=== PATIENT | female | born 1955 | race Caucasian/White ===

== ENCOUNTER 2020-04-28 10:43 | Outpatient (RCR) | payer MEDICARE, OTHER, SELFPAY ==
[2020-04-28] MEDS: COVID-19 VACC, MRNA(PFIZER)/PF 30 MCG/0.3 ML SYRINGE IM (07:27)
[2020-05-19] MEDS: COVID-19 VACC, MRNA(PFIZER)/PF 30 MCG/0.3 ML SYRINGE IM (07:30)
== END 2020-07-28 23:59 ==
LOC: IMMUN 10:43
PROVIDERS: PCP Family Medicine; Visit Provider Family Medicine
DX: Z23 Encounter for immunization (principal)
CPT/HCPCS: 0001A; 0002A; 91300

== ENCOUNTER 2020-10-19 07:00 | Outpatient (RCR) | payer MEDICARE, OTHER, SELFPAY ==
--- NOTE | 2020-09-28 08:11 | HP.PTEVAL_ITS ---
Patient's Visit Information FRANKY VILLANUEVA is a 65 year old F referred to Physical Therapy by Dr. Jerry Hardin MD with a diagnosis of imbalance. Date of Evaluation: 09/28/20 Physical Therapist: Berhane Valle, DPT, OCS, CSCS - Visit Plan Frequency: 2x /Week Duration: 2 Months Plan: Neurocom balance tedst then 2x/week for 4-8 weeks for. 1. vestibular balance ex. 2. strength program LE and posture.(pt to decide gym or home) - Subjective Balance is not great. Had an MRI and thought she had normal pressure hydrocephalus and sent to Dr. Hardin. Does not have that according to Dr. Hardin. Trying to figure out what she has. Does have h/o of DM. Has neuropathy in LE and feet feel funny sometimes. Walking has slowed down. Has not done much since pandemic started and now cannot walk that far. No falls. No AD needed. Symptoms were leaning with walking. Sleep is OK and alot. No real pain. No spinning. Basic ADLs are getting done I but has noticed she gets worn out quickly, stooping is tough. No regular ex. Not employed. Hobbies: walking and music but has gotten away from both of those. Will have test NCT at end of month - Objective Posture is kyphotic T/S positionally, correctable with cues. Holds hand gnarled and palms up appearing neurologic bit function is good and pt says it is an OCD position to avoid germs. No evidence of complaints of leaning L today. I gait and trasnfers bed and chair, I steps. LB and cervical aROM very good and WFL. reflexes 23/ patella and achilles. Sensation LE WNL to my gross light touch, will have NCT end of month. strength LE 3+ hips flexion, abd, ext. 4- knee flex and ext, ankles 4- B. coordination is WNL to toe tap and heel tap reciprocally and heel to perea test. Flexibility HS and quad min deficit. AROM LE WFL. VOR walking is easy. SLS 10 seconds plus. - Balance/Special Test Scores Functional Gait Assessment Score: 29 % Disability: 3.3400 CATSIB Score (Max score 120 seconds): 98 - Goals Goal 1:: Pt feel 90% better in balance and mobility Goal Time Frame: 4-6 Weeks Goal 2:: I approp HEP to minimize future problems Goal Time Frame: 4-6 Weeks Goal 3:: Neurocom balance test and results. Goal Time Frame: 2 Weeks - Rehabilitation Potential Physical Therapy Diagnosis: imbalance liekly from wekaness, sedentarism and possibly vestibular weakness in balance. Rehabilitation Potential: Fair - Anticipated Interventions Patient/Client Instruction: Educate patient on: Condition, Plan of Care For the Purpose of:: To decrease pain, To improve muscle performance and motor function, To increase tolerance to activity/condition/position, To improve ability of physical actions for home/community/work/leisure Therapeutic Exercise to Include: Strength training, Balance training, Neuromotor development For the Purpose of:: To improve muscle performance and motor function, To increase tolerance to activity/condition/position, To improve gait and locomotor functions Thank you for the opportunity to evaluate your patient. For Medicare and Medicare HMO plans, please review the plan of care and approve it. It will need to be FAXED BACK to us at [phone] for Medicare purposes. For Medicare only, by signing this I certify the plan of care. Please let me know if there are questions or concerns regarding this plan of care. Physician Signature: Date:
--- NOTE | 2020-10-05 07:45 | HP.PTCOM_ITS ---
PT Communication Note 10/05/[address] Jerry Hardin MD , Thank you for the referral of Dariela to [facility] for balance assessment. I have enclosed a copy of the results for your review. In summation, she scored low on the visual portion of the Sensory Organization Test. She also score lo on the left excursion, forward excursion adn left control protion of the Limits of Stability test. With these results in mind, I plan to see her 2x/week for 4-8 weeks for her POC to inclusde strength and balance exercise. If there are questions regarding her PT, please feel free to call me. Thank you. Sincerely, Berhane Valle DPT, OCS, CSCS Contact Information
--- NOTE | 2020-12-02 09:29 | HP.PT.NRP ---
FRANKY VILLANUEVA was seen in my office for initial evaluation on 09/28/20. The following Plan of Care was established for this patient: Initial Frequency: 2x /Week Initial Duration: 2 Months Patient/Client Instruction: Educate patient on: Condition, Plan of Care For the Purpose of:: To decrease pain, To improve muscle performance and motor function, To increase tolerance to activity/condition/position, To improve ability of physical actions for home/community/work/leisure Therapeutic Exercise to Include: Strength training, Balance training, Neuromotor development For the Purpose of:: To improve muscle performance and motor function, To increase tolerance to activity/condition/position, To improve gait and locomotor functions This patient was last seen in our office 10/19/20. Pertinent comments regarding their Physical therapy will appear below: Pt seen 5 visits of POC for HEP instruction. She was to f/u a week later to ensure they were going well but did not attend any visits. At this point, it has been over 6 weeks and i will disocntinue due to nonattendance. At this point I will be discontinuing this patient from physical therapy. I would be happy to see this patient again in the future if found appropriate by the physician. Thank you! Brehane Valle, DPT, OCS, CSCS Balance/Gait/Functional tests - Balance/Special Test Scores Functional Gait Assessment Score: 29 % Disability: 3.3400 CATSIB Score (Max score 120 seconds): 98 Lower Extremity Functional Score: 57
== END 2020-10-19 19:00 | disposition home or self-care (01) ==
LOC: PT 07:00
PROVIDERS: PCP Family Medicine; Referring Provider Psychiatry & Neurology Neurology; Visit Provider Psychiatry & Neurology Neurology
DX: R27.0 Ataxia, unspecified (principal)
CPT/HCPCS: 97110; 97162; 97750

== ENCOUNTER 2021-10-20 10:24 | Day surgery (SDC) | payer MEDICARE, OTHER, SELFPAY ==
[2021-10-20] VITALS (7 sets, daily range): BP systolic 102–167; BP diastolic 62–75; PULSE 61–66; RESP 16–18; TEMP 36.4–37.1; O2SAT 98–100; BMI 19.4
--- NOTE | 2021-10-20 | GASB_PTH ---
PATIENT: FRANKY VILLANUEVA LOC: [facility] U#:[id number] AGE/SX: 66/F ROOM: RE10/20/[address]: Dr. Andres Taylor DO : 1955 BED: DIS: 10/20/2021 SPEC #: [id number] RECD: 10/20/21 13:57 STATUS: KRISTIN ANKUR #: [id number] ROGERIO: 10/20/21 00:[address]: Andres Taylor DEPT: SURGICAL PATHOLOGY RECD BY: Olaf Vinson ENTERED: 10/21/21 11:04 SP TYPE: Gastric Bx OT DR: Dr. Gaurav Nunez DO Tissues: A - Gastric mucous membrane B - Duodenum, NOS C - Esophageal mucous membrane Procedures: Special Stain Group I Surgery Specimen Level IV GMS Stain (control) HEADER OPERATION: [place]oscopy, [place] [place] PRE-OP DIAGNOSIS: Chest pain TISSUE SUBMITTED: A ? Gastric antrum biopsy for histo and H. pylori, B ? Duodenum biopsy, C ? Random esophagus biopsy MICROSCOPIC DIAGNOSIS A. Gastric antrum, biopsy: Moderate chronic gastritis. See microscopic description and comment. B. Duodenum, biopsy: Fragments of duodenal mucosa, no pathologic diagnosis. C. Esophagus, random biopsy: Fragments of squamous epithelium with mild chronic inflammation. See comment. SJ:barrera 10/22/2021 COMMENT A. The results of immunohistochemistry for Helicobacter pylori will be reported separately ([id number]). A few fragments of squamous epithelium are noted adherent to the gastric mucosa. Special stain for fungi is positive for organisms in the squamous epithelial fragments (yeast and pseudohyphae) consistent with Anabel species; matched control is appropriate. These fragments may represent contaminant from esophagus. B. Special stain for fungi is positive for organisms (yeast and pseudohyphae) consistent with Anabel species; matched control is appropriate. A few fragments of duodenal mucosa are also noted most likely represents contaminant from duodenal biopsy. MICROSCOPIC DESCRIPTION Slides are reviewed. A. The specimen shows fragments of gastric mucosa with chronic inflammatory cell infiltrates in the lamina propria consisting of lymphocytes and plasma cells, consistent with moderate chronic gastritis. GROSS DESCRIPTION A - Received in fixative is one container labeled with the patient's name and designated antrum biopsy. The specimen consists of two irregular fragments of light coello soft tissue that in aggregate measure 0.6 x 0.3 x 0.1 cm. The specimen is totally submitted in one cassette. B - Received in fixative is one container labeled with the patient's name and designated duodenum biopsy. The specimen consists of two irregular fragments of light coello soft tissue that in aggregate measure 0.6 x 0.2 x 0.1 cm. The specimen is totally submitted in one cassette. C - Received in fixative is one container labeled with the patient's name and designated random esophagus biopsy. The specimen consists of multiple irregular fragments of light coello soft tissue that in aggregate measure 1 x 0.4 x 0.1 cm. The specimen is totally submitted in one cassette. / SJ:rg 10/21/2021 TC:3 CPT: 73913 x3, 23610 x2
--- NOTE | 2021-10-20 10:56 | PCM.HP.BLA ---
History and Physical Date of Admission: 10/20/21 FRANKY VILLANUEVA, is a 66 F who presents to the office today for need to schedule colonoscopy, possible change in bowels.? She reports that [facility] called her back for colonoscopy, last one was approx 3 yrs ago, no abnormal findings that she can recall.? Other than being told she had hemorrhoids.? She reports no change in bowels; she had noted a fullness in the right lower abd. She took Miralax for a week, the fullness resolved. Rare CP that radiates up neck and to ears. Started before she had cardiac w/u which was negative. No heartburn or obvious acid reflux. No nausea or vomiting. No abdominal pain. Typically no bowel complaints. No constipation or diarrhea. No melena or hematochezia. 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 Other comorbidities include anxiety, depression, OCD, hx breast cancer, alcohol use ROS Const Constitutional: Positive for fatigue ENT ENT: No difficulty swallowing Gastro GI: No abdominal pain, belching, bloating, change in bowel habits, change in stool character, coffee ground emesis, constipation, cramping, diarrhea, heartburn, difficulty swallowing, feeling full early, excessive flatus, incontinent of stools, Vomiting blood/hematemesis, Blood in stool, loose stools, Black,tarry stools, nausea/dyspepsia, pain with swallowing, vomiting or other Musc Musculoskeletal: No joint pain Skin Skin: Positive for dry skin; No yellowing of the eye or itchy eyes Psych Psychiatric: No anxiety and Positive for depression Endo Endocrine: Positive for fatigue Aller/Imm Allergy/Immunologic: No itchy eyes Brady/Lymp Hematologic/Lymphatic: No easy bleeding or easy bruising Exam Const General: cooperative, healthy appearing, well developed and well groomed Quality Reporting Tobacco Screening (CMS 138) Smoking Status: Never smoker Assessment and Plan Assessment and Plan (1) Chest pain: ?Status:?Acute (2) Colonoscopy planned: ?Status:?Acute ?Plan - Deedee Gerardo CRUSHER PLANT OPERATOR, CRUSHER PLANT OPERATOR-C: 66-year-old female who has had 2 colonoscopies previously, was called back to update colonoscopy by [facility], last colonoscopy done approximately 3 years ago, unclear why she was called back, she does not recall any abnormalities found on colonoscopy.? She recently had a fullness in the right lower abdomen, after being treated with MiraLAX that resolved.? She has infrequent intermittent chest pain that radiates up to the neck and bilateral ears, she reports negative cardiac work-up.? She is unaware of heartburn or acid reflux.? We will get EGD in addition to colonoscopy.? Need to evaluate for esophagitis, Ambrose's.? We will schedule II week follow-up after endoscopies to discuss biopsy results. I have re-examined the patient. There are no clinical changes since date of exam.
[2021-10-20] MEDS: Lactated Ringers 1,000 ML 15 ML IV (11:06)
[2021-10-20 11:31] LABS: Bedside Glucose 241 mg/dL (74-106)
--- NOTE | 2021-10-20 12:15 | IMM_PTH ---
PATIENT: FRANKY VILLANUEVA LOC: [facility] U#:[id number] AGE/SX: 66/F ROOM: RE10/20/[address]: Dr. Andres Taylor DO : 1955 BED: DIS: 10/20/2021 SPEC #: [id number] RECD: 10/21/21 12:53 STATUS: KRISTIN REZuri #: [id number] ROGERIO: 10/20/21 12:[address]: Andres Taylor DEPT: IMMUNOHISTOCHEMISTRY RECD BY: Beulah Cruz ENTERED: 10/21/21 12:54 SP TYPE: IMMUNO OTHR DR: Dr. Gaurav Nunez DO Tissues: A - Stomach, NOS Procedures: H Pylori (initial) PHYSICIAN & INSTITUTION [place] [id number] SPECIMEN INFORMATION: Tissue Source: A ? Gastric antrum biopsy Clinical Info: Chest pain Specimen Number: [id number] CPT code: 98733 METHODOLOGY: Deparaffinized sections of prefer/formalin-fixed tissue or PAP/DQ stained slides are incubated with monoclonal/polyclonal antibodies/oligonucleotide probes. Localization is made via biotin free immunoperoxidase method. Appropriate controls are performed and reacted as expected. Results on target cell population are indicated in the following table: RESULTS: ANTIBODY / CLONE RESULT Block A H Pylori (polyclonal) negative These tests were developed and their performance characteristics determined by [facility]. They may not have been cleared or approved by the U.S. Food and Drug Administration. The FDA has determined that such clearance or approval is not necessary. The above immunohistochemical/dualISH markers are ordered and reviewed by the Pathologist. INTERPRETATION: A. Gastric antrum, biopsy: Negative for Helicobacter pylori organisms. SJ:barrera 10/22/2021
--- NOTE | 2021-10-20 12:54 | OP.CCLET_ITS ---
11/25/2021 Gaurav Nunez Re : Upper GI endoscopy procedure for Dariela Guidry Dear Mayra This procedure was performed on Wednesday, October 20, 2021. My impressions and recommendations are as follows: Impressions : - Esophageal plaques were found, consistent with candidiasis. Biopsied. - Gastritis. Biopsied. - Normal first portion of the duodenum. Biopsied. Recommendations : - Discharge patient to home. - Resume previous diet. - Continue present medications. My findings are described in the full procedure note, which is enclosed. If I can be of further assistance, please feel free to contact me at . Sincerely, Andres Taylor, 10/20/2021 12:53:56 PM This report has been signed electronically.
--- NOTE | 2021-10-20 12:54 | OP.EGD_ITS ---
Patient Name: Dariela Guidry Procedure Date: 10/20/2021 12:18 PM Date of : 1955 Age: 66 Procedure: Upper GI endoscopy Indications: Functional Dyspepsia, Dysphagia, Suspected reflux esophagitis Providers: Andres Taylor DO Medicines: Monitored Anesthesia Care Patient Profile: This is a 66 year old female. Refer to note in patient chart for documentation of history and physical. Patient has symptoms of acute chest pain. Complications: No immediate complications. Procedure: Pre-Anesthesia Assessment: - Prior to the procedure, a History and Physical was performed, and patient medications and allergies were reviewed. The patient is competent. The risks and benefits of the procedure and the sedation options and risks were discussed with the patient. All questions were answered and informed consent was obtained. Patient identification and proposed procedure were verified by the physician in the pre-procedure area. Mental Status Examination: alert and oriented. Airway Examination: normal oropharyngeal airway and neck mobility. Respiratory Examination: clear to auscultation. CV Examination: normal. Prophylactic Antibiotics: The patient does not require prophylactic antibiotics. Prior Anticoagulants: The patient has taken no previous anticoagulant or antiplatelet agents. ASA Grade Assessment: II - A patient with mild systemic disease. After reviewing the risks and benefits, the patient was deemed in satisfactory condition to undergo the procedure. The anesthesia plan was to use moderate sedation / analgesia (conscious sedation). Immediately prior to administration of medications, the patient was re-assessed for adequacy to receive sedatives. The heart rate, respiratory rate, oxygen saturations, blood pressure, adequacy of pulmonary ventilation, and response to care were monitored throughout the procedure. The physical status of the patient was re-assessed after the procedure. After obtaining informed consent, the endoscope was passed under direct vision. Throughout the procedure, the patient's blood pressure, pulse, and oxygen saturations were monitored continuously. The colonoscope was introduced through the mouth, and advanced to the second part of duodenum. The upper GI endoscopy was accomplished without difficulty. The patient tolerated the procedure well. Scope In: 12:25:35 PM Scope Out: 12:31:49 PM Total Procedure Duration Time 0 hours 6 minutes 14 seconds Findings: Diffuse, yellow plaques were found in the entire esophagus. Biopsies were taken with a cold forceps for histology. Verification of patient identification for the specimen was done. Estimated blood loss was minimal. Localized moderate inflammation characterized by congestion (edema), erosions and erythema was found in the gastric body. Biopsies were taken with a cold forceps for histology. Verification of patient identification for the specimen was done. Estimated blood loss was minimal. The first portion of the duodenum was normal. Biopsies were taken with a cold forceps for histology. Verification of patient identification for the specimen was done. Estimated blood loss was minimal. Impression: - Esophageal plaques were found, consistent with candidiasis. Biopsied. - Gastritis. Biopsied. - Normal first portion of the duodenum. Biopsied. Recommendation: - Discharge patient to home. - Resume previous diet. - Continue present medications. Procedure Code(s): --- Professional --- 19593, Esophagogastroduodenoscopy, flexible, transoral; with biopsy, single or multiple CPT copyright 2017 [employer]. All rights reserved. The codes documented in this report are preliminary and upon coder operator review may be revised to meet current compliance requirements. Andres Taylor DO 10/20/2021 12:53:56 PM This report has been signed electronically. Number of Addenda: 1 Note Initiated On: 10/20/2021 12:18 PM Addendum Number: 1 Addendum Date: 11/25/2021 5:56:38 AM MAC was used as sedation for this procedure. Andres Taylor DO 11/25/2021 5:56:48 AM This report has been signed electronically.
--- NOTE | 2021-10-20 12:57 | OP.COLON_ITS ---
Patient Name: Dariela Guidry Procedure Date: 10/20/2021 12:32 PM Date of : 1955 Age: 66 Procedure: Colonoscopy Indications: Screening for colorectal malignant neoplasm Providers: Andres Taylor DO Medicines: Monitored Anesthesia Care Patient Profile: This is a 66 year old female. Refer to note in patient chart for documentation of history and physical. Patient has symptoms of acute chest pain. Last Colonoscopy: date unknown. Unable to locate last colonoscopy report. Complications: No immediate complications. Procedure: Pre-Anesthesia Assessment: - Prior to the procedure, a History and Physical was performed, and patient medications and allergies were reviewed. The patient is competent. The risks and benefits of the procedure and the sedation options and risks were discussed with the patient. All questions were answered and informed consent was obtained. Patient identification and proposed procedure were verified by the physician in the pre-procedure area. Mental Status Examination: alert and oriented. Airway Examination: normal oropharyngeal airway and neck mobility. Respiratory Examination: clear to auscultation. CV Examination: normal. Prophylactic Antibiotics: The patient does not require prophylactic antibiotics. Prior Anticoagulants: The patient has taken no previous anticoagulant or antiplatelet agents. ASA Grade Assessment: II - A patient with mild systemic disease. After reviewing the risks and benefits, the patient was deemed in satisfactory condition to undergo the procedure. The anesthesia plan was to use moderate sedation / analgesia (conscious sedation). Immediately prior to administration of medications, the patient was re-assessed for adequacy to receive sedatives. The heart rate, respiratory rate, oxygen saturations, blood pressure, adequacy of pulmonary ventilation, and response to care were monitored throughout the procedure. The physical status of the patient was re-assessed after the procedure. After I obtained informed consent, the scope was passed under direct vision. Throughout the procedure, the patient's blood pressure, pulse, and oxygen saturations were monitored continuously. The colonoscope was introduced through the anus and advanced to the cecum, identified by appendiceal orifice and ileocecal valve. The colonoscopy was performed without difficulty. The patient tolerated the procedure well. The quality of the bowel preparation was adequate. Scope In: 12:33:54 PM Scope Withdrawal Time 0 hours 10 minutes 17 seconds Scope Out: 12:49:13 PM Total Procedure Duration Time 0 hours 15 minutes 19 seconds Findings: The perianal and digital rectal examinations were normal. The recto-sigmoid colon was moderately tortuous. There was mild spasm in the sigmoid colon. A few small-mouthed diverticula were found in the sigmoid colon. Impression: - Tortuous colon. - Mild colonic spasm. - Diverticulosis in the sigmoid colon. - No specimens collected. Recommendation: - Discharge patient to home. - Resume previous diet - advance as tolerated to resume previous diet. - Continue present medications. - Repeat colonoscopy in 10 years for screening purposes. Procedure Code(s): --- Professional --- G0121, Colorectal cancer screening; colonoscopy on individual not meeting criteria for high risk CPT copyright 2017 [employer]. All rights reserved. The codes documented in this report are preliminary and upon financial analyst accountant review may be revised to meet current compliance requirements. Andres Taylor DO 10/20/2021 12:56:25 PM This report has been signed electronically. Number of Addenda: 2 Note Initiated On: 10/20/2021 12:32 PM Addendum Number: 1 Addendum Date: 11/25/2021 5:56:56 AM MAC was used as sedation for this procedure. Andres aTylor DO 11/25/2021 5:57:08 AM This report has been signed electronically. Addendum Number: 2 Addendum Date: 11/25/2021 5:57:18 AM MAC was used as sedation for this procedure. Andres Taylor DO 11/25/2021 5:57:24 AM This report has been signed electronically.
--- NOTE | 2021-10-20 12:57 | OP.CCLET_ITS ---
11/25/2021 Gaurav Nunez Re : Colonoscopy procedure for Dariela Guidry Rosendar Mayra This procedure was performed on Wednesday, October 20, 2021. My impressions and recommendations are as follows: Impressions : - Tortuous colon. - Mild colonic spasm. - Diverticulosis in the sigmoid colon. - No specimens collected. Recommendations : - Discharge patient to home. - Resume previous diet - advance as tolerated to resume previous diet. - Continue present medications. - Repeat colonoscopy in 10 years for screening purposes. My findings are described in the full procedure note, which is enclosed. If I can be of further assistance, please feel free to contact me at . Sincerely, Andres Taylor, 10/20/2021 12:56:25 PM This report has been signed electronically.
== END 2021-10-20 14:10 | disposition home or self-care (01) ==
LOC: EN 10:26 → AC 10:28
PROVIDERS: PCP Family Medicine; Referring Provider Family Medicine; Visit Provider Internal Medicine Gastroenterology
PROC: 0DJD8ZZ Inspection of Lower Intestinal Tract, Via Natural or Artificial Opening Endoscopic (ICD-10-PCS; CPT 45378; principal; 2021-10-20 12:10)
DX: K29.50 Unspecified chronic gastritis without bleeding (principal); E10.40 Type 1 diabetes mellitus with diabetic neuropathy, unspecified; Z79.4 Long term (current) use of insulin; K20.90 Esophagitis, unspecified without bleeding; Q43.8 Other specified congenital malformations of intestine; I10 Essential (primary) hypertension; F32.A Depression, unspecified; F41.9 Anxiety disorder, unspecified; E78.00 Pure hypercholesterolemia, unspecified; Z79.82 Long term (current) use of aspirin; Z79.899 Other long term (current) drug therapy
CPT/HCPCS: 43239; 45378; 82962; 88305; 88312; 88342; J7120; J2405

== ENCOUNTER 2023-05-27 12:50 | Emergency (ER) | payer MEDICARE, OTHER, SELFPAY ==
[2023-05-27 12:50] VITALS: BP 198/69; PULSE 70; RESP 18; TEMP 36.1; O2SAT 100; BMI 21.6
--- NOTE | 2023-05-27 13:08 | CT_ITS ---
EXAM: CT HEAD WITHOUT INTRAVENOUS CONTRAST CLINICAL INDICATION: head injury TECHNIQUE: Multiple axial images were obtained of the head without intravenous contrast. This CT exam was performed using one or more of the following dose reduction techniques: automated exposure control, adjustment of the mA and/or kV according to patient size, and/or use of iterative reconstruction technique. RADIATION DOSE: CTDIvol = 44.99 mGy, DLP = 796.11 mGy-cm COMPARISON: No relevant prior studies available. FINDINGS: BRAIN AND EXTRA-AXIAL SPACES: Anterior periventricular white matter hypodensities in both cerebral hemispheres are chronic white matter ischemic changes. No intra- or extra-axial hemorrhage. No intracranial mass or mass effect. Posterior fossa structures are unremarkable. No hydrocephalus. Basal cisterns are patent. BONES/JOINTS: Unremarkable. No discrete lytic or blastic abnormalities. SINUSES: Unremarkable as visualized. Clear. MASTOID AIR CELLS: Unremarkable. Clear. ORBITS: Visualized globes, extraocular muscles, optic nerves and retrobulbar fat appear unremarkable. CT/Brain/Head without Contrast IMPRESSION: 1. No CT evidence of intracranial bleeding, acute ischemic infarct or acute intracranial abnormality. 2. Chronic anterior periventricular white matter ischemic changes in both cerebral hemispheres. Electronically Signed: Nicholas Stuart MD at 14:07 EDT ,
--- NOTE | 2023-05-27 13:08 | CT_ITS ---
EXAM: CT CERVICAL SPINE WITHOUT INTRAVENOUS CONTRAST CLINICAL INDICATION: head injury TECHNIQUE: Helically acquired images were obtained of the cervical spine without intravenous contrast. 2D reformatted images were reviewed. This CT exam was performed using one or more of the following dose reduction techniques: automated exposure control, adjustment of the mA and/or kV according to patient size, and/or use of iterative reconstruction technique. RADIATION DOSE: CTDIvol = 11.89 mGy, DLP = 281.33 mGy-cm COMPARISON: No relevant prior studies available. FINDINGS: VERTEBRAE: Minimal degenerative anterolisthesis of C3 on C4. No discrete lytic or blastic abnormality. Normal vertebral body heights. No suspicious fractures. Normal craniocervical junction and cervicothoracic junction. No lytic or blastic lesions. DISCS/SPINAL CANAL/NEURAL FORAMINA: Pronounced disc space height narrowing at C5-C6 disc space level with mildly prominent osteophyte in the right uncovertebral joint causing mild stenosis of the right C5-C6 intervertebral neural foramen. Normal remaining cervical intervertebral neural foramina. Normal central canal. Normal remaining cervical disc space heights. SOFT TISSUES: Unremarkable. No prevertebral soft tissue swelling. LYMPH NODES: Unremarkable. No cervical adenopathy. LUNG APICES: Unremarkable as visualized. Clear. CT/Spine Cervical without Contras IMPRESSION: 1. No CT evidence of acute fracture of the cervical spine, craniocervical junction and cervicothoracic junction. 2. Mild stenosis of the right C5-C6 intervertebral neural foramen due to osteophyte arising from the right uncovertebral joint and degenerative disc space height narrowing. 3. Minimal degenerative anterolisthesis of C3 on C4. Electronically Signed: Nicholas Stuart MD at 14:11 EDT ,
--- NOTE | 2023-05-27 13:11 | EDS_ITS ---
HPI <MAHSA Blanco - Last Filed: 05/27/23 15:54> HPI - Fall History of Present Illness Chief Complaint: Fall Narrative Narrative: Patient stepped up onto a curb and lost her balance falling backwards striking her head on the pavement. No LOC. Her friend and a passerby helped her up and she was able to ambulate. She went into a restaurant with her friend but seemed confused?she did not recall being there before and seemed confused about ordering. Her friend brought her to the ED for evaluation. She is not on blood thinners. She denies headache, visual changes, nausea or vomiting, or neck pain. Her tailbone feels sore. [facility] <MAHSA Blanco - Last Filed: 05/27/23 15:54> [facility] Medical History (Updated 05/27/23 @ 15:47 by MAHSA Blanco) Alcohol use Anxiety Cancer Change in bowel movement Depression Diabetic neuropathy associated with type 1 diabetes mellitus Diabetic retinopathy Dietary restriction Easy bruising High cholesterol History of stress test Hypertension Insulin dependent diabetes mellitus Non-smoker Right carotid bruit Unsteadiness Vaginal stenosis Wears glasses Home Medications fluoxetine 20 mg capsule 20 mg PO DAILY 06/09/21 [History Last Taken Unknown] insulin glargine 100 unit/mL (3 mL) subcutaneous pen (Lantus Solostar U-100 Insulin) 11 unit subcut QPM 06/09/21 [History Last Taken Unknown] insulin lispro 100 unit/mL subcutaneous pen (Humalog KwikPen (U-100) Insulin) 8 unit subcut TID SLIDING SCALE 06/09/21 [History Last Taken 10/20/21] lisinopril 40 mg tablet 40 mg PO DAILY 06/09/21 [History Last Taken 10/20/21] atorvastatin 10 mg tablet 10 mg PO DAILY 07/15/21 [History Last Taken Unknown] aspirin 81 mg tablet,delayed release 81 mg PO DAILY 10/14/21 [History Last Taken 10/17/21] Allergy/AdvReac Type Severity Reaction Status Date / Time No Known Allergies Allergy Verified 11/08/21 15:31 Surgical History History of cardiac catheterization Hx of colonoscopy S/P lumpectomy of breast Social History Smoking Status: Never smoker alcohol intake: current alcohol intake frequency: 3 or more drinks per day Alcohol type: wine ROS <MAHSA Blanco - Last Filed: 05/27/23 15:54> ROS ED ROS Narrative Eyes: Negative for visual change. GI: Negative for nausea, vomiting. Neuro: Negative for headache, motor/sensory dysfunction. Skin: Positive for skin tear. Musc: Negative for joint pain, swelling, trauma. EXAM <MAHSA Blanco - Last Filed: 05/27/23 15:54> Physical Exam Narrative Exam Narrative: CONST: Patient sitting in no acute distress. EYES: Normal inspection. PERRL, EOMI. ENT: Head normocephalic atraumatic, no raccoon eyes or hernández sign, no hemotympanum, no nasal septal hematoma, no CSF otorrhea or rhinorrhea. NECK: Normal inspection. No midline spinal tenderness, no step off or crepitus. RESP: No respiratory distress, CTAB. Chest wall nontender. CVS: Regular rate and rhythm, no murmur, no gallop. ABD: Soft and nontender, no guarding or rebound, nondistended. Back: Normal inspection, no midline tenderness. SKIN: 4 cm skin tear right dorsal forearm. EXTREMITIES: Normal appearance upper and lower extremities, full ROM, no bony tenderness, 2+ radial DP pulses. NEURO: Alert and oriented x 4. PSYCH: Normal affect. Const Vital Signs: 05/27/23 12:50 05/27/23 13:04 05/27/23 14:50 Temperature 97.0 F L Temperature Source Temporal Pulse Rate 70 72 Respiratory Rate 18 16 Respiratory Effort Normal Non-Labored Respiratory Depth Normal Respiratory Pattern Normal Blood Pressure 198/69 H 176/77 H Blood Pressure Mean 112 110 Pulse Ox 100 97 Oxygen Delivery Method Room Air Room Air <Dr. Rajwinder Naik DO - Last Filed: 05/27/23 15:45> Physical Exam Const Vital Signs: 05/27/23 12:50 05/27/23 13:04 05/27/23 14:50 Temperature 97.0 F L Temperature Source Temporal Pulse Rate 70 72 Respiratory Rate 18 16 Respiratory Effort Normal Non-Labored Respiratory Depth Normal Respiratory Pattern Normal Blood Pressure 198/69 H 176/77 H Blood Pressure Mean 112 110 Pulse Ox 100 97 Oxygen Delivery Method Room Air Room Air [facility] <MAHSA Blanco - Last Filed: 05/27/23 15:54> [facility] Narrative Medical decision making narrative: History gathered from: patient and friend Differential: Closed head injury, skull fracture, intracranial hemorrhage She had a mechanical fall off a curb with head injury. No LOC or blood thinners. She had transient confusion and is now back to baseline. She is awake and alert with GCS 15. She is hypertensive with otherwise stable vital signs. She has no external signs of head injury or basilar skull fracture and no cervical pain. Exam is notable for right forearm skin tear and lower sacral and coccyx tenderness. CT scans of the head and neck show no acute findings. X-ray shows acute coccyx fracture. Patient was advised on symptomatic management including a donut pillow, ice, and [id number] analgesia. She is able to ambulate. She was discharged in stable condition. Patient seen and evaluated with JOSE. I personally interviewed and examined the patient. I was involved in all aspects of patient's orders, interpretation of results, and treatment. Patient presents after a fall. She states she had gone to a shoe store with a friend and was standing on the curb when she remembered she needed to get some coins. She apparently turned and fell off the curb onto the street striking her head. No loss of consciousness. She was helped up by some individuals and then she was able to walk to a restaurant but she did not remember the name of the restaurant and her friend thought that she just seemed off so brought her in for evaluation. Patient denies loss of consciousness. She denies significant neck pain or paresthesias or weakness in extremities. She has been ambulatory. She did sustain a skin avulsion to her right forearm. Also complains of some pain to her tailbone. HEENT-no significant evidence of trauma to her head. She does have some mild soft tissue swelling over the left posterior occipital scalp. No lacerations. No bony step-offs or depressions. No hemotympanum. Pupils equal react light bilaterally. Cardiovascular-heart is regular rate and rhythm with a 2 of 6 stock ejection murmur noted. Lungs-clear to auscultation bilaterally. No chest wall tenderness on exam. Abdomen-normoactive bowel sounds. Soft and nontender to palpation. Extremities-patient has superficial abrasion to the right volar forearm measuring 3 cm in length. No active bleeding. No bony tenderness on exam. Patient does have tenderness to palpation over the sacrum and coccyx on exam. No tenderness to palpation over the lower extremities. Patient presents with a fall with injury to her coccyx and head. CT scan of the brain without contrast was unremarkable. CT of the C-spine showed no fractures only degenerative changes. X-ray of the coccyx and sacrum showed a nondisplaced fracture of the coccyx. This point she will be offered pain medication. She is advised to use a donut cushion when sitting. Advised to follow-up with primary care physician within the next 5 to 7 days. Lab Data Labs: Laboratory Results - last 24 hr 05/27/23 13:18 POC Glucose 233 H Radiography Diagnostic Testing: Clinical Impression(s) from Imaging Studies Brain CT 05/27/23 13:08 IMPRESSION: 1. No CT evidence of intracranial bleeding, acute ischemic infarct or acute intracranial abnormality. 2. Chronic anterior periventricular white matter ischemic changes in both cerebral hemispheres. Electronically Signed: Nicholas Stuart MD at 14:07 EDT Reading Location ID and State: [facility] / [place] , Service support , Cervical Spine CT 05/27/23 13:08 IMPRESSION: 1. No CT evidence of acute fracture of the cervical spine, craniocervical junction and cervicothoracic junction. 2. Mild stenosis of the right C5-C6 intervertebral neural foramen due to osteophyte arising from the right uncovertebral joint and degenerative disc space height narrowing. 3. Minimal degenerative anterolisthesis of C3 on C4. Electronically Signed: Nicholas Stuart MD at 14:11 EDT , Sacrum and Coccyx X-Ray 05/27/23 13:30 IMPRESSION: Suspicious acute incomplete fracture in the dorsal surface of the coccyx. Electronically Signed: Nicholas Stuart MD at 15:38 EDT , <Dr. Rajwinder Naik, DO - Last Filed: 05/27/23 15:45> [facility] Narrative Medical decision making narrative: History gathered from: patient and friend Differential: Closed head injury, skull fracture, intracranial hemorrhage She had a mechanical fall off a curb with head injury. No LOC or blood thinners. She had transient confusion and is now back to baseline. She is awake and alert with GCS 15. She is hypertensive with otherwise stable vital signs. She has no external signs of head injury or basilar skull fracture and no cervical pain. Exam is notable for right forearm skin tear and lower sacral and coccyx tenderness. CT scans of the head and neck show no acute findings. Patient seen and evaluated with JOSE. I personally interviewed and examined the patient. I was involved in all aspects of patient's orders, interpretation of results, and treatment. Patient presents after a fall. She states she had gone to a shoe store with a friend and was standing on the curb when she remembered she needed to get some coins. She apparently turned and fell off the curb onto the street striking her head. No loss of consciousness. She was helped up by some individuals and then she was able to walk to a restaurant but she did not remember the name of the restaurant and her friend thought that she just seemed off so brought her in for evaluation. Patient denies loss of consciousness. She denies significant neck pain or paresthesias or weakness in extremities. She has been ambulatory. She did sustain a skin avulsion to her right forearm. Also complains of some pain to her tailbone. HEENT-no significant evidence of trauma to her head. She does have some mild soft tissue swelling over the left posterior occipital scalp. No lacerations. No bony step-offs or depressions. No hemotympanum. Pupils equal react light bilaterally. Cardiovascular-heart is regular rate and rhythm with a 2 of 6 stock ejection murmur noted. Lungs-clear to auscultation bilaterally. No chest wall tenderness on exam. Abdomen-normoactive bowel sounds. Soft and nontender to palpation. Extremities-patient has superficial abrasion to the right volar forearm measuring 3 cm in length. No active bleeding. No bony tenderness on exam. Patient does have tenderness to palpation over the sacrum and coccyx on exam. No tenderness to palpation over the lower extremities. Patient presents with a fall with injury to her coccyx and head. CT scan of the brain without contrast was unremarkable. CT of the C-spine showed no fractures only degenerative changes. X-ray of the coccyx and sacrum showed a nondisplaced fracture of the coccyx. This point she will be offered pain medication. She is advised to use a donut cushion when sitting. Advised to follow-up with primary care physician within the next 5 to 7 days. Lab Data Labs: Laboratory Results - last 24 hr 05/27/23 13:18 POC Glucose 233 H Radiography Diagnostic Testing: Clinical Impression(s) from Imaging Studies Brain CT 05/27/23 13:08 IMPRESSION: 1. No CT evidence of intracranial bleeding, acute ischemic infarct or acute intracranial abnormality. 2. Chronic anterior periventricular white matter ischemic changes in both cerebral hemispheres. Electronically Signed: Nicholas Stuart MD at 14:07 EDT , Cervical Spine CT 05/27/23 13:08 IMPRESSION: 1. No CT evidence of acute fracture of the cervical spine, craniocervical junction and cervicothoracic junction. 2. Mild stenosis of the right C5-C6 intervertebral neural foramen due to osteophyte arising from the right uncovertebral joint and degenerative disc space height narrowing. 3. Minimal degenerative anterolisthesis of C3 on C4. Electronically Signed: Nicholas Stuart MD at 14:11 EDT , Sacrum and Coccyx X-Ray 05/27/23 13:30 IMPRESSION: Suspicious acute incomplete fracture in the dorsal surface of the coccyx. Electronically Signed: Nicholas Stuart MD at 15:38 EDT , 2 view x-rays of coccyx and sacrum obtained interpreted by myself as minimally displaced coccyx fracture. Radiology in agreement. Discharge Plan Triage Chief Complaint: Fall ED Midlevel Provider: Vika Bill ED Provider: Rajwinder Naik Dx/Rx/DC Orders Clinical Impression: Closed head injury, Skin tear of right upper extremity, Fall, Closed fracture of coccyx Instructions: ED Tailbone (Coccyx) Fracture Prescriptions: No Action lisinopril 40 mg tablet 40 mg PO DAILY fluoxetine 20 mg capsule 20 mg PO DAILY insulin lispro [Humalog KwikPen Insulin] 100 unit/mL insulin pen 8 unit subcut TID Lantus Solostar U-100 Insulin 100 unit/mL (3 mL) insulin pen 11 unit subcut QPM atorvastatin 10 mg tablet 10 mg PO DAILY aspirin [Aspir-81] 81 mg Tablet,Delayed Release (Dr/Ec) 81 mg PO DAILY Primary Care Provider: Norberto Pabon Referrals: Gaurav Nunez DO [Non-Staff] - Activity Restrictions/Additional Instructions: You have fractured your coccyx which is your tailbone. This will heal on its own over 6 to 8 weeks. You can ice and take Tylenol every 6 hours as needed. I recommend buying a donut pillow so that when you sit you do not put pressure on the area. I also want to avoid straining to have a bowel movement as this can cause increased pain so use stool softeners as needed such as MiraLAX or Colace. Disposition Disposition: Home, Self Care
--- NOTE | 2023-05-27 13:30 | RAD_ITS ---
EXAM: XR SACRUM AND COCCYX, 2 OR MORE VIEWS CLINICAL INDICATION: coccyx pain TECHNIQUE: Frontal and lateral views of the sacrum and coccyx. COMPARISON: No relevant prior studies available. FINDINGS: SACRUM/COCCYX: Suspicious tiny crack in the dorsal surface of coccyx. No displaced fracture. No destructive or sclerotic lesions. Note that overlapping bowel shadows may however obscure fine detail in the frontal view. Sacroiliac joints are unremarkable. SOFT TISSUES: Unremarkable. No soft tissue swelling or gas. RAD/Sacrum-Coccyx min 2 Views IMPRESSION: Suspicious acute incomplete fracture in the dorsal surface of the coccyx. Electronically Signed: Nicholas Stuart MD at 15:38 EDT ,
[2023-05-27 13:36] LABS: Bedside Glucose 233 mg/dL (74-106)
[2023-05-27] MEDS: Acetaminophen 325 MG Tablet 650 MG PO (14:39)
[2023-05-27] MEDS: Diphth,Pertuss(Acell),Tet Vac 0.5 ML Vial IM (14:41)
[2023-05-27 14:50] VITALS: BP 176/77; PULSE 72; RESP 16; O2SAT 97
[2023-05-27 16:00] VITALS: BP 177/71; PULSE 68; RESP 16; TEMP 36.6; O2SAT 97
== END 2023-05-27 16:08 | disposition home or self-care (01) ==
PROVIDERS: Emergency Provider Emergency Medicine; PCP Family Medicine; Visit Provider Emergency Medicine
DX: S09.90XA Unspecified injury of head, initial encounter (principal); S32.2XXA Fracture of coccyx, initial encounter for closed fracture; E10.40 Type 1 diabetes mellitus with diabetic neuropathy, unspecified; S41.111A Laceration without foreign body of right upper arm, initial encounter; I10 Essential (primary) hypertension; E78.00 Pure hypercholesterolemia, unspecified; M48.02 Spinal stenosis, cervical region; Z23 Encounter for immunization; W10.1XXA Fall (on)(from) sidewalk curb, initial encounter
CPT/HCPCS: 70450; 72125; 72220; 82962; 90471; 90715; 99282

== ENCOUNTER 2023-10-17 09:10 | Outpatient (RCR) | payer MEDICARE, OTHER, SELFPAY ==
--- NOTE | 2023-10-18 09:44 | HP.PTEVAL_ITS ---
Patient's Visit Information Visit Information Visit Information: FRANKY VILLANUEVA is a 68 year old F referred to Physical Therapy by Dr. Norberto Pabon DO with a diagnosis of B leg weakness. Date of Evaluation: 10/17/23 Physical Therapist: Pj David DPT Visit Plan Frequency: 1x/Week Duration: 6 Weeks Plan: Pt. desires to complete exercises on her own at this point in time. I stressed progressive walking program. I also gave her standing balance/LE strengthening exercises. She does have some edema in BLEs. I first recommending overall more general mobility, but also some compression garments. I also stressed frequent foot checks due to her neuropathy in BLEs. Pt. to complete exercises on her own then follow up with PT as needed. Subjective Subjective: Pt. is here today for her initial evaluation with diagnosis of B leg weakness. Pt. is here today with her friend. Pt. reports over the past few years stemming around the initial stages of the COVID pandemic that she began to be more sedentary and staying with in home. Her also recently resulting in further sedentary lifestyle. She also fell ~4-6 months ago resu lting in reports of further fear of falling and reduced activity. She recently saw podiatry of her LEs, whom suggested overall increased mobility to assist with her BLE edema. Possible vascular insufficiency??? She reports overall being very fearful of falling and does not like to leave the home. She also reports having increased fear while in shower and therefore reduces her bathing routines. Pt. has previously uncontrolled diabetes and has resultant diabetic neuropathy in her LEs. Pt. is hopeful to increase her strength and reduce her risk for future falls. Objective Objective: POSTURE: Pt. has decent posture in stance, Normal wt. shift between BLEs. PALPATION: Pt. has marked edema in B distal LEs. Pt. has some flaking of her skin, no compression stockings on today. NEURO: Reduced sensation to light and sharp touch of BLEs from knee down. Pt. has reduced patellar and achilles DTR 1+ bilaterally. Pt. is able to rise on heels and toes with slight balance aide of wall. ROM: Pt. has good ROM of BLEs without issues. Tightness noted in B HS and B quads. tightness noted in calves as well. MMT: Pt. has 5/5 strength throughout BLEs and symmetrical. GAIT: Pt. ambulates without AD, decent step length noted. Slight occasional lateral deviation, but minimal. TU.2sec without AD 30 sec sit to stand rep test: 13 without use of UEs. STAIRS: Pt. able to complete with use of BHR with reciprocal pattern. Pt. does report increased fear of falling with descending. Balance/Special Test Scores Functional Gait Assessment Score: 24 % Disability: 20.0000 Lower Extremity Functional Score: 33 Goals Goal 1:: LTG: pt. to be I with HEP for balance and progressive walking program. Goal Time Frame: 2-4 Weeks Goal 2:: LTG: Pt. to be have improved FGA to 26/30 indicating increased overall functional stability. Goal 3:: LTG: pt. to have improve TUG time to less than 10sec indicating good functional mobility. Goal Time Frame: 2-4 Weeks Rehabilitation Potential Physical Therapy Diagnosis: Pt. has signs and symptoms consistent with B leg weakness, but more so with high levels of fear of falling and neuropathy in BLEs effecting her balance. Pt. would benefit from a progressive walking program and progressive standing LE exercises with a balance component. Pt. would assist in increasing her general activity tolerance. Rehabilitation Potential: Good Anticipated Interventions Patient/Client Instruction: Educate patient on: Condition, Plan of Care, Risk Factors and Benefits of Fitness Program For the Purpose of:: To improve decision making, To facilitate caregiver knowledge, To improve self management, To prevent re-injury and To improve ability to perform tasks related to life management Therapeutic Exercise to Include: Strength training, Power training, Balance training and Gait and locomotor training For the Purpose of:: To improve nutrient delivery to tissue, To increase oxygenation perfusion, To improve muscle performance and motor function, To improve ability to perform ADL's, To improve health of tissue, To decrease soft tissue restriction, To improve endurance and To improve balance Text: Thank you for the opportunity to evaluate your patient. For Medicare and Medicare HMO plans, please review the plan of care and approve it. It will need to be FAXED BACK to us at [phone] for Medicare purposes. For Medicare only, by signing this I certify the plan of care. Please let me know if there are questions or concerns regarding this plan of care. Physician Signature: Date:
== END 2023-10-17 19:00 | disposition home or self-care (01) ==
LOC: PT 09:10
PROVIDERS: PCP Family Medicine; Referring Provider Family Medicine; Visit Provider Family Medicine
DX: R29.898 Other symptoms and signs involving the musculoskeletal system (principal)
CPT/HCPCS: 97161

== ENCOUNTER → 2024-01-11 | Outpatient (CLI) | payer MEDICARE, OTHER, SELFPAY ==
--- NOTE | 2024-01-11 09:02 | ART_ITS ---
Reason For Study: Decreased pedal pulses Procedure A bilateral lower extremity continuous wave Doppler with analog waveform analysis,segmental pressures,and ankle brachial indexes without exercise. Left Segmental Pressures Left brachial= 173mmHg. Left posterior tibial artery = 218mmHg. Left dorsalis pedis artery = 223mmHg. Left digit = 123 mmHg. The left dorsalis pedis waveforms are triphasic. The left posterior tibial artery waveforms are triphasic. Right Segmental Pressures Right brachial= 169mmHg. Right posterior tibial artery = 212mmHg. Right dorsalis pedis artery = 233mmHg. Right digit = 110 mmHg. The right dorsalis pedis waveforms are triphasic. The right posterior tibial artery waveforms are triphasic. Indices The right ankle brachial index by the dorsalis pedis is 1.35. The right ankle brachial index by the posterior tibial artery is 1.23. The right digital-brachial index is 0.64. The left ankle brachial index by the dorsalis pedis is 1.29. The left ankle brachial index by the posterior tibial artery is 1.26. The left digital-brachial index is 0.71. VL/Lower Ext Art Exam w/o Exercis Interpretation Summary Right NED 1.35, normal. Doppler/PVR waveforms of the right leg normal at rest. TBI diminished, pedal/digit disease vs spasm. Left NED 1.29, normal. Doppler/PVR waveforms of the left leg normal at rest. TB I diminished, pedal/digit disease vs spasm. Ordering Physician: Shayna Villarreal Referring Physician: Norberto Pabon Performed By: Tiffanie Diaz RVT
--- NOTE | 2024-01-11 09:02 | VDLE_ITS ---
Reason For Study: Bilateral leg swelling RIGHT LEFT CFV is compressible, spontaneous, phasic, CFV is compressible, spontaneous, phasic, competent and demonstrates normal competent, and demonstrates normal augmentation. augmentation. FV is compressible, spontaneous, phasic, FV is compressible, spontaneous, phasic, competent and demonstrates normal competent and demonstrates normal augmentation. augmentation. POP V is compressible, spontaneous, phasic, POP V is compressible, spontaneous, phasic, competent and demonstrates normal competent and demonstrates normal augmentation. augmentation. T/P Trunk is compressible. T/P Trunk is compressible. PTV is compressible. PTV is compressible. RT PerV is compressible. LT PerV is compressible. SFJ is competent and measures 0.49 cm. SFJ is competent and measures 0.52 cm. GSV proximal thigh measures 0.30 x 0.30 cm. GSV proximal thigh measures 0.29 x 0.26 cm. GSV above knee is competent. GSV above knee is competent. GSV at knee measures 0.14 x 0.13 cm. GSV at knee measures 0.18 x 0.17 cm. GSV below knee is INCOMPETENT for greater GSV below knee is INCOMPETENT for greater than 0.5 seconds. than 0.5 seconds. ASV mid calf is INCOMPETENT for greater than SSV mid calf is competent and measures 0.15 x 0.5 seconds and measures 0.17 x 0.19 cm. 0.14 cm. SSV mid calf is competent and measures 0.17 x 0.19 cm. Procedure This is a venous duplex using B-mode, color flow and spectral Doppler. Exam performed in department. Patient was scanned in reverse Trendelenburg position during reflux assessment. VL/Venous Duplex US - Dick Extrem Interpretation Summary Deep veins of the bilateral lower extremities are patent and compressible segme ntally. There is no evidence of bilateral lower extremity deep vein thrombosis. The bilateral great saphenous veins appear patent and compressible segmentally. Positive for reflux in the right great saphenous vein below the knee, accessory saphenous vein in the calf. Positive for reflux in the left great saphenous vein below the knee. Ordering Physician: Shayna Villarreal Referring Physician: Norberto Pabon Performed By: Tiffanie Diaz RVT
== END | disposition home or self-care (01) ==
LOC: CVS 08:59
PROVIDERS: PCP Family Medicine; Referring Provider Physician Assistant; Visit Provider Physician Assistant
DX: I73.9 Peripheral vascular disease, unspecified (principal); R60.0 Localized edema; L81.9 Disorder of pigmentation, unspecified
CPT/HCPCS: 93923; 93970

== ENCOUNTER 2024-09-28 09:22 | Inpatient (IN) | payer MEDICARE, OTHER, SELFPAY ==
[2024-09-28 09:24] VITALS: BP 155/57; PULSE 75; RESP 18; TEMP 36.6; O2SAT 100; BMI 21.6
--- NOTE | 2024-09-28 09:36 | CT_ITS ---
PROCEDURE: BRAIN/HEAD WITHOUT CONTRAST 09/28/2024 REASON FOR EXAM: ALTERED MENTAL STATUS TECHNIQUE: BRAIN/HEAD WITHOUT CONTRAST Coronal and Sagittal reconstruction series were provided. One or more dose reduction techniques were used (e.g., Automated exposure control, adjustment of the mA and/or kV according to patient size, use of iterative reconstruction technique. RADIATION DOSE SUMMARY: CTDlvol: 44.99 mGy DLP: 779.24 mGycm COMPARISON: CT head 05/27/2023. FINDINGS: Brain: Extensive low density in the deep cerebral white matter most likely represents advanced chronic small vessel ischemic disease. No acute territorial infarction. No intracranial hemorrhage. No mass-effect or midline shift. Atherosclerotic calcifications of the carotid siphons. CSF Spaces: Advanced generalized cerebral atrophy Sinuses/Mastoids: Clear at visualized levels Bones: No acute bony abnormalities. CT/Brain/Head without Contrast IMPRESSION: No acute intracranial abnormalities. Chronic findings as detailed. Reading Location: [id number]
--- NOTE | 2024-09-28 09:36 | EKG12_ITS ---
Test Reason : CONFUSION Blood Pressure : */* mmHG Vent. Rate : 67 BPM Atrial Rate : 67 BPM P-R Int : 124 ms QRS Dur : 66 ms QT Int : 434 ms P-R-T Axes : 101 5 79 degrees QTcB Int : 458 ms Normal sinus rhythm Nonspecific ST abnormality Abnormal ECG Confirmed by KENNETH MORSE, AILEEN ([id number]), video effects editor JEWEL LEWIS ([id number]) on 09/30/2024 1:10:00 PM Referred By: Confirmed By: AILEEN COOPER MD
--- NOTE | 2024-09-28 09:37 | EDS_ITS ---
HPI History of Present Illness Chief Complaint: Confusion Informant: patient Onset/Context/Timing Onset: Today Timing: Continuous Current Severity: Mild Maximum Severity: Mild Narrative Narrative: 69-year-old female history of diabetes and hypertension. States she has been in her normal state of health today she just felt weird and thought she was little confused. She denies any falls. Denies any headaches. Denies any recent illness. Denies any nausea, vomiting or diarrhea. No fever. No headaches. No shortness of breath. No abdominal pain. She was brought in by paramedics. Reportedly her blood sugar was 100. Prior similar symptoms: No Recent Illness/Hospitalization: No PFSH PFS Medical History Wears glasses Cancer Insulin dependent diabetes mellitus High cholesterol Easy bruising Dietary restriction Non-smoker History of stress test Hypertension Alcohol use Depression Unsteadiness Right carotid bruit Anxiety Change in bowel movement Diabetic retinopathy Diabetic neuropathy associated with type 1 diabetes mellitus Vaginal stenosis Home Medications ?Medication ?Instructions ?Recorded ?Last Taken ?Type insulin lispro 100 unit/mL 8 unit subcut TID SLIDING S SARA 06/09/21 10/20/21 History subcutaneous pen (Humalog KwikPen (U-100) Insulin) blood-glucose sensor (FreeStyle #2 ea 06/20/24 Unknown Rx Yamil 3 Plus Sensor device) blood-glucose,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,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 #1 ea 06/20/24 Unknown Rx (FreeStyle Yamil 3 [place]) cholecalciferol (vitamin D3) 25 25 mcg PO QDAY 5 Unknown History mcg (1,000 unit) capsule insulin glargine 100 unit/mL (3 13 unit subcut QPM 03/16 Unknown History mL) subcutaneous pen (Lantus Solostar U-100 Insulin) multivitamin 1 tab PO QAM 06/20/24 Unknow n History atorvastatin 10 mg tablet 10 mg PO DAILY #90 tabs 06/20 06/14 Unknown Rx lisinopril 40 mg tablet 40 mg PO DAILY #90 tabs 06/20 06/14 Unknown Rx Allergy/AdvReac Type Severity Reaction Status Date / Time No Known Allergies Allergy Verified 09/28/24 09:27 Surgical History History of cardiac catheterization Hx of colonoscopy S/P lumpectomy of breast Social History Smoking Status: Never smoker alcohol intake: current alcohol intake frequency: 3 or more drinks per day Alcohol type: wine substance use type: does not use what type of physical activity do you participate in: none ROS ROS ED ROS Narrative Denies recent illness. Constitutional Constitutional ED: Denies chills or fever(s) Eyes Eyes: Denies blurry vision ENT ENT ED: Denies ear pain Cardiovascular Cardiovascular: Denies chest pain Respiratory/Chest Respiratory/Chest: Denies cough or dyspnea Gastrointestinal Gastrointestinal: Denies abdominal pain, diarrhea, nausea or vomiting Genitourinary Genitourinary ED: Denies dysuria or hematuria Musculoskeletal Musculoskeletal: Denies arthralgias Integumentary Denies abscess Neurologic Neurologic: Denies headache(s) Psychiatric Psychiatric: Denies anxiety Endocrine Endocrinology: Denies cold intolerance Hematologic/Lymphatic Hematologic/Lymphatic: Reports none Allergic/Immunologic Allergic/Immunologic ED: Denies mouth swelling, tongue swelling or urticaria EXAM Physical Exam Narrative Exam Narrative: Well-appearing 69-year-old female. Vital signs stable afebrile. Pulse ox 100% on room air no signs of hypoxia. No family is currently with her. H EENT exam pupils round react light extra motions are intact. Moist mucous membranes. No facial droop. No trauma. Nontender. Neck nontender no lymphadenopathy. No meningismus. Back nontender. Lungs clear to auscultation bilaterally. Heart regular rhythm rate about 75 no murmur. Chest wall and ribs are nontender. Ab domen soft nontender. Moving all 4 extremities. Bilateral 5 out of 5 hemodialysis charge nurse strength. Dorsi plantarflexion intact. She has trace edema equal and symmetrical in both lower extremities. They are nontender. Neurologically she is awake and alert. She knows the month, the season, the year and the president [facility] states. She has normal speech. She has no focal motor deficits. She is answering questions and following commands. Very benign exam. Const Vital Signs: 09/28/24 09:24 Temperature 97.8 F Temperature Source Oral Pulse Rate 75 Respiratory Rate 18 Blood Pressure 155/57 H Blood Pressure Mean 89 Pulse Ox 100 Oxygen Delivery Method Room Air Positive well nourished and well developed; Negative for cachectic, contractures or unkempt General Appearance ED: well developed and NAD; Negative for unkempt, cachectic, contractures, cyanotic, diaphoretic or pallor Nutritional Appearance: Negative for cachectic HEENT Reports moist mucous membranes Negative for trauma or tenderness Eyes PERRL and EOMs intact bilaterally General Eye ED: Negative for pale conjunctiva or scleral icterus Neck no lymphadenopathy, supple and no JVD Chest Wall inspection of chest normal and palpation of chest normal Resp normal respiratory effort and clear to auscultation bilaterally Cardio regular rate, regular rhythm, S1 normal heart sound, S2 normal heart sound and no murmurs GI normal to inspection, nondistended, normoactive bowel sounds, non-tender, non- distended and no masses Palpation: soft; Negative for tender, guarding or rebound tenderness present Back/Spine no CVA tenderness General Back: Negative for CVA tenderness Cervical Spine: Negative for cervical spine tenderness Thoracic Spine / Upper Back: Negative for thoracic spinal tenderness or paraspinal muscle tenderness Lumbar Spine / Lower Back: Negative for lumbar spinal tenderness Extremity Negative for normal to inspection Extremity Narrative: Edema both lower extremities. General Extremety ED: Yes edema; Negative for tenderness General Extremity: edema Neuro oriented x3 and CN's II-XII intact bilaterally Sensorium / Orientation: alert; Negative for orientation impaired or lethargic Motor Exam: strength 5/5 throughout Psych mental status grossly normal Appearance: Negative for unkempt Mood & Affect: anxious Skin no rashes or lesions noted and no wounds General Skin Exam: Negative for jaundice or pallor Lesions: No lesion noted Rashes: No rashes noted MDM MDM MDM Narrative Medical decision making narrative: 69-year-old diabetic female with confusion this morning. Graham benign. Currently she is awake and alert. Knows day, month, year and president. Knows where she is currently. CAT scan of her brain and labs are being obtained. Differential would include acute neurologic event, infection, dehydration, electrolyte abnorm alities, etc. Multiple repeat exams patient is very anxious but she is doing well. She had great difficulty using the walker to get to the bathroom. She fell backwards when she was giving urine. But did not fall to the floor or injure herself. She was unable to get herself out of the bed by herself. She will be admitted for failure to thrive, rule out UTI, generalized weakness, anxiety. I have spoken to the hospitalist. He will be down evaluate for admission. History & Record Review Discussion w/independent historian: Patient Additional record(s) reviewed:: Prior inpatient record, Prior outpatient record, Prior ED visit and Prior labs Lab Data Attestation: I reviewed the patient's lab results. Lab results narrative: CBC shows a normal white count of 6.7. H&H 11.9 and 33. Platelets 404. Chemistry shows sodium 135. Gap 15. BUN/creatinine 24 and 0.7. Glucose 119. Liver enzymes normal. UA shows no nitrates. 5-10 white cells. Positive leukocyte Estrace. No bacteria. No red cells. Urine culture was sent. Alcohol negative. Chest x-ray shows chronic changes. CT of the brain chronic changes. Labs: Laboratory Results - last 24 hr 09/28/24 09/28/24 09:26 09:55 WBC 6.7 RBC 3.84 L Hgb 11.9 L Hct 33.7 L MCV 87.8 MCH 31.0 MCHC 35.3 RDW Std Deviation 37.6 RDW Coeff of Imelda 11.7 Plt Count 404 MPV 9.4 Immature Gran % (Auto) 0.400 Neut % (Auto) 67.4 Lymph % (Auto) 20.4 [place] % (Auto) 10.3 H Eos % (Auto) 0.9 Baso % (Auto) 0.6 Absolute Neuts (auto) 4.5 Absolute Lymphs (auto) 1.36 Nucleated RBC % 0 Sodium 135 Potassium 3.3 Chloride 97 L Carbon Dioxide 23.2 Anion Gap 15 BUN 24 H Creatinine 0.73 Estim Creat Clear Calc 56.50 Est GFR (MDRD) Non-Af 88 BUN/Creatinine Ratio 32.0 H Glucose 119 H Calcium 10.1 Total Bilirubin 0.50 AST 23 ALT 15 Alkaline Phosphatase 90 Total Protein 7.2 Albumin 4.2 Globulin 3.0 Albumin/Globulin Ratio 1.4 Urine Color Yellow Urine Clarity Clear Urine pH 8.0 Ur Specific [place] 1.010 Urine Protein 30 H Urine Glucose (UA) Normal Urine Ketones 5 H Urine Occult Blood Negative Urine Nitrite Negative Urine Bilirubin Negative Urine Urobilinogen Normal Ur Leukocyte Esterase 500 H Urine RBC 0 SEEN Urine WBC 5-10 SEEN Ur Squamous Epith Cells 0-5 SEEN Urine Bacteria 0 SEEN Urine Mucus 0 SEEN Ethyl Alcohol < 10.1 Radiography Chest X-Ray - ED: 2 View, Read by ED Physician, Read by Radiologist, Lungs, Mediastinum, Bony Structures, No Acute Disease and Chronic Changes Diagnostic Testing: Clinical Impression(s) from Imaging Studies Brain CT 09/28/24 09:36 IMPRESSION: No acute intracranial abnormalities. Chronic findings as detailed. Reading Location: [id number] Chest X-Ray 09/28/24 10:05 IMPRESSION: No acute cardiopulmonary abnormalities. Reading Location: [id number] Chest x-ray, 2 views, AP and lateral, interpreted both by myself and the radiologist shows no acute abnormality. Normal cardiac silhouette. Normal lung valdovinos. Chronic changes. No acute process. Rhythm Strip Rhythm Strip: Sinus Rhythm Rate: 67 Ectopy: None EKG Initial EKG: Attestation: I personally reviewed and interpreted this EKG as follows: Interpretation: Sinus Rhythm and No Acute Injury Pattern Comments: Normal sinus rhythm rate of 67 no acute signs of ID or ischemia. No dysrhythmia. Discharge Plan Triage Chief Complaint: Confusion ED Provider: Manuel Talavera Dx/Rx/DC Orders Clinical Impression: Generalized weakness, Adult failure to thrive, Unable to ambulate, Acute UTI, History of diabetes mellitus Prescriptions: No Action insulin lispro [Humalog KwikPen Insulin] 100 unit/mL insulin pen 8 unit subcut TID Lantus Solostar U-100 Insulin 100 unit/mL (3 mL) insulin pen 13 unit subcut QPM multivitamin Tablet 1 tab PO QAM cholecalciferol (vitamin D3) 25 mcg (1,000 unit) capsule 25 mcg PO QDAY (DME) FreeStyle Yamil 3 [place] Misc See Rx Instructions .Route Qty: 1 0RF Rx Instructions: As directed (DME) FreeStyle Yamil 3 Plus Sensor Device See Rx Instructions .Route Qty: 2 5RF Rx Instructions: 1 sensor q 15 days atorvastatin 10 mg tablet 10 mg PO DAILY Qty: 90 1RF lisinopril 40 mg tablet 40 mg PO DAILY Qty: 90 1RF Primary Care Provider: Norberto Pabon Referrals: Norberto Pabon DO [Primary Care Provider] - Print Language: French Disposition Disposition: [facility]
[2024-09-28 09:49] LABS: Hematocrit 33.7 % (37-47); Hemoglobin 11.9 g/dL (12.0-15.0); Immature Granulocytes Count 0.030 X10^3/uL (0.0-0.0); Mean Corp Hgb Conc 35.3 g/dL (32-36); Mean Corpuscular Volume 87.8 fL (81-99); Mean Platelet Vol. 9.4 fl (6.2-12.0); NRBC Flagged by Analyzer 0 % (0-5); Platelet Count 404 K/mm3 (150-450); RBC Distribution Width CV 11.7 % (11.6-14.6); RBC Distribution Width SD 37.6 fl (35.1-43.9); Red Blood Count 3.84 M/mm3 (4.2-5.4); White Blood Count 6.7 K/mm3 (4.4-11.0)
--- NOTE | 2024-09-28 10:05 | RAD_ITS ---
PROCEDURE: CHEST PA AND LATERAL 09/28/2024 REASON FOR EXAM: CONFUSED TECHNIQUE: CHEST PA AND LATERAL COMPARISON: None. FINDINGS: Hardware: Surgical clips in the right axilla. Heart: No cardiomegaly. Mediastinum: Unremarkable. Lungs: Clear. No pleural effusion or pneumothorax. Bones: No acute bony abnormalities. RAD/Chest PA and Lateral IMPRESSION: No acute cardiopulmonary abnormalities. Reading Location: [id number]
[2024-09-28 10:08] LABS: Mucous, Urine 0 SEEN /hpf (<or=2+); Red Blood Cells-Urine 0 SEEN /hpf (0-5)
[2024-09-28 10:11] LABS: Color, Urine Yellow (Yellow); Glucose, Dipstick Normal (Normal); Ketone-Dipstick 5 mg/dl (Negative); Leukocyte Esterase-Dipstick 500 /ul (Negative); Nitrite-Dipstick Negative (Negative); Occult Blood-Urine Negative /ul (Negative); Protein-Dipstick 30 mg/dl (Negative); Specific Gravity, Urine 1.010 (1.002-1.030); Urine Bilirubin Dipstick Negative (Negative)
[2024-09-28 10:19] LABS: AST(SGOT) 23 U/L (<=31); Alanine Aminotransfer ALT/SGPT 15 U/L (<=34); Albumin, Serum 4.2 g/dL (3.4-4.8); Alcohol, Blood (Medical)-Serum < 10.1 mg/dL (<=10.0); Alkaline Phosphatase 90 U/L (35-104); Anion Gap 15 (5-15); BUN 24 mg/dL (4-19); BUN/Creat Ratio 32.0 RATIO (10-20); Calcium,Total 10.1 mg/dL (7.6-11.0); Carbon Dioxide 23.2 mmol/L (21.0-32.0); Chloride 97 mmol/L (98-108); Estimated Creatinine Clearance 56.50 ml/min (50-250); Globulin 3.0 g/dL (2.2-4.2); Glucose 119 mg/dL (70-99); Potassium 3.3 mmol/L (3.3-5.1)
[2024-09-28 10:21] LABS: Squamous Epithelial Cells - UA 0-5 SEEN /hpf (5-10)
--- OUTSIDE RECORDS SUMMARY | 2024-09-28 10:33 | XMS RPT_ITS | CCD ---
Author Organization [facility] Care Team Providers Care Director Auto Name Role Phone Gaurav Nunez DO Primary Care Provider Dr. Gaurav Nunez Primary Care Provider [phone] Dr. Gaurav Nunez Referring Provider [phone] [place], SHE[employer] SCRAPMAN-C Arianna Wall Attending Provider Friend, Dr. Campos Attending Provider Friend, Dr. Campos Other Provider Gaurav Nunez DO Primary Care Provider GAURAV NUNEZ Referring Unavailable GAURAV NUNEZ Primary Care Unavailable Norberto Gómez DO Primary Care Provider Norberto Gómez DO Primary Care Provider Norberto Gómez DO Primary Care Provider Norberto Gómez DO Primary Care Provider Allen Rapp PA-C Unavailable Norberto Gómez DO Primary Care Provide r Gaurav Nunez DO Primary Care Provider NORBERTO GÓMEZ Primary Care Unavail NORBERTO Smith Primary Care Unavail NORBERTO Smith Primary Care Unavail MICHAEL Ferguson Attending UnavailDr. Norberto Theodore DO Primary Care Provider [phone] Dr. Norberto Gómez DO Referring Provider Shayna Munoz Attending Provider Willow Mccarthy Attending Provider Dalia GARCIA, Dr. Thornton Primary Care Provider Dr. Norberto Gómez DO Referring Provider [phone] ALLEN RAPP Attending Unavailable TAMELA, ALLEN Referring Unavailable PETRILLA, NORBERTO Primary Care Unavailable ALLEN RAPP Attending Unavailable TAMELA, ALLEN Referring Unavailable PETRILLA, NORBERTO Primary Care Unavailable PETRILLA, NORBERTO Attending Unavailable PETRILLA, NORBERTO Primary Care Unavailable PETRILLA, NORBERTO Attending Unavailable PETRILLA, NORBERTO Primary Care Unavailable PASCUAL, PRISCA K Attending Unavailable PETRILLA, NORBERTO Primary Care Unavailable PASCUAL, PRISCA K Attending Unavailable PETRILLA, NORBERTO Primary Care Unavailable PASCUAL, PRISCA K Referring Unavailable PETRILLA, NORBERTO Primary Care Unavailable PASCUAL, PRISCA K Attending Unavailable PETRILLA, NORBERTO Primary Care Unavailable PETRILLA, NORBERTO Attending Unavailable PETRILLA, NORBERTO Primary Care Unavailable PETRILLA, NORBERTO Attending Unavailable PETRILLA, NORBERTO Referring Unavailable PETRILLA, NORBERTO Primary Care Unavailable PETRILLA, NORBERTO Attending Unavailable PETRILLA, NORBERTO Referring Unavailable PETRILLA, NORBERTO Primary Care Unavailable PETRILLA, NORBERTO Primary Care Unavailable Shayna Villarreal Attending Unavailable Villarreal, Shayna Referring Unavailable Petrilla, Norberto Primary Care Unavailable Petrilla, Norberto Referring Unavailable Petrilla, Norberto Primary Care Unavailable Willow Barragan Attending Unavailable Petrilla, Norberto Referring Unavailable Petrilla, Norberto Primary Care Unavailable Willow Barragan Attending Unavailable Villarreal, Shayna Referring Unavailable Petrilla, Norberto Primary Care Unavailable Berhane Chen Attending Unavailable Petrilla, Norberto Referring Unavailable Petrilla, Norberto Primary Care Unavailable Willow Barragan Attending Unavailable Shayna Villarreal Attending Unavailable Petrilla, Norberto Referring Unavailable Petrilla, Norberto Primary Care Unavailable VillarrealGui tejedaison Attending Unavailable Petrilla, Norberto Referring Unavailable Petrilla, Norberto Primary Care Unavailable Willow Barragan Attending Unavailable Petrilla, Norberto Referring Unavailable Petrilla, Norberto Primary Care Unavailable Petrilla, Norberto Referring Unavailable Petrilla, Norberto Primary Care Unavailable Petrilla, Norberto Attending Unavailable Medications Current Medications Medication Drug Class(es) Dates Sig (Normalized) Sig (Original) atorvastatin 10 mg oral tablet (20 sources) HMG-CoA Reductase Inhibitor Start: 07-15-2021 End: 07-03-2024 take 1 tablet by mouth once daily Atorvastatin 10 mg tablet Active 10 mg PO DAILY 90 July 035 12:06pm High blood cholesterol Pure hypercholesterolemi a, unspecified Start: 09-14-2020 End: 06-16-2021 take 1 tablet by mouth once daily atorvastatin (LIPITOR) 10 mg tablet Indications: Pure hypercholesterolemia Take 1 tablet by mouth once daily. 90 tablet 3 06/16/2021 Active Comment on above: Take 1 tablet by som th once daily. Blood Glucose Monitoring Suppl (FreeStyle Lite) device (20 sources) Start: inject 1 dose by subcutaneous injection three times daily Blood Glucose Monitoring Suppl (FreeStyle Lite) device Indications: Type 2 diabetes mellitus without complication, without long-term current use of insulin (HCC) Inject 1 each under the skin 3 times daily. Use as instructed E11.9 1 each 05/02/2022 Active Start: 05-02-2022 inject 1 dose by sub cutaneous injection three times daily Blood Glucose Monitoring Suppl (FreeStyle Lite) device Indications: Type 2 diabetes mellitus without complication, without long-term current use of insulin (CMS/HCC) (HCC) Inject 1 each under the skin 3 times daily. Use as instructed E11.9 1 each 05/02/2022 Active Start: 05-02-2022 inject 1 dose by sub cutaneous injection three times daily Blood Glucose Monitoring Suppl (FreeStyle Lite) device Indications: Type 2 diabetes mellitus without complication, without long-term current use of insulin (CMS/HCC) (HCC) Inject 1 each under the skin 3 times daily. Use as instructed E11.9 1 each 0 05/02/2022 Active Blood-Glucose Meter (FREESTYLE LITE METER) monitoring kit (19 sources) Start: 02-05-2015 Blood-Glucose Meter (FREESTYLE LITE METER) monitoring kit Indications: Type 1 diabetes mellitus with complications (HCC) Use to glucose as directed. 1 Each 3 02/05/2015 Active Comment on above: Use to glucose as di rected. 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 9 each 3 06/19/2024 Active Blood-Glucose Sensor (Freestyle Yamil 3 Plus Sensor) device (3 sources) Start: 06-20-2024 Blood-Glucose Sensor (Freestyle Yamil 3 Plus Sensor) device Active 0 .Route 2 June 20, 2024 12:00am Type 1 diabetes mellitus with hyperglycemia Type 1 diabetes mellitus with hyperglycemia 1 sensor q 15 days Start: 06-20-2024 Blood-Glucose Sensor (Freestyle Yamil 3 Plus Sensor) device Active 0 .Route 2 June 20, 2024 12:00am 1 sensor q 15 days Blood-Glucose,Bar Manager,Cont (Freestyle Yamil 3 Kent) misc (2 sources) Start: 06-20-2024 Blood-Glucose,Bar Manager,Cont (Freestyle Yamil 3 Kent) misc Active 0 .Route 1 0 June 20, 2024 12:00am Type 1 diabetes mellitus with hyperglycemia Type 1 diabetes mellitus with hyperglycemia As directed Start: 06-20-2024 Blood-Glucose, Bar Manager,Cont (Freestyle Yamil 3 Kent) misc Active 0 .Route 1 June 20, 2024 12:00am As directed cholecalciferol 0.025 mg oral capsule (20 sources) Vitamin D Start: 06-20-2024 take 1 capsule by mouth once daily Cholecalciferol (Vitamin D3) 25 mcg (1,000 unit) capsule Active 25 ug PO daily June 20, 2024 12:00am Start: 06-16-2023 take 1 capsule by mo uth in the morning cholecalciferol (Vitamin D-3) 50 MCG (2000 UT) capsule Take 2,000 Units by mouth in the morning. 06/16/2023 Active Start: 06-16-2023 take 1 capsule by mo uth once daily Cholecalciferol, Vitamin D3, (VITAMIN D-3) 50 mcg (2,000 unit) cap Indications: Vitamin D deficiency Take 1 capsule by mouth once daily. 06/16/2023 Active ergocalciferol 1.25 mg oral capsule (4 sources) Provitamin D2 Compound Start: 10-13-2022 End: 12-02-2022 take 1 capsule by mouth every week ergocalciferol (Vitamin D-2) 1.25 MG (87937 UT) capsule Indications: Vitamin D deficiency Take 1 capsule (1.25 mg) by mouth 1 (one) time per week for 8 doses. 8 capsule 0 10/13/2022 12/02/2022 Active FLUoxetine 20 mg oral tablet (20 sources) Serotonin Reuptake Inhibitor Start: 03-31-2022 End: 07-04-2022 take 1 capsule by mouth once daily FLUoxetine (PROzac) 10 MG capsule Take 1 capsule (10 mg) by mouth daily. 90 capsule 0 03/31/2022 07/04/2022 Discontinued Start: 09-14-2020 End: 05-30-2023 take 1 tablet by mouth once daily FLUoxetine HCl 20 mg tablet Take 1 tablet by mouth once daily. 90 tablet 3 11/08/2022 Active Start: 05-27-2020 End: 06-20-2024 take 1 capsule by mouth once daily Fluoxetine 20 mg capsule Discontinued 20 mg PO DAILY June 09, 2021 12:00am June 20, 2024 9:16am Comment on above: Take 1 tablet by som th once daily. take 1 tablet by som th once daily indapamide 2.5 mg oral tablet (20 sources) Thiazide-like Diuretic Start: 03-20-2024 End: 03-20-2025 take 1 tablet by mouth once daily in the morning indapamide (Lozol) 2.5 MG tablet Take 1 tablet (2.5 mg) by mouth every morning. 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 15 mL 3 01/21/2022 Active insulin glargine (LANTUS) 100 UNIT/ML injection pen Inject 11 Units into the skin nightly 0 Active Comment on above: Inject 11 Units subcutaneously daily at bedtime. 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 CORRECTION DOSES 1:50 OVER 150, UP TO 30 UNITS DAILY 30 mL 3 05/16/2024 Active Start: 06-09-2021 Insulin Lispro (Humalog Kwikpen Insulin) 100 unit/mL insulin pen Active 8 U SC THREE TIMES A DAY June 09, 2021 12:00am SLIDING SCALE Start: 01-19-2021 End: 01-29-2024 inject 10 [IU] by subcutaneous injection three times daily at mealtime insulin lispro (HumaLOG) 100 UNIT/ML injection Inject subcutaneously 10 units three times daily at meals. 01/21/2022 Active insulin lispro ( HUMALOG) 100 UNIT/ML pen Indications: 1 unit per 8 grams of carbs tid Inject into the skin See Admin Instructions Indications: 1 unit per 8 grams of carbs tid 0 Active Comment on above: Inject subcutaneousl y 10 units three times daily at meals. Inject subcutaneousl y 1:10 TID meals and correction 1:50 over 150 up to 30 units daily metroNIDAZOLE 500 mg oral tablet (14 sources) Nitroimidazole Antimicrobial Start: 10-10-19 End: 10-19-19 24 take 1 tablet by mouth in the morning metroNIDAZOLE (Flagyl) 500 MG tablet Take 1 tablet (500 mg) by mouth in the morning and 1 tablet (500 mg) in the evening. Do all this for 7 days. 14 tablet 10/12/2023 10/19/2023 Active Start: 05-30-2023 End: 06-06-2023 take 1 tablet by mouth three times daily metroNIDAZOLE (Flagyl) 250 MG tablet Take 1 tablet (250 mg) by mouth 3 times daily for 7 days. 21 tablet 0 05/30/2023 06/06/2023 Active Multiple Vitamin (MULTIVITAM IN ADULT PO) (20 sources) Multiple Vitamin (MULTIVITAMIN ADULT PO) Take by mouth. Active Multiple Vitamin (MULTIVITAMIN ADULT PO) Take by mouth. 0 Active Multivitamin tablet (3 sources) Start: 06-20-2024 Multivitamin tablet Active 1 {tbl} PO EVERY MORNING June 20, 2024 12:00am terconazole 80 mg vaginal insert (1 source) Azole Antifungal Start: 06-05-2023 End: 06-12-2023 terconazole (Terazol 3) 80 MG vaginal suppository Insert 1 suppository (80 mg) into the vagina Nightly for 7 days. 7 suppository 0 06/05/2023 06/12/2023 Active triamcinolone acetonide 1 mg/ml topical cream (20 sources) Corticosteroid Start: 07-03-2023 triamcinolone (Kenalog) 0.1 % cream Apply topically 2 times daily. 07/03/2023 Active 24 hr venlafaxine 37.5 mg extended release oral capsule (9 sources) Serotonin and Norepinephrine Reuptake Inhibitor Start: 05-20-2024 End: 07-19-2024 take 1 capsule by mouth once daily venlafaxine XR (Effexor XR) 37.5 MG 24 hr capsule Take 1 capsule (37.5 mg) by mouth daily. Do not crush or chew. 30 capsule 1 05/20/2024 Active Completed/Discontinued Medications Medication Drug Class(es) Dates Sig (Normalized) Sig (Original) acetaminophen 325 mg / HYDROcodone bitartrate 5 mg oral tablet (4 sources) Opioid Agonist Start: 05-27-2023 End: 12-28-2023 Hydrocodone-Acetami nophen 5-325 mg tablet Discontinued 1 {tbl} PO EVERY 6 HOURS as needed for pain 12 3 0 May 27, 2023 December 28, 2023 10:01am Closed fracture of coccyx Fracture of coccyx, initial encounter for closed fracture Start: 05-27-2023 take 1 tablet by som th every six hours Hydrocodone-Acetaminophen Active 1 TABLE T PO EVERY 6 HOURS 12 3 May 27, 2023 aspirin 81 mg delayed release oral tablet (9 sources) Platelet Aggregation Inhibitor, Nonsteroidal Anti-inflammatory Drug Start: 09-14-2020 End: 12-28-2023 take 1 tablet by mouth once daily Aspirin (Aspir-81) 81 mg Tablet,Delayed Release (Dr/Ec) Discontinued 81 mg PO DAILY October 14, 2021 12:00am December 28, 2023 10:01am Comment on above: Take 1 tablet by mouth once daily. DULoxetine 30 mg delayed release oral capsule (19 sources) Serotonin and Norepinephrine Reuptake Inhibitor Start: 04-29-2024 End: 05-29-2024 take 1 capsule by mouth twice daily DULoxetine (Cymbalta) [address] capsule Take 1 capsule (30 mg) by mouth 2 times daily. Do not crush or chew. 60 capsule 2 04/29/2024 05/20/2024 Discontinued (Side effects) furosemide 40 mg oral tablet (20 sources) Loop Diuretic Start: 07-20-2023 End: 03-20-2024 furosemide (Lasix) 40 MG tablet Indications: Peripheral edema Increase to 1 in the morning and one half in the evening. 45 tablet 1 08/15/2023 03/20/2024 Discontinued (Ineffective) Start: 06-16-2023 End: 07-20-2023 take 1 tablet by mouth once daily furosemide (LASIX) 20 mg tablet Indications: Venous insufficiency (chronic) (peripheral) Take 1 tablet by mouth once daily. 30 tablet 11 06/16/2023 Active hydroCHLOROthiazide 25 mg oral tablet (17 sources) Thiazide Diuretic Start: 05-30-2023 End: 06-19-2024 hydroCHLOROthiazide 25 mg tablet Take 25 mg by mouth. 05/30/2023 06/19/2024 Discontinued (Changing Therapy/Dosage Form) lisinopril 40 mg oral tablet (20 sources) Angiotensin Converting Enzyme Inhibitor Start: 01-19-2021 End: 07-03-2024 take 1 tablet by mouth once daily Lisinopril 40 mg tablet Discontinued 40 mg PO DAILY June 09, 2021 12:00am July 03, 2024 12:06pm take 1 tablet by mouth once joaquin y lisinopril (PRINIVIL;ZESTRIL) 20 MG tablet Take 20 mg by mouth daily Daily 0 Active Comment on above: Take 1 tablet by som th once daily. nystatin [id number] unt/ml oral suspension (4 sources) Polyene Antifungal Start: 10-22-2021 End: 10-29-2021 take 1 mL by mouth twice daily Nystatin 100,000 unit/mL suspension Discontinued 10 mL PO TWICE A DAY 140 7 0 October 22, 2021 12:00am October 28, 2021 12:00am October 29, 2021 12:04am swish and swallow Start: 10-22-2021 End: 10-29-2021 take 1 mL by mouth twice daily Nystatin Discontinued 1 0 ML PO TWICE A DAY 140 7 October 22, 2021 12:00am October 29, 2021 12:04am swish and swallow sucralfate 100 mg/ml oral suspension (4 sources) Aluminum Complex Start: 10-22-2021 End: 05-10-2022 take 1 mL by mouth three times daily 1 hour(s) before mealtime Sucralfate 100 mg/mL suspension Discontinued 10 mL PO THREE TIMES A DAY 1000 0 October 22, 2021 12:00am May 10, 2022 4:03pm take three times a day one hour before meals and two hours away from other medications. Start after nystatin completed torsemide 20 mg oral tablet (20 sources) Loop Diuretic Start: 09-28-2023 End: 09-27-2024 take 1 tablet by mouth once daily torsemide (Demadex) 20 MG tablet Take 1 tablet (20 mg) by mouth daily. 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, bilateral] Onset: 1 Resolved: 4 Chronic Diabetes mellitus without complication (3 sources) Type 1 diabetes mellitus without complication; Translations: [Type 1 diabetes mellitus without complications] Onset: 5 Chronic Disorders of lipid metabolism (20 sources) Pure hypercholesterolemia; Translations: [Pure hypercholesterolemia, unspecified] Onset: 1 Chronic E Codes: Fall (4 sources) Fall; Translations: [Unspecified fall, initial encounter] 05-27-2023 Episodic Essential hypertension (20 sources) Essential hypertension; Translations: [Essential (primary) hypertension] Onset: 5 Chronic Gastritis and duodenitis (4 sources) Gastritis; Translations: [Gastritis, unspecified, without bleeding] 11-08-2021 Episodic Inflammatory diseases of female pelvic organs (2 sources) Gardnerella vaginitis; Translations: [Acute vaginitis] 05-31-2023 Episodic Malaise and fatigue (4 sources) Physical deconditioning; Translations: [Other malaise] 04-29-2024 Episodic Menopausal disorders (8 sources) Postmenopausal bleeding; Translations: [Postmenopausal bleeding] Onset: 5 05-29-2024 Chronic Mood disorders (20 sources) Depressive disorder; Translations: [Depression] Onset: 6 11-16-2015 Chronic Mood disorders (2 sources) Mood disorders; Translations: [Depression, unspecified] Onset: 4 Mycoses (4 sources) Candidiasis of the esophagus; Translations: [Candidal esophagitis] 11-08-2021 Episodic Nonspecific chest pain (6 sources) Chest pain; Translations: [Chest pain, unspecified] Episodic Nutritional deficiencies (20 sources) Vitamin D deficiency; Translations: [Vitamin D deficiency, unspecified] Onset: 3 10-12-2022 Chronic Open wounds of extremities (4 sources) Laceration without foreign body of right upper arm, initial encounter; Translations: [Skin tear of right upper extremity] 05-27-2023 Episodic Other bone disease and musculoskeletal deformities (2 sources) Disorder of skeletal system; Translations: [Disorder of bone, unspecified] Episodic Other connective tissue disease (3 sources) Swelling of lower limb; Translations: [Other specified soft tissue disorders] 05-30-2023 Episodic Other connective tissue disease (3 sources) Other symptoms and signs involving the musculoskeletal system; Translations: [Other musculoskeletal symptoms referable to limbs] 09-29-2023 Episodic Other diseases of veins and lymphatics (8 sources) Lymphedema; Translations: [Lymphedema, not elsewhere classified] 09-28-2023 Chronic Other diseases of veins and lymphatics (3 sources) Lymphedema, not elsewhere classified; 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] Onset: 4 Chronic Other diseases of veins and lymphatics (7 sources) Vascular insufficiency; Translations: [Venous insufficiency (chronic) (peripheral)] 06-20-2024 Episodic Other female genital disorders (3 sources) Vaginal discharge; Translations: [Other specified noninflammatory disorders of vagina] 05-29-2024 Episodic Other female genital disorders (2 sources) Other specified noninflammatory disorders of vagina; Translations: [Other specified noninflammatory disorders of vagina] Onset: Episodic Other fractures (4 sources) Closed fracture of coccyx; Translations: [Fracture of coccyx, initial encounter for closed fracture] 05-27-2023 Episodic Other fractures (1 source) Closed fracture of vertebral column; Translations: [Unspecified fracture of sacrum, subsequent encounter for fracture with routine healing] 05-31-2023 Episodic Other gastrointestinal disorders (4 sources) Altered bowel function; Translations: [Other specified symptoms and signs involving the digestive system and abdomen] 05-10-2022 Episodic Other injuries and conditions due to external causes (4 sources) Closed injury of head; Translations: [Unspecified injury of head, initial encounter] 05-27-2023 Episodic Other lower respiratory disease (3 sources) Decreased breath sounds; Translations: [Other abnormalities of breathing] 05-31-2023 Episodic Other lower respiratory disease (1 source) Dyspnea; Translations: [Dyspnea, unspecified] 07-12-2023 Episodic Other nervous system disorders (1 source) Anesthesia of skin; Translations: [Anesthesia of skin] Episodic Other nervous system disorders (7 sources) Ataxia; Translations: [Ataxia, unspecified] 04-29-2024 Episodic Other screening for suspected conditions (not mental disorders or infectious disease) (15 sources) Patient encounter status; Translations: [Encounter for screening for malignant neoplasm of colon] Onset: 5 10-07-2021 Episodic Other skin disorders (4 sources) Finding of color of limb; Translations: [Disorder of pigmentation, unspecified] 12-28-2023 Episodic Peripheral and visceral atherosclerosis (1 source) Peripheral vascular disease, unspecified; Translations: [Peripheral vascular disease, unspecified] Onset: Chronic Residual codes; unclassified (2 sources) Amnesia; Translations: [Other amnesia] 10-12-2022 Episodic Residual codes; unclassified (2 sources) Sleep disorder; Translations: [Sleep disorder, unspecified] 10-12-2022 Episodic Residual codes; unclassified (3 sources) Current drinker; Translations: [Other specified health status] 07-20-2023 Episodic Residual codes; unclassified (7 sources) Edema of lower extremity; Translations: [Localized edema] 06-20-2024 Episodic Superficial injury; contusion (1 source) Abrasion of upper limb; Translations: [Abrasion of unspecified upper arm, subsequent encounter] 05-31-2023 Episodic Unclassified (6 sources) Colonoscopy planned; Translations: [Colonoscopy planned] Past or Other Problems Problem Classification Problem Date Documented Da te Episodic/Chronic Abdominal pain (5 sources) Left lower quadrant pain; Translations: [Left lower quadrant pain] Onset: 09-01-2023 07-20-2023 Episodic Administrative/social admission (20 sources) Caregiver role strain; Translations: [Dependent relative needing care at home] Onset: 11-16-2022 Resolved: 07-12-2023 10-12-2022 Episodic Attention-deficit, conduct, and disruptive behavior disorders (1 source) Compulsive behavior; Translations: [Obsessive-compulsiv e behavior] Episodic Cancer of breast (20 sources) History of malignant neoplasm of breast; Translations: [Personal history of malignant neoplasm of breast] Onset: 01-20-2005 01-27-2015 Episodic Diabetes mellitus without complication (2 sources) Diabetes mellitus without complication 06-19-2024 Fluid and electrolyte disorders (16 sources) Hyponatremia; Translations: [Hypo-osmolality and hyponatremia] Onset: 02-24-2022 Resolved: 06-19-2024 Episodic Other aftercare (10 sources) Long-term current use of insulin; Translations: [technician terminal and repeater (current) use of insulin] Onset: 11-14-2011 Resolved: 06-13-2012 06-13-2012 Episodic Other bone disease and musculoskeletal deformities (20 sources) Osteopenia; Translations: [Other specified disorders of bone density and structure, multiple sites] Onset: 06-14-2010 Episodic Other diseases of veins and lymphatics (11 sources) Peripheral venous insufficiency; Translations: [Venous insufficiency (chronic) (peripheral)] Onset: 06-16-2023 06-16-2023 Episodic Other female genital disorders (20 sources) Stenosis of vagina; Translations: [Stricture and atresia of vagina] Onset: 01-31-2017 01-31-2017 Episodic Other nervous system disorders (19 sources) Impairment of balance; Translations: [Other abnormalities of gait and mobility] Onset: 09-14-2020 09-14-2020 Episodic Other nervous system disorders (2 sources) Ataxia, unspecified; Translations: [Ataxia, unspecified] Onset: 04-29-2024 Episodic Other skin disorders (20 sources) Dry skin dermatitis; Translations: [Xerosis cutis] Onset: 07-04-2022 Resolved: 07-12-2023 Episodic Residual codes; unclassified (20 sources) Dependent edema; Translations: [Edema, unspecified] Onset: 05-02-2023 Resolved: 07-20-2023 05-02-2023 Episodic Residual codes; unclassified (20 sources) Peripheral edema; Translations: [Localized edema] Onset: 07-20-2023 07-20-2023 Episodic Residual codes; unclassified (3 sources) Localized edema; Translations: [Edema of skin] Onset: 07-20-2023 Episodic Residual codes; unclassified (2 sources) Other specified health status; Translations: [Other specified health status] Onset: 09-01-2023 Episodic Unclassified (2 sources) Leg weakness, bilateral 04-29-2024 Results Test Name Value Interpretation Reference Range Facility Endocrinology Visit Reporton 09-11-2024 Endocrinology Visit Report [facility] [address] [place] [address] OFFICE VISIT Date of Service: 09/11/24 MR#: [id number] Acct: [id number] Name: FRANKY VILLANUEVA Rep #: [id number] : 1955 Provider: STARLA roberto Age/Sex: 69/F [place] [facility] [place]: Signed Intake Vital Signs 06/20/24 13:43 09/11/24 08:21 Height 5 ft 5 in 5 ft 5 in Weight: 135 lb 4 oz 129 lb BMI 22.5 21.4 BP 136/66 H 145/67 H Blood Pressure Location Lt brachial Lt brachial Position Sitting Sitting Pulse 79 74 Pulse Source Monitor Monitor Pulse Oximetry (%) 98 99 Oxygen Delivery Method room air room air Intake Visit Reasons: 3 M FU Chief Complaint: f/u diabetes Advertising Space Clerk Required: No Accompanied by: Self Is patient in pain?: No Allergies No Known Allergies Allergy (Verified 09/11/24 08:21) Medications ???Medication ???Instructions ???Recorded ???Confirmed ???Type insulin lispro 100 unit/mL 8 unit subcut TID SLIDING SCALE 09/11/24 History subcutaneous pen (Humalog KwikPen (U-100) Insulin) blood-glucose sensor (FreeStyle #2 ea 06/20/24 09/11/24 Rx Yamil 3 Plus Sensor device) blood-glucose,roll slicing machine tender, cont #1 ea 06/20/24 09/11/24 Rx (FreeStyle Yamil 3 [place]) cholecalciferol (vitamin D3) 25 25 mcg PO QDAY 06/20/24 09/11/24 H istory mcg (1,000 unit) capsule insulin glargine 100 unit/mL (3 13 unit subcut QPM 06/20/24 History mL) subcutaneous pen (Lantus Solostar U-100 Insulin) multivitamin 1 tab PO QAM 06/20/24 09/11/24 His tory atorvastatin 10 mg tablet 10 mg PO DAILY #90 tabs 07/03/24 0 09/11/24 Rx lisinopril 40 mg tablet 40 mg PO DAILY #90 tabs 07/03/24 0 09/11/24 Rx Have you fallen in the past year?: No PFSH Medical History Wears glasses Cancer Insulin dependent diabetes mellitus High cholesterol Easy bruising Dietary restriction Non-smoker History of stress test Hypertension Alcohol use Depression Unsteadiness Right carotid bruit Anxiety Change in bowel movement Diabetic retinopathy Diabetic neuropathy associated with type 1 diabetes mellitus Vaginal stenosis Surgical History History of cardiac catheterization Hx of colonoscopy S/P lumpectomy of breast Social History Smoking Status: Never smoker alcohol intake: current alcohol intake frequency: 3 or more drinks per day Alcohol type: wine substance use type: does not use what type of physical activity do you participate in: none HPI HPI Chief Complaint: f/u diabetes Details: FRANKY VILLANUEVA, is a 69 F who presents to the office today for evaluation and management of diabetes. A1C today is 8.8%, improved from 06/20/24 at 9.3%. She has lost 6 lbs since that time. She is taking basal/bolus. At her initial appt to establish care she was placed on a CGM. She has struggled with management of device. She has a sensor on currently that stopped over a week ago. She is not carrying her CGM reader with her, she leaves it plugged into outlet in her kitchen at all times. She denies any significant episode of hypoglycemia that has required assistance from others. BP borderline controlled. Currently taking lisinopril 40 mg once daily. She has not taken her medication yet today. She takes a daily statin. At her initial appt she complained of significant swelling and pain to bilateral lower extremities. She was instructed at that time to elevate her feet at home as she was sleeping in a chair with feet in dependent position and wear compression hose. She has done neither of these things. She appears unkempt, she lives alone and is afraid of falling, she is not regularly bathing herself. Denies any acute concerns. ROS Const Constitutional: Positive for other (swelling to bilateral lower extremities); No fatigue, weakness or weight change Cardio Cardiology: No chest pain at rest, chest pain with exertion or shortness of breath Musc Musculoskeletal: No numbness Neuro Neurology: No weakness or numbness Skin Skin: No wounds Endo Endocrine: No fatigue or weight change Exam Const General: cooperative, comfortable, no acute distress and ill appearing chronically Nutritional Appearance: average body habitus Orientation: alert, awake and oriented x3 HENMT Head: normal to inspection Ears: hearing grossly normal bilaterally Nose: external nose normal Face and sinus: normal facial exam Eyes General: appearance normal, both eyes and all related structures Alignment and Position: alignment normal Sclera: sclerae normal Neck Neck: normal visual inspection Chest Chest palpation inspecti (more content not included)... Normal [facility] 36on 08-16-2024 36 Patient called requesting results of recent lab results. Provided patient with results per note from Dr. Garner as follows: Your vaginal swab was negative for yeast and Gardnerella, bacterial vaginosis. Patient understands results and declined scheduling a follow-up visit at this time. Normal [facility] Office Visiton 08-14-2024 Follow-up visit [id number] Franky Villanueva 1955 F Date Provider Department Center 08/14/2024 [id number] GARNER [facility] None Family History Problem Relation Age of Onset Other Mother Comments: in 90s Coronary artery disease Father Comments: acute DC, at age 94 No Known Problems Sister Parkinsonism Brother 75 Breast cancer Mother's Sister Family Status - Relation Status Age at Mother Father Sister Alive Brother Alive Mother's Sister Level of Service:82905 MO OFFICE/OUTPATIENT ESTABLISHED [facility] 10 MIN Reason for Visit and Comments: Vaginal Discharge [984339] - Vaginal odor and discharge Normal [facility] Progress Noteon 08-14-2024 Progress Note Chief Complaint Patient presents with Vaginal Discharge Vaginal odor and discharge HPI: The patient has a complaint of a vaginal discharge. It has been going on for over a year. It is a light brown color. She has DM and recent hgb A1C is 9.1. She has had yeast in the past but denies any itching with this. We did an US last month due to the brown color of the discharge to make sure it wasn't PMB. US showed her endometrial stripe was only 2.6 mm making hyperplasia very unlikely. Patient is distressed about the discharge History: OB History Para Term AB Living 0 0 0 0 0 0 SAB IAB Ectopic Multiple Live Births 0 0 0 0 0 Medical History[1] Surgical History[2] Family History[3] Allergies[4] Current Medications[5] Physical Exam: BP 124/68 Ht 5' 5 (1.651 m) Wt 133 lb (60.3 kg) BMI 22.13 kg/m? Physical Exam Constitutional: She is oriented to person, place, and time. Genitourinary: External genitalia: There is no rash or lesion on the right labia. There is no rash or lesion on the left labia. Small amount of off white caking in between labia anteriorly- possible yeast? Urethral Meatus: Normal in appearance. Urerthra: Nontender. Bladder: Nontender. Vagina: atrophic and narrow introitus. No discharge noted in vaginal vault, no fissures palpated or seen, though both exams are limited secondary to the patient's discomfort with exam. Cervix: No lesions or friability. Uterus: non tender Anus and Perineum: Normal in appearance. No lesions. Skin: Skin is warm and dry. Assessment and Plan: Franky was seen today for vaginal discharge. Diagnoses and all orders for this visit: Vaginal discharge (Primary) - Sureswab(R) Advanced Vaginitis, TMA ([facility]) Exam reveals no obvious source for discharge, patient requesting repeat swab today to check for BV and yeast. Could still be postmenopausal bleeding, sometimes can have spotting even if lining is thin. Just because hyperplasia risk is low, doesn't mean the brown tinge isn't from spotting. Prisca Garner M.D. 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 Burrell Essential hypertension 2009 nml ECHO 2023 H/O colonoscopy 09/2021 Dr. Олег boone ds, due 2031 History of herpes genitalis History of right breast cancer 2004 s/p lumpectomy Hx antineoplastic chemo Hypercholesterolemia Osteopenia 02/2022 at [facility], FRAX 1.7%/14% Personal history of irradiation Type 1 diabetes mellitus (HCC) 1974 [facility] [2] Past Surgical History: Procedure Laterality Date BREAST LUMPECTOMY Right 2004 [place] Breast COLONOSCOPY 09/2021 Dr. Олег boone ds- due 2031 COLONOSCOPY 2006 ESOPHAGOGASTRODUODENOSC OPY 09/2021 Esophageal candidiasis [3] Family History Problem Relation Name Age of Onset Other Mother in 90s Coronary artery disease Father acute DC, at age 94 No Known Problems Sister Parkinsonism Brother 75 Breast cancer Mother's Sister [4] No Known Allergies [5] Current Outpatient Medications: Blood Glucose Monitoring Suppl (FreeStyle Lite) device, Inject 1 each under the skin 3 times daily. Use as instructed E11.9, Disp: 1 each, Rfl: 0 cholecalciferol (Vitamin D-3) 50 MCG (1999 UT) capsule, Take 2,000 Units by mouth in the morning., Disp: , Rfl: FREESTYLE LITE test strip, 1 each by Other route 3 times daily. Use as instructed E11.9, Disp: 200 each, Rfl: 1 indapamide (Lozol) 2.5 MG tablet, Take 1 tablet (2.5 mg) by mouth every morning., Disp: 30 tablet, Rfl: 11 insulin glargine (Lantus SoloStar) 100 UNIT/ML pen, Inject 11 Units under the skin., Disp: , Rfl: insulin lispro (HumaLOG) 100 UNIT/ML injection, Inject subcutaneously 10 units three times daily at meals., Disp: , Rfl: Multiple Vitamin (MULTIVITAMIN ADULT PO), Take by mouth., Disp: , Rfl: Sure Comfort Pen [place] 31G X 8 MM [facility] [place], , Disp: , Rfl: triamcinolone (Kenalog) 0.1 % cream, Apply topically 2 times daily., Disp: , Rfl: atorvastatin (Lipitor) 10 MG tablet, Take 1 tablet (10 mg) by mouth daily for 90 doses., Disp: 90 tablet, Rfl: 1 lisinopril 40 MG tablet, Take 1 tablet (40 mg) by mouth daily for 90 doses., Disp: 90 tablet, Rfl: 1 venlafaxine XR (Effexor XR) 37.5 MG 24 hr capsule, Take 1 capsule (37.5 mg) by mouth daily. Do not crush or chew., Disp: 30 capsule, Rfl: [address] [facility] Progress Note Licensed Appraiser was offere d to 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 Patient declined offer of wellness specialist [facility] 36on 07-08-2024 36 S: Patient spoke wit h [facility] nurse regarding vaginal odor and discharge. B: Onset of symptoms since worse the last over year. A: Having an increased discharge odor and dark discharge, had an ultrasound and everything was negative. R: Appointment scheduled. Would like to keep the same physician and location, scheduled at the earliest available , address given to the patient, instructed to bring photo ID, insurance info and medication list to the appointment. Patient understands care advice. No further needs at this time. Patient instructed to call back with new or worsening symptoms. Reason for Disposition MODERATE-SEVERE itching (i.e., interferes with school, work, or sleep) Protocols used: Vaginal Koektbyc-GTVBS-TD [facility] 36 Name of caller: Cyndee Contact phone number: [phone] Relationship to Patient: Hillary [facility] Occupational Therapy Provider: Dr. Gómez Practice: [facility] Chief Complaint/Reason for Call: Patient cancelled last visit for discharge and the visit will be 07/09/24 now. States as long as agreeable no need to return call. FYI Best time of day caller can be reached: any Patient advised that office/PCP has 24-48 business hours to return their call: N/A Normal [facility] Office Visit Reporton 2024 Office Visit Report [facility] [address] [place] [address] OFFICE VISIT Date of Service: 07/03/24 MR#: [id number] Acct: [id number] Patient: FRANKY VILLANUEVA Rep #: [id number] : 1955 Provider: STARLA roberto Age/Sex: 69/F [place] [facility] [place]: Signed Intake Vital Signs 06/20/24 13:43 Height 5 ft 5 in Weight: 135 lb 4 oz BMI 22.5 BP 136/66 H Blood Pressure Location Lt brachial Position Sitting Pulse 79 Pulse Source Monitor Pulse Oximetry (%) 98 Oxygen Delivery Method room air Intake Visit Reasons: CGM Help Chief Complaint: establish care- diabetes Allergies No Known Allergies Allergy (Verified 06/20/24 13:52) Have you fallen in the past year?: No Nursing Note Pt came in to receive education on the Yamil 3 Plus sensor. Pt was unaware that the reader needs to be charged. Showed pt how to charge the reader. Pt had questions about other items on the reader. I explained that these options are more for the provider and that she does not need to worry about them. Explained the hime button/power button to the pt and when to use it. Clinical Quality Measures Falls Risk Screening/Assistive Devices Have you fallen in the past year?: No 07/22/24 1258 Date Willow Miller Signature: Date (if applicable) CC: Normal [facility] PELVIS TRANSVAGINALon US PELVIS TRANSVAGINAL ------ - Gynecological Report (Signed Final 06/27/2024 07:06 am) - PATIENT INFO: ID #: [id number] : [birth year] (69 yrs)(F) Name: FRANKY VILLANUEVA Visit Date: 06/26/2024 09:43 am - PERFORMED BY: Attending: Loco Ramirez MD Performed By: Kuldeep Pope RDMS Referred By: PRISCA GARNER Location: [facility] [place] [facility] - SERVICE(S) PROVIDED: Optometric Tech Transvaginal 84137 - INDICATIONS: Postmenopausal bleeding N95.0 - TECHNIQUE/SCAN QUALITY: Technique: Transvaginal and Transabdominal Approach - HISTORY: Age: 69 Menses: Postmenopausal - HX COMMENTS: PMB. Non latex cover used. - UTERUS: Uterus: Visualized Position: Anteverted Size (cm) L: 5.39 W: 3.31 H: 2.68 Description: The uterine contour is smooth, but the echogenicity is mottled. This appearance may be seen with diffuse fibroid disease or adenomyosis. - ENDOMETRIUM: Thickness(mm): 2.61 - CERVIX: Normal appearance - CUL-DE-SAC: No free fluid was visualized - RIGHT OVARY: Status: Not visualized Comment: The right ovary was not visualized transvaginally or transabdominally secondary to prominent bowel and/or patient body habitus. - LEFT OVARY: Status: Not visualized Comment: The left ovary was not visualized transvaginally or transabdominally secondary to prominent bowel and/or patient body habitus. - - Loco Ramirez MD Electronically Signed Final Report 06/27/2024 07:06 am - IMPRESSION: ? Mottled echogenicity of the uterus with no discrete masses identified. This appearance may be seen with diffuse fibroid disease or adenomyosis. Multiple calcifications are seen mostly around the periphery of the uterus. This may represent calcified blood vessels vs. fibroids. The endometrium measures 2.6 mm. The ovaries could not be visualized transvaginally or transabdominally secondary to prominent bowel and/or patient body habitus. No pelvic mass or free fluid is identified. Patient is scheduled to see Dr. Prisca Garner following ultrasound. *Ultrasound cannot detect all pelvic or FISHER HOOP NET abnormalities and normal findings cannot guarantee the absence of a problem.* Normal [facility] Office Visiton 06-26-2024 Follow-up visit [id number] Franky Villanueva 1955 F Date Provider Department Center 06/26/2024 [id number] GARNER [facility] None Family History Problem Relation Age of Onset Other Mother Comments: in 90s Coronary artery disease Father Comments: acute DC, at age 94 No Known Problems Sister Parkinsonism Brother 75 Breast cancer Mother's Sister Family Status - Relation Status Age at Mother Father Sister Alive Brother Alive Mother's Sister Level of Service:41987 [place] OFFICE/OUTPATIENT ESTABLISHED [facility] 10 MIN Reason for Visit and Comments: Follow-up [315172] [facility] Progress Noteon 06-26-2024 Progress Note Chief Complaint Patient presents with Follow-up HPI: Patient is here today to discuss ultrasound. 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 Burrell Essential hypertension 2009 nml ECHO 2023 H/O colonoscopy 09/2021 Dr. Олег jean baptiste, due 2031 History of herpes genitalis History of right breast cancer 2004 s/p lumpectomy Hx antineoplastic chemo Hypercholesterolemia Osteopenia 02/2022 at [facility], FRAX 1.7%/14% Personal history of [facility] Past Surgical History: Procedure Laterality Date BREAST LUMPECTOMY Right 2005 [place] Breast COLONOSCOPY 09/2021 Friend- divert ds- due 2031 COLONOSCOPY 2006 ESOPHAGOGASTRODUODENOSC OPY 09/2021 Esophageal candidiasis Family History Problem Relation Name Age of Onset Other Mother in 90s Coronary artery disease Father acute DC, at age 94 No Known Problems Sister Parkinsonism Brother 75 Breast cancer Mother's Sister Allergies: No Known Allergies Medications: Current Outpatient Medications: atorvastatin (Lipitor) 10 MG tablet, Take 1 tablet (10 mg) by mouth daily for 90 doses., Disp: 90 tablet, Rfl: 1 Blood Glucose Monitoring Suppl (FreeStyle Lite) device, Inject 1 each under the skin 3 times daily. Use as instructed E11.9, Disp: 1 each, Rfl: 0 cholecalciferol (Vitamin D-3) 50 MCG (2000 UT) capsule, Take 2,000 Units by mouth in the morning., Disp: , Rfl: FREESTYLE LITE test strip, 1 each by Other route 3 times daily. Use as instructed E11.9, Disp: 200 each, Rfl: 1 indapamide (Lozol) 2.5 MG tablet, Take 1 tablet (2.5 mg) by mouth every morning., Disp: 30 tablet, Rfl: 11 insulin glargine (Lantus SoloStar) 100 UNIT/ML pen, Inject 11 Units under the skin., Disp: , Rfl: insulin lispro (HumaLOG) 100 UNIT/ML injection, Inject subcutaneously 10 units three times daily at meals., Disp: , Rfl: lisinopril 40 MG tablet, Take 1 tablet (40 mg) by mouth daily for 90 doses., Disp: 90 tablet, Rfl: 1 Multiple Vitamin (MULTIVITAMIN ADULT PO), Take by mouth., Disp: , Rfl: Sure Comfort Pen [place] 31G X 8 MM [facility] [place], , Disp: , Rfl: triamcinolone (Kenalog) 0.1 % cream, Apply topically 2 times daily., Disp: , Rfl: glucose blood (FREESTYLE LITE) test strip, TEST BLOOD SUGARS 6 TIMES DAILY; E 10.29, IDDM,, Disp: , Rfl: venlafaxine XR (Effexor XR) 37.5 MG 24 hr capsule, Take 1 capsule (37.5 mg) by mouth daily. Do not crush or chew., Disp: 30 capsule, Rfl: 1 Assessment and Plan: Franky was seen today for follow-up. Diagnoses and all orders for this visit: PMB (postmenopausal bleeding) (Primary) Stripe thin, unlikely hyperplasia. No EMB indicated at this time. Patient reassured [facility] 36on 06-24-2024 36 Name of caller: Cyndee Contact phone number: [phone] Relationship to Patient: [facility] Occupational Therapy Provider: Dr. Gómez Practice: [facility] Chief Complaint/Reason for Call: Cyndee informing she will be extending one more visit for patient next week. States patient has had shower grab bars installed. States as long as agreeable no need to return call. Please advise. Best time of day caller can be reached: any Patient advised that office/PCP has 24-48 business hours to return their call: N/A 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 - Blood-Glucose Meter,Continuous (DEXCOM G7 AIRPLANE NAVIGATOR) misc For continuous glucose monitoring. - indapamide (LOZOL) 2.5 mg tablet Take 1 tablet by mouth once daily. - insulin lispro (HUMALOG KWIKPEN INSULIN) 100 unit/mL Inject 5 Units subcutaneously three times a day before meals. CORRECTION DOSES 1:50 OVER 150, UP TO 30 UNITS DAILY - insulin glargine (LANTUS SOLOSTAR U-100 INSULIN) 100 unit/mL (3 mL) Inject 14 Units subcutaneously daily at bedtime. - blood sugar diagnostic (FREESTYLE LITE STRIPS) test strip TEST BLOOD SUGARS 6 TIMES DAILY; E 10.29, IDDM, - insulin needles, DISPOSABLE, (SURE COMFORT PEN NEEDLE) 31 gauge x 5/16 USE 4 PEN NEEDLES DAILY, FOR INSULIN PEN USE - lisinopril (ZESTRIL) 40 mg tablet Take 1 tablet by mouth once daily. - atorvastatin (LIPITOR) 10 mg tablet take 1 tablet daily - Cholecalciferol, Vitamin D3, (VITAMIN D-3) 50 mcg (2,000 unit) cap Take 1 capsule by mouth once daily. - furosemide (LASIX) 20 mg tablet Take 1 tablet by mouth once daily. - FLUoxetine HCl 20 mg tablet Take 1 tablet by mouth once daily. - Blood-Glucose Meter (FREESTYLE LITE METER) monitoring kit Use to glucose as directed. 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 [place] [address] OFFICE VISIT Date of Service: 06/20/24 MR#: [id number] Acct: [id number] Name: FRANKY VILLANUEVA Rep #: [id number] : 1955 Provider: STARLA roberto Age/Sex: 69/F Location[facility] Status: Signed Intake Vital Signs 05/27/23 12:50 06/20/24 13:43 Height 5 ft 5 in 5 ft 5 in Weight: 135 lb 4 oz BMI 22.5 BP 136/66 H Blood Pressure Location Lt brachial Position Sitting Pulse 79 Pulse Source Monitor Pulse Oximetry (%) 98 Oxygen Delivery Method room air Intake Visit Reasons: Diabetes Chief Complaint: establish care- diabetes Is patient in pain?: No Allergies No Known Allergies Allergy (Verified 06/20/24 13:52) Medications ???Medication ???Instructions ???Recorded ???Confirmed ???Type insulin lispro 100 unit/mL 8 unit subcut TID SLIDING SCALE 06/20/24 History subcutaneous pen (Humalog KwikPen (U-100) Insulin) lisinopril 40 mg tablet 40 mg PO DAILY 06/09/21 06/20/24 H istory atorvastatin 10 mg tablet 10 mg PO DAILY 07/15/21 06/20/24 H istory blood-glucose meter,continuous #1 ea 06/20/24 06/20/24 Rx (FreeStyle Yamil 3 Kent) blood-glucose sensor (FreeStyle #2 ea 06/20/24 06/20/24 Rx Yamil 3 Plus Sensor device) cholecalciferol (vitamin D3) 25 25 mcg PO QDAY 06/20/24 06/20/24 H istory mcg (1,000 unit) capsule insulin glargine 100 unit/mL (3 13 unit subcut QPM 06/20/24 History mL) subcutaneous pen (Lantus Solostar U-100 Insulin) multivitamin 1 tab PO QAM 06/20/24 06/20/24 His tory Have you fallen in the past year?: Yes PFSH Medical History (Updated 06/20/24 @ 17:00 by Willow Barragan NP-C) Wears glasses Cancer Insulin dependent diabetes mellitus High cholesterol Easy bruising Dietary restriction Non-smoker History of stress test Hypertension Alcohol use Depression Unsteadiness Right carotid bruit Anxiety Change in bowel movement Diabetic retinopathy Diabetic neuropathy associated with type 1 diabetes mellitus Vaginal stenosis Surgical History History of cardiac catheterization Hx of colonoscopy S/P lumpectomy of breast Social History Smoking Status: Never smoker alcohol intake: current alcohol intake frequency: 3 or more drinks per day Alcohol type: wine substance use type: does not use what type of physical activity do you participate in: none HPI HPI Chief Complaint: establish care- diabetes Details: FRANKY VILLANUEVA, is a 69 F who presents to the office today for evaluation and management of diabetes. Referred by PCP for uncontrolled blood sugars. Diagnosed at the age of 19 after noting to having vaginal yeast infection, denies any known family history of diabetes. Complications include intermittent numbness/tingling to bilateral lower extremities. Eye exams are up to date and negative for retinopathy or ME. She has been in declining health over the past couple of years with increase in weakness and difficulty with balance. A1C on 03/20/24 was 9.9%, this seems to be typical for her over the past several years. Currently taking Lantus 13 u once daily and Humalog 7 +/- u TIDCM. If blood sugar is good prior to a meal, she will not take Humalog. She prefers blood sugar be 200+ prior to going to bed, otherwise she states she will typically crash. She is checking her blood sugars with finger stick. BP controlled. Currently taking lisinopril 40 mg once daily. She is taking a daily statin. Labs recently updated with the exception of lipid panel. Labs largely unremarkable. She has noted increase in swelling to bilateral lower extremities. She takes indapamide daily without much improvement in symptoms. She has seen vascular last fall and was instructed to utilize compression hose and elevate BLE. She has not done so. Symptoms were not thought to be vascular in nature and potentially had components related to lymphedema. She sleeps in a chair, not reclined. Her diet contains a fair amount of sodium. Swelling and worsening in ambulation/balance has significantly impacted her quality of life over the last year+. ROS Const Constitutional: No fatigue or weight change ENT ENT: No dizziness/vertigo Cardio Cardiology: No chest pain at rest, chest pain with exertion, shortness of breath or palpitations Musc Musculoskeletal: Positive for other (swelling to bilateral lower extremities) Resp Respiratory: No shortness of breath Skin Skin: Positive for dry skin; No wounds Endo Endocrine: No fatigue or weight change Exam Const General: cooperative, healthy appearing, comfortable and no acute distress (more content not included)... Normal [facility] - Hematology and Cell countsOrdered By: Willow Barragan on 06-20-2024 HbA1c (Bld) [Mass fraction] 9.3 % High 4.2-6.3 [facility] CNOVon 06-19-2024 CNOV Office Visit (ENDMED ) FRANKY VILLANUEVA ([id number]) 1955 [facility] Date Time Provider Department 06/19/24 10:20 AM MICHAEL RODRIGUEZ During your visit today, we recorded the following information about you: Pulse Blood pressure Weight 71/minute 126/64 61.1 kg Michael Rodriguez MD 06/19/2024 12:56 PM Signed Follow-up 69 year-old female, patient of Dr. Norberto Gómez, with type 1 diabetes mellitus since 1974, osteopenia, hypertension, hyperlipidemia. She continues multiple daily insulin injections (MDII): Humalog KwikPen with Lantus SoloStar at bedtime. She continues to carbohydrate count (1:10), and use correction ratio of 1:50 for hyperglycemic excursions. Blood sugars remain labile. She is checking blood sugars, mostly before meals, using an AccuChek Alvina meter . She did not bring blood sugars in for review today. Medication list, insulin doses reviewed with the patient, reconciled. Stable background diabetic retinopathy on her last diabetic eye exam in 07/2023. Non-smoker, occasional alcohol use. NKDA. Usual adult height was 65.25. She stopped taking Fosamax weekly, had been on for over 5 years. No fractures. Had a flu shot this past (2023) fall. No recent hypoglycemia in the middle of the night. No interval height loss or fractures. Fasting readings are being checked. Not checking after meals as much. Has had COVID vaccination. Current Outpatient Medications on File Prior to Visit Medication Sig insulin lispro (HUMALOG KWIKPEN INSULIN) 100 unit/mL Inject 5 Units subcutaneously three times a day before meals. CORRECTION DOSES 1:50 OVER 150, UP TO 30 UNITS DAILY insulin glargine (LANTUS SOLOSTAR U-100 INSULIN) 100 unit/mL (3 mL) Inject 13 Units subcutaneously daily at bedtime. blood sugar diagnostic (FREESTYLE LITE STRIPS) test strip TEST BLOOD SUGARS 6 TIMES DAILY; E 10.29, IDDM, insulin needles, DISPOSABLE, (SURE COMFORT PEN NEEDLE) 31 gauge x 5/16 USE 4 PEN NEEDLES DAILY, FOR INSULIN PEN USE lisinopril (ZESTRIL) 40 mg tablet Take 1 tablet by mouth once daily. atorvastatin (LIPITOR) 10 mg tablet take 1 tablet daily Cholecalciferol, Vitamin D3, (VITAMIN D-3) 50 mcg (2,000 unit) cap Take 1 capsule by mouth once daily. furosemide (LASIX) 20 mg tablet Take 1 tablet by mouth once daily. FLUoxetine HCl 20 mg tablet Take 1 tablet by mouth once daily. Blood-Glucose Meter (FREESTYLE LITE METER) monitoring kit Use to glucose as directed. Indapamide 2.5 mg every day Review of patient's allergies indicates: No Known Allergies Review of systems: Patient notes no weight loss, fever, fatigue, weakness, change in balance or sensation, visual problems, hearing changes, dizziness, trouble swallowing, nasal difficulties, shortness of breath, chest pain, change in exertional tolerance, foot or leg problems, skin lesions, abdominal pain, diarrhea, constipation, urinary problems, incontinence, back pain, joint pains, anxiety, depression, insomnia, menstrual difficulties, breast lesions/pain/mass. Remainder of review of systems was unremarkable. BP 159/69 (BP Position: Sitting) Pulse 71 Wt 61.1 kg (134 lb 11.2 oz) SpO2 99% BMI 22.42 kg/m? Weight up 5 pounds since 05/2023. General appearance: Well-appearing female, alert, in no acute distress, well-hydrated, well nourished. BP elevated. Repeat BP 124/64 Skin: Skin color, texture, turgor normal, no suspicious rashes or lesions Head: normocephalic, no masses, lesions, tenderness or abnormalities Eyes: Anicteric sclera. Pupils are equally round. Extraocular movements are intact. Ears: not examined Nose/Sinuses: Nares normal. No drainage or sinus tenderness. Oropharynx: Lips, mucosa, and tongue normal, teeth and gums not examined. Neck: Supple, no adenopathy; no visible thyroid enlargement. Lungs: Breathing unlabored. Heart: RRR. No ectopy Abdomen: deferred Musculoskeletal: Spine range of motion not tested. Muscular strength intact, No joint swelling, deformity, or tenderness Neuro: Gait normal. Sensation grossly intact. 2+ edema in LE's Feet:Shoes and socks removed, No deformities, ulcers, calluses, trace DP distal pulses, and intact sensation. A1C today via Afinion was 9.1%. Labs on 04/29/2024 showed creatinine 0.76, glucose 416, normal LFTs, DEXA bone densitometry in 2012 showed T-scores as follows: lumbar 0.0, hip -0.5, femoral neck 0.0. DEXA bone densitometry in 09/2019 showed T-scores as follows: lumbar -0.6, hip -1.2, femoral neck -1.0. DEXA bone densitometry 02/2022 showed T-scores as follows: lumbar -0.7, hip -0.7, femoral neck -1.5. IMPRESSION: Type 1 diabetes mellitus with retinopathy - slightly improved control. Encouraged her to get glucose sensor. Check urine microalbumin/creatinine ratio. Retinopathy stable. Osteopenia - stable historically, repeat DXA Hypertension - good control. Hyperlipidemi (more content not included)... Normal [facility] HEMOGLOBIN A1C (POC)on 06-19 HbA1c (Bld) [Mass fraction] 9.1 % Abnormal 4.3 - 5.6 % [facility] Comment on above: Location:[facility] crystal [facility], [address] [place], [address] Point of care (POC) Hemoglobin A1c (HGBA1C) testing is intended to assess glucose control and provide a management tool for patients known to have diabetes and their healthcare providers. Target HGBA1C levels may depend on specific clinical circumstances. POC HGBA1C is not intended for use as a diagnostic or screening test; laboratory-based testing should be used for diagnostic purposes. The following information is supplemental and may not be applicable to specific diabetes management situations: The POC device picu nurse provides a normal range of 4.2% to 6.5% for the HGBA1C POC test. However, the [place] [employer] guidelines indicate that patients with HGBA1C in the range of 5.7% to 6.4% are at increased risk for development of diabetes and that intervention by lifestyle modification may be beneficial. A HGBA1C level greater than or equal to 6.5% is considered diagnostic of diabetes, pending confirmatory testing. Use of HGBA1C testing to evaluate glucose control may not be appropriate for patients with hemoglobin variants or other conditions (e.g. anemia) that alter red blood cell lifespan. Interpretation and review of laboratory results Abnormal [facility] 06-05-2024 36 Name of caller: Ken Contact phone number: [phone] Relationship to Patient: [facility] Provider: Dalia Practice: [facility] Chief Complaint/Reason for Call: Ken said the patient will be seen one more time the week of June 24 to work on bathing. The patient is having new grab bars installed next week. Ken said she doesn't need a call back if you're agreeable? Please advise Best time of day caller can be reached: any Patient advised that office/PCP has 24-48 business hours to return their call: No Normal [facility] 06-03-2024 36 Name of caller: Franky Contact phone number: [phone] Relationship to Patient: patient Provider: Pascual Practice: [facility] Chief Complaint/Reason for Call: Pt calling to ask if the after visit summary from her 05/29/24 visit can be mailed to her address on file. Please advise. Best time of day caller can be reached: Any Patient advised that office/PCP has 24-48 business hours to return their call: Normal [facility] Sureswab(R) Advanced Vaginit is, TMA ([facility])on 05-30-2024 C. glabrata RNA STUART+probe Ql (Vag fld) Not detected NOT DETECTED [facility] Comment on above: Theresa species C. albicans, C. tropicalis, C. parapsilosis, and/or C. dubliniensis can be detected, but not differentiated, in the Theresa spp. result. Theresa sp rRNA Probe Ql (Vag fld) Not detected NOT DETECTED [facility] Lactobacillus crispatus+gasseri+jense angela + Gardnerella vaginalis + Atopobium vaginae rRNA STUART+probe Ql (Vag fld) Negative NEGATIVE [facility] T. vaginalis rRNA STUART+probe Ql (Unsp spec) Not detected NOT DETECTED [facility] Office Visiton 05-29-2024 Follow-up visit [id number] Franky Villanueva 1955 F Date Provider Department Center 05/29/2024 [id number] [facility] OB None Family History Problem Relation Age of Onset Other Mother Comments: in 90s Coronary artery disease Father Comments: acute DC, at age 94 No Known Problems Sister Parkinsonism Brother 75 Breast cancer Mother's Sister Family Status - Relation Status Age at Mother Father Sister Alive Brother Alive Mother's Sister Level of Service:38237 MO INITIAL PREVENTIVE MEDICINE NEW PATIENT 64YRS&> Reason for Visit and Comments: New Patient [542] - Est. Care, annual exam,brown discharge x1 year Normal [facility] Progress Noteon 05-29-2024 Progress Note Franky Villanueva 05/29/2024 69 y.o. Primary Care Physician: Norberto Gómez DO Chief Complaint Patient presents with New Patient Est. Care, annual exam,brown discharge x1 year HPI : Franky Villanueva is a 69 y.o. female here for annual exam She is postmenopausal. She has been having a brownish discharge on and off for about a year. In the past she was told she might have Gardenella. She has a long hx of DM and has had many yeats infections in the past, does not think that is what this is. She has some odor to it, but no itch. She is not sexually active, . She had a PCP that did her breast exam and pap smears for years, but he retired and her new PCP does not do those so she is here ___ Gynecologic History: Vasomotor symptoms: no Patient is not on hormone replacement therapy Sexually Active: No Vaginal dryness: No Preventative Health Testing: Date of Last Pap Smear: 05/2021 neg Abnormal Pap Smear History: none per pt Date of Last Mammogram: neg 03/2024 (has hx of right breast cancer in 2004, had lumpectomy and has been fine since.) Date of Last Colonoscopy: 2021 Date of Last Bone Density: 02/2022 at [facility], in [facility]- osteopenia (FRAX 1.7%/14%) OB History Para Term AB Living SAB IAB Ectopic Multiple Live Births 0 Past Medical History: Diagnosis Date [facility] Breast cancer screening by mammogram 03/2024 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 Burrell Essential hypertension 2009 nml ECHO 2023 H/O colonoscopy 09/2021 Dr. Олег boone ds, due 2031 History of herpes genitalis History of right breast cancer 2004 s/p lumpectomy Hx antineoplastic chemo Hypercholesterolemia Osteopenia 02/2022 at [facility], FRAX 1.7%/14% Personal history of irradiation Type 1 diabetes mellitus (HCC) 1974 [facility] Past Surgical History: Procedure Laterality Date BREAST LUMPECTOMY Right 2004 [place] Breast COLONOSCOPY 09/2021 Dr. Олег boone ds- due 2031 COLONOSCOPY 2006 ESOPHAGOGASTRODUODENOSC OPY 09/2021 Esophageal candidiasis Family History Problem Relation Name Age of Onset Other Mother in 90s Coronary artery disease Father acute DC, at age 94 No Known Problems Sister Parkinsonism Brother 75 Breast cancer Mother's Sister MEDICATIONS: Current Outpatient Medications Medication Sig Dispense Refill Blood Glucose Monitoring Suppl (FreeStyle Lite) device Inject 1 each under the skin 3 times daily. Use as instructed E11.9 1 each 0 cholecalciferol (Vitamin D-3) 50 MCG (1999 UT) capsule Take 2,000 Units by mouth in the morning. FREESTYLE LITE test strip 1 each by Other route 3 times daily. Use as instructed E11.9 200 each 1 glucose blood (FREESTYLE LITE) test strip TEST BLOOD SUGARS 6 TIMES DAILY; E 10.29, IDDM, indapamide (Lozol) 2.5 MG tablet Take 1 tablet (2.5 mg) by mouth every morning. 30 tablet 11 insulin glargine (Lantus SoloStar) 100 UNIT/ML pen Inject 11 Units under the skin. insulin lispro (HumaLOG) 100 UNIT/ML injection Inject subcutaneously 10 units three times daily at meals. Multiple Vitamin (MULTIVITAMIN ADULT PO) Take by mouth. Sure Comfort Pen [place] 31G X 8 MM [facility] triamcinolone (Kenalog) 0.1 % cream Apply topically 2 times daily. venlafaxine XR (Effexor XR) 37.5 MG 24 hr capsule Take 1 capsule (37.5 mg) by mouth daily. Do not crush or chew. 30 capsule 1 atorvastatin (Lipitor) 10 MG tablet Take 1 tablet (10 mg) by mouth daily for 90 doses. 90 tablet 1 lisinopril 40 MG tablet Take 1 tablet (40 mg) by mouth daily for 90 doses. 90 tablet 1 No current facility-administered medications for this visit. ALLERGIES: Allergies as of 05/29/2024 (No Known Allergies) REVIEW OF SYSTEMS: CONSTIUTIONAL: No weight change or fatigue. No fever or chills. No changes in appetite. CV: No chest pain, palpitations, or syncope. RESPIRATORY: No SOB, cough, or wheezing. BREAST: No breast abnormalities or lumps. GI: No heartburn, nausea, vomiting, diarrhea, constipation, bloating or bowel changes. No blood or mucous with bowel movements or melena. : No dysuria, frequency, hesitancy, urgency, hematuria or nocturia. NEURO: No migraines, seizure hx, or weakness. DERM: No rash or itching. HEME and LYMPH : No lymphoma or abnormal bleeding history PHYSICAL EXAM: Vitals: 05/29/24 1110 BP: 135/70 Pulse: 73 Weight: 133 lb (60.3 kg) Height: 5' 5 (1.651 m) Body mass index is 22.13 kg/m?. GENERAL EXAM CONSTITUTIONAL: no acute distress CARDIOVASCULAR: no edema LUNGS: normal effort ABDOMEN:soft, non-tender, non-distended NEUROLOGICAL: no gross motor or sensory deficits noted MUSCULOSKETAL: normal gait, no cyanosis PSYCHIATRIC: normal mood and affect, A&O x3 FISHER HOOP NET EXAM: BREASTS: normal, no masses. Scar on right breast in UOQ, mildly tender to palpation on (more content not included)... [facility] 36on 05-20-2024 36 Placed call to radha nt. Two patient identifers confirmed. Was able to speak to patient. All concerns in message have been addressed. No questions at this time. Call ended [facility] 36 Name of caller: Arina Contact phone number: [phone] Relationship to Patient: Arina [facility] Provider: Dalia Practice: [facility] Chief Complaint/Reason for Call: Arina states she wanted to make provider aware of plan of care. Arina will see patient for occupational therapy once a week for one week, twice a week for two weeks and this is for training safety. Arina states it was a delay to see patient for evaluation due to her schedule being full. Arina states only advise if further questions. Best time of day caller can be reached: any Patient advised that office/PCP has 24-48 business hours to return their call: Yes [place] [address] Name of Caller: Milo corrina Contact option 2 Reason for Appointment: Rosanne states that the patient has called their office about 10 x to schedule an appointment. Rosanne states that they are missing a lot of information for the referral and has sent over a referral requirement that will need to be completed in order to schedule the patient an appointment. Please review. Office Name: [facility] 36 Name of caller: Franky Villanueva Contact phone number: [phone] Relationship to Patient: patient Provider: Dr. Gómez Practice: [facility] Chief Complaint/Reason for Call: Patient requested the referral to Endocrinology be faxed to Dr. Stallings's office, fax number [phone], I did fax the referral. FYI, thank you. Best time of day caller can be reached: Any Patient advised that office/PCP has 24-48 business hours to return their call: N/A [facility] 3605-19-2024 36 S: Patient spoke lashell RANDOLPH nurse regarding medication issue. B: DULoxetine (Cymbalta) [address] bro A: Per patient the above medication is making her drowsy and she can barely stay awake. She doesn't have any energy as well. Patient wanting to know if she should stop current medication, go back to Fluoxetine, or another option. R: Patient advised a message will be sent to the provider and the office will follow up. No further needs at this time. Reason for Disposition [1] Caller has NON-URGENT medicine question about med that PCP prescribed AND [2] triager unable to answer question Protocols used: [facility]ication [id number] 36 To Felecia to follow up 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 She stated that they occurred in front of kitchen sink. Patient stated that her sugar had crashed. No injuries reported. Best time of day caller can be reached: any Patient advised that office/PCP has 24-48 business hours to return their call: No [facility] 36 Name of caller: Franky Contact phone number: [phone] Relationship to Patient: patient Provider: Dr. Gómez Practice: [facility] Chief Complaint/Reason for Call: Franky is calling to ask if the referral to Dr. Jose Stallings in [place] can be faxed to her office at . Please advise. Best time of day caller can be reached: Any Patient advised that office/PCP has 24-48 business hours to return their call: No [facility] 2905-16-2024 29 Addended by: NORBERTO LAWLER on: 05/16/2024 11:16 AM Modules accepted: Orders [facility] Addended by: ARIANNA CARTY on: 05/16/2024 10:02 AM Modules accepted: Orders [facility] 36on 05-16-2024 36 Natasha was left a detailed message and to call the office if any questions. [facility] 36 S: [facility] clinical medical laboratory manager spoke with [facility] nurse regarding medication question B: Onset of symptoms/concern toay A: Patient needs and verbal order for Tylenol 500 MG 2 tablets TID daily. Patient has on her medication profile and has been taking it. Call Natasha [phone]. R: Informed message would be sent to provider for review. No further needs at this time. Reason for Disposition Caller has NON-URGENT medicine question about med that PCP or specialist prescribed and triager unable to answer question Protocols used: Medication Question [id number] [facility] 36 Name of caller: Franky Relationship to patient: patient Contact phone number: [phone] Speciality referral requested for: Endocrinology Diagnosis or reason for referral: diabetes Name of specialist: Dr Radha Stallings in [facility] Fax number [phone] Name of group/practice: NA Patient verified insurance covers referral: Yes Patient insurance: Med A and B Has patient seen this specialist in the past: No Estimated time/date patient last saw the specialist: na Patient is requesting a call when referral is complete. [facility] CNPNon 05-15-2024 CNPN Telephone (Contapps) FRANKY VILLANUEVA ([id number]) 1955 F [facility] Date Time Provider Department 05/15/24 MICHAEL RODRIGUEZ During your visit today, we recorded the following information about you: Aby Lockhart MA 05/15/2024 2:21 PM Signed Received office notes from [facility]. Dr. Gómez is asking for a sooner appt due to patient's current complains. Your sooner appt was given on 06/19/2024. Michael Rodriguez MD 05/16/2024 2:17 PM Signed Please tell her to increase insulin doses to the following, send in blood sugars for review in one week. Keep May appointment. The following approved medication requests have been transmitted electronically. Requested Prescriptions Signed Prescriptions Disp Refills insulin lispro (HUMALOG KWIKPEN INSULIN) 100 unit/mL 30 mL 3 Sig: Inject 5 Units subcutaneously three times a day before meals. CORRECTION DOSES 1:50 OVER 150, UP TO 30 UNITS DAILY Authorizing Provider: MICHAEL RODRIGUEZ insulin glargine (LANTUS SOLOSTAR U-100 INSULIN) 100 unit/mL (3 mL) 15 mL 3 Sig: Inject 14 Units subcutaneously daily at bedtime. Authorizing Provider: MICHAEL RODRIGUEZ MD Galdamez, Rita, MA 05/16/2024 4:13 PM Signed I left a voice message for patient to call the office for some medication changes from Dr. Rodriguez. Lorene Blackwell RN 05/17/2024 12:06 PM Signed Notified patient of Dr Rodriguez's message. Patient verbalized understanding and all questions were answered. Encounter closed. Allergies As of Date: 05/15/2024 (No Known Allergies) Date Reviewed: 06/16/2023 Reviewed by: Aby Lockhart MA - Fully Assessed Reason for Visit: Received Office Notes [Other] Cmt: [facility] Diagnoses: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) [E10.3293] 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) [E10.29, R80.9] Order(s):insulin lispro (HUMALOG KWIKPEN INSULIN) 100 unit/mLInject 5 Units subcutaneously three times a day before meals. CORRECTION DOSES 1:50 OVER 150, UP TO 30 UNITS DAILYDisp: 30 mLRfl: 3 insulin glargine (LANTUS SOLOSTAR U-100 INSULIN) 100 unit/mL (3 mL)Inject 14 Units subcutaneously daily at bedtime.Disp: 15 mLRfl: 3 Prescriptions as of 05/17/2024 - insulin lispro (HUMALOG KWIKPEN INSULIN) 100 unit/mL Inject 5 Units subcutaneously three times a day before meals. CORRECTION DOSES 1:50 OVER 150, UP TO 30 UNITS DAILY - insulin glargine (LANTUS SOLOSTAR U-100 INSULIN) 100 unit/mL (3 mL) Inject 14 Units subcutaneously daily at bedtime. - blood sugar diagnostic (FREESTYLE LITE STRIPS) test strip TEST BLOOD SUGARS 6 TIMES DAILY; E 10.29, IDDM, - insulin needles, DISPOSABLE, (SURE COMFORT PEN NEEDLE) 31 gauge x 5/16 USE 4 PEN NEEDLES DAILY, FOR INSULIN PEN USE - lisinopril (ZESTRIL) 40 mg tablet Take 1 tablet by mouth once daily. - atorvastatin (LIPITOR) 10 mg tablet take 1 tablet daily - Cholecalciferol, Vitamin D3, (VITAMIN D-3) 50 mcg (2,000 unit) cap Take 1 capsule by mouth once daily. - hydroCHLOROthiazide 25 mg tablet Take 25 mg by mouth. - furosemide (LASIX) 20 mg tablet Take 1 tablet by mouth once daily. - FLUoxetine HCl 20 mg tablet Take 1 tablet by mouth once daily. - Blood-Glucose Meter (FREESTYLE LITE METER) monitoring kit Use to glucose as directed. 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 CORRECTION DOSES 1:50 OVER 150, UP TO 30 UNITS DAILY LANTUS SOLOSTAR U-100 INSULIN 100 UN* 15 mL 3 05/16/2024 Cmt: Generic or brand: dispense product preferred by patient/insurance unless TERESA flag is selected. Route: SUBCUTANEOUS Sig: Inject 14 Units subcutaneously daily at bedtime. Medications Discontinued During This Encounter Prescriptions - insulin lispro (HUMALOG KWIKPEN INSULIN) 100 unit/mL (Discontinued) INJECT UNDER THE SKIN 1:10 THREE TIMES A DAY AT MEALS AND CORRECTION 1:50 OVER 150, UP TO 30 UNITS DAILY - insulin glargine (LANTUS SOLOSTAR U-100 INSULIN) 100 unit/mL (3 mL) (Discontinued) (more content not included)... [address] 05-14-2024 36 Called Markus and left a voicemail for verbal ok on orders and he can call us back if orders need to be written and posted. [place] [address] Name of caller: Markus Contact phone number: [phone] Relationship to Patient: [facility] Care Provider: Dr. Gómez Practice: [facility] Chief Complaint/Reason for Call: Markus called in to advise of a plan of care, he will be doing pt for 1x a week for 4 weeks for functional mobility training. He would also like to make a request for the patient, she has not showered or done her laundry in a couple weeks because she is afraid to lose her balance and fall. He would like an eval for both occupational therapy and social work to get someone out that can help the patient in the home. Per Markus a verbal order is okay. Please follow up to advise. Best time of day caller can be reached: Any Patient advised that office/PCP has 24-48 business hours to return their call: Yes [facility] 36 Orders faxed [place] [address] Patient has 2 orders in chart. Please verify which order needs faxed. [place] [address] Name of caller: Dahiana monroy Contact phone number: [phone] Relationship to Patient: [facility] Provider: Dr. Gómez Practice: [facility] Chief Complaint/Reason for Call: Pt is starting PT today. Leslie needs a copy of pt's order signed by Dr. Gómez. F: [phone] Please advise Best time of day caller can be reached: Any Patient advised that office/PCP has 24-48 business hours to return their call: No Normal [facility] 36on 05-10-2024 36 Please sign Normal [facility] 36 Left leslie a detail ed message and to call the office, if Dr Gómez needs to be signing any forms. Normal [facility] CNPNon 05-10-2024 CNPN Telephone (ENDMED) FRANKY VILLANUEVA ([id number]) 1955 F [facility] Date Time Provider Department 05/10/24 MICHAEL RODRIGUEZ During your visit today, we recorded the following information about you: Aby Lockhart MA 05/10/2024 11:23 AM Signed Received lab results from [facility]. Placed on docs desk for review. Please advise, thanks. Michael Rodriguez MD 05/10/2024 1:48 PM Signed Reviewed. Allergies As of Date: 05/10/2024 (No Known Allergies) Date Reviewed: 06/16/2023 Reviewed by: Aby Lockhart MA - Fully Assessed Reason for Visit: Results [95] Cmt: [facility] Prescriptions as of 05/13/2024 - blood sugar diagnostic (FREESTYLE LITE STRIPS) test strip TEST BLOOD SUGARS 6 TIMES DAILY; E 10.29, IDDM, - insulin lispro (HUMALOG KWIKPEN INSULIN) 100 unit/mL INJECT UNDER THE SKIN 1:10 THREE TIMES A DAY AT MEALS AND CORRECTION 1:50 OVER 150, UP TO 30 UNITS DAILY - insulin glargine (LANTUS SOLOSTAR U-100 INSULIN) 100 unit/mL (3 mL) INJECT 11 UNITS UNDER THE SKIN DAILY AT BEDTIME - insulin needles, DISPOSABLE, (SURE COMFORT PEN NEEDLE) 31 gauge x 5/16 USE 4 PEN NEEDLES DAILY, FOR INSULIN PEN USE - lisinopril (ZESTRIL) 40 mg tablet Take 1 tablet by mouth once daily. - atorvastatin (LIPITOR) 10 mg tablet take 1 tablet daily - Cholecalciferol, Vitamin D3, (VITAMIN D-3) 50 mcg (2,000 unit) cap Take 1 capsule by mouth once daily. - hydroCHLOROthiazide 25 mg tablet Take 25 mg by mouth. - furosemide (LASIX) 20 mg tablet Take 1 tablet by mouth once daily. - FLUoxetine HCl 20 mg tablet Take 1 tablet by mouth once daily. - Blood-Glucose Meter (FREESTYLE LITE METER) monitoring kit Use to glucose as directed. 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 [facility] 05-08-2024 36 Name of caller: Dahiana monroy Contact phone number: [phone] Relationship to Patient: [facility] Provider: Dr. Gómez Practice: [facility] Chief Complaint/Reason for Call: Leslie called in requesting uncontrolled diabetes orders for intermediate and PT. States verbal orders were called in but they need the orders signed/ dated and faxed over to start. States if they receive the information by tomorrow they can get patient started on Monday next week. 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 . Please Advise Best time of day caller can be reached: any Patient advised that office/PCP has 24-48 business hours to return their call: No [place] [address] Spoke with leslie connor all was addressed [place] [address] Name of caller: Dahiana eliana Contact phone number: [phone] Relationship to Patient: [facility] Provider: Dalia Practice: [facility] Chief Complaint/Reason for Call: Asking for an order to start home health with nursing and also uncontrolled diabetes. Needs updated on her order. Please Advise. Best time of day caller can be reached: Any Patient advised that office/PCP has 24-48 business hours to return their call: Yes [place] [address]on 05-07-2024 36 Transferred to [facility] t notes [place] [address] Message released to patient as written. Patient's further questions if applicable: Patient has an Endo appt - first available - early July. Please send labs to [facility] and please advise if patient should be seen sooner. Were all questions from office addressed or relayed to the patient from encounter: Yes [place] [address] 05-06-2024 36 Placed call to radha nt. Unable to reach them by phone to discuss lab results. Left detailed message to return call to discuss results. Please release information to patient [place] [address] ----- Message from Leslie Spring sent at 05/06/2024 7:38 AM EDT ----- ----- Message ----- From: Norberto Gómez DO Sent: 05/05/2024 5:54 PM EDT To: [facility] Clinical Master Electrician CBC including B12 levels are normal. Her liver and renal function is normal but her glucose level is over 400 and that probably has dropped her sodium which can make her feel weak and unmotivated. For now she should limit liquid intake to no more than 50 ounces per day to keep her sodium from dropping. She should have a recheck BMP in 1 month, but generally the cause of this is due to her uncontrolled diabetes and she needs to follow-up with endocrinology for their assistance in trying to optimize her diabetic control. Due to her other symptoms she does need the MRI of the brain so await that result. Please send a copy of this lab to her supervisor tree trimming, Dr. Rodriguez [facility] 36on 05-03-2024 36 S: The patient is calling the [facility] about the Cymbalta B: She is asking about frequency R: The instructions read twice daily - this would be about 12 hours apart. I would take one in the morning and then again in the evening. Reason for Disposition ? Pharmacy calling with prescription question and triager answers question Protocols used: Medication Question [id number] [facility] 36on 05-02-2024 36 Records and referral faxed [facility] 36 Name of caller: Linnflorian monroy Contact phone number: [phone] Relationship to Patient: [facility] Provider: Practice: [facility] Chief Complaint/Reason for Call: Caller is asking for Face Sheet and office notes from last visit along with insurance information please fax to [phone] Best time of day caller can be reached: any Patient advised that office/PCP has 24-48 business hours to return their call: No [facility] CBC W Auto Differential pane l (Bld)on 04-30-2024 Basophils (Bld) [#/Vol] 46 10*3/uL S [facility] [employer]ave Basophils/100 WBC (Bld) 0.5 % S [facility] Eosinophils (Bld) [#/Vol] 46 10*3/uL [facility] imgfave Eosinophils/100 WBC (Bld) 0.5 % [facility] [employer]ave Erythrocyte distribution width (RBC) [Ratio] 11.4 % 11.0 - 15.0 % [employer] imgfave Hematocrit (Bld) [Volume fraction] 35.4 % 35.0 - 45.0 % [facility] [employer] Hemoglobin (Bld) [Mass/Vol] 11.8 g/dL 11.7 - 15.5 g/dL [facility] [employer] Lymphocytes (Bld) [#/Vol] 719 10*3/uL Low [facility] [employer] Lymphocytes/100 WBC (Bld) 7.9 % [facility] MCH (RBC) [Entitic mass] 31.1 pg 27.0 - 33.[address] [facility] MCHC (RBC) [Mass/Vol] 33.3 g/dL 32.0 - 36.0 g/dL [facility] Comment on above: For adults, a slight decrease in the calculated MCHC value (in the range of 30 to 32 g/dL) is most likely not clinically significant; however, it should be interpreted with caution in correlation with other red cell parameters and the patient's clinical condition. MCV (RBC) [Entitic vol] 93.4 fL 80.0 - 100.[address] [facility] Monocytes (Bld) [#/Vol] 1037 10*3/uL High [facility] Monocytes/100 WBC (Bld) 11.4 % S [facility] Neutrophils (Bld) [#/Vol] 7253 10*3/uL [facility] Neutrophils/100 WBC (Bld) 79.7 % [facility] Platelet mean volume (Bld) [Entitic vol] 9.9 fL 7.5 - 12.[address] [facility] Platelets (Bld) [#/Vol] 416 10*3/uL High [facility] RBC (Bld) [#/Vol] 3.79 10*6/uL Low [facility] WBC (Bld) [#/Vol] 9.1 10*3/uL [facility] Basophils (Bld) [#/Vol] 46 10*3/uL S [facility] Basophils/100 WBC (Bld) 0.5 % [facility] Eosinophils (Bld) [#/Vol] 46 10*3/uL [facility] Eosinophils/100 WBC (Bld) 0.5 % [facility] Erythrocyte distribution width (RBC) [Ratio] 11.4 % 11.0 - 15.0 % [facility] Hematocrit (Bld) [Volume fraction] 35.4 % 35.0 - 45.0 % [facility] Hemoglobin (Bld) [Mass/Vol] 11.8 g/dL 11.7 - 15.5 g/dL [facility] Interpretation and review of laboratory results Abnormal [facility] Lymphocytes (Bld) [#/Vol] 719 10*3/uL Low [facility] Lymphocytes/100 WBC (Bld) 7.9 % [facility] MCH (RBC) [Entitic mass] 31.1 pg 27.0 - 33.[address] [facility] MCHC (RBC) [Mass/Vol] 33.3 g/dL 32.0 - 36.0 g/dL [facility] Comment on above: For adults, a slight decrease in the calculated MCHC value (in the range of 30 to 32 g/dL) is most likely not clinically significant; however, it should be interpreted with caution in correlation with other red cell parameters and the patient's clinical condition. MCV (RBC) [Entitic vol] 93.4 fL 80.0 - 100.[address] [facility] Monocytes (Bld) [#/Vol] 1037 10*3/uL High [facility] Monocytes/100 WBC (Bld) 11.4 % S [facility] Neutrophils (Bld) [#/Vol] 7253 10*3/uL [facility] Neutrophils/100 WBC (Bld) 79.7 % [facility] Platelet mean volume (Bld) [Entitic vol] 9.9 fL 7.5 - 12.[address] [facility] Platelets (Bld) [#/Vol] 416 10*3/uL High [facility] RBC (Bld) [#/Vol] 3.79 10*6/uL Low [facility] WBC (Bld) [#/Vol] 9.1 10*3/uL [facility] Comprehensive metabolic 1998 panelon 04-30-2024 Albumin [Mass/Vol] 4 g/dL 3.6 - 5.1 g/dL [facility] Albumin/Globulin [Mass ratio] 1.4 {ratio} [facility] ALP [Catalytic activity/Vol] 93 U/L 37 - 153 U/L [facility] ALT [Catalytic activity/Vol] 12 U/L 6 - 29 U/L [facility] AST [Catalytic activity/Vol] 14 U/L 10 - 35 U/L [facility] Bilirubin [Mass/Vol] 0.5 mg/dL 0.2 - 1 .2 mg/dL [facility] Calcium [Mass/Vol] 9.4 mg/dL 8.6 - 10. 4 mg/dL [facility] Chloride [Moles/Vol] 85 mmol/L Low 98 - 11 0 mmol/L [facility] Comment on above: Verified by repeat a nalysis. CO2 [Moles/Vol] 27 mmol/L 20 - 32 mmol/L [facility] [employer] Creatinine [Mass/Vol] 0.76 mg/dL 0.60 - 1.00 mg/dL [facility] [employer] GFR/1.73 sq M.predicted among non-blacks MDRD (S/P/Bld) [Vol rate/Area] 84 mL/min/{1.73_m2} > OR = 60 mL/min/1.73m 2 [facility] [employer] Globulin (S) [Mass/Vol] 2.8 g/dL S [facility] Glucose [Mass/Vol] 416 mg/dL High 65 - 99 mg/dL [facility] Comment on above: Verified by repeat a nalysis. Fasting reference interval For someone without known diabetes, a glucose value >125 mg/dL indicates that they may have diabetes and this should be confirmed with a follow-up test. Potassium [Moles/Vol] 4.2 mmol/L 3.5 - 5.3 mmol/L [facility] [employer] Protein [Mass/Vol] 6.8 g/dL 6.1 - 8.1 g/dL [facility] [employer]ave Sodium [Moles/Vol] 130 mmol/L Low 135 - 146 mmol/L [facility] [employer] Urea nitrogen [Mass/Vol] 19 mg/dL 7 - 25 mg/dL [facility] Urea nitrogen/Creatinine [Mass ratio] SEE NOTE: [facility] Comment on above: Not Reported: BUN an d Creatinine are within reference range. No Panel Informationon 04-30 Interpretation and review of laboratory results Abnormal [facility] Vitamin B12on 04-30-2024 Cobalamin (Vitamin B12) [Mass/Vol] 839 pg/mL 200 - 1100 pg/mL [facility] Office Visiton 04-29-2024 Follow-up visit [id number] Franky Villanueva 1955 F Date Provider Department Center 04/29/2024 [id number] GÓMEZ [facility] Family History Problem Relation Age of Onset Other Mother Comments: in 90s Coronary artery disease Father Comments: acute DC, at age 94 No Known Problems Sister Parkinsonism Brother 75 Breast cancer Mother's Sister Family Status - Relation Status Age at Mother Father Sister Alive Brother Alive Mother's Sister Level of Service:[id number] MO OFFICE/OUTPATIENT ESTABLISHED HIGH MDM 40 MIN Reason for Visit and Comments: Difficulty Walking [[id number]] - Weak and unsteady on feet , would like life alert Eye Problem [43] - X 2 days both Normal [facility] Progress Noteon 04-29-2024 Progress Note [facility] - [address] [place] [id number] Visit type: Established Patient Reason for Visit: Difficulty Walking (Weak and unsteady on feet , would like life alert ) and Eye Problem (X 2 days both ) Assessment / Plan: Franky was seen today for difficulty walking and eye problem. Diagnoses and all orders for this visit: Ataxia (Primary) Comments: Recurrent, needs MRI of the brain. Orders: - Vitamin B12; Future - Vitamin B12 Primary hypertension Comments: Stable, continue lisinopril and indapamide Orders: - CBC auto differential; Future - Comprehensive metabolic panel; Future - CBC auto differential - Comprehensive metabolic panel Anxiety and depression Comments: Uncontrolled, stop Prozac and changed to Cymbalta, psychology referral Uncontrolled type 1 diabetes mellitus with hyperglycemia (HCC) Comments: Uncontrolled, possible cause of all her problems. Follow-up with endocrinology Diabetic peripheral neuropathy (HCC) Physical deconditioning Comments: Multifactorial, therapy referral, possible gas prover reevaluation Other orders - DULoxetine (Cymbalta) [address] capsule; Take 1 capsule (30 mg) by mouth 2 times daily. Do not crush or chew. 45 Minutes spent on reviewing pertinent medical, surgical, family and social history, patient interview, physical exam, discussion of diagnosis, treatment and work-up options. See above recommendations. Need to exclude a central nervous system illness. MRI ordered Subjective: Patient ID: Franky Villanueva is a 69 y.o. female. HPI uncontrolled type I diabetic with elevated A1c presents with a good friend concerned about multiple issues. She generally has a downward decline with weakness immobility difficulty getting out of the house and depression. Having difficulty walking and balance has been poor. No recent falls but having to use a walker at home. Has swollen legs for quite a while. A1c has been over 9 forever. Has chronic lymphedema but that is actually better. She denies headache or diplopia or scotomas. No unilateral numbness of the face arms or legs. She just feels weak and unmotivated. He has been no recent falls or head injuries. She denies neck or back pain. Review of Systems having depression despite being on Prozac for a while. She lost her in the fall 2022. She had does have a few friends checking on her. Blood pressure generally better at home. Glucoses are not near goal. To see endocrinology soon. No unilateral numbness of the face arm or legs. No bowel or bladder incontinence. She denies chest pain or dyspnea. Denies PND orthopnea. Had 1 episode of vomiting but no recurrent problems. No abdominal pain. No melena or blood. No diarrhea. No Known Allergies Current Outpatient Medications on File Prior to Visit Medication Sig Dispense Refill atorvastatin (Lipitor) 10 MG tablet Take 1 tablet (10 mg) by mouth daily for 90 doses. 90 tablet 1 Blood Glucose Monitoring Suppl (FreeStyle Lite) device Inject 1 each under the skin 3 times daily. Use as instructed E11.9 1 each 0 cholecalciferol (Vitamin D-3) 50 MCG (2000 UT) capsule Take 2,000 Units by mouth in the morning. FREESTYLE LITE test strip 1 each by Other route 3 times daily. Use as instructed E11.9 200 each 1 glucose blood (FREESTYLE LITE) test strip TEST BLOOD SUGARS 6 TIMES DAILY; E 10.29, IDDM, indapamide (Lozol) 2.5 MG tablet Take 1 tablet (2.5 mg) by mouth every morning. 30 tablet 11 insulin glargine (Lantus SoloStar) 100 UNIT/ML pen Inject 11 Units under the skin. insulin lispro (HumaLOG) 100 UNIT/ML injection Inject subcutaneously 10 units three times daily at meals. lisinopril 40 MG tablet Take 1 tablet (40 mg) by mouth daily for 90 doses. 90 tablet 1 Multiple Vitamin (MULTIVITAMIN ADULT PO) Take by mouth. Sure Comfort Pen [place] 31G X 8 MM misc triamcinolone (Kenalog) 0.1 % cream Apply topically 2 times daily. [DISCONTINUED] FLUoxetine (PROzac) 20 MG capsule Take 1 capsule (20 mg) by mouth daily. 90 capsule 1 No current facility-administered medications on file prior to visit. 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 Taylor- divert ds- due 2031 COLONOSCOPY 2007 ESOPHAGOGASTRODUODENOSC OPY 09/2021 Esophageal candidiasis Family History Problem Relation Name Age of Onset Other Mother (more content not included)... [facility] 04-24-2024 36 S: Patient's friend, Rola spoke with [facility] nurse regarding overall decline. B: Onset of symptoms started ongoing, but worsening. Patient is a falls risk. A: Reports increased balance and ambulation issues due to the swelling in bilateral lower legs. Over the weekend Rola tried taking her out and patient was not able to ambulate without holding on to Rola for dear life. She is ambulating around the house with a walker, but is very unsteady. She is no longer driving, leaving the house, not taking a shower and is now becoming increasingly isolated. Friend states she is spiraling and not thriving. Unsure if diabetes is being controlled. She is very unsure of herself at this time. Denies recent falls, severe pain or loss of appetite. Rola also reports patient does not have a voice. She has no other cold symptoms as of today, just no voice. R: Insurance verified. Appointment was scheduled for 04/29/24 at [address] Gómez. Instructed to bring insurance card and ID to the visit. Denies COVID symptoms or exposure. Advised to remove clutter/rugs in the home, keep night light on, use of assistive device and change positions slowly. In regards to laryngitis, warm fluids, lemon, humidifier, salt water gargles and rest voice. Rola understands care advice. No further needs at this time. Instructed to call back with new or worsening symptoms. Reason for Disposition MODERATE weakness (e.g., interferes with work, school, normal activities) and new-onset or getting worse Protocols used: Falls and [id number] [facility] 04-19-2024 36 Name of Caller: Franky Relationship to Patient: Patient Contact phone number: [phone] Best time of day caller can be reached: Pt calling back answering machine will come on after 6 beeps; please leave detailed message on answering machine re results if she is unable to answer. Date testing performed/completed: Mammogram 04/16/24 Where or by whom was testing performed: Arlyn Beltran Patient advised that office/PCP has 24-48 business hours to return their call: No Normal [facility] 36on 04-17-2024 36 Noted Normal [facility] 36 Name of Caller: Franky Villanueva Relationship to Patient: Patient Contact phone number: [phone] Best time of day caller can be reached: any Answering machine will come on after 6 beeps; please leave detailed message on answering machine re results if she is unable to answer. Date testing performed/completed: Mammogram 04/16/24 Where or by whom was testing performed: Arlyn Beltran Patient advised that office/PCP has 24-48 business hours to return their call: Yes Normal [facility] DBT Breast - bilateral scree steffigon 04-16-2024 No mammographic evidence of malignancy. ASSESSMENT: Category 1 Negative RECOMMENDATION: Routine screening mammogram in 1 year. Bilateral CANCER RISK ASSESSMENT: This risk assessment is based on patient provided information collected in a risk survey taken at the time of this examination. LIFETIME BREAST CANCER RISK: Elijah 8: 7% - If greater than or equal to 20%, consider annual mammogram and annual screening Breast MRI or follow up in high risk clinic. Is the patient at elevated risk based on the HBOC criteria? No (Hereditary Breast and Ovarian Cancer) - If Yes, consider genetic counseling and testing with high risk follow up Is the patient at elevated risk based on the Rey Syndrome criteria? No - If Yes, consider genetic counseling and testing with high risk follow up. Report Dictated on Electronically Signed By: Martina Osorio MD Electronically Signed Date/Time: 04/16/2024 1:05 PM [facility] Patient Name: FRANKY VILLANUEVA : 1955 Exam Date/Time: 04/16/2024 09:57 Procedure: BI MAMMOGRAM SCREENING TOMOSYNTHESIS BILATERAL Ordering Provider: GÓMEZ EUGENE Reason For Exam: This exam was performed at [place] [address] [address] [facility] [address] PATIENT CANCER HISTORY: No Personal History of Cancer FAMILY CANCER HISTORY: Maternal Aunt Breast Cancer Image views: 2D Bilateral CC and MLO views were acquired. 3D Bilateral CC and MLO views were acquired. Images were reviewed with CAD. Markings on images: BB's = Nipples; skin lesions Open [place]sh[place] = Palpable Line = Scar COMPARISON: 09/17/2018, 10/05/2020, 06/20/2022 TISSUE DENSITY: BIRADS C - The breasts are heterogeneously dense, which may obscure small masses. FINDINGS: Postsurgical changes are present on the right. No suspicious masses, architectural distortions or suspiciously clustered microcalcifications are identified. There is no evidence of skin thickening or nipple retraction. There are no significant changes when compared with prior studies. [facility] Martina Osorio MD - 04/16/2024 Patient Name: FRANKY VILLANUEVA : 1955 Exam Date/Time: 04/16/2024 09:57 Procedure: BI MAMMOGRAM SCREENING TOMOSYNTHESIS BILATERAL Ordering Provider: GÓMEZ EUGENE Reason For Exam: This exam was performed at [address] [address] PATIENT CANCER HISTORY: No Personal History of Cancer FAMILY CANCER HISTORY: Maternal Aunt Breast Cancer Image views: 2D Bilateral CC and MLO views were acquired. 3D Bilateral CC and MLO views were acquired. Images were reviewed with CAD. Markings on images: BB's = Nipples; skin lesions Open [place] = Palpable Line = Scar COMPARISON: 09/17/2018, 10/05/2020, 06/20/2022 TISSUE DENSITY: BIRADS C - The breasts are heterogeneously dense, which may obscure small masses. FINDINGS: Postsurgical changes are present on the right. No suspicious masses, architectural distortions or suspiciously clustered microcalcifications are identified. There is no evidence of skin thickening or nipple retraction. There are no significant changes when compared with prior studies. IMPRESSION: No mammographic evidence of malignancy. ASSESSMENT: Category 1 Negative RECOMMENDATION: Routine screening mammogram in 1 year. Bilateral CANCER RISK ASSESSMENT: This risk assessment is based on patient provided information collected in a risk survey taken at the time of this examination. LIFETIME BREAST CANCER RISK: Elijah 8: 7% - If greater than or equal to 20%, consider annual mammogram and annual screening Breast MRI or follow up in high risk clinic. Is the patient at elevated risk based on the HBOC criteria? No (Hereditary Breast and Ovarian Cancer) - If Yes, consider genetic counseling and testing with high risk follow up Is the patient at elevated risk based on the Rey Syndrome criteria? No - If Yes, consider genetic counseling and testing with high risk follow up. Report Dictated on Electronically Signed By: Martina Osorio MD Electronically Signed Date/Time: 04/16/2024 1:[address] [facility] Radiology Study observation (narrative) [facility] alth DBT Breast - bilateral scree ningOrdered By: Martina Osorio on 04-16-2024 [facility] imgfave Work Phone: Progress Noteon 04-16-2024 Progress Note Second blood pressur e reading near goal so continue meds as is. Checkup with me in 3 to 4 months. Most importantly follow-up with supervisor tree trimming to try to obtain optimal diabetic control. [facility] Progress Note [address] [facility] [address] [facility] [id number] @[email or web address]@ Patient arrived for nurse visit today. Two patient identifiers used to confirm correct patient yes Supervising provider for clinic visit Dr. Gómez is taking Lisinopril 40mg for hypertension with excellent compliance and no side effects regular Shortness of breath no Medication compliance yes Medication Reconciliation yes BP Medication taken prior to visit yes at what time 8am B/P Reading taken manual Home Monitoring yes Patient advised if follow up is needed, outreach will occur in 48 hours First BP:146/84 Second BP:136/68 HR:64 Patient stated that she just went over for her mammogram and it was very stressfull for her Normal [facility] Progress Note Pt aware. [facility] 36on 03-20-2024 36 Orders pended for doctor signature [facility] 36 ----- Message from Sayda Spring sent at 03/20/2024 2:04 PM EST ----- Pt consents to mammogram and was given number to call and schedule. ----- Message ----- From: Norberto Gómez DO Sent: 03/20/2024 1:33 PM EST To: Felecia Koroma; Sayda Talavera MA Call the patient and ask if she would consent to getting her screening mammogram which is overdue. I would highly recommend that since she has a history of breast cancer 20 years ago. Please post referral if she agrees [facility] 37on 03-20-2024 37 Wear support hose as discussed. Recheck blood pressure with staff in 4 weeks. Call in 4 to 5 weeks in the no better in mood and motivation we will increase Prozac at that time Normal [facility] Office Visiton 03-20-2024 Follow-up visit [id number] KayFranky 1955 [facility] Provider Department Center 03/20/2024 [id number] GÓMEZ [facility] Family History Problem Relation Age of Onset Other Mother Comments: in 90s Coronary artery disease Father Comments: acute DC, at age 94 No Known Problems Sister Parkinsonism Brother 75 Breast cancer Mother's Sister Family Status - Relation Status Age at Mother Father Sister Alive Brother Alive Mother's Sister Level of Service:13855 MO OFFICE/OUTPATIENT ESTABLISHED MOD MDM 30 MIN Reason for Visit and Comments: Follow-up [433348] - Med Check Foot Swelling [600394] Normal [facility] Progress Noteon 03-20-2024 Progress Note [facility] [address] [facility] [address] Visit type: Established Patient Reason for Visit: Follow-up (Med Check ) and Foot Swelling Assessment / Plan: Franky was seen today for follow-up and foot swelling. Diagnoses and all orders for this visit: Primary hypertension (Primary) Comments: Uncontrolled, add Lozol to lisinopril. 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 Rodriguez., Skin lotion and rare use of Kenalog cream. Orders: - Hemoglobin A1c; Future - Hemoglobin A1c Anxiety and depression Comments: Stable, patient defers increasing Prozac at this time Hypercholesterolemia Comments: Stable, continue Lipitor Peripheral edema Comments: Actually improving. Continue focal care, skin lotions, elevate legs and wear support hose Orders: - TSH; Future - TSH Breast cancer screening by mammogram Comments: Will reach out to patient on her consent for mammogram referral Other orders - indapamide (Lozol) 2.5 MG tablet; Take 1 tablet (2.5 mg) by mouth every morning. Subjective: Patient ID: Franky Villanueva is a 68 y.o. female. HPI uncontrolled type I diabetic on insulin presents for follow-up for overall health but also her scaliness on her legs and pedal edema. Things are actually improving somewhat. Less swelling and scaliness is improving with skin lotions and as needed triamcinolone recommended by dermatology. Has had extensive workup including leg arterial and venous Dopplers. Saw vascular clinic in [place] a few days ago. No surgical intervention recommended. Review of Systems A1c is not close to goal. Patient will be seeing endocrinology in a few months. No change in vision. She denies recent earache sore throat or cough. No chest pain or palpitations. Non-smoker. No cough PND orthopnea claudication. No heartburn or abdominal pain. Bowels are regular. No melena or blood. Colonoscopy up-to-date. Overdue for mammogram. History of right breast cancer lumpectomy 20 years ago. Scaliness on her distal legs is better. Not as much flakiness and no erythema. She has cool toes and feet but denies claudication. Has chronic varicosities. No Known Allergies Current Outpatient Medications on File Prior to Visit Medication Sig Dispense Refill atorvastatin (Lipitor) 10 MG tablet Take 1 tablet (10 mg) by mouth daily for 90 doses. 90 tablet 1 Blood Glucose Monitoring Suppl (FreeStyle Lite) device Inject 1 each under the skin 3 times daily. Use as instructed E11.9 1 each 0 cholecalciferol (Vitamin D-3) 50 MCG (2000 UT) capsule Take 2,000 Units by mouth in the morning. FLUoxetine (PROzac) 20 MG capsule Take 1 capsule (20 mg) by mouth daily. 90 capsule 1 FREESTYLE LITE test strip 1 each by Other route 3 times daily. Use as instructed E11.9 200 each 1 glucose blood (FREESTYLE LITE) test strip TEST BLOOD SUGARS 6 TIMES DAILY; E 10.29, IDDM, insulin glargine (Lantus SoloStar) 100 UNIT/ML pen Inject 11 Units under the skin. insulin lispro (HumaLOG) 100 UNIT/ML injection Inject subcutaneously 10 units three times daily at meals. lisinopril 40 MG tablet Take 1 tablet (40 mg) by mouth daily for 90 doses. 90 tablet 1 Multiple Vitamin (MULTIVITAMIN ADULT PO) Take by mouth. Sure Comfort Pen [place] 31G X 8 MM [facility] triamcinolone (Kenalog) 0.1 % cream Apply topically 2 times daily. [DISCONTINUED] furosemide (Lasix) 40 MG tablet Increase to 1 in the morning and one half in the evening. 45 tablet 1 [DISCONTINUED] torsemide (Demadex) 20 MG tablet Take 1 tablet (20 mg) by mouth daily. 30 tablet 5 No current facility-administered medications on file prior to visit. 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 Taylor- divert ds- due 2031 COLONOSCOPY 2006 ESOPHAGOGASTRODUODENOSC OPY 09/2021 Esophageal candidiasis Family History Problem Relation Name Age of Onset Other Mother in 90s Coronary artery disease Father acute DC, at age 94 No Known Problems Sister Parkinsonism Brother 75 Breast cancer Mother's Sister Objective: BP (!) 144/84 Pulse 66 Temp 36.6 ?C (97.9 ?F) (Temporal) Ht 5' 5 (1.651 m) Wt 144 lb 6.4 oz (65.5 kg) SpO2 98% BMI 24.03 kg/m? Physical Exam (more content not included)... Normal [facility] 36on 03-14-2024 36 Noted. Normal [facility] 36 S: pt calling [facility] d/ t vaginal discharge, bumps. B: discharge started a year ago and bumps started 3 weeks ago A: states has had a brown discharge that started a year ago. Dx with nelson states now has bumps on pubic mound that started over the last couple weeks. States they are smaller than a pea. States that is starting to get a few more. Some areas are red and when she feels it can feel bumps there Denies pain, itching, fever or drainage. Pt had previous referral that she had declined prior. States now she would like to see the salon professional. R: scheduled new patient appointment with Dr. Mariam Garner at [facility] on 04/10 at 9:45 address and phone number given to patient. Pt advised to call back with worsening of symptoms, concern or questions. Pt verbalized understanding. Reason for Disposition Localized rash present > 7 days Protocols used: Rash or Redness - [id number] [facility] MR/BMS.BVSon 03-05-2024 MR/BMS.BVS [facility]ascular Surgery [address] [place] [address] OFFICE VISIT Date of Service: 03/05/24 MR#: [id number] Acct: [id number] Name: FRANKY VILLANUEVA Rep #: [id number] : 1955 Provider: MAHSA Tejada Age/Sex: 68/F Location: [facility] Status: Signed Intake Vital Signs 05/27/23 12:50 03/05/24 10:07 Height 5 ft 5 in Weight: 142 lb BP 149/64 H Blood Pressure Location Rt brachial Position Sitting Respiration 16 Pulse 70 Pulse Source Monitor Temp 98.0 F Temp Source Temporal Pulse Oximetry (%) 99 Oxygen Delivery Method room air Intake Visit Reasons: 3-4 m M FU Is patient in pain?: No Allergies No Known Allergies Allergy (Verified 03/05/24 10:08) Medications ???Medication ???Instructions ???Recorded ???Confirmed ???Type fluoxetine 20 mg capsule 20 mg PO DAILY 06/09/21 03/05/24 History insulin glargine 100 unit/mL (3 11 unit subcut QPM 06/09/21 03/05/24 History mL) subcutaneous pen (Lantus Solostar U-100 Insulin) insulin lispro 100 unit/mL 8 unit subcut TID SLIDING SCALE 06/09/21 03/05/24 History subcutaneous pen (Humalog KwikPen (U-100) Insulin) lisinopril 40 mg tablet 40 mg PO DAILY 06/09/21 03/05/24 History atorvastatin 10 mg tablet 10 mg PO DAILY 07/15/21 03/05/24 History Is last menstrual period known: No Post menopausal: Yes Patient : No Have you fallen in the past year?: Yes PFSH Medical History Wears glasses Cancer Insulin dependent diabetes mellitus High cholesterol Easy bruising Dietary restriction Non-smoker History of stress test Hypertension Alcohol use Depression Unsteadiness Right carotid bruit Anxiety Change in bowel movement Diabetic retinopathy Diabetic neuropathy associated with type 1 diabetes mellitus Vaginal stenosis Surgical History History of cardiac catheterization Hx of colonoscopy S/P lumpectomy of breast Social History Smoking Status: Never smoker alcohol intake: current alcohol intake frequency: 3 or more drinks per day Alcohol type: wine HPI HPI HPI: FRANKY VILLANUEVA, is a 68 F who presents to the office today for follow-up of bilateral lower extremity edema with associated chronic skin changes. At last office visit, ordered venous reflux study and LEAS and recommended compression stockings, leg elevation, and regular exercise regimen. Arterial study showed right NED 1.35, TBI 0.64, triphasic waveforms throughout and left NED 1.29, TBI 0.71, triphasic waveforms throughout. Venous reflux study revealed right below-knee GSV and ASV incompetence and left below-knee GSV incompetence. She admits that she has not really tried compression as recommended. She wore the stockings intermittently for maybe 1 month. She was not really able to convey any particular barrier to her wearing compression. She feels that her lower extremity symptoms have gotten a bit worse since the last appointment, mostly referring to the appearance of spider veins. She also notes worsening numbness/paresthesias in her bilateral lower extremities. She continues to had persistent erythema and dry/flaky skin on both her bilateral lower legs and her bilateral hands/forearms. She has been treated by dermatology for eczema, she has follow-up with Dr. Indra gooden. ROS General General: Yes weight change, fatigue, breast cancer and weakness; No appetite or colon cancer HEENT HEENT: No difficulty swallowing, eye injury, eye surgery, swollen glands or hoarseness Endo Endocrine: Yes diabetes mellitus; No thyroid disease, thyroid cancer, Hair loss, heat intolerance or cold intolerance Skin Skin: Yes rash; No changing moles Musc Musculoskeletal: No back problems, arthritis, rheumatoid arthritis, gout or joint pain Cardio Cardiovascular: Yes murmur; No pacemaker, heart disease, atrial fibrillation, high blood pressure, heart attack, heart stent, palpitations, shortness of breat with exertion or chest pain Psych Psychiatric: Yes depression and anxiety; No hearing voices Resp Respiratory: No shortness of breath, No sleep apnea, No cough, No COPD, No asthma, No emphysema and No wheezing Gastro Gastrointestinal: No abdominal pain, No nausea or vomiting, No diarrhea, No constipation, No blood in stool, No acid reflux, No hemorrhoids, No ulcers, No gallbladder problem and No black,tarry stools Brady Hematologic: No blood thinners, No blood disorders, No bleeding, No anemia and No blood clots Neuro Neurologic: No system reviewed and no additional complaints, except as documented, No as per HPI, No abnormal gait, No abnormal hearing, No abnormal movements, No abnormal speech, (more content not included)... Normal [facility] Lower Ext Art Exam w/o Exerc brunilda 01-11-2024 Lower Ext Art Exam w/o Exercis [facility] Cardiovascular [facility] [address] [place] [address] Lower Ext Art Exam w/o Exercis 01/11/24 0903 MR#: [id number] Acct: [id number] Name: FRANKY VILLANUEVA Rep #: [id number] : 1955 68 From: Berhane Chen MD Attending Dr: MAHSA Tejada Status: REG CLI Ordering Dr: Shayna Villarreal Date: 01/11/24 Location: [facility] Sex: F C Admitted: Reason For Study: Decreased pedal pulses Procedure A bilateral lower extremity continuous wave Doppler with analog waveform analysis,segmental pressures,and ankle brachial indexes without exercise. Left Segmental Pressures Left brachial= 173mmHg. Left posterior tibial artery = 218mmHg. Left dorsalis pedis artery = 223mmHg. Left digit = 123 mmHg. The left dorsalis pedis waveforms are triphasic. The left posterior tibial artery waveforms are triphasic. Right Segmental Pressures Right brachial= 169mmHg. Right posterior tibial artery = 212mmHg. Right dorsalis pedis artery = 233mmHg. Right digit = 110 mmHg. The right dorsalis pedis waveforms are triphasic. The right posterior tibial artery waveforms are triphasic. Indices The right ankle brachial index by the dorsalis pedis is 1.35. The right ankle brachial index by the posterior tibial artery is 1.23. The right digital-brachial index is 0.64. The left ankle brachial index by the dorsalis pedis is 1.29. The left ankle brachial index by the posterior tibial artery is 1.26. The left digital-brachial index is 0.71. VL/Lower Ext Art Exam w/o Exercis Interpretation Summary Right NED 1.35, normal. Doppler/PVR waveforms of the right leg normal at rest. TBI diminished, pedal/digit disease vs spasm. Left NED 1.29, normal. Doppler/PVR waveforms of the left leg normal at rest. TBI diminished, pedal/digit disease vs spasm. Ordering Physician: hSayna Villarreal Referring Physician: Norberto Gómez Performed By: Tiffanie Diaz Anupama 01/11/24 1115 Date Berhane Chen MD CC: MAHSA Tejada; Dr. Norberto Gómez DO Date Dictated: 01/11/2403 Date Transcribed: 01/11/241114 Sheet Metal Apprentice: Signed Normal [facility] Venous Duplex US - Dick [facility] 01-11-2024 Venous Duplex US - Dick Extrem [facility] Cardiovascular Services [address] [place] [address] Venous Duplex US - Dick Extrem 01/11/24 0918 MR#: [id number] Acct: [id number] Name: FRANKY VILLANUEVA Rep #: [id number] : 1955 68 From: Berhane Chen MD Attending Dr: MAHSA Tejada Status: REG CLI Ordering Dr: Shayna Villarreal Date: 01/11/24 Location: [facility] Sex: F C Admitted: Reason For Study: Bilateral leg swelling RIGHT LEFT CFV is compressible, spontaneous, phasic, CFV is compressible, spontaneous, phasic, competent and demonstrates normal competent, and demonstrates normal augmentation. augmentation. FV is compressible, spontaneous, phasic, FV is compressible, spontaneous, phasic, competent and demonstrates normal competent and demonstrates normal augmentation. augmentation. POP V is compressible, spontaneous, phasic, POP V is compressible, spontaneous, phasic, competent and demonstrates normal competent and demonstrates normal augmentation. augmentation. T/P Trunk is compressible. T/P Trunk is compressible. PTV is compressible. PTV is compressible. RT PerV is compressible. LT PerV is compressible. SFJ is competent and measures 0.49 cm. SFJ is competent and measures 0.52 cm. GSV proximal thigh measures 0.30 x 0.30 cm. GSV proximal thigh measures 0.29 x 0.26 cm. GSV above knee is competent. GSV above knee is competent. GSV at knee measures 0.14 x 0.13 cm. GSV at knee measures 0.18 x 0.17 cm. GSV below knee is INCOMPETENT for greater GSV below knee is INCOMPETENT for greater than 0.5 seconds. than 0.5 seconds. ASV mid calf is INCOMPETENT for greater than SSV mid calf is competent and measures 0.15 x 0.5 seconds and measures 0.17 x 0.19 cm. 0.14 cm. SSV mid calf is competent and measures 0.17 x 0.19 cm. Procedure This is a venous duplex using B-mode, color flow and spectral Doppler. Exam performed in department. Patient was scanned in reverse Trendelenburg position during reflux assessment. VL/Venous Duplex US - Dick Extrem Interpretation Summary Deep veins of the bilateral lower extremities are patent and compressible segmentally. There is no evidence of bilateral lower extremity deep vein thrombosis. The bilateral great saphenous veins appear patent and compressible segmentally. Positive for reflux in the right great saphenous vein below the knee, accessory saphenous vein in the calf. Positive for reflux in the left great saphenous vein below the knee. Ordering Physician: Shayna Villarreal Referring Physician: Norberto Gómez Performed By: Tiffanie Diaz RVT 01/11/24 1118 Date Berhane Chen MD CC: MAHSA Tejada; Dr. Norberto Gómez DO Date Dictated: 01/11/24917 Date Transcribed: 01/11/241117 Sheet Metal Apprentice: Astrid [facility] MR/BMS.CHRISTINASon 12-28-2023 MR/BMS.BVS [facility] [address] [place] [address]. [address] [place] [address] OFFICE VISIT Date of Service: 12/28/23 MR#: [id number] Acct: [id number] Name: FRANKY VILLANUEVA Rep #: [id number] : 1955 Provider: MAHSA Tejada Age/Sex: 68/F Location: [facility] Status: Signed Intake Vital Signs 05/27/23 12:50 12/28/23 08:57 Height 5 ft 5 in Weight: 137 lb BP 142/72 H Blood Pressure Location Rt radial Position Sitting Respiration 14 Pulse 68 Pulse Source Monitor Temp 98 F Temp Source Temporal Pulse Oximetry (%) 100 Oxygen Delivery Method room air Intake Visit Reasons: LYMPHEDEMA Chief Complaint: establish care Is patient in pain?: No Allergies No Known Allergies Allergy (Verified 12/28/23 09:00) Medications ???Medication ???Instructions ???Recorded ???Confirmed ???Type fluoxetine 20 mg capsule 20 mg PO DAILY 06/09/21 12/28/23 History insulin glargine 100 unit/mL (3 11 unit subcut QPM 06/09/21 12/28/23 History mL) subcutaneous pen (Lantus Solostar U-100 Insulin) insulin lispro 100 unit/mL 8 unit subcut TID SLIDING SCALE 06/09/21 12/28/23 History subcutaneous pen (Humalog KwikPen (U-100) Insulin) lisinopril 40 mg tablet 40 mg PO DAILY 06/09/21 12/28/23 History atorvastatin 10 mg tablet 10 mg PO DAILY 07/15/21 12/28/23 History Is last menstrual period known: No Post menopausal: Yes Patient : No Have you fallen in the past year?: Yes [facility] Medical History (Updated 12/28/23 @ 14:34 by MAHSA Tejada) Wears glasses Cancer Insulin dependent diabetes mellitus High cholesterol Easy bruising Dietary restriction Non-smoker History of stress test Hypertension Alcohol use Depression Unsteadiness Right carotid bruit Anxiety Change in bowel movement Diabetic retinopathy Diabetic neuropathy associated with type 1 diabetes mellitus Vaginal stenosis Surgical History History of cardiac catheterization Hx of colonoscopy S/P lumpectomy of breast Social History Smoking Status: Never smoker alcohol intake: current alcohol intake frequency: 3 or more drinks per day Alcohol type: wine HPI HPI HPI: FRANKY VILLANUEVA, is a 68 F who presents to the office today as referred by her PCP Dr. Gómez for evaluation of lymphedema. She is accompanied to her appointment today by a friend who helps with her healthcare. She reports that since spring she has noticed increased bilateral lower extremity edema, skin color changes, dry skin. She reports that her swelling stays fairly consistent, it doesn't really improve with elevation and she doesn't feel that it gets significantly worse at the end of the day. She has not had any wounds or blisters. She has noticed that she has red discoloration of the skin in her lower legs and the skin feels tight and hard to touch. She has scattered spider veins which are generally asymptomatic. She has aching discomfort through her legs. She does not particularly notice pain or discomfort worse with activity. She does admit to numbness/paresthesias as well. She also has had a lot of dry, flaky skin despite using lotion. She has measured compression stockings, but has really not tried to use them. She denies history of VTE. She has tried diuretics without any significant improvement. She had a venous ultrasound which was negative for DVT but did not include a reflux study. She denies history of CHF, denies FELDMAN/orthopnea/CP/palpit ations. She has type 1 diabetes diagnosed about 50 years ago. She admits her control has historically not been the best. Her most recent A1c was around 9. She reports she was diagnosed with diabetic neuropathy years ago but has not had any recent tests in that regard. She has a history of right breast cancer. She did not receive any pelvic/abdominal radiation. She does not have any edema in her upper extremities. She does also have erythematous, dry/scaly appearance of the skin of her hands and extending proximally up her arms. She reports she has seen dermatology Dr. Burrell for this in the past and was told it was eczema. She was prescribed a steroid cream but has not used it. She does report that she has had reduced overall activity since her passed last year. She has developed a fear of falling and so doesn't adhere to a walking regimen anymore and spends a lot more time sitting. ROS General General: Yes weight change, fatigue, breast cancer and weakness; No appetite or colon cancer HEENT HEENT: No difficulty swallowing, eye injury, eye surgery, swollen glands or hoarseness Endo Endocrine: Yes diabetes mellitus; No thyroid disease, thyroid cancer, Hair loss, heat intolerance or cold intolerance S (more content not included)... [facility] 11-16-2023 36 Spoke with patient s he does not want OT she wants some who specializes in lymphedema [facility] 11-15-2023 36 Name of caller: franky Contact phone number: [phone] Relationship to Patient: patient Provider: dalia Practice: [facility] Chief Complaint/Reason for Call: Pt states is needing a referral to a doctor in [place] that is M.D with a specialty of lymphedema. Please advise. Best time of day caller can be reached: AM Patient advised that office/PCP has 24-48 business hours to return their call: Yes [facility] 36 Name of caller: Franky Contact phone number: [phone] Relationship to Patient: patient Provider: Dr. Gmóez Practice: Chief Complaint/Reason for Call: PT would like to talk to the office basil to discuss her referral the was updated in her records. Peripheral edema Best time of day caller can be reached: any Patient advised that office/PCP has 24-48 business hours to return their call: No [place] 3774311-10-2023 36 Name of caller: Franky Contact phone number: [phone] Relationship to Patient: patient Provider: Practice: [facility] Chief Complaint/Reason for Call: Patient calling and states her referral to OT, needs to say Lymphedema specialist specifically. Please send new referral. Best time of day caller can be reached: any Patient advised that office/PCP has 24-48 business hours to return their call: no [address] 11-08-2023 36 Recent Visits Date Type Provider Dept 09/28/23 Office Visit Norberto Gómez DO [facility] 07/20/23 Office Visit Allen Rapp PA-C [facility] 07/12/23 Office Visit Norberto Gómez DO [facility] 05/30/23 Office Visit Norberto Gómez DO [facility] Showing recent visits within past 365 days and meeting all other requirements Future Appointments Date Type Provider Dept 01/11/24 Appointment Norberto Gómez DO [facility] Showing future appointments within next 90 days and meeting all other requirements Requested Prescriptions Pending Prescriptions Disp Refills FLUoxetine (PROzac) 20 MG capsule [Pharmacy Med Name: FLUOXETINE HCL CAPS 20MG] 90 capsule 1 Sig: Take 1 capsule (20 mg) by mouth daily. Provider: Norberto Gómez DO Verified pharmacy: yes Verified day(s) supplied: yes Verified refill(s) needed (previous prescription showing no refills in chart): Yes Have you received any controlled medications from any other provider? N/A Overdue for visit: No If yes - patient scheduled? Yes Most recent labs completed in chart? Yes None [facility] 36on 11-05-2023 36 Name of caller: Franky Contact phone number: [phone] Relationship to Patient: patient Provider: Dr Gómez Practice: [facility] Chief Complaint/Reason for Call: Patient Franky Villanueva called in asking if Dr Gómez can write a referral for her to go to a lymphedema clinic and if possible a clinic in or close to the [facility]. Please advise. Best time of day caller can be reached: any Patient advised that office/PCP has 24-48 business hours to return their call: N/A [facility] 36on 10-19-2023 36 Placed call to radha last. Two patient identifers confirmed. Was able to speak to patient. All concerns in message have been addressed. No questions at this time. Call ended [facility] 36 Script sent if not better should followup with PCP dr gómez [facility] 36 S-Pt states she has taken the full Rx 7 days of Metronidazole and is not any better and would like to know if she can take another 7 pills that she has left over from the original Rx . (Pharmacy originally gave her 7 tabs, the office ordered Rx with 14) R-Please call patient @ [phone] [facility] 36 Reason for Dispositi on [1] Caller has NON-URGENT medicine question about med that PCP prescribed AND [2] triager unable to answer question Answer Assessment - Initial Assessment Questions . Protocols used: Medication Question [facility] Inital [facility] (1) - PTon 10-18-2023 Inital Evaluation (1) - PT [facility] [address] [place] [address] [address] [place] [address] / REHABILITATION SERVICES INITIAL EVALUATION MR#: [id number] Acct: [id number] Name: FRANKY VILLANUEVA Rep #: [id number] : 1955 68 From: Pj David DPT Referring Dr.: Dr. Norberto Gómez, DO Status: REG RCR Insurance: MEDICARE PART A B WPS FOR LIFE Patient's Visit Information Visit Information Visit Information: FRANKY VILLANUEVA is a 68 year old F referred to Physical Therapy by Dr. Norberto Gómez DO with a diagnosis of B leg weakness. Date of Evaluation: 10/17/23 Physical Therapist: Pj David DPT Visit Plan Frequency: 1x/Week Duration: 6 Weeks Plan: Pt. desires to complete exercises on her own at this point in time. I stressed progressive walking program. I also gave her standing balance/LE strengthening exercises. She does have some edema in BLEs. I first recommending overall more general mobility, but also some compression garments. I also stressed frequent foot checks due to her neuropathy in BLEs. Pt. to complete exercises on her own then follow up with PT as needed. Subjective Subjective: Pt. is here today for her initial evaluation with diagnosis of B leg weakness. Pt. is here today with her friend. Pt. reports over the past few years stemming around the initial stages of the COVID pandemic that she began to be more sedentary and staying with in home. Her also recently resulting in further sedentary lifestyle. She also fell 4-6 months ago resulting in reports of further fear of falling and reduced activity. She recently saw podiatry of her LEs, whom suggested overall increased mobility to assist with her BLE edema. Possible vascular insufficiency??? She reports overall being very fearful of falling and does not like to leave the home. She also reports having increased fear while in shower and therefore reduces her bathing routines. Pt. has previously uncontrolled diabetes and has resultant diabetic neuropathy in her LEs. Pt. is hopeful to increase her strength and reduce her risk for future falls. Objective Objective: POSTURE: Pt. has decent posture in stance, Normal wt. shift between BLEs. PALPATION: Pt. has marked edema in B distal LEs. Pt. has some flaking of her skin, no compression stockings on today. NEURO: Reduced sensation to light and sharp touch of BLEs from knee down. Pt. has reduced patellar and achilles DTR 1+ bilaterally. Pt. is able to rise on heels and toes with slight balance aide of wall. ROM: Pt. has good ROM of BLEs without issues. Tightness noted in B HS and B quads. tightness noted in calves as well. MMT: Pt. has 5/5 strength throughout BLEs and symmetrical. GAIT: Pt. ambulates without AD, decent step length noted. Slight occasional lateral deviation, but minimal. TU.2sec without AD 30 sec sit to stand rep test: 13 without use of UEs. STAIRS: Pt. able to complete with use of BHR with reciprocal pattern. Pt. does report increased fear of falling with descending. Balance/Special Test Scores Functional Gait Assessment Score: 24 % Disability: 20.0000 Lower Extremity Functional Score: 33 Goals Goal 1:: LTG: pt. to be I with HEP for balance and progressive walking program. Goal Time Frame: 2-4 Weeks Goal 2:: LTG: Pt. to be have improved FGA to 26/30 indicating increased overall functional stability. Goal 3:: LTG: pt. to have improve TUG time to less than 10sec indicating good functional mobility. Goal Time Frame: 2-4 Weeks Rehabilitation Potential Physical Therapy Diagnosis: Pt. has signs and symptoms consistent with B leg weakness, but more so with high levels of fear of falling and neuropathy in BLEs effecting her balance. Pt. would benefit from a progressive walking program and progressive standing LE exercises with a balance component. Pt. would assist in increasing her general activity tolerance. Rehabilitation Potential: Good Anticipated Interventions Patient/Client Instruction: Educate patient on: Condition, Plan of Care, Risk Factors and Benefits of Fitness Program For the Purpose of:: To improve decision making, To facilitate caregiver knowledge, To improve self management, To prevent re-injury and To improve ability to perform tasks related to life management Therapeutic Exercise to Include: Strength training, Power training, Balance training and Gait and locomotor training For the Purpose of:: To improve nutrient delivery to tissue, To increase oxygenation perfusion, To improve muscle performance and motor function, To improve ability to perform ADL's, To improve health of tissue, To decrease soft tissue restriction, To improve endurance and To improve balance Text: Thank you for the opportunity to evaluate your patient. For Medicare and Medicare HMO plans, please review the plan of care and approve (more content not included)... Normal [facility] Basic metabolic 2000 panelon 10-17-2023 Anion gap [Moles/Vol] 10 mmol/L Normal 8-15 [facility] Comment on above: Order Comment: Speci men Type: BLOOD SPECIMEN Ordering Facility: [facility] Address: [address] [place] [address] Performed By: #### 2 4321-2 #### [facility] CLIA [id number] [address] [place] [address] [place] Calcium [Mass/Vol] 9.8 mg/dL Normal 8.5-10.2 [facility] Comment on above: Order Comment: Speci men Type: BLOOD SPECIMEN Ordering Facility: [facility] Address: [address] [place] [address] Performed By: #### 2 4321-2 #### [facility] CLIA [id number] [address] [place] [address] [place] Chloride [Moles/Vol] 96 mmol/L Low 98-107 [facility] Comment on above: Order Comment: Speci men Type: BLOOD SPECIMEN Ordering Facility: [facility] Address: [address] [place] [address] Performed By: #### 2 4321-2 #### [facility] CLIA [id number] [address] [place] [address] [place] CO2 [Moles/Vol] 29 mmol/L Normal 22-30 [facility] Comment on above: Order Comment: Speci men Type: BLOOD SPECIMEN Ordering Facility: [facility] Address: [address] [place] [address] Performed By: #### 2 4321-2 #### [facility] CLIA [id number] [address] [place] [address] [place] Creatinine [Mass/Vol] 0.53 mg/dL Low 0.58-0.96 [facility] Comment on above: Order Comment: Speci men Type: BLOOD SPECIMEN Ordering Facility: [facility] Address: [address] [place] [address] Performed By: #### 2 4321-2 #### [id number] [address] [place] [address] [place] Creatinine and Glomerular filtration rate.predicted panel (S/P/Bld) 100 mL/min/1.73m??? Normal >=60 [facility] Comment on above: Order Comment: Mani hernandez Type: BLOOD SPECIMEN Ordering Facility: [facility] Address: [address] [place] [address] Result Comment: Yasmin mated Glomerular Filtration Rate (eGFR) is calculated using the 2020 CKD-EPI creatinine equation. This equation utilizes serum creatinine, sex, and age as parameters. The creatinine assay has traceable calibration to isotope dilution-mass spectrometry. Refer to KDIGO guidelines for clinical interpretation. In patients with unstable renal function, e.g. those with acute kidney injury, the eGFR may not accurately reflect actual GFR. Performed By: #### 2 4321-2 #### [facility] [id number] [address] [place] [address] [place] Glucose [Mass/Vol] 238 mg/dL High 74-99 [facility] Comment on above: Order Comment: Mani hernandez Type: BLOOD SPECIMEN Ordering Facility: [facility] Address: [address] [place] [address] Result Comment: The [place] Diabetes Association (ADA) provides guidance for cutoff values for fasting glucose and random glucose. The ADA defines fasting as no caloric intake for at least 8 hours. Fasting plasma glucose results between 100 to 125 mg/dL indicate increased risk for diabetes (prediabetes). Fasting plasma glucose results greater than or equal to 126 mg/dL meet the criteria for diagnosis of diabetes. In the absence of unequivocal hyperglycemia, results should be confirmed by repeat testing. In a patient with classic symptoms of hyperglycemia or hyperglycemic crisis, random plasma glucose results greater than or equal to 200 mg/dL meet the criteria for diagnosis of diabetes. Reference: Standards of Medical Care in Diabetes 2016, [place] Diabetes Association. Diabetes Care. 2016.39(Suppl 1). Performed By: #### 2 4321-2 #### [facility] [id number] [address] [place] [address] [place] Potassium [Moles/Vol] 4.1 mmol/L Normal 3.7-5.1 [facility] Comment on above: Order Comment: Specwong hernandez Type: BLOOD SPECIMEN Ordering Facility: [facility] Address: [address] [place] [address] Performed By: #### 2 4321-2 #### [facility] [id number] [address] [place] [address] [place] Sodium [Moles/Vol] 135 mmol/L Low 136-144 [facility] Comment on above: Order Comment: Mani hernandez Type: BLOOD SPECIMEN Ordering Facility: [facility] Address: [address] [place] [address] Performed By: #### 2 4321-2 #### [facility] [id number] [address] [place] [address] [place] Urea nitrogen [Mass/Vol] 16 mg/dL Normal 7-21 [facility] Comment on above: Order Comment: Mani hernandez Type: BLOOD SPECIMEN Ordering Facility: [facility] Address: [address] [place] [address] Performed By: #### 2 4321-2 #### [facility] [id number] [address] [place] [address] [place] 36on 10-12-2023 36 Placed call to radha last. Two patient identifers confirmed. Was able to speak to patient. All concerns in message have been addressed. No questions at this time. Call ended Normal [facility] 36 S: Patient spoke wit h CAC nurse regarding question about amount of flagyl given and if treatment is only meant for 3.5 days B: Onset of symptoms/concern today A: Medication sent in to pharmacy, only received 7 pills, supposed to take 1 in AM, 1 evening for 7 doses. Would like to know if she is only supposed to take the medication for 3.5 days, or if it's supposed to be take for 7 days instead of 7 doses, and would need more pills sent in. R: RN will send message to office for clarification. Patient would like a call back today if possible. Reason for Disposition [1] Caller has NON-URGENT medicine question about med that PCP prescribed AND [2] triager unable to answer question Protocols used: Medication Question [facility] [address] [facility] 36on 10-10-2023 36 Orders pended for doctor signature [facility] 36 Orders pended for doctor signature [place] [address] Placed call to radha last. Two patient identifers confirmed. Was able to speak to patient. All concerns in message have been addressed. No questions at this time. Call ended Pt would like referral [facility] 36 S: Patient spoke lashell salinas [facility] nurse regarding dark vaginal spotting B: Onset of symptoms/concern 6 months A: Has a thin dark perera vaginal discharge with mild odor. Seen in office on 05/29 for same complaint. 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 Denies fever, abdominal pain, rash/blisters to genitalia. Patient asking for message to be sent to office requesting prescription to be sent to pharmacy. Also requested BP check appointment on 10/25 be cancelled. R: TE to office for review and follow up. BP check appointment on 10/25 cancelled per patient request. Patient understands care advice. No further needs at this time. Patient instructed to call back with new or worsening symptoms. Reason for Disposition Abnormal color vaginal discharge (i.e., yellow, green, perera) Protocols used: Vaginal [id number] [facility] 36on 09-29-2023 36 Orders pended for doctor signature [facility] Office Visiton 09-28-2023 Follow-up visit [id number] Franky Villanueva 1955 F Date Provider Department Center 09/28/2023 [id number] GÓMEZ [facility] Family History Problem Relation Age of Onset Other Mother Comments: in 90s Coronary artery disease Father Comments: acute DC, at age 89 No Known Problems Sister Parkinsonism Brother 75 Breast cancer Mother's Sister Family Status - Relation Status Age at Mother Father Sister Alive Brother Alive Mother's Sister Level of Service:31329 MO OFFICE/OUTPATIENT ESTABLISHED MOD MDM 30 MIN Reason for Visit and Comments: Follow-up [604368] - Med check Normal [facility] Progress Noteon 09-28-2023 Progress Note [facility] [address] [facility] [address] [facility] [id number] Visit type: Established Patient Reason for Visit: Follow-up (Med check) Assessment / Plan: Franky was seen today for follow-up. Diagnoses and all orders for this visit: Lymphedema (Primary) Comments: Long discussion with need to exercise more. Elevate legs and wear leg wraps per podiatry. Call For lymphedema clinic referral no better in 1 month Orders: - Basic metabolic panel; Future - Basic metabolic panel Primary hypertension Comments: Uncontrolled, continue lisinopril and add Demadex. 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 Subjective: Patient ID: Franky Villanueva is a 68 y.o. female. HPI uncontrolled type I diabetic with history of hypertension hyperlipidemia presents for follow-up on leg edema. These are actually improved somewhat. However things are persistent with yellowness of the legs. Now seeing endocrinology and things are somewhat improving with her insulin. Of note elevated A1c for quite a long time. Recent workup for edema including venous Dopplers, echocardiogram, and chemistries have been unremarkable. She presents with her friend today who states she is not motivated and not exercising enough. Patient has elevated depression since her passed. Review of Systems denies recent earache sore throat or cough. No chest pain or palpitations. She denies PND scaliness of her legs are improving. No redness or unhealing ulcers. No abd pain vomiting or diarrhea. She does live alone and friends are checking in on her. Has been on Prozac for a while. Does not smoke or drink. Generally somewhat upbeat. She does feel weak in her legs and had a fall in May. DM has not been controlled, but she denies pain or burning of her hands or feet. No history of neuropathy. No Known Allergies Current Outpatient Medications on File Prior to Visit Medication Sig Dispense Refill atorvastatin (Lipitor) 10 MG tablet Take 1 tablet (10 mg) by mouth daily for 90 doses. 90 tablet 1 Blood Glucose Monitoring Suppl (FreeStyle Lite) device Inject 1 each under the skin 3 times daily. Use as instructed E11.9 1 each 0 cholecalciferol (Vitamin D-3) 50 MCG (2000 UT) capsule Take 2,000 Units by mouth in the morning. FLUoxetine (PROzac) 20 MG capsule Take 1 capsule (20 mg) by mouth daily. 90 capsule 1 FREESTYLE LITE test strip 1 each by Other route 3 times daily. Use as instructed E11.9 200 each 1 furosemide (Lasix) 40 MG tablet Increase to 1 in the morning and one half in the evening. 45 tablet 1 glucose blood (FREESTYLE LITE) test strip TEST BLOOD SUGARS 6 TIMES DAILY; E 10.29, IDDM, insulin glargine (Lantus SoloStar) 100 UNIT/ML pen Inject 11 Units under the skin. insulin lispro (HumaLOG) 100 UNIT/ML injection Inject subcutaneously 10 units three times daily at meals. lisinopril 40 MG tablet Take 1 tablet (40 mg) by mouth daily for 90 doses. 90 tablet 1 Multiple Vitamin (MULTIVITAMIN ADULT PO) Take by mouth. Sure Comfort Pen [place] 31G X 8 MM [facility] [place] [place] triamcinolone (Kenalog) 0.1 % cream Apply topically 2 times daily. No current facility-administered medications on file prior to visit. 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 Taylor- divert ds- due 2031 COLONOSCOPY 2006 ESOPHAGOGASTRODUODENOSC OPY 09/2021 Esophageal candidiasis Family History Problem Relation Name Age of Onset Other Mother in 90s Coronary artery disease Father acute DC, at age 94 No Known Problems Sister Parkinsonism Brother 75 Breast cancer Mother's Sister Objective: BP 138/78 Pulse 68 Temp 36.4 ?C (97.5 ?F) (Temporal) Ht 5' 5 (1.651 m) Wt 133 lb (60.3 kg) SpO2 98% BMI 22.13 kg/m? Physical Exam pleasant alert and oriented. Well-hydrated. Nonicteric. Blood pressure is too high. No thyroid or neck masses. No adenopathy or carotid bruits. Heart is regular without gallops murmu (more content not included)... Normal [facility] 36on 09-06-2023 36 Placed call to [employer]. Was able to speak to patient. All concerns in message have been addressed. No questions at this time. Call ended Normal [facility] 36on 09-05-2023 [facility] Unable to reach them by phone to discuss lab results. Left detailed message to return call to discuss results. Please release results to patient: Ultrasound of the abdomen is normal Patient was also sent a [employer] message. Normal [facility] 36 Ultrasound of the abdomen is normal Normal [facility] US ABDOMEN COMPLETEon 2023 US ABDOMEN COMPLETE Patient Name: FRANKY VILLANUEVA : 1955 Exam Date/Time: 09/01/2023 10:23 Procedure: US ABDOMEN COMPLETE Ordering Provider: RAPP JAMES Reason For Exam: leg edema, and left lower quadrant pain, with history of alcohol use EXAMINATION: Complete abdominal ultrasound. EXAM DATE AND TIME: 09/01/2023 10:23 AM EDT INDICATION: leg edema, and left lower quadrant pain, with history of alcohol use ADDITIONAL INFORMATION: 68-year-old female with lower leg edema and left lower quadrant pain with history of alcohol use presents for evaluation COMPARISON: None LIMITATIONS: As below TECHNIQUE: Ultrasound real-time scan with image documentation of the abdominal contents was performed. Color Doppler imaging was also employed. FINDINGS: LIVER Echogenicity: Normal. Surface nodularity: Not visualized. Masses (size and location): None. GALLBLADDER Size and morphology: Normal caliber and wall thickness. Cholelithiasis: None. Pericholecystic fluid: None. Sonographic Ory's sign: Negative. BILE DUCTS Intrahepatic ducts: No biliary dilation Common bile duct: Normal caliber. Diameter: 3.1 mm PANCREAS The imaged portion of the pancreatic head is unremarkable. Visualization of the body and tail is limited due to overlying bowel gas artifact. RIGHT KIDNEY Size: 11 x 4.6 x 5.8 cm Renal cortex: Normal. Hydronephrosis: None. Calculi, cysts or masses: None. LEFT KIDNEY Size: 10.9 x 5.5 x 4.6 cm Renal cortex: Normal. Hydronephrosis: None. Calculi, cysts or masses: None. SPLEEN Size: 8.6 x 2.8 x 3.3 cm Parenchyma: Unremarkable. VESSELS Aorta: Visualized portions are unremarkable. IVC: Visualized portions are unremarkable. OTHER FINDINGS None. IMPRESSION: No acute sonographic abnormality identified. Report Dictated on Electronically Signed By: Geovanni Naqvi MD Electronically Signed Date/Time: 09/05/2023 8:36 AM EDT Normal [facility] Comprehensive metabolic 2000 panelon 09-01-2023 Albumin [Mass/Vol] 4.3 g/dL Normal 3.9-4.9 [facility] Comment on above: Order Comment: Speci david Type: BLOOD SPECIMEN Ordering Facility: External Submitter Address: , , Performed By: #### 2 4323-8 #### [id number] [address] [place] [address] [place] ALP [Catalytic activity/Vol] 120 U/L Normal 34-123 [facility] Comment on above: Order Comment: Mani hernandez Type: BLOOD SPECIMEN Ordering Facility: External Submitter Address: , , Performed By: #### 2 4323-8 #### [facility] CLIA [id number] [address] [place] [address] [place] ALT [Catalytic activity/Vol] 23 U/L Normal 7-38 [facility] Comment on above: Order Comment: Mani hernandez Type: BLOOD SPECIMEN Ordering Facility: External Submitter Address: , , Performed By: #### 2 4323-8 #### [facility] CLIA [id number] [address] [place] [address] [place] Anion gap [Moles/Vol] 9 mmol/L Normal 8-15 [facility] Comment on above: Order Comment: Speci men Type: BLOOD SPECIMEN Ordering Facility: External Submitter Address: , , Performed By: #### 2 4323-8 #### [facility] CLIA [id number] [address] [place] [address] [place] AST [Catalytic activity/Vol] 19 U/L Normal 13-35 [facility] Comment on above: Order Comment: Speci men Type: BLOOD SPECIMEN Ordering Facility: External Submitter Address: , , Performed By: #### 2 4323-8 #### [facility] CLIA [id number] [address] [place] [address] [place] Bilirubin [Mass/Vol] 0.3 mg/dL Normal 0.2-1.3 [facility] Comment on above: Order Comment: Speci men Type: BLOOD SPECIMEN Ordering Facility: External Submitter Address: , , Performed By: #### 2 4323-8 #### [facility] CLIA [id number] [address] [place] [address] [place] Calcium [Mass/Vol] 9.3 mg/dL Normal 8.5-10.2 [facility] Comment on above: Order Comment: Speci men Type: BLOOD SPECIMEN Ordering Facility: External Submitter Address: , , Performed By: #### 2 4323-8 #### [facility] CLIA [id number] [address] [place] [address] [place] Chloride [Moles/Vol] 95 mmol/L Low 98-107 [facility] Comment on above: Order Comment: Speci men Type: BLOOD SPECIMEN Ordering Facility: External Submitter Address: , , Performed By: #### 2 4323-8 #### [facility] CLIA [id number] [address] [place] [address] [place] CO2 [Moles/Vol] 29 mmol/L Normal 22-30 [facility] Comment on above: Order Comment: Mani hernandez Type: BLOOD SPECIMEN Ordering Facility: External Submitter Address: , , Performed By: #### 2 4323-8 #### [facility] [id number] [address] [place] [address] [place] Creatinine [Mass/Vol] 0.55 mg/dL Low 0.58-0.96 [facility] Comment on above: Order Comment: Mani hernandez Type: BLOOD SPECIMEN Ordering Facility: External Submitter Address: , , Performed By: #### 2 4323-8 #### [facility] [id number] [address] [place] [address] [place] Creatinine and Glomerular filtration rate.predicted panel (S/P/Bld) 99 mL/min/1.73m??? Normal >=60 [facility] Comment on above: Order Comment: Mani hernandez Type: BLOOD SPECIMEN Ordering Facility: External Submitter Address: , , Result Comment: Yasmin mated Glomerular Filtration Rate (eGFR) is calculated using the 2020 CKD-EPI creatinine equation. This equation utilizes serum creatinine, sex, and age as parameters. The creatinine assay has traceable calibration to isotope dilution-mass spectrometry. Refer to KDIGO guidelines for clinical interpretation. In patients with unstable renal function, e.g. those with acute kidney injury, the eGFR may not accurately reflect actual GFR. Performed By: #### 2 4323-8 #### [facility] [id number] [address] [place] [address] [place] Glucose [Mass/Vol] 307 mg/dL High 74-99 [facility] Comment on above: Order Comment: Mani hernandez Type: BLOOD SPECIMEN Ordering Facility: External Submitter Address: , , Result Comment: The [place] Diabetes Association (ADA) provides guidance for cutoff values for fasting glucose and random glucose. The ADA defines fasting as no caloric intake for at least 8 hours. Fasting plasma glucose results between 100 to 125 mg/dL indicate increased risk for diabetes (prediabetes). Fasting plasma glucose results greater than or equal to 126 mg/dL meet the criteria for diagnosis of diabetes. In the absence of unequivocal hyperglycemia, results should be confirmed by repeat testing. In a patient with classic symptoms of hyperglycemia or hyperglycemic crisis, random plasma glucose results greater than or equal to 200 mg/dL meet the criteria for diagnosis of diabetes. Reference: Standards of Medical Care in Diabetes 2016, [place] Diabetes Association. Diabetes Care. 2016.39(Suppl 1). Performed By: #### 2 4323-8 #### [facility] CLIA [id number] [address] [place] [address] [place] Potassium [Moles/Vol] 4.2 mmol/L Normal 3.7-5.1 [facility] Comment on above: Order Comment: Mani hernandez Type: BLOOD SPECIMEN Ordering Facility: External Submitter Address: , , Performed By: #### 2 4323-8 #### [facility] [id number] [address] [place] [address] [place] Protein [Mass/Vol] 7.2 g/dL Normal 6.3-8.0 [facility] Comment on above: Order Comment: Mani hernandez Type: BLOOD SPECIMEN Ordering Facility: External Submitter Address: , , Performed By: #### 2 4323-8 #### [facility] [id number] [address] [place] [address] [place] Sodium [Moles/Vol] 133 mmol/L Low 136-144 [facility] Comment on above: Order Comment: Mani hernandez Type: BLOOD SPECIMEN Ordering Facility: External Submitter Address: , , Performed By: #### 2 4323-8 #### [facility] [id number] [address] [place] [address] [place] Urea nitrogen [Mass/Vol] 13 mg/dL Normal 7-21 [facility] Comment on above: Order Comment: Mani hernandez Type: BLOOD SPECIMEN Ordering Facility: External Submitter Address: , , Performed By: #### 2 4323-8 #### [facility] CLIA [id number] [address] [place] [address] [place] US Heart TransthoracicOrdere d By: Gautam Dennison on 09-01-2023 Ao Root Index 1.62 cm/m2 [facility] [employer] Work Phone: Aortic Root 2.7 cm [facility] [employer] Work Phone: Aortic Sinus Valsalva 2.7 cm Sum co [employer] Work Phone: Aortic Sinus Valsalva Index 1.62 cm/m2 [facility] [employer] Work Phone: E/E' Lateral 9.22 [facility] [employer] Work Phone: E/E' Ratio (Averaged) 9.80 Sum co [employer] Work Phone: E/E' Septal 10.38 [facility] [employer] Work Phone: EF BP 63 % 55 - 100 % [facility] [employer] Work Phone: Est. RA Pressure 3 mmHg [facility] [employer] Work Phone: Fractional Shortening 2D 36 % 28 - 44 % [facility] [employer] Work Phone: Interpretation and review of laboratory results Abnormal [facility] [employer] Work Phone: IVC Diameter 1.9 cm [facility] [employer] Work Phone: IVSd 0.8 cm 0.6 - 0.9 cm [facility] [employer] Work Phone: LA Diameter 3.1 cm [facility] [employer] Work Phone: LA Size Index 1.86 cm/m2 [facility] [employer] Work Phone: LA Volume 2C 45 mL 22 - 52 mL [facility] [employer] Work Phone: LA Volume 4C 26 mL 22 - 52 mL [facility] [employer] Work Phone: LA Volume A/L 40 mL [facility] [employer] Work Phone: LA Volume BP 35 mL 22 - 52 mL [facility] Work Phone: LA Volume Index 2C 27 mL/m2 16 - 34 mL/m2 [facility] Work Phone: LA Volume Index 4C 16 mL/m2 16 - 34 mL/m2 [facility] Work Phone: LA Volume Index A/L 24 mL/m2 16 - 34 mL/m2 [facility] Work Phone: LA Volume Index BP 21 ml/m2 16 - 34 ml/m2 [facility] Work Phone: LA/AO Root Ratio 1.15 [facility] Work Phone: LV E' Lateral Velocity 9 cm/s [facility] Work Phone: LV E' Septal Velocity 8 cm/s [facility] Work Phone: LV EDV A2C 62 mL [facility] Work Phone: LV EDV A4C 68 mL [facility] Work Phone: LV EDV BP 65 mL 56 - 104 mL [facility] Work Phone: LV EDV Index A2C 37 mL/m2 [facility] Work Phone: LV EDV Index A4C 41 mL/m2 [facility] Work Phone: LV EDV Index BP 39 mL/m2 [facility] Work Phone: LV Ejection Fraction A2C 61 % [facility] Work Phone: LV Ejection Fraction A4C 64 % [facility] Work Phone: LV ESV A2C 24 mL [facility] Work Phone: LV ESV A4C 24 mL [facility] Work Phone: LV ESV BP 24 mL 19 - 49 mL [facility] Work Phone: LV ESV Index A2C 14 mL/m2 [facility] Work Phone: LV ESV Index A4C 14 mL/m2 [facility] Work Phone: LV ESV Index BP 14 mL/m2 [facility] Work Phone: LV Mass 2D 142.9 g 67 - 162 g [facility] [employer] Work Phone: LV Mass 2D Index 85.6 g/m2 43 - 95 g/m2 [facility] [employer] Work Phone: LV RWT Ratio 0.49 [facility] [employer] Work Phone: LVIDd 4.5 cm 3.9 - 5.3 cm [facility] [employer] Work Phone: LVIDd Index 2.69 cm/m2 [facility] [employer] Work Phone: LVIDs 2.9 cm [facility] [employer] Work Phone: LVIDs Index 1.74 cm/m2 [facility] [employer] Work Phone: LVOT Area 2.5 cm2 [facility] [employer] Work Phone: LVOT Cardiac Output 4.2 liter/minute [facility] [employer] Work Phone: LVOT Diameter 1.8 cm [facility] [employer] Work Phone: LVOT Mean Gradient 2 mmHg [facility] [employer] Work Phone: LVOT Peak Gradient 3 mmHg [facility] [employer] Work Phone: LVOT Peak Velocity 0.9 m/s [facility] [employer] Work Phone: LVOT Stroke Volume Index 39.8 mL/m2 [facility] [employer] Work Phone: LVOT SV 66.4 ml [facility] [employer] Work Phone: LVOT VTI 26.1 cm [facility] [employer] Work Phone: LVPWd 1.1 cm Abnormal 0.6 - 0.9 cm [facility] [employer] Work Phone: MV A Velocity 0.65 m/s [facility] [employer] Work Phone: MV E Velocity 0.83 m/s [facility] Work Phone: MV E Wave Deceleration Time 200.1 ms [facility] Work Phone: MV E/A 1.28 [facility] Work Phone: PV Max Velocity 0.8 m/s [facility] Work Phone: PV Peak Gradient 3 mmHg [facility] Work Phone: RA Area 4C 35.8 mL [facility] Work Phone: RV Basal Dimension 3.4 cm [facility] Work Phone: RV Free Wall Peak S' 13 cm/s [facility] Work Phone: RV Longitudinal Dimension 5.7 cm [facility] Work Phone: RV Mid Dimension 2.7 cm [facility] Work Phone: RVOT Mean Gradient 1 mmHg [facility] Work Phone: RVOT Peak Gradient 2 mmHg [facility] Work Phone: RVOT Peak Velocity 0.7 m/s [facility] Work Phone: RVOT VTI 16.8 cm [facility] Work Phone: RVSP 35 mmHg [facility] Work Phone: Sinotubular Junction 2.2 cm [facility] Work Phone: TAPSE 2.6 cm 1.7 cm [facility] Work Phone: TR Max Velocity 2.81 m/s [facility] Work Phone: TR Peak Gradient 32 mmHg [facility] Work Phone: TR pk chung PISA 2.81 m/s [facility] Work Phone: [facility] Work Phone: US Heart Transthoracicon Left Ventricle: Left ventricle size is normal. Normal wall thickness. Normal left ventricular systolic function. The EF by visual approximation is 65%. Normal wall motion. Right Ventricle: Right ventricle size is normal. Normal systolic function. Mitral Valve: Mild (1+) regurgitation with a posterior directed jet. Tricuspid Valve: Mild (1+) regurgitation. RVSP is 35 mmHg. Right Atrium: Right atrium is mildly dilated. IVC/SVC: IVC diameter is normal and decreases greater than 50% during inspiration; therefore the estimated right atrial pressure is normal (~3 mmHg). Left Ventricle Left ventricle size is normal. Normal wall thickness. Normal left ventricular systolic function. The EF by visual approximation is 65%. Normal wall motion. Indeterminate diastolic function. Right Ventricle Right ventricle size is normal. Normal systolic function. Left Atrium Left atrium size is normal. Right Atrium Right atrium is mildly dilated. IVC/SVC IVC diameter is normal and decreases greater than 50% during inspiration; therefore the estimated right atrial pressure is normal (~3 mmHg). Mitral Valve Mildly thickened leaflets. Mildly calcified leaflets. Mild (1+) regurgitation with a posterior directed jet. No stenosis noted. Tricuspid Valve Valve structure is normal. Mild (1+) regurgitation. No stenosis noted. RVSP is 35 mmHg. Aortic Valve Trileaflet. Mildly calcified cusps. Trace regurgitation. No stenosis. Pulmonic Valve The pulmonic valve visualization is suboptimal but appears to be functioning normally. Trace regurgitation. Ascending Aorta Normal sized sinuses of Valsalva and ascending aorta. Pericardium No pericardial effusion. Septum No interatrial shunt visualized on color Doppler. Pulmonary Artery Normal pulmonary arteries. Study Details Image quality: excellent. Heart rate: 65 bpm. Blood pressure: 142/117 mmHg. No contrast was given. CV CPACS 36on 08-30-2023 36 S: Patient spoke wit h [facility] nurse regarding upcoming labs. B: 10/12/23. A: Having some vaginal drainage on panty liner, asking to come in earlier to see Dr. Gómez. Informed labs ordered was a CMP and she will get down before her appointment. R: Appointment rescheduled to a sooner appointment. Patient understands care advice. No further needs at this time. Patient instructed to call back with new or worsening symptoms. Reason for Disposition ? All other vaginal symptoms (Exception: Feels like prior yeast infection, minor abrasion, mild rash < 24 hour duration, mild itching.) Protocols used: Vaginal [id number] Normal [facility] ECG 12 leadOrdered By: Stanley Talavera on 07-12-2023 [facility] ALBUMIN/CREATININE RATIO, ULICES VALEon 06-16-2023 Albumin DL <= 20 mg/L (U) [Mass/Vol] 62.3 mg/L [facility] Albumin/Creatinine (U) [Mass ratio] 181 mg/g High NINF - 30 mg/g [facility] Comment on above: Adult Male and Femal e Nephrotic Criteria: <30 mg/g is considered normal to mildly increased 30-300 mg/g is considered moderately increased >300 mg/g is considered severely increased KDIGO. (2013). KDIGO 2012 Clinical Practice Guideline for the Evaluation and Management of Chronic Kidney Disease. Official Journal of the International Society of Nephrology, 3(1), 1-150. Creatinine (U) [Mass/Vol] 34.4 mg/dL 20.0 - 300.0 mg/dL [facility] Interpretation and review of laboratory results Abnormal [facility] HEMOGLOBIN A1C (POC)on 06-15 HbA1c (Bld) [Mass fraction] 9.6 % Abnormal 4.3 - 5.6 % [facility] Comment on above: Location:[facility], [address] [place] [address], [id number] Point of care (POC) Hemoglobin A1c (HGBA1C) testing is intended to assess glucose control and provide a management tool for patients known to have diabetes and their healthcare providers. Target HGBA1C levels may depend on specific clinical circumstances. POC HGBA1C is not intended for use as a diagnostic or screening test; laboratory-based testing should be used for diagnostic purposes. The following information is supplemental and may not be applicable to specific diabetes management situations: The POC device picu nurse provides a normal range of 4.2% to 6.5% for the HGBA1C POC test. However, the [place] Diabetes Association guidelines indicate that patients with HGBA1C in the range of 5.7% to 6.4% are at increased risk for development of diabetes and that intervention by lifestyle modification may be beneficial. A HGBA1C level greater than or equal to 6.5% is considered diagnostic of diabetes, pending confirmatory testing. Use of HGBA1C testing to evaluate glucose control may not be appropriate for patients with hemoglobin variants or other conditions (e.g. anemia) that alter red blood cell lifespan. Interpretation and review of laboratory results Abnormal [facility] Lipid 1996 panelon 4 Cholesterol [Mass/Vol] 210 mg/dL High NINF - 200 mg/dL [facility] Comment on above: <200 mg/dL, Desirabl e 200-239 mg/dL, Borderline high >239 mg/dL, High Cholesterol in HDL [Mass/Vol] 132 mg/dL 39 - PINF mg/dL [facility] Comment on above: 40-59 mg/dL, Accepta ble >59 mg/dL, High: Negative risk factor for coronary heart disease <40 mg/dL, Low: Positive risk factor for coronary heart disease Cholesterol in LDL [Mass/Vol] 69 mg/dL NINF - 100 mg/dL [facility] Comment on above: <100 mg/dL, Optimal 100-129 mg/dL, Near optimal/above optimal 130-159 mg/dL, Borderline high 160-189 mg/dL, High >189 mg/dL, Very high Secondary prevention optimal LDL Cholesterol levels are recommended to be < 70 mg/dL Cholesterol in LDL/Cholesterol in HDL [Mass ratio] 0.52 {ratio} NINF - 2.54 [facility] Comment on above: Reference: 1. National Cholesterol Education Program ATP III Guideline At-A-Glance Quick Desk Reference: National Heart, Lung, and Blood [place]. National Institutes of Health. 2001: NIH Publication No. 01-3305. 2. An International Atherosclerosis Society position paper: global recommendations for the management of dyslipidemia: executive summary, Atherosclerosis. 2014: 232(2):410-413. Cholesterol in VLDL [Mass/Vol] 9 mg/dL NINF - 30 mg/dL [facility] Cholesterol non HDL [Mass/Vol] 78 mg/dL NINF - 130 mg/dL [facility] Comment on above: <130 mg/dL, Optimal 130-159 mg/dL, Near optimal/above optimal 160-189 mg/dL, Borderline high 190-219 mg/dL, High >219 mg/dL, Very high Secondary prevention optimal non HDL Cholesterol levels are recommended to be <100 mg/dL Cholesterol.total/Natalia sterol in HDL [Mass ratio] 1.59 {ratio} NINF - 5.10 [facility] Fasting Time 6 hrs [facility] Interpretation and review of laboratory results Abnormal [facility] Triglyceride [Mass/Vol] 45 mg/dL NINF - 150 mg/dL [facility] Comment on above: <150 mg/dL, Normal 150-199 mg/dL, Borderline high 200-499 mg/dL, High >499 mg/dL, Very high [facility] No Panel Informationon 06-01 No evidence of left or right lower extremity deep venous thrombosis. Report Dictated on Electronically Signed By: Amadeo Tony MD Electronically Signed Date/Time: 06/02/2023 1:31 PM EDT [facility] Patient Name: FRANKY VILLANUEVA : 1955 Exam Date/Time: 06/02/2023 13:19 Procedure: VASC US LOWER EXTREMITY VENOUS DUPLEX BILATERAL Ordering Provider: GÓMEZ EUGENE Reason For Exam: leg swelling ULTRASOUND LOWER EXTREMITY VEINS BILATERAL: CLINICAL INDICATION: Bilateral leg swelling TECHNIQUE: Ultrasonographic evaluation, including color flow and Doppler duplex sonography, of the veins of the left and right lower extremities was performed to evaluate for the clinically suspected deep venous thrombosis. The study was performed on a portable basis. COMPARISON: None FINDINGS: Right: Color flow imaging demonstrates normal flow. Two-dimensional imaging demonstrates no evidence of filling defect or limited compressibility of the common femoral, superficial femoral, popliteal vein and visualized calf veins. Doppler interrogation demonstrates normal phasic flow with respiration with adequate augmentation and normal response to Valsalva maneuver. Left: Color flow imaging demonstrates normal flow. Two-dimensional imaging demonstrates no evidence of filling defect or limited compressibility of the common femoral, superficial femoral, popliteal vein and visualized calf veins. Doppler interrogation demonstrates normal phasic flow with respiration with adequate augmentation and normal response to Valsalva maneuver. [facility] Amadeo Tony MD - 06/02/2023 Patient Name: FRANKY VILLANUEVA : 1955 Exam Date/Time: 06/02/2023 13:19 Procedure: VASC US LOWER EXTREMITY VENOUS DUPLEX BILATERAL Ordering Provider: GÓMEZ EUGENE Reason For Exam: leg swelling ULTRASOUND LOWER EXTREMITY VEINS BILATERAL: CLINICAL INDICATION: Bilateral leg swelling TECHNIQUE: Ultrasonographic evaluation, including color flow and Doppler duplex sonography, of the veins of the left and right lower extremities was performed to evaluate for the clinically suspected deep venous thrombosis. The study was performed on a portable basis. COMPARISON: None FINDINGS: Right: Color flow imaging demonstrates normal flow. Two-dimensional imaging demonstrates no evidence of filling defect or limited compressibility of the common femoral, superficial femoral, popliteal vein and visualized calf veins. Doppler interrogation demonstrates normal phasic flow with respiration with adequate augmentation and normal response to Valsalva maneuver. Left: Color flow imaging demonstrates normal flow. Two-dimensional imaging demonstrates no evidence of filling defect or limited compressibility of the common femoral, superficial femoral, popliteal vein and visualized calf veins. Doppler interrogation demonstrates normal phasic flow with respiration with adequate augmentation and normal response to Valsalva maneuver. IMPRESSION: No evidence of left or right lower extremity deep venous thrombosis. Report Dictated on Electronically Signed By: Amadeo Tony MD Electronically Signed Date/Time: 06/02/2023 1:[address] [facility] XR Chest 2 Viewson No acute consolidati ve process. Report Dictated on Electronically Signed By: Allen Spangler DR Electronically Signed Date/Time: 06/02/2023 11:38 PM EDT [facility] Patient Name: FRANKY VILLANUEVA : 1955 Exam Date/Time: 06/02/2023 13:24 Procedure: XR CHEST 2 VIEWS Ordering Provider: GÓMEZ EUGENE Reason For Exam: edema, dec BS right base Clinical History: edema, dec BS right base Comparison: None Technique: PA and lateral radiographs were obtained of the chest. Findings: The heart size and mediastinal contours are normal. Pulmonary vascularity is normal and there is no pneumothorax. Hyperinflation of the lungs. The lungs and pleural spaces are otherwise clear. No displaced rib fractures seen.Postsurgical changes overlying the right breast and axilla. [facility] Allen Spangler MD - 06/02/2023 Patient Name: FRANKY VILLANUEVA : 1955 Exam Date/Time: 06/02/2023 13:24 Procedure: XR CHEST 2 VIEWS Ordering Provider: GÓMEZ EUGENE Reason For Exam: edema, dec BS right base Clinical History: edema, dec BS right base Comparison: None Technique: PA and lateral radiographs were obtained of the chest. Findings: The heart size and mediastinal contours are normal. Pulmonary vascularity is normal and there is no pneumothorax. Hyperinflation of the lungs. The lungs and pleural spaces are otherwise clear. No displaced rib fractures seen.Postsurgical changes overlying the right breast and axilla. IMPRESSION: No acute consolidative process. Report Dictated on Electronically Signed By: Allen Spangler DR Electronically Signed Date/Time: 06/02/2023 11:[address] [facility] Radiology Study observation (narrative) [facility] XR Chest 2 ViewsOrdered By: Allen Spangler on 06-02-2023 [facility] Work Phone: Laboratory - Microbiology an d Antimicrobial susceptibilityon 05-31-2023 Bacteria identified Aer cx Nom (Genital specimen) [facility] Comment on above: CULTURE, GENITAL Micro Number: [id number] Test Status: Final Specimen Source: Vagina Specimen Quality: Inadequate Result: Test not performed. Transport device is not acceptable for test requested. No Panel Informationon 05-30 [facility] Thin prep Papanicolaou smear with manual screeningOrdered By: Rajwinder Naik on 05-27-2023 Thin prep Papanicolaou smear with manual screening 233 mg/dL 74-106 [facility] Comment on above: MANAGEMENT OF PATIEN T CARE PER NURSING PROTOCOL HEMOGLOBIN A1C (POC)on 11-08 HbA1c (Bld) [Mass fraction] 9.1 % Abnormal 4.2 - 5.6 % [facility] 25-hydroxyvitamin D3 [Mass/V ol]on 10-13-2022 Interpretation and review of laboratory results Abnormal [facility] CBC panel Auto (Bld)on 10-13 Erythrocyte distribution width (RBC) [Ratio] 12.7 % 11.0 - 15.0 % [facility] Hematocrit (Bld) [Volume fraction] 39.0 % 35.0 - 45.0 % [facility] Hemoglobin (Bld) [Mass/Vol] 13.1 g/dL 11.7 - 15.5 g/dL [facility] MCH (RBC) [Entitic mass] 30.7 pg 27.0 - 33.[address] [facility] MCHC (RBC) [Mass/Vol] 33.6 g/dL 32.0 - 36.0 g/dL [facility] MCV (RBC) [Entitic vol] 91.3 fL 80.0 - 100.[address] [facility] Platelet mean volume (Bld) [Entitic vol] 10.2 fL 7.5 - 12.[address] [facility] Platelets (Bld) [#/Vol] 346 10*3/uL [facility] RBC (Bld) [#/Vol] 4.27 10*6/uL [facility] WBC (Bld) [#/Vol] 6.2 10*3/uL [facility] Comprehensive metabolic 1998 panelon 10-13-2022 Albumin [Mass/Vol] 4.4 g/dL 3.6 - 5.1 g/dL [facility] Albumin/Globulin [Mass ratio] 1.7 {ratio} [facility] ALP [Catalytic activity/Vol] 87 U/L 37 - 153 U/L [facility] ALT [Catalytic activity/Vol] 20 U/L 6 - 29 U/L [facility] AST [Catalytic activity/Vol] 21 U/L 10 - 35 U/L [facility] Bilirubin [Mass/Vol] 0.6 mg/dL 0.2 - 1 .2 mg/dL [facility] Calcium [Mass/Vol] 9.7 mg/dL 8.6 - 10. 4 mg/dL [facility] Chloride [Moles/Vol] 98 mmol/L 98 - 11 0 mmol/L [facility] CO2 [Moles/Vol] 30 mmol/L 20 - 32 mmol/L [facility] Creatinine [Mass/Vol] 0.65 mg/dL 0.50 - 1.05 mg/dL [facility] GFR/1.73 sq M.predicted among non-blacks MDRD (S/P/Bld) [Vol rate/Area] 96 mL/min/{1.73_m2} > OR = 60 mL/min/1.73m 2 [facility] Globulin (S) [Mass/Vol] 2.6 g/dL S [facility] Glucose [Mass/Vol] 78 mg/dL 65 - 99 mg/dL [facility] Comment on above: Fasting reference interval Potassium [Moles/Vol] 5.0 mmol/L 3.5 - 5.3 mmol/L [facility] Protein [Mass/Vol] 7.0 g/dL 6.1 - 8.1 g/dL [facility] Sodium [Moles/Vol] 136 mmol/L 135 - 146 mmol/L [facility] Urea nitrogen [Mass/Vol] 12 mg/dL 7 - 25 mg/dL [facility] Urea nitrogen/Creatinine [Mass ratio] SEE NOTE: [facility] Comment on above: Not Reported: BUN an d Creatinine are within reference range. Folateon 10-13-2022 Folate [Mass/Vol] 18.3 ng/mL [facility] ealt Comment on above: Reference Range Low: <3.4 Borderline: 3.4-5.4 Normal: >5.4 No Panel Informationon 10-13 [facility] TSHon 10-13-2022 TSH Qn 4.00 m[IU]/L [facility] Vitamin B12on 10-13-2022 Cobalamin (Vitamin B12) [Mass/Vol] 413 pg/mL 200 - 1100 pg/mL [facility] Vitamin D Deficiency Screeni ng (Vit D 25)on 10-13-2022 25-hydroxyvitamin D3 [Mass/Vol] 10 ng/mL Low 30 - 100 ng/mL [facility] Comment on above: Vitamin D Status 25- [place] Vitamin D: Deficiency: <20 ng/mL Insufficiency: 20 - 29 ng/mL Optimal: > or = 30 ng/mL For 25-OH Vitamin D testing on patients on D2-supplementation and patients for whom quantitation of D2 and D3 fractions is required, the QuestAssureD() 25-OH VIT D, (D2,D3), LC/MS/MS is recommended: order code 86740 (patients >2yrs). See Note 1 Note 1 For additional information, please refer to http://education.Cinema One.WO Funding/faq/LWH004 (This link is being provided for informational/ educational purposes only.) [place] 06-21-2022 [facility] HNO ID: [id number] Author: Mammography Coordinator Service: ? Author Type: Physician Type: Letter Filed: 06/22/2022 11:33 PM Note Text: [facility] [address] [place] [address] June 21, 2022 PID: [id number] Franky Villanueva [address] [place] [address] Dear Ms. Villanueva, We are pleased to inform you that the results of your recent breast imaging exam on 06/20/2022 are normal. Early detection of cancer is very important. We also understand recommendations regarding breast cancer screening are controversial. Please discuss with your primary care provider which strategy is best for you and whether a mammogram is right for you. Your imaging studies and report will be kept on file at [facility] as part of your permanent medical record and are available for your continuing care. Thank you for allowing us to help in meeting your health care needs. Sincerely, Dr. Felipe Interpreting Radiologist [facility] (Normal over 40) Normal [facility] SCREENINGon 06-20-2022 [facility] SCREENING * * *Final Report* * * DATE OF EXAM: Jun 20 2022 8:51AM AAW [id number] - [facility] SCREENING / PROCEDURE REASON: screen * * * * Physician Interpretation * * * * #[id number] - [facility] SCREENING BILATERAL DIGITAL SCREENING MAMMOGRAM WITH CAD: 06/20/2022 HISTORY: Screen / Screening Mammogram-Patient reports NO symptoms. RESULT: TECHNIQUE: The study was acquired using full field digital technology and interpreted from soft copy. Current study was also evaluated with a Computer Aided Detection (CAD). Comparison is made to exams dated: 10/05/2020 mammogram, 09/17/2018 mammogram, and 03/19/2018 mammogram - [facility]. The tissue of both breasts is extremely dense, which lowers the sensitivity of mammography. There are benign post operative findings in the right breast. No significant masses, calcifications, or other findings are seen in either breast. There has been no significant interval change. IMPRESSION: BENIGN FINDING There is no mammographic evidence of malignancy. A 1 year screening mammogram is recommended. Reba cabezas/lynn:06/21/2022 12:25:19 Chicken Hatchery Helper(s): RT Marilyn(R)(M), [facility] letter sent: Normal over 40 Mammogram BI-RADS: 2 Benign finding Multiple national specialty organizations have released breast cancer screening guidelines for women at average risk for developing breast cancer - guidelines that are based on both evidence and opinion, yet differ on when to start and how often to screen for breast cancer. With representation from Breast Imaging, Internal Medicine, Women's Health, Family Medicine, and Medical/Surgical Oncology, the [facility] has carefully reviewed the data and reached the following consensus: 1) All women should engage in shared decision-making with their providers to decide when to start and how often to screen; 2) All women should have the opportunity to start screening mammography at age 40; 3) For women ages 45-55, we recommend annual screening mammograms; 4) For women ages 55 and over, we support both the transition from an annual to a biennial interval if this aligns more with patient's values and preferences, or continuation with annual screening; 5) All women should discuss with their providers when to stop screening mammograms. Sheet Metal Apprentice: Lynn Transcribe Date/Time: Jun 20 2022 8:34A Dictated by : REBA FELIPE MD This examination was interpreted and the report reviewed and electronically signed by: REBA FELIPE MD on Jun 21 2022 12:25PM EST [id number] Normal [facility] DXA-AXIAL SKELETONon 023 LOWEST T-SCORE -1.5 [facility] HEMOGLOBIN A1C (POC)on 01-21 HbA1c (Bld) [Mass fraction] 9.6 % Abnormal 4.2 - 5.6 % [facility] Glucose Glucometer (BldC) [M ass/Vol]on 10-20-2021 Glucose [Mass/Vol] 241 mg/dL 74-106 [facility] Work Phone: Comment on above: MANAGEMENT OF PATIEN T CARE PER NURSING PROTOCOL HEMOGLOBIN A1C (POC)on 05-25 HbA1c (Bld) [Mass fraction] 9.4 % Abnormal 4.2 - 5.6 % [facility] EMG REPORTOrdered By: Td Hirsch on 12-14-2020 Td Hirsch, - 12/14/2020 1:39 PM EDT PATIENT: KAYFRANKY FIGUEROA DATE OF SERVICE: 12/14/2020 ORDER NUMBER: DATE OF : 1955 AGE: 65 ADMITTING PHYSICIAN: Allen Hardin JR, MD ATTENDING PHYSICIAN: Allen Hardin JR, MD DICTATING PHYSICIAN: Td Hirsch DO NERVE CONDUCTION TEST/EMG FACILITY: [facility] REFERRING PHYSICIAN: Allen Hardin JR, MD TEST #: [id number] TEST-NERVE CONDUCTION TEST/EMG: LEFT ARM: RIGHT ARM: LEFT LEG: X RIGHT LEG: X HISTORY: The patient presents with pain and numbness in the bilateral legs and feet. NERVE CONDUCTION STUDIES: The left sural sensory nerve action potential was absent. The right sural sensory nerve action potential was absent. The right common peroneal to EDB compound muscle action potential was remarkable for a decreased conduction velocity. The left common peroneal to EDB compound muscle action potential was absent. The right tibial to AH compound muscle action potential was remarkable for a decreased amplitude and decreased conduction velocity. The left tibial to AH compound muscle action potential was remarkable for a decreased amplitude and a decreased conduction velocity. The left deep peroneal to tibialis anterior compound muscle action potential was unremarkable. The right deep peroneal to tibialis anterior compound muscle action potential was remarkable for a mildly decreased conduction velocity. Concentric needle EMG was performed in the bilateral lower extremities. No increased insertional activity, fibrillation potentials, fasciculation potentials, or positive sharp waves were seen in any muscle tested. Motor unit action potentials demonstrated normal morphology and firing pattern throughout. IMPRESSION: This is an abnormal study. 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 There is no evidence of an active right- or left-sided lumbosacral radiculopathy on this study. The absent common peroneal to EDB response on the left is likely secondary to the significant atrophy of the EDB on the left foot secondary to the Underlying large-fiber peripheral neuropathy. The proximal response for the left deep peroneal nerve was symmetric to the right deep peroneal nerve response. DOD:12/14/2020 12:08 P AAC/vjw DOT :12/14/2020 01:39 P Job Number: [id number] Document Number: [id number] cc: Allen Hardin JR, MD [address] [facility] [address] [facility] [address] [facility] Work Phone: [facility] Work Phone: BD DXA - AXIAL SKELETONon BD DXA - AXIAL SKELETON * * *Final Repor t* * * DATE OF EXAM: Sep 23 2019 10:29AM KISHAN 0804 - BD DXA - AXIAL SKELETON / PROCEDURE REASON: multiple diagnoses * * * * Physician Interpretation * * * * EXAMINATION: DXA BONE DENSITOMETRY TECHNIQUE: Low dose AP spine and hip images DXA Model: [employer] [facility], tuul [id number] Date Scanned: 09/23/2019 10:29 AM COMPARISON: None that are pertinent for accurate comparison CLINICAL HISTORY: Osteopenia of multiple sites Asymptomatic postmenopausal status Disorder of bone and cartilage Disorder of bone and cartilage Family Hist. (Parent hip fracture) TECHNICAL LIMITATIONS: None RESULTS: Lumbar spine (L1-L4): 1.112 g/cm2 , T-score -0.6, Z-score 1.4 . Left Femoral Neck: 0.899 g/cm2 , T-score-1., Z-score0.7 . Left Total Hip: 0.853 g/cm2 , T-score-1.2, Z-score 0.2 . Right Femoral Neck: 0.945 g/cm2 , T-score -0.7, Z-score1. . Right Total Hip: 0.922 g/cm2 , T-score-0.7, Z-score 0.8 . IMPRESSION: THE LOWEST T-SCORE IS -1.2 IN THE LEFT HIP 1) DIAGNOSIS (based on BMD alone): OSTEOPENIA . 10-year Fracture Risk (FRAX): Major osteoporotic fracture risk 13.7 % Hip fracture risk 0.6 % Follow-up scans should always be done on the same machine for accurate comparison. FOR MORE INFORMATION: [facility] Osteoporosis and Metabolic Bone Disease: www.ccf.org/arthritis/o steo National Osteoporosis Foundation: www.nof.org International Society of Clinical Densitometry www.iscd.org [employer] CLASSIFICATION OF BONE MASS: CLASSIFICATION T-SCORE Normal Greater than -1 Low Bone Mass Between -1 and -2.5 (Osteopenia) Osteoporosis Less than or equal to -2.5 Sheet Metal Apprentice: SANIA Transcribe Date/Time: Sep 23 2019 11:26A Dictated by : ALLEN TERRY MD This examination was interpreted and the report reviewed and electronically signed by: ALLEN TERRY MD on Sep 23 2019 11:27AM EST [id number] [facility] PROGRESSon 09-23-2019 PROGRESS HNO ID: [id number] Author: Leah Barahona (Rt) Service: Radiology Author Type: Event Marketing Intern Type: Progress Notes Filed: 09/23/2019 10:32 AM Note Text: Radiology Service Progress Note PATIENT NAME: Franky Villanueva DATE OF SERVICE: September 23, 2019 TIME: 10:32 AM PATIENT IDENTITY VERIFICATION COMPLETED USING TWO (2) IDENTIFIERS: Name and Date of confirmed by patient verbally. FALL SCREENING: Has the patient had 2 falls in the last year or 1 fall with injury or currently using an Ambulatory Assistive Device (Walker, Cane, Wheelchair, Crutches, etc.)? No PATIENT GENDER DATA: Female. status: : No status: NO. PATIENT RELEVANT IMPLANT DATA REVIEWED: Not Applicable RADIOLOGY DEPARTMENT: Bone Density PERIPHERAL IV DATA: Not applicable SIGNED BY: RT Jun September 23, 2019 10:[address] [facility] MAMM US BREAST LTD RIGHTon 0 03-19-2018 MAMM US BREAST LTD RIGHT Performed at [facility] APPROVED BY: DES HENSON MD #[id number] - MAMMOGRAM DIAG WITH CAD IF PERFORMED BILATERAL #[id number] - MAMM US BREAST LTD RIGHT BILATERAL DIGITAL DIAGNOSTIC MAMMOGRAM WITH CAD WITH MEDIOLATERAL OBLIQUE CRANIOCAUDAL: 03/19/2018 CLINICAL: Patient presents with right breast lump. Patient presents with palpable abnormality felt by referring physician. Comparison is made to exams dated: 02/07/2017 mammogram, 06/16/2016 mammogram - [facility], 04/13/2016 mammogram - [facility], and 02/05/2015 mammogram - [facility] [place]. The tissue of both breasts is extremely dense, which lowers the sensitivity of mammography. Current study was also evaluated with a Computer Aided Detection (CAD) system. The right breast has post-operative findings due to lumpectomy. There are multiple coarse round calcifications in the left breast superior lateral quadrant anterior depth. These are seen in additional views. No other significant masses, calcifications, or other findings are seen in either breast. IMPRESSION: INCOMPLETE: NEEDS ADDITIONAL IMAGING EVALUATION The multiple coarse round calcifications in the left breast superior lateral quadrant anterior depth most likely are sclerosing adenosis and are probably benign. A follow-up in 6 months is recommended. There are no abnormalities seen in the right breast to correspond with the palpable abnormalities at 10, 11, and 12 o'clock, however, ultrasound is recommended. LIMITED ULTRASOUND OF RIGHT BREAST: 03/19/2018 Comparison is made to exams dated: 02/07/2017 mammogram, 06/16/2016 mammogram - [facility], 04/13/2016 mammogram - [facility], and 02/05/2015 mammogram - [facility]. Color flow and real-time ultrasound of the right breast 10-11 o'clock region were performed. Perera scale images of the real-time examination were reviewed. There are no solid or cystic masses identified in the right upper quadrant in the area described by the clinician as palpable. There are post lumpectomy changes identified . Special attention was given to the 11-10:00 position of the right breast. IMPRESSION: BENIGN There is no sonographic evidence of malignancy. A follow-up left mammogram in 6 months is recommended to demonstrate stability. Dr. Des gagnon/lynn:03/19/2018 11:14:11 Chicken Hatchery Helper(s): Loly IniguezS., [facility]; RT Madai(R)(M), [facility] OVERALL STUDY BIRADS: 3 Probably benign Normal [facility] MAMMOGRAM DIAG WITH CAD IF P ERFORMED BILATERALon 03-19-2018 MAMMOGRAM DIAG WITH CAD IF PERFORMED BILATERAL Performed at [facility] APPROVED BY: DES HENSON MD #[id number] - MAMMOGRAM DIAG WITH CAD IF PERFORMED BILATERAL #[id number] - MAMM US BREAST LTD RIGHT BILATERAL DIGITAL DIAGNOSTIC MAMMOGRAM WITH CAD WITH MEDIOLATERAL OBLIQUE CRANIOCAUDAL: 03/19/2018 CLINICAL: Patient presents with right breast lump. Patient presents with palpable abnormality felt by referring physician. Comparison is made to exams dated: 02/07/2017 mammogram, 06/16/2016 mammogram - [facility], 04/13/2016 mammogram - [facility], and 02/05/2015 mammogram - [facility]. The tissue of both breasts is extremely dense, which lowers the sensitivity of mammography. Current study was also evaluated with a Computer Aided Detection (CAD) system. The right breast has post-operative findings due to lumpectomy. There are multiple coarse round calcifications in the left breast superior lateral quadrant anterior depth. These are seen in additional views. No other significant masses, calcifications, or other findings are seen in either breast. IMPRESSION: INCOMPLETE: NEEDS ADDITIONAL IMAGING EVALUATION The multiple coarse round calcifications in the left breast superior lateral quadrant anterior depth most likely are sclerosing adenosis and are probably benign. A follow-up in 6 months is recommended. There are no abnormalities seen in the right breast to correspond with the palpable abnormalities at 10, 11, and 12 o'clock, however, ultrasound is recommended. LIMITED ULTRASOUND OF RIGHT BREAST: 03/19/2018 Comparison is made to exams dated: 02/07/2017 mammogram, 06/16/2016 mammogram - [facility], 04/13/2016 mammogram - [facility], and 02/05/2015 mammogram - [facility]. Color flow and real-time ultrasound of the right breast 10-11 o'clock region were performed. Perera scale images of the real-time examination were reviewed. There are no solid or cystic masses identified in the right upper quadrant in the area described by the clinician as palpable. There are post lumpectomy changes identified . Special attention was given to the 11-10:00 position of the right breast. IMPRESSION: BENIGN There is no sonographic evidence of malignancy. A follow-up left mammogram in 6 months is recommended to demonstrate stability. Dr. Des gagnon/lynn:03/19/2018 11:14:11 Chicken Hatchery Helper(s): Amara Frederick R.D.M.S., [facility]; RT Madai(Ravinder)(M), [facility] OVERALL STUDY BIRADS: 3 Probably benign Normal [facility] Vital Signs Date Time Vital Sign Value Performing Clinician Facility 09-11-2024 08:21-0400 Body height 165.[address] Norberto Gómez DO Work Phone: [facility] 09-11-2024 08:21-0400 Body mass index (BMI) [Ratio] 21.4 kg/m2 Dr. Norberto Gómez DO Work Phone: [facility] 09-11-2024 08:21-0400 Body weight 58.[address] Norberto Gómez DO Work Phone: [facility] 09-11-2024 08:21-0400 Diastolic blood pressure 67 mm[Hg] Dr. Norberto Gómez DO Work Phone: [facility] 09-11-2024 08:21-0400 Heart rate 74 /min Dr. Norberto Gómez DO Work Phone: [facility] 09-11-2024 08:21-0400 SaO2% (BldA) [Mass fraction] 99 % Dr. Norberto Gómez DO Work Phone: [facility] 09-11-2024 08:21-0400 Systolic blood pressure 145 mm[Hg] Dr. Norberto Gómez DO Work Phone: [facility] 08-14-2024 13:30-0400 Body height 165.1 cm Prisca Garner MD Work Phone: [facility] 08-14-2024 13:30-0400 Body mass index (BMI) [Ratio] 22.13 kg/m2 Prisca Garner MD Work Phone: [facility] 08-14-2024 13:30-0400 Body weight 60.33 kg Prisca Garner MD Work Phone: [facility] 08-14-2024 13:30-0400 Diastolic blood pressure 68 mm[Hg] Prisca Garner MD Work Phone: [facility] 08-14-2024 13:30-0400 Systolic blood pressure 124 mm[Hg] Prisca Garner MD Work Phone: [facility] 06-26-2024 09:43-0400 Body mass index (BMI) [Ratio] 22.21 kg/m2 Prisca Garner MD Work Phone: [facility] 06-26-2024 09:43-0400 Body weight 60.54 kg Prisca Garner MD Work Phone: [facility] 06-26-2024 09:43-0400 Diastolic blood pressure 60 mm[Hg] Prisca Garner MD Work Phone: [facility] 06-26-2024 09:43-0400 Heart rate 73 /min Prisca Garner MD Work Phone: [facility] 06-26-2024 09:43-0400 Systolic blood pressure 137 mm[Hg] Prisca Garner MD Work Phone: [facility] 06-20-2024 13:43-0400 Body height 165.[address] Norberto Gómez DO Work Phone: [facility] 06-20-2024 13:43-0400 Body mass index (BMI) [Ratio] 22.5 kg/m2 Dr. Norberto Gómez DO Work Phone: [facility] 06-20-2024 13:43-0400 Body weight 61.[address] Norberto Gómez DO Work Phone: [facility] 06-20-2024 13:43-0400 Diastolic blood pressure 66 mm[Hg] Dr. Norberto Gómez DO Work Phone: [facility] 06-20-2024 13:43-0400 Heart rate 79 /min Dr. Norberto Gómez DO Work Phone: [facility] 06-20-2024 13:43-0400 SaO2% (BldA) [Mass fraction] 98 % Dr. Norberto Gómez DO Work Phone: [facility] 06-20-2024 13:43-0400 Systolic blood pressure 136 mm[Hg] Dr. Norberto Gómez DO Work Phone: [facility] 06-19-2024 11:03-0400 Diastolic blood pressure 64 mm[Hg] Michael Rodriguez MD Work Phone: [facility] Comment on above: manual right arm 06-19-2024 11:03-0400 Systolic blood pressure 126 mm[Hg] Michael Rodriguez MD Work Phone: [facility] Comment on above: manual right arm 06-19-2024 10:38-0400 Body mass index (BMI) [Ratio] 22.42 kg/m2 Michael Rodriguez MD Work Phone: [facility] 06-19-2024 10:38-0400 Body weight 61.1 kg Michael Rodriguez MD Work Phone: [facility] 06-19-2024 10:38-0400 Heart rate 71 /min Michael Rodriguez MD Work Phone: [facility] 06-19-2024 10:38-0400 SaO2% (BldA) [Mass fraction] 99 % Michael Rodriguez MD Work Phone: [facility] 05-29-2024 11:10-0400 Body height 165.1 cm Prisca Garner MD Work Phone: [facility] 05-29-2024 11:10-0400 Body mass index (BMI) [Ratio] 22.13 kg/m2 Prisca Garner MD Work Phone: [employer] [facility] 05-29-2024 11:10-0400 Body weight 60.33 kg Prisca Garner MD Work Phone: [facility] 05-29-2024 11:10-0400 Diastolic blood pressure 70 mm[Hg] Prisca Garner MD Work Phone: [employer] [facility] 05-29-2024 11:10-0400 Heart rate 73 /min Prisca Garner MD Work Phone: [employer] [facility] 05-29-2024 11:10-0400 Systolic blood pressure 135 mm[Hg] Prisca Garner MD Work Phone: [employer] [facility] 04-29-2024 15:48-0400 Diastolic blood pressure 78 mm[Hg] Norberto Gómez DO Work Phone: [employer] [facility] 04-29-2024 15:48-0400 Heart rate 68 /min Norberto Gómez DO Work Phone: [facility] 04-29-2024 15:48-0400 Systolic blood pressure 144 mm[Hg] Norberto Gómez DO Work Phone: [facility] 04-29-2024 15:04-0400 Body height 165.1 cm Norberto Gómez DO Work Phone: [facility] 04-29-2024 15:04-0400 Body mass index (BMI) [Ratio] 23.96 kg/m2 Norberto Gómez DO Work Phone: [facility] 04-29-2024 15:04-0400 Body temperature 98.71 [degF] Norberto Gómez DO Work Phone: [facility] 04-29-2024 15:04-0400 Body weight 65.32 kg Norberto Gómez DO Work Phone: [facility] 04-29-2024 15:04-0400 SaO2% (BldA) [Mass fraction] 97 % Norberto Gómez DO Work Phone: [facility] 04-16-2024 11:10-0500 Diastolic blood pressure 68 mm[Hg] [facility] Schedule [facility] 04-16-2024 11:10-0500 Heart rate 64 /min [facility] Schedule [facility] 04-16-2024 11:10-0500 Systolic blood pressure 136 mm[Hg] [facility] Schedule [facility] 04-16-2024 10:07-0500 Body height 165.1 cm Norberto Gómez DO Work Phone: [facility] 04-16-2024 10:07-0500 Body mass index (BMI) [Ratio] 23.96 kg/m2 Norberto Gómez DO Work Phone: [facility] 04-16-2024 10:07-0500 Body weight 65.32 kg Norberto Gómez DO Work Phone: [facility] 03-20-2024 11:06-0500 Diastolic blood pressure 84 mm[Hg] Norberto Gómez DO Work Phone: [facility] 03-20-2024 11:06-0500 Systolic blood pressure 144 mm[Hg] Norberto Gómez DO Work Phone: [facility] 03-20-2024 10:38-0500 Body height 165.1 cm Norberto Gómez DO Work Phone: [facility] 03-20-2024 10:38-0500 Body mass index (BMI) [Ratio] 24.03 kg/m2 Norberto Gómez DO Work Phone: [facility] 03-20-2024 10:38-0500 Body temperature 97.9 [degF] Norberto Gómez DO Work Phone: [facility] 03-20-2024 10:38-0500 Body weight 65.5 kg Norberto Gómez DO Work Phone: [facility] 03-20-2024 10:38-0500 Heart rate 66 /min Norberto Gómez DO Work Phone: [facility] 03-20-2024 10:38-0500 SaO2% (BldA) [Mass fraction] 98 % Norberto Gómez DO Work Phone: [facility] 03-05-2024 10:07-0500 Body temperature 98 [degF] Dr. Norberto Gómez DO Work Phone: [facility] 03-05-2024 10:07-0500 Body weight 64.[address] Norberto Gómez DO Work Phone: [facility] 03-05-2024 10:07-0500 Diastolic blood pressure 64 mm[Hg] Dr. Norberto Gómez DO Work Phone: [facility] 03-05-2024 10:07-0500 Heart rate 70 /min Dr. Norberto Gómez DO Work Phone: [facility] 03-05-2024 10:07-0500 Respiratory rate 16 /min Dr. Norberto Gómez DO Work Phone: [facility] 03-05-2024 10:07-0500 SaO2% (BldA) [Mass fraction] 99 % Dr. Norberto Gómez DO Work Phone: [facility] 03-05-2024 10:07-0500 Systolic blood pressure 149 mm[Hg] Dr. Norberto Gómez Work Phone: [facility] 09-28-2023 15:49-0400 Diastolic blood pressure 78 mm[Hg] Norberto Gómez DO Work Phone: [facility] 09-28-2023 15:49-0400 Heart rate 68 /min Norberto Gómez DO Work Phone: [facility] 09-28-2023 15:49-0400 Systolic blood pressure 138 mm[Hg] Norberto Gómez DO Work Phone: [facility] 09-28-2023 14:38-0400 Body height 165.1 cm Norberto Gómez DO Work Phone: [facility] 09-28-2023 14:38-0400 Body mass index (BMI) [Ratio] 22.13 kg/m2 Norberto Gómez DO Work Phone: [facility] 09-28-2023 14:38-0400 Body temperature 97.5 [degF] Norberto Gómez DO Work Phone: [facility] 09-28-2023 14:38-0400 Body weight 60.33 kg Norberto Gómez DO Work Phone: [facility] 09-28-2023 14:38-0400 SaO2% (BldA) [Mass fraction] 98 % Norberto Gómez DO Work Phone: [facility] 09-01-2023 10:33-0400 Body height 165.1 cm Allen BRAGG-Opal Work Phone: [facility] 09-01-2023 10:33-0400 Body mass index (BMI) [Ratio] 22.47 kg/m2 Allen BRAGG-C Work Phone: [facility] 09-01-2023 10:33-0400 Body weight 61.24 kg Allen BRAGG-Opal Work Phone: [facility] 07-20-2023 11:11-0400 Body height 165.1 cm Allen Rapp PA-C Work Phone: [facility] 07-20-2023 11:11-0400 Body mass index (BMI) [Ratio] 22.5 kg/m2 Allen Rapp PA-C Work Phone: [facility] 07-20-2023 11:11-0400 Body temperature 97.5 [degF] Allen Rapp PA-C Work Phone: [facility] 07-20-2023 11:11-0400 Body weight 61.33 kg Allen Contreraso PA-C Work Phone: [facility] 07-20-2023 11:11-0400 Diastolic blood pressure 62 mm[Hg] Allen Rapp PA-C Work Phone: [facility] 07-20-2023 11:11-0400 Heart rate 71 /min Allen BRAGG-C Work Phone: [facility] 07-20-2023 11:11-0400 SaO2% (BldA) [Mass fraction] 100 % Allen Contreraso PA-C Work Phone: [facility] 07-20-2023 11:11-0400 Systolic blood pressure 122 mm[Hg] Allen Rapp PA-C Work Phone: [facility] 07-12-2023 11:35-0400 Diastolic blood pressure 68 mm[Hg] Norberto Gómez DO Work Phone: [facility] 07-12-2023 11:35-0400 Heart rate 68 /min Norberto Gómez DO Work Phone: [facility] 07-12-2023 11:35-0400 Systolic blood pressure 132 mm[Hg] Norberto Gómez DO Work Phone: [facility] 07-12-2023 10:56-0400 Body height 165.1 cm Norberto Gómez DO Work Phone: [facility] 07-12-2023 10:56-0400 Body mass index (BMI) [Ratio] 22.13 kg/m2 Norberto Gómez DO Work Phone: [facility] 07-12-2023 10:56-0400 Body temperature 97 [degF] Norberto Gómez DO Work Phone: [facility] 07-12-2023 10:56-0400 Body weight 60.33 kg Norberto Gómez DO Work Phone: [facility] 07-12-2023 10:56-0400 SaO2% (BldA) [Mass fraction] 97 % Norberto Gómez DO Work Phone: [facility] 06-16-2023 12:12-0400 Diastolic blood pressure 60 mm[Hg] Michael Rodriguez MD Work Phone: [facility] 06-16-2023 12:12-0400 Systolic blood pressure 138 mm[Hg] Michael Rodriguez MD Work Phone: [facility] 06-16-2023 11:41-0400 Body height 165.1 cm Michael Rodriguez MD Work Phone: [facility] 06-16-2023 11:41-0400 Body mass index (BMI) [Ratio] 21.5 kg/m2 Michael Rodriguez MD Work Phone: [facility] 06-16-2023 11:41-0400 Body weight 58.6 kg Michael Rodriguez MD Work Phone: [facility] 06-16-2023 11:41-0400 Heart rate 73 /min Michael Rodriguez MD Work Phone: [facility] 06-16-2023 11:41-0400 Respiratory rate 16 /min Michael Rodriguez MD Work Phone: [facility] 06-16-2023 11:41-0400 SaO2% (BldA) [Mass fraction] 100 % Michael Rodriguez MD Work Phone: [facility] 05-30-2023 15:44-0400 Body height 165.1 cm Norberto Gómez DO Work Phone: [facility] 05-30-2023 15:44-0400 Body mass index (BMI) [Ratio] 21.8 kg/m2 Norberto Gómez DO Work Phone: [facility] 05-30-2023 15:44-0400 Body temperature 97.7 [degF] Norberto Gómez DO Work Phone: [facility] 05-30-2023 15:44-0400 Body weight 59.42 kg Norberto Gómez DO Work Phone: [facility] 05-30-2023 15:44-0400 Diastolic blood pressure 58 mm[Hg] Norberto Gómez DO Work Phone: [facility] 05-30-2023 15:44-0400 Heart rate 75 /min Norberto Gómez DO Work Phone: [facility] 05-30-2023 15:44-0400 SaO2% (BldA) [Mass fraction] 98 % Norberto Gómez DO Work Phone: [facility] 05-30-2023 15:44-0400 Systolic blood pressure 123 mm[Hg] Norberto Gómez DO Work Phone: [facility] 05-27-2023 16:00-0400 Body temperature 98 [degF] [facility] 05-27-2023 16:00-0400 Diastolic blood pressure 71 mm[Hg] [facility] 05-27-2023 16:00-0400 Heart rate 68 /min [facility] 05-27-2023 16:00-0400 Respiratory rate 16 /min [facility] 05-27-2023 16:00-0400 SaO2% (BldA) [Mass fraction] 97 % [facility] 05-27-2023 16:00-0400 Systolic blood pressure 177 mm[Hg] [facility] 05-27-2023 12:50-0400 Body height 165.1 cm [facility] 05-27-2023 12:50-0400 Body mass index (BMI) [Ratio] 21.6 kg/m2 [facility] 05-27-2023 12:50-0400 Body weight 58.96 kg [facility] 05-02-2023 11:13-0400 Diastolic blood pressure 64 mm[Hg] Ramsey Greer MD Work Phone: [facility] 05-02-2023 11:13-0400 Heart rate 73 /min Ramsey Greer MD Work Phone: [facility] 05-02-2023 11:13-0400 SaO2% (BldA) [Mass fraction] 99 % Ramsey Greer MD Work Phone: [facility] 05-02-2023 11:13-0400 Systolic blood pressure 136 mm[Hg] Ramsey Greer MD Work Phone: [facility] 05-02-2023 10:21-0400 Body height 165.7 cm Ramsey Greer MD Work Phone: [facility] 05-02-2023 10:21-0400 Body mass index (BMI) [Ratio] 21.47 kg/m2 Ramsey Greer MD Work Phone: [facility] 05-02-2023 10:21-0400 Body weight 58.97 kg Ramsey Greer MD Work Phone: [facility] 11-08-2022 10:55-0400 Body weight 54.88 kg Erin Rooney WHEEL FITTER.SODA CLERK Work Phone: [facility] 11-08-2022 10:55-0400 Diastolic blood pressure 70 mm[Hg] Erin Rooney WHEEL FITTER.SODA CLERK Work Phone: [facility] 11-08-2022 10:55-0400 Heart rate 67 /min Erincori Rooney WHEEL FITTER.SODA CLERK Work Phone: [facility] 11-08-2022 10:55-0400 SaO2% (BldA) [Mass fraction] 98 % Erin Rooney WHEEL FITTER.SODA CLERK Work Phone: [facility] 11-08-2022 10:55-0400 Systolic blood pressure 110 mm[Hg] [facility].SODA CLERK Work Phone: [facility] 10-12-2022 11:15-0400 Diastolic blood pressure 71 mm[Hg] Lizz Whitfield MD Work Phone: [facility] 10-12-2022 11:15-0400 Heart rate 62 /min Lizz Whitfield MD Work Phone: [facility] 10-12-2022 11:15-0400 Systolic blood pressure 159 mm[Hg] Lizz Whitfield MD Work Phone: [facility] 10-12-2022 11:13-0400 Body height 165.7 cm Lizz Whitfield MD Work Phone: [facility] Comment on above: per patient. she refused to let me do it 10-12-2022 11:13-0400 Body mass index (BMI) [Ratio] 20.41 kg/m2 Lizz Whitfield MD Work Phone: [facility] 10-12-2022 11:13-0400 Body weight 56.06 kg Lizz Whitfield MD Work Phone: [facility] 07-04-2022 17:56-0400 Diastolic blood pressure 72 mm[Hg] Norberto Gómez DO Work Phone: [facility] 07-04-2022 17:56-0400 Heart rate 76 /min Norberto Gómez DO Work Phone: [facility] 07-04-2022 17:56-0400 Systolic blood pressure 134 mm[Hg] Norberto Guadarramaa DO Work Phone: [employer] 07-04-2022 13:32-0400 Body height 165.1 cm Norberto Gómez DO Work Phone: [employer] [facility] 07-04-2022 13:32-0400 Body mass index (BMI) [Ratio] 20.3 kg/m2 Norberto Gómez DO Work Phone: [employer] [facility] 07-04-2022 13:32-0400 Body temperature 97.7 [degF] Norberto Gómez DO Work Phone: [facility] 07-04-2022 13:32-0400 Body weight 55.34 kg Norberto Gómez DO Work Phone: [facility] 07-04-2022 13:32-0400 SaO2% (BldA) [Mass fraction] 98 % Norberto Gómez DO Work Phone: [facility] 03-29-2022 14:30-0500 Body height 165.1 cm Gaurav Nunez DO Work Phone: [facility] 03-29-2022 14:30-0500 Body mass index (BMI) [Ratio] 20.3 kg/m2 Gaurav Nunez DO Work Phone: [facility] 03-29-2022 14:30-0500 Body temperature 97.7 [degF] Gaurav Nunez DO Work Phone: [facility] 03-29-2022 14:30-0500 Body weight 55.34 kg Gaurav Nunez DO Work Phone: [facility] 03-29-2022 14:30-0500 Diastolic blood pressure 71 mm[Hg] Gaurav Nunez DO Work Phone: [facility] 03-29-2022 14:30-0500 Heart rate 65 /min Gaurav Nunez DO Work Phone: [facility] 03-29-2022 14:30-0500 SaO2% (BldA) [Mass fraction] 99 % Gaurav Nunez DO Work Phone: [facility] 03-29-2022 14:30-0500 Systolic blood pressure 129 mm[Hg] Gaurav Polancofeleciao DO Work Phone: [facility] 01-21-2022 10:59-0500 Diastolic blood pressure 70 mm[Hg] Michael Rodriguez MD Work Phone: [facility] 01-21-2022 10:59-0500 Systolic blood pressure 142 mm[Hg] Michael Rodriguez MD Work Phone: [facility] 01-21-2022 10:24-0500 Body height 165.1 cm Michael Rodriguez MD Work Phone: [facility] 01-21-2022 10:24-0500 Body weight 54.25 kg Michael Rodriguez MD Work Phone: [facility] 01-21-2022 10:24-0500 Heart rate 62 /min Michael Rodriguez MD Work Phone: [facility] 01-21-2022 10:24-0500 Respiratory rate 16 /min Michael Rodriguez MD Work Phone: [facility] 01-21-2022 10:24-0500 SaO2% (BldA) [Mass fraction] 100 % Michael Rodriguez MD Work Phone: [facility] 10-20-2021 13:28-0400 Body temperature 98.1 [degF] Dr. Gaurav Nunez Work Phone: [facility] Work Phone: 10-20-2021 13:28-0400 Diastolic blood pressure 62 mm[Hg] Dr. Gaurav Nunez Work Phone: [facility] Work Phone: 10-20-2021 13:28-0400 Heart rate 66 /min Dr. Gaurav Nunez Work Phone: [facility] Work Phone: 10-20-2021 13:28-0400 Respiratory rate 18 /min Dr. Gaurav Nunez Work Phone: [facility] Work Phone: 10-20-2021 13:28-0400 SaO2% (BldA) [Mass fraction] 100 % Dr. Gaurav Nunez Work Phone: [facility] Work Phone: 10-20-2021 13:28-0400 Systolic blood pressure 167 mm[Hg] Dr. Gaurav Nunez Work Phone: [facility] Work Phone: 10-20-2021 10:54-0400 Body height 165.[address] Gaurav Nunez Work Phone: [facility] Work Phone: 10-20-2021 10:54-0400 Body mass index (BMI) [Ratio] 19.4 kg/m2 Dr. Gaurav Nunez Work Phone: [facility] Work Phone: 10-20-2021 10:54-0400 Body weight 53.[address] Gaurav Nunez Work Phone: [facility] Work Phone: 07-15-2021 13:38-0400 Body mass index (BMI) [Ratio] 19.8 kg/m2 Dr. Gaurav Nunez Work Phone: [facility] Work Phone: 07-15-2021 13:38-0400 Body weight 53.[address] Gaurav Nunez Work Phone: [facility] Work Phone: 07-15-2021 13:38-0400 Heart rate 74 /min Dr. Gaurav Nunez Work Phone: [facility] Work Phone: 05-25-2021 11:30-0400 Diastolic blood pressure 60 mm[Hg] Erin Kupiec WHEEL FITTER.SODA CLERK Work Phone: [facility] 05-25-2021 11:30-0400 Systolic blood pressure 140 mm[Hg] Erin Kupiec WHEEL FITTER.SODA CLERK Work Phone: [facility] 05-25-2021 11:07-0400 Body weight 53.89 kg Erin Kupiec WHEEL FITTER.SODA CLERK Work Phone: [facility] 05-25-2021 11:07-0400 Heart rate 64 /min Erin Rooney WHEEL FITTER.SODA CLERK Work Phone: [facility] 05-25-2021 11:040 SaO2% (BldA) [Mass fraction] 99 % Erin Levonnie WHEEL FITTER.SODA CLERK Work Phone: [facility] Encounters Encounter Date Encounter Type Care Provider Facility Start: 09-11-2024 End: 09-11-2024 Patient encounter procedure [facility]ow [facility] Work Phone: Start: 09-11-2024 End: 09-11-[address] Norberto Gómez DO Work Phone: [facility] Endocrinology Start: 08-14-2024 End: 08-14-2024 ambulatory PRISCA GARNER [facility] Start: 08-14-2024 End: 08-14-2024 Office outpatient visit 10 minutes Prisca Garner MD Work Phone: [facility] Comment on above: Vaginal discharge (P rimary Dx) Start: 07-08-2024 End: 07-08-2024 ambulatory Mary Stallings RN [facility] Clinical Communication Start: 07-08-2024 End: 07-08-2024 Patient encounter procedure Mary Stallings RN [facility] Clinic al Communication Start: 07-03-2024 End: 07-03-2024 Patient encounter procedure [facility] Work Phone: Start: 07-03-2024 End: 07-03-[address] Norberto Gómez DO Work Phone: [facility] Work Phone: Start: 06-26-2024 End: 06-26-2024 Patient encounter procedure [facility] Work Phone: Start: 06-26-2024 End: 06-26-2024 ambulatory Norberto Gómez Facility:[facility] Start: 06-26-2024 End: 06-26-2024 Office outpatient visit 10 minutes Prisca Garner MD Work Phone: [facility] Obstetrics [facility] Gynecology [place] Comment on above: PMB (postmenopausal bleeding) (Primary Dx) Start: 06-26-2024 End: 06-26-[address] 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)) Start: 06-20-2024 End: 06-20-2024 Patient encounter procedure Willow Barragan SHEAR SCRAPMAN[facility] Work Phone: Start: 06-20-2024 End: 06-20-2024 ambulatory Willow Barragan Facility[facility] Start: 06-19-2024 End: 06-19-2024 ambulatory NORBERTO GÓMEZ Facility:[facility] Start: 06-19-2024 End: 06-19-2024 Patient encounter procedure Michael Rodriguez MD Work Phone: Endocrinology Comment on above: 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 Obstetrics [facility] Comment on above: Other (After visit) Start: 05-29-2024 End: 05-29-2024 Initial preventive medicine new patient 64yrs&> Prisca Garner MD Work Phone: [facility] Obstetrics [facility] Gynecology - [place] Comment on above: PMB (postmenopausal bleeding) (Primary Dx); Vaginal discharge Encounter for gyneco logical examination with abnormal finding (Primary Dx); PMB (postmenopausal bleeding); Vaginal discharge Start: 05-29-2024 End: 05-29-2024 Patient encounter status Prisca Garner MD Work Phone: [facility] Start: 05-29-2024 End: 05-29-2024 ambulatory PRISCA GARNER [facility] Start: 05-22-2024 End: 05-22-2024 ambulatory NORBERTO GÓMEZ [facility] Start: 05-20-2024 End: 05-24-2024 Orders Only Norberto Gómez DO Work Phone: [facility] Comment on above: Other Start: 05-17-2024 End: 05-24-2024 Telephone encounter Norberto Gómez DO Work Phone: [facility] Comment on above: Referral Start: 05-16-2024 End: 05-16-2024 ambulatory Abiola Calvo RN [facility] Clinical Communication Start: 05-16-2024 End: 05-16-2024 Patient encounter procedure Abiola Calvo RN [facility] Clinic al Communication Start: 05-16-2024 End: 05-16-2024 Telephone encounter Norberto Gómez DO Work Phone: [facility] Comment on above: Referral Start: 05-15-2024 End: 05-17-2024 Telephone encounter Michael Rodriguez MD Work Phone: Endocrinology Comment on above: Received Office Note s ([facility]) Start: 05-10-2024 End: 05-10-2024 Telephone encounter Norberto Gómez DO Work Phone: [facility] Comment on above: [facility] Start: 05-08-2024 End: 05-10-2024 Telephone encounter Norberto Gómez DO Work Phone: [facility] Comment on above: Other ([facility]) Orders Start: 05-06-2024 End: 05-06-2024 Refill Michael Rodriguez MD Work Phone: Endocrinology Comment on above: Refill Request Start: 05-05-2024 End: 05-05-2024 Orders Only Norberto Gómez DO Work Phone: [facility] [place] Comment on above: Hyponatremia (Primar y Dx) Start: 05-03-2024 End: 05-03-2024 ambulatory Danielle Bess RN [facility] Clinical Communication Start: 05-03-2024 End: 05-03-2024 Patient encounter procedure Danielle Bess RN [facility] Clinical Communication Start: 05-02-2024 End: 05-02-2024 Telephone encounter Norberto Gómez Work Phone: [facility] Comment on above: Other (Home Health R equest ) Start: 04-29-2024 End: 04-29-2024 Office outpatient visit 40 minutes Norberto Gómez DO Work Phone: [facility] Comment on above: Ataxia (Primary Dx); Primary hypertension; Anxiety and depression; Uncontrolled type 1 diabetes mellitus with hyperglycemia (HCC); Diabetic peripheral neuropathy (HCC); Physical deconditioning Start: 04-29-2024 End: 04-29-2024 [facility] Start: 04-29-2024 End: 04-29-2024 Telephone encounter Norberto Gómez DO Work Phone: [facility] Comment on above: Referral (MRI-Head / Homehealth PT / Psychology) Start: 04-24-2024 End: 04-24-2024 ambulatory Mandi Jimenez RN [facility] Clinical Communication Start: 04-24-2024 End: 04-24-2024 Patient encounter procedure Mandi Jimenez RN [facility] Clinic al Communication Start: 04-17-2024 End: 05-15-2024 Telephone encounter Norberto Gómez Work Phone: [facility] [place] Comment on above: Results (04/16/24 Dante mogram/) Start: 04-16-2024 End: 04-16-2024 Clinical Support [facility] Schedule 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); Anxiety and depression; Hypercholesterolemia; Peripheral edema; Breast cancer screening by mammogram Start: 03-05-2024 End: 03-05-2024 Patient encounter procedure Shayna [facility] Work Phone: Start: 03-05-2024 End: 03-05-2024 ambulatory Shayna Villarreal Facility:[facility] Start: 01-27-2024 End: 01-29-2024 Refill Erin Greer APRN.CNP Work Phone: Endocrinology Comment on above: Refill Request Start: 01-15-2024 End: 01-15-2024 Refill Michael Rodriguez MD Work Phone: Endocrinology Comment on above: Refill Request Start: 01-11-2024 ambulatory Shayna Villarreal Facility:[facility] Start: 01-11-2024 End: 01-11-2024 ambulatory Shayna Villarreal Facility:[facility] Start: 12-28-2023 End: 12-28-2023 ambulatory Shayna Villarreal Facility:[facility] Start: 11-15-2023 End: 11-15-2023 Telephone encounter Norberto Estefania Dalia GARCIA Work Phone: [facility] Comment on above: Referral Start: 11-10-2023 End: 11-10-2023 Telephone encounter Norberto Gómez DO Work Phone: [facility] Comment on above: Referral Start: 11-08-2023 End: 11-08-2023 Refill Norberto Gómez DO Work Phone: [facility] Start: 11-05-2023 End: 11-07-2023 Telephone encounter Norberto Gómez DO Work Phone: [facility] Clinical Communication Comment on above: Other (Follow-up to lymphedema clinic referral) Start: 11-03-2023 End: 11-03-2023 Refill Erin Greer APRN.SODA CLERK Work Phone: Endocrinology Comment on above: Refill Request Start: 10-17-2023 End: 10-17-2023 ambulatory Norberto Gómez Facility:[facility] Start: 10-17-2023 End: 10-17-2023 ambulatory NORBERTO GÓMEZ Facility:[facility] Start: 10-12-2023 End: 10-12-2023 Telephone encounter Norberto Gómez DO Work Phone: [facility] Start: 10-10-2023 End: 10-17-2023 Orders Only Norberto Gómez DO Work Phone: [facility] Comment on above: Orders ([facility] referral ) Start: 09-29-2023 End: 09-29-2023 Telephone encounter Norberto Gómez DO Work Phone: [facility] Comment on above: Orders (Physical the rapy ) Start: 09-28-2023 End: 09-28-2023 Office outpatient visit 25 minutes Norberto Gómez DO Work Phone: [facility] Comment on above: Lymphedema (Primary Dx); Primary hypertension; 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 Start: 09-01-2023 End: 09-01-2023 Subsequent hospital visit by physician Allen Rapp PA-C Work Phone: [facility] Comment on above: Alcohol use; LLQ abdominal pain Peripheral edema Start: 09-01-2023 End: 09-01-2023 ambulatory ALLEN RAPP [facility] Start: 09-01-2023 End: 09-01-2023 ambulatory NORBERTO GÓMEZ Facility:[facility] Start: 08-30-2023 End: 08-30-2023 ambulatory [facility] Start: 08-30-2023 End: 08-30-2023 Patient encounter procedure Mary Stallings RN [facility] Clinic al Communication Start: 08-15-2023 End: 08-29-2023 Orders Only Norberto Gómez DO Work Phone: [facility] Comment on above: Peripheral edema Medication Problem Start: 07-21-2023 Telephone encounter Norberto vazquez DO Work Phone: [facility] Comment on above: Forms/questionnaires Start: 07-20-2023 End: 07-20-2023 Assay of hemosiderin, quant Allen Rapp PA-C Work Phone: 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); Uncontrolled type 1 diabetes mellitus with hyperglycemia (HCC); Dyspnea, unspecified; Hypercholesterolemia; History of right breast cancer Start: 06-21-2023 Refill Michael Rodriguez MD Work Phone: Endocrinology Comment on above: Refill Request Start: 06-16-2023 End: 06-16-2023 Patient encounter procedure Michael Rodriguez MD Work Phone: Endocrinology Comment on above: 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) (Primary Dx); Pure hypercholesterolemia; Osteopenia of multiple sites; Primary hypertension; Vitamin D deficiency; Venous insufficiency (chronic) (peripheral) Start: 06-05-2023 Orders Only Norberto iqbal DO Work Phone: [facility] Start: 06-03-2023 End: 09-02-2023 Transcribe Orders Norberto Gómez DO Work Phone: [facility] Clinical Communication Start: 06-02-2023 End: 06-02-2023 Subsequent hospital visit by physician Norberto Gómez DO Work Phone: [facility] Comment on above: Leg swelling Dependent edema; Decreased breath sounds at right lung base Start: 05-30-2023 End: 05-30-2023 Office outpatient visit 25 minutes Norberto Gómez DO Work Phone: [facility] Comment on above: Gardnerella associat ed vaginal discharge (Primary Dx); Dependent edema; Primary hypertension; Decreased breath sounds at right lung base; Closed fracture of sacrum and coccyx with routine healing, subsequent encounter; Uncontrolled type 1 diabetes mellitus with hyperglycemia (HCC); JENN (generalized anxiety disorder); Abrasion of upper extremity, unspecified laterality, subsequent encounter Start: 05-30-2023 Orders Only Norberto iqbal DO Work Phone: [facility] Start: 05-30-2023 Telephone encounter Norberto vazquez DO Work Phone: [facility] Comment on above: Orders (Venous doppl er ) Start: 05-27-2023 End: 05-27-2023 Emergency department patient visit [facility] Work Phone: Start: 05-02-2023 End: 05-02-2023 Office outpatient visit 15 minutes Ramsey Greer MD Work Phone: [facility] Comment on above: Dependent edema (Joy kuldeep Dx); Primary hypertension Start: 05-01-2023 ambulatory Kaitlin smith RN [facility] Clinical Communication Start: 05-01-2023 Patient encounter procedure Ra silvana Lipscomb RN [facility] Clinical Communication Start: 04-10-2023 ambulatory Trinidad Raymond RN [facility] Clinical Communication Start: 04-10-2023 Patient encounter procedure Trinidad Raymond RN [facility] Clinical Communication Start: 11-16-2022 End: 11-16-2022 Office outpatient visit 15 minutes Lizz Whitfield MD Work Phone: [facility] Geriatrics Comment on above: Anxiety (Primary Dx) ; Vitamin D deficiency; Caregiver stress Start: 11-08-2022 End: 11-08-2022 Patient encounter procedure Erin Percy SIMON Work Phone: Endocrinology Comment on above: 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) (Primary Dx); 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); Osteopenia of multiple sites; Pure hypercholesterolemia; Primary hypertension Start: 10-13-2022 Telephone encounter Lizz Whitfield MD Work Phone: [facility] Start: 10-12-2022 Orders Only Lizz enriquez MD Work Phone: [facility] Start: 10-12-2022 End: 10-12-2022 Office outpatient new 45 minutes Lizz Whitfield MD Work Phone: [facility] Comment on above: Memory loss (Primary Dx); Anxiety; Vitamin D deficiency; Caregiver stress; Sleep disorder Start: 09-15-2022 Telephone encounter Lizz Whitfield MD Work Phone: [facility] Comment on above: Appointment Request ([place] office) Start: 07-04-2022 End: 07-04-2022 Assay of hemosiderin, quant Norberto Gómez DO Work Phone: [facility] Start: 07-04-2022 End: 07-12-2023 Patient encounter procedure Norberto Hufflla DO Work Phone: [facility] Comment on above: Encounter for annual wellness visit (AWV) in Medicare patient (Primary Dx); History of right breast cancer; Diabetic 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); Dry skin dermatitis; Primary hypertension; Hypercholesterolemia; Routine general medical examination at health care facility Start: 06-21-2022 Documentation procedure Mammog ruth Coordinator [facility] Start: 06-21-2022 Letter encounter Mammography Coordinator ORESTES ANCILLARY AREA NOT LISTED Start: 06-20-2022 ambulatory GAURAV NUNEZ Facilit y:[facility] Start: 06-20-2022 End: 06-20-2022 Subsequent hospital visit by physician Screen Mammo [facility] Comment on above: SCREENING Start: 05-02-2022 Telephone encounter Norberto Mac Victor Hugo vazquez DO Work Phone: [facility] Comment on above: Orders Start: 04-13-2022 Telephone encounter Gaurav boyd DO Work Phone: [facility] Comment on above: Medication Problem Start: 03-31-2022 Telephone encounter Gaurav boyd DO Work Phone: [facility] Start: 03-29-2022 End: 03-29-2022 Office outpatient visit 15 minutes Gaurav Nunez DO Work Phone: [facility] Comment on above: JENN (generalized anx iety disorder) (Primary Dx); Obsessive-compulsive behavior; Type 1 diabetes mellitus without complication (CMS/HCC) (HCC) Start: 02-24-2022 Telephone encounter Michael Rodriguez MD Work Phone: Endocrinology Comment on above: Results Start: 02-22-2022 End: 02-22-2022 Subsequent hospital visit by physician Bone Density [facility] Work Phone: Radiology Comment on above: Osteopenia of multip le sites [M85.89] Start: 01-21-2022 End: 01-21-2022 Patient encounter procedure Michael Rodriguez MD Work Phone: Endocrinology Comment on above: 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 Mahsa Nunez Work Phone: [facility] Start: 10-20-2021 End: 10-20-2021 Admission to same day surgery center Dr. Gaurav Nunez Work Phone: [facility] Start: 10-20-2021 End: 10-20-[address] Gaurav Nunez Work Phone: [facility] Work Phone: Start: 08-23-2021 Refill Michael Rodriguez MD Work Phone: Endocrinology Comment on above: Refill Request Start: 07-15-2021 End: 07-15-[address] 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); Osteopenia of multiple sites; Pure hypercholesterolemia; Primary hypertension Start: 12-14-2020 End: 12-14-2020 Subsequent hospital visit by physician Allen Hardin MD Work Phone: [facility] Comment on above: Anesthesia of skin Procedures Date Procedure Procedure Detail Performing Clinician Start: 06-19-2024 Hemoglobin A1c/Hemoglobin.total in Blood Michael Rodriguez MD Work Phone: Start: 05-29-2024 SURESWAB(R) ADVANCED VAGINITIS, TMA (QUEST) Prisca Garner MD Work Phone: Start: 04-29-2024 Complete blood count with white cell differential, automated Norberto Gómez DO Work Phone: Start: 04-29-2024 Comprehensive metabo lic panel Norberto Gómez DO Work Phone: Start: 04-16-2024 End: 04-16-2024 Mammography Norberto Gómez DO Work Phone: Start: 03-20-2024 Thyrotropin [Units/v olume] in Serum or Plasma [facility] Schedule Start: 09-01-2023 Echo tthrc r-t 2d w/wom-mode compl spec&colr d Allen Rapp PA-C Work Phone: Start: 07-20-2023 Adult depression scr eening assessment Allen Rapp PA-C Work Phone: Start: 07-12-2023 Ecg routine ecg w/le ast 12 lds w/i&r Norberto Gómez DO Work Phone: Start: 06-16-2023 Hemoglobin A1c/Hemoglobin.total in Blood Michael Rodriguez MD Work Phone: Start: 06-02-2023 Radiologic exam ches t 2 views Norberto Gómez DO Work Phone: Start: 06-02-2023 Dup-scan xtr veins c omplete bilateral study Norberto Gómez DO Work Phone: Start: 05-30-2023 Cul bact xcpt urine blood/stool aerobic isol Norberto Gómez DO Work Phone: Start: 05-27-2023 Radiography of sacrococcygeal spine Start: 05-27-2023 CT cervical spine wi thout contrast Start: 05-27-2023 CT of head without contrast Start: 11-08-2022 Hemoglobin A1c/Hemoglobin.total in Blood Erin Greer WHEEL FITTER.SODA CLERK Work Phone: Start: 10-12-2022 Comprehensive metabo lic panel Lizz Whitfield MD Work Phone: Start: 10-12-2022 End: 10-12-2022 Thyrotropin [Units/volume] in Serum or Plasma Lizz Whitfield MD Work Phone: Start: 10-12-2022 Adult depression scr eening assessment Lizz Whitfield MD Work Phone: Start: 07-04-2022 Adult depression scr eening assessment Norberto Gómez DO Work Phone: Start: 06-20-2022 Mammography Mammograph y Coordinator Start: 02-22-2022 Dxa bone density marek dy 1/> sites axial skel Michael Rodriguez MD Work Phone: Start: 01-21-2022 Hemoglobin A1c/Hemoglobin.total in Blood Michael Rodriguez MD Work Phone: Start: 10-20-2021 End: 10-20-[address] Gaurav Nunez Work Phone: Start: 05-25-2021 Hemoglobin A1c/Hemoglobin.total in Blood Erin Greer WHEEL FITTER.SODA CLERK Work Phone: Start: 12-14-2020 EMG REPORT Tddanna raygoza DO Work Phone: Start: 10-05-2020 Mammography Erin rocha WHEEL FITTER.SODA CLERK Work Phone: Start: 04-18-2016 Colonoscopy Erin Green ayo WHEEL FITTER.SODA CLERK Work Phone: Plan of Treatment Date Care Activity Detail Author Start: 05-26-2033 DTaP/Tdap/Td Vaccines (2 - Td or Tdap) DTaP/Tdap/Td Vaccines (2 - Td or Tdap) [facility] Start: 05-26-2033 Urine microalbumin profile DTaP,Tdap,Td Vaccine (2 - Td or Tdap) [facility] Start: 10-21-2031 Screening for malignant neoplasm of colon [facility] Start: 04-29-2029 Cyanocobalamin vitamin b-12 Vitamin B-12 [employer] Start: 10-13-2027 Cyanocobalamin vitamin b-12 Vitamin B-12 [employer] Start: 04-21-2026 Screening for malignant neoplasm of colon Colon cancer screen colonoscopy [employer] Work Phone: Start: 06-19-2025 BP Controlled (<130/80) BP Controlled (<130/80) [facility] Start: 06-19-2025 Diabetic foot examination Diabetic Foot Exam [facility] Start: 06-19-2025 Hemoglobin A1c measurement Diabetes: Hemoglobin A1C [facility] [employer] Start: 04-29-2025 Diabetes: Estimated Glomerular Filtration Rate for [facility] Diabetes: Estimated Glomerular Filtration Rate for [facility] [employer] Start: 04-16-2025 Screening for malignant neoplasm of breast [facility] [employer] Start: 03-20-2025 Diabetes: Estimated Glomerular Filtration Rate for [facility] Diabetes: Estimated Glomerular Filtration Rate for [facility] [employer] Start: 03-20-2025 Hemoglobin A1c measurement Diabetes: Hemoglobin A1C [facility] [employer] Start: 03-20-2025 Thyroid stimulating hormone measurement TSH Level [facility] [employer] Start: 01-01-2025 End: 01-01-2025 Patient encounter procedure 01/01/2025 10:20 AM EST Office Visit Endocrinology [address] [place] [id number] Michael Rodriguez MD [address] [place] [id number] diabetes Endocrinology Comment on above: diabetes Start: 10-30-2024 Depression Monitoring Depression Monitoring [facility] [employer] Start: 10-16-2024 Diabetes: Estimated Glomerular Filtration Rate for [facility] Diabetes: Estimated Glomerular Filtration Rate for [facility] [employer] Start: 09-18-2024 Hemoglobin A1c measurement HbA1C [facility] Start: 09-17-2024 End: 09-17-2024 Patient encounter procedure [facility] [place] Start: 08-27-2024 Glaucoma screening Diabetes: Retinopathy Screening [facility] [email or web address] Start: 08-18-2024 Medicare Annual Wellness (AWV) Medicare Annual Wellness (AWV) [facility] [employer] Start: 08-14-2024 End: 08-14-2024 Patient encounter procedure 08/14/2024 1:15 PM EDT Office Visit [facility] [place] [address] [place] [id number] Prisca Garner MD [address] [place] [address] [facility] [place] Start: 08-08-2024 Glaucoma screening Dilated Retinal Exam [facility] Start: 07-26-2024 End: 07-26-2024 Patient encounter procedure 07/26/2024 11:00 AM EDT Office Visit Endocrinology [address] [address] Erin Greer APRN.SODA CLERK [address] [address] Diabetes/ Refill Endocrinology Comment on above: Diabetes/ Refill Start: 07-19-2024 Depression Screening Depression Screening [facility] Start: 07-19-2024 Diabetes: Estimated Glomerular Filtration Rate for Kidney Health Diabetes: Estimated Glomerular Filtration Rate for Kidney Health [facility] Start: 06-26-2024 End: 06-26-2024 Patient encounter procedure 06/26/2024 9:45 AM EDT Office Visit [facility] [place] [address] [place] [id number] Prisca Garner MD [address] [place] [address] [facility] [place] Start: 06-26-2024 End: 06-26-2024 Professional / ancillary services management 06/26/2024 9:00 AM EDT Ancillary Procedure [facility] [place] [address] [place] [id number] 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 Start: 06-15-2024 Hemoglobin A1c measurement Diabetes: Hemoglobin A1C [facility] Start: 06-15-2024 Hepatitis B screening Urine Albumin:Creatinine Ratio [facility] Start: 06-15-2024 Hepatitis B surface antibody level LDL Cholesterol [facility] Start: 06-05-2024 End: 05-05-2025 Basic metabolic 1998 panel - Serum or Plasma Basic metabolic panel Lab Routine Hyponatremia Expected: 06/05/2024 (Approximate), Expires: 05/05/2025 [employer] Work Phone: Comment on above: Expected: 06/05/2024 (Approximate), Expi res: 05/05/2025 Start: 05-29-2024 End: 05-29-2025 US Pelvis transvaginal US pelvis transvaginal Imaging Routine PMB (postmenopausal bleeding) Expected: 05/29/2024, Expires: 05/29/2025 [facility]: Comment on above: Expected: 05/29/2024, Expires: Start: 05-29-2024 End: 05-29-2024 Patient encounter procedure 05/29/2024 11:00 AM EDT Office Visit [facility] Obstetrics [facility] Gynecology [facility] [address] [place] [phone] Prisca Garner MD [address] [place] [address] [address] [place] [id number] [facility] [place] Start: 05-22-2024 End: 05-22-2024 Patient encounter procedure 05/22/2024 10:45 AM EDT Appointment [facility] MRI [address] [place] [phone] Norberto Gómez, [address] [place] [address] [facility] Start: 05-01-2024 Diabetes: Estimated Glomerular Filtration Rate for Kidney Health Diabetes: Estimated Glomerular Filtration Rate for Kidney Health [facility] Start: 04-29-2024 End: 04-29-2024 Patient encounter procedure 04/29/2024 3:00 PM EDT Office Visit [facility] [place] [address] [place] [phone] Norberto Gómez DO [address] [place] [address] [facility] [place] Start: 04-29-2024 End: 04-29-2025 Cobalamin (Vitamin B12) [Mass/volume] in Serum or Plasma Vitamin B12 Lab Routine Ataxia Expected: 04/29/2024 (Approximate), Expires: 04/29/2025 [facility] Comment on above: Expected: 04/29/2024 (Approximate), Expi res: 04/29/2025 Start: 04-29-2024 End: 04-29-2025 Comprehensive metabolic 1998 panel - Serum or Plasma Comprehensive metabolic panel Lab Routine Primary hypertension Expected: 04/29/2024 (Approximate), Expires: 04/29/2025 [facility] Work Phone: Comment on above: Expected: 04/29/2024 (Approximate), Expi res: 04/29/2025 Start: 04-29-2024 End: 04-29-2025 MR Brain WO and W contrast IV MR brain w and wo contrast Imaging Routine Ataxia Expected: 04/29/2024, Expires: 04/29/2025 [facility]: Comment on above: Expected: 04/29/2024, Expires: Start: 04-10-2024 End: 04-10-2024 Patient encounter procedure 04/10/2024 9:45 AM EST Office Visit [facility]s [facility]cology [facility] [address] [place] [address] Prisca Garner MD [address] [place] [address] [address] [place], [place] [id number] [facility] Start: 03-20-2024 End: 03-20-2025 CBC W Auto Differential panel - Blood CBC auto differential Lab Routine Primary hypertension Expected: 03/20/2024 (Approximate), Expires: 03/20/2025 [facility] [employer] Work Phone: Comment on above: Expected: 03/20/2024 (Approximate), Expi res: 03/20/2025 Start: 03-20-2024 End: 03-20-2025 Comprehensive metabolic 1998 panel - Serum or Plasma Comprehensive metabolic panel Lab Routine Primary hypertension Expected: 03/20/2024 (Approximate), Expires: 03/20/2025 [facility] [email or web address] Comment on above: Expected: 03/20/2024 (Approximate), Expi res: 03/20/2025 Start: 03-20-2024 End: 05-18-2025 DBT Breast - bilateral screening Bilateral screening mammogram with tomosynthesis Imaging Routine Other screening mammogram Expected: 03/20/2024, Expires: 05/18/2025 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 Comment on above: Expected: 03/20/2024 (Approximate), Expi res: 03/20/2025 Start: 03-20-2024 End: 03-20-2025 Thyrotropin [Units/volume] in Serum or Plasma TSH Lab Routine Peripheral edema Expected: 03/20/2024 (Approximate), Expires: 03/20/2025 [facility] Comment on above: Expected: 03/20/2024 (Approximate), Expi res: 03/20/2025 Start: 02-21-2024 Advance Directive Discussion Advance Directive Discussion [facility] Start: 01-20-2024 Depression Monitoring Depression Monitoring [facility] Start: 01-11-2024 End: 01-11-2024 Patient encounter procedure [facility] Start: 12-20-2023 End: 12-20-2023 Patient encounter procedure 12/20/2023 10:00 AM EDT Office Visit Endocrinology [address] [place] [address] Michael Rodriguez MD [address] [place] [address] [address] [place] [address] Type 1 DM Endocrinology Comment on above: Type 1 DM Start: 11-09-2023 3 comp foot exam completed Diabetic Foot Exam [facility] Start: 11-09-2023 BP Controlled (<130/80) BP Controlled (<130/80) [facility] Start: 11-09-2023 Diabetic foot examination Diabetic Foot Exam [facility] Start: 11-09-2023 Hemoglobin A1c measurement Diabetes: Hemoglobin A1C [facility] Start: 10-26-2023 End: 10-26-2023 Clinical Support 10/26/2023 11:00 AM EDT Clinical Support [facility] [address] [place] [address] [facility] Start: 10-22-2023 Covid-19 Vaccine () Covid-19 Vaccine ( season) [facility] Start: 10-22-2023 Covid-19 Vaccine () Covid-19 Vaccine () [facility] Start: 10-22-2023 Influenza vaccination Influenza Vaccine (#1) [facility] Start: 10-13-2023 Depression Screening Depression Screening [facility] Start: 10-13-2023 Thyroid stimulating hormone measurement TSH Level [facility] Start: 10-12-2023 End: 10-12-2023 Patient encounter procedure 10/12/2023 9:00 AM EDT Office Visit [facility] [address] [place] [address] Norberto Gómez, [address] [place] [address] [facility] Start: 09-28-2023 End: 09-28-2023 Patient encounter procedure 09/28/2023 3:00 PM EDT Office Visit [facility] [address] [place] [address] Norberto Gómez DO [address] [place] [address] [facility] Start: 09-28-2023 End: 09-27-2024 Basic metabolic 1998 panel - Serum or Plasma Basic metabolic panel Lab Routine Primary hypertension Lymphedema Expected: 09/28/2023 (Approximate), Expires: 09/27/2024 [facility] Work Phone: Comment on above: Expected: 09/28/2023 (Approximate), Expi res: 09/27/2024 Start: 09-15-2023 Hemoglobin A1c measurement HbA1C [facility] Start: 09-01-2023 End: 09-01-2023 Patient encounter procedure [facility] Start: 08-29-2023 End: 08-14-2024 Comprehensive metabolic 1998 panel - Serum or Plasma Comprehensive metabolic panel Lab Routine Peripheral edema Expected: 08/29/2023 (Approximate), Expires: 08/14/2024 [facility] Work Phone: Comment on above: Expected: 08/29/2023 (Approximate), Expi res: 08/14/2024 Start: 08-04-2023 Medicare Annual Wellness (AWV) Medicare Annual Wellness (AWV) [facility] Start: 07-26-2023 End: 07-26-2023 Clinical Support 07/26/2023 9:40 AM EDT Clinical Support [facility] [address] [place] [phone] [facility] Start: 07-20-2023 End: 07-19-2024 Basic metabolic 1998 panel - Serum or Plasma Basic metabolic panel Lab Routine Peripheral edema Alcohol use LLQ abdominal pain Expected: 07/20/2023 (Approximate), Expires: 07/19/2024 [facility] Comment on above: Expected: 07/20/2023 (Approximate), Expi res: 07/19/2024 Start: 07-20-2023 End: 07-19-2024 Folate [Mass/volume] in Serum or Plasma Folate Lab Routine Alcohol use Expected: 07/20/2023 (Approximate), Expires: 07/19/2024 [facility] Comment on above: Expected: 07/20/2023 (Approximate), Expi res: 07/19/2024 Start: 07-20-2023 End: 07-19-2024 US Abdomen US abdomen complete Imaging Routine Alcohol use LLQ abdominal pain Expected: 07/20/2023, Expires: 07/19/2024 [facility] Comment on above: Expected: 07/20/2023, Expires: Start: 07-20-2023 End: 07-19-2025 US Heart Transthoracic Transthoracic echocardiogram (TTE) complete with contrast, bubble, strain, and 3D PRN CV Echocardiography Routine Peripheral edema Expected: 07/20/2023 (Approximate), Expires: 07/19/2025 [facility] [employer] Work Phone: Comment on above: Expected: 07/20/2023 (Approximate), Expi res: 07/19/2025 Start: 07-20-2023 End: 07-19-2024 VITAMIN B1 VITAMIN B1 Lab Routine Alcohol use Expected: 07/20/2023 (Approximate), Expires: 07/19/2024 [facility] [email or web address] Comment on above: Expected: 07/20/2023 (Approximate), Expi res: 07/19/2024 Start: 07-20-2023 End: 07-20-2023 Patient encounter procedure [facility] Start: 07-12-2023 End: 07-11-2024 Natriuretic peptide B [Mass/volume] in Blood NT PRO BNP Lab Routine Dependent edema Dyspnea, unspecified Expected: 07/12/2023 (Approximate), Expires: 07/11/2024 [facility] Work Phone: Comment on above: Expected: 07/12/2023 (Approximate), Expi res: 07/11/2024 Start: 07-05-2023 Depression Screening Depression Screening [facility] Start: 06-21-2023 Mammography [facility] Start: 06-21-2023 Screening for malignant neoplasm of breast [facility] Start: 06-02-2023 End: 06-02-2023 Patient encounter procedure 06/02/2023 12:30 PM EDT Appointment [facility] [address] [place] [address] Norberto Gómez, [address] [place] [address] [facility] Start: 05-30-2023 End: 05-29-2024 Culture Bacteria Vaginal Culture Bacteria Vaginal Microbiology Routine Gardnerella associated vaginal discharge Expected: 05/30/2023 (Approximate), Expires: 05/29/2024 [facility] Comment on above: Expected: 05/30/2023 (Approximate), Expi res: 05/29/2024 Start: 05-30-2023 End: 05-29-2024 XR Chest 2 Views XR chest 2 views Imaging Routine Dependent edema Decreased breath sounds at right lung base Expected: 05/30/2023, Expires: 05/29/2024 [facility] Work [facility]: Comment on above: Expected: 05/30/2023, Expires: Start: 05-27-2023 [facility] Start: 05-16-2023 End: 05-16-2023 Patient encounter procedure 05/16/2023 9:30 AM EDT Office Visit [facility] [address] [place] [address] Norberto Gómez, [address] [place] [address] [facility] Start: 05-02-2023 End: 05-01-2024 CBC panel - Blood by Automated count CBC Lab Routine Dependent edema Expected: 05/02/2023 (Approximate), Expires: 05/01/2024 [facility] [email or web address] Comment on above: Expected: 05/02/2023 (Approximate), Expi res: 05/01/2024 Start: 05-02-2023 End: 05-01-2024 Comprehensive metabolic 1998 panel - Serum or Plasma Comprehensive metabolic panel Lab Routine Dependent edema Expected: 05/02/2023 (Approximate), Expires: 05/01/2024 [facility] Work Phone: Comment on above: Expected: 05/02/2023 (Approximate), Expi res: 05/01/2024 Start: 05-02-2023 End: 05-02-2023 Patient encounter procedure 05/02/2023 10:45 AM EDT Office Visit [facility] [address] [place] [address] [place] [address] Ramsey Greer MD [address] [place] [address] [place] [address] [facility] Start: 02-22-2023 Hepatitis B screening URINE ALBUMIN:CREATININE RATIO [facility] Start: 02-22-2023 Hepatitis B surface antibody level LDL CHOLESTEROL [facility] Start: 02-22-2023 Urine screening for protein Diabetes: Urine Protein Screening [facility] Start: 02-20-2023 Advance Directive Discussion Advance Directive Discussion [facility] Start: 02-07-2023 Hemoglobin A1c/Hemoglobin.total in Blood HbA1C [facility] Start: 01-21-2023 3 comp foot exam completed DIABETIC FOOT EXAM [facility] Start: 12-16-2022 End: 01-16-2023 25-hydroxyvitamin D3 [Mass/volume] in Serum or Plasma Vitamin D Deficiency Screening (Vit D 25) Lab Routine Vitamin D deficiency Expected: 12/16/2022 (Approximate), Expires: 01/16/2023 [facility] Work Phone: Comment on above: Expected: 12/16/2022 (Approximate), Expi res: 01/16/2023 Start: 11-16-2022 End: 11-16-2022 Patient encounter procedure 11/16/2022 10:45 AM EDT Office Visit [facility] Geriatrics [address] [place] [address] Lizz Whitfield MD [address] [place], [place] [id number] [facility] Start: 10-21-2022 Covid-19 Vaccine ( season) Covid-19 Vaccine ( season) [facility] Start: 10-21-2022 Influenza vaccination Influenza Vaccine (#1) [facility] Start: 10-12-2022 End: 11-12-2022 25-hydroxyvitamin D3 [Mass/volume] in Serum or Plasma Vitamin D Deficiency Screening (Vit D 25) Lab Routine Vitamin D deficiency Expected: 10/12/2022 (Approximate), Expires: 11/12/2022 [facility] Comment on above: Expected: 10/12/2022 (Approximate), Expi res: 11/12/2022 Start: 10-12-2022 End: 11-12-2022 CBC panel - Blood by Automated count CBC Lab Routine Memory loss Expected: 10/12/2022 (Approximate), Expires: 11/12/2022 [facility] Work Phone: Comment on above: Expected: 10/12/2022 (Approximate), Expi res: 11/12/2022 Start: 10-12-2022 End: 11-12-2022 Cobalamin (Vitamin B12) [Mass/volume] in Serum or Plasma Vitamin B12 Lab Routine Memory loss Expected: 10/12/2022 (Approximate), Expires: 11/12/2022 [facility] Comment on above: Expected: 10/12/2022 (Approximate), Expi res: 11/12/2022 Start: 10-12-2022 End: 11-12-2022 Comprehensive metabolic 1998 panel - Serum or Plasma Comprehensive metabolic panel Lab Routine Memory loss Expected: 10/12/2022 (Approximate), Expires: 11/12/2022 [facility] Comment on above: Expected: 10/12/2022 (Approximate), Expi res: 11/12/2022 Start: 10-12-2022 End: 11-12-2022 Folate [Mass/volume] in Serum or Plasma Folate Lab Routine Memory loss Expected: 10/12/2022 (Approximate), Expires: 11/12/2022 [facility] Comment on above: Expected: 10/12/2022 (Approximate), Expi res: 11/12/2022 Start: 10-12-2022 End: 11-12-2022 Thyrotropin [Units/volume] in Serum or Plasma TSH Lab Routine Memory loss Expected: 10/12/2022 (Approximate), Expires: 11/12/2022 [facility] Comment on above: Expected: 10/12/2022 (Approximate), Expi res: 11/12/2022 Start: 10-12-2022 End: 10-12-2022 Patient encounter procedure 10/12/2022 9:45 AM EDT Office Visit [facility] Geriatrics [address] [place] [address] Lizz Whitfield MD [address] [facility] [address] [place], [place] [id number] [facility] Start: 08-31-2022 Glaucoma screening Diabetes: Retinopathy Screening [facility] Start: 06-09-2022 Glaucoma screening Dilated Retinal Exam [facility] Start: 06-09-2022 Hepatitis C antibody, confirmatory test DILATED RETINAL EXAM [facility] Start: 04-21-2022 Hemoglobin A1c/Hemoglobin.total in Blood HBA1C [facility] Start: 03-31-2022 End: 05-30-2023 MG Breast - bilateral Screening Bilateral screening mammogram Imaging Routine Other screening mammogram Expected: 03/31/2022, Expires: 05/30/2023 [facility] Work Phone: Comment on above: Expected: 03/31/2022, Expires: 4 Start: 02-24-2022 End: 04-26-2022 Basic metabolic 2000 panel - Serum or Plasma BASIC METABOLIC PNL Lab Routine Hyponatremia Expected: 02/24/2022, Expires: 04/26/2022 [facility] Work Phone: Comment on above: Expected: 02/24/2022, Expires: 3 Start: 02-24-2022 End: 04-26-2022 Cortisol [Mass/volume] in Serum or Plasma CORTISOL BLD Lab Routine Hyponatremia Expected: 02/24/2022, Expires: 04/26/2022 [facility] Work Phone: Comment on above: Expected: 02/24/2022, Expires: 3 Start: 02-24-2022 End: 04-26-2022 Thyrotropin [Units/volume] in Serum or Plasma TSH BLD Lab Routine Hyponatremia Expected: 02/24/2022, Expires: 04/26/2022 [facility] Work Phone: Comment on above: Expected: 02/24/2022, Expires: 3 Start: 02-24-2022 End: 04-26-2022 Thyroxine (T4) free [Mass/volume] in Serum or Plasma T4 FREE/FREE THYROX Lab Routine Hyponatremia Expected: 02/24/2022, Expires: 04/26/2022 [facility] Work Phone: Comment on above: Expected: 02/24/2022, Expires: 3 Start: 02-20-2022 ADVANCE DIRECTIVE DISCUSSION ADVANCE DIRECTIVE DISCUSSION [facility] Start: 01-21-2022 End: 03-23-2022 ALBUMIN/CREAT RATIO RND UR ALBUMIN/CREAT RATIO RND UR Lab Routine 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) Expected: 01/21/2022, Expires: 03/23/2022 [facility] Work Phone: Comment on above: Expected: 01/21/2022, Expires: 3 Start: 01-21-2022 End: 03-23-2022 Comprehensive metabolic 2000 panel - Serum or Plasma COMP METABOLIC PANEL Lab Routine 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) Expected: 01/21/2022, Expires: 03/23/2022 [facility] Work Phone: Comment on above: Expected: 01/21/2022, Expires: 3 Start: 01-21-2022 End: 03-23-2022 Lipid 1996 panel - Serum or Plasma LIPID PANEL BASIC Lab Routine Pure hypercholesterolemia Expected: 01/21/2022, Expires: 03/23/2022 [facility] Work Phone: Comment on above: Expected: 01/21/2022, Expires: 3 Start: 12-25-2021 Hepatitis B screening URINE ALBUMIN:CREATININE RATIO [facility] Start: 12-25-2021 Hepatitis B surface antibody level LDL CHOLESTEROL [facility] Start: 10-21-2021 Influenza vaccination INFLUENZA (#1) [facility] Start: 10-20-2021 Patient discharge [facility] Work Phone: Start: 10-05-2021 Mammography MAMMOGRAM [facility] Start: 10-05-2021 Screening for malignant neoplasm of breast Breast cancer screen [facility] Work Phone: Start: 09-14-2021 3 comp foot exam completed DIABETIC FOOT EXAM [facility] Start: 08-24-2021 Hemoglobin A1c/Hemoglobin.total in Blood HBA1C [facility] Start: 06-22-2021 Diabetic foot examination Diabetic foot exam [facility] Work Phone: Start: 05-12-2021 COVID-19 VACCINE (4 - Booster for Pfizer series) COVID-19 VACCINE (4 - Booster for Pfizer series) [facility] Start: 04-21-2021 Hemoglobin A1c measurement Diabetes: Hemoglobin A1C [facility] Start: 04-18-2021 Colonoscopy COLONOSCOPY [facility] Start: 04-18-2021 COLORECTAL CANCER SCREENING COLORECTAL CANCER SCREENING [facility] Start: 04-18-2021 Screening for malignant neoplasm of colon [facility] Start: 03-19-2021 Hemoglobin A1c measurement A1C test (Diabetic or Prediabetic) [facility] Work Phone: Start: 03-09-2021 COVID-19 VACCINE (4 - Booster for Pfizer series) COVID-19 VACCINE (4 - Booster for Pfizer series) [facility] Start: 03-09-2021 Covid-19 Vaccine (4 - Pfizer series) Covid-19 Vaccine (4 - Pfizer series) [facility] Start: 02-20-2021 ADVANCE DIRECTIVE DISCUSSION ADVANCE DIRECTIVE DISCUSSION [facility] Start: 12-31-2020 End: 12-31-2020 Patient encounter procedure 12/31/2020 Office Visit Neurology Allen Hardin MD [address] [place] [address] [phone] [facility] [place] Start: 11-19-2020 COVID-19 Vaccine (3 - Pfizer booster) COVID-19 Vaccine (3 - Pfizer booster) [facility] Work Phone: Start: 07-22-2020 Hemoglobin A1c measurement Diabetes: Hemoglobin A1C [facility] Start: 07-09-2020 Hepatitis C antibody, confirmatory test DILATED RETINAL EXAM [facility] Start: 2019 PNEUMOVAX AGE 65 AND OVER WITH 5YR LOOKBACK (#1) PNEUMOVAX AGE 65 AND OVER WITH 5YR LOOKBACK (#1) [facility] Start: 05-24-2018 Creatinine measurement Creatinine monitoring [facility] Work Phone: Start: 05-24-2018 Potassium monitoring Potassium monitoring [facility] Work Phone: Start: 02-21-2015 Shingles Vaccine (2 of 3) Shingles Vaccine (2 of 3) [facility] Work Phone: Start: 2014 Hepatitis B Vaccine (1 of 3 - Risk 3-dose series) Hepatitis B Vaccine (1 of 3 - Risk 3-dose series) [facility] Start: 2014 Hepatitis B Vaccines (1 of 3 - Risk 3-dose series) Hepatitis B Vaccines (1 of 3 - Risk 3-dose series) [facility] Start: 2014 RSV Immunization aged 60 or older (1 - 1-dose 60+ series) RSV Immunization aged 60 or older (1 - 1-dose 60+ series) [facility] Start: 2014 RSV Immunization for Adults (1 - Risk 60-74 years 1-dose series) RSV Immunization for Adults (1 - Risk 60-74 years 1-dose series) [facility] Start: 2014 RSV Vaccine (1 - 1-dose 60+ series) RSV Vaccine (1 - 1-dose 60+ series) [facility] Start: 2014 RSV Vaccine (1 - Risk 60-74 years 1-dose series) RSV Vaccine (1 - Risk 60-74 years 1-dose series) [facility] Start: 11-13-2009 Pneumococcal Vaccine: 65+ (2 - PCV) Pneumococcal Vaccine: 65+ (2 - PCV) [facility] Start: 11-13-2009 PNEUMOCOCCAL: 65+ (2 - PCV) PNEUMOCOCCAL: 65+ (2 - PCV) [facility] Start: 2009 Screening for osteoporosis DEXA (modify frequency per FRAX score) [facility] Work Phone: Start: 2004 SHINGRIX VACCINE (1 of 2) SHINGRIX VACCINE (1 of 2) [facility] Start: 1999 COLOGUARD (FIT-DNA) COLOGUARD (FIT-DNA) [facility] Start: [address] COLONOGRAPHY [facility] Start: 1999 FECAL OCCULT BLOOD FECAL OCCULT BLOOD [facility] Start: 1999 Screening for malignant neoplasm of colon [facility] Start: 1999 SIGMOIDOSCOPY SIGMOIDOSCOPY [facility] Start: 1973 DTaP/Tdap/Td vaccine (1 - Tdap) DTaP/Tdap/Td vaccine (1 - Tdap) [facility] Work Phone: Start: 1973 DTaP/Tdap/Td Vaccines (1 - Tdap) DTaP/Tdap/Td Vaccines (1 - Tdap) [facility] Start: 1973 Urine microalbumin profile [facility] Start: 1972 ANNUAL PCP TEAM CHRONIC DISEASE VISIT ANNUAL PCP TEAM CHRONIC DISEASE VISIT [facility] Start: 1972 Anxiety Screening Anxiety Screening [facility] Start: 1972 BP CONTROLLED (<130/80) BP CONTROLLED (<130/80) [facility] Start: 1972 Diabetes: Urine Albumin-Creatinine Ratio for Kidney Health Diabetes: Urine Albumin-Creatinine Ratio for Kidney Health [facility] Start: 1972 Diabetic microalbuminuria test Diabetic microalbuminuria test [facility] Work Phone: Start: 1972 HEPATITIS C SCREENING HEPATITIS C SCREENING [facility] Start: 1972 Hepatitis C screening Hepatitis C Screening [facility] Start: 1964 Diabetic foot examination Diabetes: Foot Exam [facility] Start: 1964 Diabetic retinal exam Diabetic retinal exam [facility] Work Phone: Start: 1964 Glaucoma screening Diabetes: Retinopathy Screening [facility] Start: 1964 Lipid panel Lipid screen [employer] Work Phone: Start: 1964 Preventive dental service Diabetes: Dental Exam [facility] Start: 1954 Cyanocobalamin vitamin b-12 Vitamin B-12 [facility] Start: 1954 Diabetes: Celiac Disease Screening Diabetes: Celiac Disease Screening [facility] Start: 1954 Hepatitis B Vaccines (1 of 3 - 3-dose series) Hepatitis B Vaccines (1 of 3 - 3-dose series) [facility] Start: 1954 Hepatitis C screening Hepatitis C screen [facility] Work Phone: Start: 1954 Lipid panel Lipid Panel [facility] Start: 1954 Medicare Annual Wellness (AWV) Medicare Annual Wellness (AWV) [facility] Start: 1954 Screening for malignant neoplasm of colon [facility] Start: 1954 Thyroid stimulating hormone measurement TSH Level [facility] End: 07-19-2025 BD DXA TRABECULAR BONE SCORE (TBS) BD DXA TRABECULAR BONE SCORE (TBS) Radiology Routine Premature menopause 1 Occurrences starting 06/19/2024 until 07/19/2025 [facility] Comment on above: 1 Occurrences starting 06/19/2024 until 07/19/2025 Comprehensive metabo lic 2000 panel - Serum or Plasma [facility] End: 07-19-2025 DXA Skeletal system.axial Views for bone density DXA-AXIAL SKELETON Radiology Routine Premature menopause 1 Occurrences starting 06/19/2024 until 07/19/2025 [facility] Work Phone: Comment on above: 1 Occurrences starting 06/19/2024 until 07/19/2025 End: 02-20-2023 DXA-AXIAL SKELETON DXA-AXIAL SKELETON Radiology Routine Osteopenia of multiple sites Disorder of bone and cartilage 1 Occurrences starting 01/21/2022 until 02/20/2023 [facility] Work Phone: Comment on above: 1 Occurrences starting 01/21/2022 until 02/20/2023 Lipid 1996 panel - Serum or Plasma [facility] OUTSIDE PROCEDURE SCAN OUTSIDE P ROCEDURE SCAN Procedures Ordered: 06/01/2023 [employer] Comment on above: Ordered: 06/01/2023 Patient Education ED Tailbone (C occyx) Fracture [facility] Work Phone: Patient referral [facility] Work Phone: SURESWAB(R) ADVANCED VAGINITIS, TMA ([facility]) Sureswab(R) Advanced Vaginitis, TMA ([facility]) Lab Routine Vaginal discharge Ordered: 05/29/2024 [employer] Comment on above: Ordered: 05/29/2024 SURESWAB(R) ADVANCED VAGINITIS, TMA ([facility]) Sureswab(R) Advanced Vaginitis, TMA ([facility]) Lab Routine Vaginal discharge Ordered: 08/14/2024 [employer] Work Phone: Comment on above: Ordered: 08/14/2024 Thyroid stimulating hormone measurement [facility] Urine microalbumin/creatinine ratio measurement [facility] End: 09-01-2023 US Abdomen [employer] Work Phone: Comment on above: Once for 1 Occurrences starting 09/01/19 24 until 09/01/2023 Vitamin D, 25-hydrox y measurement [facility] Immunizations Immunization Date Immunization Notes Care Provider Moe benedict 10-11-2023 Seasonal trivalent influenza vaccine, adjuvanted, preservative free Norberto Gómez DO Work Phone: [facility] 05-27-2023 tetanus toxoid, redu georges diphtheria toxoid, and acellular pertussis vaccine, adsorbed [facility] 12-16-2022 influenza virus vacc ine, unspecified formulation Norberto Gómez DO Work Phone: [facility] 11-12-2021 Influenza, Seasonal, Quadrivalent, Adjuvanted Norberto Gómez DO Work Phone: [facility] 11-12-2021 Pneumococcal Conjuga te PCV20, Pf (Prevnar 20) Norberto Gómez DO Work Phone: [facility] 11-12-2021 influenza virus vacc ine, unspecified formulation Lizz Whitfield MD Work Phone: [facility] 09-13-2021 zoster vaccine recombinant Norberto Gómez DO Work Phone: [facility] 06-15-2021 zoster vaccine recombinant Norberto Gómez DO Work Phone: [facility] 01-12-2021 Pfizer SARS-CoV-2 Vaccination Norberto Gómez DO Work Phone: [facility] 11-16-2020 Influenza, Seasonal, Quadrivalent, Adjuvanted Norberto Gómez DO Work Phone: [facility] 06-22-2020 pneumococcal polysaccharide vaccine, 23 valent Allen Hardin MD Work Phone: [facility] 05-19-2020 Covid (Pfizer) Dr. Gaurav Betancur asso Work Phone: [facility] 04-28-2020 Covid (Pfizer) Dr. Gaurav Betancur asso Work Phone: [facility] 11-14-2019 unknown vaccine or immune globulin Norberto Gómez DO Work Phone: [facility] 12-26-2018 Influenza, injectabl e, Madin Gill Canine Kidney, preservative free, quadrivalent Allen Hardin MD Work Phone: [facility] 12-04-2017 Influenza, injectabl e, Madin Rosalba Canine Kidney, preservative free, quadrivalent Norberto Petrilla DO Work Phone: [facility] 12-26-2016 influenza, seasonal, injectable, preservative free Norberto Petrilla DO Work Phone: [facility] 11-27-2015 influenza virus vacc ine, unspecified formulation Allen Hardin MD Work Phone: [facility] 11-27-2015 influenza, seasonal, injectable Norberto Petrilla DO Work Phone: [facility] 11-11-2015 Influenza Vaccine, unspecified formulation Allen Hardin MD Work Phone: [facility] Work Phone: 11-11-2015 influenza, seasonal, injectable Norberto Petrilla DO Work Phone: [facility] 01-01-2015 influenza, seasonal, injectable Norberto Petrilla DO Work Phone: [facility] 12-27-2014 zoster vaccine, live Allen dahl MD Work Phone: [facility] 04-21-2014 zoster vaccine, live Allen dahl MD Work Phone: [facility] 04-02-2014 zoster vaccine, live Allen dahl MD Work Phone: [facility] Work Phone: 11-28-2013 influenza, seasonal, injectable Norberto Petrilla DO Work Phone: [facility] 12-12-2008 influenza virus vacc ine, whole virus Norberto Petrilla DO Work Phone: [facility] 11-13-2008 pneumococcal polysaccharide vaccine, 23 valent Michael Rodriguez MD Work Phone: [facility] 12-19-2006 influenza virus vacc ine, whole virus Norberto Petrilla DO Work Phone: [facility] Payers Date Payer Category Payer Self-pay [id number] 2023 For Life--Medicare Supplement FOR LIFE [id number] 2022 Department of [facility] ( and others) [id number] 2022 Government (not [facility] care or Medicaid) FOR LIFE [id number] 2019 Unknown FOR LIFE [id number] 2019-Present [phone] [place] [id number] Indemnity [id number] 2019 Unknown [id number] 2019 Medicare MEDICARE MEDICAR E A AND B [id number] 2019-Present [phone] [place] [address] Medicare [id number] 2019 Medicare [id number] 2019 Medicare [id number] 2017 [employer] of [employer] (ERICKA and others) [id number] Unknown [id number] Unknown [id number] Unknown [id number] Unknown [id number] Unknown [id number] Unknown [id number] Unknown [id number] Unknown [id number] Unknown [id number] Social History Date Type Detail Facility Start: 09-09-2020 End: 06-20-2024 Tobacco smoking status NHIS Never smoker [facility] Work Phone: Start: 09-09-2020 End: 01-21-2022 Tobacco use and exposure Never used [facility] Start: 09-09-2020 End: 08-14-2024 Alcohol intake Current drinker of alcohol (finding) [facility] Work Phone: Start: 05-22-2018 History SDOH Alcohol Frequency 5 [facility] Work Phone: Start: 05-22-2018 History SDOH Alcohol Std Drinks 1 [facility] Work Phone: Start: 05-22-2018 History SDOH Social Connections Phone 4 [facility] Work Phone: Start: 05-22-2018 History SDOH Social Connections Get Together 3 [facility] Work Phone: Start: 09-14-2018 History SDOH Social Connections [employer] [address] [facility] Work Phone: Start: 05-22-2018 End: 09-14-2018 History SDOH IPV Fear 2 [facility] Work Phone: Start: 1955 Sex Assigned At Not on file [facility] Work Phone: Start: 06-13-2012 History SDOH Alcohol Comment Couple drinks a day [facility] Start: 1955 Sex Assigned At Female [facility] Start: 05-15-2021 End: 10-12-2022 Exposure to SARS-CoV-2 (event) Not sure [facility] Start: 10-14-2021 End: 05-27-2023 Tobacco smoking status NHIS Unknown if ever smoked [facility] Start: 07-04-2022 End: 04-07-2024 History of Social function [facility] Start: 07-04-2022 End: 04-07-[address] [facility] National Score (1-10 0), lower number is lower risk 60 [facility] Start: 04-21-2020 Gender identity Identifies as female gender (finding) [facility] How often to you hav e a drink containing alcohol? 2-[address] [facility] How many standard dr inks containing alcohol do you have on a typical day? [address] [facility] How often do you hav e 6 or more drinks on 1 occasion? Never [employer] Start: 09-20-2021 Sex Female (finding) [employer] Has the [employer], [employer], [employer], or water company threatened to shut off services in your home in past 12Mo No [employer] Are you now , , , , never or living with a partner? [employer] Do you feel stress - tense, restless, nervous, or anxious, or unable to sleep at night because your mind is troubled all the time - these days [OSQ] To some extent [employer] (I/We) worried wheth er (my/our) food would run out before (I/we) got money to buy more. Never true [employer] Medical Equipment Procedure Code Equipment Code Equipment Origin al Text Equipment Identifier Dates [id number] Start: 03-19-2020 End: 08-14-2024 Comment on above: TEST BLOOD SUGARS 6 TIMES DAILY; E 10.29, IDDM, USE 4 PEN NEEDLES DA MARICRUZ FOR INSULIN PEN USE TEST BLOOD SUGARS 6 TIMES DAILY SURE COMFORT PEN NEEDLES 31G X 8 MM [facility] [id number] Start: 09-01-2018 1 each by Other route 3 times daily. Use as instructed E11.9 [id number] Start: 05-02-2022 TEST BLOOD SUGAR S 6 TIMES DAILY; E 10.29, IDDM, [id number] Start: 01-21-2022 Sure Comfort Pen [place] [facility] X 8 [facility] [id number] Start: 01-21-2022 TEST BLOOD SUGAR S 6 TIMES DAILY; E 10.29, IDDM, [id number] Start: 11-08-2022 End: 06-21-2023 USE 4 PEN NEEDLE S DAILY FOR INSULIN PEN USE [id number] Start: 11-08-2022 End: 01-29-2024 TEST BLOOD SUGAR S 6 TIMES DAILY; E 10.29, IDDM, [id number] Start: 06-22-2023 End: 05-06-2024 USE 4 PEN NEEDLE S DAILY, FOR INSULIN PEN USE [id number] Start: 01-29-2024 TEST BLOOD SUGAR S 6 TIMES DAILY; E 10.29, IDDM, [id number] Start: 05-06-2024 Goals Date Patient Goal Desired Activity /State Functional Status Date Assessment Result Facility 07-28-2014 Are you deaf, or do you have serious difficulty hearing No 07/28/2014 9:57 AM EDT LarissaGlenwendymariam [facility] 07-28-2014 Are you blind, or do you have serious difficulty seeing, even when wearing glasses No 07/28/2014 9:57 AM EDT BrittanysteffCarol [facility] 07-28-2014 Do you have serious difficulty walking or climbing stairs No 07/28/2014 9:57 AM EDT BrittanysteffGlenwendymariam [facility] 07-28-2014 Do you have difficul ty dressing or bathing No 07/28/2014 9:57 AM EDT LarissaGlenwendymariam [facility] 07-28-2014 Because of a physica l, mental, or emotional condition, do you have difficulty doing errands alone such as visiting a physician's office or shopping No 07/28/2014 9:57 AM EDT LarissaGlenwendymariam [facility] Mental Status Date Assessment Result Facility 10-20-2021 Cognitive function Appropriate;F ollows Commands;Drowsy [facility] Work Phone: 10-20-2021 Cognitive function Arousable To Voice/Nam e [facility] Work Phone: 07-28-2014 Because of a physica l, mental, or emotional condition, do you have serious difficulty concentrating, remembering, or making decisions No 07/28/2014 9:57 AM EDT Larissa Glenpauline [facility] Clinical Notes 07-28-2014 to 08-14-2024 Lori Champion MA - 08/14/2024 1:15 PM Angelica Garner MD - 08/14/2024 1:15 PM EDTTelephone Encounter - Mary Stallings RN - 07/08/2024 9:51 AM Angelica Garner MD - 06/26/2024 9:45 AM EDT Note Date & Type Note Facility 08-14-2024 History of Presen t illness Narrative Licensed Appraiser was offered to 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 Patient declined offer of wellness specialist Chief Complaint Patient presents with Vaginal Discharge Vaginal odor and discharge HPI: The patient has a complaint of a vaginal discharge. It has been going on for over a year. It is a light brown color. She has DM and recent hgb A1C is 9.1. She has had yeast in the past but denies any itching with this. We did an US last month due to the brown color of the discharge to make sure it wasn't PMB. US showed her endometrial stripe was only 2.6 mm making hyperplasia very unlikely. Patient is distressed about the discharge History: OB History Para Term AB Living 0 0 0 0 0 0 SAB IAB Ectopic Multiple Live Births 0 0 0 0 0 Medical History[1] Surgical History[2] Family History[3] Allergies[4] Current Medications[5] Physical Exam: BP 124/68 Ht 5' 5 (1.651 m) Wt 133 lb (60.3 kg) BMI 22.13 kg/m Physical Exam Constitutional: She is oriented to person, place, and time. Genitourinary: External genitalia: There is no rash or lesion on the right labia. There is no rash or lesion on the left labia. Small amount of off white caking in between labia anteriorly- possible yeast? Urethral Meatus: Normal in appearance. Urerthra: Nontender. Bladder: Nontender. Vagina: atrophic and narrow introitus. No discharge noted in vaginal vault, no fissures palpated or seen, though both exams are limited secondary to the patient's discomfort with exam. Cervix: No lesions or friability. Uterus: non tender Anus and Perineum: Normal in appearance. No lesions. Skin: Skin is warm and dry. Assessment and Plan: Franky was seen today for vaginal discharge. Diagnoses and all orders for this visit: Vaginal discharge (Primary) - Sureswab(R) Advanced Vaginitis, TMA ([facility]) Exam reveals no obvious source for discharge, patient requesting repeat swab today to check for BV and yeast. Could still be postmenopausal bleeding, sometimes can have spotting even if lining is thin. Just because hyperplasia risk is low, doesn't mean the brown tinge isn't from spotting. Prisca Garner M.D. 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 Burrell Essential hypertension 2009 nml ECHO 2023 H/O colonoscopy 09/2021 Dr. Олег boone ds, due 2031 History of herpes genitalis History of right breast cancer 2004 s/p lumpectomy Hx antineoplastic chemo Hypercholesterolemia Osteopenia 02/2022 at [facility], FRAX 1.7%/14% Personal history of irradiation Type 1 diabetes mellitus (HCC) 1974 [facility] [2] Past Surgical History: Procedure Laterality Date BREAST LUMPECTOMY Right 2004 [place] Breast COLONOSCOPY 09/2021 Dr. Олег boone ds- due 2031 COLONOSCOPY 2006 ESOPHAGOGASTRODUODENOSCOPY 09/2021 Esophageal candidiasis [3] Family History Problem Relation Name Age of Onset Other Mother in 90s Coronary artery disease Father acute DC, at age 94 No Known Problems Sister Parkinsonism Brother 75 Breast cancer Mother's Sister [4] No Known Allergies [5] Current Outpatient Medications: Blood Glucose Monitoring Suppl (FreeStyle Lite) device, Inject 1 each under the skin 3 times daily. Use as instructed E11.9, Disp: 1 each, Rfl: 0 cholecalciferol (Vitamin D-3) 50 MCG (1999 UT) capsule, Take 2,000 Units by mouth in the morning., Disp: , Rfl: FREESTYLE LITE test strip, 1 each by Other route 3 times daily. Use as instructed E11.9, Disp: 200 each, Rfl: 1 indapamide (Lozol) 2.5 MG tablet, Take 1 tablet (2.5 mg) by mouth every morning., Disp: 30 tablet, Rfl: 11 insulin glargine (Lantus SoloStar) 100 UNIT/ML pen, Inject 11 Units under the skin., Disp: , Rfl: insulin lispro (HumaLOG) 100 UNIT/ML injection, Inject subcutaneously 10 units three times daily at meals., Disp: , Rfl: Multiple Vitamin (MULTIVITAMIN ADULT PO), Take by mouth., Disp: , Rfl: Sure Comfort Pen [place] 31G X 8 MM [facility], , Disp: , Rfl: triamcinolone (Kenalog) 0.1 % cream, Apply topically 2 times daily., Disp: , Rfl: atorvastatin (Lipitor) 10 MG tablet, Take 1 tablet (10 mg) by mouth daily for 90 doses., Disp: 90 tablet, Rfl: 1 lisinopril 40 MG tablet, Take 1 tablet (40 mg) by mouth daily for 90 doses., Disp: 90 tablet, Rfl: 1 venlafaxine XR (Effexor XR) 37.5 MG 24 hr capsule, Take 1 capsule (37.5 mg) by mouth daily. Do not crush or chew., Disp: 30 capsule, Rfl: [address] in this encounter [facility] 07-08-2024 Telephone encounter Note Form atting of this note might be different from the original. S: Patient spoke with [facility] nurse regarding vaginal odor and discharge. B: Onset of symptoms since worse the last over year. A: Having an increased discharge odor and dark discharge, had an ultrasound and everything was negative. R: Appointment scheduled. Would like to keep the same physician and location, scheduled at the earliest available , address given to the patient, instructed to bring photo ID, insurance info and medication list to the appointment. Patient understands care advice. No further needs at this time. Patient instructed to call back with new or worsening symptoms. Reason for Disposition MODERATE-SEVERE itching (i.e., interferes with school, work, or sleep) Protocols used: Vaginal [id number] [facility] 07-08-2024 Miscellaneous Notes Formattin g of this note might be different from the original. S: Patient spoke with [facility] nurse regarding vaginal odor and discharge. B: Onset of symptoms since worse the last over year. A: Having an increased discharge odor and dark discharge, had an ultrasound and everything was negative. R: Appointment scheduled. Would like to keep the same physician and location, scheduled at the earliest available , address given to the patient, instructed to bring photo ID, insurance info and medication list to the appointment. Patient understands care advice. No further needs at this time. Patient instructed to call back with new or worsening symptoms. Reason for Disposition MODERATE-SEVERE itching (i.e., interferes with school, work, or sleep) Protocols used: Vaginal [id number] documented in this encounter [facility] 07-08-2024 Telephone encounter Note Form atting of this note is different from the original. Name of caller: Cyndee Contact phone number: [phone] Relationship to Patient: [facility] Occupational Therapy Provider: Dr. Gómez Practice: [facility] Chief Complaint/Reason for Call: Patient cancelled last visit for discharge and the visit will be 07/09/24 now. States as long as agreeable no need to return call. FYI Best time of day caller can be reached: any Patient advised that office/PCP has 24-48 business hours to return their call: N/A [facility] 07-08-2024 Miscellaneous Notes Formattin g of this note is different from the original. Name of caller: Cyndee Contact phone number: [phone] Relationship to Patient: [facility] Occupational Therapy Provider: Dr. Gómez Practice: [facility] Chief Complaint/Reason for Call: Patient cancelled last visit for discharge and the visit will be 07/09/24 now. States as long as agreeable no need to return call. FYI Best time of day caller can be reached: any Patient advised that office/PCP has 24-48 business hours to return their call: N/A Name of caller: Cyndee Contact phone number: [phone] Relationship to Patient: [facility] Occupational Therapy Provider: Dr. Gómez Practice: [facility] Chief Complaint/Reason for Call: Cyndee informing she will be extending one more visit for patient next week. States patient has had shower grab bars installed. States as long as agreeable no need to return call. Please advise. Best time of day caller can be reached: any Patient advised that office/PCP has 24-48 business hours to return their call: N/A documented in this encounter [facility] [facility]ave 06-26-2024 History of Presen t illness Narrative Chief Complaint Patient presents with Follow-up HPI: Patient is here today to discuss ultrasound. 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 Burrell Essential hypertension 2009 nml ECHO 2023 H/O colonoscopy 09/2021 Dr. Олег boone ds, due 2031 History of herpes genitalis History of right breast cancer 2004 s/p lumpectomy Hx antineoplastic chemo Hypercholesterolemia Osteopenia 02/2022 at [facility], FRAX 1.7%/14% Personal history of irradiation Type 1 diabetes mellitus (HCC) 1974 [facility] Past Surgical History: Procedure Laterality Date BREAST LUMPECTOMY Right 2004 CA Breast COLONOSCOPY 09/2021 Dr. Олег boone ds- due 2031 COLONOSCOPY 2006 ESOPHAGOGASTRODUODENOSCOPY 09/2021 Esophageal candidiasis Family History Problem Relation Name Age of Onset Other Mother in 90s Coronary artery disease Father acute DC, at age 94 No Known Problems Sister Parkinsonism Brother 75 Breast cancer Mother's Sister Allergies: No Known Allergies Medications: Current Outpatient Medications: atorvastatin (Lipitor) 10 MG tablet, Take 1 tablet (10 mg) by mouth daily for 90 doses., Disp: 90 tablet, Rfl: 1 Blood Glucose Monitoring Suppl (FreeStyle Lite) device, Inject 1 each under the skin 3 times daily. Use as instructed E11.9, Disp: 1 each, Rfl: 0 cholecalciferol (Vitamin D-3) 50 MCG (1999 UT) capsule, Take 2,000 Units by mouth in the morning., Disp: , Rfl: FREESTYLE LITE test strip, 1 each by Other route 3 times daily. Use as instructed E11.9, Disp: 200 each, Rfl: 1 indapamide (Lozol) 2.5 MG tablet, Take 1 tablet (2.5 mg) by mouth every morning., Disp: 30 tablet, Rfl: 11 insulin glargine (Lantus SoloStar) 100 UNIT/ML pen, Inject 11 Units under the skin., Disp: , Rfl: insulin lispro (HumaLOG) 100 UNIT/ML injection, Inject subcutaneously 10 units three times daily at meals., Disp: , Rfl: lisinopril 40 MG tablet, Take 1 tablet (40 mg) by mouth daily for 90 doses., Disp: 90 tablet, Rfl: 1 Multiple Vitamin (MULTIVITAMIN ADULT PO), Take by mouth., Disp: , Rfl: Sure Comfort Pen [place] 31G X 8 MM [facility] [place], , Disp: , Rfl: triamcinolone (Kenalog) 0.1 % cream, Apply topically 2 times daily., Disp: , Rfl: glucose blood (FREESTYLE LITE) test strip, TEST BLOOD SUGARS 6 TIMES DAILY; E 10.29, IDDM,, Disp: , Rfl: venlafaxine XR (Effexor XR) 37.5 MG 24 hr capsule, Take 1 capsule (37.5 mg) by mouth daily. Do not crush or chew., Disp: 30 capsule, Rfl: 1 Assessment and Plan: Franky was seen today for follow-up. Diagnoses and all orders for this visit: PMB (postmenopausal bleeding) (Primary) Stripe thin, unlikely hyperplasia. No EMB indicated at this time. Patient reassured documented in this encounter [facility] 06-24-2024 Telephone encounter Note Form atting of this note might be different from the original. Name of caller: Cyndee Contact phone number: [phone] Relationship to Patient: Hillary [facility] Occupational Therapy Provider: Dr. Gómez Practice: [facility] Chief Complaint/Reason for Call: Cyndee informing she will be extending one more visit for patient next week. States patient has had shower grab bars installed. States as long as agreeable no need to return call. Please advise. Best time of day caller can be reached: any Patient advised that office/PCP has 24-48 business hours to return their call: N/A [facility] 06-20-2024 Evaluation note Diagnosis Onset Date Resolution High cholesterol chronic June 20, 2024 1:45pm Hypertension chronic June 20 1:45pm Lower extremity edema chronic June 20, 2024 1:45pm Type 1 diabetes mellitus with hyperglycemia chronic June 20, 2024 1:45pm Venous insufficiency chronic June 20, 2024 1:45pm [facility] Work Phone: 1(259) 711-749305-01-2025 Telephone encounter Note* Telephone Encounter - Nazia Hanley - 06/20/2024 11:19 AM EDT Initiated PA for Blood-Glucose Sensor (DEXCOM G7 SENSOR) through [employer] Questions Completed/attached notes Waiting for determination Nazia Casanova Prior [employer] [facility] [place] [facility]05-01-2025 Miscellaneous Notes* Telephone Encounter - Nazia Hanley - 06/20/2024 11:19 AM EDT Initiated PA for Blood-Glucose Sensor (DEXCOM G7 SENSOR) through [employer] Questions Completed/attached notes Waiting for determination Nazia Casanova Prior [employer] Endocrinology [facility] Metabolism [place] documented in [facility]30[facility] Instructions* Patient Instructions* Michael Rodriguez MD - 06/19/2024 10:57 AM EDT Get labs done at [facility]. Schedule bone density test. Will call with results. A1C 9.1% Get DexCom G7 sensor. See me again in 6 months. BONE MINERAL DENSITY PATIENT INSTRUCTIONS Bone mineral density testing measures the amount of calcium in certain parts of your bones. This information determines how strong your bones are. The test is used to detect osteoporosis, a disease in which the bone's mineral content and density are low, increasing a person's risk of fractures. Thelumbar spine (lower back) and the hip are the skeletal sites usually examined. For the test, remember that: 1. You cannot take this test if you are . 2. Eat a normal diet on the day of the test. 3. Take your medications as you normally would. 4. DO NOT take calcium supplements (such as Tums) for 24 hours before the test. 5. On the day of the test, leave valuables (jewelry or credit cards) at home. 6. The test should be performed prior to oral, rectal or IV contrast studies, or at least 7 days after any of these studies. For the test, you may be asked to wear a hospital gown. You will lie on your back, on a padded table, in a comfortable position. Generally, you can resume your usual activities immediately. documented in this [facility]Prom[facility]04-[facility]25 History of Present illness Narrative* Michael Rodriguez MD - 06/19/2024 10:20 AM EDT Follow-up 69 year-old female, patient of Dr. Norberto Gómez, with type 1 diabetes mellitus since 1974, osteopenia, hypertension, hyperlipidemia. She continues multiple daily insulin injections (MDII): Humalog KwikPen with Lantus SoloStar at bedtime. She continues to carbohydrate count (1:10), and use correction ratio of 1:50 for hyperglycemic excursions. Blood sugars remain labile. She is checking blood sugars, mostly before meals, using an AccuChek [place] meter . She did not bring blood sugarsin for review today. Medication list, insulin doses reviewed with the patient, reconciled. Stable background diabetic retinopathy on her last diabetic eye exam in 07/2023. Non-smoker, occasional alcohol use. NKDA. Usual adult height was 65.25. She stopped taking Fosamax weekly, had been on for over5 years. No fractures. Had a flu shot this past (2023) fall. No recent hypoglycemia in the middle of the night. No interval height loss or fractures. Fasting readings are being checked. Not checking a fter meals as much. Has had COVID vaccination. Current Outpatient Medications on File Prior to Visit Medication Sig insulin lispro (HUMALOG KWIKPEN INSULIN) 100 unit/mL Inject 5 Units subcutaneously three times a day before meals. CORRECTION DOSES 1:50 OVER 150, UP TO 30 UNITS DAILY insulin glargine (LANTUS SOLOSTAR U-100 INSULIN) 100 unit/mL (3 mL) Inject 13 Units subcutaneously daily at bedtime. blood sugar diagnostic (FREESTYLE LITE STRIPS) test strip TEST BLOOD SUGARS 6 TIMES DAILY; E 10.29,IDDM, insulin needles, DISPOSABLE, (SURE COMFORT PEN NEEDLE) 31 gauge x 5/16 USE 4 PEN NEEDLES DAILY, FOR INSULIN PEN USE lisinopril (ZESTRIL) 40 mg tablet Take 1 tablet by mouth once daily. atorvastatin (LIPITOR) 10 mg tablet take 1 tablet daily Cholecalciferol, Vitamin D3, (VITAMIN D-3) 50 mcg (2,000 unit) cap Take 1 capsule by mouth once daily. furosemide (LASIX) 20 mg tablet Take 1 tablet by mouth once daily. FLUoxetine HCl 20 mg tablet Take 1 tablet by mouth once daily. Blood-Glucose Meter (FREESTYLE LITE METER) monitoring kit Use to glucose as directed. Indapamide 2.5 mg every day Review of patient's allergies indicates: No Known Allergies Review of systems: Patient notes no weight loss, fever, fatigue, weakness, change in balance or sensation, visual problems, hearing changes, dizziness, trouble swallowing, nasal difficulties, shortness of breath, chest pain, change in exertional tolerance, foot or leg problems, skin lesions, abdominal pain, diarrhea, constipation, urinary problems, incontinence, back pain, joint pains, anxiety, depression, insomnia, menstrual difficulties, breast lesions/pain/mass. Remainder of review of systems was unremarkable. BP 159/69 (BP Position: Sitting) Pulse 71 Wt 61.1 kg (134 lb 11.2 oz) SpO2 99% BMI 22.42 kg/m Weight up 5 pounds since 05/2023. General appearance: Well-appearing female, alert, in no acute distress, well- hydrated, well nourished. BP elevated. Repeat BP 124/64 Skin: Skin color, texture, turgor normal, no suspicious rashes or lesions Head: normocephalic, no masses, lesions, tenderness or abnormalities Eyes: Anicteric sclera. Pupils are equally round. Extraocular movements are intact. Ears: not examined Nose/Sinuses: Nares normal. No drainage or sinus tenderness. Oropharynx: Lips, mucosa, and tongue normal, teeth and gums not examined. Neck: Supple, no adenopathy; no visible thyroid enlargement. Lungs: Breathing unlabored. Heart: RRR. No ectopy Abdomen: deferred Musculoskeletal: Spine range of motion not tested. Muscular strength intact, No joint swelling, deformity, or tenderness Neuro: Gait normal. Sensation grossly intact. 2+ edema in LE's Feet:Shoes and socks removed, No deformities, ulcers, calluses, trace DP distal pulses, and intact sensation. A1C today via Afinion was 9.1%. Labs on 04/29/2024 showed creatinine 0.76, glucose 416, normal LFTs, DEXA bone densitometry in 2012 showed T-scores as follows: lumbar 0.0, hip -0.5, femoral neck 0.0. DEXA bone densitometry in 09/2019 showed T-scores as follows: lumbar -0.6, hip - 1.2, femoral neck -1.0. DEXA bone densitometry 02/2022 showed T-scores as follows: lumbar -0.7, hip -0.7, femoral neck -1.5. IMPRESSION: Type 1 diabetes mellitus with retinopathy - slightly improved control. Encouraged her to get glucose sensor. Check urine microalbumin/creatinine ratio. Retinopathy stable. Osteopenia - stable historically, repeat DXA Hypertension - good control. Hyperlipidemia - check lipid panel on atorvastatin 10 mg daily LE edema - mild, now on indapamide Vitamin D deficiency - continue vitamin D3 2000 units every day PLAN: Schedule bone density Get fasting labs done - lipid panel, urine microalbumin/creatinine ratio Get DexCom G7 sensor/roll slicing machine tender Will call with results See us again in 6 months. Michael Rodriguez M.D. I spent a total of 30 minutes on the date of service which included preparing to see the patient, [id number] patient care, completing clinical documentation, performing a medically appropriate examination, counseling and educating the patient/family/caregiver and ordering medications, tests, or procedures. documented in this encounterPromedica [facility] Hospital04-30-2025 NoteHNO ID: [id number] Author: MICHAEL RODRIGUEZ MD Service: ? Author Type: Physician Type: Progress Notes Filed: 06/19/2024 12:56 Note Text: Follow-up 69 year-old female, patient of Dr. Norberto Gómez, with type 1 diabetes mellitus since 1974, osteopenia, hypertension, hyperlipidemia. She continues multiple daily insulin injections (MDII): Humalog KwikPen with Lantus SoloStar at bedtime. She continues to carbohydrate count (1:10), and use correction ratio of 1:50 for hyperglycemic excursions. Blood sugars remain labile. She is checking blood sugars, mostly before meals, using an AccuChek [place] meter . She did not bring blood sugars in for review today. Medication list, insulin doses reviewed with the patient, reconciled. Stable background diabetic retinopathy on her last diabetic eye exam in 07/2023. Non-smoker, occasional alcohol use. NKDA. Usual adult height was 65.25. She stopped taking Fosamax weekly, had been on for over 5 years. No fractures. Had a flu shot this past (2023) fall. No recent hypoglycemia in the middle of the night. No interval height loss or fractures. Fasting readings are being checked. Not checking after meals as much. Has had COVID vaccination. Current Outpatient Medications on File Prior to Visit Medication Sig insulin lispro (HUMALOG KWIKPEN INSULIN) 100 unit/mL Inject 5 Units subcutaneously three times a day before meals. CORRECTION DOSES 1:50 OVER 150, UP TO 30 UNITS DAILY insulin glargine (LANTUS SOLOSTAR U-100 INSULIN) 100 unit/mL (3 mL) Inject 13 Units subcutaneously daily at bedtime. blood sugar diagnostic (FREESTYLE LITE STRIPS) test strip TEST BLOOD SUGARS 6 TIMES DAILY; E 10.29, IDDM, insulin needles, DISPOSABLE, (SURE COMFORT PEN NEEDLE) 31 gauge x 5/16 USE 4 PEN NEEDLES DAILY, FOR INSULIN PEN USE lisinopril (ZESTRIL) 40 mg tablet Take 1 tablet by mouth once daily. atorvastatin (LIPITOR) 10 mg tablet take 1 tablet daily Cholecalciferol, Vitamin D3, (VITAMIN D-3) 50 mcg (2,000 unit) cap Take 1 capsule by mouth once daily. furosemide (LASIX) 20 mg tablet Take 1 tablet by mouth once daily. FLUoxetine HCl 20 mg tablet Take 1 tablet by mouth once daily. Blood-Glucose Meter (FREESTYLE LITE METER) monitoring kit Use to glucose as directed. Indapamide 2.5 mg every day Review of patient's allergies indicates: No Known Allergies Review of systems: Patient notes no weight loss, fever, fatigue, weakness, change in balance or sensation, visual problems, hearing changes, dizziness, trouble swallowing, nasal difficulties, shortness of breath, chest pain, change in exertional tolerance, foot or leg problems, skin lesions, abdominal pain, diarrhea, constipation, urinary problems, incontinence, back pain, joint pains, anxiety, depression, insomnia, menstrual difficulties, breast lesions/pain/mass. Remainder of review of systems was unremarkable. BP 159/69 (BP Position: Sitting) Pulse 71 Wt 61.1 kg (134 lb 11.2 oz) SpO2 99% BMI 22.42 kg/m? Weight up 5 pounds since 05/2023. General appearance: Well-appearing female, alert, in no acute distress, well-hydrated, well nourished. BP elevated. Repeat BP 124/64 Skin: Skin color, texture, turgor normal, no suspicious rashes or lesions Head: normocephalic, no masses, lesions, tenderness or abnormalities Eyes: Anicteric sclera. Pupils are equally round. Extraocular movements are intact. Ears: not examined Nose/Sinuses: Nares normal. No drainage or sinus tenderness. Oropharynx: Lips, mucosa, and tongue normal, teeth and gums not examined. Neck: Supple, no adenopathy; no visible thyroid enlargement. Lungs: Breathing unlabored. Heart: RRR. No ectopy Abdomen: deferred Musculoskeletal: Spine range of motion not tested. Muscular strength intact, No joint swelling, deformity, or tenderness Neuro: Gait normal. Sensation grossly intact. 2+ edema in LE's Feet:Shoes and socks removed, No deformities, ulcers, calluses, trace DP distal pulses, and intact sensation. A1C today via Afinion was 9.1%. Labs on 04/29/2024 showed creatinine 0.76, glucose 416, normal LFTs, DEXA bone densitometry in 2012 showed T-scores as follows: lumbar 0.0, hip -0.5, femoral neck 0.0. DEXA bone densitometry in 09/2019 showed T-scores as follows: lumbar -0.6, hip -1.2, femoral neck -1.0. DEXA bone densitometry 02/2022 showed T-scores as follows: lumbar -0.7, hip -0.7, femoral neck -1.5. IMPRESSION: Type 1 diabetes mellitus with retinopathy - slightly improved control. Encouraged her to get glucose sensor. Check urine microalbumin/creatinine ratio. Retinopathy stable. Osteopenia - stable historically, repeat DXA Hypertension - good control. Hyperlipidemia - check lipid panel on atorvastatin 10 mg daily LE edema - mild, now on indapamide Vitamin D deficiency - continue vitamin D3 2000 units every day PLAN: Schedule bone density Get fasting labs done - lipid panel, urine microalbumin/creatinine ratio (more content not included)...[facility]04-16-2025 Telephone encounter Note* Telephone Encounter - Rimma Moore - 06/05/2024 10:32 AM EDT Name of caller: Ken Contact phone number: [phone] Relationship to Patient: [facility] Provider: Dalia Practice: [facility] Chief Complaint/Reason for Call: Ken said the patient will be seen one more time the week of June 24 to work on bathing. The patient is having new grab bars installed next week. Ken said she doesn't need a call back if you're agreeable? Please advise Best time of day caller can be reached: any Patient advised that office/PCP has 24-48 business hours to return their call: No [id number] Miscellaneous Notes* Telephone Encounter - Rimma Moore - 06/05/2024 10:32 AM EDT Name of caller: Ken Contact phone number: [phone] Relationship to Patient: [facility] Provider: Dalia Practice: [facility] Chief Complaint/Reason for Call: Ken said the patient will be seen one more time the week of June 24 to work on bathing. The patient is having new grab bars installed next week. Ken said she doesn't need a call back if you're agreeable? Please advise Best time of day caller can be reached: any Patient advised that office/PCP has 24-48 business hours to return their call: No documented in this [facility]04-14-2025 Telephone encounter Note* Telephone Encounter - Arianna Guzmanope - 06/03/2024 9:17 AM EDT Name of caller: Franky Contact phone number: [phone] Relationship to Patient: patient Provider: [facility] Practice: [facility] Chief Complaint/Reason for Call: Pt calling to ask if the after visit summary from her 05/29/24 visit can be mailed to her address on file. Please advise. Best time of day caller can be reached: Any Patient advised that office/PCP has 24-48 business hours to return their call: [id number] Miscellaneous Notes* Telephone Encounter - Arianna Kasey - 06/03/2024 9:17 AM EDT Name of caller: Franky Contact phone number: [phone] Relationship to Patient: patient Provider: [facility] Practice: [facility] Chief Complaint/Reason for Call: Pt calling to ask if the after visit summary from her 05/29/24 visit can be mailed to her address on file. Please advise. Best time of day caller can be reached: Any Patient advised that office/PCP has 24-48 business hours to return their call: documented in this [place] [address]-09-2025 History of Present illness Narrative* Prisca Garner MD - 05/29/2024 11:00 AM EDT Franky Villanueva 05/29/2025 69 y.o. Primary Care Physician: Norberto Gómez DO Chief Complaint Patient presents with New Patient Est. Care, annual exam,brown discharge x1 year HPI : Franky Villanueva is a 69 y.o. female here for annual exam She is postmenopausal. She has been having a brownish discharge on and off for about a year. In thepast she was told she might have Gardenella. She has a long hx of DM and has had many yeats infections in the past, does not think that is what this is. She has some odor to it, but no itch. She is not sexually active, . She had a PCP that did her breast exam and pap smears for years, but he retired and her new PCP does not do those so she is here Gynecologic History: Vasomotor symptoms: no Patient is not on hormone replacement therapy Sexually Active: No Vaginal dryness: No Preventative Health Testing: Date of Last Pap Smear: 05/2021 neg Abnormal Pap Smear History: none per pt Date of Last Mammogram: neg 03/2024 (has hx of right breast cancer in 2004, had lumpectomy and has been fine since.) Date of Last Colonoscopy: 2021 Date of Last Bone Density: 02/2022 at [facility], in [facility]- osteopenia (FRAX 1.7%/14%) OB History Para Term AB Living SAB IAB Ectopic Multiple Live Births 0 Past Medical History: Diagnosis Date Anxiety and depression fci prozac Breast cancer screening by mammogram 03/2024 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 Burrell Essential hypertension 2009 nml ECHO 2023 H/O colonoscopy 09/2021 Dr. Олег boone ds, due 2031 History of herpes genitalis History of right breast cancer 2004 s/p lumpectomy Hx antineoplastic chemo Hypercholesterolemia Osteopenia 02/2022 at [facility], FRAX 1.7%/14% Personal history of irradiation Type 1 diabetes mellitus (HCC) 1974 [place] Past Surgical History: Procedure Laterality Date BREAST LUMPECTOMY Right 2004 [place] Breast COLONOSCOPY 09/2021 Dr. Олег boone ds- due 2031 COLONOSCOPY 2006 ESOPHAGOGASTRODUODENOSCOPY 09/2021 Esophageal candidiasis Family History Problem Relation Name Age of Onset Other Mother in 90s Coronary artery disease Father acute DC, at age 94 No Known Problems Sister Parkinsonism Brother 75 Breast cancer Mother's Sister MEDICATIONS: Current Outpatient Medications Medication Sig Dispense Refill Blood Glucose Monitoring Suppl (FreeStyle Lite) device Inject 1 each under the skin 3 times daily. Use as instructed E11.9 1 each 0 cholecalciferol (Vitamin D-3) 50 MCG (2000 UT) capsule Take 2,000 Units by mouth in the morning. FREESTYLE LITE test strip 1 each by Other route 3 times daily. Use as instructed E11.9 200 each 1 glucose blood (FREESTYLE LITE) test strip TEST BLOOD SUGARS 6 TIMES DAILY; E 10.29, IDDM, indapamide (Lozol) 2.5 MG tablet Take 1 tablet (2.5 mg) by mouth every morning. 30 tablet 11 insulin glargine (Lantus SoloStar) 100 UNIT/ML pen Inject 11 Units under the skin. insulin lispro (HumaLOG) 100 UNIT/ML injection Inject subcutaneously 10 units three times daily at meals. Multiple Vitamin (MULTIVITAMIN ADULT PO) Take by mouth. Sure Comfort Pen [place] 31G X 8 MM [facility] [place] triamcinolone (Kenalog) 0.1 % cream Apply topically 2 times daily. venlafaxine XR (Effexor XR) 37.5 MG 24 hr capsule Take 1 capsule (37.5 mg) by mouth daily. Do not crush or chew. 30 capsule 1 atorvastatin (Lipitor) 10 MG tablet Take 1 tablet (10 mg) by mouth daily for 90 doses. 90 tablet 1 lisinopril 40 MG tablet Take 1 tablet (40 mg) by mouth daily for 90 doses. 90 tablet 1 No current facility-administered medications for this visit. ALLERGIES: Allergies as of 05/29/2024 (No Known Allergies) REVIEW OF SYSTEMS: CONSTIUTIONAL: No weight change or fatigue. No fever or chills. No changes in appetite. CV: No chest pain, palpitations, or syncope. RESPIRATORY: No SOB, cough, or wheezing. BREAST: No breast abnormalities or lumps. GI: No heartburn, nausea, vomiting, diarrhea, constipation, bloating or bowel changes. No blood or mucous with bowel movements or melena. : No dysuria, frequency, hesitancy, urgency, hematuria or nocturia. NEURO: No migraines, seizure hx, or weakness. DERM: No rash or itching. HEME and LYMPH : No lymphoma or abnormal bleeding history PHYSICAL EXAM: Vitals: 05/29/24 1110 BP: 135/70 Pulse: 73 Weight: 133 lb (60.3 kg) Height: 5' 5 (1.651 m) Body mass index is 22.13 kg/m . GENERAL EXAM CONSTITUTIONAL: no acute distress CARDIOVASCULAR: no edema LUNGS: normal effort ABDOMEN:soft, non-tender, non-distended NEUROLOGICAL: no gross motor or sensory deficits noted MUSCULOSKETAL: normal gait, no cyanosis PSYCHIATRIC: normal mood and affect, A&O x3 [employer]ER [employer] NET EXAM: BREASTS: normal, no masses. Scar on right breast in UOQ, mildly tender to palpation on scar EXTERNAL GENITALIA: normal female structures, some caked yellow discharge along clitoral lane VAGINA: no lesions, atrophic, narrow introitus (used smallest yellow spec), no blood seen CERVIX: no lesions, no cervical motion tenderness, normal appearance, scant discharge UTERUS: normal mobility, nontender, normal size, shape and consistency ADNEXA: normal, non tender no masses URETHRA: normal. nontender BLADDER: non tender PELVIC SUPPORT DEFECTS: normal support of vagina, uterus, and bladder ANUS/PERINEUM: no hemorrhoids, masses or warts noted ASSESSMENT/PLAN: Franky was seen today for new patient. Diagnoses and all orders for this visit: PMB (postmenopausal bleeding) (Primary) - US pelvis transvaginal; Future Vaginal discharge - Sureswab(R) Advanced Vaginitis, TMA ([facility]) Follow up in about 1 year (around 05/29/2025) for annual. Swab collected today, since discharge is brown, would like to do PMB workup with pelvic US. Will scheduled this at checkout. Discussed pap guidelines and routine gynecologic preventative care/screening. Discussed no need forpaps given no hx of abnormal and greater then 65 years old. Self breast exam discussed as well as recommendation for yearly clinical breast exam and mammogram. Weight management through healthy diet and regular exercise reviewed. Advised use of MVI and vit D supplementation, calcium through diet if able. Bone density scan recommended at age 65, earlier if risk factors for osteoporosis. Colonoscopy recommended for women over 45, earlier if a family history. Routine health maintenance per patient's PCP as well. Prisca Garner M.D. 05/29/2024 at 11:55 AM (Electronically Signed) documented in this [facility]04-09-2025 History of Present illness Narrative* Prisca Garner MD - 05/29/2024 11:00 AM EDT Franky Villanueva 05/29/2025 69 y.o. Primary Care Physician: Norberto Gómez DO Chief Complaint Patient presents with New Patient Est. Care, annual exam,brown discharge x1 year HPI : Franky Villanueva is a 69 y.o. female here for annual exam She is postmenopausal. She has been having a brownish discharge on and off for about a year. In thepast she was told she might have Gardenella. She has a long hx of DM and has had many yeats infections in the past, does not think that is what this is. She has some odor to it, but no itch. She is not sexually active, . She had a PCP that did her breast exam and pap smears for years, but he retired and her new PCP does not do those so she is here Gynecologic History: Vasomotor symptoms: no Patient is not on hormone replacement therapy Sexually Active: No Vaginal dryness: No Preventative Health Testing: Date of Last Pap Smear: 05/2021 neg Abnormal Pap Smear History: none per pt Date of Last Mammogram: neg 03/2024 (has hx of right breast cancer in 2004, had lumpectomy and has been fine since.) Date of Last Colonoscopy: 2021 Date of Last Bone Density: 02/2022 at [facility], in [facility]- osteopenia (FRAX 1.7%/14%) OB History Para Term AB Living SAB IAB Ectopic Multiple Live Births 0 Past Medical History: Diagnosis Date Anxiety and depression fci prozac Breast cancer screening by mammogram 03/2024 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 Burrell Essential hypertension 2009 nml ECHO 2023 H/O colonoscopy 09/2021 Dr. Олег boone ds, due 2031 History of herpes genitalis History of right breast cancer 2005 s/p lumpectomy Hx antineoplastic chemo Hypercholesterolemia Osteopenia 02/2022 at [facility], FRAX 1.7%/14% Personal history of irradiation Type 1 diabetes mellitus (HCC) 1974 [facility] Past Surgical History: Procedure Laterality Date BREAST LUMPECTOMY Right 2005 [place] Breast COLONOSCOPY 09/2021 Dr. Taylor- paolo ds- due 2031 COLONOSCOPY 2006 ESOPHAGOGASTRODUODENOSCOPY 09/2021 Esophageal candidiasis Family History Problem Relation Name Age of Onset Other Mother in 90s Coronary artery disease Father acute DC, at age 94 No Known Problems Sister Parkinsonism Brother 75 Breast cancer Mother's Sister MEDICATIONS: Current Outpatient Medications Medication Sig Dispense Refill Blood Glucose Monitoring Suppl (FreeStyle Lite) device Inject 1 each under the skin 3 times daily. Use as instructed E11.9 1 each 0 cholecalciferol (Vitamin D-3) 50 MCG (2000 UT) capsule Take 2,000 Units by mouth in the morning. FREESTYLE LITE test strip 1 each by Other route 3 times daily. Use as instructed E11.9 200 each 1 glucose blood (FREESTYLE LITE) test strip TEST BLOOD SUGARS 6 TIMES DAILY; E 10.29, IDDM, indapamide (Lozol) 2.5 MG tablet Take 1 tablet (2.5 mg) by mouth every morning. 30 tablet 11 insulin glargine (Lantus SoloStar) 100 UNIT/ML pen Inject 11 Units under the skin. insulin lispro (HumaLOG) 100 UNIT/ML injection Inject subcutaneously 10 units three times daily at meals. Multiple Vitamin (MULTIVITAMIN ADULT PO) Take by mouth. Sure Comfort Pen [place] 31G X 8 MM [facility] [place] [place] triamcinolone (Kenalog) 0.1 % cream Apply topically 2 times daily. venlafaxine XR (Effexor XR) 37.5 MG 24 hr capsule Take 1 capsule (37.5 mg) by mouth daily. Do not crush or chew. 30 capsule 1 atorvastatin (Lipitor) 10 MG tablet Take 1 tablet (10 mg) by mouth daily for 90 doses. 90 tablet 1 lisinopril 40 MG tablet Take 1 tablet (40 mg) by mouth daily for 90 doses. 90 tablet 1 No current facility-administered medications for this visit. ALLERGIES: Allergies as of 05/29/2024 (No Known Allergies) REVIEW OF SYSTEMS: CONSTIUTIONAL: No weight change or fatigue. No fever or chills. No changes in appetite. CV: No chest pain, palpitations, or syncope. RESPIRATORY: No SOB, cough, or wheezing. BREAST: No breast abnormalities or lumps. GI: No heartburn, nausea, vomiting, diarrhea, constipation, bloating or bowel changes. No blood or mucous with bowel movements or melena. : No dysuria, frequency, hesitancy, urgency, hematuria or nocturia. NEURO: No migraines, seizure hx, or weakness. DERM: No rash or itching. HEME and LYMPH : No lymphoma or abnormal bleeding history PHYSICAL EXAM: Vitals: 05/29/24 1110 BP: 135/70 Pulse: 73 Weight: 133 lb (60.3 kg) Height: 5' 5 (1.651 m) Body mass index is 22.13 kg/m . GENERAL EXAM CONSTITUTIONAL: no acute distress CARDIOVASCULAR: no edema LUNGS: normal effort ABDOMEN:soft, non-tender, non-distended NEUROLOGICAL: no gross motor or sensory deficits noted MUSCULOSKETAL: normal gait, no cyanosis PSYCHIATRIC: normal mood and affect, A&O x3 [employer] NET EXAM: BREASTS: normal, no masses. Scar on right breast in UOQ, mildly tender to palpation on scar EXTERNAL GENITALIA: normal female structures, some caked yellow discharge along clitoral lane VAGINA: no lesions, atrophic, narrow introitus (used smallest yellow spec), no blood seen CERVIX: no lesions, no cervical motion tenderness, normal appearance, scant discharge UTERUS: normal mobility, nontender, normal size, shape and consistency ADNEXA: normal, non tender no masses URETHRA: normal. nontender BLADDER: non tender PELVIC SUPPORT DEFECTS: normal support of vagina, uterus, and bladder ANUS/PERINEUM: no hemorrhoids, masses or warts noted ASSESSMENT/PLAN: Franky was seen today for new patient. Diagnoses and all orders for this visit: Encounter for gynecological examination with abnormal finding (Primary) PMB (postmenopausal bleeding) - US pelvis transvaginal; Future Vaginal discharge - Sureswab(R) Advanced Vaginitis, TMA ([facility]) Follow up in about 1 year (around 05/29/2025) for annual. Swab collected today, since discharge is brown, would like to do PMB workup with pelvic US. Will scheduled this at checkout. Discussed pap guidelines and routine gynecologic preventative care/screening. Discussed no need forpaps given no hx of abnormal and greater then 65 years old. Self breast exam discussed as well as recommendation for yearly clinical breast exam and mammogram. Weight management through healthy diet and regular exercise reviewed. Advised use of MVI and vit D supplementation, calcium through diet if able. Bone density scan recommended at age 65, earlier if risk factors for osteoporosis. Colonoscopy recommended for women over 45, earlier if a family history. Routine health maintenance per patient's PCP as well. Prisca Garner M.D. 06/04/2024 at 7:19 AM (Electronically Signed) documented in this [facility]04-01-2025 NoteReferral and records faxed to Dr. Stallings for patient to get [facility] Telephone encounter Note* Telephone Encounter - Felecia Koroma - 05/21/2024 11:59 AM EDT Referral and records faxed to Dr. Stallings for patient to get scheduled [id number] Miscellaneous Notes* Telephone Encounter - Felecia Koroma - 05/21/2024 11:59 AM EDT Referral and records faxed to Dr. Stallings for patient to get scheduled * Telephone Encounter - Liana Morgan - 05/20/2024 10:45 AM EDT Name of Caller: Rosanne Contact option 2 Reason for Appointment: Rosanne states that the patient has called their office about 10 x to schedule an appointment. Rosanne states that they are missing a lot of information for the referral and hassent over a referral requirement that will need to be completed in order to schedule the patient anappointment. Please review. 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 She stated that they occurred in front of kitchen sink. Patient stated that her sugar had crashed. No injuries reported. Best time of day caller can be reached: any Patient advised that office/PCP has 24-48 business hours to return their call: No documented in this encounterSOhio State University Wexner Medical [id number] Telephone encounter Note* Telephone Encounter - Flory Granado - 05/20/2024 1:24 PM EDT Name of caller: Arina Contact phone number: [phone] Relationship to Patient: Arina [facility] Provider: Dalia Practice: [facility] Chief Complaint/Reason for Call: Arina states she wanted to make provider aware of plan of care. Arina will see patient for occupational therapy once a week for one week, twice a week for two weeks and this is for training safety. Arina states it was a delay to see patient for evaluation due to her schedule being full. Arina states only advise if further questions. Best time of day caller can be reached: any Patient advised that office/PCP has 24-48 business hours to return their call: Yes [facility] [id number] Miscellaneous Notes* Telephone Encounter - Flory Granado - 05/20/2024 1:24 PM EDT Name of caller: Arina Contact phone number: [phone] Relationship to Patient: Arina [facility] Provider: Dalia Practice: [facility] Chief Complaint/Reason for Call: Arina states she wanted to make provider aware of plan of care. Arina will see patient for occupational therapy once a week for one week, twice a week for two weeks and this is for training safety. Arina states it was a delay to see patient for evaluation due to her schedule being full. Arina states only advise if further questions. Best time of day caller can be reached: any Patient advised that office/PCP has 24-48 business hours to return their call: Yes documented in this encounterSOhio State University Wexner Medical [id number] Telephone encounter Note* Telephone Encounter - Liana Morgan - 05/20/2024 10:45 AM EDT Name of Caller: Rosanne Contact option 2 Reason for Appointment: Rosanne states that the patient has called their office about 10 x to schedule an appointment. Rosanne states that they are missing a lot of information for the referral and hassent over a referral requirement that will need to be completed in order to schedule the patient anappointment. Please review. Office Name: [facility] [id number] Telephone encounter Note* Telephone Encounter - Vika Caputo - 05/20/2024 9:51 AM EDT Name of caller: Franky Villanueva Contact phone number: [phone] Relationship to Patient: patient Provider: Dr. Gómez Practice: [facility] Chief Complaint/Reason for Call: Patient requested the referral to Endocrinology be faxed to Dr. Stallings's office, fax number [phone], I did fax the referral. FYI, thank you. Best time of day caller can be reached: Any Patient advised that office/PCP has 24-48 business hours to return their call: N/A [facility] [id number] Miscellaneous Notes* Telephone Encounter - Vika Caputo - 05/20/2024 9:51 AM EDT Name of caller: Franky Villanueva Contact phone number: [phone] Relationship to Patient: patient Provider: Dr. Gómez Practice: [facility] Chief Complaint/Reason for Call: Patient requested the referral to Endocrinology be faxed to Dr. Stallings's office, fax number [phone], I did fax the referral. FYI, thank you. Best time of day caller can be reached: Any Patient advised that office/PCP has 24-48 business hours to return their call: N/A * Telephone Encounter - Arianna Carty - 05/17/2024 9:33 AM EDT To Felecia to follow up * Telephone Encounter - Gabriela Jasso - 05/17/2024 8:44 AM EDT Name of caller: Franky Contact phone number: [phone] Relationship to Patient: patient Provider: Dr. Gómez Practice: [facility] Chief Complaint/Reason for Call: Franky is calling to ask if the referral to Dr. Jose Stallings in [place] can be faxed to her office at . Please advise. Best time of day caller can be reached: Any Patient advised that office/PCP has 24-48 business hours to return their call: No documented in this [facility]03-28-2025 Telephone encounter Note* Telephone Encounter - Lorene Blackwell RN - 05/17/2024 12:06 PM EDT Notified patient of Dr Rodriguez's message. Patient verbalized understanding and all questions were answered. Encounter closed. [facility]03-28-2025 Miscellaneous Notes* Telephone Encounter - Lorene Blackwell RN - 05/17/2024 12:06 PM EDT Notified patient of Dr Rodriguez's message. Patient verbalized understanding and all questions were answered. Encounter closed. * Telephone Encounter - Aby Lockhart MA - 05/16/2024 4:12 PM EDT I left a voice message for patient to call the office for some medication changes from Dr. Rodriguez. * Telephone Encounter - Michael Rodriguez MD - 05/16/2024 2:16 PM EDT Please tell her to increase insulin doses to the following, send in blood sugars for review in one week. Keep May appointment. The following approved medication requests have been transmitted electronically. Requested Prescriptions Signed Prescriptions Disp Refills insulin lispro (HUMALOG KWIKPEN INSULIN) 100 unit/mL 30 mL 3 Sig: Inject 5 Units subcutaneously three times a day before meals. CORRECTION DOSES 1:50 OVER 150, UP TO 30 UNITS DAILY Authorizing Provider: MICHAEL RODRIGUEZ insulin glargine (LANTUS SOLOSTAR U-100 INSULIN) 100 unit/mL (3 mL) 15 mL 3 Sig: Inject 14 Units subcutaneously daily at bedtime. Authorizing Provider: MICHAEL RODRIGUEZ MD * Telephone Encounter - Aby Lockhart MA - 05/15/2024 2:18 PM EDT Received office notes from [facility]. Dr. Gómez is asking for a sooner appt due to patient's current complains. Your sooner appt was given on 06/19/2024. documented in this encounterPromedica Memorial Hospital03-28-2025 Telephone encounter Note * Telephone Encounter - Arianna Carty - 05/17/2024 9:33 AM EDT To Felecia to follow up 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 She stated that they occurred in front of kitchen sink. Patient stated that her sugar had crashed. No injuries reported. Best time of day caller can be reached: any Patient advised that office/PCP has 24-48 business hours to return their call: No [facility] [id number] Telephone encounter Note* Telephone Encounter - Gabriela Jasso - 05/17/2024 8:44 AM EDT Name of caller: Franky Contact phone number: [phone] Relationship to Patient: patient Provider: Dr. Gómez Practice: [facility] Chief Complaint/Reason for Call: Franky is calling to ask if the referral to Dr. Jose Stallings in [place] can be faxed to her office at . Please advise. Best time of day caller can be reached: Any Patient advised that office/PCP has 24-48 business hours to return their call: No [facility] [id number] Telephone encounter Note* Telephone Encounter - Sayda Talavera MA - 05/16/2024 4:17 PM EDT Natasha was left a detailed message and to call the office if any questions. [facility] [id number] Miscellaneous Notes* Telephone Encounter - Sayda Talavera MA - 05/16/2024 4:17 PM EDT Natasha was left a detailed message and to call the office if any questions. * Telephone Encounter - Abiola Calvo RN - 05/16/2024 12:55 PM EDT S: Natasha [facility] clinical medical laboratory manager spoke with CAC nurse regarding medication question B: Onset of symptoms/concern toay A: Patient needs and verbal order for Tylenol 500 MG 2 tablets TID daily. Patient has on her medication profile and has been taking it. Call Natasha [phone]. R: Informed message would be sent to provider for review. No further needs at this time. Reason for Disposition Caller has NON-URGENT medicine question about med that PCP or specialist prescribed and triager unable to answer question Protocols used: Medication Question [id number] documented in this encounterSOhio State University Wexner Medical [id number] Telephone encounter Note* Telephone Encounter - Aby Lockhart MA - 05/16/2024 4:12 PM EDT I left a voice message for patient to call the office for some medication changes from Dr. Rodriguez. [facility]03-27-2025 Telephone encounter Note* Telephone Encounter - Michael Rodriguez MD - 05/16/2024 2:16 PM EDT Please tell her to increase insulin doses to the following, send in blood sugars for review in one week. Keep May appointment. The following approved medication requests have been transmitted electronically. Requested Prescriptions Signed Prescriptions Disp Refills insulin lispro (HUMALOG KWIKPEN INSULIN) 100 unit/mL 30 mL 3 Sig: Inject 5 Units subcutaneously three times a day before meals. CORRECTION DOSES 1:50 OVER 150, UP TO 30 UNITS DAILY Authorizing Provider: MICHAEL RODRIGUEZ insulin glargine (LANTUS SOLOSTAR U-100 INSULIN) 100 unit/mL (3 mL) 15 mL 3 Sig: Inject 14 Units subcutaneously daily at bedtime. Authorizing Provider: MICHAEL RODRIGUEZ MD [facility]03-27-2025 Telephone encounter Note* Telephone Encounter - Abiola Calvo RN - 05/16/2024 12:55 PM EDT S: [facility] clinical medical laboratory manager spoke with [facility] nurse regarding medication question B: Onset of symptoms/concern toay A: Patient needs and verbal order for Tylenol 500 MG 2 tablets TID daily. Patient has on her medication profile and has been taking it. Call Natasha [phone]. R: Informed message would be sent to provider for review. No further needs at this time. Reason for Disposition Caller has NON-URGENT medicine question about med that PCP or specialist prescribed and triager unable to answer question Protocols used: Medication Question [id number] [facility] [id number] Note* Addendum Note - Norberto Góemz DO - 05/16/2024 11:16 AM EDTAddended by: NORBERTO GÓMEZ on: 05/16/2024 11:16 AM Modules accepted: Orders [facility] [id number] Note* Addendum Note - Norberto Gómez DO - 05/16/2024 11:16 AM EDTAddended by: NORBERTO GÓMEZ on: 05/16/2024 11:16 AM Modules accepted: Orders [facility] [id number] Miscellaneous Notes* Addendum Note - Norberto Gómez DO - 05/16/2024 11:16 AM EDTAddended by: NORBERTO GÓMEZ on: 05/16/2024 11:16 AM Modules accepted: Orders * Addendum Note - Arianna Carty - 05/16/2024 10:02 AM EDTAddended by: ARIANNA CARTY on: 05/16/2024 10:02 AM Modules accepted: Orders * Telephone Encounter - Arianna Carty - 05/16/2024 10:02 AM EDT Referral to Dr Stallings pended for dx and doctor's signature * Telephone Encounter - Kate Ulloa - 05/16/2024 8:46 AM EDT Name of caller: Franky Relationship to patient: patient Contact phone number: [phone] Speciality referral requested for: Endocrinology Diagnosis or reason for referral: diabetes Name of specialist: Dr Radha Stallings in [facility] Fax number [phone] Name of group/practice: NA Patient verified insurance covers referral: Yes Patient insurance: Med A and B Has patient seen this specialist in the past: No Estimated time/date patient last saw the specialist: na Patient is requesting a call when referral is complete. documented in this encounterSOhio State University Wexner Medical [id number] Note* Addendum Note - Arianna Carty - 05/16/2024 10:02 AM EDTAddended by: ARIANNA CARTY on: 05/16/2024 10:02 AM Modules accepted: Orders [facility] [id number] Note* Addendum Note - Arianna Carty - 05/16/2024 10:02 AM EDTAddended by: ARIANNA CARTY on: 05/16/2024 10:02 AM Modules accepted: Orders [facility] [id number] Stallings pended for dx and doctor's signatureSHarbor Beach Community Hospital03-27-2025 Telephone encounter Note* Telephone Encounter - Arianna Carty - 05/16/2024 10:02 AM EDT Referral to Dr Stallings pended for dx and doctor's signature [facility] [id number] Telephone encounter Note* Telephone Encounter - Kate Ulloa - 05/16/2024 8:46 AM EDT Name of caller: Franky Relationship to patient: patient Contact phone number: [phone] Speciality referral requested for: Endocrinology Diagnosis or reason for referral: diabetes Name of specialist: Dr Radha Stallings in [facility] Fax number [phone] Name of group/practice: NA Patient verified insurance covers referral: Yes Patient insurance: Med A and B Has patient seen this specialist in the past: No Estimated time/date patient last saw the specialist: na Patient is requesting a call when referral is complete. [facility] [id number] Telephone encounter Note* Telephone Encounter - Aby Lockhart MA - 05/15/2024 2:18 PM EDT [facility]. Gómez is asking for a sooner appt due to patient's current complains. Your sooner appt was given on 06/19/2024. [facility]03-21-2025 Telephone encounter Note* Telephone Encounter - Michael Rodriguez MD - 05/10/2024 1:46 PM EDT Reviewed. [facility]03-21-2025 Miscellaneous Notes* Telephone Encounter - Michael Rodriguez MD - 05/10/2024 1:46 PM EDT Reviewed. * Telephone Encounter - Aby Lockhart MA - 05/10/2024 11:20 AM EDT Received lab results from [facility]. Placed on docs desk for review. Please advise, thanks. documented in this encounterPromedica Memorial Hospital03-21-2025 Telephone encounter Note * Telephone Encounter - Aby Lockhart MA - 05/10/2024 11:20 AM EDT Received lab results from [facility]. Placed on docs desk for review. Please advise, thanks. [facility]03-21-2025 Miscellaneous Notes* Telephone Encounter - Sayda Talavera MA - 05/10/2024 10:05 AM EDT Please sign * Telephone Encounter - Sayda Talavera MA - 05/10/2024 8:33 AM EDT Left leslie a detailed message and to call the office, if Dr Gómez needs to be signing any forms. * Telephone Encounter - Sayda Talavera MA - 05/09/2024 9:03 AM EDT Left message for leslie to return my call. * Telephone Encounter - Dionne Argueta - 05/08/2024 4:08 PM EDT Name of caller: Leslie Contact phone number: [phone] Relationship to Patient: [facility] Health Care Provider: Dr. Gómez Practice: [facility] Chief Complaint/Reason for Call: Leslie called in requesting uncontrolled diabetes orders for intermediate and PT. States verbal orders were called in but they need the orders signed/ dated and faxed over to start. States if they receive the information by tomorrow they can get patient started on Monday next week. 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 . Please Advise Best time of day caller can be reached: any Patient advised that office/PCP has 24-48 business hours to return their call: No documented in this encounterSOhio State University Wexner Medical [id number] Telephone encounter Note* Telephone Encounter - Sayda Talavera MA - 05/10/2024 10:05 AM EDT Please sign [facility] [id number] Telephone encounter Note* Telephone Encounter - Sayda Talavera MA - 05/10/2024 8:33 AM EDT Left leslie a detailed message and to call the office, if Dr Gómez needs to be signing any forms. [facility] [id number] Telephone encounter Note* Telephone Encounter - Sayda Talavera MA - 05/09/2024 9:03 AM EDT Left message for leslie to return my call. [facility] [id number] Telephone encounter Note* Telephone Encounter - Dionne Argueta - 05/08/2024 4:08 PM EDT Name of caller: Leslie Contact phone number: [phone] Relationship to Patient: [facility] Home Health Care Provider: Dr. Gómez Practice: [facility] Chief Complaint/Reason for Call: Leslie called in requesting uncontrolled diabetes orders for intermediate and PT. States verbal orders were called in but they need the orders signed/ dated and faxed over to start. States if they receive the information by tomorrow they can get patient started on Monday next week. 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 . Please Advise Best time of day caller can be reached: any Patient advised that office/PCP has 24-48 business hours to return their call: No [place] [id number] Telephone encounter Note* Telephone Encounter - Sayda Talavera MA - 05/08/2024 3:54 PM EDT Spoke with leslie and all was addressed [place] [id number] Miscellaneous Notes* Telephone Encounter - Sayda Talavera MA - 05/08/2024 3:54 PM EDT Spoke with leslie and gui was addressed * Telephone Encounter - Eunice Carballo - 05/08/2024 12:12 PM EDT Name of caller: Leslie Contact phone number: [phone] Relationship to Patient: [facility] Provider: Dalia Practice: [facility] Chief Complaint/Reason for Call: Asking for an order to start home health with nursing and also uncontrolled diabetes. Needs updated on her order. Please Advise. Best time of day caller can be reached: Any Patient advised that office/PCP has 24-48 business hours to return their call: Yes documented in this encounterSOhio State University Wexner Medical [id number] Telephone encounter Note* Telephone Encounter - Eunice Carballo - 05/08/2024 12:12 PM EDT Name of caller: Leslie Contact phone number: [phone] Relationship to Patient: Hillary Home Health Provider: Dalia Practice: [facility] Chief Complaint/Reason for Call: Asking for an order to start home health with nursing and also uncontrolled diabetes. Needs updated on her order. Please Advise. Best time of day caller can be reached: Any Patient advised that office/PCP has 24-48 business hours to return their call: Yes [facility] [id number] Telephone encounter Note* Telephone Encounter - Sayda Yousif RN - 05/06/2024 1:31 PM EDT Prescription Refill Information The patient has been identified by name and date of : Yes Caregiver verified no other encounters exist for this prescription request: Yes Caregiver confirmed with patient/requestor that no other refills are due, in the near future, with this provider at this time: Yes The last office visit in the department: 06/16/23 Does the patient have a future office visit with this provider/department: Yes, 07/26/24--with Erin Greer NP Requested Prescriptions Pending Prescriptions Disp Refills blood sugar diagnostic (FREESTYLE LITE STRIPS) test strip 600 Strip 1 Sig: TEST BLOOD SUGARS 6 TIMES DAILY; E 10.29, IDDM, Sayda Yousif RN May 06, 2024 1:31 PM [facility]03-17-2025 Miscellaneous Notes* Telephone Encounter - Sayda Yousif RN - 05/06/2024 1:31 PM EDT Prescription Refill Information The patient has been identified by name and date of : Yes Caregiver verified no other encounters exist for this prescription request: Yes Caregiver confirmed with patient/requestor that no other refills are due, in the near future, with this provider at this time: Yes The last office visit in the department: 06/16/23 Does the patient have a future office visit with this provider/department: Yes, 07/26/24--with Erin Greer NP Requested Prescriptions Pending Prescriptions Disp Refills blood sugar diagnostic (FREESTYLE LITE STRIPS) test strip 600 Strip 1 Sig: TEST BLOOD SUGARS 6 TIMES DAILY; E 10.29, IDDM, Sayda Yousif RN May 06, 2024 1:31 PM documented in this encounterPromedica Memorial Hospital03-14-2025 Telephone encounter Note * Telephone Encounter - Danielle Bess RN - 05/03/2024 9:09 AM EDT S: The patient is calling the CAC about the Cymbalta B: She is asking about frequency R: The instructions read twice daily - this would be about 12 hours apart. I would take one in the morning and then again in the evening. Reason for Disposition Pharmacy calling with prescription question and triager answers question Protocols used: Medication Question [id number] [facility] [id number] Miscellaneous Notes* Telephone Encounter - Danielle Chao RN - 05/03/2024 9:09 AM EDT S: The patient is calling the CAC about the Cymbalta B: She is asking about frequency R: The instructions read twice daily - this would be about 12 hours apart. I would take one in the morning and then again in the evening. Reason for Disposition Pharmacy calling with prescription question and triager answers question Protocols used: Medication Question [id number] documented in this [facility]03-13-2025 Telephone encounter Note* Telephone Encounter - Felecia Koroma - 05/02/2024 10:42 AM EDT Records and referral faxed [facility] [id number] Miscellaneous Notes* Telephone Encounter - Felecia Koroma - 05/02/2024 10:42 AM EDT Records and referral faxed * Telephone Encounter - Arianna Perera - 05/02/2024 10:03 AM EDT Name of caller: Leslie Contact phone number: [phone] Relationship to Patient: [facility] Provider: Practice: [facility] Chief Complaint/Reason for Call: Caller is asking for Face Sheet and office notes from last visit along with insurance information please fax to [phone] Best time of day caller can be reached: any Patient advised that office/PCP has 24-48 business hours to return their call: No documented in this [facility]03-13-2025 Telephone encounter Note* Telephone Encounter - Arianna Perera - 05/02/2024 10:03 AM EDT Name of caller: Leslie Contact phone number: [phone] Relationship to Patient: [facility] Provider: Practice: [facility] Chief Complaint/Reason for Call: Caller is asking for Face Sheet and office notes from last visit along with insurance information please fax to [phone] Best time of day caller can be reached: any Patient advised that office/PCP has 24-48 business hours to return their call: No [place] [id number] NoteReferral to MRI-Head / Homehealth PT / Psychology pended for dx and doctor's signatureSHarbor Beach Community Hospital03-10-2025 Telephone encounter Note* Telephone Encounter - Arianna Machelle - 04/29/2024 4:41 PM EDT Referral to MRI-Head / Homehealth PT / Psychology pended for dx and doctor's signature [facility] [id number] Miscellaneous Notes* Telephone Encounter - Arianna Carty - 04/29/2024 4:41 PM EDT Referral to MRI-Head / Homehealth PT / Psychology pended for dx and doctor's signature documented in this encounterSOhio State University Wexner Medical [id number] History of Present illness Narrative* Norberto Gómez, - 04/29/2024 3:00 PM EDT Images from the original note were not included. [facility] - [address] [facility] [id number] Visit type: Established Patient Reason for Visit: Difficulty Walking (Weak and unsteady on feet , would like life alert ) and Eye Problem (X 2 days both ) Assessment / Plan: Franky was seen today for difficulty walking and eye problem. Diagnoses and all orders for this visit: Ataxia (Primary) Comments: Recurrent, needs MRI of the brain. Orders: - Vitamin B12; Future - Vitamin B12 Primary hypertension Comments: Stable, continue lisinopril and indapamide Orders: - CBC auto differential; Future - Comprehensive metabolic panel; Future - CBC auto differential - Comprehensive metabolic panel Anxiety and depression Comments: Uncontrolled, stop Prozac and changed to Cymbalta, psychology referral Uncontrolled type 1 diabetes mellitus with hyperglycemia (HCC) Comments: Uncontrolled, possible cause of all her problems. Follow-up with endocrinology Diabetic peripheral neuropathy (HCC) Physical deconditioning Comments: Multifactorial, therapy referral, possible gas prover reevaluation Other orders - DULoxetine (Cymbalta) [address] capsule; Take 1 capsule (30 mg) by mouth 2 times daily. Do not crush or chew. 45 Minutes spent on reviewing pertinent medical, surgical, family and social history, patient interview, physical exam, discussion of diagnosis, treatment and work-up options. See above recommendations. Need to exclude a central nervous system illness. MRI ordered Subjective: Patient ID: Franky Villanueva is a 69 y.o. female. HPI uncontrolled type I diabetic with elevated A1c presents with a good friend concerned about multiple issues. She generally has a downward decline with weakness immobility difficulty getting out ofthe house and depression. Having difficulty walking and balance has been poor. No recent falls but having to use a walker at home. Has swollen legs for quite a while. A1c has been over 9 forever. Has chronic lymphedema but that is actually better. She denies headache or diplopia or scotomas. No unilateral numbness of the face arms or legs. She just feels weak and unmotivated. He has been no recent falls or head injuries. She denies neck or back pain. Review of Systems having depression despite being on Prozac for a while. She lost her in the fall 2022. She had does have a few friends checking on her. Blood pressure generally better at home. Glucoses are not near goal. To see endocrinology soon. No unilateral numbness of the face arm or legs. No bowel or bladder incontinence. She denies chest pain or dyspnea. Denies PND orthopnea. Had 1 episode of vomiting but no recurrent problems. No abdominal pain. No melena or blood. No diarrhea. No Known Allergies Current Outpatient Medications on File Prior to Visit Medication Sig Dispense Refill atorvastatin (Lipitor) 10 MG tablet Take 1 tablet (10 mg) by mouth daily for 90 doses. 90 tablet 1 Blood Glucose Monitoring Suppl (FreeStyle Lite) device Inject 1 each under the skin 3 times daily. Use as instructed E11.9 1 each 0 cholecalciferol (Vitamin D-3) 50 MCG (2000 UT) capsule Take 2,000 Units by mouth in the morning. FREESTYLE LITE test strip 1 each by Other route 3 times daily. Use as instructed E11.9 200 each 1 glucose blood (FREESTYLE LITE) test strip TEST BLOOD SUGARS 6 TIMES DAILY; E 10.29, IDDM, indapamide (Lozol) 2.5 MG tablet Take 1 tablet (2.5 mg) by mouth every morning. 30 tablet 11 insulin glargine (Lantus SoloStar) 100 UNIT/ML pen Inject 11 Units under the skin. insulin lispro (HumaLOG) 100 UNIT/ML injection Inject subcutaneously 10 units three times daily at meals. lisinopril 40 MG tablet Take 1 tablet (40 mg) by mouth daily for 90 doses. 90 tablet 1 Multiple Vitamin (MULTIVITAMIN ADULT PO) Take by mouth. Sure Comfort Pen [place] 31G X 8 MM misc triamcinolone (Kenalog) 0.1 % cream Apply topically 2 times daily. [DISCONTINUED] FLUoxetine (PROzac) 20 MG capsule Take 1 capsule (20 mg) by mouth daily. 90 capsule 1 No current facility-administered medications on file prior to visit. 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 Taylor- divert ds- due 2031 COLONOSCOPY 2006 ESOPHAGOGASTRODUODENOSCOPY 09/2021 Esophageal candidiasis Family History Problem Relation Name Age of Onset Other Mother in 90s Coronary artery disease Father acute DC, at age 94 No Known Problems Sister Parkinsonism Brother 75 Breast cancer Mother's Sister Objective: BP (!) 144/78 Pulse 68 Temp 37.1 C (98.7 F) (Temporal) Ht 5' 5 (1.651 m) Wt 144 lb (65.3 kg) SpO2 97% BMI 23.96 kg/m Physical Exam today's exam is actually pretty normal. Pupils equal. Extraocular muscles are intact.All cranial nerves are normal. No weakness of the head arm or legs in any extremity. Toes downgoingand no clonus. No fasciculations Vani's or Babinski. Normal [id number]-[id number] and Romberg testing.Tandem gait was not well done due to sense of unsteadiness. No carotid bruits or neck masses. No thyroid lesions. Normal gag reflex. No adenopathy. Heart is regular without gallops ectopy or murmur. Lungs are clear. Abdomen without pain hepatosplenomegaly masses or bruits. Extremities have mild cracked dry skin and mild edema. It is better than previous exams. There is no clonus. She can walk with no person assist. documented in this [facility]03-05-2025 Telephone encounter Note* Telephone Encounter - Mandi Jimenez RN - 04/24/2024 7:16 AM EST S: Patient's friend, Rola spoke with [facility] nurse regarding overall decline. B: Onset of symptoms started ongoing, but worsening. Patient is a falls risk. A: Reports increased balance and ambulation issues due to the swelling in bilateral lower legs. Over the weekend Rola tried taking her out and patient was not able to ambulate without holding on toJackie for dear life. She is ambulating around the house with a walker, but is very unsteady. Sheis no longer driving, leaving the house, not taking a shower and is now becoming increasingly isolated. Friend states she is spiraling and not thriving. Unsure if diabetes is being controlled. She isvery unsure of herself at this time. Denies recent falls, severe pain or loss of appetite. Rola also reports patient does not have a voice. She has no other cold symptoms as of today, just no voice. R: Insurance verified. Appointment was scheduled for 04/29/24 at [address] Gómez. Instructed to bring insurance card and ID to the visit. Denies COVID symptoms or exposure. Advised to remove clutter/rugs in the home, keep night light on, use of assistive device and change positions slowly. Inregards to laryngitis, warm fluids, lemon, humidifier, salt water gargles and rest voice. Rola understands care advice. No further needs at this time. Instructed to call back with new or worsening symptoms. Reason for Disposition MODERATE weakness (e.g., interferes with work, school, normal activities) and new-onset or getting worse Protocols used: Falls and [id number] [facility] [id number] Miscellaneous Notes* Telephone Encounter - Mandi Jimenez RN - 04/24/2024 7:16 AM EST S: Patient's friend, Rola spoke with [facility] nurse regarding overall decline. B: Onset of symptoms started ongoing, but worsening. Patient is a falls risk. A: Reports increased balance and ambulation issues due to the swelling in bilateral lower legs. Over the weekend Rola tried taking her out and patient was not able to ambulate without holding on toJackie for dear life. She is ambulating around the house with a walker, but is very unsteady. Sheis no longer driving, leaving the house, not taking a shower and is now becoming increasingly isolated. Friend states she is spiraling and not thriving. Unsure if diabetes is being controlled. She isvery unsure of herself at this time. Denies recent falls, severe pain or loss of appetite. Rola also reports patient does not have a voice. She has no other cold symptoms as of today, just no voice. R: Insurance verified. Appointment was scheduled for 04/29/24 at [address] Gómez. Instructed to bring insurance card and ID to the visit. Denies COVID symptoms or exposure. Advised to remove clutter/rugs in the home, keep night light on, use of assistive device and change positions slowly. Inregards to laryngitis, warm fluids, lemon, humidifier, salt water gargles and rest voice. Rola understands care advice. No further needs at this time. Instructed to call back with new or worsening symptoms. Reason for Disposition MODERATE weakness (e.g., interferes with work, school, normal activities) and new-onset or getting worse Protocols used: Falls and [id number] documented in this [facility]02-28-2025 Telephone encounter Note* Telephone Encounter - Codi - 04/19/2024 8:42 AM EST Name of Caller: Franky Relationship to Patient: Patient Contact phone number: [phone] Best time of day caller can be reached: Pt calling back answering machine will come on after 6 beeps; please leave detailed message on answering machine re results if she is unable to answer. Date testing performed/completed: Mammogram 04/16/24 Where or by whom was testing performed: [facility]tran Patient advised that office/PCP has 24-48 business hours to return their call: No [facility] [id number] Miscellaneous Notes* Telephone Encounter - Codi Welsh - 04/19/2024 8:42 AM EST Name of Caller: Franky Relationship to Patient: Patient Contact phone number: [phone] Best time of day caller can be reached: Pt calling back answering machine will come on after 6 beeps; please leave detailed message on answering machine re results if she is unable to answer. Date testing performed/completed: Mammogram 04/16/24 Where or by whom was testing performed: [facility]tr[facility] Patient advised that office/PCP has 24-48 business hours to return their call: No * Telephone Encounter - Dot Tong MA - 04/17/2024 8:40 AM EST Noted * Telephone Encounter - Lucia Krishnan - 04/17/2024 8:22 AM EST Name of Caller: Franky Villanueva Relationship to Patient: Patient Contact phone number: [phone] Best time of day caller can be reached: any Answering machine will come on after 6 beeps; please leave detailed message on answering machine re results if she is unable to answer. Date testing performed/completed: Mammogram 04/16/24 Where or by whom was testing performed: [facility]tr[facility] Patient advised that office/PCP has 24-48 business hours to return their call: Yes documented in this [facility]02-26-2025 Telephone encounter Note* Telephone Encounter - Dot Tong MA - 04/17/2024 8:40 AM EST Noted [facility] [id number] Telephone encounter Note* Telephone Encounter - Lucia Krishnan - 04/17/2024 8:22 AM EST Name of Caller: Franky Kay Relationship to Patient: Patient Contact phone number: [phone] Best time of day caller can be reached: any Answering machine will come on after 6 beeps; please leave detailed message on answering machine re results if she is unable to answer. Date testing performed/completed: Mammogram 04/16/24 Where or by whom was testing performed: [facility] Beltran Patient advised that office/PCP has 24-48 business hours to return their call: Yes [facility] [id number] History of Present illness Narrative* Leslie Brandt MA - 04/16/2024 10:40 AM EST Images from the original note were not included. [address] [facility] [address] [facility] [phone] @patname@ Patient arrived for nurse visit today. Two patient identifiers used to confirm correct patient yes Supervising provider for clinic visit Dr. Gómez is taking Lisinopril 40mg for hypertension with excellent compliance and no side effects regular Shortness of breath no Medication compliance yes Medication Reconciliation yes BP Medication taken prior to visit yes at what time 8am B/P Reading taken manual Home Monitoring yes Patient advised if follow up is needed, outreach will occur in 48 hours First BP:146/84 Second BP:136/68 HR:64 Patient stated that she just went over for her mammogram and it was very stressfull for her * Norberto Gómez DO - 04/16/2024 10:40 AM EST Second blood pressure reading near goal so continue meds as is. Checkup with me in 3 to 4 months. Most importantly follow-up with supervisor tree trimming to try to obtain optimal diabetic control. documented in this [facility]02-25-2025 History of Present illness Narrative* Leslie Brandt MA - 04/16/2024 10:40 AM EST Images from the original note were not included. [address] [facility] [address] [facility] [phone] @patname@ Patient arrived for nurse visit today. Two patient identifiers used to confirm correct patient yes Supervising provider for clinic visit Dr. Gómez is taking Lisinopril 40mg for hypertension with excellent compliance and no side effects regular Shortness of breath no Medication compliance yes Medication Reconciliation yes BP Medication taken prior to visit yes at what time 8am B/P Reading taken manual Home Monitoring yes Patient advised if follow up is needed, outreach will occur in 48 hours First BP:146/84 Second BP:136/68 HR:64 Patient stated that she just went over for her mammogram and it was very stressfull for her * Norberto Gómez DO - 04/16/2024 10:40 AM EST Second blood pressure reading near goal so continue meds as is. Checkup with me in 3 to 4 months. Most importantly follow-up with supervisor tree trimming to try to obtain optimal diabetic control. * Leslie Brandt MA - 04/16/2024 10:40 AM EST Pt aware. documented in this [facility]01-29-2025 Telephone encounter Note* Telephone Encounter - Felecia Koroma - 03/20/2024 2:16 PM EST Orders pended for doctor signature [facility] [id number] Miscellaneous Notes* Telephone Encounter - Felecia Oliviaer - 03/20/2024 2:16 PM EST Orders pended for doctor signature * Telephone Encounter - Felecia Franci - 03/20/2024 2:15 PM EST ----- Message from Sayda Spring sent at 03/20/2024 2:04 PM EST ----- Pt consents to mammogram and was given number to call and schedule. ----- Message ----- From: Norberto Gómez DO Sent: 03/20/2024 1:33 PM EST To: Felecia Koroma; Sayda Talavera MA Call the patient and ask if she would consent to getting her screening mammogram which is overdue. I would highly recommend that since she has a history of breast cancer 20 years ago. Please post referral if she agrees documented in this encounterSOhio State University Wexner Medical [id number] Telephone encounter Note* Telephone Encounter - Felecia Koroma - 03/20/2024 2:15 PM EST ----- Message from Sayda Spring sent at 03/20/2024 2:04 PM EST ----- Pt consents to mammogram and was given number to call and schedule. ----- Message ----- From: Norberto Gómez DO Sent: 03/20/2024 1:33 PM EST To: Felecia Talavera MA Call the patient and ask if she would consent to getting her screening mammogram which is overdue. I would highly recommend that since she has a history of breast cancer 20 years ago. Please post referral if she agrees [facility] [id number] History of Present illness Narrative* Norberto Gómez DO - 03/20/2024 10:30 AM EST Images from the original note were not included. [facility] - [address] [facility] [id number] Visit type: Established Patient Reason for Visit: Follow-up (Med Check ) and Foot Swelling Assessment / Plan: Franky was seen today for follow-up and foot swelling. Diagnoses and all orders for this visit: Primary hypertension (Primary) Comments: Uncontrolled, add Lozol to lisinopril. 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 Rodriguez., Skin lotion and rare use of Kenalog cream. Orders: - Hemoglobin A1c; Future - Hemoglobin A1c Anxiety and depression Comments: Stable, patient defers increasing Prozac at this time Hypercholesterolemia Comments: Stable, continue Lipitor Peripheral edema Comments: Actually improving. Continue focal care, skin lotions, elevate legs and wear support hose Orders: - TSH; Future - TSH Breast cancer screening by mammogram Comments: Will reach out to patient on her consent for mammogram referral Other orders - indapamide (Lozol) 2.5 MG tablet; Take 1 tablet (2.5 mg) by mouth every morning. Subjective: Patient ID: Franky Villanueva is a 68 y.o. female. HPI uncontrolled type I diabetic on insulin presents for follow-up for overall health but also her scaliness on her legs and pedal edema. Things are actually improving somewhat. Less swelling and scaliness is improving with skin lotions and as needed triamcinolone recommended by dermatology. Has had extensive workup including leg arterial and venous Dopplers. Saw vascular clinic in [facility] few days ago. No surgical intervention recommended. Review of Systems A1c is not close to goal. Patient will be seeing endocrinology in a few months. No change in vision. She denies recent earache sore throat or cough. No chest pain or palpitations. Non-smoker. No cough PND orthopnea claudication. No heartburn or abdominal pain. Bowels are regular. No melena or blood. Colonoscopy up-to-date. Overdue for mammogram. History of right breast cancer lumpectomy 20 years ago. Scaliness on her distal legs is better. Not as much flakiness and no erythema. She has cool toes and feet but denies claudication. Has chronic varicosities. No Known Allergies Current Outpatient Medications on File Prior to Visit Medication Sig Dispense Refill atorvastatin (Lipitor) 10 MG tablet Take 1 tablet (10 mg) by mouth daily for 90 doses. 90 tablet 1 Blood Glucose Monitoring Suppl (FreeStyle Lite) device Inject 1 each under the skin 3 times daily. Use as instructed E11.9 1 each 0 cholecalciferol (Vitamin D-3) 50 MCG (2000 UT) capsule Take 2,000 Units by mouth in the morning. FLUoxetine (PROzac) 20 MG capsule Take 1 capsule (20 mg) by mouth daily. 90 capsule 1 FREESTYLE LITE test strip 1 each by Other route 3 times daily. Use as instructed E11.9 200 each 1 glucose blood (FREESTYLE LITE) test strip TEST BLOOD SUGARS 6 TIMES DAILY; E 10.29, IDDM, insulin glargine (Lantus SoloStar) 100 UNIT/ML pen Inject 11 Units under the skin. insulin lispro (HumaLOG) 100 UNIT/ML injection Inject subcutaneously 10 units three times daily at meals. lisinopril 40 MG tablet Take 1 tablet (40 mg) by mouth daily for 90 doses. 90 tablet 1 Multiple Vitamin (MULTIVITAMIN ADULT PO) Take by mouth. Sure Comfort Pen [place] 31G X 8 MM [facility] [place] triamcinolone (Kenalog) 0.1 % cream Apply topically 2 times daily. [DISCONTINUED] furosemide (Lasix) 40 MG tablet Increase to 1 in the morning and one half in the evening. 45 tablet 1 [DISCONTINUED] torsemide (Demadex) 20 MG tablet Take 1 tablet (20 mg) by mouth daily. 30 tablet 5 No current facility-administered medications on file prior to visit. 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) Peripheral edema Social History Tobacco Use Smoking status: Never Smokeless tobacco: Never Substance Use Topics Alcohol use: Yes Past Surgical History: Procedure Laterality Date BREAST LUMPECTOMY Right 2004 CA Breast COLONOSCOPY 09/2021 Friend- divert ds- due 2031 COLONOSCOPY 2006 ESOPHAGOGASTRODUODENOSCOPY 09/2021 Esophageal candidiasis Family History Problem Relation Name Age of Onset Other Mother in 90s Coronary artery disease Father acute DC, at age 94 No Known Problems Sister Parkinsonism Brother 75 Breast cancer Mother's Sister Objective: BP (!) 144/84 Pulse 66 Temp 36.6 C (97.9 F) (Temporal) Ht 5' 5 (1.651 m) Wt 144 lb 6.4 oz (65.5 kg) SpO2 98% BMI 24.03 kg/m Physical Exam Pleasant alert and cooperative. Well-hydrated. Blood pressure is too high. Normal oropharynx and eardrums. No neck masses JVD thyroid lesions or carotid bruits. Heart is regular without gallops murmurs or ectopy. Lungs are clear. No rales wheezes or egophony. Abdomen slightly obese without pain hepa tosplenomegaly or masses. No ascites. Femoral pulses are good. Less tense edema of the legs and feet. Cooler toes but palpable dorsalis and posterior tibial pulses. Various stages of dermopathy is evident but no signs of cellulitis. Reviewed recent vascular consultation, arterial and venous Dopplers, echocardiogram, CXR and lab documented in this [facility]01-29-2025 Instructions* Patient Instructions* Norberto Gómez DO - 03/20/2024 10:30 AM EST Wear support hose as discussed. Recheck blood pressure with staff in 4 weeks. Call in 4 to 5 weeks in the no better in mood and motivation we will increase Prozac at that time documented in this [facility]01-14-2025 Evaluation note* Diagnosis Onset Date Resolution Status Admit Date Discoloration of skin of low er leg acute March 05 9:49am Lower extremity edema chronic Grzegorz rodriguez 2024 9:49am Venous insufficiency chronic Emmett hartman 2024 9:49am High cholesterol chronic June 20, 2024 1:45pm Hypertension chronic June 20 1:45pm Lower extremity edema chronic June 20, 2024 1:45pm Type 1 diabetes mellitus wit h hyperglycemia chronic June 20, 2024 1: 45pm Venous insufficiency chronic June 20, 2024 1:45pm [facility] Work Phone: [phone]) [phone] Telephone encounter Note* Telephone Encounter - Lorene Blackwell RN - 01/29/2024 11:11 AM EST Prescription Refill Information The patient has been identified by name and date of : Yes Caregiver verified no other encounters exist for this prescription request: Yes Caregiver confirmed with patient/requestor that no other refills are due, in the near future, with this provider at this time: Yes The last office visit in the department: 06/16/23 [place] Does the patient have a future office visit with this provider/department: No Patient No Showed on 12/20/23 Please contact patient to schedule for first available. Requested Prescriptions Pending Prescriptions Disp Refills insulin lispro (HUMALOG KWIKPEN INSULIN) 100 unit/mL [Pharmacy Med Name: HUMALOG KWIKPEN U100 3ML 5'S 100U/ML] 30 mL 1 Sig: INJECT UNDER THE SKIN 1:10 THREE TIMES A DAY AT MEALS AND CORRECTION 1:50 OVER 150, UP TO 30 UNITS DAILY insulin glargine (LANTUS SOLOSTAR U-100 INSULIN) 100 unit/mL (3 mL) [Pharmacy Med Name: LANTUS SOLOSTAR PEN 3ML 5'S 100U/ML] 15 mL 1 Sig: INJECT 11 UNITS UNDER THE SKIN DAILY AT BEDTIME insulin needles, DISPOSABLE, (SURE COMFORT PEN NEEDLE) 31 gauge x 5/16 [Pharmacy Med Name: SURE COMFORT PEN RAFAEL 8MM 100S 31G5/16] 400 Each 1 Sig: USE 4 PEN NEEDLES DAILY, FOR INSULIN PEN USE Lorene Blackwell RN January 29, 2024 11:13 AM [facility]12-09-2024 Miscellaneous Notes* Telephone Encounter - Lorene Blackwell RN - 01/29/2024 11:11 AM EST Prescription Refill Information The patient has been identified by name and date of : Yes Caregiver verified no other encounters exist for this prescription request: Yes Caregiver confirmed with patient/requestor that no other refills are due, in the near future, with this provider at this time: Yes The last office visit in the department: 06/16/23 Anibal Does the patient have a future office visit with this provider/department: No Patient No Showed on 12/20/23 Please contact patient to schedule for first available. Requested Prescriptions Pending Prescriptions Disp Refills insulin lispro (HUMALOG KWIKPEN INSULIN) 100 unit/mL [Pharmacy Med Name: HUMALOG KWIKPEN U100 3ML 5'S 100U/ML] 30 mL 1 Sig: INJECT UNDER THE SKIN 1:10 THREE TIMES A DAY AT MEALS AND CORRECTION 1:50 OVER 150, UP TO 30 UNITS DAILY insulin glargine (LANTUS SOLOSTAR U-100 INSULIN) 100 unit/mL (3 mL) [Pharmacy Med Name: LANTUS SOLOSTAR PEN 3ML 5'S 100U/ML] 15 mL 1 Sig: INJECT 11 UNITS UNDER THE SKIN DAILY AT BEDTIME insulin needles, DISPOSABLE, (SURE COMFORT PEN NEEDLE) 31 gauge x 5/16 [Pharmacy Med Name: SURE COMFORT PEN RAFAEL 8MM 100S 31G5/16] 400 Each 1 Sig: USE 4 PEN NEEDLES DAILY, FOR INSULIN PEN USE Lorene Blackwell RN January 29, 2024 11:13 AM documented in [facility] encounterProm[facility]11-25-2024 Miscellaneous Notes* Telephone Encounter - Natacha Westfall MA - 01/15/2024 10:38 AM EST Patient requesting refills as follows: Requested Prescriptions Pending Prescriptions Disp Refills lisinopril (ZESTRIL) 40 mg tablet 90 tablet 3 Sig: Take 1 tablet by mouth once daily. Please review and advise. Natacha Westfall MA documented in this encounterPromedica [facility] Hospital11-25-2024 Telephone encounter Note * Telephone Encounter - Natacha Westfall MA - 01/15/2024 10:38 AM EST Patient requesting refills as follows: Requested Prescriptions Pending Prescriptions Disp Refills lisinopril (ZESTRIL) 40 mg tablet 90 tablet 3 Sig: Take 1 tablet by mouth once daily. Please review and advise. Natacha Westfall MA [facility]09-26-2024 Note* Addendum Note - Norberto Gómez DO - 11/16/2023 5:24 PM EDTAddended by: NORBERTO GÓMEZ on: 11/16/2023 05:24 PM Modules accepted: Orders [facility] [id number] Note* Addendum Note - Norberto Gómez DO - 11/16/2023 5:24 PM EDTAddended by: NORBERTO GÓMEZ on: 11/16/2023 05:24 PM Modules accepted: Orders [facility] [id number] Note* Addendum Note - Norberto Gómez DO - 11/16/2023 5:24 PM EDTAddended by: NORBERTO GÓMEZ on: 11/16/2023 05:24 PM Modules accepted: Orders [place] [id number] Note* Addendum Note - Norberto Gómez DO - 11/16/2023 5:24 PM EDTAddended by: NORBERTO GÓMEZ on: 11/16/2023 05:24 PM Modules accepted: Orders [place] [id number] Note* Addendum Note - Norberto Gómez DO - 11/16/2023 5:24 PM EDTAddended by: NORBERTO GÓMEZ on: 11/16/2023 05:24 PM Modules accepted: Orders [id number] Note* Addendum Note - Norberto Gómez DO - 11/16/2023 5:24 PM EDTAddended by: NORBERTO GÓMEZ on: 11/16/2023 05:24 PM Modules accepted: Orders [facility] [id number] Note* Addendum Note - Norberto Gómez DO - 11/16/2023 5:24 PM EDTAddended by: NORBERTO GÓMEZ on: 11/16/2023 05:24 PM Modules accepted: Orders [facility] [id number] NoteAddended by: NORBERTO GÓMEZ on: 11/16/2023 05:24 PM Modules accepted: [facility]09-26-2024 Miscellaneous Notes* Addendum Note - Norberto Gómez DO - 11/16/2023 5:24 PM EDTAddended by: NORBERTO GÓMEZ on: 11/16/2023 05:24 PM Modules accepted: Orders * Addendum Note - Arianna Carty - 11/16/2023 1:22 PM EDTAddended by: ARIANNA CARTY on: 11/16/2023 01:22 PM Modules accepted: Orders * Telephone Encounter - Arianna Carty - 11/16/2023 1:21 PM EDT Referral to Dr Chen pended for doctor's signature * Telephone Encounter - Arianna Carty - 11/16/2023 11:47 AM EDT Forward to Dr Gómez for referral * Telephone Encounter - Sayda Talavera MA - 11/16/2023 11:08 AM EDT Spoke with patient she does not want OT she wants some who specializes in lymphedema * Telephone Encounter - Arianna Carty - 11/16/2023 10:53 AM EDT Please verify with patient if she is asking for new orders for OT or a referral to a specialist forlymphedema. She has mentioned both in the previous messages. * Telephone Encounter - Nova Wheeler Sole - 11/15/2023 10:34 AM EDT Name of caller: franky Contact phone number: [phone] Relationship to Patient: patient Provider: dalia Practice: [facility] Chief Complaint/Reason for Call: Pt states is needing a referral to a doctor in [place] [facility] of l[facility]ema. Please advise. Best time of day caller can be reached: AM Patient advised that office/PCP has 24-48 business hours to return their call: Yes * Telephone Encounter - Maryam Galicia - 11/15/2023 9:08 AM EDT Name of caller: Franky Contact phone number: [phone] Relationship to Patient: patient Provider: Dr. Gómez Practice: Chief Complaint/Reason for Call: PT would like to talk to the office basil to discuss her referral the was updated in her records. Peripheral edema Best time of day caller can be reached: any Patient advised that office/PCP has 24-48 business hours to return their call: No documented in this [facility]09-26-2024 Note* Addendum Note - Arianna Carty - 11/16/2023 1:22 PM EDTAddended by: ARIANNA CARTY on: 11/16/2023 01:22 PM Modules accepted: Orders [facility] [id number] Note* Addendum Note - Arianna Carty - 11/16/2023 1:22 PM EDTAddended by: ARIANNA CARTY on: 11/16/2023 01:22 PM Modules accepted: Orders [place] [id number] Note* Addendum Note - Arianna Carty - 11/16/2023 1:22 PM EDTAddended by: ARIANNA CARTY on: 11/16/2023 01:22 PM Modules accepted: Orders [place] [id number] Note* Addendum Note - Arianna Carty - 11/16/2023 1:22 PM EDTAddended by: ARIANNA CARTY on: 11/16/2023 01:22 PM Modules accepted: Orders [facility] [id number] Note* Addendum Note - Arianna Carty - 11/16/2023 1:22 PM EDTAddended by: ARIANNA CARTY on: 11/16/2023 01:22 PM Modules accepted: Orders [place] [id number] Note* Addendum Note - Arianna Carty - 11/16/2023 1:22 PM EDTAddended by: ARIANNA CARTY on: 11/16/2023 01:22 PM Modules accepted: Orders [place] [id number] Note* Addendum Note - Arianna Carty - 11/16/2023 1:22 PM EDTAddended by: ARIANNA CARTY on: 11/16/2023 01:22 PM Modules accepted: Orders [facility] [id number] NoteAddended by: ARIANNA CARTY on: 11/16/2023 01:22 PM Modules accepted: [facility]09-26-[address] Chen pended for doctor's signatureSHarbor Beach Community Hospital09-26-2024 Telephone encounter Note* Telephone Encounter - Arianna Carty - 11/16/2023 1:21 PM EDT Referral to Dr Chen pended for doctor's signature [place] [id number] Gómez for referralSHarbor Beach Community Hospital09-26-2024 Telephone encounter Note* Telephone Encounter - Arianna Carty - 11/16/2023 11:47 [address] EDT Forward to Dr Gómez for referral [place] [id number] Telephone encounter Note* Telephone Encounter - Sayda Talavera MA - 11/16/2023 11:08 AM EDT Spoke with patient she does not want OT she wants some who specializes in lymphedema [facility] [id number] NotePlease verify with patient if she is asking for new orders for OT or a referral to a specialist for lymphedema. She has mentioned both in the previous messages. [facility]09-26-2024 Telephone encounter Note* Telephone Encounter - Arianna Carty - 11/16/2023 10:53 AM EDT Please verify with patient if she is asking for new orders for OT or a referral to a specialist forlymphedema. She has mentioned both in the previous messages. [place] [id number] Telephone encounter Note* Telephone Encounter - Nova Whipple - 11/15/2023 10:34 AM EDT Name of caller: franky Contact phone number: [phone] Relationship to Patient: patient Provider: dalia Practice: [facility] Chief Complaint/Reason for Call: Pt states is needing a referral to a doctor in [place] that is M.Dwith a specialty of lymphedema. Please advise. Best time of day caller can be reached: AM Patient advised that office/PCP has 24-48 business hours to return their call: Yes [facility] [id number] Miscellaneous Notes* Telephone Encounter - Nova Alemanchiki - 11/15/2023 10:34 AM EDT Name of caller: franky Contact phone number: [phone] Relationship to Patient: patient Provider: dalia Practice: [facility] Chief Complaint/Reason for Call: Pt states is needing a referral to a doctor in [place] that is M.Dwith a specialty of lymphedema. Please advise. Best time of day caller can be reached: AM Patient advised that office/PCP has 24-48 business hours to return their call: Yes * Telephone Encounter - Maryam Galicia - 11/15/2023 9:08 AM EDT Name of caller: Franky Contact phone number: [phone] Relationship to Patient: patient Provider: Dr. Gómez Practice: Chief Complaint/Reason for Call: PT would like to talk to the office basil to discuss her referral the was updated in her records. Peripheral edema Best time of day caller can be reached: any Patient advised that office/PCP has 24-48 business hours to return their call: No documented in this [facility]09-25-2024 Telephone encounter Note* Telephone Encounter - Maryam Galicia - 11/15/2023 9:08 AM EDT Name of caller: Franky Contact phone number: [phone] Relationship to Patient: patient Provider: Dr. Gómez Practice: Chief Complaint/Reason for Call: PT would like to talk to the office basil to discuss her referral the was updated in her records. Peripheral edema Best time of day caller can be reached: any Patient advised that office/PCP has 24-48 business hours to return their call: No [facility] [id number] Note* Addendum Note - Norberto Gómez DO - 11/13/2023 12:31 PM EDTAddended by: NORBERTO GÓMEZ on: 11/13/2023 12:31 PM Modules accepted: Orders [facility] [id number] Note* Addendum Note - Norberto Gómez DO - 11/13/2023 12:31 PM EDTAddended by: NORBERTO GÓMEZ on: 11/13/2023 12:31 PM Modules accepted: Orders [place] [id number] Note* Addendum Note - Norberto Gómez DO - 11/13/2023 12:31 PM EDTAddended by: NORBERTO GÓMEZ on: 11/13/2023 12:31 PM Modules accepted: Orders [facility] [id number] NoteAddended by: NORBERTO GÓMEZ on: 11/13/2023 12:31 PM Modules accepted: [facility]09-23-2024 Miscellaneous Notes* Addendum Note - Norberto Gómez DO - 11/13/2023 12:31 PM EDTAddended by: NORBERTO GÓMEZ on: 11/13/2023 12:31 PM Modules accepted: Orders * Addendum Note - Arianna Carty - 11/13/2023 10:17 AM EDTAddended by: ARIANNA CARTY on: 11/13/2023 10:17 AM Modules accepted: Orders * Telephone Encounter - Arianna Carty - 11/13/2023 10:17 AM EDT Updated referral pended for doctor's signature * Telephone Encounter - Laura Holder - 11/10/2023 11:30 AM EDT Name of caller: Franky Contact phone number: [phone] Relationship to Patient: patient Provider: Practice: [facility] Chief Complaint/Reason for Call: Patient calling and states her referral to OT, needs to say Lymphedema specialist specifically. Please send new referral. Best time of day caller can be reached: any Patient advised that office/PCP has 24-48 business hours to return their call: no documented in this encounterSOhio State University Wexner Medical [id number] Note* Addendum Note - Arianna Carty - 11/13/2023 10:17 AM EDTAddended by: ARIANNA CARTY on: 11/13/2023 10:17 AM Modules accepted: Orders [facility] [id number] Note* Addendum Note - Arianna Carty - 11/13/2023 10:17 AM EDTAddended by: ARIANNA CARTY on: 11/13/2023 10:17 AM Modules accepted: Orders [facility] [id number] Note* Addendum Note - Arianna Carty - 11/13/2023 10:17 AM EDTAddended by: ARIANNA CARTY on: 11/13/2023 10:17 AM Modules accepted: Orders [facility] [id number] NoteAddended by: ARIANNA CARTY on: 11/13/2023 10:17 AM Modules accepted: [facility]09-23-2024 NoteUpdated referral pended for doctor's signatureSHarbor Beach Community Hospital09-23-2024 Telephone encounter Note* Telephone Encounter - Arianna Carty - 11/13/2023 10:17 AM EDT Updated referral pended for doctor's signature [facility] [id number] Telephone encounter Note* Telephone Encounter - Laura Holder - 11/10/2023 11:30 AM EDT Name of caller: Franky Contact phone number: [phone] Relationship to Patient: patient Provider: Practice: [facility] Chief Complaint/Reason for Call: Patient calling and states her referral to OT, needs to say Lymphedema specialist specifically. Please send new referral. Best time of day caller can be reached: any Patient advised that office/PCP has 24-48 business hours to return their call: no [facility] HospitalWfbqav26-56-7415 Miscellaneous Notes* Telephone Encounter - Laura Holder - 11/10/2023 11:30 AM EDT Name of caller: Franky Contact phone number: [phone] Relationship to Patient: patient Provider: Practice: [facility] Chief Complaint/Reason for Call: Patient calling and states her referral to OT, needs to say Lymphedema specialist specifically. Please send new referral. Best time of day caller can be reached: any Patient advised that office/PCP has 24-48 business hours to return their call: no documented in this encounterSOhio State University Wexner Medical [id number] Telephone encounter Note* Telephone Encounter - Lorene Montana MA - 11/08/2023 6:08 AM EDT Recent Visits Date Type Provider Dept 09/28/23 Office Visit Norberto Gómez, DO [facility] 07/20/23 Office Visit Allen Rapp PA-C [facility] 07/12/23 Office Visit Norberto Mac Dalia, DO [facility] 05/30/23 Office Visit Norberto Mac Dalia DO [facility] Showing recent visits within past 365 days and meeting all other requirements Future Appointments Date Type Provider Dept 01/11/24 Appointment Norberto Estefania DO Dalia [facility] Showing future appointments within next 90 days and meeting all other requirements Requested Prescriptions Pending Prescriptions Disp Refills FLUoxetine (PROzac) 20 MG capsule [Pharmacy Med Name: FLUOXETINE HCL CAPS 20MG] 90 capsule 1 Sig: Take 1 capsule (20 mg) by mouth daily. Provider: Norberto Gómez DO Verified pharmacy: yes Verified day(s) supplied: yes Verified refill(s) needed (previous prescription showing no refills in chart): Yes Have you received any controlled medications from any other provider? N/A Overdue for visit: No If yes - patient scheduled? Yes Most recent labs completed in chart? Yes None [facility] [id number] Miscellaneous Notes* Telephone Encounter - Lorene Montana MA - 11/08/2023 6:08 AM EDT Recent Visits Date Type Provider Dept 09/28/23 Office Visit Norberto Gómez, DO [facility] 07/20/23 Office Visit Allen Rapp PA-C [facility] 07/12/23 Office Visit Norberto Estefania Dalia DO [facility] 05/30/23 Office Visit Norberto Gómez DO [facility] Showing recent visits within past 365 days and meeting all other requirements Future Appointments Date Type Provider Dept 01/11/24 Appointment Norberto Gómez DO [facility] Showing future appointments within next 90 days and meeting all other requirements Requested Prescriptions Pending Prescriptions Disp Refills FLUoxetine (PROzac) 20 MG capsule [Pharmacy Med Name: FLUOXETINE HCL CAPS 20MG] 90 capsule 1 Sig: Take 1 capsule (20 mg) by mouth daily. Provider: Norberto Gómez DO Verified pharmacy: yes Verified day(s) supplied: yes Verified refill(s) needed (previous prescription showing no refills in chart): Yes Have you received any controlled medications from any other provider? N/A Overdue for visit: No If yes - patient scheduled? Yes Most recent labs completed in chart? Yes None documented in this [facility]09-17-2024 NoteReferral to [facility] OT pended for dx and doctor's signatureSHarbor Beach [facility]09-[facility]24 Telephone encounter Note* Telephone Encounter - Arianna Carty - 11/07/2023 9:07 AM EDT Referral to [place] OT pended for dx and doctor's signature [facility] [id number] Miscellaneous Notes* Telephone Encounter - Arianna Carty - 11/07/2023 9:07 AM EDT Referral to [facility] OT pended for dx and doctor's signature * Telephone Encounter - Lucia Krishnan - 11/07/2023 9:00 AM EDT Patient's further questions if applicable: Patient called back 11/07/23 to follow up as to whether referral is complete. Patient was advised that it takes 24-48 hours to coordinate the referral and the place of referral will reach out to her once they receive. Patient wants to be sure REFERRAL IS FOR LYMPHEDEMA CLINIC IN [facility]. Please call patient and advise where referral is for so she can follow up. * Telephone Encounter - Porsha Cuadra - 11/05/2023 9:37 AM EDT Name of caller: Franky Contact phone number: [phone] Relationship to Patient: patient Provider: Dr Gómez Practice: [facility] Chief Complaint/Reason for Call: Patient Franky Villanueva called in asking if Dr Gómez can write a referral for her to go to a lymphedema clinic and if possible a clinic in or close to the [facility].Please advise. Best time of day caller can be reached: any Patient advised that office/PCP has 24-48 business hours to return their call: N/A documented in this encounterSOhio State University Wexner Medical [id number] NotePatient's further questions if applicable: Patient called back 11/07/23 to follow up as to whether referral is complete. Patient was advised that it takes 24-48 hours to coordinate the referral and the place of referral will reach out to her once they receive. Patient wants to be sure REFERRAL IS FOR LYMPHEDEMA CLINIC IN [facility]. Please call patient and advise where referral is for so she can follow up.[facility]09-17-2024 Telephone encounter Note* Telephone Encounter - Lucia Krishnan - 11/07/2023 9:00 AM EDT Patient's further questions if applicable: Patient called back 11/07/23 to follow up as to whether referral is complete. Patient was advised that it takes 24-48 hours to coordinate the referral and the place of referral will reach out to her once they receive. Patient wants to be sure REFERRAL IS FOR LYMPHEDEMA CLINIC IN [facility]. Please call patient and advise where referral is for so she can follow up. [facility] [id number] Telephone encounter Note* Telephone Encounter - Porsha Cuadra - 11/05/2023 9:37 AM EDT Name of caller: Franky Contact phone number: [phone] Relationship to Patient: patient Provider: Dr Gómez Practice: [facility] Chief Complaint/Reason for Call: Patient Franky Villanueva called in asking if Dr Gómez can write a referral for her to go to a lymphedema clinic and if possible a clinic in or close to the [facility].Please advise. Best time of day caller can be reached: any Patient advised that office/PCP has 24-48 business hours to return their call: N/A [facility] [id number] Telephone encounter Note* Telephone Encounter - Aby Lockhart MA - 11/03/2023 8:20 AM EDT Prescription Refill Information The patient has been identified by name and date of : Yes Caregiver verified no other encounters exist for this prescription request: Yes Caregiver confirmed with patient/requestor that no other refills are due, in the near future, with this provider at this time: Yes The last office visit in the department: 06/16/2023 Does the patient have a future office visit with this provider/department: Yes. 12/20/2023 Requested Prescriptions Pending Prescriptions Disp Refills atorvastatin (LIPITOR) 10 mg tablet [Pharmacy Med Name: ATORVASTATIN TABS 10MG] 90 tablet 3 Sig: take 1 tablet daily Aby Lockhart MA November 03, 2023 8:20 AM [facility]09-13-2024 Miscellaneous Notes* Telephone Encounter - Aby Lockhart MA - 11/03/2023 8:20 AM EDT Prescription Refill Information The patient has been identified by name and date of : Yes Caregiver verified no other encounters exist for this prescription request: Yes Caregiver confirmed with patient/requestor that no other refills are due, in the near future, with this provider at this time: Yes The last office visit in the department: 06/16/2023 Does the patient have a future office visit with this provider/department: Yes. 12/20/2023 Requested Prescriptions Pending Prescriptions Disp Refills atorvastatin (LIPITOR) 10 mg tablet [Pharmacy Med Name: ATORVASTATIN TABS 10MG] 90 tablet 3 Sig: take 1 tablet daily Aby Lockhart MA November 03, 2023 8:20 AM documented in this encounterPromedica [facility] Hospital08-22-2024 Telephone encounter Note * Telephone Encounter - Marvin Simmons - 10/12/2023 7:05 AM EDT . [id number] Miscellaneous Notes* Telephone Encounter - Marvin Simmons - 10/12/2023 7:05 AM EDT . documented in this encounterSOhio State University Wexner Medical [id number] Telephone encounter Note* Telephone Encounter - Felecia Koroma - 10/10/2023 11:23 AM EDT Orders pended for doctor signature [id number] Miscellaneous Notes* Telephone Encounter - Felecia Koroma - 10/10/2023 11:23 AM EDT Orders pended for doctor signature * Telephone Encounter - Sayda Talavera MA - 10/10/2023 11:10 AM EDT Placed call to patient. Two patient identifers confirmed. Was able to speak to patient. All concerns in message have been addressed. No questions at this time. Call ended Pt would like referral * Telephone Encounter - Pam Rossi RN - 10/10/2023 9:53 AM EDT S: Patient spoke with [facility] nurse regarding dark vaginal spotting B: Onset of symptoms/concern 6 months A: Has a thin dark perera vaginal discharge with mild odor. 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 Denies fever, abdominal pain, rash/blisters to genitalia. Patient asking for message to be sent to office requesting prescription to be sent to pharmacy. Also requested BP check appointment on 10/25 be cancelled. R: TE to office for review and follow up. BP check appointment on 10/25 cancelled per patient request. Patient understands care advice. No further needs at this time. Patient instructed to call back with new or worsening symptoms. Reason for Disposition Abnormal color vaginal discharge (i.e., yellow, green, perera) Protocols used: Vaginal [id number] documented in this [place] [id number] Telephone encounter Note* Telephone Encounter - Felecia Koroma - 10/10/2023 11:22 AM EDT Orders pended for doctor signature [id number] Miscellaneous Notes* Telephone Encounter - Felecia Koroma - 10/10/2023 11:22 AM EDT Orders pended for doctor signature documented in this [address]20-2024 Telephone encounter Note* Telephone Encounter - Sayda Talavera MA - 10/10/2023 11:10 AM EDT Placed call to patient. Two patient identifers confirmed. Was able to speak to patient. All concerns in message have been addressed. No questions at this time. Call ended Pt would like referral [id number] Telephone encounter Note* Telephone Encounter - Pam Rossi RN - 10/10/2023 9:53 AM EDT S: Patient spoke with [facility] nurse regarding dark vaginal spotting B: Onset of symptoms/concern 6 months A: Has a thin dark perera vaginal discharge with mild odor. 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 Denies fever, abdominal pain, rash/blisters to genitalia. Patient asking for message to be sent to office requesting prescription to be sent to pharmacy. Also requested BP check appointment on 10/25 be cancelled. R: TE to office for review and follow up. BP check appointment on 10/25 cancelled per patient request. Patient understands care advice. No further needs at this time. Patient instructed to call back with new or worsening symptoms. Reason for Disposition Abnormal color vaginal discharge (i.e., yellow, green, perera) Protocols used: Vaginal Eatemnnth-FFWFY-UH [place] [id number] Telephone encounter Note* Telephone Encounter - Feleciamariam Koroma - 09/29/2023 7:22 AM EDT Orders pended for doctor signature [place] [id number] Miscellaneous Notes* Telephone Encounter - Felecia Koroma - 09/29/2023 7:22 AM EDT Orders pended for doctor signature documented in this encounterSJuan [place] [id number] History of Present illness Narrative* Norberto Gómez DO - 09/28/2023 3:00 PM EDT Images from the original note were not included. [facility] [address] [place] [address] [facility] [id number] Visit type: Established Patient Reason for Visit: Follow-up (Med check) Assessment / Plan: Franky was seen today for follow-up. Diagnoses and all orders for this visit: Lymphedema (Primary) Comments: Long discussion with need to exercise more. Elevate legs and wear leg wraps per podiatry. Call For lymphedema clinic referral no better in 1 month Orders: - Basic metabolic panel; Future - Basic metabolic panel Primary hypertension Comments: Uncontrolled, continue lisinopril and add Demadex. 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 Subjective: Patient ID: Franky Villanueva is a 68 y.o. female. HPI uncontrolled type I diabetic with history of hypertension hyperlipidemia presents for follow-upon leg edema. These are actually improved somewhat. However things are persistent with yellowness of the legs. Now seeing endocrinology and things are somewhat improving with her insulin. Of note elevated A1c for quite a long time. Recent workup for edema including venous Dopplers, echocardiogram, and chemistries have been unremarkable. She presents with her friend today who states she is not motivated and not exercising enough. Patient has elevated depression since her passed. Review of Systems denies recent earache sore throat or cough. No chest pain or palpitations. She denies PND scaliness of her legs are improving. No redness or unhealing ulcers. No abd pain vomiting or diarrhea. She does live alone and friends are checking in on her. Has been on Prozac for a while. Does not smoke or drink. Generally somewhat upbeat. She does feel weak in her legs and had a fall in May. DM has not been controlled, but she denies pain or burning of her hands or feet. No history of neuropathy. No Known Allergies Current Outpatient Medications on File Prior to Visit Medication Sig Dispense Refill atorvastatin (Lipitor) 10 MG tablet Take 1 tablet (10 mg) by mouth daily for 90 doses. 90 tablet 1 Blood Glucose Monitoring Suppl (FreeStyle Lite) device Inject 1 each under the skin 3 times daily. Use as instructed E11.9 1 each 0 cholecalciferol (Vitamin D-3) 50 MCG (1999 UT) capsule Take 2,000 Units by mouth in the morning. FLUoxetine (PROzac) 20 MG capsule Take 1 capsule (20 mg) by mouth daily. 90 capsule 1 FREESTYLE LITE test strip 1 each by Other route 3 times daily. Use as instructed E11.9 200 each 1 furosemide (Lasix) 40 MG tablet Increase to 1 in the morning and one half in the evening. 45 tablet1 glucose blood (FREESTYLE LITE) test strip TEST BLOOD SUGARS 6 TIMES DAILY; E 10.29, IDDM, insulin glargine (Lantus SoloStar) 100 UNIT/ML pen Inject 11 Units under the skin. insulin lispro (HumaLOG) 100 UNIT/ML injection Inject subcutaneously 10 units three times daily at meals. lisinopril 40 MG tablet Take 1 tablet (40 mg) by mouth daily for 90 doses. 90 tablet 1 Multiple Vitamin (MULTIVITAMIN ADULT PO) Take by mouth. Sure Comfort Pen [place] 31G X 8 MM misc triamcinolone (Kenalog) 0.1 % cream Apply topically 2 times daily. No current facility-administered medications on file prior to visit. 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 Taylor- divert ds- due 2031 COLONOSCOPY 2006 ESOPHAGOGASTRODUODENOSCOPY 09/2021 Esophageal candidiasis Family History Problem Relation Name Age of Onset Other Mother in 90s Coronary artery disease Father acute DC, at age 94 No Known Problems Sister Parkinsonism Brother 75 Breast cancer Mother's Sister Objective: BP 138/78 Pulse 68 Temp 36.4 C (97.5 F) (Temporal) Ht 5' 5 (1.651 m) Wt 133 lb (60.3 kg) SpO2 98% BMI 22.13 kg/m Physical Exam pleasant alert and oriented. Well-hydrated. Nonicteric. Blood pressure is too high. No thyroid or neck masses. No adenopathy or carotid bruits. Heart is regular without gallops murmurs or ectopy. Echocardiogram normal. Lungs are clear without rales wheezes. Abdomen soft nontender without pain hepatosplenomegaly masses or ascites. Some scaliness of the anterior aspect of both legs. No induration or erythema. Less calf and foot edema. Pulses are diminished but adequate. There is no motor or sensory loss in the feet or toes. Chest x-ray was clear. Normal left ventricular ejection fraction no valvular heart disease on echocardiogram, ultrasound abdomen revealed no masses. Renal and liver function normal. documented in this encounterSOhio State University Wexner Medical [id number] Telephone encounter Note* Telephone Encounter - Mary Stallings RN - 08/30/2023 6:52 AM EDT S: Patient spoke with [facility] nurse regarding upcoming labs. B: 10/12/23. A: Having some vaginal drainage on panty liner, asking to come in earlier to see Dr. Gómez. Informed labs ordered was a CMP and she will get down before her appointment. R: Appointment rescheduled to a sooner appointment. Patient understands care advice. No further needs at this time. Patient instructed to call back with new or worsening symptoms. Reason for Disposition All other vaginal symptoms (Exception: Feels like prior yeast infection, minor abrasion, mild rash < 24 hour duration, mild itching.) Protocols used: Vaginal Jzwxfcpy-YAQZW-MZ [facility] [id number] Miscellaneous Notes* Telephone Encounter - Mary Stallings RN - 08/30/2023 6:52 AM EDT S: Patient spoke with [facility] nurse regarding upcoming labs. B: 10/12/23. A: Having some vaginal drainage on panty liner, asking to come in earlier to see Dr. Gómez. Informed labs ordered was a CMP and she will get down before her appointment. R: Appointment rescheduled to a sooner appointment. Patient understands care advice. No further needs at this time. Patient instructed to call back with new or worsening symptoms. Reason for Disposition All other vaginal symptoms (Exception: Feels like prior yeast infection, minor abrasion, mild rash < 24 hour duration, mild itching.) Protocols used: Vaginal Udbscnhv-[id number] documented in this [facility]06-25-2024 Telephone encounter Note* Telephone Encounter - Sayda Talavera MA - 08/15/2023 11:48 AM EDT Pt sent message in my chart [facility] [id number] Miscellaneous Notes* Telephone Encounter - Sayda Talavera MA - 08/15/2023 11:48 AM EDT Pt sent message in my chart * Telephone Encounter - Blank Martines - 08/15/2023 9:49 AM EDT Name of caller: Franky Contact phone number: [phone] Relationship to Patient: patient Provider: Dr Gómez Practice: [facility] Chief Complaint/Reason for Call: Franky called and wanted to make doctor aware that the furosemide 40 mg that doctor put patient on is not helping at all. Offered Franky nurse triage but she declined at this time stating she just wanted doctor made aware and would like his recommendation. Thanks Best time of day caller can be reached: any Patient advised that office/PCP has 24-48 business hours to return their call: Yes documented in this [facility]06-25-2024 Telephone encounter Note* Telephone Encounter - Blank Martines - 08/15/2023 9:49 AM EDT Name of caller: Franky Contact phone number: [phone] Relationship to Patient: patient Provider: Dr Gómez Practice: [facility] Chief Complaint/Reason for Call: Franky called and wanted to make doctor aware that the furosemide 40 mg that doctor put patient on is not helping at all. Offered Franky nurse triage but she declined at this time stating she just wanted doctor made aware and would like his recommendation. Thanks Best time of day caller can be reached: any Patient advised that office/PCP has 24-48 business hours to return their call: Yes [facility] [id number] Telephone encounter Note* Telephone Encounter - Ani Nuñez Tati - 07/21/2023 2:20 PM EDT Name of caller: Franky Contact phone number: [phone] Relationship to Patient: Patient Provider: Dr. Gómez Practice: [facility] Chief Complaint/Reason for Call: Pt states that she usually receives paperwork after her appointments with information on her next appointment and the notes from the appointment she just had that shedid not receive at her last appointment on 07/20/23 Pt requesting paperwork be printed and mailed to her residence. Please advise Best time of day caller can be reached: Any Patient advised that office/PCP has 24-48 business hours to return their call: No [facility] [id number] Miscellaneous Notes* Telephone Encounter - Ani Joaquin Duffy - 07/21/2023 2:20 PM EDT Name of caller: Franky Contact phone number: [phone] Relationship to Patient: Patient Provider: Dr. Gómez Practice: [facility] Chief Complaint/Reason for Call: Pt states that she usually receives paperwork after her appointments with information on her next appointment and the notes from the appointment she just had that shedid not receive at her last appointment on 07/20/23 Pt requesting paperwork be printed and mailed to her residence. Please advise Best time of day caller can be reached: Any Patient advised that office/PCP has 24-48 business hours to return their call: No documented in this encounterSOhio State University Wexner Medical [id number] Evaluation + Plan note* Assessment & Plan Note - Allen Rapp PA-C - 07/20/2023 1:38 PM EDTAssociated Problem(s): Peripheral edema - Chronic and unstable and persistent peripheral edema of unclear etiology. Increasing Lasix to 40 mg daily. Previous Doppler study was negative will order echocardiogram to evaluate for cardiac dysfunction - Diabetes is poorly controlled no signs of liver disease or dysfunction recent LFTs were normal could be a sequelae of chronic elevated blood sugar versus daily alcohol use versus cardiac etiology. [facility] [id number] Miscellaneous Notes* Assessment & Plan Note - Allen Rapp PA-C - 07/20/2023 1:38 PM EDTAssociated Problem(s): Peripheral edema - Chronic and unstable and persistent peripheral edema of unclear etiology. Increasing Lasix to 40 mg daily. Previous Doppler study was negative will order echocardiogram to evaluate for cardiac dysfunction - Diabetes is poorly controlled no signs of liver disease or dysfunction recent LFTs were normal could be a sequelae of chronic elevated blood sugar versus daily alcohol use versus cardiac etiology. * Assessment & Plan Note - Allen Rapp PA-C - 07/20/2023 1:04 PM EDTAssociated Problem(s): Primary hypertension Stable well-controlled continue on lisinopril 40 mg daily and increasing Lasix 40 mg daily for ongoing peripheral edema documented in this [facility]05-30-2024 Evaluation + Plan note* Assessment & Plan Note - Allen Rapp PA-C - 07/20/2023 1:04 PM EDTAssociated Problem(s): Primary hypertension Stable well-controlled continue on lisinopril 40 mg daily and increasing Lasix 40 mg daily for ongoing peripheral edema [facility] [id number] History of Present illness Narrative* Allen Rapp PA-C - 07/20/2023 11:20 AM EDT Images from the original note were not included. [facility] [address] [facility] [address] Dept: [phone] Dept Chief Complaint: Franky Villanueva is an 68 y.o. female here for an annual wellness visit. Assessment/Plan : Problem List Items Addressed This Visit Primary hypertension Stable well-controlled continue on lisinopril 40 mg daily and increasing Lasix 40 mg daily for ongoing peripheral edema Peripheral edema - Chronic and unstable and persistent peripheral edema of unclear etiology. Increasing Lasix to 40 mg daily. Previous Doppler study was negative will order echocardiogram to evaluate for cardiac dysfunction - Diabetes is poorly controlled no signs of liver disease or dysfunction recent LFTs were normal could be a sequelae of chronic elevated blood sugar versus daily alcohol use versus cardiac etiology. Relevant Medications furosemide (Lasix) 40 MG tablet Other Relevant Orders Transthoracic echocardiogram (TTE) complete with contrast, bubble, strain, and 3D PRN Basic metabolic panel Other Visit Diagnoses Routine general medical examination at health care facility - Primary Alcohol use Relevant Orders Basic metabolic panel US abdomen complete VITAMIN B1 Folate LLQ abdominal pain Left lower quadrant abdominal fullness and pressure tenderness over the suprapubic into the left lower quadrant of unclear etiology. Relevant Orders Basic metabolic panel US abdomen complete I have reviewed and reconciled the medication list with the patient today. Current Outpatient Medications Medication Sig Dispense Refill atorvastatin (Lipitor) 10 MG tablet Take 1 tablet (10 mg) by mouth daily for 90 doses. 90 tablet 1 Blood Glucose Monitoring Suppl (FreeStyle Lite) device Inject 1 each under the skin 3 times daily. Use as instructed E11.9 1 each 0 cholecalciferol (Vitamin D-3) 50 MCG (2000 UT) capsule Take 2,000 Units by mouth in the morning. FLUoxetine (PROzac) 20 MG capsule Take 1 capsule (20 mg) by mouth daily. 90 capsule 1 FREESTYLE LITE test strip 1 each by Other route 3 times daily. Use as instructed E11.9 200 each 1 glucose blood (FREESTYLE LITE) test strip TEST BLOOD SUGARS 6 TIMES DAILY; E 10.29, IDDM, insulin glargine (Lantus SoloStar) 100 UNIT/ML pen Inject 11 Units under the skin. insulin lispro (HumaLOG) 100 UNIT/ML injection Inject subcutaneously 10 units three times daily at meals. lisinopril 40 MG tablet Take 1 tablet (40 mg) by mouth daily for 90 doses. 90 tablet 1 Multiple Vitamin (MULTIVITAMIN ADULT PO) Take by mouth. Sure Comfort Pen [place] 31G X 8 MM mis triamcinolone (Kenalog) 0.1 % cream Apply topically 2 times daily. furosemide (Lasix) 40 MG tablet Take 1 tablet (40 mg) by mouth daily. 30 tablet 5 No current facility-administered medications for this visit. Also reviewed during this visit: The following health maintenance schedule was reviewed with the patient and provided in printed form in the after visit summary: Health Maintenance Topic Date Due Lipid Panel Never done Diabetes: Foot Exam Never done Diabetes: Dental Exam Never done Diabetes: Urine Albumin-Creatinine Ratio for Kidney Health Never done Hepatitis C Screening Never done RSV Immunization aged 60 or older (1 - 1-dose 60+ series) Never done Diabetes: Retinopathy Screening 08/31/2022 COVID-19 Vaccine (2022- season) 2022 Mammogram 06/21/2023 Depression Screening 10/13/2023 TSH Level 10/13/2023 Diabetes: Estimated Glomerular Filtration Rate for Kidney Health 05/01/2024 Diabetes: Hemoglobin A1C 06/15/2024 Medicare Annual Wellness (AWV) 08/18/2024 Vitamin B-12 10/13/2027 Colorectal Cancer Screening 10/21/2031 DTaP/Tdap/Td Vaccines (2 - Td or Tdap) 05/26/2033 Influenza Vaccine Completed Pneumococcal Vaccine: 65+ Years Completed Zoster Vaccines Completed Bone Density Scan Completed RSV Immunization under 20 Months Aged Out HIB Vaccines Aged Out Hepatitis B Vaccines Aged Out IPV Vaccines Aged Out Hepatitis A Vaccines Aged Out Meningococcal Vaccine Aged Out Rotavirus Vaccines Aged Out HPV Vaccines Aged Out List of current healthcare providers: Patient Care Team: Norberto Gómez DO as PCP - General (Family Medicine) Allen Rapp PA-C as Physician Utilization Review Specialist (Physician Utilization Review Specialist) Orders Placed This Encounter Procedures US abdomen complete Standing Status: Future Standing Expiration Date: 07/19/2024 Basic metabolic panel Standing Status: Future Number of Occurrences: 1 Standing Expiration Date: 07/19/2024 VITAMIN B1 Standing Status: Future Number of Occurrences: 1 Standing Expiration Date: 07/19/2024 Folate Standing Status: Future Number of Occurrences: 1 Standing Expiration Date: 07/19/2024 Transthoracic echocardiogram (TTE) complete with contrast, bubble, strain, and 3D PRN Standing Status: Future Standing Expiration Date: 07/19/2025 Order Specific Question: Contrast Enhancement (Bubble Study, Definity, Optison) may be used if criteria listed in established evidence-based protocol has been identified. Answer: Contrast and bubble study per evidence based protocol Review of Systems Constitutional: Negative for chills and fever. HENT: Negative for congestion and sore throat. Respiratory: Negative for cough and shortness of breath. Cardiovascular: Positive for leg swelling. Negative for chest pain. Gastrointestinal: Negative for abdominal pain, diarrhea, nausea and vomiting. Genitourinary: Negative for difficulty urinating, dysuria, frequency and urgency. Musculoskeletal: Negative for back pain. Neurological: Negative for dizziness and light-headedness. All other systems reviewed and are negative. Physical Exam Vitals reviewed. Constitutional: General: She is not in acute distress. Appearance: Normal appearance. She is not ill-appearing or toxic-appearing. Eyes: General: No scleral icterus. Conjunctiva/sclera: Conjunctivae normal. Pupils: Pupils are equal, round, and reactive to light. Cardiovascular: Rate and Rhythm: Normal rate and regular rhythm. Heart sounds: Normal heart sounds. Pulmonary: Effort: Pulmonary effort is normal. No respiratory distress. Breath sounds: Normal breath sounds. Musculoskeletal: Cervical back: Normal range of motion and neck supple. Right lower leg: Edema present. Left lower leg: Edema present. Skin: General: Skin is warm and dry. Neurological: Mental Status: She is alert. Psychiatric: Mood and Affect: Mood normal. Objective : BP 122/62 Pulse 71 Temp 36.4 C (97.5 F) (Temporal) Ht 5' 5 (1.651 m) Wt 135 lb 3.2 oz (61.3 kg) SpO2 100% BMI 22.50 kg/m No results found. Subjective : This is a 68-year-old female with an underlying history of breast cancer on the right side, hypertension hyperlipidemia anxiety, vitamin D deficiency, dependent edema, and uncontrolled type 1 diabetes who was just seen by her primary care physician 8 days ago for routine well check presents back tothe office today for Medicare annual. Has been having issues with ongoing leg edema, feeling unsteady on feet and had a fall in May Also concerned seeing endo for diabetes but sugar is still poorly controlled with most recent A1C at 9.0 Health Risk Assessment: General: General In general, how would you say your health is?: (!) Fair In the past 7 days, have you experienced any of the following: New or Increased Pain, New or Increased Fatigue, Loneliness, Social Isolation, Stress or Anger?: (!) Yes Select all that apply: (!) New or Increased Pain, New or Increased Fatigue, Loneliness, Social Isolation, Stress, Anger Do you get the social and emotional suppport you need?: Yes Interventions: Lengthy discussion with patient about grieving as she lost her is within the last 6months. Which is contributing to generalized fatigue isolation loneliness and anger frustration as she continues to go through the grieving process Health Habits/Nutrition: Health Habits / Nutrition On average, how many days per week do you engage in moderate to strenous exercise (like a brisk walk)?: (!) 0 days On average, how man minutes do you engage in exercise at this level?: (!) 0 min Have you lost any weight without trying in the past 3 months? : No Have you seen the dentist within the past year?: (!) No Interventions: Encouraged to try to but fears of falling since fallen back in May due to swelling in legs and feeling unsteady. Last dentist appointment was 2 years ago so dropped insurance and no reported issues. Hearing/ Vision: Hearing / Vision Do you or your family notice any trouble with your hearing that hasn't been managed with hearing aids?: No Do you have difficulty driving, watching TV, or doing any of your daily activities because of your eyesight?: No Have you had an eye exam within the past year?: Yes No results found. Safety: Safety Do you have a working smoke detector?: Yes Do you have any tripping hazards - loose or unsecured carpets or rugs?: No Do you have any tripping hazards - clutter in doorways, halls, or stairs?: No Do you have either shower bars, grab bars, non-slip mats or non-slip surfaces in your shower or bathtub? : Yes Do all your stairways have a railing or banister? : Yes Do you fasten your seatbelt when you are in a car?: Yes ADL: ADL In the past 7 days, did you need help from others to perform any of the following everyday activities: Eating, dressing, grooming,bathing, toileting, or walking / balance? : No In the past 7 days, did you need help from others to take care of any of the following: laundry, housekeeping, banking / finances,shopping, telephone use, food preparation, transportation, or taking medications? : Yes Select all that apply: Laundry, Shopping, Transportation Interventions: Living Will: Living Will Do you have a living will?: Yes Cognitive: Cognitive Screening: Mini-Cog Clock Drawing Test (CDT): 2 Words Recalled: 3 (used words apple car kylie) Total Score: 5 Total Score Interpretation: Normal Mini-Cog Fall Risk: Fall Risk One or more falls in the last year:: Yes Advised to use a cane or walker to get around safely:: Yes (uses walker) Feels unsteady when walking:: Yes Steadies self on furniture while walking at home:: Yes Worried about falling:: Yes Interventions: Home safety tips provided and concerned that she might fall and is unsteady she is reluctant to usethe shower because of the ongoing issues with peripheral edema discussed with her to continue working through the problem we will try to ascertain the cause of her peripheral edema and help her resolve the issue. She is to continue wearing her compression stockings. Depression Screening: Over the past 2 weeks, how often have you been bothered by any of the following problems? Little interest or pleasure in doing things: Several days Feeling down, depressed, or hopeless: Several days Patient Health Questionnaire-2 Score: 2 If you checked off any problems on this questionnaire so far, How difficult have these problems made it for you to do your work, take care of things at home, or get along with other people?: Somewhat difficult Interventions: Discussed at length the grieving process with the patient at this point time she is not. withdrawn or needs immediate grief counseling. Tobacco Use: Social History Tobacco Use Smoking Status Never Smokeless Tobacco Never Alcohol Use: Audit Alcohol Screening Q1: How often do you have a drink containing alcohol?: 2-3 times a week Q2: How many drinks containing alcohol do you have on a typical day when you are drinking?: 1 or 2 Q3: How often do you have six or more drinks on one occasion?: Never Audit-C Score: 3 Skip to questions 9-10?: 1 Interventions: Discussed alcohol moderation as she does states she will drink whiskey from time to time also reports drinking several glasses of wine daily or occasional use of whiskey. documented in this [facility]05-30-2024 Instructions* Patient Instructions* Allen Rapp PA-C - 07/20/2023 11:20 AM EDT A ultrasound of your abdomen and your heart has been ordered for you. Central scheduling should reach out to you within the next several days to schedule this appropriately. If you do not hear from central scheduling within the next several days please do not wait more than 1 week. Reach out to central scheduling to verify that the test has been ordered and to get it scheduled. Their number is [phone]. Personalized Preventative Plan for Franky Villanueva - 07/20/2023 Medicare offers a range of preventative health benefits. Some of the tests and screenings are paid in full while others may be subject to a deductible, co- insurance, and / or copay. Some of these benefits include a comprehensive review of your medical history including lifestyle, illnesses that mayrun in your family, and various assessments and screenings as appropriate. After reviewing your medical record and screening and assessments performed today, your provider may have ordered immunizations, labs, imaging, and / or referrals for you. A list of these orders (if applicable) as well as your Preventative Care list are included within your After Visit Summary for your review. Other Preventative Recommendations: A preventive eye exam by an inventory specialist is recommended every 1-2 years to screen for glaucoma, cataracts, macular degeneration, and other eye disorders. A preventive dental visit is recommended every 6 months. Try to get at least 150 minutes of exercise per week or 10,000 steps per day on a pedometer. You need 1200-1500mg of calcium and [id number] international units of vitamin D per day. It is possible to meet your calcium requirement with diet alone, but a vitamin D supplement is usually necessary to meet this goal. When exposed to the sun, use a sunscreen that protects against both UVA and UVB radiation with an SPF of 30 or greater. Reapply every 2-3 hours or after sweating, drying off with a towel, or swimming. Always wear a seat belt when traveling in a car. Always wear a helmet when riding a bicycle or a motorcycle documented in this [facility]05-22-2024 History of Present illness Narrative* Norberto Gómez, - 07/12/2023 11:00 AM EDT Images from the original note were not included. [facility] [address] [place] [address] [facility] [id number] Visit type: Established Patient Reason for Visit: discuss swelling (In both legs ) Assessment / Plan: Franky was seen today for discuss swelling. Diagnoses and all orders for this visit: Dependent edema (Primary) Comments: Recurrent, increase Lasix 40 mg daily. 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 Urged to apply any type of skin moisturizer at least twice a day. Need to get her diabetes under better control Uncontrolled type 1 diabetes mellitus with hyperglycemia (HCC) Comments: Uncontrolled for quite a while. Urged to follow-up endocrinologic recommendations. Orders: - Handicap Placard Dyspnea, unspecified Comments: Minimal, possible echocardiogram if elev BNP , Orders: - NT PRO BNP; Future - NT PRO BNP Hypercholesterolemia Comments: Stable, continue Lipitor History of right breast cancer Comments: Noted, recommend breast exam at next visit and mammogram. Subjective: Patient ID: Franky Villanueva is a 68 y.o. female. HPI uncontrolled type II diabetic presents for follow-up on leg edema. Has been worsening for 6 months. Has developed worsening of chronic scaliness of her feet. Recent chest x-ray negative. Other causes of edema were excluded with normal renal liver function and venous Dopplers of her legs. 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 Review of Systems Denies pain in her legs. Developing some symptoms of neuropathy with heightened sensation in her legs. A1c is up not been near normal. She denies chest pain or PND orthopnea or palpitations. No coughor congestion. No vomiting or diarrhea. No abdominal pain or swelling. Of note history of breast cancer on her right side almost 19 years ago. Overdue for mammogram and breast exam -she has no breast complaints No Known Allergies Current Outpatient Medications on File Prior to Visit Medication Sig Dispense Refill atorvastatin (Lipitor) 10 MG tablet Take 1 tablet (10 mg) by mouth daily for 90 doses. 90 tablet 1 Blood Glucose Monitoring Suppl (FreeStyle Lite) device Inject 1 each under the skin 3 times daily. Use as instructed E11.9 1 each 0 cholecalciferol (Vitamin D-3) 50 MCG (2000 UT) capsule Take 2,000 Units by mouth in the morning. FLUoxetine (PROzac) 20 MG capsule Take 1 capsule (20 mg) by mouth daily. 90 capsule 1 furosemide (Lasix) 20 MG tablet Take 20 mg by mouth in the morning. glucose blood (FREESTYLE LITE) test strip TEST BLOOD SUGARS 6 TIMES DAILY; E 10.29, IDDM, insulin glargine (Lantus SoloStar) 100 UNIT/ML pen Inject 11 Units under the skin. insulin lispro (HumaLOG) 100 UNIT/ML injection Inject subcutaneously 10 units three times daily at meals. lisinopril 40 MG tablet Take 1 tablet (40 mg) by mouth daily for 90 doses. 90 tablet 1 Multiple Vitamin (MULTIVITAMIN ADULT PO) Take by mouth. Sure Comfort Pen [place] 31G X 8 MM [facility] [place] FREESTYLE LITE test strip 1 each by Other route 3 times daily. Use as instructed E11.9 200 each 1 triamcinolone (Kenalog) 0.1 % cream Apply topically 2 times daily. [DISCONTINUED] hydroCHLOROthiazide (HYDRODiuril) 25 MG tablet Take 1 tablet (25 mg) by mouth daily.30 tablet 1 No current facility-administered medications on file prior to visit. 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) Social History Tobacco Use Smoking status: Never Smokeless tobacco: Never Substance Use Topics Alcohol use: Yes Past Surgical History: Procedure Laterality Date BREAST LUMPECTOMY Right 2004 CA Breast COLONOSCOPY 09/2021 Friend- divert ds- due 2031 COLONOSCOPY 2007 ESOPHAGOGASTRODUODENOSCOPY 09/2021 Esophageal candidiasis Family History Problem Relation Name Age of Onset Other Mother in 90s Coronary artery disease Father acute DC, at age 94 Parkinsonism Brother 75 Breast cancer Mother's Sister Objective: BP 132/68 Pulse 68 Temp 36.1 C (97 F) (Temporal) Ht 5' 5 (1.651 m) Wt 133 lb (60.3 kg) SpO2 97% BMI 22.13 kg/m Physical Exam pleasant alert and oriented. Blood pressure stable. No JVD adenopathy or thyroid lesions. No carotid bruits. Heart is regular without appreciable murmurs or ectopy. Lungs are diminishedbut without rales wheezes or egophony. Abdomen without pain hepatosplenomegaly masses or ascites. Femoral pulses are fair. 1+ leg edema of the Feet and toes. A lot of diabetic skin changes noted. No signs of cellulitis. Poor toenail care. Pulses are diminished but evident. There is no motor loss of the legs and feet. Toes downgoing no clonus EKG WNL, Recent LDL at goal at 69, CBC and renal function normal documented in this [facility]05-01-2024 Telephone encounter Note* Telephone Encounter - Lorene Blackwell RN - 06/21/2023 11:01 AM EDT Requester: Patient [facility] told her that the RX does not have refills, it seems she never activated the 10/2022 RX so it is now . Please re-send. Last Visit in Endocrinology: Provider name: Michael Rodriguez MD , Date 06/16/2023 Next Scheduled Appt in Endo: 12/20/2023 Last Refill: 10/2022 Number of Refills given: 3 Requested Prescriptions Pending Prescriptions Disp Refills blood sugar diagnostic (FREESTYLE LITE STRIPS) test strip 600 Strip 3 Sig: TEST BLOOD SUGARS 6 TIMES DAILY; E 10.29, IDDM, Please review and advise. Lorene Blackwell RN [facility]05-01-2024 Miscellaneous Notes* Telephone Encounter - Lorene Blackwell RN - 06/21/2023 11:01 AM EDT Requester: Patient [facility] told her that the RX does not have refills, it seems she never activated the 10/2022 RX so it is now . Please re-send. Last Visit in Endocrinology: Provider name: Michael Rodriguez MD , Date 06/16/2023 Next Scheduled Appt in Endo: 12/20/2023 Last Refill: 10/2022 Number of Refills given: 3 Requested Prescriptions Pending Prescriptions Disp Refills blood sugar diagnostic (FREESTYLE LITE STRIPS) test strip 600 Strip 3 Sig: TEST BLOOD SUGARS 6 TIMES DAILY; E 10.29, IDDM, Please review and advise. Lorene Blackwell RN documented in this encounterProm[facility]04-26-[facility] Instructions* Patient Instructions* Michael Rodriguez MD - 06/16/2023 11:50 AM EDT A1C 9.6% Start vitamin D3 2000 units daily, OTC. Take insulin for all carbohydrate intake. Get labs done at [facility] Will call with results. See me again in 6 months. Try furosemide 20 mg daily for several days in a row, instead of hydrochlorothiazide. Suction cup bars for the shower +/- shower chair. documented in this encounterProm[facility]04-[facility] History of Present illness Narrative* Michael Rodriguez MD - 06/16/2023 11:39 AM EDT Follow-up 68 year-old female, patient of Dr. Norberto Gómez, with type 1 diabetes mellitus since 1974. Last seen here in 10/2022 by SERVANDO Greer. She continues multiple daily insulin injections(MDII): Humalog KwikPen with Lantus SoloStar at bedtime. She continues to carbohydrate count (1:10), and use correction ratio of 1:50 for hyperglycemic excursions. Blood sugars remain labile. She is checking blood sugars, mostly before meals, 5x daily, using an AccuChek Alvina meter . She did not bring blood sugars in for review today. Medication list, insulin doses reviewed with the patient, reconciled. Stable background diabetic retinopathy on her last diabetic eye exam in 05/2021. Non- smoker, occasional alcohol use. NKDA. Usual adult height was 65.25. She stopped taking Fosamax weekly, had been on for over 5 years. No fractures. Had a flu shot this past (2022) fall. No recent hypoglycemiain the middle of the night. No interval height loss or fractures. Fasting readings are being checked.. Not checking after meals as much. Has had COVID vaccination. Refuses CGMS. Her in 11/2022. Problems with swelling in her legs. HCTZ not helping. Current Outpatient Medications on File Prior to Visit Medication Sig insulin lispro (HUMALOG KWIKPEN INSULIN) 100 unit/mL Inject subcutaneously 1:10 TID meals and correction 1:50 over 150 up to 30 units daily insulin glargine (LANTUS SOLOSTAR U-100 INSULIN) 100 unit/mL (3 mL) Inject 11 Units subcutaneously daily at bedtime. blood sugar diagnostic (FREESTYLE LITE STRIPS) test strip TEST BLOOD SUGARS 6 TIMES DAILY; E 10.29,IDDM, insulin needles, DISPOSABLE, (SURE COMFORT PEN NEEDLE) 31 gauge x 5/16 USE 4 PEN NEEDLES DAILY FORINSULIN PEN USE atorvastatin (LIPITOR) 10 mg tablet Take 1 tablet by mouth once daily. FLUoxetine HCl 20 mg tablet Take 1 tablet by mouth once daily. lisinopril (ZESTRIL) 40 mg tablet Take 1 tablet by mouth once daily. Blood-Glucose Meter (FREESTYLE LITE METER) monitoring kit Use to glucose as directed. Review of patient's allergies indicates: No Known Allergies Review of systems: Patient notes no weight loss, fever, fatigue, weakness, change in balance or sensation, visual problems, hearing changes, dizziness, trouble swallowing, nasal difficulties, shortness of breath, chest pain, change in exertional tolerance, foot or leg problems, skin lesions, abdominal pain, diarrhea, constipation, urinary problems, incontinence, back pain, joint pains, anxiety, depression, insomnia, menstrual difficulties, breast lesions/pain/mass. Remainder of review of systems was unremarkable. BP 164/65 Pulse 73 Resp 16 Ht 165.1 cm (5' 5) Wt 58.6 kg (129 lb 3 oz) SpO2 100% BMI 21.50 kg/m Weight up 8 pounds since 10/2022. General appearance: Well-appearing female, alert, in no acute distress, well- hydrated, well nourished. BP elevated. Repeat BP 138/60 Skin: Skin color, texture, turgor normal, no suspicious rashes or lesions Head: normocephalic, no masses, lesions, tenderness or abnormalities Eyes: Anicteric sclera. Pupils are equally round. Extraocular movements are intact. Ears: not examined Nose/Sinuses: Nares normal. No drainage or sinus tenderness. Oropharynx: Lips, mucosa, and tongue normal, teeth and gums not examined. Neck: Supple, no adenopathy; no visible thyroid enlargement. Lungs: Breathing unlabored. Heart: RRR. No ectopy Abdomen: deferred Musculoskeletal: Spine range of motion not tested. Muscular strength intact, No joint swelling, deformity, or tenderness Neuro: Gait normal. Sensation grossly intact. 2-3+ edema in LE's A1C today via Afinion was 9.6%. Labs in 04/2023 showed normal CMP, 12/2022 showed 25-hydroxyvitamin D 10 DEXA bone densitometry in 2012 showed T-scores as follows: lumbar 0.0, hip -0.5, femoral neck 0.0. DEXA bone densitometry in 09/2019 showed T-scores as follows: lumbar -0.6, hip - 1.2, femoral neck -1.0. DEXA bone densitometry 02/2022 showed T-scores as follows: lumbar -0.7, hip -0.7, femoral neck -1.5. IMPRESSION: Type 1 diabetes mellitus with retinopathy - unimproved control. Encouraged her to check post-prandial glucose levels more consistently, dose insulin with all carbohydrate intake. Check urine microalbumin/creatinine ratio. Retinopathy stable. Osteopenia - stable historically, repeat DXA in 2024 Hypertension - fair control. Hyperlipidemia - check lipid panel on atorvastatin 10 mg daily LE edema - change HCTZ to furosemide 20 mg every day prn Vitamin D deficiency - start vitamin D3 2000 units every day PLAN: Furosemide 20 mg every day prn - described use, side effects Get fasting labs done - lipid panel, urine microalbumin/creatinine ratio Will call with results See us again in 6 months. Michael Rodriguez M.D. I spent a total of 30 minutes on the date of service which included preparing to see the patient, [id number] patient care, completing clinical documentation, performing a medically appropriate examination, counseling and educating the patient/family/caregiver and ordering medications, tests, or procedures. documented in this encounterPromed[facility]04-[facility]-2024 Telephone encounter Note * Telephone Encounter - Feleciamariam Koroma - 05/30/2023 4:45 PM EDT Orders pended for doctor signature [id number] Miscellaneous Notes* Telephone Encounter - Felecia Koroma - 05/30/2023 4:45 PM EDT Orders pended for doctor signature documented in this [facility]04-09-2024 History of Present illness Narrative* Norberto Gómez DO - 05/30/2023 4:00 PM EDT Images from the original note were not included. [facility] [address] [place] [address] [facility] [phone] Visit type: Established Patient Reason for Visit: Vaginal Discharge, Vaginal Odor, and Leg Swelling Assessment / Plan: Franky was seen today for vaginal discharge, vaginal odor and leg swelling. Diagnoses and all orders for this visit: Gardnerella associated vaginal discharge (Primary) Comments: Recurrent, metronidazole Orders: - Culture Bacteria Vaginal; Future - Culture Bacteria Vaginal Dependent edema Comments: Recurrent, add HCTZ, check chest x-ray and venous Dopplers and lab Orders: - XR chest 2 views; Future Primary hypertension Comments: Stable continue lisinopril and add HCTZ due to edema Decreased breath sounds at right lung base Comments: Abnormal, check x-ray Orders: - XR chest 2 views; Future Closed fracture of sacrum and coccyx with routine healing, subsequent encounter Comments: Healing, no concerns Uncontrolled type 1 diabetes mellitus with hyperglycemia (HCC) Comments: Uncontrolled, urged follow-up with endocrinology. JENN (generalized anxiety disorder) Comments: Stable, continue Prozac encouragement given Abrasion of upper extremity, unspecified laterality, subsequent encounter Comments: Clean wound, first-aid ointment twice daily with appropriate bandage. Call with worsening symptoms Other orders - FLUoxetine (PROzac) 20 MG capsule; Take 1 capsule (20 mg) by mouth daily. - hydroCHLOROthiazide (HYDRODiuril) 25 MG tablet; Take 1 tablet (25 mg) by mouth daily. - metroNIDAZOLE (Flagyl) 250 MG tablet; Take 1 tablet (250 mg) by mouth 3 times daily for 7 days. Subjective: Patient ID: Franky Villanueva is a 68 y.o. female. HPI uncontrolled type 1 diabetic on insulin presents concerned about a few issues. Most recently she has had a vaginal discharge of a foul-smelling slightly perera-brown material. Has not sexually active. Denies abdominal pain. No breakthrough vaginal bleeding. Also fell a few days ago due to her balance issue and fractured her coccyx. Also has abrasion of her right arm that she would like me to look at. Also concerned about recurrent leg edema bilaterally for many weeks. Overall sadness and depressiondue to the loss of her last year. Prozac has been beneficial. Review of Systems A1c over 9. Not seeing endocrinology routinely. No night sweats fevers or chills. Weight is down a few pounds. No recent earache sore throat or cough. Denies a sense of dyspnea chest pain palpitations or orthopnea. Leg edema has been chronic on both sides. Nontender calves. Denies dysphagia or abdominal pain. Eating and voiding pretty well. No vomiting or diarrhea. No dysuria. No Known Allergies Current Outpatient Medications on File Prior to Visit Medication Sig Dispense Refill atorvastatin (Lipitor) 10 MG tablet Take 1 tablet (10 mg) by mouth daily for 90 doses. 90 tablet 1 Blood Glucose Monitoring Suppl (FreeStyle Lite) device Inject 1 each under the skin 3 times daily. Use as instructed E11.9 1 each 0 FREESTYLE LITE test strip 1 each by Other route 3 times daily. Use as instructed E11.9 200 each 1 glucose blood (FREESTYLE LITE) test strip TEST BLOOD SUGARS 6 TIMES DAILY; E 10.29, IDDM, insulin glargine (Lantus SoloStar) 100 UNIT/ML pen Inject 11 Units under the skin. insulin lispro (HumaLOG) 100 UNIT/ML injection Inject subcutaneously 10 units three times daily at meals. lisinopril 40 MG tablet Take 1 tablet (40 mg) by mouth daily for 90 doses. 90 tablet 1 Multiple Vitamin (MULTIVITAMIN ADULT PO) Take by mouth. Sure Comfort Pen [place] 31G X 8 MM misc [DISCONTINUED] FLUoxetine (PROzac) 20 MG capsule Take 20 mg by mouth daily. [DISCONTINUED] FLUoxetine (PROzac) 20 MG tablet Take 1 tablet (20 mg) by mouth daily. (Patient not taking: Reported on 05/30/2023) 90 tablet 1 No current facility-administered medications on file prior to visit. Patient Active Problem List Diagnosis History of right breast cancer Vaginal stenosis Primary hypertension Encounter for annual wellness visit (AWV) in Medicare patient Dry skin dermatitis Hypercholesterolemia Anxiety Vitamin D deficiency Caregiver stress Dependent edema Social History Tobacco Use Smoking status: Never Smokeless tobacco: Never Substance Use Topics Alcohol use: Yes Past Surgical History: Procedure Laterality Date BREAST LUMPECTOMY Right 2004 [place] Breast COLONOSCOPY 09/2021 Friend- divert ds- due 2031 COLONOSCOPY 2006 ESOPHAGOGASTRODUODENOSCOPY 09/2021 Esophageal candidiasis Family History Problem Relation Name Age of Onset Other Mother in 90s Coronary artery disease Father acute DC, at age 94 Parkinsonism Brother 75 Breast cancer Mother's Sister Objective: BP 123/58 (BP Location: Left arm, Patient Position: Sitting, BP Cuff Size: Large adult) Pulse 75 Temp 36.5 C (97.7 F) (Temporal) Ht 5' 5 (1.651 m) Wt 131 lb (59.4 kg) SpO2 98% BMI 21.80 kg/m Physical Exam pleasant cooperative. Not acutely ill in appearance. Moist mucous membranes. Normal oropharynx. No JVD or neck masses. No adenopathy or carotid bruits. No thyroid lesions. Heart is ratewithout gallops or murmurs or ectopy. Lungs are very diminished in the right base. No rales or egophony or rhonchi. Abdomen scaphoid without pain hepatosplenomegaly or masses or ascites. Femoral pulses are good. No bruits. No obvious ecchymosis of the coccyx but it was tender. Is a 1 x 2 inch abrasion that is superficial involving the right upper extremity. No induration or pus. It was cleaned first-aid ointment, and bandaged. Extremities have edema of the calves and slightly popliteal space. Nontender thighs and calves. Color and temperature of the feet are fair. Posterior tibial pulses are adequate. Vulvar exam is normal. No skin lesions noted. Speculum exam was very difficult but there was a greyslightly malodorous discharge. Could not visualize the cervix, but digital exam revealed a nontender cervix , small uterus and no vaginal masses documented in this [facility]04-06-2024 Hospital Discharge instructions Additional Instructions You have fractured your coccyx which is your tailbone. This will heal on its own over 6 to 8 weeks. You can ice and take Tylenol every 6 hours as needed. I recommend buying a donut pillow so that when you sit you do not put pressure on the area. I also want to avoid straining to have a bowel movement as this can cause increased pain so use stool softeners as needed such as MiraLAX or Colace.[facility] Work Phone: [phone] 240-894903-12-2024 Evaluation + Plan note* Assessment & Plan Note - Ramsey Greer MD - 05/02/2023 1:10 PM EDTAssociated Problem(s): Dependent edema We had a extended discussion on what causes dependent edema. Explained to her that blood vessels leak and gravity takes fluid where gravity takes fluid. Explained why fluid leaks from blood vessels and what we need to look for up to make sure that on Monday pressure is maximized and that her blood pressure is under control. We will get labs today and we will adjust her blood pressure medication if needed and she is avoid as much sodium as possible. [facility] [id number] Miscellaneous Notes* Assessment & Plan Note - Ramsey Greer MD - 05/02/2023 1:10 PM EDTAssociated Problem(s): Dependent edema We had a extended discussion on what causes dependent edema. Explained to her that blood vessels leak and gravity takes fluid where gravity takes fluid. Explained why fluid leaks from blood vessels and what we need to look for up to make sure that on Monday pressure is maximized and that her blood pressure is under control. We will get labs today and we will adjust her blood pressure medication if needed and she is avoid as much sodium as possible. * Assessment & Plan Note - Ramsey Greer MD - 05/02/2023 1:08 PM EDT Associated Problem(s): Primary hypertension Blood pressure was initially elevated, recheck was normal. documented in this [facility]03-12-2024 Evaluation + Plan note* Assessment & Plan Note - Ramsey Greer MD - 05/02/2023 1:08 PM EDT Associated Problem(s): Primary hypertension Blood pressure was initially elevated, recheck was normal. [facility] [id number] History of Present illness Narrative* Misa Godoy MA - 05/02/2023 10:45 AM EDT Patient verified by last name and date of . * Ramsey Greer MD - 05/02/2023 10:45 AM EDT Images from the original note were not included. 05/02/2023 Franky Villanueva (: 1955) is a 68 y.o. female , Established patient, here for evaluation of thefollowing chief complaint(s): Leg Swelling (B/l ) and Diabetes ASSESSMENT/PLAN: 1. Dependent edema Assessment & Plan: We had a extended discussion on what causes dependent edema. Explained to her that blood vessels leak and gravity takes fluid where gravity takes fluid. Explained why fluid leaks from blood vessels and what we need to look for up to make sure that on Monday pressure is maximized and that her blood pressure is under control. We will get labs today and we will adjust her blood pressure medication if needed and she is avoid as much sodium as possible. Orders: - Comprehensive metabolic panel - CBC 2. Primary hypertension Assessment & Plan: Blood pressure was initially elevated, recheck was normal. Follow up in about 4 weeks (around 05/30/2023) for with pcp. SUBJECTIVE/OBJECTIVE: HPI -Franky comes in today complaining that she been having some swelling in her legs up to her knees for the last 3 months. She has no pain with this she has no shortness of breath or palpitations. Blood pressure is elevated today we will recheck that prior to discharge. Review of Systems Constitutional: Negative for chills and fever. Respiratory: Negative for shortness of breath. Cardiovascular: Positive for leg swelling. Negative for chest pain and palpitations. Vitals: 05/02/23 1021 05/02/23 1113 BP: (!) 192/72 136/64 Pulse: 69 73 SpO2: 98% 99% Weight: 130 lb (59 kg) Height: 5' 5.25 (1.657 m) Physical Exam Vitals and nursing note reviewed. Constitutional: General: She is not in acute distress. Appearance: Normal appearance. HENT: Head: Normocephalic and atraumatic. Mouth/Throat: Mouth: Mucous membranes are moist. Pharynx: Oropharynx is clear. Eyes: Extraocular Movements: Extraocular movements intact. Pupils: Pupils are equal, round, and reactive to light. Cardiovascular: Rate and Rhythm: Normal rate and regular rhythm. Heart sounds: Normal heart sounds. No murmur heard. Pulmonary: Effort: Pulmonary effort is normal. Breath sounds: Normal breath sounds. Musculoskeletal: Cervical back: Neck supple. Right lower le+ Pitting Edema present. Left lower le+ Pitting Edema present. Lymphadenopathy: Cervical: No cervical adenopathy. Neurological: Mental Status: She is alert. An electronic signature was used to authenticate this note. Ramsey Greer MD 05/02/2023 1:11 PM documented in this [facility]03-11-2024 Telephone encounter Note* Telephone Encounter - Kaitlin Lipscomb RN - 05/01/2023 8:46 AM EDT S: Patient spoke with [facility] nurse regarding leg swelling B: Onset of symptoms/concern several months ago with worsening symptoms today. A: Patient reports bilateral swelling of legs that extends up to the knees. Patient states that shebelieves it is due to her diagnosis of diabetic neuropathy. Patient denies redness, fever, pain, shortness of breath. R: POD scheduled acute. Patient understands care advice. No further needs at this time. Patient instructed to call back with new or worsening symptoms. Reason for Disposition MODERATE swelling of both ankles (e.g., swelling extends up to the knees) AND new-onset or worsening Answer Assessment - Initial Assessment Questions 1. ONSET: When did the swelling start? (e.g., minutes, hours, days) Several months ago 2. LOCATION: What part of the leg is swollen? Are both legs swollen or just one leg? Both legs up to knees 3. SEVERITY: How bad is the swelling? (e.g., localized; mild, moderate, severe) - Localized: Small area of swelling localized to one leg. - MILD pedal edema: Swelling limited to foot and ankle, pitting edema < 1/4 inch (6 mm) deep, rest and elevation eliminate most or all swelling. - MODERATE edema: Swelling of lower leg to knee, pitting edema > 1/4 inch (6 mm) deep, rest and elevation only partially reduce swelling. - SEVERE edema: Swelling extends above knee, facial or hand swelling present. sever 4. REDNESS: Does the swelling look red or infected? no 5. PAIN: Is the swelling painful to touch? If Yes, ask: How painful is it? (Scale 1-10; mild, moderate or severe) No pain 6. FEVER: Do you have a fever? If Yes, ask: What is it, how was it measured, and when did it start? no 7. CAUSE: What do you think is causing the leg swelling? neuropathy 8. MEDICAL HISTORY: Do you have a history of blood clots (e.g., DVT), cancer, heart failure, kidney disease, or liver failure? no 9. RECURRENT SYMPTOM: Have you had leg swelling before? If Yes, ask: When was the last time? What happened that time? One going 10. OTHER SYMPTOMS: Do you have any other symptoms? (e.g., chest pain, difficulty breathing) no 11. : Is there any chance you are ? When was your last menstrual period? no Protocols used: Leg Swelling and [id number] [facility] [id number] Miscellaneous Notes* Telephone Encounter - Kaitlin Lipscomb RN - 05/01/2023 8:46 AM EDT S: Patient spoke with [facility] nurse regarding leg swelling B: Onset of symptoms/concern several months ago with worsening symptoms today. A: Patient reports bilateral swelling of legs that extends up to the knees. Patient states that shebelieves it is due to her diagnosis of diabetic neuropathy. Patient denies redness, fever, pain, shortness of breath. R: POD scheduled acute. Patient understands care advice. No further needs at this time. Patient instructed to call back with new or worsening symptoms. Reason for Disposition MODERATE swelling of both ankles (e.g., swelling extends up to the knees) AND new-onset or worsening Answer Assessment - Initial Assessment Questions 1. ONSET: When did the swelling start? (e.g., minutes, hours, days) Several months ago 2. LOCATION: What part of the leg is swollen? Are both legs swollen or just one leg? Both legs up to knees 3. SEVERITY: How bad is the swelling? (e.g., localized; mild, moderate, severe) - Localized: Small area of swelling localized to one leg. - MILD pedal edema: Swelling limited to foot and ankle, pitting edema < 1/4 inch (6 mm) deep, rest and elevation eliminate most or all swelling. - MODERATE edema: Swelling of lower leg to knee, pitting edema > 1/4 inch (6 mm) deep, rest and elevation only partially reduce swelling. - SEVERE edema: Swelling extends above knee, facial or hand swelling present. sever 4. REDNESS: Does the swelling look red or infected? no 5. PAIN: Is the swelling painful to touch? If Yes, ask: How painful is it? (Scale 1-10; mild, moderate or severe) No pain 6. FEVER: Do you have a fever? If Yes, ask: What is it, how was it measured, and when did it start? no 7. CAUSE: What do you think is causing the leg swelling? neuropathy 8. MEDICAL HISTORY: Do you have a history of blood clots (e.g., DVT), cancer, heart failure, kidney disease, or liver failure? no 9. RECURRENT SYMPTOM: Have you had leg swelling before? If Yes, ask: When was the last time? What happened that time? One going 10. OTHER SYMPTOMS: Do you have any other symptoms? (e.g., chest pain, difficulty breathing) no 11. : Is there any chance you are ? When was your last menstrual period? no Protocols used: Leg Swelling and [id number] documented in this encounterSOhio State University Wex[facility] Medical [id number] Telephone encounter Note* Telephone Encounter - Anna Cisneros MA - 04/10/2023 10:[address] [facility] [id number] Miscellaneous Notes* Telephone Encounter - Anna Cisneros MA - 04/10/2023 10:33 AM EST Noted * Telephone Encounter - Trinidad Raymond RN - 04/10/2023 10:15 AM EST S: Patient spoke with [facility] nurse regarding swelling and discoloration in legs B: Onset of symptoms/concern chronic A: Pt reporting worsening of bilateral lower leg edema. Skin of lower legs looks blotchy. Denies fever, CP, calf pain, or breathing difficulty. Requesting appt, but only wants to see Dr Gómez and only on a or . R: First available appt (that pt accepted) scheduled for 05/15 at 9:30 am. Patient understands care advice. No further needs at this time. Patient instructed to call back with new or worsening symptoms. Reason for Disposition Mild swelling of both ankles and chronic (unchanged) Protocols used: Leg Swelling and [id number] documented in this encounterSOhio State University Wexner Medical [id number] Telephone encounter Note* Telephone Encounter - Trinidad Raymond RN - 04/10/2023 10:15 AM EST S: Patient spoke with [facility] nurse regarding swelling and discoloration in legs B: Onset of symptoms/concern chronic A: Pt reporting worsening of bilateral lower leg edema. Skin of lower legs looks blotchy. Denies fever, CP, calf pain, or breathing difficulty. Requesting appt, but only wants to see Dr Gómez and only on a or . R: First available appt (that pt accepted) scheduled for 05/15 at 9:30 am. Patient understands care advice. No further needs at this time. Patient instructed to call back with new or worsening symptoms. Reason for Disposition Mild swelling of both ankles and chronic (unchanged) Protocols used: Leg Swelling and [id number] [facility] [id number] Evaluation + Plan note* Assessment & Plan Note - Lizz Whitfield MD - 11/16/2022 11:08 AM EDTAssociated Problem(s): Vitamin D deficiency - gave patient an order to have her Vitamin D level checked in a month to determine ongoing dosing when she has completed 8 weeks of the high dose therapy [facility] [id number] Miscellaneous Notes* Assessment & Plan Note - Lizz Whitfield MD - 11/16/2022 11:08 AM EDTAssociated Problem(s): Vitamin D deficiency - gave patient an order to have her Vitamin D level checked in a month to determine ongoing dosing when she has completed 8 weeks of the high dose therapy * Assessment & Plan Note - Lizz Whitfield MD - 11/16/2022 11:07 AM EDT Associated Problem(s): Caregiver stress - provided info on [facility] for if he ever needs it to alleviate some of patient's worryabout the future * Assessment & Plan Note - Lizz Whitfield MD - 11/16/2022 11:06 AM EDT Associated Problem(s): Anxiety - highly recommended seeing both a psychiatrist and a psychologist to manage anxiety - patient agreeable - we gave her a list of providers in her area that offer both services - reviewed that anxiety is likely the reason for her memory loss documented in this [facility]09-27-2023 Evaluation + Plan note* Assessment & Plan Note - Lizz Whitfield MD - 11/16/2022 11:07 AM EDT Associated Problem(s): Caregiver stress - provided info on [facility] for if he ever needs it to alleviate some of patient's worryabout the future [facility] [id number] Evaluation + Plan note* Assessment & Plan Note - Lizz Whitfield MD - 11/16/2022 11:06 AM EDTAssociated Problem(s): Anxiety - highly recommended seeing both a psychiatrist and a psychologist to manage anxiety - patient agreeable - we gave her a list of providers in her area that offer both services - reviewed that anxiety is likely the reason for her memory loss [facility] [id number] History of Present illness Narrative* Lizz Whitfield MD - 11/16/2022 10:45 AM EDT Images from the original note were not included. [facility] [address] [facility] [address] Dept: [phone] Dept Loc: [phone] Visit type: Rust Family Summary Conference Reason for Visit: Memory Loss Visit Date: 11/16/2022 Assessment and Plan 1. Anxiety Assessment & Plan: - highly recommended seeing both a psychiatrist and a psychologist to manage anxiety - patient agreeable - we gave her a list of providers in her area that offer both services - reviewed that anxiety is likely the reason for her memory loss 2. Vitamin D deficiency Assessment & Plan: - gave patient an order to have her Vitamin D level checked in a month to determine ongoing dosing when she has completed 8 weeks of the high dose therapy Orders: - Vitamin D Deficiency Screening (Vit D 25) 3. Caregiver stress Assessment & Plan: - provided info on [facility] services for if he ever needs it to alleviate some of patient's worryabout the future No follow-ups on file. Subjective Franky Villanueva is a 67 y.o. female who returns today for a Family Summary Conference to review the care plan based on the comprehensive geriatric assessment completed at the last appointment. Initial assessment 10/12/22. MoCA score: 30, MIS score: 15 Clock drawing score: 5 PHQ-9 score: 2 JENN score: 14 Patient update: no changes since last visit No Known Allergies Current Outpatient Medications Medication Sig Dispense Refill atorvastatin (Lipitor) 10 MG tablet Take 1 tablet (10 mg) by mouth daily for 90 doses. 90 tablet 1 Blood Glucose Monitoring Suppl (FreeStyle Lite) device Inject 1 each under the skin 3 times daily. Use as instructed E11.9 1 each 0 ergocalciferol (Vitamin D-2) 1.25 MG (33556 UT) capsule Take 1 capsule (1.25 mg) by mouth 1 (one) time per week for 8 doses. 8 capsule 0 FLUoxetine (PROzac) 20 MG tablet Take 1 tablet (20 mg) by mouth daily. 90 tablet 1 FREESTYLE LITE test strip 1 each by Other route 3 times daily. Use as instructed E11.9 200 each 1 glucose blood (FREESTYLE LITE) test strip TEST BLOOD SUGARS 6 TIMES DAILY; E 10.29, IDDM, insulin glargine (Lantus SoloStar) 100 UNIT/ML pen Inject 11 Units under the skin. insulin lispro (HumaLOG) 100 UNIT/ML injection Inject subcutaneously 10 units three times daily at meals. lisinopril 40 MG tablet Take 1 tablet (40 mg) by mouth daily for 90 doses. 90 tablet 1 Sure Comfort Pen [place] 31G X 8 MM misc No current facility-administered medications for this visit. Past Medical History: Diagnosis Date Breast cancer screening by mammogram 06/2022 Essential hypertension 2009 H/O colonoscopy 09/2021 Dr. Олег boone ds, due 2031 History of herpes genitalis History of right breast cancer 2004 s/p lumpectomy Type 1 diabetes mellitus (HCC) [facility] Social History Tobacco Use Smoking status: Never Smokeless tobacco: Never Substance Use Topics Alcohol use: Yes Past Surgical History: Procedure Laterality Date BREAST LUMPECTOMY Right 2004 [place] Breast COLONOSCOPY 09/2021 Dr. Олег boone ds- due 2031 COLONOSCOPY 2006 ESOPHAGOGASTRODUODENOSCOPY 09/2021 Esophageal candidiasis Family History Problem Relation Name Age of Onset Other Mother in 90s Coronary artery disease Father acute DC, at age 94 Parkinsonism Brother 75 Breast cancer Mother's Sister Family Status Relation Name Status Mother Father Sister Alive Brother Alive Mat Aunt (Not Specified) Objective Wt Readings from Last 3 Encounters: 10/12/22 123 lb 9.6 oz (56.1 kg) 07/04/22 122 lb (55.3 kg) 03/29/22 122 lb (55.3 kg) No physical exam performed Discussion only Data Reviewed and Summarized Problems and recommendations from initial assessment reviewed, Medications reviewed, Recent laboratory tests reviewed, and Recent diagnostic imaging reviewed Labs: Lab Results Component Value Date WBC 6.2 10/12/2022 HGB 13.1 10/12/2022 HCT 39.0 10/12/2022 MCV 91.3 10/12/2022 PLT 346 10/12/2022 Lab Results Component Value Date CO2 30 10/12/2022 BUN 12 10/12/2022 CREATININE 0.65 10/12/2022 GLUCOSE 78 10/12/2022 CALCIUM 9.7 10/12/2022 PROT 7.0 10/12/2022 BILITOT 0.6 10/12/2022 ALKPHOS 87 10/12/2022 AST 21 10/12/2022 ALT 20 10/12/2022 AGRATIO 1.7 10/12/2022 GLOB 2.6 10/12/2022 Lab Results Component Value Date TSH 4.00 10/12/2022 No results found for: FOLATE Lab Results Component Value Date [id number] 10/12/2022 No results found for: RPR Imaging: no new neuroimaging obtained Testing: I reviewed the Carmine CognitiveAssessment from the initial assessment with the patient and family. Total score was 30 out of 30. I spent total time of 20 minutes face to face with the patient and/or family discussing the diagnosis and importance of compliance with the treatment plan as well as documenting on the day of the visit. In addition, that total time includes the following: -Reviewing previous notes, -Reviewing labs, -Reviewing previous cognitive tests, -Ordering prescription medications, tests and procedures, -Communicating results to the patient/family/caregiver, -Counseling/educating the patient/family/caregiver, and -Documenting clinical information in the patients electronic record * HAYDER Vargas - 11/16/2022 10:45 AM EDT Interval history since last appointment: Any visits to primary care provider? No Any visits to the emergency department/hospital? No Any medication changes? No Any falls? No Family present: patient, spouseBhavna Goetz Educational Materials reviewed/provided at visit: Memory/Cognitive Ability 10 Tips to Keeping Independent Memory Tips (mild) 10 Ways to Love Your Brain Exercise/Activities Exercise Age Page Caregiver Stress (for patient) Coping Techniques for Caregiver Stress Self Care for Caregivers Diet Healthy Nutrition for Older Adults - [facility] Injury Prevention/Home Safety [facility] Home Safety Checklist Medications Medication Safety/Dispensers Behavioral Health Support Generalized Anxiety Disorder Sleep Getting a Good Night's Sleep ([facility]) Sleep Hygiene Driving Driving And Older Adults - [facility] Aide and Attendance information Lifeline (for spouse) documented in this [facility]09-27-2023 Instructions* Patient Instructions* Lizz Whitfield MD - 11/16/2022 10:45 AM EDT Reviewed that memory loss you're experiencing is not due to dementia. I feel uncontrolled anxiety is a big contributor. Would highly recommend you see both a psychologist and psychiatrist to work on anxiety. Continue on the Vitamin D for the rest of the bottle, then get your Vitamin D level re-checked so we can figure out the next dose. documented in this [facility]09-19-2023 History of Present illness Narrative* Erin Greer APRN.KUNAL - 11/08/2022 11:00 AM EDT Reason for Consultation: DM Type 1 Referring Physician: SELF HISTORY OF PRESENT ILLNESS Ms. Villanueva is a 67 year old female presenting here today for a follow up of DM Type 1. As I recall,she was initially diagnosed with diabetes 1974. Patient of Dr. Rodriguez; 01/21/23 A1C today is 9.1 History of diabetes,peripheral neuropathy hypertension, hyperlipidemia, retinopathy, proteinuria and osteopenia She had conduction studies done in December 2020 per neurology showing + peripheral neuropathy. Feels feet are bothering her more and has swelling in lower legs Current diabetes regimen is as follows: Lantus 11 units HS Humalog carb ratio 1:10 and correction 1:50 she is checking her blood glucose 4 times daily. she does not bring a log book today for review. LDE Blood Sugar Frequency: no meter or log book FBS 100 or lower Daytime: unable to report specific readings Hypoglycemia frequency: occasionally Hypoglycemia awareness: Yes Regarding symptoms of hypoglycemia, she is not experiencing any symptoms such as polyuria, polydipsia, nocturia or rapid weight loss or blurry vision, Overall, the patient has no acute complaints at this time. Osteopenia: Hx of fosamax use for >5 years but has stopped taking it. Last DXA: Feb 22, 2022 HLD: Taking atorvastatin HTN: DAWSON--lisinopril. PAST MEDICAL HISTORY Diagnosis Date Background diabetic retinopathy 07/28/2014 Breast cancer (HCC) 2005 Right lumpectomy Hypertension Microalbuminuria Mixed hyperlipidemia Osteopenia Type 1 diabetes mellitus (HCC) 1974 PAST SURGICAL HISTORY Procedure Laterality Date COLONOSCOPY FLX DX W/COLLJ SPEC WHEN PFRMD 04/18/2016 Colonoscopy PAST SURGICAL HISTORY OF 2005 R lumpectectomy FAMILY HISTORY Problem Relation Age of Onset Diabetes Maternal Grandmother Thyroid Sister Social History Tobacco Use Smoking status: Never Smokeless tobacco: Never Substance Use Topics Alcohol use: Yes Comment: Couple drinks a day Drug use: No Allergies As of Date: 11/08/2022 (No Known Allergies) Fully Assessed 11/08/2022 Current Outpatient Medications Medication Sig Dispense Refill insulin glargine (LANTUS SOLOSTAR U-100 INSULIN) 100 unit/mL (3 mL) Inject 11 Units subcutaneously daily at bedtime. 15 mL 3 insulin lispro (HUMALOG KWIKPEN INSULIN) 100 unit/mL Inject subcutaneously 10 units three times daily at meals. 30 mL 3 blood sugar diagnostic (FREESTYLE LITE STRIPS) test strip TEST BLOOD SUGARS 6 TIMES DAILY; E 10.29,IDDM, 600 Strip 3 insulin needles, DISPOSABLE, (SURE COMFORT PEN NEEDLE) 31 gauge x 5/16 USE 4 PEN NEEDLES DAILY FORINSULIN PEN USE 400 Each 3 atorvastatin (LIPITOR) 10 mg tablet Take 1 tablet by mouth once daily. 90 tablet 3 FLUOXETINE HCL 20 mg tablet take 1 tablet by mouth once daily 90 tablet 3 lisinopril (ZESTRIL, PRINIVIL) 40 mg tablet Take 1 tablet by mouth once daily. 90 tablet 3 Blood-Glucose Meter (FREESTYLE LITE METER) monitoring kit Use to glucose as directed. 1 Each 3 No current facility-administered medications for this visit. REVIEW OF SYSTEMS Review of Systems Respiratory: Negative for difficulty breathing. Cardiovascular: Positive for leg swelling. Negative for chest pain. Gastrointestinal: Negative for nausea, vomiting, diarrhea and constipation. PHYSICAL EXAMINATION BP 110/70 Pulse 67 Wt 54.9 kg (121 lb) SpO2 98% BMI 20.14 kg/m2 Physical Exam Constitutional: Appearance: Normal appearance. Cardiovascular: Rate and Rhythm: Normal rate and regular rhythm. Pulses: Dorsalis pedis pulses are 2+ on the right side and 2+ on the left side. Comments: Trace BLE edema Pulmonary: Effort: Pulmonary effort is normal. Breath sounds: Normal breath sounds. Skin: General: Skin is warm and dry. Neurological: Mental Status: She is alert and oriented to person, place, and time. Psychiatric: Mood and Affect: Mood normal. Behavior: Behavior normal. Feet:Shoes and socks removed, sensitive to 10 gm monofilament, calluses noted bilaterally, and nails notable for Deformed, Hypertrophic, or Yellowish DATA Creatinine Date Value Ref Range Status 02/22/2022 0.56 (L) 0.58 - 0.96 mg/dL Final Hemoglobin A1C (%) Date Value 10/01/2018 8.7 Hemoglobin A1C (POCT) (%) Date Value 01/21/2022 9.6 ) No components found for: URINEALBUMIN Cholesterol, Total (mg/dL) Date Value 02/22/2022 205 12/25/2020 212 HDL Cholesterol (mg/dL) Date Value 02/22/2022 125 12/25/2020 134 LDL Cholesterol (mg/dL) Date Value 02/22/2022 70 12/25/2020 68 Triglyceride (mg/dL) Date Value 02/22/2022 49 12/25/2020 51 IMPRESSION: Ms. 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 No BG readings to review today. She declines CGM Retinopathy monitored per ophthalmology/retinal specialist. Due to repeat Plan: HEMOGLOBIN A1C (POC), insulin lispro (HUMALOG KWIKPEN INSULIN) 100 unit/mL, insulin glargine (LANTUS SOLOSTAR U-100 INSULIN) 100 unit/mL (3 mL), blood sugar diagnostic (FREESTYLE LITE STRIPS) test strip, insulin needles, DISPOSABLE, (SURE COMFORT PEN NEEDLE) 31 gauge x 5/16, lisinopril (ZESTRIL) 40 mg tablet, CONSULT TO PODIATRY Continue current insulin doses Mail in BG readings in 2 wks --log sheets given Follow up in [address] Rodriguez. (E10.29, R80.9) 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) Comment: Glycemic control is above goal but trending down. No BG readings to review today. Urine protein is being monitored. Due to repeat early 2023. She is on an DAWSON Plan: HEMOGLOBIN A1C (POC), insulin lispro (HUMALOG KWIKPEN INSULIN) 100 unit/mL, insulin glargine (LANTUS SOLOSTAR U-100 INSULIN) 100 unit/mL (3 mL), blood sugar diagnostic (FREESTYLE LITE STRIPS) test strip, insulin needles, DISPOSABLE, (SURE COMFORT PEN NEEDLE) 31 gauge x 5/16, lisinopril (ZESTRIL) 40 mg tablet, CONSULT TO PODIATRY Continue current insulin doses Mail in BG readings in 2 wks --log sheets given Follow up in [address] Rodriguez. (M85.89) Osteopenia of multiple sites Comment/Plan: Hx of fosamax use; last dexa stable in 2022 (E78.00) Pure hypercholesterolemia Comment/Plan: atorvastatin (LIPITOR) 10 mg tablet Continue statin (I10) Primary hypertension Comment/Plan: lisinopril (ZESTRIL, PRINIVIL) 40 mg tablet Continue same Medical Decision Making: Level: 4 - Moderate Erin Greer, MSN, WHEEL FITTER, SHEAR SCRAPMAN-C, CDE Endocrinology [facility]/[address], [address] [place] [address] Fax: documented in this [facility]Prom[facility] Telephone encounter Note * Telephone Encounter - Lizz Whitfield MD - 10/13/2022 9:42 AM EDT See labs. Vitamin d level [address] [facility] [id number] Miscellaneous Notes* Telephone Encounter - Lizz Whitfield MD - 10/13/2022 9:42 AM EDT See labs. Vitamin d level 10 documented in this [facility]08-23-2023 History of Present illness Narrative* Lizz Whitfield MD - 10/12/2022 9:45 AM EDT Images from the original note were not included. [facility] [address] [facility] [address] Dept: [phone] Dept Loc: [phone] Visit type: [facility] Initial Assessment Visit Date: 10/12/2022 Reason for Visit: Memory Loss Assessment and Plan 1. Memory loss - CBC - Comprehensive metabolic panel - Folate - TSH - Vitamin B12 - we didn't notice any cognitive or functional decline during assessment today - will review that uncontrolled diabetes, anxiety and sleep impairment can contribute to her cognitive symptoms - have ordered labs to look for contributing causes 2. Anxiety - has significant anxiety symptoms- many that sound like OCD although appears she has not been diagnosed yet - will highly encourage her to follow up with psychologist and also get a psychiatrist for medication management - suspect this is highly impacting her function more than cognitive symptoms 3. Vitamin D deficiency - Vitamin D Deficiency Screening (Vit D 25) 4. Caregiver stress - Taker Away will provide info about the [facility] if it's ever needed - consider lifeline for spouse since she worries about him falling 5. Sleep disorder - suspect mood is impacting her sleep - again- will highly recommend psychologist/psychiatrist Follow up for Family Summary Conference. Subjective HPI: Franky Villanueva is a 67 y.o. female who presents to the [facility] for a comprehensive geriatric assessment. The patient is new to me. Self referred due to concerns about diabetes having an impact on her mental status. History obtained from caregiver(s): here with . Says she was referred by another doctor. He's not sure why. doesn't think she has any issues with her memory. Short term memory loss: Context- (give details of any yes answers) history of stroke- No, history of head trauma- No, history of seizures- No, history of toxin exposures- No, history of hospitalization or surgery that made memory worse- No History of COVID-19- No History of cancer? - Yes - breast- 2005 Hearing Loss? - No Hearing Aids? -no Associated signs and symptoms- delusions or hallucinations- No paranoia- No Trouble sleeping? Yes - she sleeps a lot- goes to bed very early- naps a lot REM-related sleep disorder- no Mood ok. Gets depressed. At least says she's depressed but he doesn't see it. No anxiety although she frets over . No falls. History obtained from patient: reports she's had emotional issues for a long time. Went to a healthcenter in [place] to see Dr. Kline at [facility]- psychologist. She had her come with medinause she didn't think she had a good memory. She typed up an After Visit Summary and mentioned amemory assessment. Didn't like that she was going to give her homework that was uncomfortable for her. Has never seen a psychiatrist. Examples of difficulties patient is experiencing: writing things down more. Gets frustrated if talking on the phone and gets interrupted and can't remember at all what they were talking about. When reading a book or watching TV, has a hard time concentrating or comprehension. Gets choices confused (in/out). Can't remember details of a trip- restaurants, movies, vacations. Dx with diabetes since 1974. Feels it's affected her cognition. Not burning things. 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 Washes her hands a lot. Washes them because she feelsdirty. Severity (as seen by the provider based on caregiver history): mild, Duration- symptoms started long time- nothing new, getting frustrated more, Timing- not really progressive but more frustrating, intermittently during the day, no difference whether morning or night, cognitive changes are stable day to day, Hearing Screen: HHIE-S: 0 Mood- admits to depression. Has been on Prozac for years. Not sure if it works but she's felt worseif it's been stopped. Admits to anxiety- it's worse than the depression. has several healthissues including Parkinsons x 13 years and Crohns. Doesn't feel her mood is affecting her sleep. Wakes up during night use bathroom. Started napping with COVID bc she was staying inside so much. Hasn't bounced back. Has been avoiding driving. Says she doesn't like to be touched. Mentioned this during BP Reviewed progress notes completed by BROCK DANIELS)and social work. No Known Allergies Current Outpatient Medications Medication Sig Dispense Refill Blood Glucose Monitoring Suppl (FreeStyle Lite) device Inject 1 each under the skin 3 times daily. Use as instructed E11.9 1 each 0 FLUoxetine (PROzac) 20 MG tablet Take 1 tablet (20 mg) by mouth daily. 90 tablet 1 FREESTYLE LITE test strip 1 each by Other route 3 times daily. Use as instructed E11.9 200 each 1 glucose blood (FREESTYLE LITE) test strip TEST BLOOD SUGARS 6 TIMES DAILY; E 10.29, IDDM, insulin glargine (Lantus SoloStar) 100 UNIT/ML pen Inject 11 Units under the skin. insulin lispro (HumaLOG) 100 UNIT/ML injection Inject subcutaneously 10 units three times daily at meals. Sure Comfort Pen [place] 31G X 8 MM misc atorvastatin (Lipitor) 10 MG tablet Take 1 tablet (10 mg) by mouth daily for 90 doses. 90 tablet 1 lisinopril 40 MG tablet Take 1 tablet (40 mg) by mouth daily for 90 doses. 90 tablet 1 No current facility-administered medications for this visit. Past Medical History: Diagnosis Date Breast cancer screening by mammogram 06/2022 Essential hypertension 2009 H/O colonoscopy 09/2021 Dr. Олег boone ds, due 2031 History of herpes genitalis History of right breast cancer 2004 s/p lumpectomy Type 1 diabetes mellitus (HCC) [address] [facility] Social History Tobacco Use Smoking status: Never Smokeless tobacco: Never Substance Use Topics Alcohol use: Yes Past Surgical History: Procedure Laterality Date BREAST LUMPECTOMY Right 2004 [place] Breast COLONOSCOPY 09/2021 Dr. Олег boone ds- due 2031 COLONOSCOPY 2007 ESOPHAGOGASTRODUODENOSCOPY 09/2021 Esophageal candidiasis Family History Problem Relation Name Age of Onset Other Mother in 90s Coronary artery disease Father acute DC, at age 94 Parkinsonism Brother 75 Breast cancer Mother's Sister Family Status Relation Name Status Mother Father Sister Alive Brother Alive Mat Aunt (Not Specified) Objective Vitals: 10/12/22 1043 BP: 110/65 BP repeated with manual cuff Wt Readings from Last 3 Encounters: 07/04/22 122 lb (55.3 kg) 03/29/22 122 lb (55.3 kg) 07/13/21 119 lb (54 kg) Physical Exam Vitals reviewed. Constitutional: Appearance: Normal appearance. HENT: Head: Normocephalic and atraumatic. Right Ear: External ear normal. Left Ear: External ear normal. Mouth/Throat: Mouth: Mucous membranes are moist. Pharynx: Oropharynx is clear. Eyes: Extraocular Movements: Extraocular movements intact. Conjunctiva/sclera: Conjunctivae normal. Pupils: Pupils are equal, round, and reactive to light. Cardiovascular: Rate and Rhythm: Normal rate and regular rhythm. Pulmonary: Effort: Pulmonary effort is normal. Breath sounds: Normal breath sounds. Abdominal: General: Abdomen is flat. Bowel sounds are normal. Palpations: Abdomen is soft. Tenderness: There is no abdominal tenderness. Musculoskeletal: Right lower leg: No edema. Left lower leg: No edema. Skin: Comments: Skin on hands and care home up to elbow- kimberlyn (red/purple) color Neurological: Mental Status: She is alert. Cranial Nerves: No cranial nerve deficit. Motor: No weakness. Psychiatric: Mood and Affect: Mood normal. Behavior: Behavior normal. Data Reviewed and Summarized Old records reviewed and summarized here: labs- 03/14 CMP, lipids and no neuroimaging available Testing: The following tests were performed at today's visit and scanned in to the chart: MoCA score: 30, MIS score: 15 Clock drawing score: 5 PHQ-9 score: 2 JENN score: 14 I independently reviewed the [facility] Cognitive Assessment from 10/12/2022. Test scanned in to the chart. I spent total time of 55 minutes face to face with the patient and/or family discussing the diagnosis and importance of compliance with the treatment plan as well as documenting on the day of the visit. In addition, that total time includes the following: -Reviewing previous notes, -Reviewing labs, -Obtaining and/or reviewing separately obtained history, -Ordering prescription medications, tests and procedures, -Documenting clinical information in thepatients electronic record, and -Performing a medically appropriate exam and/or evaluation * Meghann Rogel MA - 10/12/2022 9:45 AM EDT Review of Systems Constitutional: Positive for fatigue. Negative for appetite change, fever and unexpected weight change. HENT: Negative for dental problem, hearing loss and trouble swallowing. Eyes: Negative for visual disturbance. Respiratory: Negative for cough and shortness of breath. Cardiovascular: Negative for leg swelling. Gastrointestinal: Negative for constipation and diarrhea. Genitourinary: Negative for difficulty urinating and dysuria. Musculoskeletal: Negative for arthralgias, back pain and gait problem. Neurological: Negative for tremors, speech difficulty and weakness. Psychiatric/Behavioral: Positive for agitation, confusion and dysphoric mood. Negative for hallucinations and sleep disturbance. The patient is nervous/anxious. 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 Activities: watches tv, talks on phone with friend daily, gets together with other friends Exercise: none Finances: not reviewed Healthcare Power of Optometrist: Yes: spouse Financial Power of Optometrist: Yes: spouse Living Will: Yes Guardian: No Code Status: Full Code Primary Caregiver: patient is independent Current care plan/supervision: patient is independent Community resources: None Caregiver stressors: n/a, patient is feeling some caregiver stress due to caring for Goals for care: evaluate memory As a Caregiver, What Matters Most to You: n/a >>10/12/22 not noticing any memory issues or functional decline. Functional Status (I: Independent, A: Assisted, D: Dependent) ADLs I A D Notes Bathing [x] [] [] No issues with personal care Dressing [x] [] [] Toileting [x] [] [] Transfers [x] [] [] Feeding [x] [] [] Ambulation [x] [] [] Assistive devices: None IADLs I A D Telephone [x] [] [] Has landline and cell phone, uses mostly landline, can call and answer, sets own appointments, not forgetting appointments Transportation [x] [] [] Driving safety concerns: still drives, doesn't like to drive, only drives with one hand, has some OCD tendencies when driving, would prefer to drive most of the time Shopping [x] [] [] Patient shops, goes very frequently instead of buying a whole week's worth of groceries Meal prep [x] [] [] Patient still cooks, no issues Housework [x] [] [] Patient cleans, no issues Medications [x] [] [] Manages own medications, no one monitors, thinks she is doing fine Finances [] [x] [] pays bills (always has), can carry hills/cards appropriately Educational materials will be provided at next visit: Memory/Cognitive Ability 10 Tips to Keeping Independent Memory Tips (mild) 10 Ways to Love Your Brain Exercise/Activities Exercise Age Page Caregiver Stress (for patient) Coping Techniques for Caregiver Stress Self Care for Caregivers Diet Healthy Nutrition for Older Adults - [facility] Injury Prevention/Home Safety [facility] Home Safety Checklist Medications Medication Safety/Dispensers Behavioral Health Support Generalized Anxiety Disorder Sleep Getting a Good Night's Sleep ([facility]) Sleep Hygiene Driving Driving And Older Adults - [facility] Aide and Attendance information Lifeline (for spouse) documented in this encounterSOhio State University Wexner Medical [id number] Telephone encounter Note* Telephone Encounter - Iliana Morgan - 09/20/2022 3:54 PM EDT Scheduled 10/12. [facility] [id number] Miscellaneous Notes* Telephone Encounter - Iliana Morgan - 09/20/2022 3:54 PM EDT Scheduled 10/12. * Telephone Encounter - Mary Capps - 09/15/2022 9:33 AM EDT Name of caller: Franky Contact phone number: [phone] Relationship to Patient: patient Provider: Dr Whitfield Practice: [facility] Chief Complaint/Reason for Call: pt is asking for a new patient appointment. Pt has had Type 1 Diabetes since college (1974 or so) and is wondering if that has any impact on her mental status. Please advise, thank you. Best time of day caller can be reached: AM Patient advised that office/PCP has 24-48 business hours to return their call: Yes documented in this encounterSOhio State University Wexner Medical CenterGakwve01-52-2582 Telephone encounter Note* Telephone Encounter - Mary Capps - 09/15/2022 9:33 AM EDT Name of caller: Franky Contact phone number: [phone] Relationship to Patient: patient Provider: Dr Whitfield Practice: [facility] Chief Complaint/Reason for Call: pt is asking for a new patient appointment. Pt has had Type 1 Diabetes since college (1974 or so) and is wondering if that has any impact on her mental status. Please advise, thank you. Best time of day caller can be reached: AM Patient advised that office/PCP has 24-48 business hours to return their call: Yes [facility] [id number] History of Present illness Narrative* Norberto Gómez DO - 07/04/2022 1:30 PM EDT Images from the original note were not included. [facility] [address] [address] Dept: [phone] Dept Chief Complaint: Franky Villanueva is an 67 y.o. female here for an annual wellness visit. Assessment/Plan : Problem List Items Addressed This Visit Nervous Diabetic 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) Circulatory Primary hypertension Infectious/Inflammatory Dry skin dermatitis Other Encounter for annual wellness visit (AWV) in Medicare patient - Primary Hypercholesterolemia History of right breast cancer I have reviewed and reconciled the medication list with the patient today. Current Outpatient Medications Medication Sig Dispense Refill Blood Glucose Monitoring Suppl (FreeStyle Lite) device Inject 1 each under the skin 3 times daily. Use as instructed E11.9 1 each 0 FREESTYLE LITE test strip 1 each by Other route 3 times daily. Use as instructed E11.9 200 each 1 glucose blood (FREESTYLE LITE) test strip TEST BLOOD SUGARS 6 TIMES DAILY; E 10.29, IDDM, insulin glargine (Lantus SoloStar) 100 UNIT/ML pen Inject 11 Units under the skin. insulin lispro (HumaLOG) 100 UNIT/ML injection Inject subcutaneously 10 units three times daily at meals. Sure Comfort Pen [place] 31G X 8 MM misc atorvastatin (Lipitor) 10 MG tablet Take 1 tablet (10 mg) by mouth daily for 90 doses. 90 tablet 1 FLUoxetine (PROzac) 20 MG tablet Take 1 tablet (20 mg) by mouth daily. 90 tablet 1 lisinopril 40 MG tablet Take 1 tablet (40 mg) by mouth daily for 90 doses. 90 tablet 1 No current facility-administered medications for this visit. Tobacco Problems Med Hx Surg Hx Fam Hx The following health maintenance schedule was reviewed with the patient and provided in printed form in the after visit summary: Health Maintenance Topic Date Due TSH Level Never done Hepatitis B Vaccines (1 of 3 - 3-dose series) Never done Lipid Panel Never done Medicare Annual Wellness (AWV) Never done Vitamin B-12 Never done Diabetes: Celiac Disease Screening Never done Diabetes: Foot Exam Never done Diabetes: Retinopathy Screening Never done Diabetes: Dental Exam Never done Hepatitis C Screening Never done DTaP/Tdap/Td Vaccines (1 - Tdap) Never done Diabetes: Hemoglobin A1C 07/22/2020 COVID-19 Vaccine (4 - Booster for Pfizer series) 03/09/2021 Diabetes: Urine Protein Screening 02/22/2023 Depression Screening 07/05/2023 Colorectal Cancer Screening 10/21/2031 Influenza Vaccine Completed Pneumococcal Vaccine: 65+ Years Completed Zoster Vaccines Completed Bone Density Scan Completed HIB Vaccines Aged Out IPV Vaccines Aged Out Hepatitis A Vaccines Aged Out Meningococcal Vaccine Aged Out Rotavirus Vaccines Aged Out HPV Vaccines Aged Out List of current healthcare providers: Patient Care Team: Norberto Gómez DO as PCP - General (Family Medicine) No orders of the defined types were placed in this encounter. Subjective : Annual wellness visit for uncontrolled type I diabetic with history of hyperlipidemia and hypertension. Sees endocrinology routinely. Not due for checkup in July. Last A1c is over 8 and 9. Complains of dry cracked skin bilaterally for many months due to repetitive handwashing. No change in mild retinopathy. Rarely ill. Not checking glucose levels routinely. Review of Systems weight is stable. No recent earache sore throat or cough. No chest pain or palpitations. No PND orthopnea claudication or edema. Eating and voiding well. No heartburn. No bowel changes. No melena or blood. Recent mammogram normal. History of breast cancer 18 years ago. Prozac has been somewhat helpful for generalized depression and was began years ago around her breast cancer surgery. Physical Exam The physical exam is generally normal. Patient appears well, alert and oriented x 3, pleasant, cooperative. Vitals are as noted. No carotid bruits. Neck supple, no abnormal adenopathy, thyroid lesions or masses. Ears, nose and throat are normal without acute findings. Lungs are clear to auscultation. Heart is regular, without murmurs, gallops or ectopy. Abdomen is soft, non tender, without masses, hepatosplenomegaly, or bruits. Normal BS evident. Extremities are pink with dry skinareas., But no active ulcers. Fingers and feet are somewhat cool. However radial and dorsalis pedispulses and posterior tibial pulses are adequate. Capillary refill slow but evident. No ulcers of the plantar aspect of both feet. There is no motor or sensory loss noted. Screening neurological exam is normal without focal deficits. She defers breast exam today. Recent mammogram reviewed Health Risk Assessment: General In general, how would you say your health is?: Very good In the past 7 days, have you experienced any of the following: New or Increased Pain, New or Increased Fatigue, Loneliness, Social Isolation, Stress or Anger?: No Do you get the social and emotional suppport you need?: Yes Interventions: Defers additional intervention Health Habits / Nutrition On average, how many days per week do you engage in moderate to strenous exercise (like a brisk walk)?: (!) 0 days On average, how man minutes do you engage in exercise at this level?: (!) 0 min Have you lost any weight without trying in the past 3 months? : No Have you seen the dentist within the past year?: Yes Interventions: Exams up-to-date Hearing / Vision Do you or your family notice any trouble with your hearing that hasn't been managed with hearing aids?: No Do you have difficulty driving, watching TV, or doing any of your daily activities because of your eyesight?: No Have you had an eye exam within the past year?: Yes No results found. Interventions: Vision concerns: Exams up-to-date Safety Do you have a working smoke detector?: Yes Do you have any tripping hazards - loose or unsecured carpets or rugs?: No Do you have any tripping hazards - clutter in doorways, halls, or stairs?: No Do you have either shower bars, grab bars, non-slip mats or non-slip surfaces in your shower or bathtub? : Yes Do all your stairways have a railing or banister? : Yes Do you fasten your seatbelt when you are in a car?: Yes Interventions: Patient declines any further evaluation / treatment for this issue ADL In the past 7 days, did you need help from others to perform any of the following everyday activities: Eating, dressing, grooming,bathing, toileting, or walking / balance? : No In the past 7 days, did you need help from others to take care of any of the following: laundry, housekeeping, banking / finances,shopping, telephone use, food preparation, transportation, or taking medications? : No Interventions: Patient declines any further evaluation / treatment for this issue Living Will Do you have a living will?: Yes Interventions: Patient declines ACP discussion / assistance Cognitive: Cognitive Screening: Mini-Cog Clock Drawing Test (CDT): 2 Words Recalled: 3 (used words red dog cat) Total Score: 5 Total Score Interpretation: Normal Mini-Cog Interventions: Patient declines any further evaluation / treatment for cognitive impairment Fall Risk: Fall Risk One or more falls in the last year:: No Advised to use a cane or walker to get around safely:: No Feels unsteady when walking:: Yes (a little wobbly at times) Steadies self on furniture while walking at home:: No Worried about falling:: No Interventions: Patient declines any further evaluation / treatment for this issue Depression Screening: Over the past 2 weeks, how often have you been bothered by any of the following problems? Little interest or pleasure in doing things: Not at all Feeling down, depressed, or hopeless: Not at all Patient Health Questionnaire-2 Score: 0 Interventions: Patient declines any further evaluation / treatment for this issue Patient declines any further evaluation / treatment for this issue Tobacco Use: Social History Tobacco Use Smoking Status Never Smokeless Tobacco Never Interventions: Not applicable Alcohol Use: Interventions: Not applicable Drug Use: Interventions: Not applicable Objective : BP 134/72 Pulse 76 Temp 36.5 C (97.7 F) (Temporal) Ht 5' 5 (1.651 m) Wt 122 lb (55.3 kg) SpO2 98% BMI 20.30 kg/m No results found. 1. History of right breast cancer Stable, mammogram normal check yearly 2. Diabetic 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) Uncontrolled, urged better insulin management per endocrinology. 3. Dry skin dermatitis Continue to avoid excessive handwashing and apply tough skin or similar emollient. 4. Encounter for annual wellness visit (AWV) in Medicare patient Stable, continue vitamin D exercise 150 minutes/week. Calcium, women's multivitamin. 5. Primary hypertension Stable, continue lisinopril 6. Hypercholesterolemia Stable, continue Lipitor Length of service 40 minutes reviewing chart and updating records. Patient interview exam and discussion of diagnosis and work-up options. Consider changing to Luvox for perhaps OCD coverage. Needs better diabetic control. We will check breast exam next visit. documented in this [facility]05-02-2023 Miscellaneous Notes* Letter - Mammography Coordinator - 06/21/2022 12:25 PM EDT [facility] [address] [place] [address] June 21, 2022 PID: [id number] Franky Sánchez [address] [place] [address] Dear Ms. Villanueva, We are pleased to inform you that the results of your recent breast imaging exam on 06/20/2022 are normal. Early detection of cancer is very important. We also understand recommendations regarding breast cancer screening are controversial. Please discuss with your primary care provider which strategy is best for you and whether a mammogram is right for you. Your imaging studies and report will be kept on file at [facility] as part of your permanent medical record and are available for your continuing care. Thank you for allowing us to help in meeting your health care needs. Sincerely, Dr. Felipe Interpreting [facility] (Normal over 40) documented in this encounterPromedica [facility] Hospital03-13-2023 Telephone encounter Note * Telephone Encounter - SONA Mcdonald NP - 05/02/2022 11:56 AM EDT Rx sent The patient's medical record is available to the pa and a thorough review of the medical chart yielded: -The establishment of the patient s identity and location and informed consent; -A medical evaluation has been completed and conducted within 24 months by the [facility] healthcare provider for whom I am covering; -The diagnosis and treatment plan have been confirmed and refilling this medication is necessary and appropriate in my professional judgment; and -An appropriate medical evaluation was completed [id number] Miscellaneous Notes* Telephone Encounter - SONA Mcdonald NP - 05/02/2022 11:56 AM EDT Rx sent The patient's medical record is available to the pa and a thorough review of the medical chart yielded: -The establishment of the patient s identity and location and informed consent; -A medical evaluation has been completed and conducted within 24 months by the [facility] healthcare provider for whom I am covering; -The diagnosis and treatment plan have been confirmed and refilling this medication is necessary and appropriate in my professional judgment; and -An appropriate medical evaluation was completed * Telephone Encounter - Stefanie Valera RN - 05/02/2022 11:30 AM EDT Rx loaded Last ov 03/29/2022 No next ov at this time * Telephone Encounter - Nida Sy - 05/02/2022 11:10 AM EDT Name of caller: Franky Contact phone number: [phone] Relationship to Patient: patient Provider: Dr. Gómez Practice: [facility] [place] Chief Complaint/Reason for Call: Patient calling in stating that she has diabetes and that her blood sugar readings have been elevated. She states that she know it could be due to her, but was wondering if may need a new machine. She is now using the freestyle lite machine and is requesting that the doctor write a script for a new machine. She stated that she has had this machine for over 5 years. Please Advise. Best time of day caller can be reached: ANY Patient advised that office/PCP has 24-48 business hours to return their call: Yes documented in this encounterSOhio State University [facility] [id number] Telephone encounter Note* Telephone Encounter - Stefanie Valera RN - 05/02/2022 11:30 AM EDT Rx loaded Last ov 03/29/2022 No next ov at this time [id number] Telephone encounter Note* Telephone Encounter - Nida Sy - 05/02/2022 11:10 AM EDT Name of caller: Franky Contact phone number: [phone] Relationship to Patient: patient Provider: Dr. Gómez Practice: [facility] Chief Complaint/Reason for Call: Patient calling in stating that she has diabetes and that her blood sugar readings have been elevated. She states that she know it could be due to her, but was wondering if may need a new machine. She is now using the freestyle lite machine and is requesting that the doctor write a script for a new machine. She stated that she has had this machine for over 5 years. Please Advise. Best time of day caller can be reached: ANY Patient advised that office/PCP has 24-48 business hours to return their call: Yes [facility] [id number] Telephone encounter Note* Telephone Encounter - Arianna Carty - 04/14/2022 9:08 AM EST No auth needed. [facility]ax[facility] to [facility]-Scheduling for pt to be sched - [facility] sched[facility] pt [id number] Miscellaneous Notes* Telephone Encounter - Arianna Carty - 04/14/2022 9:08 AM EST No auth needed. [facility]axed [facility] to [facility]-Scheduling for pt to be sched - [facility] will sched/advise pt * Telephone Encounter - Gaurav Nunez DO - 04/13/2022 3:37 PM EST Patient will look into the cost of the Prozac. The Prozac 20 mg tablets more expensive than the capsule. Apparently the capsules are less expensive than the tablets. Patient will contact both [facility] and inquire about cost of the capsules and tablets. Also patient is due for a mammogram. I told her that the order has been placed. * Telephone Encounter - Sayda Talavera MA - 04/13/2022 12:44 PM EST Please assist * Telephone Encounter - Stefan Villeda - 04/13/2022 11:21 AM EST Name of caller: franky Contact phone number: [phone] Relationship to Patient: patient Provider: supriya Practice: [facility] Chief Complaint/Reason for Call: pt called in to ask if it would be possible to have the [id number] called in as capsule form due to the 10mg capsules cost 12$ while the tabs costing 68$. If that wasn't possible she wanted to know if multiple 10mg could be called in due to the helm being drastically different. Please advise pt with what the plan would be Best time of day caller can be reached: any Patient advised that office/PCP has 24-48 business hours to return their call: No documented in this encounterSOhio State University We[facility]ner Medical [id number] Telephone encounter Note* Telephone Encounter - Arianna Carty - 04/14/2022 9:07 AM EST No auth needed. [facility] to [facility]-Scheduling for pt to be sched - [facility] sched[facility] [id number] Miscellaneous Notes* Telephone Encounter - Arianna Carty - 04/14/2022 9:07 AM EST No auth needed. [facility]axed orders to [facility]-Scheduling for pt to be sched - [facility] will sched/advise pt * Telephone Encounter - Arianna Carty - 04/01/2022 8:17 AM EST No auth needed. [facility]axed orders to [facility]-Scheduling for pt to be sched - [facility] will sched/advise pt * Telephone Encounter - Gaurav Nunez DO - 03/31/2022 9:52 PM EST This patient had a well woman examination done last May. Looks like she did not have a mammogram done. I have placed the order. documented in this encounterSOhio State University Wex[facility] Medical [id number] Telephone encounter Note* Telephone Encounter - Gaurav Nunez DO - 04/13/2022 3:37 PM EST Patient will look into the cost of the Prozac. The Prozac 20 mg tablets more expensive than the capsule. Apparently the capsules are less expensive than the tablets. Patient will contact both [employer] and [facility] and inquire about cost of the capsules and tablets. Also patient is due for a mammogram. I told her that the order has been placed. [facility] [id number] Miscellaneous Notes* Telephone Encounter - Gaurav Nunez DO - 04/13/2022 3:37 PM EST Patient will look into the cost of the Prozac. The Prozac 20 mg tablets more expensive than the capsule. Apparently the capsules are less expensive than the tablets. Patient will contact both [facility] and [facility] and inquire about cost of the capsules and tablets. Also patient is due for a mammogram. I told her that the order has been placed. * Telephone Encounter - Sayda Talavera MA - 04/13/2022 12:44 PM EST Please assist * Telephone Encounter - Stefan Villeda - 04/13/2022 11:21 AM EST Name of caller: franky Contact phone number: [phone] Relationship to Patient: patient Provider: supriya Practice: [facility] Chief Complaint/Reason for Call: pt called in to ask if it would be possible to have the [id number] called in as capsule form due to the 10mg capsules cost 12$ while the tabs costing 68$. If that wasn't possible she wanted to know if multiple 10mg could be called in due to the helm being drastically different. Please advise pt with what the plan would be Best time of day caller can be reached: any Patient advised that office/PCP has 24-48 business hours to return their call: No documented in this [facility]02-22-2023 Telephone encounter Note* Telephone Encounter - Sayda Talavera MA - 04/13/2022 12:44 PM EST Please assist [facility] [id number] Telephone encounter Note* Telephone Encounter - Stefan Villeda - 04/13/2022 11:21 AM EST Name of caller: franky Contact phone number: [phone] Relationship to Patient: patient Provider: supriya Practice: [facility] Chief Complaint/Reason for Call: pt called in to ask if it would be possible to have the [id number] called in as capsule form due to the 10mg capsules cost 12$ while the tabs costing 68$. If that wasn't possible she wanted to know if multiple 10mg could be called in due to the helm being drastically different. Please advise pt with what the plan would be Best time of day caller can be reached: any Patient advised that office/PCP has 24-48 business hours to return their call: No [facility] [id number] Telephone encounter Note* Telephone Encounter - Arianna Carty - 04/01/2022 8:17 AM EST No auth needed. [facility]ax[facility] to [facility]-Scheduling for pt to be sched - [facility] sched[facility] pt [facility] [id number] Miscellaneous Notes* Telephone Encounter - Arianna Carty - 04/01/2022 8:17 AM EST No auth needed. [facility]axed [facility] to [facility]-Scheduling for pt to be sched - [facility] will sched/advise pt * Telephone Encounter - Gaurav Nunez DO - 03/31/2022 9:52 PM EST This patient had a well woman examination done last May. Looks like she did not have a mammogram done. I have placed the order. documented in this [facility]02-09-2023 Telephone encounter Note* Telephone Encounter - Gaurav Nunez DO - 03/31/2022 9:52 PM EST This patient had a well woman examination done last May. Looks like she did not have a mammogram done. I have placed the order. [facility] [id number] History of Present illness Narrative* Gaurav Nunez DO - 03/29/2022 2:50 PM EST Subjective: Patient ID: Franky Villanueva is a 66 y.o. female. 66 old female with a history of anxiety, depression, diabetes and hypertension presents to the office for checkup. Patient sees an supervisor tree trimming who is prescribing majority of her medication. Review of Systems Patient currently is taking Prozac 20 mg daily for anxiety and depression. Fairly well controlled. Patient's main problem is with excessive washing of her hands. Washes her hands numerous times throughout each day. Has done this for several years. Patient is willing to increase the dose of Prozac and attempt to help this problem. Patient continues to see an supervisor tree trimming on a regular basis. This patient had her well woman examination done in May of last year. Does not appear that patient had a mammogram. Patient has had an EGD and colonoscopy. Objective: Physical Exam Neck: Thyroid: No thyromegaly. Vascular: No carotid bruit. Cardiovascular: Rate and Rhythm: Normal rate and regular rhythm. Heart sounds: No murmur heard. Pulmonary: Breath sounds: Normal breath sounds. Abdominal: Palpations: There is no mass. Tenderness: There is no abdominal tenderness. Musculoskeletal: Right lower leg: No edema. Left lower leg: No edema. Comments: Pulses present both feet Lymphadenopathy: Cervical: No cervical adenopathy. Skin: Findings: No rash. Comments: Diffuse redness, irritation and dryness distal forearms and hands. No open areas. Neurological: Mental Status: She is alert. BP 129/71 Pulse 65 Temp 36.5 C (97.7 F) (Temporal) Ht 5' 5 (1.651 m) Wt 122 lb (55.3 kg) SpO2 99% BMI 20.30 kg/m No Known Allergies Current Outpatient Medications on File Prior to Visit Medication Sig Dispense Refill atorvastatin (Lipitor) 10 MG tablet glucose blood (FREESTYLE LITE) test strip TEST BLOOD SUGARS 6 TIMES DAILY; E 10.29, IDDM, insulin glargine (Lantus SoloStar) 100 UNIT/ML pen Inject 11 Units under the skin. insulin lispro (HumaLOG) 100 UNIT/ML injection Inject subcutaneously 10 units three times daily at meals. lisinopril 40 MG tablet Sure Comfort Pen [place] 31G X 8 MM misc [DISCONTINUED] FLUoxetine (PROzac) 20 MG tablet Take 20 mg by mouth daily. No current facility-administered medications on file prior to visit. Patient Active Problem List Diagnosis Diabetic 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) History of breast cancer Vaginal stenosis Social History Tobacco Use Smoking status: Never Smokeless tobacco: Never Substance Use Topics Alcohol use: Yes Past Surgical History: Procedure Laterality Date BREAST LUMPECTOMY Right COLONOSCOPY 10/20/2021 diverticulosis.Repeat scope 10 years COLONOSCOPY 2006 ESOPHAGOGASTRODUODENOSCOPY 10/20/2021 esophageal plaques. Pobable theresa No family history on file. Assessment / Plan: Diagnosis Plan 1. JENN (generalized anxiety disorder) Stable. Continue Prozac. 2. Obsessive-compulsive behavior Increase Prozac to 30 mg daily. 3. Type 1 diabetes mellitus without complication (CMS/HCC) (HCC) This patient's diabetes is being managed by an supervisor tree trimming Patient will be due for a well woman examination this spring documented in this encounterSOhio State University Wexner Medical [id number] Miscellaneous Notes* Telephone Encounter - Natacha Westfall Ma - 02/24/2022 11:46 AM EST ilustrum message with alert if not read. CLOSED * Telephone Encounter - Michael Rodriguez MD - 02/24/2022 11:19 AM EST Call and tell that urine microalbumin/creatinine ratio was elevated, but stable. No new changes. Cholesterol levels were fine. Serum sodium level was low, however, needs to be repeated. Get done early AM (before 8 am), no need to fast. Orders in [facility]. Will call with results. documented in this encounterPromedica [facility] Hospital01-03-2023 History of Present illness Narrative* Jesus Burgos RT(R) - 02/22/2022 11:00 AM EST Radiology Service Progress Note PATIENT NAME: Franky Villanueva DATE OF SERVICE: February 22, 2022 TIME: 10:58 AM PATIENT IDENTITY VERIFICATION COMPLETED USING TWO (2) IDENTIFIERS: Name and Date of confirmedby patient verbally. FALL SCREENING: Has the patient had 2 falls in the last year or 1 fall with injury or currently using an Ambulatory Assistive Device (Walker, Cane, Wheelchair, Crutches, etc.)? No PATIENT GENDER DATA: Female. status: : No status: NO. PATIENT RELEVANT IMPLANT DATA REVIEWED: Not Applicable RADIOLOGY DEPARTMENT: Bone Density PERIPHERAL IV DATA: Not applicable SIGNED BY: RT Ankit(R) February 22, 2022 10:58 AM documented in this encounterPromedica Memorial Hospital12-02-2022 Instructions* Patient Instructions* Michael Rodriguez MD - 01/21/2022 10:40 AM EST A1C 9.6% Change insulin:carbohyrate ratio to 1:7 Get labs done at [facility] fasting. Will call with results. Schedule bone density test. OK to stop taking aspirin daily. See me again in 6 months. BONE MINERAL DENSITY PATIENT INSTRUCTIONS Bone mineral density testing measures the amount of calcium in certain parts of your bones. This information determines how strong your bones are. The test is used to detect osteoporosis, a disease in which the bone's mineral content and density are low, increasing a person's risk of fractures. Thelumbar spine (lower back) and the hip are the skeletal sites usually examined. For the test, remember that: 1. You cannot take this test if you are . 2. Eat a normal diet on the day of the test. 3. Take your medications as you normally would. 4. DO NOT take calcium supplements (such as Tums) for 24 hours before the test. 5. On the day of the test, leave valuables (jewelry or credit cards) at home. 6. The test should be performed prior to oral, rectal or IV contrast studies, or at least 7 days after any of these studies. For the test, you may be asked to wear a hospital gown. You will lie on your back, on a padded table, in a comfortable position. Generally, you can resume your usual activities immediately. documented in this encounterPromedica Memorial [facility] History of Present illness Narrative* Michael Rodriguez MD - 01/21/2022 10:21 AM EST Follow-up 66 year-old female, patient of Dr. Gaurav Nunez, with type 1 diabetes mellitus since 1974. She continues multiple daily insulin injections (MDII): Humalog KwikPen with Lantus SoloStar at bedtime. She continues to carbohydrate count (1:10), and use correction ratio of 1:50 for hyperglycemic excursions. Blood sugars remain labile. She is checking blood sugars, mostly before meals, 5x daily, using an AccuChek Alvina meter . She did not bring blood sugars in for review today. Medication list, insulin doses reviewed with the patient, reconciled. Stable background diabetic retinopathy on her last diabetic eye exam in 05/2021. Non-smoker, occasional alcohol use. NKDA. Usual adult height was 65.25. She stopped taking Fosamax weekly, had been on for over 5 years. No fractures. Had a flu shot this past (2021) fall. No recent hypoglycemia in the middle of the night. No interval height loss or fractures. Fasting readings are around 100 mg/dL. Not checking after meals as much. Has had COVID vaccination. Misses a pre-prandial insulin injection occasionally. Refuses CGMS. Current Outpatient Medications on File Prior to Visit Medication Sig atorvastatin (LIPITOR) 10 mg tablet Take 1 tablet by mouth once daily. FLUOXETINE HCL 20 mg tablet take 1 tablet by mouth once daily insulin glargine (LANTUS SOLOSTAR U-100 INSULIN) 100 unit/mL (3 mL) Inject 11 Units subcutaneously daily at bedtime. insulin lispro (HUMALOG KWIKPEN INSULIN) 100 unit/mL Inject subcutaneously 10 units three times daily at meals. lisinopril (ZESTRIL, PRINIVIL) 40 mg tablet Take 1 tablet by mouth once daily. blood sugar diagnostic (FREESTYLE LITE STRIPS) test strip TEST BLOOD SUGARS 6 TIMES DAILY; E 10.29,IDDM, insulin needles, DISPOSABLE, (SURE COMFORT PEN NEEDLE) 31 gauge x 5/16 USE 4 PEN NEEDLES DAILY FORINSULIN PEN USE aspirin, enteric coated (ASPIR-LOW) 81 mg EC tablet Take 1 tablet by mouth once daily. Blood-Glucose Meter (FREESTYLE LITE METER) monitoring kit Use to glucose as directed. Review of patient's allergies indicates: No Known Allergies Review of systems: Patient notes no weight changes, fever, fatigue, weakness, change in balance or sensation, visual problems, hearing changes, dizziness, trouble swallowing, nasal difficulties, shortness of breath, chest pain, change in exertional tolerance, foot or leg problems, skin lesions, abdominal pain, diarrhea, constipation, urinary problems, incontinence, back pain, joint pains, anxiety, depression, insomnia, menstrual difficulties, breast lesions/pain/mass. Remainder of review of systems was unremarkable. BP 182/66 Pulse 62 Resp 16 Ht 165.1 cm (5' 5) Wt 54.3 kg (119 lb 9.6 oz) SpO2 100% BMI19.90 kg/m Weight up 1 pound since 05/2021. General appearance: Well-appearing female, alert, in no acute distress, well- hydrated, well nourished. BP elevated. Repeat BP 142/70 Skin: Skin color, texture, turgor normal, no suspicious rashes or lesions Head: normocephalic, no masses, lesions, tenderness or abnormalities Eyes: Anicteric sclera. Pupils are equally round. Extraocular movements are intact. Ears: not examined Nose/Sinuses: Nares normal. No drainage or sinus tenderness. Oropharynx: Lips, mucosa, and tongue normal, teeth and gums not examined. Neck: Supple, no adenopathy; no visible thyroid enlargement. Lungs: Breathing unlabored. Heart: RRR. No ectopy Abdomen: deferred Musculoskeletal: Spine range of motion not tested. Muscular strength intact, No joint swelling, deformity, or tenderness Neuro: Gait normal. Sensation grossly intact. Feet:Shoes and socks removed, No deformities, ulcers, calluses, trace DP distal pulses, and intact sensation. A1C today via Afinion was 9.6%. DEXA bone densitometry in 2012 showed T-scores as follows: lumbar 0.0, hip -0.5, femoral neck 0.0. DEXA bone densitometry in 09/2019 showed T-scores as follows: lumbar -0.6, hip - 1.2, femoral neck -1.0. IMPRESSION: Type 1 diabetes mellitus - worse control. Encouraged her to check post-prandial glucose levels moreconsistently. Increased the insulin:carbohyrate ratio to 1:7. Check CMP, urine microalbumin/creatinine ratio. Osteopenia - stable historically, repeat DXA Hypertension - fair control. Check BP in the community, goal BP less than 130/80 mm Hg. Hyperlipidemia - check lipid panel on atorvastatin 10 mg daily PLAN: Change insulin:carbohyrate ratio to 1:7 Get fasting labs done - CMP, lipid panel, urine microalbumin/creatinine ratio Check bone density test Will call with results See us again in 6 months. Michael Rodriguez M.D. I spent a total of 30 minutes on the date of service which included preparing to see the patient, [id number] patient care, completing clinical documentation, performing a medically appropriate examination, counseling and educating the patient/family/caregiver and ordering medications, tests, or procedures. documented in this encounterPromed[facility]07-05-[facility]22 Miscellaneous Notes* Telephone Encounter - Tyesha Harvey LPN - 08/24/2021 9:00 AM EDT Requester: Pharmacy Last Visit in Endocrinology: Provider name: Erin Greer CNP , Date 05/25/2021 Next Scheduled Appt in Endo: 11/26/2021 Last Refill: 09/14/20 Number of Refills given: 3 Pending Prescriptions Disp Refills FLUOXETINE 20 MG TABLET 90 tablet 3 Sig: take 1 tablet by mouth once daily TERESA: Yes Please review and advise. Tyesha Harvey LPN documented in this encounterPromedica Memorial Hospital04-27-2022 Miscellaneous Notes* Telephone Encounter - Erin Greer APRN.CNP - 06/16/2021 3:01 PM EDT Message doesn't specify which local pharmacy. Was sent to [facility] in [place]. Thank you * Telephone Encounter - Lorene Blackwell RN - 06/16/2021 9:24 AM EDT Apparently the Rx sent on 05/25/2021 was cancelled out of the pharmacies system for some reason. Please re-send. * Telephone Encounter - Rebecca Alvarado - 06/14/2021 9:02 AM EDT Pharmacy verified in [facility] Patient has been identified by name and date of : Yes Patient aware RX will be sent to pharmacy. No need to notify patient. Please send to Local Pharmacy. Patient phones for refill(s): Pending Prescriptions Disp Refills ATORVASTATIN 10 MG TABLET 90 tablet 3 Sig: Take 1 tablet by mouth once daily. TERESA: No Date of last office visit : 05/25/2021 Date of next office visit : 11/26/2021 Last 2 Encounter Wt Readings: Date: Wt: 05/25/2021 53.9 kg (118 lb 12.8 oz) 09/14/2020 55.1 kg (121 lb 6.4 oz) Diabetes: Hemoglobin A1C (%) Date Value 10/01/2018 8.7 Hemoglobin A1C (POCT) (%) Date Value 05/25/2021 9.4 Please advise. Rebecca Alvarado documented in this encounterPromedica Memorial Hospital04-05-2022 History of Present illness Narrative* Erin Greer APRN.SODA CLERK - 05/25/2021 11:00 AM EDT Reason for Consultation: DM Type 1 Referring Physician: SELF HISTORY OF PRESENT ILLNESS Ms. Villanueva is a 66 year old female presenting here today for a follow up of DM Type 1. As I recall,she was initially diagnosed with diabetes [address]. Patient of Dr. Rodriguez; 09/14/20 She is new for me today. A1C today is 9.4. Up from 8.7 Being evaluated for carotid bruit. She had conduction studies done in December 2020 per neurology showing + peripheral neuropathy. History in addition to diabetes include: hypertension, hyperlipidemia, retinopathy, proteinuria andosteopenia Exacerbating factors include: none Current diabetes regimen is as follows: Lantus 11 units HS Humalog 10 units TID meals-- varies --breakfast 7 units; lunch 7 units, dinner --unable to give an amount *taking insulin after the meal on occasion. *if eating out she may wait until home to check glucose and take insulin. *admits she has not been eating diabetic diet. she is checking her blood glucose 4-5 times daily. she does not bring a log book today for review. LDE Blood Sugar Frequency: no meter or lob book today. BG 75 FBS 100 or little below HS: around 200 Hypoglycemia frequency: occasionally Hypoglycemia awareness: Yes Regarding symptoms of hypoglycemia, she is not experiencing any symptoms such as polyuria, polydipsia, nocturia or rapid weight loss or blurry vision, Overall, the patient has no acute complaints at this time. Osteopenia: Hx of fosamax use for >5 years but has stopped taking it. Last DXA: 2019 HLD: Taking atorvastatin HTN: DAWSON--lisinopril. PAST MEDICAL HISTORY Diagnosis Date Background diabetic retinopathy 07/28/2014 Breast cancer (HCC) 2004 Right lumpectomy Hypertension Microalbuminuria Mixed hyperlipidemia Osteopenia Type 1 diabetes mellitus (HCC) 1974 PAST SURGICAL HISTORY Procedure Laterality Date COLONOSCOPY FLX DX W/COLLJ SPEC WHEN PFRMD 04/18/2016 Colonoscopy PAST SURGICAL HISTORY OF 2005 R lumpectectomy FAMILY HISTORY Problem Relation Age of Onset Diabetes Maternal Grandmother Thyroid Sister Social History Tobacco Use Smoking status: Never Smoker Smokeless tobacco: Never Used Substance Use Topics Alcohol use: Yes Comment: Couple drinks a day Drug use: No Allergies As of Date: 05/25/2021 (No Known Allergies) Fully Assessed 05/25/2021 Current Outpatient Medications Medication Sig Dispense Refill insulin glargine (LANTUS SOLOSTAR U-100 INSULIN) 100 unit/mL (3 mL) Inject 11 Units subcutaneously daily at bedtime. 15 mL 3 insulin lispro (HUMALOG KWIKPEN INSULIN) 100 unit/mL Inject subcutaneously 10 units three times daily at meals. 30 mL 3 lisinopril (ZESTRIL, PRINIVIL) 40 mg tablet Take 1 tablet by mouth once daily. 90 tablet 3 atorvastatin (LIPITOR) 10 mg tablet Take 1 tablet by mouth once daily. 90 tablet 3 blood sugar diagnostic (FREESTYLE LITE STRIPS) test strip TEST BLOOD SUGARS 6 TIMES DAILY; E 10.29,IDDM, 600 Strip 3 insulin needles, DISPOSABLE, (SURE COMFORT PEN NEEDLE) 31 gauge x 5/16 USE 4 PEN NEEDLES DAILY FORINSULIN PEN USE 400 Each 3 aspirin, enteric coated (ASPIR-LOW) 81 mg EC tablet Take 1 tablet by mouth once daily. FLUoxetine HCl 20 mg tablet Take 1 tablet by mouth once daily. 90 tablet 3 Blood-Glucose Meter (FREESTYLE LITE METER) monitoring kit Use to glucose as directed. 1 Each 3 No current facility-administered medications for this visit. REVIEW OF SYSTEMS General: no fever and no chills Skin: no rashes, pruritis or dry skin Cardiac: denies chest pain, heart palpitations or orthopnea Pulmonary: denies wheezing, productive cough or exertional dyspnea PHYSICAL EXAMINATION BP 140/60 Pulse 64 Wt 53.9 kg (118 lb 12.8 oz) SpO2 99% BMI 19.77 kg/m2 Physical Exam Constitutional: Appearance: Normal appearance. Cardiovascular: Rate and Rhythm: Normal rate and regular rhythm. Pulmonary: Effort: Pulmonary effort is normal. Breath sounds: Normal breath sounds. Skin: General: Skin is warm and dry. Neurological: Mental Status: She is alert and oriented to person, place, and time. Psychiatric: Mood and Affect: Mood normal. Behavior: Behavior normal. DATA Creatinine Date Value Ref Range Status 10/12/2020 0.64 0.58 - 0.96 mg/dL Final Hemoglobin A1C (%) Date Value 10/01/2018 8.7 Hemoglobin A1C (POCT) (%) Date Value 05/25/2021 9.4 ) No components found for: URINEALBUMIN Cholesterol, Total (mg/dL) Date Value 12/25/2020 212 HDL Cholesterol (mg/dL) Date Value 12/25/2020 134 LDL Cholesterol (mg/dL) Date Value 12/25/2020 68 Triglyceride (mg/dL) Date Value 12/25/2020 51 IMPRESSION: Ms. 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 Recommend CGM as a medical necessity. She is on insulin 4x per day and requires close monitoring of BG levels for hypo and hyperglycemia and treatment decisions. She is undecided about CGM. Advised her to contact us if she wishes to move forward and she can see Darian to learn more about them if preferred. Plan: HEMOGLOBIN A1C (POC), insulin glargine (LANTUS SOLOSTAR U-100 INSULIN) 100 unit/mL (3 mL), insulin lispro (HUMALOG KWIKPEN INSULIN) 100 unit/mL, blood sugar diagnostic (FREESTYLE LITE STRIPS) test strip Take BG and insulin before eating. Continue the same lantus dose. Add one unit to humalog doses. Consider CGM. Follow up in 6 months. She declined sooner follow up (E10.29, R80.9) 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) Comment: glycemic control has worsened. Plan: See above (M85.89) Osteopenia of multiple sites Comment/Plan: DXA due 2021. Hx of fosamax use (E78.00) Pure hypercholesterolemia Comment/Plan: atorvastatin (LIPITOR) 10 mg tablet Continue statin (I10) Primary hypertension Comment/Plan: lisinopril (ZESTRIL, PRINIVIL) 40 mg tablet Lower with repeat. Continue same Medical Decision Making: Problems: Moderate: 1+ chronic illnesses with change Data: Unique test result(s) reviewed: 1 Unique test(s) ordered: 1 Risk: Moderate: Drug management Medical Decision Making Level: 4 - Moderate Erin Greer, MSN, WHEEL FITTER, SHEAR SCRAPMAN-C, CDE Endocrinology [facility]/[address] [place] [address] Fax: documented in this encounterPromedica [facility] Hospital06-08-2015 History of Past illness Narrative* Problem Noted Date Resolved Date Background diabetic retinopathy 07/28/2014 07/09/2018 Insulin long-term use 11/14/2011 06/13/2012 documented as of this encounter (statuses as of 05/25/2021) [facility] History of Past illness Narrative* Problem Noted Date Resolved Date Background diabetic retinopathy 07/28/2014 07/09/2018 Insulin long-term use 11/14/2011 06/13/2012 documented as of this encounter (statuses as of 06/16/2021) [facility] History of Past illness Narrative* Problem Noted Date Resolved Date Background diabetic retinopathy 07/28/2014 07/09/2018 Insulin long-term use 11/14/2011 06/13/2012 documented as of this encounter (statuses as of 08/24/2021) [place] [address]-08-2015 History of Past illness Narrative* Problem Noted Date Resolved Date Background diabetic retinopathy 07/28/2014 07/09/2018 Insulin long-term use 11/14/2011 06/13/2012 documented as of this encounter (statuses as of 01/23/2022) [address]08-2015 History of Past illness Narrative* Problem Noted Date Resolved Date Background diabetic retinopathy 07/28/2014 07/09/2018 Insulin long-term use 11/14/2011 06/13/2012 documented as of this encounter (statuses as of 02/25/2022) [address]08-2015 History of Past illness Narrative* Problem Noted Date Resolved Date Background diabetic retinopathy 07/28/2014 07/09/2018 Insulin long-term use 11/14/2011 06/13/2012 documented as of this encounter (statuses as of 06/21/2022) [address]08-2015 History of Past illness Narrative* Problem Noted Date Resolved Date Background diabetic retinopathy 07/28/2014 07/09/2018 Insulin long-term use 11/14/2011 06/13/2012 documented as of this encounter (statuses as of 06/23/2022) [address]08-2015 History of Past illness Narrative* Problem Noted Date Diagnosed Date Resolved Date Background diabetic retinopathy 07/28/2014 07/09/2018 Insulin long-term use 11/14/20112012 documented as of this encounter (statuses as of 11/08/2022) [address]08-2015 History of Past illness Narrative* Problem Noted Date Diagnosed Date Resolved Date Background diabetic retinopathy 07/28/2014 07/09/2018 Insulin long-term use 11/14/20112012 documented as of this encounter (statuses as of 12/25/2022) [facility]* Diagnosis Anesthesia of skin Disturbance of skin sensation documented in this encounter [facility] Work Phone: Evaluation note* Diagnosis 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)- Primary 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) Type I (juvenile type) diabetes mellitus without mention of complication, not stated as uncontrolled Osteopenia of multiple sites Pure hypercholesterolemia Primary hypertension Unspecified essential hypertension documented in this encounter [facility]* Diagnosis Pure hypercholesterolemia documented in this encounter [facility]* Diagnosis Depression, unspecified depression type [facility]* Diagnosis Onset Date Resolution Status Chest pain acute Colonoscopy planned acute [facility] Work Phone: Evaluation note* Diagnosis 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)- Primary Pure hypercholesterolemia Osteopenia of multiple sites Primary hypertension Unspecified essential hypertension Microalbuminuria due to type 1 diabetes mellitus (HCC) Disorder of bone and cartilage Disorder of bone and cartilage, unspecified documented in this encounter [facility]* Diagnosis Hyponatremia Hyposmolality and/or hyponatremia documented in this encounter [facility]* Diagnosis Encounter for annual wellness visit (AWV) in Medicare patient- Primary History of right breast cancer Diabetic 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) Dry skin dermatitis Contact dermatitis and other eczema due to other specified agent Primary hypertension Unspecified essential hypertension Hypercholesterolemia Pure hypercholesterolemia Routine general medical examination at health care facility Routine general medical examination at a health care facility [facility] Diagnosis Memory loss- Primary Anxiety Anxiety state, unspecified Vitamin D deficiency Caregiver stress Sleep disorder Unspecified sleep disturbance [facility] Diagnosis Vitamin D deficiency- Primary 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 Diagnosis Osteopenia of multiple sites Disorder of bone and cartilage Disorder of bone and cartilage, unspecified documented [facility] this encounter [facility]* Diagnosis Dependent edema- Primary Edema Primary hypertension Unspecified essential hypertension [facility] this [facility] noteNo assessment information availableWWood [facility] Work Phone: Evaluation note* Diagnosis Leg swelling Swelling of limb [facility] Diagnosis Gardnerella associated vaginal discharge- Primary Infection due to other specified bacteria in conditions classified elsewhere and of unspecified site Dependent edema Edema Primary hypertension Unspecified essential hypertension Decreased breath sounds at right lung base Closed fracture of sacrum and coccyx with routine healing, subsequent encounter Uncontrolled type 1 diabetes mellitus with hyperglycemia (HCC) JENN (generalized anxiety disorder) Generalized anxiety disorder Abrasion of upper extremity, unspecified laterality, subsequent encounter documented in this encounter [facility] note* Diagnosis Leg swelling Swelling of limb [facility]* Diagnosis Dependent edema Edema Decreased breath sounds at right lung base documented in this encounter [facility] note* Diagnosis 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)- Primary Pure hypercholesterolemia Osteopenia of multiple sites Primary hypertension Unspecified essential hypertension Vitamin D deficiency Unspecified vitamin D deficiency Venous insufficiency (chronic) (peripheral) Unspecified venous (peripheral) insufficiency documented in this encounter [facility] note* Diagnosis 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) Type I (juvenile type) diabetes mellitus without mention of complication, not stated as uncontrolled documented in this encounter [facility] note* Diagnosis Dependent edema- Primary Edema Primary hypertension Unspecified essential hypertension 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) Uncontrolled type 1 diabetes mellitus with hyperglycemia (HCC) Dyspnea, unspecified Hypercholesterolemia Pure hypercholesterolemia History of right breast cancer documented in this encounter [facility] note* Diagnosis Routine general medical examination at health care facility- Primary Routine general medical examination at a health care facility Peripheral edema Edema Alcohol use Other problems related to lifestyle LLQ abdominal pain Abdominal pain, left lower quadrant Primary hypertension Unspecified essential hypertension documented in this encounter [facility] note* Diagnosis Peripheral edema Edema [facility]* Diagnosis Alcohol use Other problems related to lifestyle LLQ abdominal pain Abdominal pain, left lower quadrant documented [facility] this [facility]* Diagnosis Peripheral edema Edema [facility]* Diagnosis Lymphedema- Primary Other noninfectious lymphedema Primary hypertension Unspecified essential hypertension 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) Hypercholesterolemia Pure hypercholesterolemia Anxiety and depression Uncontrolled type 1 diabetes mellitus with hyperglycemia (HCC) documented in this encounter [facility] note* Diagnosis Leg weakness, bilateral- Primary Muscle weakness (generalized) documented in this encounter [facility] note* Diagnosis Gardnerella associated vaginal discharge- Primary Infection due to other specified bacteria in conditions classified elsewhere and of unspecified site documented in this encounter [facility] note* Diagnosis Pure hypercholesterolemia documented in this encounter [facility] note* Diagnosis Peripheral edema- Primary Edema documented in this encounter [facility] note* Diagnosis Peripheral edema Edema documented in this encounter [facility] note* Diagnosis Lymphedema Other noninfectious lymphedema documented in this encounter [facility] note* Diagnosis 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) Type I (juvenile type) diabetes mellitus without mention of complication, not stated as uncontrolled Primary hypertension Unspecified essential hypertension documented in this encounter [facility] note* Diagnosis 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) Type I (juvenile type) diabetes mellitus without mention of complication, not stated as uncontrolled documented in this encounter [facility] note* Diagnosis JENN (generalized anxiety disorder)- Primary Generalized anxiety disorder Obsessive-compulsive behavior Type 1 diabetes mellitus without complication ([facility]/HCC) (HCC) Type I (juvenile type) diabetes mellitus without mention of complication, not stated as uncontrolled documented in this encounter [facility] note* Diagnosis Screening mammogram for high-risk patient- Primary Other screening mammogram documented in this encounter [facility] note* Diagnosis Screening mammogram for high-risk patient- Primary Other screening mammogram documented in this encounter [facility] note* Diagnosis Type 2 diabetes mellitus without complication, without long-term current use of insulin ([facility]) ([facility]) documented in this encounter [facility] note* Diagnosis Anxiety- Primary Anxiety state, unspecified Vitamin D deficiency Caregiver stress Dependent edema- Primary Edema Primary hypertension Unspecified essential hypertension Routine general medical examination at health care facility- Primary Routine general medical examination at a health care facility Peripheral edema Edema Alcohol use Other problems related to lifestyle LLQ abdominal pain Abdominal pain, left lower quadrant Primary hypertension Unspecified essential hypertension Primary hypertension- Primary Unspecified essential hypertension 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) Anxiety and depression Hypercholesterolemia Pure hypercholesterolemia Peripheral edema Edema Breast cancer screening by mammogram documented in this encounter [facility] note* Diagnosis Anxiety- Primary Anxiety state, unspecified Vitamin D deficiency Caregiver stress Dependent edema- Primary Edema Primary hypertension Unspecified essential hypertension Routine general medical examination at [facility] care facility- Primary Routine general medical examination at a [facility] care facility Peripheral edema Edema Alcohol use Other problems related to lifestyle LLQ abdominal pain Abdominal pain, left lower quadrant Primary hypertension Unspecified essential hypertension Other screening mammogram [facility] Diagnosis Anxiety- Primary Anxiety state, unspecified Vitamin D deficiency Caregiver stress Dependent edema- Primary Edema Primary hypertension Unspecified essential hypertension Routine general medical examination at [facility]- Primary [facility] Peripheral edema Edema Alcohol use Other problems related to lifestyle LLQ abdominal pain Abdominal pain, left lower quadrant Primary hypertension Unspecified essential hypertension Primary hypertension Unspecified essential hypertension [facility]* Diagnosis Anxiety- Primary Anxiety state, unspecified Vitamin D deficiency Caregiver stress Dependent edema- Primary Edema Primary hypertension Unspecified essential hypertension Routine general medical examination at [facility]- Primary Routine general medical examination at a [facility] Peripheral edema Edema Alcohol use Other problems related to lifestyle LLQ abdominal pain Abdominal pain, left lower quadrant Primary hypertension Unspecified essential hypertension Other screening mammogram [facility]* Diagnosis Anxiety- Primary Anxiety state, unspecified Vitamin D deficiency Caregiver stress Dependent edema- Primary Edema Primary hypertension Unspecified essential hypertension Routine general medical examination at [facility]- Primary [facility] Peripheral edema Edema Alcohol use Other problems related to lifestyle LLQ abdominal pain Abdominal pain, left lower quadrant Primary hypertension Unspecified essential hypertension Primary hypertension Unspecified essential hypertension [facility]* Diagnosis Anxiety- Primary Anxiety state, unspecified Vitamin D deficiency Caregiver stress Dependent edema- Primary Edema Primary hypertension Unspecified essential hypertension Routine general medical examination at [facility]- Primary [facility] Peripheral edema Edema Alcohol use Other problems related to lifestyle LLQ abdominal pain Abdominal pain, left lower quadrant Primary hypertension Unspecified essential hypertension Ataxia- Primary Lack of coordination Leg weakness, bilateral Muscle weakness (generalized) Anxiety and depression [facility]* Diagnosis Anxiety- Primary Anxiety state, unspecified Vitamin D deficiency Caregiver stress Dependent edema- Primary Edema Primary hypertension Unspecified essential hypertension Routine general medical examination at [facility]- Primary Routine general medical examination at a [facility] facility Peripheral edema Edema Alcohol use Other problems related to lifestyle LLQ abdominal pain Abdominal pain, left lower quadrant Primary hypertension Unspecified essential hypertension Ataxia- Primary Lack of coordination Primary hypertension Unspecified essential hypertension Anxiety and depression Uncontrolled type 1 diabetes mellitus with hyperglycemia (HCC) Diabetic peripheral neuropathy (HCC) Type II or unspecified type diabetes mellitus with neurological manifestations, not stated as uncontrolled Physical deconditioning Muscular wasting and disuse atrophy, not elsewhere classified [facility]* Diagnosis Anxiety- Primary Anxiety state, unspecified Vitamin D deficiency Caregiver stress Dependent edema- Primary Edema Primary hypertension Unspecified essential hypertension Routine general medical examination at health care facility- Primary [facility] Peripheral edema Edema Alcohol use Other problems related to lifestyle LLQ abdominal pain Abdominal pain, left lower quadrant Primary hypertension Unspecified essential hypertension Hyponatremia- Primary Hyposmolality and/or hyponatremia 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) Type I (juvenile type) diabetes mellitus without mention of complication, not stated as uncontrolled [facility] Diagnosis Anxiety- Primary Anxiety state, unspecified Vitamin D deficiency Caregiver stress Dependent edema- Primary Edema Primary hypertension Unspecified essential hypertension Routine general medical examination at health care facility- Primary [facility] Peripheral edema Edema Alcohol use Other problems related to lifestyle LLQ abdominal pain Abdominal pain, left lower quadrant Primary hypertension Unspecified essential hypertension Ataxia- Primary Lack of coordination Primary hypertension Unspecified essential hypertension Anxiety and depression Uncontrolled type 1 diabetes mellitus with hyperglycemia (HCC) Diabetic peripheral neuropathy (HCC) Type II or unspecified type diabetes mellitus with neurological manifestations, not stated as uncontrolled Physical deconditioning Muscular wasting and disuse atrophy, not elsewhere classified [facility] this [facility] Diagnosis Anxiety- Primary Anxiety state, unspecified Vitamin D deficiency Caregiver stress Dependent edema- Primary Edema Primary hypertension Unspecified essential hypertension Routine general medical examination at health care facility- Primary [facility] Peripheral edema Edema Alcohol use Other problems related to lifestyle LLQ abdominal pain Abdominal pain, left lower quadrant Primary hypertension Unspecified essential hypertension Ataxia- Primary Lack of coordination Leg weakness, bilateral Muscle weakness (generalized) Physical deconditioning Muscular wasting and disuse atrophy, not elsewhere classified Diabetic 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 Diagnosis Anxiety- Primary Anxiety state, unspecified Vitamin D deficiency Caregiver stress Dependent edema- Primary Edema Primary hypertension Unspecified essential hypertension Routine general medical examination at health care facility- Primary Routine general medical examination at a [facility] Peripheral edema Edema Alcohol use Other problems related to lifestyle LLQ abdominal pain Abdominal pain, left lower quadrant Primary hypertension Unspecified essential hypertension Uncontrolled type 1 diabetes mellitus with hyperglycemia (HCC)- Primary [facility]* Diagnosis 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) Type I (juvenile type) diabetes mellitus without mention of complication, not stated as uncontrolled [facility]* Diagnosis Anxiety- Primary Anxiety state, unspecified Vitamin D deficiency Caregiver stress Dependent edema- Primary Edema Primary hypertension Unspecified essential hypertension Routine general medical examination at health care facility- Primary [facility] Peripheral edema Edema Alcohol use Other problems related to lifestyle LLQ abdominal pain Abdominal pain, left lower quadrant Primary hypertension Unspecified essential hypertension PMB (postmenopausal bleeding)- Primary Postmenopausal bleeding Vaginal discharge Leukorrhea, not specified as infective documented in this encounter [facility] note* Diagnosis Anxiety- Primary Anxiety state, unspecified Vitamin D deficiency Caregiver stress Dependent edema- Primary Edema Primary hypertension Unspecified essential hypertension Routine general medical examination at health care facility- Primary [facility] Peripheral edema Edema Alcohol use Other problems related to lifestyle LLQ abdominal pain Abdominal pain, left lower quadrant Primary hypertension Unspecified essential hypertension Encounter for gynecological examination with abnormal finding- Primary PMB (postmenopausal bleeding) Postmenopausal bleeding Vaginal discharge Leukorrhea, not specified as infective [facility]* Diagnosis 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)- Primary Premature menopause Osteopenia of multiple sites Microalbuminuria due to type 1 diabetes mellitus (HCC) Primary hypertension Unspecified essential hypertension Pure hypercholesterolemia documented [facility]* Diagnosis Anxiety- Primary Anxiety state, unspecified Vitamin D deficiency Caregiver stress Dependent edema- Primary Edema Primary hypertension Unspecified essential hypertension Routine general medical examination at health care facility- Primary [facility] Peripheral edema Edema Alcohol use Other problems related to lifestyle LLQ abdominal pain Abdominal pain, left lower quadrant Primary hypertension Unspecified essential hypertension PMB (postmenopausal bleeding)- Primary Postmenopausal bleeding documented in this encounter [facility] note* Diagnosis Anxiety- Primary Anxiety state, unspecified Vitamin D deficiency Caregiver stress Dependent edema- Primary Edema Primary hypertension Unspecified essential hypertension Routine general medical examination at health care facility- Primary Routine general medical examination at a health care facility Peripheral edema Edema Alcohol use Other problems related to lifestyle LLQ abdominal pain Abdominal pain, left lower quadrant Primary hypertension Unspecified essential hypertension Vaginal discharge- Primary Leukorrhea, not specified as infective [facility] Consultation (Routine) - Pending Review Specialty Diagnoses / Procedures Referred By Contac t Referred To Contact Obstetrics and Gynecology Diagnoses Gardnerella associated vaginal discharge Procedures MO OFFICE/OUTPATIENT NEW HIGH MDM 60 MINUTES Norberto Gómez, DO [address] [place] [address] [facility] 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 [facility] Consultation (Routine) - Pending Review Specialty Diagnoses / Procedures Referred By Sonalac t Referred To Contact Vascular Surgery Diagnoses Lymphedema Procedures MO OFFICE/OUTPATIENT [facility] 60 MINUTES Norberto Gómez, DO [address] [place] [address] [address] Referral ID Status Reason Start Date Expiration Date Visits Requested Visits Authorized [id number] Pending Review Specialty Services Required 11/16/2023 11/15/2024 1 1 [facility] for referral (narrative)No reason for referral information availableMaidens Medical Services Work Phone: Summary Purpose Family History No Family History Records FoundNo Family History Records FoundNo Family History Records FoundNo Family History Records FoundNo Family History Records FoundNo Family History Records Found Advance Directives No Advanced Directives Records FoundDocuments on File Type Date Recorded Patient Supervisor Liquefaction Expl anation ACP-Advance Directive ACP-Power of Optometrist Documents on File Type Date Recorded Patient Supervisor Liquefaction Expl anation Advance Directive(s) 04/18/2016 8:53 AM Advance Directive(s) 2016 2:28 PM Advance Directive Response Recorded Date/ Time Name of Medical Power of Optometrist SPOUSE October 14, 2021 11:27am Living Will Yes October 14 11:27am Power of Optometrist Yes October 14, 022 11:27am Advance Directive Response Recorded Date/ Time Living Will No May 27, 2023 1:04pm Power of Optometrist No May 26 1:04pm Chief Complaint and Reason for Visit Chief Complaint CH BOWEL MOVEMENT Reason for Visit Chest pain Colonoscopy planned Chief Complaint FALL, HEAD INJURY Chief Complaint Admit Date 3-4 m M FU March 05, 2024 9 :49am Diabetes June 20, 2024 1:45pm CGM Start June 26, 2024 10:58a m CGM Help July 03, 2024 9:03a m Reason for Visit Admit Date Discoloration of skin of lower leg Janua ry 2024 9:49am Lower extremity edema March 05, 2024 9:49am Venous insufficiency March 05, 2024 9:49am High cholesterol June 20, 2024 1:45pm Hypertension June 20, 2024 1:45pm Lower extremity edema June 20, 2024 1:45 pm Type 1 diabetes mellitus with hyperglyce yashira June 20, 2024 1:45pm Venous insufficiency June 20, 2024 1:45p m Chief Complaint Admit Date Diabetes June 20, 2024 1:45pm CGM Start June 26, 2024 10:58a m CGM Help July 03, 2024 9:03a m Reason for Visit Admit Date High cholesterol June 20, 2024 1:45pm Hypertension June 20, 2024 1:45pm Lower extremity edema June 20, 2024 1:45 pm Type 1 diabetes mellitus with hyperglyce yashira June 20, 2024 1:45pm Venous insufficiency June 20, 2024 1:45p m Chief Complaint Admit Date Diabetes June 20, 2024 1:45pm CGM Start May 7th, 2025 10:58a m CGM Help July 03, 2024 9:03a m 3 M FU September 11, 2024 8:20 am Reason for Referral Specialty Diagnoses / Procedures Referred By Angelina treadwell Referred To Contact Podiatry Diagnoses 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) 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) Procedures CONSULT TO PODIATRY OFFICE/OUTPATIENT NEW HIGH MDM 60-74 MINUTES Erin Greer APRN.SODA CLERK [address] [address] Referral ID Status Reason Start Date Expiration Date Visits Requested Visits Authorized [id number] Authorized PCP Requested Referral 11/08/2022 11/08/2023 1 1 Specialty Diagnoses / Procedures Referred By Angelina treadwell Referred To Contact Diagnoses 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) 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) Erin Greer APRN.SODA CLERK [address] [address] Referral ID Status Reason Start Date Expiration Date Visits Re quested Visits Authorized [id number] Closed 1 1 Specialty Diagnoses / Procedures Referred By Angelina treadwell Referred To Contact Cardiology Diagnoses Leg swelling Procedures Vascular US lower extremity venous duplex bilateral Norberto Gómez F, DO [address] [place] [address] Referral ID Status Reason Start Date Expiration Date V isits Requested Visits Authorized [id number] Pending Review 05/30/2023 05/29/2024 1 1 Referral ID Status Reason Start Date Expiration Date Visits Re quested Visits Authorized [id number] Closed 05/30/2023 05/29/2024 1 1 Specialty Diagnoses / Procedures Referred By Angelina treadwell Referred To Contact Cardiology Diagnoses Peripheral edema Procedures Transthoracic echocardiogram (TTE) complete with contrast, bubble, strain, and 3D PRN MO ECHO TTHRC R-T 2D W/WOM-MODE COMPL SPEC&COLR D MO TTE W OR WO FOL WCON,DOPPLER Allen Rapp PA-C [address] [place] [address] Referral ID Status Reason Start Date Expiration Date V isits Requested Visits Authorized [id number] Pending Review 07/20/2023 07/19/2024 1 1 Referral ID Status Reason Start Date Expiration Date Visits Re quested Visits Authorized [id number] Closed 07/20/2023 07/19/2024 1 1 Specialty Diagnoses / Procedures Referred By Contac t Referred To Contact Physical Therapy Diagnoses Leg weakness, bilateral Procedures MO OFFICE/OUTPATIENT NEW HIGH MDM 60 MINUTES Norberto Gómez F, DO [address] [place] [address] Referral ID Status Reason Start Date Expiration Date Visits Requested Visits Authorized [id number] Pending Review Eval and Treat 09/29/2023 03/27/2024 99 99 Specialty Diagnoses / Procedures Referred By Contac t Referred To Contact Occupational Therapy Diagnoses Peripheral edema Procedures MO OFFICE/OUTPATIENT NEW HIGH [facility] 60 MINUTES Norberto Gómez, DO [address] [place] [address] [address] Referral ID Status Reason Start Date Expiration Date Visits Requested Visits Authorized [id number] Pending Review Eval and Treat 11/07/2023 11/06/2024 99 99 Referral ID Status Reason Start Date Expiration Date Visits Requested Visits Authorized [id number] Pending Review Eval and Treat 11/13/2023 11/12/2024 99 99 Scheduling Instructions LYMPHEDEMA SPECIALIST Additional Source Comments INFORMATION SOURCE (unrecogn ized section and content) DATE CREATED AUTHOR 09/18/2018 [facility] DATE CREATED AUTHOR AUTHOR'S ORGANIZ ATION 09/23/2019 [facility] DATE CREATED AUTHOR AUTHOR'S ORGANIZ ATION 06/23/2022 [facility] DATE CREATED AUTHOR AUTHOR'S ORGANIZ ATION 06/27/2024 [facility] DATE CREATED AUTHOR AUTHOR'S ORGANIZ ATION 08/17/2024 [facility] DATE CREATED AUTHOR AUTHOR'S ORGANIZ ATION 09/28/2024 [facility] Reason for Visit (unrecogniz ed section and content) Status Reason Specialty Diagnoses / Procedures Referred By Contact Referred To Contact Pending Review Neurology Diagnoses Numbness in both legs Procedures Nerve Conduction Test with EMG Allen Hardin MD [address] [place] [address] Reason Comments Insulin Dependent Diabetes Mellitus Reason Onset Date Comments Refill Request 06/14/2021 Refill Request 06/16/2021 Reason Comments Refill Request Reason Comments Diabetes Established Patient Reason Comments Results Reason Comments Medicare Annual Wellness Visit Subsequen t Reason Onset Date Comments Appointment Request 09/15/2022 Juliette Reason Comments Memory Loss Specialty Diagnoses / Procedures Referred By Contrabia t Referred To Contact Geriatric Medicine Diagnoses Pt has had Type 1 Diabetes since college (1974 or so) and is wondering if that has any impact on her mental status. Procedures geriatric assessment [facility] [address] [facility] [address] [address] [address] Referral ID Status Reason Start Date Expiration Date Visits Re quested Visits Authorized [id number] Closed 09/20/2022 03/19/2023 1 1 Reason Comments Insulin Dependent Diabetes Mellitus Reason Onset Date Comments Leg Swelling 04/10/2023 Reason Onset Date Comments Leg Pain 05/01/2023 Leg Swelling 05/01/2023 Reason Comments Leg Swelling B/l Diabetes Reason Onset Date Comments Orders 05/30/2023 Venous doppler Reason Comments Vaginal Discharge Vaginal Odor Leg Swelling Specialty Diagnoses / Procedures Referred By Contac t Referred To Contact Cardiology Diagnoses Leg swelling Procedures Vascular US lower extremity venous duplex bilateral Norberto Gómez F, DO [address] [place] [address] Referral ID Status Reason Start Date Expiration Date Visits Re quested Visits Authorized [id number] Closed 05/30/2023 05/29/2024 1 1 Reason Comments Follow Up Established Patient Reason Onset Date Comments Refill Request 06/21/2023 Reason Comments discuss swelling In both legs Reason Comments Medicare Annual Wellness Visit Subsequen t Reason Onset Date Comments Forms/questionnaires 07/21/2023 Reason Onset Date Comments Medication Problem 08/15/2023 Reason Onset Date Comments Advice Only 08/30/2023 Vaginal Discharge 08/30/2023 Specialty Diagnoses / Procedures Referred By Angelina treadwell Referred To Contact Cardiology Diagnoses Peripheral edema Procedures Transthoracic echocardiogram (TTE) complete with contrast, bubble, strain, and 3D PRN MO ECHO TTHRC R-T 2D W/WOM-MODE COMPL SPEC&COLR D MO TTE W OR WO FOL WCON,DOPPLER Allen Rapp PA-C [address] [facility] [address] [place] [address] Referral ID Status Reason Start Date Expiration Date Visits Re quested Visits Authorized [id number] Closed 07/20/2023 07/19/2024 1 1 Reason Comments Follow-up Med check Reason Onset Date Comments Orders 09/29/2023 Physical therapy Reason Onset Date Comments Orders 10/10/2023 [facility] referral Reason Onset Date Comments Error (VOID this visit) 10/12/2023 Reason Onset Date Comments Vaginal Discharge 10/10/2023 Reason Onset Date Comments Other 11/05/2023 Follow-up to [facility] clinic referral Reason Comments Med Refill Reason Onset Date Comments Referral 11/10/2023 Reason Onset Date Comments Referral 11/10/2023 Reason Onset Date Comments Referral 11/15/2023 Reason Onset Date Comments Referral 11/15/2023 Reason Onset Date Comments Refill Request 01/15/2024 Reason Comments Follow-up Reason Onset Date Comments Medication Problem 04/13/2022 Reason Onset Date Comments Orders 05/02/2022 Reason Comments Follow-up Med Check Foot Swelling Reason Onset Date Comments Orders 03/20/2024 Mammogram Reason Comments Blood Pressure Check Reason Onset Date Comments Falls, Balance 04/24/2024 Reason Onset Date Comments Referral 04/29/2024 MRI-Head / [facility] e[facility] PT / Psychology Reason Comments Difficulty Walking Weak and unsteady on feet , would like life alert Eye Problem X 2 days both Reason Onset Date Comments Other 05/02/2024 Home Health Requ est Reason Onset Date Comments Medication Question 05/03/2024 Reason Onset Date Comments Refill Request 05/06/2024 Reason Onset Date Comments Other 05/08/2024 [facility] Reason Onset Date Comments Error (VOID this visit) 05/10/2024 Reason Comments Results Osmin Ray F[facility] Medicine Reason Onset Date Comments Orders 05/08/2024 Reason Onset Date Comments Results 04/17/2024 04/16/24 Mammogra m Reason Onset Date Comments Referral 05/16/2024 Reason Onset Date Comments Medication Question 05/16/2024 Reason Comments Received Office Notes [facility] Reason Onset Date Comments Referral 05/17/2024 Reason Onset Date Comments Other 05/20/2024 Reason Comments New Patient Est. Care, annual ex am,brown discharge x1 year Reason Onset Date Comments Other 06/03/2024 After visit Reason Comments Established Patient Reason Comments Insurance Authorization ([employer] [id number] SENSO R) Reason Onset Date Comments Other 06/05/2024 Home care update Reason Onset Date Comments Vaginal Odor 07/08/2024 Reason Onset Date Comments Other 06/24/2024 Home care update Reason Comments Vaginal Discharge Vaginal odor and dis charge Source Comments (unrecognize d section and content) In the event this informatio n is protected by the Federal Confidentiality of Alcohol and Drug Abuse Patient Records regulations: The Federal rules restrict any use of the information to criminally investigate or prosecute any alcohol or drug abuse patient.[facility] the event this information is protected by the Federal Confidentiality of Alcohol and Drug Abuse Patient Records regulations: The Federal rules restrict any use of the information to criminally investigate or prosecute any alcohol or drug abuse patient.[facility] the event this information is protected by the Federal Confidentiality of Alcohol and Drug Abuse Patient Records regulations: The Federal rules restrict any use of the information to criminally investigate or prosecute any alcohol or drug abuse patient.[facility] Hospital[facility] the event this information is protected by the Federal Confidentiality of Alcohol and Drug Abuse Patient Records regulations: The Federal rules restrict any use of the information to criminally investigate or prosecute any alcohol or drug abuse patient.[facility] the event this information is protected by the Federal Confidentiality of Alcohol and Drug Abuse Patient Records regulations: The Federal rules restrict any use of the information to criminally investigate or prosecute any alcohol or drug abuse patient.[facility] Hospital[facility] the event this information is protected by the Federal Confidentiality of Alcohol and Drug Abuse Patient Records regulations: The Federal rules restrict any use of the information to criminally investigate or prosecute any alcohol or drug abuse patient.[facility] Hospital[facility] the event this information is protected by the Federal Confidentiality of Alcohol and Drug Abuse Patient Records regulations: The Federal rules restrict any use of the information to criminally investigate or prosecute any alcohol or drug abuse patient.[facility] the event this information is protected by the Federal Confidentiality of Alcohol and Drug Abuse Patient Records regulations: The Federal rules restrict any use of the information to criminally investigate or prosecute any alcohol or drug abuse patient.[facility] Hospital[facility] the event this information is protected by the Federal Confidentiality of Alcohol and Drug Abuse Patient Records regulations: The Federal rules restrict any use of the information to criminally investigate or prosecute any alcohol or drug abuse patient.[facility] Hospital[facility] the event this information is protected by the Federal Confidentiality of Alcohol and Drug Abuse Patient Records regulations: The Federal rules restrict any use of the information to criminally investigate or prosecute any alcohol or drug abuse patient.[facility] the event this information is protected by the Federal Confidentiality of Alcohol and Drug Abuse Patient Records regulations: The Federal rules restrict any use of the information to criminally investigate or prosecute any alcohol or drug abuse patient.[facility] Hospital[facility] the event this information is protected by the Federal Confidentiality of Alcohol and Drug Abuse Patient Records regulations: The Federal rules restrict any use of the information to criminally investigate or prosecute any alcohol or drug abuse patient.[facility] Hospital[facility] the event this information is protected by the Federal Confidentiality of Alcohol and Drug Abuse Patient Records regulations: The Federal rules restrict any use of the information to criminally investigate or prosecute any alcohol or drug abuse patient.[facility] Hospital[facility] the event this information is protected by the Federal Confidentiality of Alcohol and Drug Abuse Patient Records regulations: The Federal rules restrict any use of the information to criminally investigate or prosecute any alcohol or drug abuse patient.[facility] HospitalIn the event this information is protected by the Federal Confidentiality of Alcohol and Drug Abuse Patient Records regulations: The Federal rules restrict any use of the information to criminally investigate or prosecute any alcohol or drug abuse patient.[facility] HospitalIn the event this information is protected by the Federal Confidentiality of Alcohol and Drug Abuse Patient Records regulations: The Federal rules restrict any use of the information to criminally investigate or prosecute any alcohol or drug abuse patient.[facility] HospitalIn the event this information is protected by the Federal Confidentiality of Alcohol and Drug Abuse Patient Records regulations: The Federal rules restrict any use of the information to criminally investigate or prosecute any alcohol or drug abuse patient.[facility] HospitalIn the event this information is protected by the Federal Confidentiality of Alcohol and Drug Abuse Patient Records regulations: The Federal rules restrict any use of the information to criminally investigate or prosecute any alcohol or drug abuse patient.[facility] HospitalIn the event this information is protected by the Federal Confidentiality of Alcohol and Drug Abuse Patient Records regulations: The Federal rules restrict any use of the information to criminally investigate or prosecute any alcohol or drug abuse patient.[facility] Care Teams (unrecognized sec tion and content) Director Auto Relationship Specialty Start Date End Date Gaurav Nunez DO [address] [place] [address] PCP - General Family Practice 11/09/15 Director Auto Relationship Specialty Start Date End Date Gaurav Nunez DO [address] [place] [address] PCP - General Family Practice 11/09/15 Director Auto Relationship Specialty Start Date End Date Gaurav Nunez DO [address] [place] [address] PCP - General Family Practice 11/09/15 Director Auto Relationship Specialty Start Date End Date Gaurav Nunez DO [address] [place] [address] PCP - General Family Medicine 11/09/15 Director Auto Relationship Specialty Start Date End Date Gaurav Nunez DO [address] [place] [address] PCP - General Family Medicine 11/09/15 Director Auto Relationship Specialty Start Date End Date Gaurav Nunez, DO [address] [place], [place] [phone] PCP - General Family Medicine 11/09/15 Director Auto Relationship Specialty Start Date End Date Norberto Gómez, DO [address] [place] [address] PCP - General Family Medicine 07/04/22 Director Auto Relationship Specialty Start Date End Date Norberto Gómez, DO [address] [place] [address] PCP - General Family Medicine 07/04/22 Director Auto Relationship Specialty Start Date End Date Norberto Gómez, DO [address] [place] [address] PCP - General Family Medicine 07/04/22 Director Auto Relationship Specialty Start Date End Date Norberto Gómez, DO [address] [place] [address] PCP - General Family Medicine 07/04/22 Director Auto Relationship Specialty Start Date End Date Norberto Gómez, DO [address] [place] [address] PCP - General Family Medicine 07/04/22 Director Auto Relationship Specialty Start Date End Date Gaurav Nunez, DO [address] [place], [place] [phone]- PCP - General Family Medicine 11/09/15 Director Auto Relationship Specialty Start Date End Date Norberto Gómez, DO [address] [place], [place] [id number]- PCP - General Family Medicine 07/04/22 Director Auto Relationship Specialty Start Date End Date Gaurav Nunez DO [address] [place] [address] PCP - General Family Medicine 11/09/15 Director Auto Relationship Specialty Start Date End Date Norberto Gómez DO [address] [place] [phone] PCP - General Family Medicine 07/04/22 Director Auto Relationship Specialty Start Date End Date Norberto Gómez DO [address] [place] [address] PCP - General Family Medicine 07/04/22 Director Auto Relationship Specialty Start Date End Date Norberto Gómez DO [address] [place] [address] PCP - General Family Medicine 07/04/22 Team Status: Active Member Role Status Dates Dr. Gaurav Nunez , Family Provider Active Dr. Norberto Gómez DO Primary Care Provider Active Team Status: Inactive Member Role Status Dates Dr. Rajwinder Naik , Emergency Provider Active Dr. Norberto Gómez DO Primary Care Provider Active Director Auto Relationship Specialty Start Date End Date Norberto Gómez, [address] [place] [address] PCP - General Family Medicine 07/04/22 Director Auto Relationship Specialty Start Date End Date Norberto Gómez DO [address] [place] [address] PCP - General Family Medicine 07/04/22 Director Auto Relationship Specialty Start Date End Date Norberto Gómez DO [address] [place] [address] PCP - General Family Medicine 07/04/22 Director Auto Relationship Specialty Start Date End Date Norberto Gómez DO [address] [place] [address] PCP - General Family Medicine 07/04/22 Director Auto Relationship Specialty Start Date End Date DariaNorberto iqbal DO [address] [place] [address] PCP - General Family Medicine 07/04/22 Director Auto Relationship Specialty Start Date End Date Norberto Gómez [address] [place] [address] PCP - General Family Medicine 07/04/22 Director Auto Relationship Specialty Start Date End Date Norberto Gómez DO [address] [place] [address] PCP - General Family Medicine 06/16/23 Director Auto Relationship Specialty Start Date End Date Norberto Gómez [address] [place], [place] [id number] PCP - General Family Medicine 06/16/23 Director Auto Relationship Specialty Start Date End Date DariaNorberto iqbal [address] [place] [address] PCP - General Family Medicine 07/04/22 Allen Rapp PA-C [address] [place] [address]33[address] Physician Utilization Review Specialist Physician Utilization Review Specialist 07/20/23 Director Auto Relationship Specialty Start Date End Date Norberto Gómez, DO [address] [place] [address]3955010[address]3289 PCP - General Family Medicine 07/04/22 Allen Rapp PA-C [address] [place] [address] Physician Utilization Review Specialist Physician Utilization Review Specialist 07/20/23 Director Auto Relationship Specialty Start Date End Date Norberto Gómez, DO [address] [place] [address] PCP - General Family Medicine 07/04/22 Allen Rapp PA-C [address] [place] [address]76[address] Physician Utilization Review Specialist Physician Utilization Review Specialist 07/20/23 Director Auto Relationship Specialty Start Date End Date Norberto Gómez, DO [address] [place] [address]17[address] PCP - General Family Medicine 07/04/22 Allen Rapp PA-C [address] [place] [address]3347[address]10[address] Physician Utilization Review Specialist Physician Utilization Review Specialist 07/20/23 Director Auto Relationship Specialty Start Date End Date Norberto Gómez, DO [address] [place] [address]8840[address]0625 PCP - General Family Medicine 07/04/22 Allen Rapp PA-C [address] [place] [address] Physician Utilization Review Specialist Physician Utilization Review Specialist 07/20/23 Director Auto Relationship Specialty Start Date End Date Norberto Gómez DO [address] [place] [address] PCP - General Family Medicine 07/04/22 Allen Rapp PA-C [address] [place] [address]3893439[address] Physician Utilization Review Specialist Physician Utilization Review Specialist 07/20/23 Director Auto Relationship Specialty Start Date End Date Norberto Gómez DO [address] [place] [address] PCP - General Family Medicine 07/04/22 Allen Rapp PA-C [address] [place] [address]9504 Physician Utilization Review Specialist Physician Utilization Review Specialist 07/20/23 Director Auto Relationship Specialty Start Date End Date Norberto Gómez DO [address] [place] [address] PCP - General Family Medicine 07/04/22 Allen Rapp PA-C [address] [place] [address]259281[address]0949 Physician Utilization Review Specialist Physician Utilization Review Specialist 07/20/23 Director Auto Relationship Specialty Start Date End Date Norberto Gómez DO [address] [place] [address]9067281[address]9504 PCP - General Family Medicine 07/04/22 Allen Rapp PA-C [address] [place] [address]0667000[address]0720 Physician Utilization Review Specialist Physician Utilization Review Specialist 07/20/23 Director Auto Relationship Specialty Start Date End Date Norberto Gómez DO [address] [place] [address]250[address]8180 PCP - General Family Medicine 07/04/22 Allen Rapp PA-C [address] [place] [address]1527281[address] Physician Utilization Review Specialist Physician Utilization Review Specialist 07/20/23 Director Auto Relationship Specialty Start Date End Date Norberto Gómez DO [address] [place] [phone] PCP - General Family Medicine 06/16/23 Director Auto Relationship Specialty Start Date End Date Norberto Gómez DO [address] [place] [address]58[address] PCP - General Family Medicine 07/04/22 Allen Rapp PA-C [address] [place] [address]8089219[address]6681 Physician Utilization Review Specialist Physician Utilization Review Specialist 07/20/23 Director Auto Relationship Specialty Start Date End Date Norberto Gómez DO [address] [place] [address]2438[address]58[address] PCP - General Family Medicine 07/04/22 Allen Rapp PA-C [address] [place] [address]8445281[address]9504 Physician Utilization Review Specialist Physician Utilization Review Specialist 07/20/23 Director Auto Relationship Specialty Start Date End Date DariaNorberto iqbal DO [address] [place] [address]9704281[address] PCP - General Family Medicine 07/04/22 Allen Rapp PA-C [address] [place] [address] Physician Utilization Review Specialist Physician Utilization Review Specialist 07/20/23 Director Auto Relationship Specialty Start Date End Date Norberto Gómez, [address] [place] [address] PCP - General Family Medicine 06/16/23 Director Auto Relationship Specialty Start Date End Date Norberto Gómez, DO [address] [place], [place] [phone] PCP - General Family Medicine 06/16/23 Director Auto Relationship Specialty Start Date End Date Gaurav Nunez, DO [address] [place] [address] PCP - General 01/27/15 Director Auto Relationship Specialty Start Date End Date Gaurav Nunez DO [address] [place] [address] PCP - General 01/27/15 Director Auto Relationship Specialty Start Date End Date Gaurav Nunez, [address] [place], [place] [phone] PCP - General 01/27/15 Director Auto Relationship Specialty Start Date End Date Gaurav Nunez, DO [address] [place] [address] PCP - General 01/27/15 Director Auto Relationship Specialty Start Date End Date Norberto Gómez DO [address] [place] [address]3727194[address]1710 PCP - General Family Medicine 07/04/22 Allen Rapp PA-C [address] [place] [address]0610661[address]4119 Physician Utilization Review Specialist Physician Utilization Review Specialist 07/20/23 Director Auto Relationship Specialty Start Date End Date Norberto Gómez DO [address] [place] [address]76[address]13[address]7775 PCP - General Family Medicine 07/04/22 Allen Rapp PA-C [address] [place] [address]1530186[address]5402 Physician Utilization Review Specialist Physician Utilization Review Specialist 07/20/23 Director Auto Relationship Specialty Start Date End Date Norberto Gómez, DO [address] [place] [address]2985328[address]3276 PCP - General Family Medicine 07/04/22 Allen Rapp PA-C [address] [place] [address]4359491[address]7185 Physician Utilization Review Specialist Physician Utilization Review Specialist 07/20/23 Director Auto Relationship Specialty Start Date End Date Norberto Gómez, [address] [place] [address] PCP - General Family Medicine 07/04/22 Allen Rapp PA-C [address] [place] [address]5697281[address]9504 Physician Utilization Review Specialist Physician Utilization Review Specialist 07/20/23 Director Auto Relationship Specialty Start Date End Date Norberto Gómez DO [address] [place] [address] PCP - General Family Medicine 07/04/22 Allen Rapp PA-C [address] [place] [address] Physician Utilization Review Specialist Physician Utilization Review Specialist 07/20/23 Director Auto Relationship Specialty Start Date End Date Norberto Gómez DO [address] [place] [address] PCP - General Family Medicine 07/04/22 Allen Rapp PA-C [address] [place] [address]3561281[address]9504 Physician Utilization Review Specialist Physician Utilization Review Specialist 07/20/23 Director Auto Relationship Specialty Start Date End Date Norberto Gómez DO [address] [place] [address]281[address]9504 PCP - General Family Medicine 07/04/22 Allen Rapp PA-C [address] [place] [address] Physician Utilization Review Specialist Physician Utilization Review Specialist 07/20/23 Director Auto Relationship Specialty Start Date End Date Norberto Gómez DO [address] [place] [phone] PCP - General Family Medicine 06/16/23 Director Auto Relationship Specialty Start Date End Date Norberto Gómez DO [address] [place] [address] PCP - General Family Medicine 07/04/22 Allen Rapp PA-C [address] [place] [address]0984191[address]3181 Physician Utilization Review Specialist Physician Utilization Review Specialist 07/20/23 Director Auto Relationship Specialty Start Date End Date Norberto Gómez DO [address] [place] [address]1323348[address]7110 PCP - General Family Medicine 07/04/22 Allen Rapp PA-C [address] [place] [address]8725[address]9504 Physician Utilization Review Specialist Physician Utilization Review Specialist 07/20/23 Director Auto Relationship Specialty Start Date End Date Norberto Gómez DO [address] [place] [phone] PCP - General Family Medicine 06/16/23 Director Auto Relationship Specialty Start Date End Date Norberto Gómez DO [address] [place] [address]69[address]458[address]2377 PCP - General Family Medicine 07/04/22 Allen Rapp PA-C [address] [place] [address]5779238[address]4155 Physician Utilization Review Specialist Physician Utilization Review Specialist 07/20/23 Director Auto Relationship Specialty Start Date End Date Norberto Gómez DO [address] [place] [address] PCP - General Family Medicine 07/04/22 Allen Rapp PA-C [address] [place] [address]81[address]9504 Physician Utilization Review Specialist Physician Utilization Review Specialist 07/20/23 Director Auto Relationship Specialty Start Date End Date Norberto Gómez DO [address] [place] [address] PCP - General Family Medicine 07/04/22 Allen Rapp PA-C [address] [place] [address] Physician Utilization Review Specialist Physician Utilization Review Specialist 07/20/23 Director Auto Relationship Specialty Start Date End Date DariaNorberto iqbal DO [address] [place] [address]8544281[address] PCP - General Family Medicine 07/04/22 Allen Rapp PA-C [address] [place] [address] Physician Utilization Review Specialist Physician Utilization Review Specialist 07/20/23 Director Auto Relationship Specialty Start Date End Date DaliaNorberto [address] [place], [place] [phone] PCP - General Family Medicine 06/16/23 Director Auto Relationship Specialty Start Date End Date Dalia Norberto Botello [address] [place], [place] [phone] PCP - General Family Medicine 06/16/23 Team Status: Inactive Member Role Status Dates Dr. Norberto Gómez DO Primary Care Provider Active Start: March 05, 2024 End: March 05, 2024 Dr. Norberto Gómez DO Referring Provider Active Start: March 05, 2024 End: March 05, 2024 MAHSA Tejada Attending Provider Active Star t: March 05, 2024 End: March 05, 2024 Team Status: Inactive Member Role Status Dates Dr. Norberto Gómez DO Primary Care Provider Active Start: June 20, 2024 End: June 20, 2024 Dr. Norberto Gómez DO Referring Provider Active Start: June 20, 2024 End: June 20, 2024 STARLA Newberry Attending Provider Active Start: June 20, 2024 End: June 20, 2024 Team Status: Inactive Member Role Status Dates Dr. Norberto Gómez DO Primary Care Provider Active Start: June 26, 2024 End: June 26, 2024 Dr. Norberto Gómez DO Referring Provider Active Start: June 26, 2024 End: June 26, 2024 Willow Barragan NP-C Attending Provider Active Start: June 26, 2024 End: June 26, 2024 Team Status: Inactive Member Role Status Dates Dr. Norberto Gómez DO Primary Care Provider Active Start: July 03, 2024 End: July 03, 2024 Dr. Norberto Gómez DO Referring Provider Active Start: July 03, 2024 End: July 03, 2024 PATRICIA NewberryC Attending Provider Active Start: July 03, 2024 End: July 03, 2024 Team Status: Active Member Role/Relationship Status Dates Dr. Gaurav Nunez DO Family Provider Active Dr. Norberto Gómez DO Primary Care Provider Active Team Status: Inactive Member Role/Relationship Status Dates Dr. Norberto Gómez DO Primary Care Provider Active Start: June 20, 2024 End: June 20, 2024 Dr. Norberto Gómez DO Referring Provider Active Start: June 20, 2024 End: June 20, 2024 Willow Barragan NP-C Attending Provider Active Start: June 20, 2024 End: June 20, 2024 Team Status: Inactive Member Role/Relationship Status Dates Dr. Norberto Gómez DO Primary Care Provider Active Start: June 26, 2024 End: June 26, 2024 Dr. Norberto Gómez DO Referring Provider Active Start: June 26, 2024 End: June 26, 2024 STARLA Newberry Attending Provider Active Start: June 26, 2024 End: June 26, 2024 Team Status: Inactive Member Role/Relationship Status Dates Dr. Norberto Gómez DO Primary Care Provider Active Start: July 03, 2024 End: July 03, 2024 Dr. Norberto Gómez DO Referring Provider Active Start: July 03, 2024 End: July 03, 2024 STARLA Newberry Attending Provider Active Start: July 03, 2024 End: July 03, 2024 Team Status: Inactive Member Role/Relationship Status Dates Dr. Norberto Gómez DO Primary Care Provider Active Start: September 11, 2024 End: September 11, 2024 Dr. Norberto Gómez DO Referring Provider Active Start: September 11, 2024 End: September 11, 2024 STARLA Newberry Attending Provider Active Start: September 11, 2024 End: September 11, 2024 Goals (unrecognized section and content) Goals may be documented in a n alternate sectionGoals may be documented in an alternate sectionGoals may be documented in an alternate sectionGoals may be documented in an alternate section FOR RECORDS PERTAINING TO PATIENTS WHO ARE OR HAVE BEEN ENROLLED IN A CHEMICAL DEPENDENCY/SUBSTANCEABUSE PROGRAM, SOME INFORMATION MAY BE OMITTED. This clinical summary was aggregated from multiple sources. Caution should be exercised in using it in the provision of clinical care. This summary normalizes information from multiple sources, and as a consequence, information in this document may materially change the coding, format and clinical context of patient data. In addition, data may be omitted in some cases. CLINICAL DECISIONS SHOULD BE BASED ON THE PRIMARY CLINICAL RECORDS. Info [facility]. provides no warranty or guarantee of the accuracy or completeness of information in this document.
[2024-09-28 11:23] VITALS: BP 120/78; PULSE 82; O2SAT 99
--- NOTE | 2024-09-28 11:36 | HP.PCM.HOS_ITS ---
HPI - General General Date of Admission: 09/28/24 Date of Service: 09/28/24 Chief Complaint: Altered mental status HPI Narrative FRANKY VILLANUEVA, is a 69 F who with past medical history is again for hypertension, dyslipidemia diabetes mellitus type 1 who was brought to the emergency department by the EMS squad. Patient's neighbor apparently called with complaint of patient acting differently and confused. Patient was brought to the emergency room subsequently workup including head CT came back unremarkable patient was already found to have slightly elevated WBC count in the urine as well as positive leukocyte esterase. Started on ceftriaxone admitted to regular nursing floor for further management [facility] Medical History Wears glasses Cancer Insulin dependent diabetes mellitus High cholesterol Easy bruising Dietary restriction Non-smoker History of stress test Hypertension Alcohol use Depression Unsteadiness Right carotid bruit Anxiety Change in bowel movement Diabetic retinopathy Diabetic neuropathy associated with type 1 diabetes mellitus Vaginal stenosis Home Medications ?Medication ?Instructions ?Recorded ?Last Taken ?Type insulin lispro 100 unit/mL 8 unit subcut TID SLIDING S SARA 06/09/21 10/20/21 History subcutaneous pen (Humalog KwikPen (U-100) Insulin) blood-glucose sensor (FreeStyle #2 ea 06/20/24 Unknown Rx Yamil 3 Plus Sensor device) blood-glucose,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,cont #1 ea 06/20/24 Unknown Rx (FreeStyle Yamil 3 Demotte) cholecalciferol (vitamin D3) 25 25 mcg PO QDAY 5 Unknown History mcg (1,000 unit) capsule insulin glargine 100 unit/mL (3 13 unit subcut QPM 03/16 Unknown History mL) subcutaneous pen (Lantus Solostar U-100 Insulin) multivitamin 1 tab PO QAM 06/20/24 Unknow n History atorvastatin 10 mg tablet 10 mg PO DAILY #90 tabs 06/20 06/14 Unknown Rx lisinopril 40 mg tablet 40 mg PO DAILY #90 tabs 06/20 06/14 Unknown Rx Allergy/AdvReac Type Severity Reaction Status Date / Time No Known Allergies Allergy Verified 09/28/24 09:27 Surgical History History of cardiac catheterization Hx of colonoscopy S/P lumpectomy of breast Social History Smoking Status: Never smoker alcohol intake: current alcohol intake frequency: 3 or more drinks per day Alcohol type: wine substance use type: does not use what type of physical activity do you participate in: none ROS ROS Narrative GENERAL: denies fever, chills, HEENT: denies headache, sinus congestion, RESPIRATORY: denies cough, sputum production, CARDIAC: denies chest pain, palpitations, orthopnea, GASTROINTESTINAL: denies abdominal pain, nausea, GENITOURINARY: denies dysuria, urgency, frequency, EXTREMITY: denies swelling MUSCULOSKELETAL: denies current joint pain or tenderness NEUROLOGIC: denies focal numbness, weakness, tingling HEMATOLOGIC: denies easy bruising and/or hemorrhage INTEGUMENT: denies rashes PSYCHIATRIC: denies suicidal or homicidal ideation Vital Signs Vital Signs Vital Signs: 09/28/24 09:24 Temperature 97.8 F Temperature Source Oral Pulse Rate 75 Respiratory Rate 18 Blood Pressure 155/57 H Blood Pressure Mean 89 Pulse Ox 100 Oxygen Delivery Method Room Air Weight Weight: 58.8 kg Body Mass Index (BMI) 21.6 Physical Exam Narrative GENERAL: Patient appears restless HEENT: Atraumatic; normocephalic EYES; Anicteric, Normal Conjunctiva NECK; supple, normal thyroid, RESPIRATORY: Diminished to auscultation CARDIOVASCULAR: Regular S1 S2, GI: soft, normoactive bowel sounds, : No Renal angle tenderness; EXTREMITIES: No edema, no clubbing, MUSCULOSKELETAL: no muscle wasting NEURO: Awake; no lateralizing signs. SKIN: No Rash PSYCH; Flat affect Results Lab / Micro Data 09/28/24 09:26 09/28/24 09:26 Labs: Laboratory Results - last 24 hr 09/28/24 09:26: WBC 6.7, RBC 3.84 L, Hgb 11.9 L, Hct 33.7 L, MCV 87.8, MCH 31.0, MCHC 35.3, RDW Std Deviation 37.6, RDW Coeff of Imelda 11.7, Plt Count 404, MPV 9.4, Immature Gran % (Auto) 0.400, Neut % (Auto) 67.4, Lymph % (Auto) 20.4, Terrell % (Auto) 10.3 H, Eos % (Auto) 0.9, Baso % (Auto) 0.6, Absolute Neuts (auto) 4.5, Absolute Lymphs (auto) 1.36, Nucleated RBC % 0, Sodium 135, Potassium 3.3, C hloride 97 L, Carbon Dioxide 23.2, Anion Gap 15, BUN 24 H, Creatinine 0.73, Estim Creat Clear Calc 56.50, Est GFR (MDRD) Non-Af 88, BUN/Creatinine Ratio 32.0 H, Glucose 119 H, Calcium 10.1, Total Bilirubin 0.50, AST 23, ALT 15, Alkaline Phosphatase 90, Total Protein 7.2, Albumin 4.2, Globulin 3.0, Albumin/Globulin Ratio 1.4, Ethyl Alcohol < 10.1 09/28/24 09:55: Urine Color Yellow, Urine Clarity Clear, Urine pH 8.0, Ur Specific [place] 1.010, Urine Protein 30 H, Urine Glucose (UA) Normal, Urine Ketones 5 H, Urine Occult Blood Negative, Urine Nitrite Negative, Urine Bilirubin Negative, Urine Urobilinogen Normal, Ur Leukocyte Esterase 500 H, Urine RBC 0 SEEN, Urine WBC 5-10 SEEN, Ur Squamous Epith Cells 0-5 SEEN, Urine Bacteria 0 SEEN, Urine Mucus 0 SEEN Rhythm Strip Rhythm Strip: Sinus Rhythm Rate: 67 Ectopy: None Imaging Radiology Impression Brain CT 09/28/24 09:36 IMPRESSION: No acute intracranial abnormalities. Chronic findings as detailed. Reading Location: [facility] Chest X-Ray 09/28/24 10:05 IMPRESSION: No acute cardiopulmonary abnormalities. Reading Location: [facility] Assessment & Plan Assessment/Plan (1) Acute UTI: (2) Adult failure to thrive: PLAN: Plan Patient is a 69-year-old lady presented with altered mental status 1. Acute metabolic encephalopathy ? Suspected to be secondary to acute cystitis admitted to regular nursing floor for treatment of underlying etiology 2. Acute cystitis ? Patient started on ceftriaxone cultures including blood and urine sent 3. Diabetes mellitus type 1 ? Patient is on long-acting insulin in addition to scheduled short acting insulin?continue home regimen placed on Accu-Cheks AC and at bedtime with sliding scale coverage 4. Physical deconditioning ? Requested for PT OT eval and certified social workers in health care to assist with discharge planning 5. Dyslipidemia ?Patient is on statin therapy, continued at home dose 6. Hypertension ? Blood pressure controlled, home medications continued with dose adjustment as needed 7. DVT prophylaxis ? On enoxaparin CODE STATUS; full Charges/Coding Visit Charges Inpatient E&M: 70595 Init Hosp L2
[2024-09-28 12:00] VITALS: BP 120/78; PULSE 82; RESP 18; TEMP 36.8; O2SAT 99
--- NOTE | 2024-09-28 12:10 | CASEMGMT ---
Care Management Face to Face with patient for initial transition planning/care coordination assessment in the ED.? 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 Patient alert and only partially oriented. Patient presented with a lot of confusion throughout the assessment. Patient willing to participate in assessment and is able to answer most questions appropriately.? Care providers, pharmacy, and demographics verified. It should be noted that prior to social worker masters meeting with patient, patient?s neighbor/friend was on her way out of patient?s room due to needing to help her grandson move to college and neighbor was observed to be very tearful and appeared to be overwhelmed with the amount of care and oversight she is providing for patient and appears to be in need of extra support. Patient?s friend stated patient should not be left home alone due to her current conditions/confusion. (end time10:56) Admitting Diagnosis: Acute UTI Other diagnosis history: Including but may not be limited to: Cancer, Insulin dependent diabetes mellitus, high cholesterol, depression, anxiety, diabetic neuropathy and diabetic retinopathy. PCP: Dr. Norberto Pabon Specialists: Channel Process Supervisor: Dr. Stallings Preferred Pharmacy: Immediate needs: [facility]; otherwise, patient?s medications are delivered via [facility]. ? Insurance: Medicare, Part A and B. Prescription Benefit: Yes Living Will/HPOA: ?I think so?; nothing on file. LNOK: Patient is a and doesn?t have any children. Patient has a stepson, 50-year-old Faheem Patterson who resides in [place], [place] who comes to see patient at least once a month to check on patient, assist patient with whatever needs she has and has lunch with patient. Patient declined to share his number and expressed a preference for Mr. Patterson not being contacted. Patient stated she will contact him should she decide to. Patient stated she has a brother, Stefan Pak who resides in [place] and a sister, Blank Avila who resides in [place]. Patient stated she doesn?t have much contact with either and didn?t know the phone numbers for her brother or sister. Living Arrangements: Patient lives alone in what may be a two-story home with a basement. Patient stated there are 3 steps leading in/out of her house from the garage with a railing and 13 steps each leading to second floor and to the basement of the house, both with railings, all of which patient stated she is able to navigate without difficulty. Patient stated she has a first-floor bedroom, bathroom and laundry and denied any current environmental barriers. 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 Patient stated her friend/neighbor, Rola, assists patient with any and all transportation needs which include but are not limited to doctor?s appointments and shopping. DME: Standard walker, shower chair, and 2 grab bars in the shower. HHC: Patient stated she?s received PT and OT within the last month from [facility] but wasn?t able to provide any details. SNF/Rehab: Denied Community Resources: Denied Behavioral Health History: Patient has a history of anxiety, depression and OCD and denied being connected to any current providers. Current concern is current memory loss/confusion/need for Alzheimer?s and/or dementia to be ruled out. Patient thought she had been at the hospital for 12 hours when she had only been at the hospital for 2 hours, was asking for things to be repeated and kept seeking clarification and was aware that she ?was confused. At one point, patient stated she thought it was Monday and shortly after, thought it was Monday. Patient goals: Patient wishes to discharge home, denies need for home health care at this time. Patient denies any further needs or concerns at this time. Motor Mechanic recommending a referral to APS to see whether or not patient has the capacity to live on her own safely once patient is medically cleared. Disposition Plan: admission to acute; RN CM/SW to follow for discharge planning needs that may arise. Lorene Suarez, YARN DUMPER, GAMING CASHIER
--- OUTSIDE RECORDS SUMMARY | 2024-09-28 12:36 | XMS RPT_ITS | CCD ---
Author Organization [facility] Care Team Providers Care Manager Poker Name Role Phone Gaurav Nunez DO Primary Care Provider Dr. Gaurav Nunez Primary Care Provider [phone] Dr. Gaurav Nunez Referring Provider [place], FOOD AND BEVERAGE ATTENDANT-C Arianna Wall Attending Provider [phone] Friend, Dr. Campos Attending Provider [phone] Friend, Dr. Campos Other Provider Gaurav Nunez DO Primary Care Provider GAURAV NUNEZ Referring Unavailable GAURAV NUNEZ Primary Care Unavailable Norberto Gómez DO Primary Care Provider Norberto Gómez DO Primary Care Provider Norberto Gómez DO Primary Care Provider [phone] Norberto Gómez DO Primary Care Provider Allen Rapp PA-C Unavailable [phone] Norberto Gómez DO Primary Care Provide r Gaurav Nunez DO Primary Care Provider NORBERTO GÓMEZ Primary Care Unavail NORBERTO Smith Primary Care Unavail NORBERTO Smith Primary Care Unavail MICHAEL Ferguson Attending UnavailDr. Norberto Theodore DO Primary Care Provider Dr. Norberto Gómez DO Referring Provider [phone] Shayna Munoz Attending Provider Willow Mccarthy Attending Provider Dalia GARCIA, Dr. Thornton Primary Care Provider Dr. Norberto Gómez DO Referring Provider [phone] ALLEN RAPP Attending Unavailable TAMELA, ALLEN Referring [...] Referring Unavailable Petrilla, Norberto Primary Care Unavailable Behrane Chen Attending Unavailable Petrilla, Norberto Referring Unavailable [...] as di rected. 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 1 each 1 06/19/2024 Active Blood-Glucose Meter,Continuous (Freestyle Yamil 3 [place]) misc (1 source) Start: 06-20-2024 Blood-Glucose Meter,Continuous (Freestyle Yamil 3 [place]) misc Active 0 .Route 1 June 20, [...] 2024 12:00am 1 sensor q 15 days Blood-Glucose,Backend Java Developer,Cont (Freestyle Yamil 3 [place]) misc (2 sources) Start: 06-20-2024 Blood-Glucose,Backend Java Developer,Cont (Freestyle Yamil 3 [place]) misc Active 0 .Route 1 0 June 20, 2024 12:00am Type 1 diabetes mellitus with hyperglycemia Type 1 diabetes mellitus with hyperglycemia As directed Start: 06-20-2024 Blood-Glucose, Backend Java Developer,Cont (Freestyle Yamil 3 [place]) misc Active 0 .Route 1 June 20, [...] every week ergocalciferol (Vitamin D-2) 1.25 MG (07657 UT) capsule Indications: Vitamin D deficiency Take [...] tablet by som th once daily. nystatin 762661 unt/ml oral suspension (4 sources) Polyene Antifungal [...] sources) Long-term current use of insulin; Translations: [supervisor intermediates (current) use of insulin] Onset: 11-14-2011 Resolved: [...] Endocrinology Visit Reporton 09-11-2024 Endocrinology Visit Report [facility] [address] [place] [address] OFFICE VISIT Date of Service: 09/11/24 MR#: [id number] Acct: [id number] Name: FRANKY VILLANUEVA Rep #: [id number] : 1955 Provider: STARLA roberto Age/Sex: 69/F Location: [facility] Status: Signed Intake Vital Signs 06/20/24 13:43 [...] 3 M FU Chief Complaint: f/u diabetes Vehicle Refinisher Required: No Accompanied by: Self Is patient in pain?: No Allergies No Known Allergies Allergy (Verified 09/11/24 08:21) Medications ???Medication ???Instructions ???Recorded ???Confirmed ???Type insulin lispro 100 unit/mL 8 unit subcut TID SLIDING SCALE 09/11/24 History subcutaneous pen (Humalog KwikPen (U-100) Insulin) blood-glucose sensor (FreeStyle #2 ea 06/20/24 09/11/24 Rx Yamil 3 Plus Sensor device) blood-glucose,nuclear cardiology technologist, cont #1 ea 06/20/24 09/11/24 Rx (FreeStyle Yamil 3 [place]) cholecalciferol (vitamin D3) 25 25 mcg PO [...] palpation inspecti (more content not included)... Normal [facility] 36on 08-16-2024 36 Patient called requesting results of recent lab results. Provided patient with results per note from Dr. Garner as follows: Your vaginal swab was negative for yeast and Gardnerella, bacterial vaginosis. Patient understands results and declined scheduling a follow-up visit at this time. Normal [facility] Office Visiton 08-14-2024 Follow-up visit [id number] Franky Villanueva 1955 F Date Provider Department Center 08/14/2024 [id number] GARNER [facility] OB None Family History Problem Relation Age of Onset Other Mother Comments: in 90s Coronary artery disease Father Comments: acute [place], at age 94 No Known Problems Sister Parkinsonism Brother 75 Breast cancer Mother's Sister Family Status - Relation Status Age at Mother Father Sister Alive Brother Alive Mother's Sister Level of Service:34090 HI OFFICE/OUTPATIENT ESTABLISHED [facility] 10 MIN Reason for Visit and Comments: Vaginal Discharge [360987] - Vaginal odor and discharge Normal [facility] [...] Medical History: Diagnosis Date Anxiety and depression shelter prozac Breast cancer screening by mammogram 03/2024 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 Burrell Essential hypertension 2009 nml ECHO 2023 H/O colonoscopy 09/2021 Dr. Олег boone ds, due 2031 History of herpes genitalis History of right breast cancer 2004 s/p lumpectomy Hx antineoplastic chemo Hypercholesterolemia Osteopenia 02/2022 at [facility], FRAX 1.7%/14% Personal history of irradiation Type 1 diabetes mellitus (HCC) [facility] Past Surgical History: Procedure Laterality Date BREAST LUMPECTOMY Right 2004 [place] Breast COLONOSCOPY 09/2021 Dr. Олег boone ds- due 2031 COLONOSCOPY 2006 ESOPHAGOGASTRODUODENOSC OPY 09/2021 Esophageal candidiasis [3] Family History Problem Relation Name Age of Onset Other Mother in 90s Coronary artery disease Father acute [place], at age 94 No Known Problems Sister [...] mouth., Disp: , Rfl: Sure Comfort Pen [place] 31G X 8 MM [facility] [...] capsule, Rfl: [address] [facility] Progress Note Batch Unloader was offere d to 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 Patient declined offer of asphalt tamper [facility] 36on 07-08-2024 36 S: Patient spoke wit h [facility] nurse regarding vaginal odor and discharge. [...] school, work, or sleep) Protocols used: Vaginal Frafkkqn-PTISD-FM [facility] 36 Name of caller: Cyndee Contact phone number: [phone] Relationship to Patient: Hillary [facility] Occupational Therapy Provider: Dr. Gómez Practice: [facility] [...] Office Visit Reporton [address] [facility] [address] [place] [address] OFFICE VISIT Date of Service: 07/03/24 MR#: [id number] Acct: [id number] Patient: FRANKY VILLANUEVA Rep #: [id number] : 1955 Provider: STARLA roberto Age/Sex: 69/F Location: [facility] Status: Signed Intake Vital Signs 06/20/24 13:43 [...] Miller Signature: Date (if applicable) CC: Normal [facility] PELVIS TRANSVAGINALon US PELVIS TRANSVAGINAL ------ - Gynecological Report (Signed Final 06/27/2024 07:06 am) - PATIENT INFO: ID #: [id number] : [birth year] (69 yrs)(F) Name: FRANKY VILLANUEVA Visit Date: 06/26/2024 09:43 am - PERFORMED BY: Attending: Loco Ramirez MD Performed By: Kuldeep Pope RDMS Referred By: PRISCA GARNER Location: [facility] - SERVICE(S) PROVIDED: Investigation Division Lieutenant Transvaginal 24118 - INDICATIONS: Postmenopausal bleeding N95.0 - TECHNIQUE/SCAN [...] ultrasound. *Ultrasound cannot detect all pelvic or SEWAGE SCREEN OPERATOR abnormalities and normal findings cannot guarantee the absence of a problem.* Normal [facility] Office Visiton 06-26-2024 Follow-up visit [id number] Franky Villanueva 1955 F Date Provider Department Center 06/26/2024 [id number] GARNER [facility] OB None Family History Problem Relation Age of Onset Other Mother Comments: in 90s Coronary artery disease Father Comments: acute [place], at age 94 No Known Problems Sister Parkinsonism Brother 75 Breast cancer Mother's Sister Family Status - Relation Status Age at Mother Father Sister Alive Brother Alive Mother's Sister Level of Service:05079 HI OFFICE/OUTPATIENT ESTABLISHED [facility] 10 MIN Reason for Visit and Comments: Follow-up [689043] [facility] Progress Noteon 06-26-2024 Progress Note Chief Complaint Patient presents with Follow-up HPI: Patient is here today to discuss ultrasound. 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 Burrell Essential hypertension 2009 nml ECHO 2023 H/O colonoscopy 09/2021 Dr. Олег jean baptiste, due 2031 History of herpes genitalis History of right breast cancer 2004 s/p lumpectomy Hx antineoplastic chemo Hypercholesterolemia Osteopenia 02/2022 at [facility], FRAX 1.7%/14% Personal history of irradiation [facility] Past Surgical History: Procedure Laterality Date BREAST LUMPECTOMY Right 2005 [place] Breast COLONOSCOPY 09/2021 Friend- divert ds- due 2031 COLONOSCOPY 2006 ESOPHAGOGASTRODUODENOSC OPY 09/2021 Esophageal candidiasis Family History Problem Relation Name Age of Onset Other Mother in 90s Coronary artery disease Father acute [place], at age 94 No Known Problems Sister [...] mouth., Disp: , Rfl: Sure Comfort Pen [place] 31G X 8 MM [facility] [...] time. Patient reassured [facility] 36on 06-24-2024 36 Name of caller: Cyndee Contact phone number: [phone] Relationship to Patient: [facility] Occupational [...] their call: N/A [facility] CNPNon 06-20-2024 CNPN Telephone (EMQ) FRANKY VILLANUEVA ([id number]) 1955 [facility] Date Time Provider Department 06/20/24 MICHAEL RODRIGUEZ EMQ During your visit today, we recorded the following information about you: Nazia Hanley 06/20/2024 11:20 AM Signed Initiated PA for Blood-Glucose Sensor (DEXCOM G7 SENSOR) through [employer] Questions Completed/attached notes Waiting for determination Nazia Casanova Prior [facility] Endocrinology [facility] Met[facility] [place] Allergies As of Date: 06/20/2024 (No Known Allergies) Date Reviewed: 06/19/2024 Reviewed by: Mary Guzman MA - Fully Assessed Reason for Visit: Insurance Authorization [[id number]] Cmt: (DEXCOM G7 SENSOR) Prescriptions as of 06/20/2024 - Blood-Glucose Sensor (DEXCOM G7 SENSOR) arturo For continuous glucose monitoring. - Blood-Glucose Meter,Continuous (DEXCOM G7 ADDRESSING MACHINE OPERATOR) misc For continuous glucose monitoring. - indapamide [...] Status:Closed by NAZIA HANLEY on 06/20/24 Normal [facility] Endocrinology Visit Reporton 06-20-2024 Endocrinology Visit Report [facility] [address] [place] [address] OFFICE VISIT Date of Service: 06/20/24 MR#: [id number] Acct: [id number] Name: FRANKY VILLANUEVA Rep #: [id number] : 1955 Provider: STARLA roberto Age/Sex: 69/F Location[facility] Status: Signed Intake Vital Signs 05/27/23 12:50 [...] ea 06/20/24 06/20/24 Rx (FreeStyle Yamil 3 [place]) blood-glucose sensor (FreeStyle #2 ea 06/20/24 06/20/24 [...] acute distress (more content not included)... Normal [facility] Laboratory - Hematology and Cell countsOrdered By: Willow Barragan on 06-20-2024 HbA1c (Bld) [Mass fraction] 9.3 % High 4.2-6.3 [facility] CNOVon 06-19-2024 CNOV Office Visit (ENDMED ) FRANKY VILLANUEVA ([id number]) 1955 [facility] Date Time Provider Department 06/19/24 10:20 AM [...] control. Hyperlipidemi (more content not included)... Normal [facility] HEMOGLOBIN A1C (POC)on 06-19 HbA1c (Bld) [Mass fraction] 9.1 % Abnormal 4.3 - 5.6 % [facility] Comment on above: Location:[facility], [address] [place], [address] Point of care (POC) Hemoglobin A1c (HGBA1C) [...] specific diabetes management situations: The POC device lockstitch cup setter provides a normal range of 4.2% to 6.5% for the HGBA1C POC test. However, the [place] [employer] guidelines indicate that patients with [...] Interpretation and review of laboratory results Abnormal [facility] 06-05-2024 36 Name of caller: Ken Contact phone number: [phone] Relationship to Patient: [facility] Provider: Dalia Practice: [facility] Beltran Chief [...] Name of caller: Franky Contact phone number: [phone] Relationship to Patient: patient Provider: Pascual Practice: [...] Ql (Vag fld) Not detected NOT DETECTED [facility] Comment on above: Theresa species C. albicans, C. tropicalis, C. parapsilosis, and/or C. dubliniensis can be detected, but not differentiated, in the Theresa spp. result. Theresa sp rRNA Probe Ql (Vag fld) Not detected NOT DETECTED [facility] Lactobacillus crispatus+gasseri+jense angela + Gardnerella vaginalis + Atopobium vaginae rRNA STUART+probe Ql (Vag fld) Negative NEGATIVE [facility] T. vaginalis rRNA STUART+probe Ql (Unsp spec) Not detected NOT DETECTED [facility] Office Visiton 05-29-2024 Follow-up visit [id number] Franky Villanueva 1955 F Date Provider Department Center 05/29/2024 [id number] GARNER [facility] OB None Family History Problem Relation Age of Onset Other Mother Comments: in 90s Coronary artery disease Father Comments: acute [place], at age 94 No Known Problems Sister Parkinsonism Brother 75 Breast cancer Mother's Sister Family Status - Relation Status Age at Mother Father Sister Alive Brother Alive Mother's Sister Level of Service:02297 HI INITIAL PREVENTIVE MEDICINE NEW PATIENT 64YRS&> Reason [...] Date of Last Bone Density: 02/2022 at 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 Burrell Essential hypertension 2009 nml ECHO 2023 H/O colonoscopy 09/2021 Dr. Олег boone ds, due 2031 History of herpes genitalis History of right breast cancer 2004 s/p lumpectomy Hx antineoplastic chemo Hypercholesterolemia Osteopenia 02/2022 at [facility], FRAX 1.7%/14% Personal history of irradiation Type 1 diabetes mellitus (HCC[facility] Past Surgical History: Procedure Laterality Date BREAST LUMPECTOMY Right 2004 [place] Breast COLONOSCOPY 09/2021 Dr. Олег boone ds- due 2031 COLONOSCOPY 2006 ESOPHAGOGASTRODUODENOSC OPY 09/2021 Esophageal candidiasis Family History Problem Relation Name Age of Onset Other Mother in 90s Coronary artery disease Father acute [place], at age 94 No Known Problems Sister [...] PO) Take by mouth. 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 Scar on right breast in UOQ, mildly tender to palpation on (more content not included)... [facility] 36on 05-20-2024 36 Placed call to radha nt. Two patient identifers confirmed. Was able to speak to patient. All concerns in message have been addressed. No questions at this time. Call ended [facility] 36 Name of caller: Arina Contact phone number: [phone] Relationship to Patient: Arina Thornton [facility] Provider: Dalia Practice: [facility] Chief Complaint/Reason for Call: Arina states she [...] business hours to return their call: Yes [place] [address] Name of Caller: Milo corrina Contact option [...] patient an appointment. Please review. Office Name: [facility] 36 Name of caller: Franky Villanueva Contact phone number: [phone] Relationship to Patient: patient Provider: Dr. Gómez Practice: [facility] Chief Complaint/Reason for Call: Patient requested the referral to Endocrinology be faxed to Dr. Stallings's office, fax number [phone], I did fax the referral. FYI, thank you. Best time of day caller can be reached: Any Patient advised that office/PCP has 24-48 business hours to return their call: N/A [facility] 3605-19-2024 36 S: Patient spoke lashell RANDOLPH [...] to answer question Protocols used: Medication Question [facility] 05-17-2024 36 To Felecia to follow up [facility] 36 Name of caller: Carly yevgeniy Contact phone number: [phone] Relationship to Patient: [facility] social media sr strategy manager Provider: Dr Gómez Practice: [facility] Chief Complaint/Reason for Call: Caller reporting that [...] their call: No [facility] 36 Name of caller: Franky Contact phone number: [phone] Relationship to Patient: patient Provider: Dr. Gómez Practice: [facility] Chief Complaint/Reason for Call: Franky is calling to ask if the referral to Dr. Jose Stallings in [place] can be faxed to her office at . Please advise. Best time of day caller can be reached: Any Patient advised that office/PCP has 24-48 business hours to return their call: No [facility] 2905-16-2024 29 Addended by: NORBERTO LAWLER on: 05/16/2024 11:16 AM Modules accepted: Orders [facility] Addended by: ARIANNA CARTY on: 05/16/2024 10:02 AM Modules accepted: Orders [facility] 36on 05-16-2024 36 Natasha was left a detailed message and to call the office if any questions. [facility] 36 S: [facility] clinical retention manager spoke with CAC nurse regarding medication question B: Onset of symptoms/concern toay A: Patient needs and verbal order for Tylenol 500 MG 2 tablets TID daily. Patient has on her medication profile and has been taking it. Call Natasha [phone]. R: Informed message would be sent to provider for review. No further needs at this time. Reason for Disposition Caller has NON-URGENT medicine question about med that PCP or specialist prescribed and triager unable to answer question Protocols used: Medication Question [id number] [facility] 36 Name of caller: Franky Relationship to patient: patient Contact phone number: [phone] Speciality referral requested for: Endocrinology Diagnosis or reason for referral: diabetes Name of specialist: Dr Radha Stallings in [facility] Fax number [phone] Name of group/practice: NA Patient verified insurance covers referral: Yes Patient insurance: Med A and B Has patient seen this specialist in the past: No Estimated time/date patient last saw the specialist: na Patient is requesting a call when referral is complete. [facility] CNPNon 05-15-2024 CNPN Telephone (NeedFeed) FRANKY VILLANUVEA ([id number]) 1955 F [facility] Date Time Provider Department 05/15/24 MICHAEL RODRIGUEZ During your visit today, we recorded the following information about you: Aby Lockhart MA 05/15/2024 2:21 PM Signed Received office notes from [facility]. Dr. Gómez is asking for a [...] (3 mL) (Discontinued) (more content not included)... [address] 05-14-2024 36 Called Markus and left a voicemail for verbal ok on orders and he can call us back if orders need to be written and posted. [place] [address] Name of caller: Markus Contact phone number: [phone] Relationship to Patient: [facility] Care Provider: Dr. Gómez Practice: [facility] [...] their call: Yes [facility] 36 Orders faxed [place] [address] Patient has 2 orders in chart. Please verify which order needs faxed. [place] [address] Name of caller: Dahiana monroy Contact phone number: [phone] Relationship to Patient: [facility] Provider: Dr. Gómez Practice: [facility] Chief Complaint/Reason for Call: Pt is starting PT today. Leslie needs a copy of pt's order signed by Dr. Gómez. F: [phone] Please advise Best time of day caller [...] CNPNon 05-10-2024 CNPN Telephone (ENDMED) FRANKY VILLANUEVA ([id number]) 1955 F [facility] Date Time Provider Department 05/10/24 MICHAEL RODRIGUEZ During your visit today, we recorded the following information about you: Aby Lockhart MA 05/10/2024 11:23 AM Signed Received lab results from [facility]. Placed on docs desk for review. Please advise, thanks. Michael Rodriguez MD 05/10/2024 1:48 PM Signed Reviewed. Allergies As of Date: 05/10/2024 (No Known Allergies) Date Reviewed: 06/16/2023 Reviewed by: Aby Lockhart MA - Fully Assessed Reason for Visit: Results [95] Cmt: [facility] Prescriptions as of 05/13/2024 - blood sugar [...] Encounter Status:Closed by MICHAEL RODRIGUEZ on 05/10/24 [facility] 05-09-2024 36 Left message for linn gonzáles to return my call. [facility] 05-08-2024 36 Name of caller: Dahiana monroy Contact phone number: [phone] Relationship to Patient: [facility] Care Provider: Dr. Gómez Practice: [facility] Chief Complaint/Reason for Call: Leslie called in requesting uncontrolled diabetes orders for snf and PT. States verbal orders were called in but they need the orders signed/ dated and faxed over to start. States if they receive the information by tomorrow they can get patient started on Monday next week. States they also need to know who patient's fish frog or oyster farmer is. . Please Advise Best time of day caller can be reached: any Patient advised that office/PCP has 24-48 business hours to return their call: No [place] [address] Spoke with leslie connor all was addressed [place] [address] Name of caller: Dahiana eliana Contact phone number: [phone] Relationship to Patient: [facility] Provider: Dalia Practice: [facility] Chief Complaint/Reason for Call: Asking for an order to start home health with nursing and also uncontrolled diabetes. Needs updated on her order. Please Advise. Best time of day caller can be reached: Any Patient advised that office/PCP has 24-48 business hours to return their call: Yes [place] [address]on 05-07-2024 36 Transferred to [facility] t notes [place] [address] Message released to patient as written. Patient's further questions if applicable: Patient has an Endo appt - first available - early July. Please send labs to Records And Tape Recordings Engineer and please advise if patient should be seen sooner. Were all questions from office addressed or relayed to the patient from encounter: Yes [place] [address]on 05-06-2024 36 Placed call to radha nt. Unable to reach them by phone to discuss lab results. Left detailed message to return call to discuss results. Please release information to patient [place] [address] ----- Message from Leslie Spring sent at 05/06/2024 7:38 AM EDT ----- ----- Message ----- From: Norberto Gómez DO Sent: 05/05/2024 5:54 PM EDT To: [facility] Clinical Staff Interpreter CBC including B12 levels are normal. Her [...] a copy of this lab to her fish frog or oyster farmer, Dr. Rodriguez [facility] 36on 05-03-2024 36 S: The patient is calling the [facility] about the Cymbalta B: She is asking about frequency R: The instructions read twice daily - this would be about 12 hours apart. I would take one in the morning and then again in the evening. Reason for Disposition ? Pharmacy calling with prescription question and triager answers question Protocols used: Medication Question Spji-[facility]-DG [facility] 36on 05-02-2024 36 Records and referral faxed [facility] 36 Name of caller: Linnflorian monroy Contact phone number: [phone] Relationship to Patient: [facility] Provider: Practice: [facility] Chief Complaint/Reason for Call: Caller is asking for Face Sheet and office notes from last visit along with insurance information please fax to [phone] Best time of day caller can be reached: any Patient advised that office/PCP has 24-48 business hours to return their call: No [facility] CBC W Auto Differential pane l (Bld)on 04-30-2024 Basophils (Bld) [#/Vol] 46 10*3/uL [facility] Basophils/100 WBC (Bld) 0.5 % [facility] Eosinophils (Bld) [#/Vol] 46 10*3/uL [facility] Eosinophils/100 WBC (Bld) 0.5 % [facility] Erythrocyte distribution width (RBC) [Ratio] 11.4 % 11.0 - 15.0 % [facility] Hematocrit (Bld) [Volume fraction] 35.4 % 35.0 - 45.0 % [facility] Hemoglobin (Bld) [Mass/Vol] 11.8 g/dL 11.7 - 15.5 g/dL [facility] Lymphocytes (Bld) [#/Vol] 719 10*3/uL Low [facility] Lymphocytes/100 WBC (Bld) 7.9 % [facility] MCH (RBC) [Entitic mass] 31.1 pg 27.0 - 33.0 pg [facility] MCHC (RBC) [Mass/Vol] 33.3 g/dL 32.0 - 36.0 g/dL [facility] Comment on above: For adults, a slight decrease in the calculated MCHC value (in the range of 30 to 32 g/dL) is most likely not clinically significant; however, it should be interpreted with caution in correlation with other red cell parameters and the patient's clinical condition. MCV (RBC) [Entitic vol] 93.4 fL 80.0 - 100.0 fL [facility] Monocytes (Bld) [#/Vol] 1037 10*3/uL High [facility] Monocytes/100 WBC (Bld) 11.4 % [facility] Neutrophils (Bld) [#/Vol] 7253 10*3/uL [facility] Neutrophils/100 WBC (Bld) 79.7 % [facility] Platelet mean volume (Bld) [Entitic vol] 9.9 fL 7.5 - 12.5 fL [facility] Platelets (Bld) [#/Vol] 416 10*3/uL High [facility] RBC (Bld) [#/Vol] 3.79 10*6/uL Low [facility] WBC (Bld) [#/Vol] 9.1 10*3/uL [facility] Basophils (Bld) [#/Vol] 46 10*3/uL [facility] Basophils/100 WBC (Bld) 0.5 % [facility] Eosinophils (Bld) [#/Vol] 46 10*3/uL [facility] Eosinophils/100 WBC (Bld) 0.5 % [facility] Erythrocyte distribution width (RBC) [Ratio] 11.4 % 11.0 - 15.0 % [facility] Hematocrit (Bld) [Volume fraction] 35.4 % 35.0 - 45.0 % [facility] Hemoglobin (Bld) [Mass/Vol] 11.8 g/dL 11.7 - 15.5 g/dL [facility] Interpretation and review of laboratory results Abnormal [facility] Lymphocytes (Bld) [#/Vol] 719 10*3/uL Low [facility] Lymphocytes/100 WBC (Bld) 7.9 % [facility] MCH (RBC) [Entitic mass] 31.1 pg 27.0 - 33.0 pg [facility] MCHC (RBC) [Mass/Vol] 33.3 g/dL 32.0 - 36.0 g/dL [facility] Comment on above: For adults, a slight decrease in the calculated MCHC value (in the range of 30 to 32 g/dL) is most likely not clinically significant; however, it should be interpreted with caution in correlation with other red cell parameters and the patient's clinical condition. MCV (RBC) [Entitic vol] 93.4 fL 80.0 - 100.0 fL [facility] Monocytes (Bld) [#/Vol] 1037 10*3/uL High [facility] Monocytes/100 WBC (Bld) 11.4 % [facility] Neutrophils (Bld) [#/Vol] 7253 10*3/uL [facility] Neutrophils/100 WBC (Bld) 79.7 % [facility] Platelet mean volume (Bld) [Entitic vol] 9.9 fL 7.5 - 12.5 fL [facility] Platelets (Bld) [#/Vol] 416 10*3/uL High [facility] RBC (Bld) [#/Vol] 3.79 10*6/uL Low [facility] WBC (Bld) [#/Vol] 9.1 10*3/uL [facility] Comprehensive metabolic 1998 panelon 04-30-2024 Albumin [Mass/Vol] 4 g/dL 3.6 - 5.1 g/dL [facility] Albumin/Globulin [Mass ratio] 1.4 {ratio} [facility] ALP [Catalytic activity/Vol] 93 U/L 37 - 153 U/L [facility] ALT [Catalytic activity/Vol] 12 U/L 6 - 29 U/L [facility] AST [Catalytic activity/Vol] 14 U/L 10 - 35 U/L [facility] Bilirubin [Mass/Vol] 0.5 mg/dL 0.2 - 1 .2 mg/dL [facility] Calcium [Mass/Vol] 9.4 mg/dL 8.6 - 10. 4 mg/dL [facility] Chloride [Moles/Vol] 85 mmol/L Low 98 - 11 0 mmol/L [facility] Comment on above: Verified by repeat a nalysis. CO2 [Moles/Vol] 27 mmol/L 20 - 32 mmol/L [facility] Creatinine [Mass/Vol] 0.76 mg/dL 0.60 - 1.00 mg/dL [facility] GFR/1.73 sq M.predicted among non-blacks MDRD (S/P/Bld) [Vol rate/Area] 84 mL/min/{1.73_m2} > OR = 60 mL/min/1.73m 2 [facility] Globulin (S) [Mass/Vol] 2.8 g/dL [facility] Glucose [Mass/Vol] 416 mg/dL High 65 - 99 mg/dL [facility] Comment on above: Verified by repeat a nalysis. Fasting reference interval For someone without known diabetes, a glucose value >125 mg/dL indicates that they may have diabetes and this should be confirmed with a follow-up test. Potassium [Moles/Vol] 4.2 mmol/L 3.5 - 5.3 mmol/L [facility] Protein [Mass/Vol] 6.8 g/dL 6.1 - 8.1 g/dL [facility] Sodium [Moles/Vol] 130 mmol/L Low 135 - 146 mmol/L [facility] Urea nitrogen [Mass/Vol] 19 mg/dL 7 - 25 mg/dL [facility] Urea nitrogen/Creatinine [Mass ratio] SEE NOTE: [facility] Comment on above: Not Reported: BUN an d Creatinine are within reference range. No Panel Informationon 04-30 Interpretation and review of laboratory results Abnormal [facility] Vitamin B12on 04-30-2024 Cobalamin (Vitamin B12) [Mass/Vol] 839 pg/mL 200 - 1100 pg/mL [facility] Office Visiton 04-29-2024 Follow-up visit [id number] Franky Villanueva 1955 F Date Provider Department Center 04/29/2024 [id number] GÓMEZ [facility] Family History Problem Relation Age of Onset Other Mother Comments: in 90s Coronary artery disease Father Comments: acute [place], at age 94 No Known Problems Sister Parkinsonism Brother 75 Breast cancer Mother's Sister Family Status - Relation Status Age at Mother Father Sister Alive Brother Alive Mother's Sister Level of Service:21853 HI OFFICE/OUTPATIENT ESTABLISHED HIGH MDM 40 MIN Reason for Visit and Comments: Difficulty Walking [[id number]] - Weak and unsteady on feet , would like life alert Eye Problem [43] - X 2 days both Normal [facility] Progress Noteon 04-29-2024 Progress Note [facility] [address] [place] [address] Visit type: Established Patient Reason for [...] Physical deconditioning Comments: Multifactorial, therapy referral, possible forming acid dumper reevaluation Other orders - DULoxetine (Cymbalta) 30 [...] PO) Take by mouth. Sure Comfort Pen [place] 31G X 8 MM misc triamcinolone (Kenalog) [...] content not included)... [facility] 04-24-2024 36 S: Patient's friend, Rola spoke with [facility] nurse regarding overall decline. B: Onset [...] or getting worse Protocols used: Falls and Jftvxmt-LAOIC-SK [facility] 04-19-2024 36 Name of Caller: Franky Relationship to Patient: Patient Contact phone number: [phone] Best time of day caller can be [...] Relationship to Patient: Patient Contact phone number: [phone] Best time of day caller can be [...] MD Electronically Signed Date/Time: 04/16/2024 1:05 PM [facility] RADIOLOGY [facility] Patient Name: FRANKY VILLANUEVA : 1955 Exam Date/Time: 04/16/2024 09:57 Procedure: BI MAMMOGRAM SCREENING TOMOSYNTHESIS BILATERAL Ordering Provider: GÓMEZ EUGENE Reason For Exam: This exam was performed at [place] [address] [address] [facility] [address] PATIENT CANCER HISTORY: No Personal History of Cancer FAMILY CANCER HISTORY: Maternal Aunt Breast Cancer Image views: 2D Bilateral CC and MLO views were acquired. 3D Bilateral CC and MLO views were acquired. Images were reviewed with CAD. Markings on images: BB's = Nipples; skin lesions Open tatitlek = Palpable Line = Scar COMPARISON: 09/17/2018, 10/05/2020, 06/20/2022 TISSUE DENSITY: BIRADS C - The breasts are heterogeneously dense, which may obscure small masses. FINDINGS: Postsurgical changes are present on the right. No suspicious masses, architectural distortions or suspiciously clustered microcalcifications are identified. There is no evidence of skin thickening or nipple retraction. There are no significant changes when compared with prior studies. [facility] RADIOLOGY SYSTEM Martina Osorio MD - 04/16/2024 Patient Name: FRANKY VILLANUEVA : 1955 Exam Date/Time: 04/16/2024 09:57 Procedure: BI MAMMOGRAM SCREENING TOMOSYNTHESIS BILATERAL Ordering Provider: GÓMEZ EUGENE Reason For Exam: This exam was performed at [address] [address] PATIENT CANCER HISTORY: No Personal History of Cancer FAMILY CANCER HISTORY: Maternal Aunt Breast Cancer Image views: 2D Bilateral CC and MLO views were acquired. 3D Bilateral CC and MLO views were acquired. Images were reviewed with CAD. Markings on images: BB's = Nipples; skin lesions Open tatitlek = Palpable Line = Scar COMPARISON: 09/17/2018, [...] Electronically Signed Date/Time: 04/16/2024 1:05 PM EST [facility] Radiology Study observation (narrative) [facility] DBT Breast - bilateral scree ningOrdered By: Martina Osorio on 04-16-2024 [facility] Work Phone: Progress Noteon 04-16-2024 Progress Note Second blood pressur e reading near goal so continue meds as is. Checkup with me in 3 to 4 months. Most importantly follow-up with fish frog or oyster farmer to try to obtain optimal diabetic control. [facility] Progress Note [address] [facility] [address] @[email or web address] Patient arrived for nurse [...] [facility] Progress Note Pt aware. [facility] 36on 03-20-2024 36 Orders pended for doctor signature [facility] 36 ----- Message from Sayda Spring sent [...] if she agrees [facility] 37on 03-20-2024 37 Wear support hose as discussed. Recheck blood pressure with staff in 4 weeks. Call in 4 to 5 weeks in the no better in mood and motivation we will increase Prozac at that time Normal [facility] Office Visiton 03-20-2024 Follow-up visit [id number] KayFranky 1955 F [facility] Provider Department Center 03/20/2024 [id number] GÓMEZ [facility] Family History Problem Relation Age of Onset Other Mother Comments: in 90s Coronary artery disease Father Comments: acute [place], at age 94 No Known Problems Sister Parkinsonism Brother 75 Breast cancer Mother's Sister Family Status - Relation Status Age at Mother Father Sister Alive Brother Alive Mother's Sister Level of Service:23049 HI OFFICE/OUTPATIENT ESTABLISHED MOD MDM 30 MIN Reason for Visit and Comments: Follow-up [275846] - Med Check Foot Swelling [056311] Normal [facility] Progress Noteon 03-20-2024 Progress Note [facility] - [address] [facility] [address] Visit type: Established Patient Reason [...] and venous Dopplers. Saw vascular clinic in [place] a few days ago. No surgical intervention [...] PO) Take by mouth. Sure Comfort Pen [place] 31G X 8 MM [facility] [...] in 90s Coronary artery disease Father acute [place], at age 94 No Known Problems Sister [...] now she would like to see the railroad police officer. R: scheduled new patient appointment with Dr. Mariam Garner at [facility] on 04/10 at 9:45 address and phone number given to patient. Pt advised to call back with worsening of symptoms, concern or questions. Pt verbalized understanding. Reason for Disposition Localized rash present > 7 days Protocols used: Rash or Redness - [id number]-AH [facility] MR/BMS.BVSon 03-05-2024 MR/BMS.BVS [facility] Vascular Surgery [address] [place] [address] OFFICE VISIT Date of Service: 03/05/24 MR#: [id number] Acct: [id number] Name: FRANKY VILLANUEVA Rep #: [id number] : 1955 Provider: MAHSA Tejada Age/Sex: 68/F Location: [facility] Status: Signed Intake Vital Signs 05/27/23 [...] abnormal speech, (more content not included)... Normal [facility] Lower Ext Art Exam w/o Exerc brunilda 01-11-2024 Lower Ext Art Exam w/o Exercis [facility] [address] [place] [address] Lower Ext Art Exam w/o Exercis 01/11/24 0903 MR#: [id number] Acct: [id number] Name: FRANKY VILLANUEVA Rep #: [id number] : 1955 68 From: Berhane Chen MD Attending Dr: MAHSA Tejada Status: REG CLI Ordering Dr: Shayna Villarreal Date: 01/11/24 Location: [facility] Sex: F C Admitted: Reason For [...] diminished, pedal/digit disease vs spasm. Ordering Physician: Shayna Villarreal Referring Physician: Norberto Gómez Performed By: Tiffanie Diaz Anupama 01/11/24 1115 Date Berhane Chen MD CC: MAHSA Tejada; Dr. Norberto Gómez DO Date Dictated: 01/11/2403 Date Transcribed: 01/11/241114 Planting Machine Crewman: Signed Normal [facility] Venous Duplex US - Dick [facility] 01-11-2024 Venous Duplex US - Dick Extrem [facility] Cardiovascular Services [address] [place] [address] Venous Duplex US - Dick Extrem 01/11/24 0918 MR#: [id number] Acct: [id number] Name: FRANKY VILLANUEVA Rep #: [id number] : 1955 68 From: Berhane Chen MD [...] DO Date Dictated: 01/11/24917 Date Transcribed: 01/11/241117 Planting Machine Crewman: [facility] MR/BMS.CHRISTINASon 12-28-2023 MR/BMS.BVS [facility] [address] [place] [address]. [address] [place] [address] OFFICE VISIT Date of Service: 12/28/23 MR#: [id number] Acct: [id number] Name: FRANKY VILLANUEVA Rep #: [id number] : 1955 Provider: MAHSA Tejada Age/Sex: 68/F Location: [facility] Status: Signed Intake Vital Signs 05/27/23 [...] you fallen in the past year?: Yes [facility] Medical History (Updated 12/28/23 @ 14:34 by [...] cold intolerance S (more content not included)... [facility] 11-16-2023 36 Spoke with patient s he does not want OT she wants some who specializes in lymphedema [facility] 11-15-2023 36 Name of caller: franky Contact phone number: [phone] Relationship to Patient: patient Provider: dalia Practice: [facility] Chief Complaint/Reason for Call: Pt states is needing a referral to a doctor in [place] that is M.D with a specialty of lymphedema. Please advise. Best time of day caller can be reached: AM Patient advised that office/PCP has 24-48 business hours to return their call: Yes [facility] 36 Name of caller: Franky Contact phone number: [phone] Relationship to Patient: patient Provider: Dr. Gómez Practice: Chief Complaint/Reason for Call: PT would like to talk to the office basil to discuss her referral the was updated in her records. Peripheral edema Best time of day caller can be reached: any Patient advised that office/PCP has 24-48 business hours to return their call: No [place] 9419211-10-2023 36 Name of caller: Franky Contact phone number: [phone] Relationship to Patient: patient Provider: Practice: [facility] Chief Complaint/Reason for Call: Patient calling and states her referral to OT, needs to say Lymphedema specialist specifically. Please send new referral. Best time of day caller can be reached: any Patient advised that office/PCP has 24-48 business hours to return their call: no [address] 11-08-2023 36 Recent Visits Date Type Provider Dept 09/28/23 Office Visit Norberto Gómez DO [facility] 07/20/23 Office Visit Allen Rapp PA-C [facility] 07/12/23 Office Visit Norberto Gómez DO [facility] 05/30/23 Office Visit Norberto Gómez DO [facility] Showing recent visits within past 365 days and meeting all other requirements Future Appointments Date Type Provider Dept 01/11/24 Appointment Norberto Gómez DO [facility] Showing future appointments within next 90 days [...] chart? Yes None [facility] 36on 11-05-2023 36 Name of caller: Franky Contact phone number: [phone] Relationship to Patient: patient Provider: Dr Gómez Practice: [facility] Chief Complaint/Reason for Call: Patient Franky Villanueva called in asking if Dr Gómez can write a referral for her to go to a lymphedema clinic and if possible a clinic in or close to the [facility]. Please advise. Best time of day caller can be reached: any Patient advised that office/PCP has 24-48 business hours to return their call: N/A [facility] 36on 10-19-2023 36 Placed call to radha last. Two patient identifers confirmed. Was able to speak to patient. All concerns in message have been addressed. No questions at this time. Call ended [facility] 36 Script sent if not better should followup with PCP dr gómez [facility] 36 S-Pt states she has taken the full Rx 7 days of Metronidazole and is not any better and would like to know if she can take another 7 pills that she has left over from the original Rx . (Pharmacy originally gave her 7 tabs, the office ordered Rx with 14) R-Please call patient @ [phone] [facility] 36 Reason for Dispositi on [1] Caller has NON-URGENT medicine question about med that PCP prescribed AND [2] triager unable to answer question Answer Assessment - Initial Assessment Questions . Protocols used: Medication Question [facility] (1[facility] - PTon 10-18-2023 Inital Evaluation (1) - PT [facility] Physical Therapy [facility] [address] [place] [address] [address] [place] [address] / REHABILITATION SERVICES INITIAL EVALUATION MR#: [id number] Acct: [id number] Name: FRANKY VILLANUEVA Rep #: [id number] : 1955 68 From: Pj David DPT [...] and approve (more content not included)... Normal [facility] Basic metabolic 2000 panelon 10-17-2023 Anion gap [Moles/Vol] 10 mmol/L Normal 8-15 [facility] Comment on above: Order Comment: Speci men Type: BLOOD SPECIMEN Ordering Facility: [facility] Address: [address] [place] [address] Performed By: #### 2 4321-2 #### [facility] CLIA [id number] [address] [place] [address] [place] Calcium [Mass/Vol] 9.8 mg/dL Normal 8.5-10.2 [facility] Comment on above: Order Comment: Speci men Type: BLOOD SPECIMEN Ordering Facility: [facility] Address: [address] [place] [address] Performed By: #### 2 4321-2 #### [facility] CLIA [id number] [address] [place] [address] [place] Chloride [Moles/Vol] 96 mmol/L Low 98-107 [facility] Comment on above: Order Comment: Speci men Type: BLOOD SPECIMEN Ordering Facility: [facility] Address: [address] [place] [address] Performed By: #### 2 4321-2 #### [facility] CLIA [id number] [address] [place] [address] [place] CO2 [Moles/Vol] 29 mmol/L Normal 22-30 [facility] Comment on above: Order Comment: Speci men Type: BLOOD SPECIMEN Ordering Facility: [facility] Address: [address] [place] [address] Performed By: #### 2 4321-2 #### [facility] CLIA [id number] [address] [place] [address] [place] Creatinine [Mass/Vol] 0.53 mg/dL Low 0.58-0.96 [facility] Comment on above: Order Comment: Speci men Type: BLOOD SPECIMEN Ordering Facility: [facility] Address: [address] [place] [address] Performed By: #### 2 4321-2 #### [facility] [id number] [address] [place] [address] [place] Creatinine and Glomerular filtration rate.predicted panel (S/P/Bld) 100 mL/min/1.73m??? Normal >=60 [facility] Comment on above: Order Comment: Mani hernandez Type: BLOOD SPECIMEN Ordering Facility: [facility] Address: [address] [place] [address] Result Comment: Yasmin mated Glomerular Filtration Rate [...] GFR. Performed By: #### 2 4321-2 #### [facility] [id number] [address] [place] [address] [place] Glucose [Mass/Vol] 238 mg/dL High 74-99 [facility] Comment on above: Order Comment: Mani hernandez Type: BLOOD SPECIMEN Ordering Facility: [facility] Address: [address] [place] [address] Result Comment: The [place] [employer] Association (ADA) provides guidance for cutoff [...] Standards of Medical Care in Diabetes 2016, [place] [employer]. Diabetes Care. 2016.39(Suppl 1). Performed By: #### 2 4321-2 #### [facility] [id number] [address] [place] [address] [place] Potassium [Moles/Vol] 4.1 mmol/L Normal 3.7-5.1 [facility] Comment on above: Order Comment: Specwong hernandez Type: BLOOD SPECIMEN Ordering Facility: [facility] Address: [address] [place] [address] Performed By: #### 2 4321-2 #### [facility] [id number] [address] [place] [address] [place] [place] Sodium [Moles/Vol] 135 mmol/L Low 136-144 [facility] Comment on above: Order Comment: Mani hernandez Type: BLOOD SPECIMEN Ordering Facility: [facility] Address: [address] [place] [address] Performed By: #### 2 4321-2 #### [facility] [id number] [address] [place] [address] [place] Urea nitrogen [Mass/Vol] 16 mg/dL Normal 7-21 [facility] Comment on above: Order Comment: Mani hernandez Type: BLOOD SPECIMEN Ordering Facility: [facility] Address: [address] [place] [address] Performed By: #### 2 4321-2 #### [facility] [id number] [address] [place] [address] [place] 36on 10-12-2023 36 [...] to answer question Protocols used: Medication [facility] [address] [facility] 36on 10-10-2023 36 Orders pended for doctor signature [facility] 36 Orders pended for doctor signature [place] [id number] Placed call to radha last. Two patient identifers confirmed. Was able to speak to patient. All concerns in message have been addressed. No questions at this time. Call ended Pt would like referral [facility] 36 S: Patient spoke lashell salinas [facility] nurse regarding dark vaginal spotting B: Onset of symptoms/concern 6 months A: Has a thin dark perera vaginal discharge with mild odor. Seen in office on 05/29 for same complaint. Prescribed Flagyl but did not oyster picker prescription at that time. Denies fever, abdominal [...] (i.e., yellow, green, perera) Protocols used: Vaginal Trsmfwryr-HUPHN-VG [facility] 36on 09-29-2023 36 Orders pended for doctor signature [facility] Office Visiton 09-28-2023 Follow-up visit [id number] Franky Villanueva 1955 F Date Provider Department Center 09/28/2023 [id number] GÓMEZ [facility] Family History Problem Relation Age of Onset Other Mother Comments: in 90s Coronary artery disease Father Comments: acute [place], at age 94 No Known Problems Sister Parkinsonism Brother 75 Breast cancer Mother's Sister Family Status - Relation Status Age at Mother Father Sister Alive Brother Alive Mother's Sister Level of Service:57502 HI OFFICE/OUTPATIENT ESTABLISHED MOD MDM 30 MIN Reason for Visit and Comments: Follow-up [151370] - Med check Normal [facility] Progress Noteon 09-28-2023 Progress Note [facility] [address] [facility] [id number] Visit type: Established Patient Reason [...] PO) Take by mouth. Sure Comfort Pen [place] 31G X 8 MM [facility] [...] in 90s Coronary artery disease Father acute [place], at age 94 No Known Problems Sister [...] Hospital 36on 09-06-2023 36 Placed call to [employer]. Was able to speak to patient. All concerns in message have been addressed. No questions at this time. Call ended Normal [facility] 36on 09-05-2023 36 [facility] Unable to reach them by phone to discuss lab results. Left detailed message to return call to discuss results. Please release results to patient: Ultrasound of the abdomen is normal Patient was also sent a [employer] message. Normal [facility] [...] thickness. Cholelithiasis: None. Pericholecystic fluid: None. Sonographic Roy's sign: Negative. BILE DUCTS Intrahepatic ducts: No [...] 09-01-2023 Albumin [Mass/Vol] 4.3 g/dL Normal 3.9-4.9 [facility] Comment on above: Order Comment: Speci david Type: BLOOD SPECIMEN Ordering Facility: External Submitter Address: , , Performed By: #### 2 4323-8 #### [facility] [id number] [address] [place] [address] [place] ALP [Catalytic activity/Vol] 120 U/L Normal 34-123 [facility] Comment on above: Order Comment: Mani hernandez Type: BLOOD SPECIMEN Ordering Facility: External Submitter Address: , , Performed By: #### 2 4323-8 #### [facility] CLIA [id number] [address] [place] [address] [place] ALT [Catalytic activity/Vol] 23 U/L Normal 7-38 [facility] Comment on above: Order Comment: Mani hernandez Type: BLOOD SPECIMEN Ordering Facility: External Submitter Address: , , Performed By: #### 2 4323-8 #### [facility] CLIA [id number] [address] [place] [address] [place] Anion gap [Moles/Vol] 9 mmol/L Normal 8-15 [facility] Comment on above: Order Comment: Speci men Type: BLOOD SPECIMEN Ordering Facility: External Submitter Address: , , Performed By: #### 2 4323-8 #### [facility] CLIA [id number] [address] [place] [address] [place] AST [Catalytic activity/Vol] 19 U/L Normal 13-35 [facility] Comment on above: Order Comment: Speci men Type: BLOOD SPECIMEN Ordering Facility: External Submitter Address: , , Performed By: #### 2 4323-8 #### [facility] CLIA [id number] [address] [place] [address] [place] Bilirubin [Mass/Vol] 0.3 mg/dL Normal 0.2-1.3 [facility] Comment on above: Order Comment: Speci men Type: BLOOD SPECIMEN Ordering Facility: External Submitter Address: , , Performed By: #### 2 4323-8 #### [facility] CLIA [id number] [address] [place] [address] [place] Calcium [Mass/Vol] 9.3 mg/dL Normal 8.5-10.2 [facility] Comment on above: Order Comment: Speci men Type: BLOOD SPECIMEN Ordering Facility: External Submitter Address: , , Performed By: #### 2 4323-8 #### [facility] CLIA [id number] [address] [place] [address] [place] Chloride [Moles/Vol] 95 mmol/L Low 98-107 [facility] Comment on above: Order Comment: Speci men Type: BLOOD SPECIMEN Ordering Facility: External Submitter Address: , , Performed By: #### 2 4323-8 #### [facility] CLIA [id number] [address] [place] [address] [place] CO2 [Moles/Vol] 29 mmol/L Normal 22-30 [facility] Comment on above: Order Comment: Mani hernandez Type: BLOOD SPECIMEN Ordering Facility: External Submitter Address: , , Performed By: #### 2 4323-8 #### [facility] [id number] [address] [place] [address] [place] Creatinine [Mass/Vol] 0.55 mg/dL Low 0.58-0.96 [facility] Comment on above: Order Comment: Mani hernandez Type: BLOOD SPECIMEN Ordering Facility: External Submitter Address: , , Performed By: #### 2 4323-8 #### [facility] [id number] [address] [place] [address] [place] Creatinine and Glomerular filtration rate.predicted panel (S/P/Bld) 99 mL/min/1.73m??? Normal >=60 [facility] Comment on above: Order Comment: Mani [...] GFR. Performed By: #### 2 4323-8 #### [facility] [id number] [address] [place] [address] [place] Glucose [Mass/Vol] 307 mg/dL High 74-99 [facility] Comment on above: Order Comment: Mani hernandez Type: BLOOD SPECIMEN Ordering Facility: External Submitter Address: , , Result Comment: The [place] Diabetes Association (ADA) provides guidance for cutoff [...] Standards of Medical Care in Diabetes 2016, [place] Diabetes Association. Diabetes Care. 2016.39(Suppl 1). Performed By: #### 2 4323-8 #### [facility] CLIA [id number] [address] [place] [address] [place] Potassium [Moles/Vol] 4.2 mmol/L Normal 3.7-5.1 [facility] Comment on above: Order Comment: Mani hernandez Type: BLOOD SPECIMEN Ordering Facility: External Submitter Address: , , Performed By: #### 2 4323-8 #### [facility] [id number] [address] [place] [address] [place] Protein [Mass/Vol] 7.2 g/dL Normal 6.3-8.0 [facility] Comment on above: Order Comment: Mani hernandez Type: BLOOD SPECIMEN Ordering Facility: External Submitter Address: , , Performed By: #### 2 4323-8 #### [facility] [id number] [address] [place] [address] [place] Sodium [Moles/Vol] 133 mmol/L Low 136-144 [facility] Comment on above: Order Comment: Mani hernandez Type: BLOOD SPECIMEN Ordering Facility: External Submitter Address: , , Performed By: #### 2 4323-8 #### [facility] [id number] [address] [place] [address] [place] Urea nitrogen [Mass/Vol] 13 mg/dL Normal 7-21 [facility] Comment on above: Order Comment: Mani hernandez Type: BLOOD SPECIMEN Ordering Facility: External Submitter Address: , , Performed By: #### 2 4323-8 #### [facility] CLIA [id number] [address] [place] [address] [place] US Heart TransthoracicOrdere d By: Gautam Dennison on 09-01-2023 Ao Root Index 1.62 cm[facility]2 [facility] [employer] Work Phone: Aortic Root 2.7 cm [facility] [employer] Work Phone: Aortic Sinus Valsalva 2.7 cm [place] [employer] Work Phone: Aortic Sinus Valsalva Index 1.62 cm/m2 [facility] [employer] Work Phone: E/E' Lateral 9.22 [facility] [employer] Work Phone: E/E' Ratio (Averaged) 9.80 [place] [employer] Work Phone: E/E' Septal 10.38 [facility] [employer] Work Phone: EF BP 63 % 55 - 100 % [facility] [employer] Work Phone: Est. RA Pressure 3 mmHg [facility] Work Phone: Fractional Shortening 2D 36 % 28 - 44 % [facility] [employer] Work Phone: Interpretation and review of laboratory results Abnormal [facility] [employer] Work Phone: IVC Diameter 1.9 cm [facility] [employer] Work Phone: IVSd 0.8 cm 0.6 - 0.9 cm [facility] [employer] Work Phone: LA Diameter 3.1 cm [facility] [employer] Work Phone: LA Size Index 1.86 cm/m2 [facility] [employer] Work Phone: LA Volume 2C 45 mL 22 - 52 mL [facility] [employer] Work Phone: LA Volume 4C 26 mL 22 - 52 mL [facility] [employer] Work Phone: LA Volume A/L 40 mL [facility] Work Phone: LA Volume BP 35 mL 22 - 52 mL [facility] Work Phone: LA Volume Index 2C 27 mL/m2 16 - 34 mL/m2 [facility] Work Phone: LA Volume Index 4C 16 mL/m2 16 - 34 mL/m2 [facility] Work Phone: LA Volume Index A/L 24 mL/m2 16 - 34 mL/m2 [facility] Work Phone: LA Volume Index BP 21 ml/m2 16 - 34 ml/m2 [facility] Work Phone: LA/AO Root Ratio 1.15 [facility] Work Phone: LV E' Lateral Velocity 9 cm/s [facility] Work Phone: LV E' Septal Velocity 8 cm/s [facility] Work Phone: LV EDV A2C 62 mL [facility] Work Phone: LV EDV A4C 68 mL [facility] Work Phone: LV EDV BP 65 mL 56 - 104 mL [facility] Work Phone: LV EDV Index A2C 37 mL/m2 [facility] Work Phone: LV EDV Index A4C 41 mL/m2 [facility] Work Phone: LV EDV Index BP 39 mL/m2 [facility] Work Phone: LV Ejection Fraction A2C 61 % [facility] Work Phone: LV Ejection Fraction A4C 64 % [facility] Work Phone: LV ESV A2C 24 mL [facility] Work Phone: LV ESV A4C 24 mL [facility] Work Phone: LV ESV BP 24 mL 19 - 49 mL [facility] Work Phone: LV ESV Index A2C 14 mL/m2 [facility] Work Phone: LV ESV Index A4C 14 mL/m2 [facility] Work Phone: LV ESV Index BP 14 mL/m2 [facility] Work Phone: LV Mass 2D 142.9 g 67 - 162 g [facility] [employer] Work Phone: LV Mass 2D Index 85.6 g/m2 43 - 95 g/m2 [facility] [employer] Work Phone: LV RWT Ratio 0.49 [facility] [employer] Work Phone: LVIDd 4.5 cm 3.9 - 5.3 cm [facility] [employer] Work Phone: LVIDd Index 2.69 cm/m2 [facility] [employer] Work Phone: LVIDs 2.9 cm [facility] [employer] Work Phone: LVIDs Index 1.74 cm/m2 [facility] [employer] Work Phone: LVOT Area 2.5 cm2 [facility] [employer] Work Phone: LVOT Cardiac Output 4.2 liter/minute [facility] Work Phone: LVOT Diameter 1.8 cm [facility] [employer] Work Phone: LVOT Mean Gradient 2 mmHg [facility] [employer] Work Phone: LVOT Peak Gradient 3 mmHg [facility] [employer] Work Phone: LVOT Peak Velocity 0.9 m/s [facility] [employer] Work Phone: LVOT Stroke Volume Index 39.8 mL/m2 [facility] [employer] Work Phone: LVOT SV 66.4 ml [facility] [employer] Work Phone: LVOT VTI 26.1 cm [facility] [employer] Work Phone: LVPWd 1.1 cm Abnormal 0.6 - 0.9 cm [facility] [employer] Work Phone: MV A Velocity 0.65 m/s [facility] [employer] Work Phone: MV E Velocity 0.83 m/s [facility] Work Phone: MV E Wave Deceleration Time 200.1 ms [facility] Work Phone: MV E/A 1.28 [facility] Work Phone: PV Max Velocity 0.8 m/s [facility] Work Phone: PV Peak Gradient 3 mmHg [facility] Work Phone: RA Area 4C 35.8 mL [facility] Work Phone: RV Basal Dimension 3.4 cm [facility] Work Phone: RV Free Wall Peak S' 13 cm/s [facility] Work Phone: RV Longitudinal Dimension 5.7 cm [facility] Work Phone: RV Mid Dimension 2.7 cm [facility] Work Phone: RVOT Mean Gradient 1 mmHg [facility] Work Phone: RVOT Peak Gradient 2 mmHg [facility] Work Phone: RVOT Peak Velocity 0.7 m/s [facility] Work Phone: RVOT VTI 16.8 cm [facility] Work Phone: RVSP 35 mmHg [facility] Work Phone: Sinotubular Junction 2.2 cm [facility] Work Phone: TAPSE 2.6 cm 1.7 cm [facility] Work Phone: TR Max Velocity 2.81 m/s [facility] Work Phone: TR Peak Gradient 32 mmHg [facility] Work Phone: TR pk chung PISA 2.81 m/s [facility] Work Phone: [facility] Work Phone: US Heart Transthoracicon [...] 08-30-2023 36 S: Patient spoke wit h [facility] nurse regarding upcoming labs. B: 10/12/23. [...] hour duration, mild itching.) Protocols used: Vaginal [id number] Normal [facility] SHS ECG 12 leadOrdered By: Stanley Talavera on 07-12-2023 [facility] ALBUMIN/CREATININE RATIO, ULICES VALEon 06-16-2023 Albumin DL <= 20 mg/L (U) [Mass/Vol] 62.3 mg/L [facility] Albumin/Creatinine (U) [Mass ratio] 181 mg/g High NINF - 30 mg/g [facility] Comment on above: Adult Male and Femal [...] [Mass/Vol] 34.4 mg/dL 20.0 - 300.0 mg/dL [facility] Interpretation and review of laboratory results Abnormal [facility] HEMOGLOBIN A1C (POC)on 06-15 HbA1c (Bld) [Mass fraction] 9.6 % Abnormal 4.3 - 5.6 % [facility] Comment on above: Location:[facility], [address] [place] [address], [id number] Point of care (POC) Hemoglobin A1c (HGBA1C) [...] specific diabetes management situations: The POC device lockstitch cup setter provides a normal range of 4.2% to 6.5% for the HGBA1C POC test. However, the [place] Diabetes Association guidelines indicate that patients with [...] Interpretation and review of laboratory results Abnormal [facility] Lipid 1996 panelon 4 Cholesterol [Mass/Vol] 210 mg/dL High NINF - 200 mg/dL [facility] Comment on above: <200 mg/dL, Desirabl e 200-239 mg/dL, Borderline high >239 mg/dL, High Cholesterol in HDL [Mass/Vol] 132 mg/dL 39 - PINF mg/dL [facility] Comment on above: 40-59 mg/dL, Accepta ble >59 mg/dL, High: Negative risk factor for coronary heart disease <40 mg/dL, Low: Positive risk factor for coronary heart disease Cholesterol in LDL [Mass/Vol] 69 mg/dL NINF - 100 mg/dL [facility] Comment on above: <100 mg/dL, Optimal 100-129 mg/dL, Near optimal/above optimal 130-159 mg/dL, Borderline high 160-189 mg/dL, High >189 mg/dL, Very high Secondary prevention optimal LDL Cholesterol levels are recommended to be < 70 mg/dL Cholesterol in LDL/Cholesterol in HDL [Mass ratio] 0.52 {ratio} NINF - 2.54 [facility] Comment on above: Reference: 1. National Cholesterol Education Program ATP III Guideline At-A-Glance Quick Desk Reference: National Heart, Lung, and Blood [place]. National Institutes of Health. 2001: NIH Publication No. 01-3305. 2. An International Atherosclerosis Society position paper: global recommendations for the management of dyslipidemia: executive summary, Atherosclerosis. 2014: 232(2):410-413. Cholesterol in VLDL [Mass/Vol] 9 mg/dL NINF - 30 mg/dL [facility] Cholesterol non HDL [Mass/Vol] 78 mg/dL NINF - 130 mg/dL [facility] Comment on above: <130 mg/dL, Optimal 130-159 mg/dL, Near optimal/above optimal 160-189 mg/dL, Borderline high 190-219 mg/dL, High >219 mg/dL, Very high Secondary prevention optimal non HDL Cholesterol levels are recommended to be <100 mg/dL Cholesterol.total/Natalia sterol in HDL [Mass ratio] 1.59 {ratio} NINF - 5.10 [facility] Fasting Time 6 hrs [facility] Interpretation and review of laboratory results Abnormal [facility] Triglyceride [Mass/Vol] 45 mg/dL NINF - 150 mg/dL [facility] Comment on above: <150 mg/dL, Normal 150-199 mg/dL, Borderline high 200-499 mg/dL, High >499 mg/dL, Very high [facility] No Panel Informationon 06-01 No evidence of left or right lower extremity deep venous thrombosis. Report Dictated on Electronically Signed By: Amadeo Tony MD Electronically Signed Date/Time: 06/02/2023 1:31 PM EDT [facility] Patient Name: FRANKY VILLANUEVA : 1955 [...] augmentation and normal response to Valsalva maneuver. [facility] Amadeo Tony MD - 06/02/2023 Patient [...] Electronically Signed Date/Time: 06/02/2023 1:31 PM EDT [facility] XR Chest 2 Viewson No acute consolidati ve process. Report Dictated on Electronically Signed By: Allen Spangler DR Electronically Signed Date/Time: 06/02/2023 11:38 PM EDT [facility] [employer] Patient Name: FRANKY VILLANUEVA : 1955 [...] changes overlying the right breast and axilla. [facility] Allen Spangler MD - 06/02/2023 Patient [...] Electronically Signed Date/Time: 06/02/2023 11:38 PM EDT [facility] Radiology Study observation (narrative) [facility] XR Chest 2 ViewsOrdered By: Allen Spangler on 06-02-2023 [facility] Work Phone: Laboratory - Microbiology an d Antimicrobial susceptibilityon 05-31-2023 Bacteria identified Aer cx Nom (Genital specimen) [facility] Comment on above: CULTURE, GENITAL Micro Number: [id number] Test Status: Final Specimen Source: Vagina Specimen Quality: Inadequate Result: Test not performed. Transport device is not acceptable for test requested. No Panel Informationon 05-30 [facility] Thin prep Papanicolaou smear with manual screeningOrdered By: Rajwinder Naik on 05-27-2023 Thin prep Papanicolaou smear with manual screening 233 mg/dL 74-106 [facility] Comment on above: MANAGEMENT OF PATIEN T CARE PER NURSING PROTOCOL HEMOGLOBIN A1C (POC)on 11-08 HbA1c (Bld) [Mass fraction] 9.1 % Abnormal 4.2 - 5.6 % [facility] 25-hydroxyvitamin D3 [Mass/V ol]on 10-13-2022 Interpretation and review of laboratory results Abnormal [facility] CBC panel Auto (Bld)on 10-13 Erythrocyte distribution width (RBC) [Ratio] 12.7 % 11.0 - 15.0 % [facility] Hematocrit (Bld) [Volume fraction] 39.0 % 35.0 - 45.0 % [facility] Hemoglobin (Bld) [Mass/Vol] 13.1 g/dL 11.7 - 15.5 g/dL [facility] MCH (RBC) [Entitic mass] 30.7 pg 27.0 - 33.0 pg [facility] MCHC (RBC) [Mass/Vol] 33.6 g/dL 32.0 - 36.0 g/dL [facility] MCV (RBC) [Entitic vol] 91.3 fL 80.0 - 100.0 fL [facility] Platelet mean volume (Bld) [Entitic vol] 10.2 fL 7.5 - 12.5 fL [facility] Platelets (Bld) [#/Vol] 346 10*3/uL [facility] RBC (Bld) [#/Vol] 4.27 10*6/uL [facility] WBC (Bld) [#/Vol] 6.2 10*3/uL [facility] Comprehensive metabolic 1998 panelon 10-13-2022 Albumin [Mass/Vol] 4.4 g/dL 3.6 - 5.1 g/dL [facility] Albumin/Globulin [Mass ratio] 1.7 {ratio} [facility] ALP [Catalytic activity/Vol] 87 U/L 37 - 153 U/L [facility] ALT [Catalytic activity/Vol] 20 U/L 6 - 29 U/L [facility] AST [Catalytic activity/Vol] 21 U/L 10 - 35 U/L [facility] Bilirubin [Mass/Vol] 0.6 mg/dL 0.2 - 1 .2 mg/dL [facility] Calcium [Mass/Vol] 9.7 mg/dL 8.6 - 10. 4 mg/dL [facility] Chloride [Moles/Vol] 98 mmol/L 98 - 11 0 mmol/L [facility] CO2 [Moles/Vol] 30 mmol/L 20 - 32 mmol/L [facility] Creatinine [Mass/Vol] 0.65 mg/dL 0.50 - 1.05 mg/dL [facility] GFR/1.73 sq M.predicted among non-blacks MDRD (S/P/Bld) [Vol rate/Area] 96 mL/min/{1.73_m2} > OR = 60 mL/min/1.73m 2 [facility] Globulin (S) [Mass/Vol] 2.6 g/dL [facility] Glucose [Mass/Vol] 78 mg/dL 65 - 99 mg/dL [facility] Comment on above: Fasting reference interval Potassium [Moles/Vol] 5.0 mmol/L 3.5 - 5.3 mmol/L [facility] Protein [Mass/Vol] 7.0 g/dL 6.1 - 8.1 g/dL [facility] Sodium [Moles/Vol] 136 mmol/L 135 - 146 mmol/L [facility] Urea nitrogen [Mass/Vol] 12 mg/dL 7 - 25 mg/dL [facility] Urea nitrogen/Creatinine [Mass ratio] SEE NOTE: [facility] Comment on above: Not Reported: BUN an d Creatinine are within reference range. Folateon 10-13-2022 Folate [Mass/Vol] 18.3 ng/mL [facility] ealt Comment on above: Reference Range Low: <3.4 Borderline: 3.4-5.4 Normal: >5.4 No Panel Informationon 10-13 [facility] TSHon 10-13-2022 TSH Qn 4.00 m[IU]/L [facility] Vitamin B12on 10-13-2022 Cobalamin (Vitamin B12) [Mass/Vol] 413 pg/mL 200 - 1100 pg/mL [facility] Vitamin D Deficiency Screeni ng (Vit D 25)on 10-13-2022 25-hydroxyvitamin D3 [Mass/Vol] 10 ng/mL Low 30 - 100 ng/mL [facility] Comment on above: Vitamin D Status 25- [place] Vitamin D: Deficiency: <20 ng/mL Insufficiency: 20 - 29 ng/mL Optimal: > or = 30 ng/mL For 25-OH Vitamin D testing on patients on D2-supplementation and patients for whom quantitation of D2 and D3 fractions is required, the QuestAssureD() 25-OH VIT D, (D2,D3), LC/MS/MS is recommended: order code 24536 (patients >2yrs). See Note 1 Note 1 For additional information, please refer to http://education.[email or web address] IDE.Codemasters/faq/SDP944 (This link is being provided for informational/ educational purposes only.) Mason 06-21-2022 [facility]CO HNO ID: [id number] Author: Mammography Coordinator Service: ? Author Type: Physician Type: Letter Filed: 06/22/2022 11:33 PM Note Text: [facility] [address] [place] [address] June 21, 2022 PID: [id number] Franky Villanueva [address] [place] [address] Dear Ms. Villanueva, We are pleased to [...] report will be kept on file at [facility] as part of your permanent medical record and are available for your continuing care. Thank you for allowing us to help in meeting your health care needs. Sincerely, Dr. Felipe Interpreting Radiologist [facility] (Normal over 40) Normal [facility] SCREENINGon 06-20-2022 [facility] SCREENING * * *Final Report* * * DATE OF EXAM: Jun 20 2022 8:51AM AAW [id number] - [facility] SCREENING / PROCEDURE REASON: screen * * * * Physician Interpretation * * * * #[id number] - [facility] SCREENING BILATERAL DIGITAL SCREENING MAMMOGRAM WITH CAD: 06/20/2022 HISTORY: Screen / Screening Mammogram-Patient reports NO symptoms. RESULT: TECHNIQUE: The study was acquired using full field digital technology and interpreted from soft copy. Current study was also evaluated with a Computer Aided Detection (CAD). Comparison is made to exams dated: 10/05/2020 mammogram, 09/17/2018 mammogram, and 03/19/2018 mammogram - [facility]. The tissue of both breasts is extremely dense, which lowers the sensitivity of mammography. There are benign post operative findings in the right breast. No significant masses, calcifications, or other findings are seen in either breast. There has been no significant interval change. IMPRESSION: BENIGN FINDING There is no mammographic evidence of malignancy. A 1 year screening mammogram is recommended. Reba cabezas/lynn:06/21/2022 12:25:19 [employer]oc Operations Intelligence Chief(s): RT Marilyn(R)(M), [facility] letter sent: Normal over 40 Mammogram BI-RADS: [...] Health, Family Medicine, and Medical/Surgical Oncology, the [facility] has carefully reviewed the data and reached [...] their providers when to stop screening mammograms. Planting Machine Crewman: Lynn Transcribe Date/Time: Jun 20 2022 8:34A Dictated by : REBA FELIPE MD This examination was interpreted and the report reviewed and electronically signed by: REBA FELIPE MD on Jun 21 2022 12:25PM EST [id number] Normal [facility] DXA-AXIAL SKELETONon 023 LOWEST T-SCORE -1.5 [facility] HEMOGLOBIN A1C (POC)on 01-21 HbA1c (Bld) [Mass fraction] 9.6 % Abnormal 4.2 - 5.6 % [facility] Glucose Glucometer (BldC) [M ass/Vol]on 10-20-2021 Glucose [Mass/Vol] 241 mg/dL 74-106 [facility] Work Phone: Comment on above: MANAGEMENT OF PATIEN T CARE PER NURSING PROTOCOL HEMOGLOBIN A1C (POC)on 05-25 HbA1c (Bld) [Mass fraction] 9.4 % Abnormal 4.2 - 5.6 % [facility] EMG REPORTOrdered By: Td Hirsch on 12-14-2020 Td Hirsch, - 12/14/2020 1:39 PM EDT PATIENT: KAYFRANKY FIGUEROA DATE OF SERVICE: 12/14/2020 ORDER NUMBER: DATE OF : 1955 AGE: 65 ADMITTING PHYSICIAN: Allen Hardin JR, MD ATTENDING PHYSICIAN: Allen Hardin JR, MD DICTATING PHYSICIAN: Td Hirsch DO NERVE CONDUCTION TEST/EMG FACILITY: [facility] REFERRING PHYSICIAN: Allen Hardin JR, MD TEST [...] AAC/vjw DOT :12/14/2020 01:39 P Job Number: [id number] Document Number: [id number] cc: Allen Hardin JR, MD [address] [facility] [address] [facility] [address] [facility] Work Phone: [facility] Work Phone: BD DXA - AXIAL SKELETONon BD DXA - AXIAL SKELETON * * *Final Repor t* * * DATE OF EXAM: Sep 23 2019 10:29AM KISHAN 0804 - BD DXA - AXIAL SKELETON / PROCEDURE REASON: multiple diagnoses * * * * Physician Interpretation * * * * EXAMINATION: DXA BONE DENSITOMETRY TECHNIQUE: Low dose AP spine and hip images DXA Model: [facility] [place] [id number] Date Scanned: 09/23/2019 10:29 AM COMPARISON: None [...] Osteoporosis Less than or equal to -2.5 Planting Machine Crewman: SANIA Transcribe Date/Time: Sep 23 2019 11:26A Dictated by : ALLEN TERRY MD This examination was interpreted and the report reviewed and electronically signed by: ALLEN TERRY MD on Sep 23 2019 11:27AM EST [id number] [facility] PROGRESSon 09-23-2019 PROGRESS HNO ID: [id number] Author: Leah Barahona (Rt) Service: Radiology Author Type: Grocery Stock Clerk Type: Progress Notes Filed: 09/23/2019 10:32 AM [...] RT Jun September 23, 2019 10:32 AM [facility] MAMM US BREAST LTD RIGHTon 0 03-19-2018 MAMM US BREAST LTD RIGHT Performed at [facility] APPROVED BY: DES HENSON MD #[id number] - MAMMOGRAM DIAG WITH CAD IF PERFORMED BILATERAL #[id number] - MAMM US BREAST LTD RIGHT BILATERAL DIGITAL DIAGNOSTIC MAMMOGRAM WITH CAD WITH MEDIOLATERAL OBLIQUE CRANIOCAUDAL: 03/19/2018 CLINICAL: Patient presents with right breast lump. Patient presents with palpable abnormality felt by referring physician. Comparison is made to exams dated: 02/07/2017 mammogram, 06/16/2016 mammogram - [facility] [place], 04/13/2016 mammogram - [facility], and 02/05/2015 mammogram - [facility] [place]. The tissue of both breasts is extremely [...] exams dated: 02/07/2017 mammogram, 06/16/2016 mammogram - [facility], 04/13/2016 mammogram - [facility], and 02/05/2015 mammogram - [facility]. Color flow and real-time ultrasound of the [...] to demonstrate stability. Dr. Des gagnon/lynn:03/19/2018 11:14:11 Aoc Operations Intelligence Chief(s): Loly IniguezS., [facility]; RT Madai(R)(M), [facility] OVERALL STUDY BIRADS: 3 Probably benign Normal [facility] MAMMOGRAM DIAG WITH CAD IF P ERFORMED BILATERALon 03-19-2018 MAMMOGRAM DIAG WITH CAD IF PERFORMED BILATERAL Performed at [facility] APPROVED BY: DES HENSON MD #[id number] - MAMMOGRAM DIAG WITH CAD IF PERFORMED BILATERAL #[id number] - MAMM US BREAST LTD RIGHT BILATERAL DIGITAL DIAGNOSTIC MAMMOGRAM WITH CAD WITH MEDIOLATERAL OBLIQUE CRANIOCAUDAL: 03/19/2018 CLINICAL: Patient presents with right breast lump. Patient presents with palpable abnormality felt by referring physician. Comparison is made to exams dated: 02/07/2017 mammogram, 06/16/2016 mammogram - [facility], 04/13/2016 mammogram - [facility], and 02/05/2015 mammogram - [facility]. The tissue of both breasts is extremely [...] exams dated: 02/07/2017 mammogram, 06/16/2016 mammogram - [facility], 04/13/2016 mammogram - [facility], and 02/05/2015 mammogram - [facility]. Color flow and real-time ultrasound of the [...] to demonstrate stability. Dr. Des gagnon/lynn:03/19/2018 11:14:11 Aoc Operations Intelligence Chief(s): Amara Frederick R.D.M.S., [facility]; RT Madai(Ravinder)(M), [facility] OVERALL STUDY BIRADS: 3 Probably benign Normal [facility] Vital Signs Date Time Vital Sign Value Performing Clinician Facility 09-11-2024 08:21-0400 Body height 165.[address] Norberto Gómez DO Work Phone: [facility] 09-11-2024 08:21-0400 Body mass index (BMI) [Ratio] 21.4 kg/m2 Dr. Norberto Gómez DO Work Phone: [facility] 09-11-2024 08:21-0400 Body weight 58.[address] Norberto Gómez DO Work Phone: [facility] 09-11-2024 08:21-0400 Diastolic blood pressure 67 mm[Hg] Dr. Norberto Gómez DO Work Phone: [facility] 09-11-2024 08:21-0400 Heart rate 74 /min Dr. Norberto Gómez DO Work Phone: [facility] 09-11-2024 08:21-0400 SaO2% (BldA) [Mass fraction] 99 % Dr. Norberto Gómez DO Work Phone: [facility] 09-11-2024 08:21-0400 Systolic blood pressure 145 mm[Hg] Dr. Norberto Gómez DO Work Phone: [facility] 08-14-2024 13:30-0400 Body height 165.1 cm Prisca Garner MD Work Phone: [facility] 08-14-2024 13:30-0400 Body mass index (BMI) [Ratio] 22.13 kg/m2 Prisca Garner MD Work Phone: [facility] 08-14-2024 13:30-0400 Body weight 60.33 kg Prisca Garner MD Work Phone: [facility] 08-14-2024 13:30-0400 Diastolic blood pressure 68 mm[Hg] Prisca Garner MD Work Phone: [facility] 08-14-2024 13:30-0400 Systolic blood pressure 124 mm[Hg] Prisca Garner MD Work Phone: [facility] 06-26-2024 09:43-0400 Body mass index (BMI) [Ratio] 22.21 kg/m2 Prisca Garner MD Work Phone: [facility] 06-26-2024 09:43-0400 Body weight 60.54 kg Prisca Garner MD Work Phone: [facility] 06-26-2024 09:43-0400 Diastolic blood pressure 60 mm[Hg] Prisca Garner MD Work Phone: [facility] 06-26-2024 09:43-0400 Heart rate 73 /min Prisca Garner MD Work Phone: [facility] 06-26-2024 09:43-0400 Systolic blood pressure 137 mm[Hg] Prisca Garner MD Work Phone: [facility] 06-20-2024 13:43-0400 Body height 165.[address] Norberto Gómez DO Work Phone: [facility] 06-20-2024 13:43-0400 Body mass index (BMI) [Ratio] 22.5 kg/m2 Dr. Norberto Gómez DO Work Phone: [facility] 06-20-2024 13:43-0400 Body weight 61.[address] Norberto Gómez DO Work Phone: [facility] 06-20-2024 13:43-0400 Diastolic blood pressure 66 mm[Hg] Dr. Norberto Gómez DO Work Phone: [facility] 06-20-2024 13:43-0400 Heart rate 79 /min Dr. Norberto Gómez DO Work Phone: [facility] 06-20-2024 13:43-0400 SaO2% (BldA) [Mass fraction] 98 % Dr. Norberto Gómez DO Work Phone: [facility] 06-20-2024 13:43-0400 Systolic blood pressure 136 mm[Hg] Dr. Norberto Gómez DO Work Phone: [facility] 06-19-2024 11:03-0400 Diastolic blood pressure 64 mm[Hg] Michael Rodriguez MD Work Phone: [facility] Comment on above: manual right arm 06-19-2024 11:03-0400 Systolic blood pressure 126 mm[Hg] Michael Rodriguez MD Work Phone: [facility] Comment on above: manual right arm 06-19-2024 10:38-0400 Body mass index (BMI) [Ratio] 22.42 kg/m2 Michael Rodriguez MD Work Phone: [facility] 06-19-2024 10:38-0400 Body weight 61.1 kg Michael Rodriguez MD Work Phone: [facility] 06-19-2024 10:38-0400 Heart rate 71 /min Michael Rodriguez MD Work Phone: [facility] 06-19-2024 10:38-0400 SaO2% (BldA) [Mass fraction] 99 % Michael Rodriguez MD Work Phone: [facility] 05-29-2024 11:10-0400 Body height 165.1 cm Prisca Garner MD Work Phone: [facility] 05-29-2024 11:10-0400 Body mass index (BMI) [Ratio] 22.13 kg/m2 Prisca Garner MD Work Phone: [facility] 05-29-2024 11:10-0400 Body weight 60.33 kg Prisca Garner MD Work Phone: [facility] 05-29-2024 11:10-0400 Diastolic blood pressure 70 mm[Hg] Prisca Garner MD Work Phone: [facility] 05-29-2024 11:10-0400 Heart rate 73 /min Prisca Garner MD Work Phone: [facility] 05-29-2024 11:10-0400 Systolic blood pressure 135 mm[Hg] Prisca Garner MD Work Phone: [facility] 04-29-2024 15:48-0400 Diastolic blood pressure 78 mm[Hg] Norberto Gómez DO Work Phone: [facility] 04-29-2024 15:48-0400 Heart rate 68 /min Norberto Gómez DO Work Phone: [facility] 04-29-2024 15:48-0400 Systolic blood pressure 144 mm[Hg] Norberto Gómez DO Work Phone: [facility] 04-29-2024 15:04-0400 Body height 165.1 cm Norberto Gómez DO Work Phone: [facility] 04-29-2024 15:04-0400 Body mass index (BMI) [Ratio] 23.96 kg/m2 Norberto Gómez DO Work Phone: [facility] 04-29-2024 15:04-0400 Body temperature 98.71 [degF] Norberto Gómez DO Work Phone: [facility] 04-29-2024 15:04-0400 Body weight 65.32 kg Norberto Gómez DO Work Phone: [facility] 04-29-2024 15:04-0400 SaO2% (BldA) [Mass fraction] 97 % Norberto Gómez DO Work Phone: [facility] 04-16-2024 11:10-0500 Diastolic blood pressure 68 mm[Hg] [facility] Schedule [facility] 04-16-2024 11:10-0500 Heart rate 64 /min [facility] Schedule [facility] 04-16-2024 11:10-0500 Systolic blood pressure 136 mm[Hg] [facility] Schedule [facility] 04-16-2024 10:07-0500 Body height 165.1 cm Norberto Gómez DO Work Phone: [facility] 04-16-2024 10:07-0500 Body mass index (BMI) [Ratio] 23.96 kg/m2 Norberto Gómez DO Work Phone: [facility] 04-16-2024 10:07-0500 Body weight 65.32 kg Norberto Gómez DO Work Phone: [facility] 03-20-2024 11:06-0500 Diastolic blood pressure 84 mm[Hg] Norberto Gómez DO Work Phone: [facility] 03-20-2024 11:06-0500 Systolic blood pressure 144 mm[Hg] Norberto Gómez DO Work Phone: [facility] 03-20-2024 10:38-0500 Body height 165.1 cm Norberto Gómez DO Work Phone: [facility] 03-20-2024 10:38-0500 Body mass index (BMI) [Ratio] 24.03 kg/m2 Norberto Gómez DO Work Phone: [facility] 03-20-2024 10:38-0500 Body temperature 97.9 [degF] Norberto Gómez DO Work Phone: [facility] 03-20-2024 10:38-0500 Body weight 65.5 kg Norberto Gómez DO Work Phone: [facility] 03-20-2024 10:38-0500 Heart rate 66 /min Norberto Gómez DO Work Phone: [facility] 03-20-2024 10:38-0500 SaO2% (BldA) [Mass fraction] 98 % Norberto Gómez DO Work Phone: [facility] 03-05-2024 10:07-0500 Body temperature 98 [degF] Dr. Norberto Gómez DO Work Phone: [facility] 03-05-2024 10:07-0500 Body weight 64.[address] Norberto Gómez DO Work Phone: [facility] 03-05-2024 10:07-0500 Diastolic blood pressure 64 mm[Hg] Dr. Norberto Gómez DO Work Phone: [facility] 03-05-2024 10:07-0500 Heart rate 70 /min Dr. Norberto Gómez DO Work Phone: [facility] 03-05-2024 10:07-0500 Respiratory rate 16 /min Dr. Norberto Gómez DO Work Phone: [facility] 03-05-2024 10:07-0500 SaO2% (BldA) [Mass fraction] 99 % Dr. Norberto Gómez DO Work Phone: [facility] 03-05-2024 10:07-0500 Systolic blood pressure 149 mm[Hg] Dr. Norberto Gómez Work Phone: [facility] 09-28-2023 15:49-0400 Diastolic blood pressure 78 mm[Hg] Norberto Gómez DO Work Phone: [facility] 09-28-2023 15:49-0400 Heart rate 68 /min Norberto Gómez DO Work Phone: [facility] 09-28-2023 15:49-0400 Systolic blood pressure 138 mm[Hg] Norberto Gómez DO Work Phone: [facility] 09-28-2023 14:38-0400 Body height 165.1 cm Norberto Gómez DO Work Phone: [facility] 09-28-2023 14:38-0400 Body mass index (BMI) [Ratio] 22.13 kg/m2 Norberto Gómez DO Work Phone: [facility] 09-28-2023 14:38-0400 Body temperature 97.5 [degF] Norberto Gómez DO Work Phone: [facility] 09-28-2023 14:38-0400 Body weight 60.33 kg Norberto Gómez DO Work Phone: [facility] 09-28-2023 14:38-0400 SaO2% (BldA) [Mass fraction] 98 % Norberto Gómez DO Work Phone: [facility] 09-01-2023 10:33-0400 Body height 165.1 cm Allen BRAGG-Opal Work Phone: [facility] 09-01-2023 10:33-0400 Body mass index (BMI) [Ratio] 22.47 kg/m2 Allen BRAGG-C Work Phone: [facility] 09-01-2023 10:33-0400 Body weight 61.24 kg Allen BRAGG-Opal Work Phone: [facility] 07-20-2023 11:11-0400 Body height 165.1 cm Allen Rapp PA-C Work Phone: [facility] 07-20-2023 11:11-0400 Body mass index (BMI) [Ratio] 22.5 kg/m2 Allen Rapp PA-C Work Phone: [facility] 07-20-2023 11:11-0400 Body temperature 97.5 [degF] Allen Rapp PA-C Work Phone: [facility] 07-20-2023 11:11-0400 Body weight 61.33 kg Allen Contreraso PA-C Work Phone: [facility] 07-20-2023 11:11-0400 Diastolic blood pressure 62 mm[Hg] Allen Rapp PA-C Work Phone: [facility] 07-20-2023 11:11-0400 Heart rate 71 /min Allen BRAGG-C Work Phone: [facility] 07-20-2023 11:11-0400 SaO2% (BldA) [Mass fraction] 100 % Allen Contreraso PA-C Work Phone: [facility] 07-20-2023 11:11-0400 Systolic blood pressure 122 mm[Hg] Allen Rapp PA-C Work Phone: [facility] 07-12-2023 11:35-0400 Diastolic blood pressure 68 mm[Hg] Norberto Gómez DO Work Phone: [facility] 07-12-2023 11:35-0400 Heart rate 68 /min Norberto Gómez DO Work Phone: [facility] 07-12-2023 11:35-0400 Systolic blood pressure 132 mm[Hg] Norberto Gómez DO Work Phone: [facility] 07-12-2023 10:56-0400 Body height 165.1 cm Norberto Gómez DO Work Phone: [facility] 07-12-2023 10:56-0400 Body mass index (BMI) [Ratio] 22.13 kg/m2 Norberto Gómez DO Work Phone: [facility] 07-12-2023 10:56-0400 Body temperature 97 [degF] Norberto Gómez DO Work Phone: [facility] 07-12-2023 10:56-0400 Body weight 60.33 kg Norberto Gómez DO Work Phone: [facility] 07-12-2023 10:56-0400 SaO2% (BldA) [Mass fraction] 97 % Norberto Gómez DO Work Phone: [facility] 06-16-2023 12:12-0400 Diastolic blood pressure 60 mm[Hg] Michael Rodriguez MD Work Phone: [facility] 06-16-2023 12:12-0400 Systolic blood pressure 138 mm[Hg] Michael Rodriguez MD Work Phone: [facility] 06-16-2023 11:41-0400 Body height 165.1 cm Michael Rodriguez MD Work Phone: [facility] 06-16-2023 11:41-0400 Body mass index (BMI) [Ratio] 21.5 kg/m2 Michael Rodriguez MD Work Phone: [facility] 06-16-2023 11:41-0400 Body weight 58.6 kg Michael Rodriguez MD Work Phone: [facility] 06-16-2023 11:41-0400 Heart rate 73 /min Michael Rodriguez MD Work Phone: [facility] 06-16-2023 11:41-0400 Respiratory rate 16 /min Michael Rodriguez MD Work Phone: [facility] 06-16-2023 11:41-0400 SaO2% (BldA) [Mass fraction] 100 % Michael Rodriguez MD Work Phone: [facility] 05-30-2023 15:44-0400 Body height 165.1 cm Norberto Gómez DO Work Phone: [facility] 05-30-2023 15:44-0400 Body mass index (BMI) [Ratio] 21.8 kg/m2 Norberto Gómez DO Work Phone: [facility] 05-30-2023 15:44-0400 Body temperature 97.7 [degF] Norberto Gómez DO Work Phone: [facility] 05-30-2023 15:44-0400 Body weight 59.42 kg Norberto Gómez DO Work Phone: [facility] 05-30-2023 15:44-0400 Diastolic blood pressure 58 mm[Hg] Norberto Gómez DO Work Phone: [facility] 05-30-2023 15:44-0400 Heart rate 75 /min Norberto Gómez DO Work Phone: [facility] 05-30-2023 15:44-0400 SaO2% (BldA) [Mass fraction] 98 % Norberto Gómez DO Work Phone: [facility] 05-30-2023 15:44-0400 Systolic blood pressure 123 mm[Hg] Norberto Gómez DO Work Phone: [facility] 05-27-2023 16:00-0400 Body temperature 98 [degF] [facility] 05-27-2023 16:00-0400 Diastolic blood pressure 71 mm[Hg] [facility] 05-27-2023 16:00-0400 Heart rate 68 /min [facility] 05-27-2023 16:00-0400 Respiratory rate 16 /min [facility] 05-27-2023 16:00-0400 SaO2% (BldA) [Mass fraction] 97 % [facility] 05-27-2023 16:00-0400 Systolic blood pressure 177 mm[Hg] [facility] 05-27-2023 12:50-0400 Body height 165.1 cm [facility] 05-27-2023 12:50-0400 Body mass index (BMI) [Ratio] 21.6 kg/m2 [facility] 05-27-2023 12:50-0400 Body weight 58.96 kg [facility] 05-02-2023 11:13-0400 Diastolic blood pressure 64 mm[Hg] Ramsey Greer MD Work Phone: [facility] 05-02-2023 11:13-0400 Heart rate 73 /min Ramsey Greer MD Work Phone: [facility] 05-02-2023 11:13-0400 SaO2% (BldA) [Mass fraction] 99 % Ramsey Greer MD Work Phone: [facility] 05-02-2023 11:13-0400 Systolic blood pressure 136 mm[Hg] Ramsey Greer MD Work Phone: [facility] 05-02-2023 10:21-0400 Body height 165.7 cm Ramsey Greer MD Work Phone: [facility] 05-02-2023 10:21-0400 Body mass index (BMI) [Ratio] 21.47 kg/m2 Ramsey Greer MD Work Phone: [facility] 05-02-2023 10:21-0400 Body weight 58.97 kg Ramsey Greer MD Work Phone: [facility] 11-08-2022 10:55-0400 Body weight 54.88 kg Erin Rooney CARE PARTNER[employer] Work Phone: [facility] 11-08-2022 10:55-0400 Diastolic blood pressure 70 mm[Hg] Erin Rooney CARE PARTNER.[employer] Work Phone: [facility] 11-08-2022 10:55-0400 Heart rate 67 /min Erincori Rooney CARE PARTNER.[employer] Work Phone: [facility] 11-08-2022 10:55-0400 SaO2% (BldA) [Mass fraction] 98 % Erin Rooney CARE PARTNER.[employer] Work Phone: [facility] 11-08-2022 10:55-0400 Systolic blood pressure 110 mm[Hg] [facility] C[facility] PARTNER.[employer] Work Phone: [facility] 10-12-2022 11:15-0400 Diastolic blood pressure 71 mm[Hg] Lizz Whitfield MD Work Phone: [facility] 10-12-2022 11:15-0400 Heart rate 62 /min Lizz Whitfield MD Work Phone: [facility] 10-12-2022 11:15-0400 Systolic blood pressure 159 mm[Hg] Lizz Whitfield MD Work Phone: [facility] 10-12-2022 11:13-0400 Body height 165.7 cm Lizz Whitfield MD Work Phone: [facility] Comment on above: per patient. she refused to let me do it 10-12-2022 11:13-0400 Body mass index (BMI) [Ratio] 20.41 kg/m2 Lizz Whitfield MD Work Phone: [facility] 10-12-2022 11:13-0400 Body weight 56.06 kg Lizz Whitfield MD Work Phone: [facility] 07-04-2022 17:56-0400 Diastolic blood pressure 72 mm[Hg] Norberto Gómez DO Work Phone: [facility] 07-04-2022 17:56-0400 Heart rate 76 /min Norberto Gómez DO Work Phone: [facility] 07-04-2022 17:56-0400 Systolic blood pressure 134 mm[Hg] Norberto Guadarramaa DO Work Phone: [facility] 07-04-2022 13:32-0400 Body height 165.1 cm Norberto Gómez DO Work Phone: [employer] [facility] 07-04-2022 13:32-0400 Body mass index (BMI) [Ratio] 20.3 kg/m2 Norberto Gómez DO Work Phone: [facility] [facility] 07-04-2022 13:32-0400 Body temperature 97.7 [degF] Norberto Gómez DO Work Phone: [facility] 07-04-2022 13:32-0400 Body weight 55.34 kg Norberto Gómez DO Work Phone: [facility] 07-04-2022 13:32-0400 SaO2% (BldA) [Mass fraction] 98 % Norberto Gómez DO Work Phone: [facility] 03-29-2022 14:30-0500 Body height 165.1 cm Gaurav Nunez DO Work Phone: [facility] 03-29-2022 14:30-0500 Body mass index (BMI) [Ratio] 20.3 kg/m2 Gaurav Nunez DO Work Phone: [facility] 03-29-2022 14:30-0500 Body temperature 97.7 [degF] Gaurav Nunez DO Work Phone: [facility] 03-29-2022 14:30-0500 Body weight 55.34 kg Gaurav Nunez DO Work Phone: [facility] 03-29-2022 14:30-0500 Diastolic blood pressure 71 mm[Hg] Gaurav Nunez DO Work Phone: [facility] 03-29-2022 14:30-0500 Heart rate 65 /min Gaurav Nunez DO Work Phone: [facility] 03-29-2022 14:30-0500 SaO2% (BldA) [Mass fraction] 99 % Gaurav Nunez DO Work Phone: [facility] 03-29-2022 14:30-0500 Systolic blood pressure 129 mm[Hg] Gaurav Polancofeleciao DO Work Phone: [facility] 01-21-2022 10:59-0500 Diastolic blood pressure 70 mm[Hg] Michael Rodriguez MD Work Phone: [facility] 01-21-2022 10:59-0500 Systolic blood pressure 142 mm[Hg] Michael Rodriguez MD Work Phone: [facility] 01-21-2022 10:24-0500 Body height 165.1 cm Michael Rodriguez MD Work Phone: [facility] 01-21-2022 10:24-0500 Body weight 54.25 kg Michael Rodriguez MD Work Phone: [facility] 01-21-2022 10:24-0500 Heart rate 62 /min Michael Rodriguez MD Work Phone: [facility] 01-21-2022 10:24-0500 Respiratory rate 16 /min Michael Rodriguez MD Work Phone: [facility] 01-21-2022 10:24-0500 SaO2% (BldA) [Mass fraction] 100 % Michael Rodriguez MD Work Phone: [facility] 10-20-2021 13:28-0400 Body temperature 98.1 [degF] Dr. Gaurav Nunez Work Phone: [facility] Work Phone: 10-20-2021 13:28-0400 Diastolic blood pressure 62 mm[Hg] Dr. Gaurav Nunez Work Phone: [facility] Work Phone: 10-20-2021 13:28-0400 Heart rate 66 /min Dr. Gaurav Nunez Work Phone: [facility] Work Phone: 10-20-2021 13:28-0400 Respiratory rate 18 /min Dr. Gaurav Nunez Work Phone: [facility] Work Phone: 10-20-2021 13:28-0400 SaO2% (BldA) [Mass fraction] 100 % Dr. Gaurav Nunez Work Phone: [facility] Work Phone: 10-20-2021 13:28-0400 Systolic blood pressure 167 mm[Hg] Dr. Gaurav Nunez Work Phone: [facility] Work Phone: 10-20-2021 10:54-0400 Body height 165.[address] Gaurav Nunez Work Phone: [facility] Work Phone: 10-20-2021 10:54-0400 Body mass index (BMI) [Ratio] 19.4 kg/m2 Dr. Gaurav Nunez Work Phone: [facility] Work Phone: 10-20-2021 10:54-0400 Body weight 53.[address] Gaurav Nunez Work Phone: [facility] Work Phone: 07-15-2021 13:38-0400 Body mass index (BMI) [Ratio] 19.8 kg/m2 Dr. Gaurav Nunez Work Phone: [facility] Work Phone: 07-15-2021 13:38-0400 Body weight 53.[address] Gaurav Nunez Work Phone: [facility] Work Phone: 07-15-2021 13:38-0400 Heart rate 74 /min Dr. Gaurav Nunez Work Phone: [facility] Work Phone: 05-25-2021 11:30-0400 Diastolic blood pressure 60 mm[Hg] Erin Kupiec CARE PARTNER.[employer]RE BOSS Work Phone: [facility] 05-25-2021 11:30-0400 Systolic blood pressure 140 mm[Hg] Erin Kupiec CARE PARTNER.FIRE BOSS Work Phone: [facility] 05-25-2021 11:07-0400 Body weight 53.89 kg Erin Kupiec CARE PARTNER.FIRE BOSS Work Phone: [facility] 05-25-2021 11:07-0400 Heart rate 64 /min Erin Rooney CARE PARTNER.FIRE BOSS Work Phone: [facility] 05-25-2021 11:040 SaO2% (BldA) [Mass fraction] 99 % Erin Levonnie CARE PARTNER.FIRE BOSS Work Phone: [facility] Encounters Encounter Date Encounter Type Care Provider Facility Start: 09-11-2024 End: 09-11-2024 Patient encounter procedure Willow [facility] Work Phone: Start: 09-11-2024 End: 09-11-[address] Norberto Gómez DO Work Phone: [facility] Endocrinology Start: 08-14-2024 End: 08-14-2024 ambulatory PRISCA GARNER [facility] Start: 08-14-2024 End: 08-14-2024 Office outpatient visit 10 minutes Prisca Garner MD Work Phone: [facility] Comment on above: Vaginal discharge (P rimary Dx) Start: 07-08-2024 End: 07-08-2024 ambulatory Mary Stallings RN [facility] Clinical Communication Start: 07-08-2024 End: 07-08-2024 Patient encounter procedure Mary Stallings RN [facility] Clinic al Communication Start: 07-03-2024 End: 07-03-2024 Patient encounter procedure [facility] Work Phone: Start: 07-03-2024 End: 07-03-[address] Norberto Gómez DO Work Phone: [facility] Work Phone: Start: 06-26-2024 End: 06-26-2024 Patient encounter procedure [facility] Work Phone: Start: 06-26-2024 End: 06-26-2024 ambulatory Norberto Gómez Facility:[facility] Start: 06-26-2024 End: 06-26-2024 Office outpatient visit 10 minutes Prisca Garner MD Work Phone: [facility] [place] Comment on above: PMB (postmenopausal bleeding) (Primary Dx) Start: 06-26-2024 End: 06-26-2024 ambulatory PRISCA Green PASCUAL [facility] Start: 06-24-2024 End: 07-30-2024 Telephone encounter Norberto Mac Thierrymariam Work Phone: [facility] [place] Comment on above: Other (Home care upd ate) Start: 06-20-2024 End: 06-20-2024 Telephone encounter Michael Rodriguez MD Work Phone: [facility] [place] Comment on above: 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)) Start: 06-20-2024 End: 06-20-2024 Patient encounter procedure Willow Barragan FOOD AND BEVERAGE ATTENDANT-C [facility] Work Phone: Start: 06-20-2024 End: 06-20-2024 ambulatory Willow Barragan Facility:[facility] Start: 06-19-2024 End: 06-19-2024 ambulatory NORBERTO GÓMEZ Facility:[facility] Start: 06-19-2024 End: 06-19-2024 Patient encounter procedure Michael Rodriguez MD Work Phone: Endocrinology Comment on above: 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) (Primary Dx); Premature menopause; Osteopenia of multiple sites; Microalbuminuria due to type 1 diabetes mellitus (HCC); Primary hypertension; Pure hypercholesterolemia Start: 06-05-2024 End: 07-03-2024 Telephone encounter Norberto Mac Dalia GARCIA Work Phone: [facility] [place] Comment on above: Other (Home care upd ate) Start: 06-03-2024 End: 06-12-2024 Telephone encounter Prisca Garner MD Work Phone: [facility]etrics [facility] Comment on above: Other (After visit) Start: 05-29-2024 End: 05-29-2024 Initial preventive medicine new patient 64yrs&> Prisca Garner MD Work Phone: [facility] [place] Comment on above: PMB (postmenopausal bleeding) (Primary Dx); Vaginal discharge Encounter for gyneco logical examination with abnormal finding (Primary Dx); PMB (postmenopausal bleeding); Vaginal discharge Start: 05-29-2024 End: 05-29-2024 Patient encounter status Prisca Garner MD Work Phone: [facility] Start: 05-29-2024 End: 05-29-2024 ambulatory PRISCA GARNER [facility] Start: 05-22-2024 End: 05-22-2024 ambulatory NORBERTO GÓMEZ [facility] Start: 05-20-2024 End: 05-24-2024 Orders Only Norberto Gómez DO Work Phone: [facility] [place] Comment on above: Other Start: 05-17-2024 End: 05-24-2024 Telephone encounter Norberto Gómez DO Work Phone: [facility] Comment on above: Referral Start: 05-16-2024 End: 05-16-2024 ambulatory Abiola Calvo RN [facility] Clinical Communication Start: 05-16-2024 End: 05-16-2024 Patient encounter procedure Abiola Calvo RN [facility] Clinic al Communication Start: 05-16-2024 End: 05-16-2024 Telephone encounter Norberto Gómez DO Work Phone: [facility] Comment on above: Referral Start: 05-15-2024 End: 05-17-2024 Telephone encounter Michael Rodriguez MD Work Phone: Endocrinology Comment on above: Received Office Note s ([facility]) Start: 05-10-2024 End: 05-10-2024 Telephone encounter Norberto Gómez DO Work Phone: [facility] Comment on above: [facility] Start: 05-08-2024 End: 05-10-2024 Telephone encounter Norberto Gómez DO Work Phone: [facility] Comment on above: Other ([facility]) Orders Start: 05-06-2024 End: 05-06-2024 Refill Michael Rodriguez MD Work Phone: Endocrinology Comment on above: Refill Request Start: 05-05-2024 End: 05-05-2024 Orders Only Norberto Gómez DO Work Phone: [facility] [employer] Comment on above: Hyponatremia (Primar y Dx) Start: 05-03-2024 End: 05-03-2024 ambulatory Danielle Bess RN [facility] Clinical Communication Start: 05-03-2024 End: 05-03-2024 Patient encounter procedure Danielle Bess RN [facility] Clinical Communication Start: 05-02-2024 End: 05-02-2024 Telephone encounter Norberto Gómez Work Phone: [facility] [place] Comment on above: Other (Home Health R equest ) Start: 04-29-2024 End: 04-29-2024 Office outpatient visit 40 minutes Norberto Gómez DO Work Phone: [facility] [employer] Comment on above: Ataxia (Primary Dx); Primary hypertension; Anxiety and depression; Uncontrolled type 1 diabetes mellitus with hyperglycemia (HCC); Diabetic peripheral neuropathy (HCC); Physical deconditioning Start: 04-29-2024 End: 04-29-2024 [facility] Start: 04-29-2024 End: 04-29-2024 Telephone encounter Norberto Gómez DO Work Phone: [facility] [place] Comment on above: Referral (MRI-Head / Homehealth PT / Psychology) Start: 04-24-2024 End: 04-24-2024 ambulatory Mandi Jimenez RN [facility] Clinical Communication Start: 04-24-2024 End: 04-24-2024 Patient encounter procedure Mandi Jimenez RN [facility] Clinic al Communication Start: 04-17-2024 End: 05-15-2024 Telephone encounter Norberto Gómez Work Phone: [facility] [place] Comment on above: Results (04/16/24 Dante mogram/) Start: 04-16-2024 End: 04-16-[address] [facility] Schedule [facility] Primary [facility] [place] Comment on above: Primary hypertension Other screening mamm ogram Start: 03-20-2024 End: 03-20-2024 Telephone encounter Norberto Mac Dalia GARCIA Work Phone: [facility] Comment on above: Orders (Mammogram) Start: 03-20-2024 End: 03-20-2024 ambulatory [facility] Start: 03-20-2024 End: 03-20-2024 Office outpatient visit 25 minutes Norberto Estefania Dalia GARCIA Work Phone: [facility] Comment on above: Primary hypertension (Primary Dx); 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); Anxiety and depression; Hypercholesterolemia; Peripheral edema; Breast cancer screening by mammogram Start: 03-05-2024 End: 03-05-2024 Patient encounter procedure Shayna BRAGG [facility] Work Phone: Start: 03-05-2024 End: 03-05-2024 ambulatory Shayna Villarreal Facility:[facility] Start: 01-27-2024 End: 01-29-2024 Refill Erin Greer APRN.CNP Work Phone: Endocrinology Comment on above: Refill Request Start: 01-15-2024 End: 01-15-2024 Refill Michael Rodriguez MD Work Phone: Endocrinology Comment on above: Refill Request Start: 01-11-2024 ambulatory Shayna Villarreal Facility:[facility] Start: 01-11-2024 End: 01-11-2024 ambulatory Shayna Villarreal Facility:[facility] Start: 12-28-2023 End: 12-28-2023 ambulatory Shayna Villarreal Facility:[facility] Start: 11-15-2023 End: 11-15-2023 Telephone encounter Norberto Estefania Dalia GARCIA Work Phone: [facility] Comment on above: Referral Start: 11-10-2023 End: 11-10-2023 Telephone encounter Norberto Gómez DO Work Phone: [facility] Comment on above: Referral Start: 11-08-2023 End: 11-08-2023 Refill Norberto Gómez DO Work Phone: [facility] Start: 11-05-2023 End: 11-07-2023 Telephone encounter Norberto Gómez DO Work Phone: [facility] Clinical Communication Comment on above: Other (Follow-up to lymphedema clinic referral) Start: 11-03-2023 End: 11-03-2023 Refill Erin Greer APRN.FIRE BOSS Work Phone: Endocrinology Comment on above: Refill Request Start: 10-17-2023 End: 10-17-2023 ambulatory Norberto Gómez Facility:[facility] Start: 10-17-2023 End: 10-17-2023 ambulatory NORBERTO GÓMEZ Facility:[facility] Start: 10-12-2023 End: 10-12-2023 Telephone encounter Norberto Gómez DO Work Phone: [facility] Start: 10-10-2023 End: 10-17-2023 Orders Only Norberto Gómez DO Work Phone: [facility] Comment on above: 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 ) Start: 09-29-2023 End: 09-29-2023 Telephone encounter Norberto Gómez DO Work Phone: [facility] Comment on above: Orders (Physical the rapy ) Start: 09-28-2023 End: 09-28-2023 Office outpatient visit 25 minutes Norberto Gómez DO Work Phone: [facility] Comment on above: Lymphedema (Primary Dx); Primary hypertension; 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); Hypercholesterolemia; Anxiety and depression; Uncontrolled type 1 diabetes mellitus with hyperglycemia (HCC) Start: 09-28-2023 End: 09-28-2023 [facility] Start: 09-01-2023 End: 09-01-2023 Subsequent hospital visit by physician Allen Rapp PA-C Work Phone: [facility] Comment on above: Alcohol use; LLQ abdominal pain Peripheral edema Start: 09-01-2023 End: 09-01-2023 ambulatory ALLEN RAPP [facility] Start: 09-01-2023 End: 09-01-2023 ambulatory NORBERTO GÓMEZ Facility:[facility] Start: 08-30-2023 End: 08-30-2023 ambulatory [facility] Start: 08-30-2023 End: 08-30-2023 Patient encounter procedure Mary Stallings RN [facility] Clinic al Communication Start: 08-15-2023 End: 08-29-2023 Orders Only Norberto Gómez DO Work Phone: [facility] Comment on above: Peripheral edema Medication Problem Start: 07-21-2023 Telephone encounter Norberto vazquez DO Work Phone: [facility] Comment on above: Forms/questionnaires Start: 07-20-2023 End: 07-20-2023 Assay of hemosiderin, quant Allen Rapp PA-C Work Phone: [facility] Work Phone: Start: 07-20-2023 End: 07-20-2023 Patient encounter procedure Allen Rapp PA-C Work Phone: [facility] Comment on above: Routine general medi graciela examination at [facility] facility (Primary Dx); Peripheral edema; Alcohol use; LLQ abdominal pain; Primary hypertension Start: 07-12-2023 End: 07-12-2023 Office outpatient visit 25 minutes Norberto Gómez DO Work Phone: [facility] Comment on above: Dependent edema [...] Orders Only Norberto iqbal DO Work Phone: [facility] Start: 06-03-2023 End: 09-02-2023 Transcribe Orders Norberto Gómez DO Work Phone: [facility] Clinical Communication Start: 06-02-2023 End: 06-02-2023 Subsequent hospital visit by physician Norberto Gómez DO Work Phone: [facility] Comment on above: Leg swelling Dependent edema; Decreased breath sounds at right lung base Start: 05-30-2023 End: 05-30-2023 Office outpatient visit 25 minutes Norberto Gómez DO Work Phone: [facility] Medicine Comment on above: Gardnerella associat ed vaginal discharge (Primary Dx); Dependent edema; Primary hypertension; Decreased breath sounds at right lung base; Closed fracture of sacrum and coccyx with routine healing, subsequent encounter; Uncontrolled type 1 diabetes mellitus with hyperglycemia (HCC); JENN (generalized anxiety disorder); Abrasion of upper extremity, unspecified laterality, subsequent encounter Start: 05-30-2023 Orders Only Norberto iqbal DO Work Phone: [facility] Medicine Start: 05-30-2023 Telephone encounter Norberto vazquez DO Work Phone: [facility] Comment on above: Orders (Venous doppl er ) Start: 05-27-2023 End: 05-27-2023 Emergency department patient visit [facility] Work Phone: Start: 05-02-2023 End: 05-02-2023 Office outpatient visit 15 minutes Ramsey Greer MD Work Phone: [facility] Comment on above: Dependent edema (Joy kuldeep Dx); Primary hypertension Start: 05-01-2023 ambulatory Kaitlin smith RN [facility] Clinical Communication Start: 05-01-2023 Patient encounter procedure Ra silvana Lipscomb RN [facility] Clinical Communication Start: 04-10-2023 ambulatory Trinidad Raymond RN [facility] Clinical Communication Start: 04-10-2023 Patient encounter procedure Trinidad Raymond RN [facility] Clinical Communication Start: 11-16-2022 End: 11-16-2022 Office outpatient visit 15 minutes Lizz Whitfield MD Work Phone: [facility] Comment on above: Anxiety (Primary Dx) [...] Telephone encounter Lizz Whitfield MD Work Phone: [facility] Start: 10-12-2022 Orders Only Lizz enriquez MD Work Phone: [facility] Start: 10-12-2022 End: 10-12-2022 Office outpatient new 45 minutes Lizz Whitfield MD Work Phone: [facility] Comment on above: Memory loss (Primary Dx); Anxiety; Vitamin D deficiency; Caregiver stress; Sleep disorder Start: 09-15-2022 Telephone encounter Lizz Whitfield MD Work Phone: [facility] Ger[facility] Comment on above: Appointment Request ([place] office) Start: 07-04-2022 End: 07-04-2022 Assay of hemosiderin, quant Norberto Gómez DO Work Phone: [facility] Start: 07-04-2022 End: 07-12-2023 Patient encounter procedure Norberto Hufflla DO Work Phone: [facility] Comment on above: Encounter for annual wellness visit (AWV) in Medicare patient (Primary Dx); History of right breast cancer; Diabetic 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); Dry skin dermatitis; Primary hypertension; Hypercholesterolemia; Routine general medical examination at health care facility Start: 06-21-2022 Documentation procedure Mammog ruth Coordinator [facility] Start: 06-21-2022 Letter encounter Mammography Coordinator [place] ANCILLARY AREA NOT LISTED Start: 06-20-2022 ambulatory GAURAV NUNEZ Facilit y:[facility] Start: 06-20-2022 End: 06-20-2022 Subsequent hospital visit by physician Screen Mammo [facility] RADIO MAMMO REFLECTIONS [facility] Comment on above: SCREENING Start: 05-02-2022 Telephone encounter Norberto Mac Victor Hugo vazquez DO Work Phone: [facility] Comment on above: Orders Start: 04-13-2022 Telephone encounter Gaurav boyd DO Work Phone: [facility] Comment on above: Medication Problem Start: 03-31-2022 Telephone encounter Gaurav boyd DO Work Phone: [facility] Start: 03-29-2022 End: 03-29-2022 Office outpatient visit 15 minutes Gaurav Nunez DO Work Phone: [facility] Comment on above: JENN (generalized anx iety disorder) (Primary Dx); Obsessive-compulsive behavior; Type 1 diabetes mellitus without complication (CMS/HCC) (HCC) Start: 02-24-2022 Telephone encounter Michael Rodriguez MD Work Phone: Endocrinology Comment on above: Results Start: 02-22-2022 End: 02-22-2022 Subsequent hospital visit by physician Bone Density [facility] Work Phone: Radiology Comment on above: [...] / Non-visit Dr. Mahsa Nunez Work Phone: [facility] Start: 10-20-2021 End: 10-20-2021 Admission to same day surgery center Dr. Gaurav Nunez Work Phone: [facility]Endoscopy Start: 10-20-2021 End: 10-20-[address] Gaurav Nunez Work Phone: [facility] Work Phone: Start: 08-23-2021 Refill Michael Rodriguez MD Work Phone: Endocrinology Comment on above: Refill Request Start: 07-15-2021 End: 07-15-[address] Gaurav Nunez Work Phone: [facility] Start: 06-14-2021 Refill Erin rooney CARE PARTNER.FIRE BOSS Work Phone: Endocrinology Comment on above: Refill Request; Refi ll Request Start: 05-25-2021 End: 05-25-2021 Patient encounter procedure Erin Greer CARE PARTNER.FIRE BOSS Work Phone: Endocrinology Comment on above: Type [...] 11-08-2022 Hemoglobin A1c/Hemoglobin.total in Blood Erin Greer CARE PARTNER.FIRE BOSS Work Phone: Start: 10-12-2022 Comprehensive metabo lic [...] 05-25-2021 Hemoglobin A1c/Hemoglobin.total in Blood Erin Greer CARE PARTNER.FIRE BOSS Work Phone: Start: 12-14-2020 EMG REPORT Tddanna raygoza DO Work Phone: Start: 10-05-2020 Mammography Erin rocha CARE PARTNER.FIRE BOSS Work Phone: Start: 04-18-2016 Colonoscopy Erin Green ayo CARE PARTNER.FIRE BOSS Work Phone: Plan of Treatment Date Care Activity Detail Author Start: 05-26-2033 DTaP/Tdap/Td Vaccines (2 - Td or Tdap) DTaP/Tdap/Td Vaccines (2 - Td or Tdap) [facility] Start: 05-26-2033 Urine microalbumin profile DTaP,Tdap,Td Vaccine (2 - Td or Tdap) [facility] Start: 10-21-2031 Screening for malignant neoplasm of colon [facility] Start: 04-29-2029 Cyanocobalamin vitamin b-12 Vitamin B-12 [employer] Start: 10-13-2027 Cyanocobalamin vitamin b-12 Vitamin B-12 [employer] [facility] Start: 04-21-2026 Screening for malignant neoplasm of colon Colon cancer screen colonoscopy [employer] Work Phone: Start: 06-19-2025 BP Controlled (<130/80) BP Controlled (<130/80) [facility] Start: 06-19-2025 Diabetic foot examination Diabetic Foot Exam [facility] Start: 06-19-2025 Hemoglobin A1c measurement Diabetes: Hemoglobin A1C [facility] Start: 04-29-2025 Diabetes: Estimated Glomerular Filtration Rate for Kidney Health Diabetes: Estimated Glomerular Filtration Rate for Kidney Health [facility] Start: 04-16-2025 Screening for malignant neoplasm of breast [facility] Start: 03-20-2025 Diabetes: Estimated Glomerular Filtration Rate for [facility]ney Health Diabetes: Estimated Glomerular Filtration Rate for Kid[facility] Health [facility] Start: 03-20-2025 Hemoglobin A1c measurement Diabetes: Hemoglobin A1C [facility] Start: 03-20-2025 Thyroid stimulating hormone measurement TSH Level [facility] Start: 01-01-2025 End: 01-01-2025 Patient encounter procedure 01/01/2025 10:20 AM EST Office Visit Endocrinology [address] [place] [id number] Michael Rodriguez MD [address] [place] [id number] diabetes Endocrinology Comment on above: diabetes Start: 10-30-2024 Depression Monitoring Depression Monitoring [facility] Start: 10-16-2024 Diabetes: Estimated Glomerular Filtration Rate for Kidney Health Diabetes: Estimated Glomerular Filtration Rate for Kidney Health [facility] Start: 09-18-2024 Hemoglobin A1c measurement HbA1C [facility] Start: 09-17-2024 End: 09-17-2024 Patient encounter procedure [facility] Primary [facility] - [place] Start: 08-27-2024 Glaucoma screening Diabetes: Retinopathy Screening [facility] Start: 08-18-2024 Medicare Annual Wellness (AWV) Medicare Annual Wellness (AWV) [facility] Start: 08-14-2024 End: 08-14-2024 Patient encounter procedure 08/14/2024 1:15 PM EDT Office Visit [facility] Obstetrics and Gynecology - [place] [address] [place] [phone] Prisca Garner MD [address] [facility] [address] [place] [address] [facility] [place] Start: 08-08-2024 Glaucoma screening Dilated Retinal Exam [facility] Start: 07-26-2024 End: 07-26-2024 Patient encounter procedure 07/26/2024 11:00 AM EDT Office Visit Endocrinology [address] [address] Erin Greer APRN.[employer] [address] [address] Diabetes/ Refill Endocrinology Comment on above: Diabetes/ Refill Start: 07-19-2024 Depression Screening Depression Screening [facility] Start: 07-19-2024 Diabetes: Estimated Glomerular Filtration Rate for Kidney Health Diabetes: Estimated Glomerular Filtration Rate for Kidney Health [facility] Start: 06-26-2024 End: 06-26-2024 Patient encounter procedure 06/26/2024 9:45 AM EDT Office Visit [facility] Obstetrics and Gynecology - [place] [address] [place] [id number] Prisca Garner MD [address] [facility] [address] [place] [address] [facility] [place] Start: 06-26-2024 End: 06-26-2024 Professional / ancillary services management 06/26/2024 9:00 AM EDT Ancillary Procedure [facility] - [place] [address] [place] [id number] [facility] - [place] Start: 06-19-2024 End: 09-18-2024 Lipid 1996 panel - Serum or Plasma LIPID PANEL, FASTING Lab Routine 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) Expected: 06/19/2024, Expires: 09/18/2024 [facility] Comment on above: Expected: 06/19/2024, Expires: Start: 06-19-2024 End: 09-18-2024 Microalbumin/Creatinine [Mass Ratio] in Urine ALBUMIN/CREATININE RATIO, URINE Lab Routine 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) Expected: 06/19/2024, Expires: 09/18/2024 [facility] Comment on above: Expected: 06/19/2024, Expires: Start: 06-19-2024 End: 06-19-2024 Patient encounter procedure 06/19/2024 10:20 AM EDT Office Visit Endocrinology [address] [place] [id number] Michael Rodriguez MD [address] [place] [phone] Establish Patient Endocrinology Comment on above: Establish Patient Start: 06-15-2024 Diabetes: Urine Albumin-Creatinine Ratio for Kidney Health Diabetes: Urine Albumin-Creatinine Ratio for Kidney Health [facility] Start: 06-15-2024 Hemoglobin A1c measurement Diabetes: Hemoglobin A1C [facility] Start: 06-15-2024 Hepatitis B screening Urine Albumin:Creatinine Ratio [facility] Start: 06-15-2024 Hepatitis B surface antibody level LDL Cholesterol [facility] Start: 06-05-2024 End: 05-05-2025 Basic metabolic 1998 panel - Serum or Plasma Basic metabolic panel Lab Routine Hyponatremia Expected: 06/05/2024 (Approximate), Expires: 05/05/2025 [employer] Work Phone: Comment on above: Expected: 06/05/2024 (Approximate), Expi res: 05/05/2025 Start: 05-29-2024 End: 05-29-2025 US Pelvis transvaginal US pelvis transvaginal Imaging Routine PMB (postmenopausal bleeding) Expected: 05/29/2024, Expires: 05/29/2025 [facility] Work [facility]: Comment on above: Expected: 05/29/2024, Expires: Start: 05-29-2024 End: 05-29-2024 Patient encounter procedure 05/29/2024 11:00 AM EDT Office Visit [facility] Obstetrics and Gynecology [facility] [address] [place] [phone] Prisca Garner MD [address] [place] [address] [address] [place] [id number] [facility] - [place] Start: 05-22-2024 End: 05-22-2024 Patient encounter procedure 05/22/2024 10:45 AM EDT Appointment [facility] MRI [address] [place] [phone] Norberto Gómez, [address] [place] [address] [facility] MRI Start: 05-01-2024 Diabetes: Estimated Glomerular Filtration Rate for Kidney Health Diabetes: Estimated Glomerular Filtration Rate for Kidney Health [facility] Start: 04-29-2024 End: 04-29-2024 Patient encounter procedure 04/29/2024 3:00 PM EDT Office Visit [facility] Care - [place] [address] [place] [phone] Norberto Gómez DO [address] [place] [address] [facility] - [place] Start: 04-29-2024 End: 04-29-2025 Cobalamin (Vitamin B12) [Mass/volume] in Serum or Plasma Vitamin B12 Lab Routine Ataxia Expected: 04/29/2024 (Approximate), Expires: 04/29/2025 [facility] Comment on above: Expected: 04/29/2024 (Approximate), Expi res: 04/29/2025 Start: 04-29-2024 End: 04-29-2025 Comprehensive metabolic 1998 panel - Serum or Plasma Comprehensive metabolic panel Lab Routine Primary hypertension Expected: 04/29/2024 (Approximate), Expires: 04/29/2025 [facility]: Comment on above: Expected: 04/29/2024 (Approximate), Expi res: 04/29/2025 Start: 04-29-2024 End: 04-29-2025 MR Brain WO and W contrast IV MR brain w and wo contrast Imaging Routine Ataxia Expected: 04/29/2024, Expires: 04/29/2025 [facility] Work [facility]: Comment on above: Expected: 04/29/2024, Expires: Start: 04-10-2024 End: 04-10-2024 Patient encounter procedure 04/10/2024 9:45 AM EST Office Visit [facility] Obstetrics and Gynecology [facility] [address] [facility] [address] [place] [address] Prisca Garner MD [address] [place] [address] [address] [place], [place] [id number] [facility] Obstetrics and Gynecology [facility] Start: 03-20-2024 End: 03-20-2025 CBC W Auto Differential panel - Blood CBC auto differential Lab Routine Primary hypertension Expected: 03/20/2024 (Approximate), Expires: 03/20/2025 [facility] [employer] Work Phone: Comment on above: Expected: 03/20/2024 (Approximate), Expi res: 03/20/2025 Start: 03-20-2024 End: 03-20-2025 Comprehensive metabolic 1998 panel - Serum or Plasma Comprehensive metabolic panel Lab Routine Primary hypertension Expected: 03/20/2024 (Approximate), Expires: 03/20/2025 [facility] Comment on above: Expected: 03/20/2024 (Approximate), Expi res: 03/20/2025 Start: 03-20-2024 End: 05-18-2025 DBT Breast - bilateral screening Bilateral screening mammogram with tomosynthesis Imaging Routine Other screening mammogram Expected: 03/20/2024, Expires: 05/18/2025 [facility] Work Phone: Comment on above: Expected: 03/20/2024, Expires: Start: 03-20-2024 End: 03-20-2025 Hemoglobin A1c measurement Hemoglobin A1c Lab Routine 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) Expected: 03/20/2024 (Approximate), Expires: 03/20/2025 [facility] Comment on above: Expected: 03/20/2024 (Approximate), Expi res: 03/20/2025 Start: 03-20-2024 End: 03-20-2025 Thyrotropin [Units/volume] in Serum or Plasma TSH Lab Routine Peripheral edema Expected: 03/20/2024 (Approximate), Expires: 03/20/2025 [facility] Comment on above: Expected: 03/20/2024 (Approximate), Expi res: 03/20/2025 Start: 02-21-2024 Advance Directive Discussion Advance Directive Discussion [facility] Start: 01-20-2024 Depression Monitoring Depression Monitoring [facility] Start: 01-11-2024 End: 01-11-2024 Patient encounter procedure [facility] Start: 12-20-2023 End: 12-20-2023 Patient encounter procedure 12/20/2023 10:00 AM EDT Office Visit Endocrinology [address] [place] [phone] Michael Rodriguez MD [address] [place] [address] [address] [place] [address] Type 1 DM Endocrinology Comment on above: Type 1 DM Start: 11-09-2023 3 comp foot exam completed Diabetic Foot Exam [facility] Start: 11-09-2023 BP Controlled (<130/80) BP Controlled (<130/80) [facility] Start: 11-09-2023 Diabetic foot examination Diabetic Foot Exam [facility] Start: 11-09-2023 Hemoglobin A1c measurement Diabetes: Hemoglobin A1C [facility] Start: 10-26-2023 End: 10-26-2023 Clinical Support 10/26/2023 11:00 AM EDT Clinical Support [facility] [address] [place] [address] [facility] Start: 10-22-2023 Covid-19 Vaccine () Covid-19 Vaccine ( season) [facility] Start: 10-22-2023 Covid-19 Vaccine () Covid-19 Vaccine () [facility] Start: 10-22-2023 Influenza vaccination Influenza Vaccine (#1) [facility] Start: 10-13-2023 Depression Screening Depression Screening [facility] Start: 10-13-2023 Thyroid stimulating hormone measurement TSH Level [facility] Start: 10-12-2023 End: 10-12-2023 Patient encounter procedure 10/12/2023 9:00 AM EDT Office Visit [facility] [address] [place] [address] Norberto Gómez, [address] [place] [address] [facility] Start: 09-28-2023 End: 09-28-2023 Patient encounter procedure 09/28/2023 3:00 PM EDT Office Visit [facility] [address] [place] [address] Norberto Gómez DO [address] [place] [address] [facility] Start: 09-28-2023 End: 09-27-2024 Basic metabolic 1998 panel - Serum or Plasma Basic metabolic panel Lab Routine Primary hypertension Lymphedema Expected: 09/28/2023 (Approximate), Expires: 09/27/2024 [facility] Work Phone: Comment on above: Expected: 09/28/2023 (Approximate), Expi res: 09/27/2024 Start: 09-15-2023 Hemoglobin A1c measurement HbA1C [facility] Start: 09-01-2023 End: 09-01-2023 Patient encounter procedure [facility] Start: 08-29-2023 End: 08-14-2024 Comprehensive metabolic 1998 panel - Serum or Plasma Comprehensive metabolic panel Lab Routine Peripheral edema Expected: 08/29/2023 (Approximate), Expires: 08/14/2024 [facility] Work Phone: Comment on above: Expected: 08/29/2023 (Approximate), Expi res: 08/14/2024 Start: 08-04-2023 Medicare Annual Wellness (AWV) Medicare Annual Wellness (AWV) [facility] Start: 07-26-2023 End: 07-26-2023 Clinical Support 07/26/2023 9:40 AM EDT Clinical Support [facility] [address] [facility] [address] [place] [phone] [facility] Start: 07-20-2023 End: 07-19-2024 Basic metabolic 1998 panel - Serum or Plasma Basic metabolic panel Lab Routine Peripheral edema Alcohol use LLQ abdominal pain Expected: 07/20/2023 (Approximate), Expires: 07/19/2024 [facility] Comment on above: Expected: 07/20/2023 (Approximate), Expi res: 07/19/2024 Start: 07-20-2023 End: 07-19-2024 Folate [Mass/volume] in Serum or Plasma Folate Lab Routine Alcohol use Expected: 07/20/2023 (Approximate), Expires: 07/19/2024 [facility] Comment on above: Expected: 07/20/2023 (Approximate), Expi res: 07/19/2024 Start: 07-20-2023 End: 07-19-2024 US Abdomen US abdomen complete Imaging Routine Alcohol use LLQ abdominal pain Expected: 07/20/2023, Expires: 07/19/2024 [facility] Comment on above: Expected: 07/20/2023, Expires: Start: 07-20-2023 End: 07-19-2025 US Heart Transthoracic Transthoracic echocardiogram (TTE) complete with contrast, bubble, strain, and 3D PRN CV Echocardiography Routine Peripheral edema Expected: 07/20/2023 (Approximate), Expires: 07/19/2025 [facility] Work Phone: Comment on above: Expected: 07/20/2023 (Approximate), Expi res: 07/19/2025 Start: 07-20-2023 End: 07-19-2024 VITAMIN B1 VITAMIN B1 Lab Routine Alcohol use Expected: 07/20/2023 (Approximate), Expires: 07/19/2024 [facility] Comment on above: Expected: 07/20/2023 (Approximate), Expi res: 07/19/2024 Start: 07-20-2023 End: 07-20-2023 Patient encounter procedure [facility] Start: 07-12-2023 End: 07-11-2024 Natriuretic peptide B [Mass/volume] in Blood NT PRO BNP Lab Routine Dependent edema Dyspnea, unspecified Expected: 07/12/2023 (Approximate), Expires: 07/11/2024 [facility] Work Phone: Comment on above: Expected: 07/12/2023 (Approximate), Expi res: 07/11/2024 Start: 07-05-2023 Depression Screening Depression Screening [facility] Start: 06-21-2023 Mammography [facility] Start: 06-21-2023 Screening for malignant neoplasm of breast [facility] Start: 06-02-2023 End: 06-02-2023 Patient encounter procedure 06/02/2023 12:30 PM EDT Appointment [facility] [address] [place] [address] Norberto Gómez, [address] [place] [address] [facility] Start: 05-30-2023 End: 05-29-2024 Culture Bacteria Vaginal Culture Bacteria Vaginal Microbiology Routine Gardnerella associated vaginal discharge Expected: 05/30/2023 (Approximate), Expires: 05/29/2024 [facility] Comment on above: Expected: 05/30/2023 (Approximate), Expi res: 05/29/2024 Start: 05-30-2023 End: 05-29-2024 XR Chest 2 Views XR chest 2 views Imaging Routine Dependent edema Decreased breath sounds at right lung base Expected: 05/30/2023, Expires: 05/29/2024 [facility] Work [facility]: Comment on above: Expected: 05/30/2023, Expires: Start: 05-27-2023 [facility] Start: 05-16-2023 End: 05-16-2023 Patient encounter procedure 05/16/2023 9:30 AM EDT Office Visit [facility] [address] [place] [address] Norberto Gómez, [address] [place] [address] [facility] Start: 05-02-2023 End: 05-01-2024 CBC panel - Blood by Automated count CBC Lab Routine Dependent edema Expected: 05/02/2023 (Approximate), Expires: 05/01/2024 [facility] Comment on above: Expected: 05/02/2023 (Approximate), Expi res: 05/01/2024 Start: 05-02-2023 End: 05-01-2024 Comprehensive metabolic 1998 panel - Serum or Plasma Comprehensive metabolic panel Lab Routine Dependent edema Expected: 05/02/2023 (Approximate), Expires: 05/01/2024 [facility] Work Phone: Comment on above: Expected: 05/02/2023 (Approximate), Expi res: 05/01/2024 Start: 05-02-2023 End: 05-02-2023 Patient encounter procedure 05/02/2023 10:45 AM EDT Office Visit [facility] [address] [place] [address] [place] [address] Ramsey Greer MD [address] [place] [address] [place] [address] [facility] Start: 02-22-2023 Hepatitis B screening URINE ALBUMIN:CREATININE RATIO [facility] Start: 02-22-2023 Hepatitis B surface antibody level LDL CHOLESTEROL [facility] Start: 02-22-2023 Urine screening for protein Diabetes: Urine Protein Screening [facility] Start: 02-20-2023 Advance Directive Discussion Advance Directive Discussion [facility] Start: 02-07-2023 Hemoglobin A1c/Hemoglobin.total in Blood HbA1C [facility] Start: 01-21-2023 3 comp foot exam completed DIABETIC FOOT EXAM [facility] Start: 12-16-2022 End: 01-16-2023 25-hydroxyvitamin D3 [Mass/volume] in Serum or Plasma Vitamin D Deficiency Screening (Vit D 25) Lab Routine Vitamin D deficiency Expected: 12/16/2022 (Approximate), Expires: 01/16/2023 [facility] Work Phone: Comment on above: Expected: 12/16/2022 (Approximate), Expi res: 01/16/2023 Start: 11-16-2022 End: 11-16-2022 Patient encounter procedure 11/16/2022 10:45 AM EDT Office Visit [facility] Geriatrics [address] [place] [address] Lizz Whitfield MD [address] [facility] [address] [place], [place] [id number] [facility] Start: 10-21-2022 Covid-19 Vaccine ( season) Covid-19 Vaccine ( season) [facility] Start: 10-21-2022 Influenza vaccination Influenza Vaccine (#1) [facility] Start: 10-12-2022 End: 11-12-2022 25-hydroxyvitamin D3 [Mass/volume] in Serum or Plasma Vitamin D Deficiency Screening (Vit D 25) Lab Routine Vitamin D deficiency Expected: 10/12/2022 (Approximate), Expires: 11/12/2022 [facility] Comment on above: Expected: 10/12/2022 (Approximate), Expi res: 11/12/2022 Start: 10-12-2022 End: 11-12-2022 CBC panel - Blood by Automated count CBC Lab Routine Memory loss Expected: 10/12/2022 (Approximate), Expires: 11/12/2022 [facility] Work Phone: Comment on above: Expected: 10/12/2022 (Approximate), Expi res: 11/12/2022 Start: 10-12-2022 End: 11-12-2022 Cobalamin (Vitamin B12) [Mass/volume] in Serum or Plasma Vitamin B12 Lab Routine Memory loss Expected: 10/12/2022 (Approximate), Expires: 11/12/2022 [facility] Comment on above: Expected: 10/12/2022 (Approximate), Expi res: 11/12/2022 Start: 10-12-2022 End: 11-12-2022 Comprehensive metabolic 1998 panel - Serum or Plasma Comprehensive metabolic panel Lab Routine Memory loss Expected: 10/12/2022 (Approximate), Expires: 11/12/2022 [facility] Comment on above: Expected: 10/12/2022 (Approximate), Expi res: 11/12/2022 Start: 10-12-2022 End: 11-12-2022 Folate [Mass/volume] in Serum or Plasma Folate Lab Routine Memory loss Expected: 10/12/2022 (Approximate), Expires: 11/12/2022 [facility] Comment on above: Expected: 10/12/2022 (Approximate), Expi res: 11/12/2022 Start: 10-12-2022 End: 11-12-2022 Thyrotropin [Units/volume] in Serum or Plasma TSH Lab Routine Memory loss Expected: 10/12/2022 (Approximate), Expires: 11/12/2022 [facility] Comment on above: Expected: 10/12/2022 (Approximate), Expi res: 11/12/2022 Start: 10-12-2022 End: 10-12-2022 Patient encounter procedure 10/12/2022 9:45 AM EDT Office Visit [facility] Geriatrics [address] [place] [address] Lizz Whitfield MD [address] [facility] [address] [place], [place] [id number] [facility] Geriatric[facility] Start: 08-31-2022 Glaucoma screening Diabetes: Retinopathy Screening [facility] Start: 06-09-2022 Glaucoma screening Dilated Retinal Exam [facility] Start: 06-09-2022 Hepatitis C antibody, confirmatory test DILATED RETINAL EXAM [facility] Start: 04-21-2022 Hemoglobin A1c/Hemoglobin.total in Blood HBA1C [facility] Start: 03-31-2022 End: 05-30-2023 MG Breast - bilateral Screening Bilateral screening mammogram Imaging Routine Other screening mammogram Expected: 03/31/2022, Expires: 05/30/2023 [facility] Work Phone: Comment on above: Expected: 03/31/2022, Expires: 4 Start: 02-24-2022 End: 04-26-2022 Basic metabolic 2000 panel - Serum or Plasma BASIC METABOLIC PNL Lab Routine Hyponatremia Expected: 02/24/2022, Expires: 04/26/2022 [facility] Work Phone: Comment on above: Expected: 02/24/2022, Expires: 3 Start: 02-24-2022 End: 04-26-2022 Cortisol [Mass/volume] in Serum or Plasma CORTISOL BLD Lab Routine Hyponatremia Expected: 02/24/2022, Expires: 04/26/2022 [facility] Work Phone: Comment on above: Expected: 02/24/2022, Expires: 3 Start: 02-24-2022 End: 04-26-2022 Thyrotropin [Units/volume] in Serum or Plasma TSH BLD Lab Routine Hyponatremia Expected: 02/24/2022, Expires: 04/26/2022 [facility] Work Phone: Comment on above: Expected: 02/24/2022, Expires: 3 Start: 02-24-2022 End: 04-26-2022 Thyroxine (T4) free [Mass/volume] in Serum or Plasma T4 FREE/FREE THYROX Lab Routine Hyponatremia Expected: 02/24/2022, Expires: 04/26/2022 [facility] Work Phone: Comment on above: Expected: 02/24/2022, Expires: 3 Start: 02-20-2022 ADVANCE DIRECTIVE DISCUSSION ADVANCE DIRECTIVE DISCUSSION [facility] Start: 01-21-2022 End: 03-23-2022 ALBUMIN/CREAT RATIO RND UR ALBUMIN/CREAT RATIO RND UR Lab Routine 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) Expected: 01/21/2022, Expires: 03/23/2022 [facility] Work Phone: Comment on above: Expected: 01/21/2022, Expires: 3 Start: 01-21-2022 End: 03-23-2022 Comprehensive metabolic 2000 panel - Serum or Plasma COMP METABOLIC PANEL Lab Routine 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) Expected: 01/21/2022, Expires: 03/23/2022 [facility] Work Phone: Comment on above: Expected: 01/21/2022, Expires: 3 Start: 01-21-2022 End: 03-23-2022 Lipid 1996 panel - Serum or Plasma LIPID PANEL BASIC Lab Routine Pure hypercholesterolemia Expected: 01/21/2022, Expires: 03/23/2022 [facility] Work Phone: Comment on above: Expected: 01/21/2022, Expires: 3 Start: 12-25-2021 Hepatitis B screening URINE ALBUMIN:CREATININE RATIO [facility] Start: 12-25-2021 Hepatitis B surface antibody level LDL CHOLESTEROL [facility] Start: 10-21-2021 Influenza vaccination INFLUENZA (#1) [facility] Start: 10-20-2021 Patient discharge [facility] Work Phone: Start: 10-05-2021 Mammography MAMMOGRAM [facility] Start: 10-05-2021 Screening for malignant neoplasm of breast Breast cancer screen [facility] Work Phone: Start: 09-14-2021 3 comp foot exam completed DIABETIC FOOT EXAM [facility] Start: 08-24-2021 Hemoglobin A1c/Hemoglobin.total in Blood HBA1C [facility] Start: 06-22-2021 Diabetic foot examination Diabetic foot exam [facility] Work Phone: Start: 05-12-2021 COVID-19 VACCINE (4 - Booster for Pfizer series) COVID-19 VACCINE (4 - Booster for Pfizer series) [facility] Start: 04-21-2021 Hemoglobin A1c measurement Diabetes: Hemoglobin A1C [facility] Start: 04-18-2021 Colonoscopy COLONOSCOPY [facility] Start: 04-18-2021 COLORECTAL CANCER SCREENING COLORECTAL CANCER SCREENING [facility] [facility] Start: 04-18-2021 Screening for malignant neoplasm of colon [facility] Start: 03-19-2021 Hemoglobin A1c measurement A1C test (Diabetic or Prediabetic) [facility] Work Phone: Start: 03-09-2021 COVID-19 VACCINE (4 - Booster for Pfizer series) COVID-19 VACCINE (4 - Booster for Pfizer series) [facility] Start: 03-09-2021 Covid-19 Vaccine (4 - Pfizer series) Covid-19 Vaccine (4 - Pfizer series) [facility] Start: 02-20-2021 ADVANCE DIRECTIVE DISCUSSION ADVANCE DIRECTIVE DISCUSSION [facility] Start: 12-31-2020 End: 12-31-2020 Patient encounter procedure 12/31/2020 Office Visit Neurology Allen Hardin MD [address] [place] [address] [phone] [facility] Start: 11-19-2020 COVID-19 Vaccine (3 - Pfizer booster) COVID-19 Vaccine (3 - Pfizer booster) [facility] Work Phone: Start: 07-22-2020 Hemoglobin A1c measurement Diabetes: Hemoglobin A1C [facility] Start: 07-09-2020 Hepatitis C antibody, confirmatory test DILATED RETINAL EXAM [facility] Start: 2019 PNEUMOVAX AGE 65 AND OVER WITH 5YR LOOKBACK (#1) PNEUMOVAX AGE 65 AND OVER WITH 5YR LOOKBACK (#1) [facility] Start: 05-24-2018 Creatinine measurement Creatinine monitoring [facility] Work Phone: Start: 05-24-2018 Potassium monitoring Potassium monitoring [facility] Work Phone: Start: 02-21-2015 Shingles Vaccine (2 of 3) Shingles Vaccine (2 of 3) [facility] Work Phone: Start: 2014 Hepatitis B Vaccine (1 of 3 - Risk 3-dose series) Hepatitis B Vaccine (1 of 3 - Risk 3-dose series) [facility] Start: 2014 Hepatitis B Vaccines (1 of 3 - Risk 3-dose series) Hepatitis B Vaccines (1 of 3 - Risk 3-dose series) [facility] Start: 2014 RSV Immunization aged 60 or older (1 - 1-dose 60+ series) RSV Immunization aged 60 or older (1 - 1-dose 60+ series) [facility] Start: 2014 RSV Immunization for Adults (1 - Risk 60-74 years 1-dose series) RSV Immunization for Adults (1 - Risk 60-74 years 1-dose series) [facility] Start: 2014 RSV Vaccine (1 - 1-dose 60+ series) RSV Vaccine (1 - 1-dose 60+ series) [facility] Start: 2014 RSV Vaccine (1 - Risk 60-74 years 1-dose series) RSV Vaccine (1 - Risk 60-74 years 1-dose series) [facility] Start: 11-13-2009 Pneumococcal Vaccine: 65+ (2 - PCV) Pneumococcal Vaccine: 65+ (2 - PCV) [facility] Start: 11-13-2009 PNEUMOCOCCAL: 65+ (2 - PCV) PNEUMOCOCCAL: 65+ (2 - PCV) [facility] Start: 2009 Screening for osteoporosis DEXA (modify frequency per FRAX score) [facility] Work Phone: Start: 2004 SHINGRIX VACCINE (1 of 2) SHINGRIX VACCINE (1 of 2) [facility] Start: 1999 COLOGUARD (FIT-DNA) COLOGUARD (FIT-DNA) [facility] Start: [address] COLONOGRAPHY [facility] Start: 1999 FECAL OCCULT BLOOD FECAL OCCULT BLOOD [facility] Start: 1999 Screening for malignant neoplasm of colon [facility] Start: 1999 SIGMOIDOSCOPY SIGMOIDOSCOPY [facility] Start: 1973 DTaP/Tdap/Td vaccine (1 - Tdap) DTaP/Tdap/Td vaccine (1 - Tdap) [facility] Work Phone: Start: 1973 DTaP/Tdap/Td Vaccines (1 - Tdap) DTaP/Tdap/Td Vaccines (1 - Tdap) [facility] Start: 1973 Urine microalbumin profile [facility] Start: 1972 ANNUAL PCP TEAM CHRONIC DISEASE VISIT ANNUAL PCP TEAM CHRONIC DISEASE VISIT [facility] Start: 1972 Anxiety Screening Anxiety Screening [facility] Start: 1972 BP CONTROLLED (<130/80) BP CONTROLLED (<130/80) [facility] in Start: 1972 Diabetes: Urine Albumin-Creatinine Ratio for Kidney Health Diabetes: Urine Albumin-Creatinine Ratio for Kidney Health [facility] Start: 1972 Diabetic microalbuminuria test Diabetic microalbuminuria test [facility] Work Phone: Start: 1972 HEPATITIS C SCREENING HEPATITIS C SCREENING [facility] Start: 1972 Hepatitis C screening Hepatitis C Screening [facility] Start: 1964 Diabetic foot examination Diabetes: Foot Exam [facility] Start: 1964 Diabetic retinal exam Diabetic retinal exam [facility] Work Phone: Start: 1964 Glaucoma screening Diabetes: Retinopathy Screening [facility] Start: 1964 Lipid panel Lipid screen [employer] Work Phone: Start: 1964 Preventive dental service Diabetes: Dental Exam [facility] Start: 1954 Cyanocobalamin vitamin b-12 Vitamin B-12 [facility] Start: 1954 Diabetes: Celiac Disease Screening Diabetes: Celiac Disease Screening [facility] Start: 1954 Hepatitis B Vaccines (1 of 3 - 3-dose series) Hepatitis B Vaccines (1 of 3 - 3-dose series) [facility] Start: 1954 Hepatitis C screening Hepatitis C screen [facility] Work Phone: Start: 1954 Lipid panel Lipid Panel [facility] Start: 1954 Medicare Annual Wellness (AWV) Medicare Annual Wellness (AWV) [facility] Start: 1954 Screening for malignant neoplasm of colon [facility] Start: 1954 Thyroid stimulating hormone measurement TSH Level [facility] End: 07-19-2025 BD DXA TRABECULAR BONE SCORE (TBS) BD DXA TRABECULAR BONE SCORE (TBS) Radiology Routine Premature menopause 1 Occurrences starting 06/19/2024 until 07/19/2025 [facility] Comment on above: 1 Occurrences starting 06/19/2024 until 07/19/2025 Comprehensive metabo lic 2000 panel - Serum or Plasma [facility] End: 07-19-2025 DXA Skeletal system.axial Views for bone density DXA-AXIAL SKELETON Radiology Routine Premature menopause 1 Occurrences starting 06/19/2024 until 07/19/2025 [facility] Work Phone: Comment on above: 1 Occurrences starting 06/19/2024 until 07/19/2025 End: 02-20-2023 DXA-AXIAL SKELETON DXA-AXIAL SKELETON Radiology Routine Osteopenia of multiple sites Disorder of bone and cartilage 1 Occurrences starting 01/21/2022 until 02/20/2023 [facility] Work Phone: Comment on above: 1 Occurrences starting 01/21/2022 until 02/20/2023 Lipid 1996 panel - Serum or Plasma [facility] OUTSIDE PROCEDURE SCAN OUTSIDE P ROCEDURE SCAN Procedures Ordered: 06/01/2023 [employer] Comment on above: Ordered: 06/01/2023 Patient Education ED Tailbone (C occyx) Fracture [facility] Work Phone: Patient referral [facility] Work Phone: SURESWAB(R) ADVANCED VAGINITIS, TMA ([facility]) Sureswab(R) Advanced Vaginitis, TMA ([facility]) Lab Routine Vaginal discharge Ordered: 05/29/2024 [employer] Comment on above: Ordered: 05/29/2024 SURESWAB(R) ADVANCED VAGINITIS, TMA ([facility]) Sureswab(R) Advanced Vaginitis, TMA ([facility]) Lab Routine Vaginal discharge Ordered: 08/14/2024 [employer] Work Phone: Comment on above: Ordered: 08/14/2024 Thyroid stimulating hormone measurement [facility] Urine microalbumin/creatinine ratio measurement [facility] End: 09-01-2023 US Abdomen [employer] Work Phone: Comment on above: Once for 1 Occurrences starting 09/01/19 24 until 09/01/2023 Vitamin D, 25-hydrox y measurement [facility] [place] [facility] Immunizations Immunization Date Immunization Notes Care Provider Moe benedict 10-11-2023 Seasonal trivalent influenza vaccine, adjuvanted, preservative free Norberto Gómez DO Work Phone: [facility] 05-27-2023 tetanus toxoid, redu georges diphtheria toxoid, and acellular pertussis vaccine, adsorbed [facility] 12-16-2022 influenza virus vacc ine, unspecified formulation Norberto Gómez DO Work Phone: [facility] 11-12-2021 Influenza, Seasonal, Quadrivalent, Adjuvanted Norberto Gómez DO Work Phone: [facility] 11-12-2021 Pneumococcal Conjuga te PCV20, Pf (Prevnar 20) Norberto Gómez DO Work Phone: [facility] 11-12-2021 influenza virus vacc ine, unspecified formulation Lizz Whitfield MD Work Phone: [facility] 09-13-2021 zoster vaccine recombinant Norberto Gómez DO Work Phone: [facility] 06-15-2021 zoster vaccine recombinant Norberto Gómez DO Work Phone: [facility] 01-12-2021 Pfizer SARS-CoV-2 Vaccination Norberto Gómez DO Work Phone: [facility] 11-16-2020 Influenza, Seasonal, Quadrivalent, Adjuvanted Norberto Gómez DO Work Phone: [facility] 06-22-2020 pneumococcal polysaccharide vaccine, 23 valent Allen Hardin MD Work Phone: [facility] 05-19-2020 Covid (Pfizer) Dr. Gaurav Betancur asso Work Phone: [facility] 04-28-2020 Covid (Pfizer) Dr. Gaurav Betancur asso Work Phone: [facility] 11-14-2019 unknown vaccine or immune globulin Norberto Gómez DO Work Phone: [facility] 12-26-2018 Influenza, injectabl e, Madin [place] Canine Kidney, preservative free, quadrivalent Allen Hardin MD Work Phone: [facility] 12-04-2017 Influenza, injectabl e, Madin [place] Canine Kidney, preservative free, quadrivalent Norberto Petrilla DO Work Phone: [facility] 12-26-2016 influenza, seasonal, injectable, preservative free Norberto Petrilla DO Work Phone: [facility] 11-27-2015 influenza virus vacc ine, unspecified formulation Allen Hardin MD Work Phone: [facility] 11-27-2015 influenza, seasonal, injectable Norberto Petrilla DO Work Phone: [facility] 11-11-2015 Influenza Vaccine, unspecified formulation Allen Hardin MD Work Phone: [facility] Work Phone: 11-11-2015 influenza, seasonal, injectable Norberto Petrilla DO Work Phone: [facility] 01-01-2015 influenza, seasonal, injectable Norberto Petrilla DO Work Phone: [facility] 12-27-2014 zoster vaccine, live Allen dahl MD Work Phone: [facility] 04-21-2014 zoster vaccine, live Allen dahl MD Work Phone: [facility] 04-02-2014 zoster vaccine, live Allen dahl MD Work Phone: [facility] Work Phone: 11-28-2013 influenza, seasonal, injectable Norberto Petrilla DO Work Phone: [facility] 12-12-2008 influenza virus vacc ine, whole virus Norberto Petrilla DO Work Phone: [facility] 11-13-2008 pneumococcal polysaccharide vaccine, 23 valent Michael Rodriguez MD Work Phone: [facility] 12-19-2006 influenza virus vacc ine, whole virus Norberto Petrilla DO Work Phone: [facility] Payers Date Payer Category Payer Self-pay [id number] 2023 For Life--Medicare Supplement FOR LIFE [id number] 2022 Department of [facility] ( and others) [id number] 2022 Government (not [facility] care or Medicaid) FOR LIFE [id number] 2019 Unknown FOR LIFE [id number] 2019-Present [phone] [address] [id number] Indemnity [id number] 2019 Unknown [id number] 2019 Medicare MEDICARE MEDICAR E A AND B [id number] 2019-Present [phone] [place] [address] Medicare [id number] 2019 Medicare [id number] 2019 Medicare [id number] 2017 Department of [employer]ens e (ERICKA and others) [id number] Unknown [id number] Unknown [id number] Unknown [id number] Unknown [id number] Unknown [id number] Unknown [id number] Unknown [id number] Unknown [id number] Unknown [id number] Social History Date Type Detail Facility Start: 09-09-2020 End: 06-20-2024 Tobacco smoking status NHIS Never smoker [facility] Work Phone: Start: 09-09-2020 End: 01-21-2022 Tobacco use and exposure Never used [facility] Start: 09-09-2020 End: 08-14-2024 Alcohol intake Current drinker of alcohol (finding) [facility] Work Phone: Start: 05-22-2018 History SDOH Alcohol Frequency 5 [facility] Work Phone: Start: 05-22-2018 History SDOH Alcohol Std Drinks 1 [facility] Work Phone: Start: 05-22-2018 History SDOH Social Connections Phone 4 [facility] Work Phone: Start: 05-22-2018 History SDOH Social Connections Get Together 3 [facility] Work Phone: Start: 09-14-2018 History SDOH Social Connections Holiness 98 [facility] Work Phone: Start: 05-22-2018 End: 09-14-2018 History SDOH IPV Fear 2 [facility] Work Phone: Start: 1955 Sex Assigned At Not on file S [facility] Work Phone: Start: 06-13-2012 History SDOH Alcohol Comment Couple drinks a day [facility] Start: 1955 Sex Assigned At Female C [facility] Start: 05-15-2021 End: 10-12-2022 Exposure to SARS-CoV-2 (event) Not sure [facility] Start: 10-14-2021 End: 05-27-2023 Tobacco smoking status NHIS Unknown if ever smoked [facility] Start: 07-04-2022 End: 04-07-2024 History of Social function [facility] Start: 07-04-2022 End: 04-07-2024 Tobacco use panel [facility] National Score (1-10 0), lower number is lower risk 60 [facility] Start: 04-21-2020 Gender identity Identifies as female gender (finding) [facility] How often to you hav e a drink containing alcohol? 2-3 time sa week [facility] How many standard dr inks containing alcohol do you have on a typical day? 1 or 2 [facility] How often do you hav e 6 or more drinks on 1 occasion? Never [employer] Start: 09-20-2021 Sex Female (finding) [employer] Has the [place], [employer], or water company threatened to shut off services in your home in past 12Mo No [employer] Are you now , , , , never or living with a partner? [employer] Do you feel stress - tense, restless, nervous, or anxious, or unable to sleep at night because your mind is troubled all the time - these days [OSQ] To some extent [employer] (I/We) worried wheth er (my/our) food would run out before (I/we) got money to buy more. Never true [employer] Medical Equipment Procedure Code Equipment Code Equipment Origin al Text Equipment Identifier Dates [id number] Start: 03-19-2020 End: 08-14-2024 Comment on above: TEST BLOOD SUGARS 6 TIMES DAILY; E 10.29, IDDM, USE 4 PEN NEEDLES DA MARICRUZ FOR INSULIN PEN USE TEST BLOOD SUGARS 6 TIMES DAILY SURE COMFORT PEN NEEDLES 31G X 8 MM [facility] [id number] Start: 09-01-2018 1 each by Other route 3 times daily. Use as instructed E11.9 [id number] Start: 05-02-2022 TEST BLOOD SUGAR S 6 TIMES DAILY; E 10.29, IDDM, [id number] Start: 01-21-2022 Sure Comfort Pen [place] [facility] [id number] Start: 01-21-2022 TEST BLOOD SUGAR S 6 TIMES DAILY; E 10.29, IDDM, [id number] Start: 11-08-2022 End: 06-21-2023 USE 4 PEN NEEDLE S DAILY FOR INSULIN PEN USE [id number] Start: 11-08-2022 End: 01-29-2024 TEST BLOOD SUGAR S 6 TIMES DAILY; E 10.29, IDDM, [id number] Start: 06-22-2023 End: 05-06-2024 USE 4 PEN NEEDLE S DAILY, FOR INSULIN PEN USE [id number] Start: 01-29-2024 TEST BLOOD SUGAR S 6 TIMES DAILY; E 10.29, IDDM, [id number] Start: 05-06-2024 Goals Date Patient Goal Desired Activity /State Functional Status Date Assessment Result Facility 07-28-2014 Are you deaf, or do you have serious difficulty hearing No 07/28/2014 9:57 AM EDT [facility]issaGlenwendymariam [facility] 07-28-2014 Are you blind, or do you have serious difficulty seeing, even when wearing glasses No 07/28/2014 9:57 AM EDT BrittanysteffCarol [facility] 07-28-2014 Do you have serious difficulty walking or climbing stairs No 07/28/2014 9:57 AM EDT BrittanysteffGlenwendymariam [facility] 07-28-2014 Do you have difficul ty dressing or bathing No 07/28/2014 9:57 AM EDT LarissaGlenwendymariam [facility] 07-28-2014 Because of a physica l, mental, or emotional condition, do you have difficulty doing errands alone such as visiting a physician's office or shopping No 07/28/2014 9:57 AM EDT LarissaGlenwendymariam [facility] Mental Status Date Assessment Result Facility 10-20-2021 Cognitive function Appropriate;F ollows Commands;Drowsy [facility] Work Phone: 10-20-2021 Cognitive function Arousable To Voice/Nam e [facility] Work Phone: 07-28-2014 Because of a physica l, mental, or emotional condition, do you have serious difficulty concentrating, remembering, or making decisions No 07/28/2014 9:57 AM EDT Larissa Glenpauline [facility] Clinical Notes 07-28-2014 to 08-14-2024 Lori Champion MA - 08/14/2024 1:15 PM Angelica Garner MD - 08/14/2024 1:15 PM EDTTelephone Encounter - Mary Stallings RN - 07/08/2024 9:51 AM Angelica Garner MD - 06/26/2024 9:45 AM EDT Note Date & Type Note Facility 08-14-2024 History of Presen t illness Narrative Batch Unloader was offered to 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 Burrell Essential hypertension 2009 nml ECHO 2023 H/O colonoscopy 09/2021 Dr. Олег boone ds, due 2031 History of herpes genitalis History of right breast cancer 2004 s/p lumpectomy Hx antineoplastic chemo Hypercholesterolemia Osteopenia 02/2022 at [facility], FRAX 1.7%/14% Personal history of irradiation Type 1 diabetes mellitus (HCC[facility] [[facility]] Past Surgical History: Procedure Laterality Date BREAST LUMPECTOMY Right 2004 [place] Breast COLONOSCOPY 09/2021 Dr. Олег boone ds- due 2031 COLONOSCOPY 2006 ESOPHAGOGASTRODUODENOSCOPY 09/2021 Esophageal candidiasis [3] Family History Problem Relation Name Age of Onset Other Mother in 90s Coronary artery disease Father acute [place], at age 94 No Known Problems Sister [...] mouth., Disp: , Rfl: Sure Comfort Pen [place] 31G X 8 MM [facility] [...] capsule, Rfl: 1 documented in this encounter [facility] 07-08-2024 Telephone encounter Note Form atting of this note might be different from the original. S: Patient spoke with [facility] nurse regarding vaginal odor and discharge. [...] school, work, or sleep) Protocols used: Vaginal [id number] [facility] 07-08-2024 Miscellaneous Notes Formattin g of this note might be different from the original. S: Patient spoke with [facility] nurse regarding vaginal odor and discharge. [...] school, work, or sleep) Protocols used: Vaginal [id number] documented in this encounter [facility] 07-08-2024 Telephone encounter Note Form atting of this note is different from the original. Name of caller: Cyndee Contact phone number: [phone] Relationship to Patient: [facility] Occupational Therapy Provider: Dr. Gómez Practice: [facility] Chief Complaint/Reason for Call: Patient cancelled last visit for discharge and the visit will be 07/09/24 now. States as long as agreeable no need to return call. FYI Best time of day caller can be reached: any Patient advised that office/PCP has 24-48 business hours to return their call: N/A [facility] 07-08-2024 Miscellaneous Notes Formattin g of this note is different from the original. Name of caller: Cyndee Contact phone number: [phone] Relationship to Patient: [facility] Occupational Therapy Provider: Dr. Gómez Practice: [facility] [...] Name of caller: Cyndee Contact phone number: [phone] Relationship to Patient: [facility] Occupational Therapy Provider: Dr. Gómez Practice: [facility] [...] their call: N/A documented in this encounter [facility] 06-26-2024 History of Presen t illness Narrative Chief Complaint Patient presents with Follow-up HPI: Patient is here today to discuss ultrasound. 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 Burrell Essential hypertension 2009 nml ECHO 2023 H/O colonoscopy 09/2021 Dr. Олег boone ds, due 2031 History of herpes genitalis History of right breast cancer 2004 s/p lumpectomy Hx antineoplastic chemo Hypercholesterolemia Osteopenia 02/2022 at [facility], FRAX 1.7%/14% Personal history of irradiation Type 1 diabetes mellitus (HCC[facility] Past Surgical History: Procedure Laterality Date BREAST LUMPECTOMY Right 2004 [place] Breast COLONOSCOPY 09/2021 Dr. Олег boone ds- due 2031 COLONOSCOPY 2006 ESOPHAGOGASTRODUODENOSCOPY 09/2021 Esophageal candidiasis Family History Problem Relation Name Age of Onset Other Mother in 90s Coronary artery disease Father acute [place], at age 94 No Known Problems Sister [...] mouth., Disp: , Rfl: Sure Comfort Pen [place] 31G X 8 MM [facility] [...] time. Patient reassured documented in this encounter [facility] 06-24-2024 Telephone encounter Note Form atting of this note might be different from the original. Name of caller: Cyndee Contact phone number: [phone] Relationship to Patient: Hillary [facility] Occupational Therapy Provider: Dr. Gómez Practice: [facility] [...] business hours to return their call: N/A [facility] 06-20-2024 Evaluation note Diagnosis Onset Date Resolution High cholesterol chronic June 20, 2024 1:45pm Hypertension chronic June 20 1:45pm Lower extremity edema chronic June 20, 2024 1:45pm Type 1 diabetes mellitus with hyperglycemia chronic June 20, 2024 1:45pm Venous insufficiency chronic June 20, 2024 1:45pm [facility] Work Phone: 1(141) 688-988305-01-2025 Telephone encounter Note* Telephone Encounter - Nazia Hanley - 06/20/2024 11:19 AM EDT Initiated PA for Blood-Glucose Sensor (DEXCOM G7 SENSOR) through [employer] Questions Completed/attached notes Waiting for determination Nazia Casanova Prior [facility] [facility] [place] [facility]05-01-2025 Miscellaneous Notes* Telephone Encounter - Nazia Hanley - 06/20/2024 11:19 AM EDT Initiated PA for Blood-Glucose Sensor (DEXCOM G7 SENSOR) through [employer] Questions Completed/attached notes Waiting for determination Nazia Casanova Prior [employer] [facility]ocrin[facility] Met[facility] [place] [facility] Instructions* Patient Instructions* Michael Rodriguez MD - 06/19/2024 10:57 AM EDT [facility] Health. Schedule bone density test. Will call with [...] your usual activities immediately. documented in this encounterSal[facility]04-30-2025 History of Present illness Narrative* Michael Rodriguez [...] panel, urine microalbumin/creatinine ratio Get DexCom G7 sensor/nuclear cardiology technologist Will call with results See us again in 6 months. Michael Rodriguez M.D. I spent a total of 30 minutes on the date of service which included preparing to see the patient, arrl-ay-ogep patient care, completing clinical documentation, performing a medically appropriate examination, counseling and educating the patient/family/caregiver and ordering medications, tests, or procedures. documented in this encounterSalem [facility] Medical Center04-30-2025 NoteHNO ID: [id number] Author: MICHAEL RODRIGUEZ MD Service: ? Author [...] panel, urine microalbumin/creatinine ratio (more content not included)...[facility]04-16-2025 Telephone encounter Note* Telephone Encounter - Rimma Moore - 06/05/2024 10:32 AM EDT Name of caller: Ken Contact phone number: [phone] Relationship to Patient: [facility] Provider: Dalia Practice: Arlyn Beltran Chief [...] business hours to return their call: No [facility] CenterDucrwh02-76-8956 Miscellaneous Notes* Telephone Encounter - Rimma Moore - 06/05/2024 10:32 AM EDT Name of caller: Ken Contact phone number: [phone] Relationship to Patient: [facility] Provider: Dalia Practice: Arlyn Beltran Chief [...] return their call: No documented in this [facility]04-14-2025 Telephone encounter Note* Telephone Encounter - Arianna Guzmanope - 06/03/2024 9:17 AM EDT Name of caller: Franky Contact phone number: [phone] Relationship to Patient: patient Provider: Pascual Practice: Jose Miguel Chief Complaint/Reason for Call: Pt calling to ask if the after visit summary from her 05/29/24 visit can be mailed to her address on file. Please advise. Best time of day caller can be reached: Any Patient advised that office/PCP has 24-48 business hours to return their call: [facility] CenterOnqrra05-94-0164 Miscellaneous Notes* Telephone Encounter - Arianna Kasey - 06/03/2024 9:17 AM EDT Name of caller: Franky Contact phone number: [phone] Relationship to Patient: patient Provider: Pascual Practice: Jose Miguel Chief Complaint/Reason for Call: Pt calling to ask if the after visit summary from her 05/29/24 visit can be mailed to her address on file. Please advise. Best time of day caller can be reached: Any Patient advised that office/PCP has 24-48 business hours to return their call: documented in this [place] [address]-09-2025 History of Present illness Narrative* Prisca Garner [...] Date of Last Bone Density: 02/2022 at 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 Burrell Essential hypertension 2009 nml ECHO 2023 H/O colonoscopy 09/2021 Dr. Олег boone ds, due 2031 History of herpes genitalis History of right breast cancer 2004 s/p lumpectomy Hx antineoplastic chemo Hypercholesterolemia Osteopenia 02/2022 at [facility], FRAX 1.7%/14% Personal history of irradiation Type 1 diabetes mellitus (HCC) 1974 [place] Past Surgical History: Procedure Laterality Date BREAST LUMPECTOMY Right 2004 [place] Breast COLONOSCOPY 09/2021 Dr. Олег boone ds- due 2031 COLONOSCOPY 2006 ESOPHAGOGASTRODUODENOSCOPY 09/2021 Esophageal candidiasis Family History Problem Relation Name Age of Onset Other Mother in 90s Coronary artery disease Father acute [place], at age 94 No Known Problems Sister [...] PO) Take by mouth. 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 Scar on [...] 11:55 AM (Electronically Signed) documented in this [facility]04-09-2025 History of Present illness Narrative* Prisca Garner [...] Date of Last Bone Density: 02/2022 at [facility], in [place]- osteopenia (FRAX 1.7%/14%) OB History Para Term AB Living SAB IAB Ectopic Multiple Live Births 0 Past Medical History: Diagnosis Date Anxiety and depression shelter prozac Breast cancer screening by mammogram 03/2024 [...] irradiation Type 1 diabetes mellitus (HCC) [facility] Past Surgical History: Procedure Laterality Date BREAST LUMPECTOMY Right 2005 [place] Breast COLONOSCOPY 09/2021 Dr. Taylor- paolo ds- due 2031 COLONOSCOPY 2006 ESOPHAGOGASTRODUODENOSCOPY 09/2021 Esophageal candidiasis Family History Problem Relation Name Age of Onset Other Mother in 90s Coronary artery disease Father acute [place], at age 94 No Known Problems Sister [...] PO) Take by mouth. 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 Scar on [...] 7:19 AM (Electronically Signed) documented in this [facility]04-01-2025 NoteReferral and records faxed to Dr. Stallings for patient to [facility] Telephone encounter Note* Telephone Encounter - Felecia Koroma - 05/21/2024 11:59 AM EDT Referral and records faxed to Dr. Stallings for patient to get scheduled [facility] CenterBqmlae13-24-4700 Miscellaneous Notes* Telephone Encounter - Felecia Koroma [...] the patient anappointment. Please review. 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 She stated that they occurred in front of kitchen sink. Patient stated that her sugar had crashed. No injuries reported. Best time of day caller can be reached: any Patient advised that office/PCP has 24-48 business hours to return their call: No documented in this encounterSCorey HospitalVipfbl30-15-7205 Telephone encounter Note* Telephone Encounter - Flory Granado - 05/20/2024 1:24 PM EDT Name of caller: Arina Contact phone number: [phone] Relationship to Patient: Arina Thornton [facility] Provider: Dalia Practice: [facility] Chief Complaint/Reason for Call: Arina states she [...] business hours to return their call: Yes [facility] CenterReojmn77-27-9224 Miscellaneous Notes* Telephone Encounter - Flory Granado - 05/20/2024 1:24 PM EDT Name of caller: Arina Contact phone number: [phone] Relationship to Patient: Arina Thornton [facility] Provider: Dalia Practice: [facility] Chief Complaint/Reason for Call: Arina states she [...] return their call: Yes documented in this encounterSCorey HospitalYfnudh73-94-7752 Telephone encounter Note* Telephone Encounter - Liana [...] the patient anappointment. Please review. Office Name: [facility] CenterObccde11-62-1186 Telephone encounter Note* Telephone Encounter - Vika Caputo - 05/20/2024 9:51 AM EDT Name of caller: Franky Villanueva Contact phone number: [phone] Relationship to Patient: patient Provider: Dr. Gómez Practice: [facility] Chief Complaint/Reason for Call: Patient requested the referral to Endocrinology be faxed to Dr. Stallings's office, fax number [phone], I did fax the referral. FYI, thank you. Best time of day caller can be reached: Any Patient advised that office/PCP has 24-48 business hours to return their call: N/A [facility] CenterVcsrxm71-00-6333 Miscellaneous Notes* Telephone Encounter - Vika Caputo - 05/20/2024 9:51 AM EDT Name of caller: Franky Villanueva Contact phone number: [phone] Relationship to Patient: patient Provider: Dr. Gómez Practice: [facility] Chief Complaint/Reason for Call: Patient requested the referral to Endocrinology be faxed to Dr. Stallings's office, fax number [phone], I did fax the referral. FYI, thank [...] Name of caller: Franky Contact phone number: [phone] Relationship to Patient: patient Provider: Dr. Gómez Practice: [facility] Chief Complaint/Reason for Call: Franky is calling to ask if the referral to Dr. Jose Stallings in [place] can be faxed to her office at . Please advise. Best time of day caller can be reached: Any Patient advised that office/PCP has 24-48 business hours to return their call: No documented in this [facility]03-28-2025 Telephone encounter Note* Telephone Encounter - Lorene Blackwell RN - 05/17/2024 12:06 PM EDT Notified patient of Dr Rodriguez's message. Patient verbalized understanding and all questions were answered. Encounter closed. [facility]03-28-2025 Miscellaneous Notes* Telephone Encounter - Lorene Blackwell [...] 2:18 PM EDT Received office notes from [facility]. Dr. Gómez is asking for a sooner appt due to patient's current complains. Your sooner appt was given on 06/19/2024. documented in this encounterSalem [facility] Medical Center03-28-2025 Telephone encounter Note * Telephone Encounter - Arianna Carty - 05/17/2024 9:33 AM EDT To Felecia to follow up [facility] CenterWgybaz97-52-5017 Telephone encounter Note* Telephone Encounter - Kate Ulloa - 05/17/2024 8:45 AM EDT Name of caller: Bharti Contact phone number: [phone] Relationship to Patient: [facility] Care social media sr strategy manager Provider: Dr Gómez Practice: [facility] Chief Complaint/Reason for Call: Caller reporting that the patient reported to her 2 falls that occurred on 05/15/24. She stated that they occurred in front of kitchen sink. Patient stated that her sugar had crashed. No injuries reported. Best time of day caller can be reached: any Patient advised that office/PCP has 24-48 business hours to return their call: No [facility] CenterXrxhxs13-07-7619 Telephone encounter Note* Telephone Encounter - Gabriela Jasso - 05/17/2024 8:44 AM EDT Name of caller: Franky Contact phone number: [phone] Relationship to Patient: patient Provider: Dr. Gómez Practice: [facility] Chief Complaint/Reason for Call: Franky is calling to ask if the referral to Dr. Jose Stallings in [place] can be faxed to her office at . Please advise. Best time of day caller can be reached: Any Patient advised that office/PCP has 24-48 business hours to return their call: No [facility] CenterRkzrms22-89-0889 Telephone encounter Note* Telephone Encounter - Sayda Talavera MA - 05/16/2024 4:17 PM EDT Natasha was left a detailed message and to call the office if any questions. [facility] CenterTphtnz14-99-0957 Miscellaneous Notes* Telephone Encounter - Sayda Talavera MA - 05/16/2024 4:17 PM EDT Natasha was left a detailed message and to call the office if any questions. * Telephone Encounter - Abiola Calvo RN - 05/16/2024 12:55 PM EDT S: Natasha [facility] clinical retention manager spoke with CAC nurse regarding medication question B: Onset of symptoms/concern toay A: Patient needs and verbal order for Tylenol 500 MG 2 tablets TID daily. Patient has on her medication profile and has been taking it. Call Natasha [phone]. R: Informed message would be sent to provider for review. No further needs at this time. Reason for Disposition Caller has NON-URGENT medicine question about med that PCP or specialist prescribed and triager unable to answer question Protocols used: Medication Question [id number] documented in this encounterSCorey HospitalCktukh52-70-7233 Telephone encounter Note* Telephone Encounter - Aby Lockhart MA - 05/16/2024 4:12 PM EDT I left a voice message for patient to call the office for some medication changes from Dr. Rodriguez. [facility]03-27-2025 Telephone encounter Note* Telephone Encounter - Michael [...] at bedtime. Authorizing Provider: MICHAEL RODRIGUEZ MD [facility]03-27-2025 Telephone encounter Note* Telephone Encounter - Abiola Calvo RN - 05/16/2024 12:55 PM EDT S: [facility] clinical retention manager spoke with [facility] nurse regarding medication question B: Onset of symptoms/concern toay A: Patient needs and verbal order for Tylenol 500 MG 2 tablets TID daily. Patient has on her medication profile and has been taking it. Call Natasha [phone]. R: Informed message would be sent to provider for review. No further needs at this time. Reason for Disposition Caller has NON-URGENT medicine question about med that PCP or specialist prescribed and triager unable to answer question Protocols used: Medication Question [id number] [facility] CenterFxlmda85-93-7907 Note* Addendum Note - Norberto Gómez DO - 05/16/2024 11:16 AM EDTAddended by: NORBERTO GÓMEZ on: 05/16/2024 11:16 AM Modules accepted: Orders [facility] CenterMpmfxe99-37-7688 Note* Addendum Note - Norberto Gómez DO - 05/16/2024 11:16 AM EDTAddended by: NORBERTO GÓMEZ on: 05/16/2024 11:16 AM Modules accepted: Orders [facility] CenterLwwfvt78-61-2946 Miscellaneous Notes* Addendum Note - Norberto Gómez [...] Relationship to patient: patient Contact phone number: [phone] Speciality referral requested for: Endocrinology Diagnosis or reason for referral: diabetes Name of specialist: Dr Radah Stallings in [facility] Fax number [phone] Name of group/practice: NA Patient verified insurance covers referral: Yes Patient insurance: Med A and B Has patient seen this specialist in the past: No Estimated time/date patient last saw the specialist: na Patient is requesting a call when referral is complete. documented in this encounterSCorey HospitalUynwyu09-95-1942 Note* Addendum Note - Arianna Carty - 05/16/2024 10:02 AM EDTAddended by: ARIANNA CARTY on: 05/16/2024 10:02 AM Modules accepted: Orders [facility] CenterEytlma15-82-5779 Note* Addendum Note - Arianna Carty - 05/16/2024 10:02 AM EDTAddended by: ARIANNA CARTY on: 05/16/2024 10:02 AM Modules accepted: Orders [facility] CenterHxvbqc95-10-[address] Stallings pended for dx and doctor's signatureSHenry Ford Hospital03-27-2025 Telephone encounter Note* Telephone Encounter - Arianna Carty - 05/16/2024 10:02 AM EDT Referral to Dr Stallings pended for dx and doctor's signature [facility] CenterGgwulo73-51-2411 Telephone encounter Note* Telephone Encounter - Kate Ulloa - 05/16/2024 8:46 AM EDT Name of caller: Franyk Relationship to patient: patient Contact phone number: [phone] Speciality referral requested for: Endocrinology Diagnosis or reason for referral: diabetes Name of specialist: Dr Radha Stallings in [facility] Fax number [phone] Name of group/practice: NA Patient verified insurance covers referral: Yes Patient insurance: Med A and B Has patient seen this specialist in the past: No Estimated time/date patient last saw the specialist: na Patient is requesting a call when referral is complete. [facility] CenterIwpvwj45-82-0852 Telephone encounter Note* Telephone Encounter - Aby Lockhart MA - 05/15/2024 2:18 PM EDT [facility] Gómez is asking for a sooner appt due to patient's current complains. Your sooner appt was given on 06/19/2024. [facility]03-21-2025 Telephone encounter Note* Telephone Encounter - Michael Rodriguez MD - 05/10/2024 1:46 PM EDT Reviewed. [facility]03-21-2025 Miscellaneous Notes* Telephone Encounter - Michael Rodriguez MD - 05/10/2024 1:46 PM EDT Reviewed. * Telephone Encounter - Aby Lockhart MA - 05/10/2024 11:20 AM EDT Received lab results from [facility]. Placed on docs desk for review. Please advise, thanks. documented in this encounterSalem Regional Medical Center03-21-2025 Telephone encounter Note * Telephone Encounter - Ayb Lockhart MA - 05/10/2024 11:20 AM EDT Received lab results from [facility]. Placed on docs desk for review. Please advise, thanks. [facility]03-21-2025 Miscellaneous Notes* Telephone Encounter - Sayda Talavera [...] Name of caller: Leslie Contact phone number: [phone] Relationship to Patient: [facility] Provider: Dr. Gómez Practice: [facility] Chief Complaint/Reason for Call: Leslie called in requesting uncontrolled diabetes orders for snf and PT. States verbal orders were called in but they need the orders signed/ dated and faxed over to start. States if they receive the information by tomorrow they can get patient started on Monday next week. States they also need to know who patient's fish frog or oyster farmer is. . Please Advise Best time of day caller can be reached: any Patient advised that office/PCP has 24-48 business hours to return their call: No documented in this encounterSCorey HospitalBlmqnw52-82-3565 Telephone encounter Note* Telephone Encounter - Sayda Talavera MA - 05/10/2024 10:05 AM EDT Please sign [facility] CenterYrfffy83-57-2082 Telephone encounter Note* Telephone Encounter - Sayda Talavera MA - 05/10/2024 8:33 AM EDT Left leslie a detailed message and to call the office, if Dr Gómez needs to be signing any forms. [facility] CenterCspvfm88-35-6758 Telephone encounter Note* Telephone Encounter - Sayda Talavera MA - 05/09/2024 9:03 AM EDT Left message for leslie to return my call. [facility] CenterZfkvik48-13-5205 Telephone encounter Note* Telephone Encounter - Dionne Argueta - 05/08/2024 4:08 PM EDT Name of caller: Leslie Contact phone number: [phone] Relationship to Patient: [facility] Provider: Dr. Gómez Practice: [facility] Chief Complaint/Reason for Call: Leslie called in requesting uncontrolled diabetes orders for snf and PT. States verbal orders were called in but they need the orders signed/ dated and faxed over to start. States if they receive the information by tomorrow they can get patient started on Monday next week. States they also need to know who patient's fish frog or oyster farmer is. . Please Advise Best time of day caller can be reached: any Patient advised that office/PCP has 24-48 business hours to return their call: No [place] [id number] Telephone encounter Note* Telephone Encounter - Sayda Talavera MA - 05/08/2024 3:54 PM EDT Spoke with leslie and all was addressed [place] [id number] Miscellaneous Notes* Telephone Encounter - Sayda Talavera MA - 05/08/2024 3:54 PM EDT Spoke with leslie and gui was addressed * Telephone Encounter - Eunice Carballo - 05/08/2024 12:12 PM EDT Name of caller: Leslie Contact phone number: [phone] Relationship to Patient: [facility] Provider: Dalia Practice: [facility] Chief Complaint/Reason for Call: Asking for an order to start home health with nursing and also uncontrolled diabetes. Needs updated on her order. Please Advise. Best time of day caller can be reached: Any Patient advised that office/PCP has 24-48 business hours to return their call: Yes documented in this encounterSCorey HospitalStmwat97-63-2310 Telephone encounter Note* Telephone Encounter - Eunice Carballo - 05/08/2024 12:12 PM EDT Name of caller: Leslie Contact phone number: [phone] Relationship to Patient: [facility] Provider: Dalia Practice: [facility] Chief Complaint/Reason for Call: Asking for an order to start home health with nursing and also uncontrolled diabetes. Needs updated on her order. Please Advise. Best time of day caller can be reached: Any Patient advised that office/PCP has 24-48 business hours to return their call: Yes [facility] CenterCmrgkd68-04-1780 Telephone encounter Note* Telephone Encounter - Sayda [...] Yousif RN May 06, 2024 1:31 PM [facility]03-17-2025 Miscellaneous Notes* Telephone Encounter - Sayda Yousif [...] 06, 2024 1:31 PM documented in this encounterSalem Regional Medical Center03-14-2025 Telephone encounter Note * Telephone Encounter - [...] triager answers question Protocols used: Medication Question [id number]-[id number] [facility] CenterHkeumg06-29-0877 Miscellaneous Notes* Telephone Encounter - Danielle Chao [...] triager answers question Protocols used: Medication Question [id number] documented in this [facility]03-13-2025 Telephone encounter Note* Telephone Encounter - Felecia Koroma - 05/02/2024 10:42 AM EDT Records and referral faxed [facility] CenterHdsjxk16-97-0253 Miscellaneous Notes* Telephone Encounter - Felecia Koroma - 05/02/2024 10:42 AM EDT Records and referral faxed * Telephone Encounter - Arianna Perera - 05/02/2024 10:03 AM EDT Name of caller: Leslie Contact phone number: [phone] Relationship to Patient: [facility] Provider: Practice: [facility] Chief Complaint/Reason for Call: Caller is asking for Face Sheet and office notes from last visit along with insurance information please fax to [phone] Best time of day caller can be reached: any Patient advised that office/PCP has 24-48 business hours to return their call: No documented in this [facility]03-13-2025 Telephone encounter Note* Telephone Encounter - Arianna Perera - 05/02/2024 10:03 AM EDT Name of caller: Leslie Contact phone number: [phone] Relationship to Patient: [facility] Provider: Practice: [facility] Chief Complaint/Reason for Call: Caller is asking for Face Sheet and office notes from last visit along with insurance information please fax to [phone] Best time of day caller can be reached: any Patient advised that office/PCP has 24-48 business hours to return their call: No [place] [id number] NoteReferral to MRI-Head / Homehealth PT / Psychology pended for dx and doctor's signatureSHenry Ford Hospital03-10-2025 Telephone encounter Note* Telephone Encounter - Arianna Machelle - 04/29/2024 4:41 PM EDT Referral to MRI-Head / Homehealth PT / Psychology pended for dx and doctor's signature [facility] CenterNttpxv02-43-3297 Miscellaneous Notes* Telephone Encounter - Arianna Carty - 04/29/2024 4:41 PM EDT Referral to MRI-Head / Homehealth PT / Psychology pended for dx and doctor's signature documented in this encounterSCorey HospitalJreobi13-34-5257 History of Present illness Narrative* Norberto Gómez, - 04/29/2024 3:00 PM EDT Images from the original note were not included. [facility] - [address] [facility] [id number] Visit type: Established Patient Reason [...] Physical deconditioning Comments: Multifactorial, therapy referral, possible forming acid dumper reevaluation Other orders - DULoxetine (Cymbalta) 30 [...] PO) Take by mouth. Sure Comfort Pen [place] 31G X 8 MM misc triamcinolone (Kenalog) [...] in 90s Coronary artery disease Father acute [place], at age 94 No Known Problems Sister [...] clonus. No fasciculations Vani's or Babinski. Normal inzsao-ka-wyye and Romberg testing.Tandem gait was not well [...] with no person assist. documented in this [facility]03-05-2025 Telephone encounter Note* Telephone Encounter - Mandi Jimenez RN - 04/24/2024 7:16 AM EST S: Patient's friend, Rola spoke with [facility] nurse regarding overall decline. B: Onset [...] or getting worse Protocols used: Falls and Opkuuoz-DPTYS-DN [facility] CenterAxpnhp11-40-9003 Miscellaneous Notes* Telephone Encounter - Mandi Jimenez RN - 04/24/2024 7:16 AM EST S: Patient's friend, Rola spoke with [facility] nurse regarding overall decline. B: Onset [...] or getting worse Protocols used: Falls and Mstbjnc-UPAKV-CX documented in this [facility]02-28-2025 Telephone encounter Note* Telephone Encounter - Codi - 04/19/2024 8:42 AM EST Name of Caller: Franky Relationship to Patient: Patient Contact phone number: [phone] Best time of day caller can be reached: Pt calling back answering machine will come on after 6 beeps; please leave detailed message on answering machine re results if she is unable to answer. Date testing performed/completed: Mammogram 04/16/24 Where or by whom was testing performed: [facility] Patient advised that office/PCP has 24-48 business hours to return their call: No [facility] CenterWkqntf08-42-1277 Miscellaneous Notes* Telephone Encounter - Codi Welsh - 04/19/2024 8:42 AM EST Name of Caller: Franky Relationship to Patient: Patient Contact phone number: [phone] Best time of day caller can be [...] Relationship to Patient: Patient Contact phone number: [phone] Best time of day caller can be reached: any Answering machine will come on after 6 beeps; please leave detailed message on answering machine re results if she is unable to answer. Date testing performed/completed: Mammogram 04/16/24 Where or by whom was testing performed: [facility] Patient advised that office/PCP has 24-48 business hours to return their call: Yes documented in this [facility]02-26-2025 Telephone encounter Note* Telephone Encounter - Dot Tong MA - 04/17/2024 8:40 AM EST Noted [facility] Fvwoze44-11-9416 Telephone encounter Note* Telephone Encounter - Lucia Krishnan - 04/17/2024 8:22 AM EST Name of Caller: Franky Kay Relationship to Patient: Patient Contact phone number: [phone] Best time of day caller can be reached: any Answering machine will come on after 6 beeps; please leave detailed message on answering machine re results if she is unable to answer. Date testing performed/completed: Mammogram 04/16/24 Where or by whom was testing performed: [facility] Patient advised that office/PCP has 24-48 business hours to return their call: Yes [facility] Ydqfqj62-99-5918 History of Present illness Narrative* Leslie Brandt MA - 04/16/2024 10:40 AM EST Images from the original note were not included. [address] [facility] [address] [facility] [address] @patname@ Patient arrived for nurse [...] to 4 months. Most importantly follow-up with fish frog or oyster farmer to try to obtain optimal diabetic control. documented in this [facility]02-25-2025 History of Present illness Narrative* Leslie Brandt MA - 04/16/2024 10:40 AM EST Images from the original note were not included. [address] [facility] [address] [facility] [address] @patname@ Patient arrived for nurse [...] to 4 months. Most importantly follow-up with fish frog or oyster farmer to try to obtain optimal diabetic control. * Leslie Brandt MA - 04/16/2024 10:40 AM EST Pt aware. documented in this [facility]01-29-2025 Telephone encounter Note* Telephone Encounter - Felecia Koroma - 03/20/2024 2:16 PM EST Orders pended for doctor signature [facility] CenterZxfxsq43-06-0478 Miscellaneous Notes* Telephone Encounter - Felecia Oliviaer [...] referral if she agrees documented in this encounterSCorey HospitalNhftya49-45-3975 Telephone encounter Note* Telephone Encounter - Felecia [...] ago. Please post referral if she agrees [facility] CenterOawbwu14-37-5647 History of Present illness Narrative* Norberto Gómez DO - 03/20/2024 10:30 AM EST Images from the original note were not included. [facility] - [address] [facility] [address] Visit type: Established Patient Reason [...] and venous Dopplers. Saw vascular clinic in [facility] few days ago. No surgical intervention recommended. [...] PO) Take by mouth. Sure Comfort Pen [place] 31G X 8 MM [facility] [...] in 90s Coronary artery disease Father acute [place], at age 94 No Known Problems Sister [...] echocardiogram, CXR and lab documented in this [facility]01-29-2025 Instructions* Patient Instructions* Norberto Gómez DO - 03/20/2024 10:30 AM EST Wear support hose as discussed. Recheck blood pressure with staff in 4 weeks. Call in 4 to 5 weeks in the no better in mood and motivation we will increase Prozac at that time documented in this [facility]01-14-2025 Evaluation note* Diagnosis Onset Date Resolution Status [...] Venous insufficiency chronic June 20, 2024 1:45pm [facility] Work Phone: [phone] Telephone encounter Note* Telephone Encounter - Lorene [...] Blackwell RN January 29, 2024 11:13 AM [facility]12-09-2024 Miscellaneous Notes* Telephone Encounter - Lorene [...] 29, 2024 11:13 AM [facility]11-25-2024 Miscellaneous Notes* Telephone Encounter - Natacha Westfall MA - 01/15/2024 10:38 AM EST Patient requesting refills as follows: Requested Prescriptions Pending Prescriptions Disp Refills lisinopril (ZESTRIL) 40 mg tablet 90 tablet 3 Sig: Take 1 tablet by mouth once daily. Please review and advise. Natacha Westfall MA documented in this [facility]Sal[facility] Center11-25-2024 Telephone encounter Note * Telephone Encounter - Natacha Westfall MA - 01/15/2024 10:38 AM EST Patient requesting refills as follows: Requested Prescriptions Pending Prescriptions Disp Refills lisinopril (ZESTRIL) 40 mg tablet 90 tablet 3 Sig: Take 1 tablet by mouth once daily. Please review and advise. Natacha Westfall MA [facility]09-26-2024 Note* Addendum Note - Norberto Gómez DO - 11/16/2023 5:24 PM EDTAddended by: NORBERTO GÓMEZ on: 11/16/2023 05:24 PM Modules accepted: Orders [facility] CenterThrorv62-21-1034 Note* Addendum Note - Norberto Gómez DO - 11/16/2023 5:24 PM EDTAddended by: NORBERTO GÓMEZ on: 11/16/2023 05:24 PM Modules accepted: Orders [facility] CenterPynibw26-64-8673 Note* Addendum Note - Norberto Gómez DO - 11/16/2023 5:24 PM EDTAddended by: NORBERTO GÓMEZ on: 11/16/2023 05:24 PM Modules accepted: Orders [place] [address]Qwqfej58-47-6202 Note* Addendum Note - Norberto Gómez DO - 11/16/2023 5:24 PM EDTAddended by: NORBERTO GÓMEZ on: 11/16/2023 05:24 PM Modules accepted: Orders [place] [address]Umtapx98-60-0722 Note* Addendum Note - Norberto Gómez DO - 11/16/2023 5:24 PM EDTAddended by: NORBERTO GÓMEZ on: 11/16/2023 05:24 PM Modules accepted: Orders [address]Juoyxe06-10-1484 Note* Addendum Note - Norberto Gómez DO - 11/16/2023 5:24 PM EDTAddended by: NORBERTO GÓMEZ on: 11/16/2023 05:24 PM Modules accepted: Orders [facility] CenterJvmsbn89-08-8845 Note* Addendum Note - Norberto Gómez DO - 11/16/2023 5:24 PM EDTAddended by: NORBERTO GÓMEZ on: 11/16/2023 05:24 PM Modules accepted: Orders [facility] CenterIxnwll52-31-6758 NoteAddended by: NORBERTO GÓMEZ on: 11/16/2023 05:24 PM Modules accepted: [facility]09-26-2024 Miscellaneous Notes* Addendum Note - Norberto Gómez [...] Name of caller: franky Contact phone number: [phone] Relationship to Patient: patient Provider: dalia [facility]: [facility] Chief Complaint/Reason for Call: Pt states is needing a referral to a doctor in [place] [facility]. Please advise. Best time of day caller can be reached: AM Patient advised that office/PCP has 24-48 business hours to return their call: Yes * Telephone Encounter - Maryam Galicia - 11/15/2023 9:08 AM EDT Name of caller: Franky Contact phone number: [phone] Relationship to Patient: patient Provider: Dr. Gómez Practice: Chief Complaint/Reason for Call: PT would like to talk to the office basil to discuss her referral the was updated in her records. Peripheral edema Best time of day caller can be reached: any Patient advised that office/PCP has 24-48 business hours to return their call: No documented in this [facility]09-26-2024 Note* Addendum Note - Arianna Carty - 11/16/2023 1:22 PM EDTAddended by: ARIANNA CARTY on: 11/16/2023 01:22 PM Modules accepted: Orders [facility] CenterCjzghd11-53-3661 Note* Addendum Note - Arianna Carty - 11/16/2023 1:22 PM EDTAddended by: ARIANNA CRATY on: 11/16/2023 01:22 PM Modules accepted: Orders [place] [address]Udwvxy14-36-0481 Note* Addendum Note - Arianna Carty - 11/16/2023 1:22 PM EDTAddended by: ARIANNA CARTY on: 11/16/2023 01:22 PM Modules accepted: Orders [place] [address]Egpgvi75-85-6190 Note* Addendum Note - Arianna Carty - 11/16/2023 1:22 PM EDTAddended by: ARIANNA CARTY on: 11/16/2023 01:22 PM Modules accepted: Orders [facility] CenterJtjyyr60-21-4682 Note* Addendum Note - Arianna Carty - 11/16/2023 1:22 PM EDTAddended by: ARIANNA CARTY on: 11/16/2023 01:22 PM Modules accepted: Orders [place] [address]Lyfqql16-92-1282 Note* Addendum Note - Arianna Carty - 11/16/2023 1:22 PM EDTAddended by: ARIANNA CARTY on: 11/16/2023 01:22 PM Modules accepted: Orders [place] [address]Beartq36-11-7467 Note* Addendum Note - Arianna Carty - 11/16/2023 1:22 PM EDTAddended by: ARIANNA CARTY on: 11/16/2023 01:22 PM Modules accepted: Orders [facility] CenterNspxey41-89-6617 NoteAddended by: ARIANNA CARTY on: 11/16/2023 01:22 PM Modules accepted: [facility]09-26-[address] Chen pended for doctor's signatureSHen[facility] Hospital09-26-2024 Telephone encounter Note* Telephone Encounter - Arianna Carty - 11/16/2023 1:21 PM EDT Referral to Dr Chen pended for doctor's signature [place] [address]Ngcusf66-03-[address] Gómez for referralSHenry Ford Hospital09-26-2024 Telephone encounter Note* Telephone Encounter - Arianna Carty - 11/16/2023 11:47 AM EDT Forward to Dr Gómez for referral [place] [address]Kfwxtq07-66-4518 Telephone encounter Note* Telephone Encounter - Sayda Talavera MA - 11/16/2023 11:08 AM EDT Spoke with patient she does not want OT she wants some who specializes in lymphedema [facility] CenterRitofl75-86-5053 NotePlease verify with patient if she is [...] has mentioned both in the previous messages. [place] [address]Oqblim11-25-3691 Telephone encounter Note* Telephone Encounter - Nova Whipple - 11/15/2023 10:34 AM EDT Name of caller: franky Contact phone number: [phone] Relationship to Patient: patient Provider: dalia Practice: [facility] Chief Complaint/Reason for Call: Pt states is needing a referral to a doctor in [place] that is M.Dwith a specialty of lymphedema. Please advise. Best time of day caller can be reached: AM Patient advised that office/PCP has 24-48 business hours to return their call: Yes [facility] CenterKyzmfj80-20-8127 Miscellaneous Notes* Telephone Encounter - Nova Alemanchiki - 11/15/2023 10:34 AM EDT Name of caller: franky Contact phone number: [phone] Relationship to Patient: patient Provider: dalia Practice: [facility] Chief Complaint/Reason for Call: Pt states is needing a referral to a doctor in [place] that is M.Dwith a specialty of lymphedema. Please advise. Best time of day caller can be reached: AM Patient advised that office/PCP has 24-48 business hours to return their call: Yes * Telephone Encounter - Maryam Galicia - 11/15/2023 9:08 AM EDT Name of caller: Franky Contact phone number: [phone] Relationship to Patient: patient Provider: Dr. Gómez Practice: Chief Complaint/Reason for Call: PT would like to talk to the office basil to discuss her referral the was updated in her records. Peripheral edema Best time of day caller can be reached: any Patient advised that office/PCP has 24-48 business hours to return their call: No documented in this [facility]09-25-2024 Telephone encounter Note* Telephone Encounter - Maryam Galicia - 11/15/2023 9:08 AM EDT Name of caller: Franky Contact phone number: [phone] Relationship to Patient: patient Provider: Dr. Gómez Practice: Chief Complaint/Reason for Call: PT would like to talk to the office basil to discuss her referral the was updated in her records. Peripheral edema Best time of day caller can be reached: any Patient advised that office/PCP has 24-48 business hours to return their call: No [facility] CenterQtdutg27-44-6374 Note* Addendum Note - Norberto Gómez DO - 11/13/2023 12:31 PM EDTAddended by: NORBERTO GÓMEZ on: 11/13/2023 12:31 PM Modules accepted: Orders [facility] CenterCbcpac05-29-9369 Note* Addendum Note - Norberto Gómez DO - 11/13/2023 12:31 PM EDTAddended by: NORBERTO GÓMEZ on: 11/13/2023 12:31 PM Modules accepted: Orders [place] [address]Gajhjt07-41-9544 Note* Addendum Note - Norberto Gómez DO - 11/13/2023 12:31 PM EDTAddended by: NORBERTO GÓMEZ on: 11/13/2023 12:31 PM Modules accepted: Orders [facility] CenterSzejzy73-70-8516 NoteAddended by: NORBERTO GÓMEZ on: 11/13/2023 12:31 PM Modules accepted: [facility]09-23-2024 Miscellaneous Notes* Addendum Note - Norberto Gómez [...] Name of caller: Franky Contact phone number: [phone] Relationship to Patient: patient Provider: Practice: [facility] Chief Complaint/Reason for Call: Patient calling and states her referral to OT, needs to say Lymphedema specialist specifically. Please send new referral. Best time of day caller can be reached: any Patient advised that office/PCP has 24-48 business hours to return their call: no documented in this encounterSCorey HospitalBfdjnj76-35-5578 Note* Addendum Note - Arianna Carty - 11/13/2023 10:17 AM EDTAddended by: ARIANNA CARTY on: 11/13/2023 10:17 AM Modules accepted: Orders [facility] CenterWasden43-63-7481 Note* Addendum Note - Arianna Carty - 11/13/2023 10:17 AM EDTAddended by: ARIANNA CARTY on: 11/13/2023 10:17 AM Modules accepted: Orders [facility] CenterKrgego48-30-9176 Note* Addendum Note - Arianna Carty - 11/13/2023 10:17 AM EDTAddended by: ARIANNA CARTY on: 11/13/2023 10:17 AM Modules accepted: Orders [facility] CenterXnhboe65-58-0688 NoteAddended by: ARIANNA CARTY on: 11/13/2023 10:17 AM Modules accepted: [facility]09-23-2024 NoteUpdated referral pended for doctor's signatureSHenry Ford Hospital09-23-2024 Telephone encounter Note* Telephone Encounter - Arianna Carty - 11/13/2023 10:17 AM EDT Updated referral pended for doctor's signature [facility] CenterZkfzhn25-97-6554 Telephone encounter Note* Telephone Encounter - Laura Holder - 11/10/2023 11:30 AM EDT Name of caller: Franky Contact phone number: [phone] Relationship to Patient: patient Provider: Practice: [facility] Chief Complaint/Reason for Call: Patient calling and states her referral to OT, needs to say Lymphedema specialist specifically. Please send new referral. Best time of day caller can be reached: any Patient advised that office/PCP has 24-48 business hours to return their call: no [facility] CenterOxyphl12-86-9322 Miscellaneous Notes* Telephone Encounter - Laura Holder - 11/10/2023 11:30 AM EDT Name of caller: Franky Contact phone number: [phone] Relationship to Patient: patient Provider: Practice: [facility] Chief Complaint/Reason for Call: Patient calling and states her referral to OT, needs to say Lymphedema specialist specifically. Please send new referral. Best time of day caller can be reached: any Patient advised that office/PCP has 24-48 business hours to return their call: no documented in this encounterSCorey HospitalExbhue59-29-1991 Telephone encounter Note* Telephone Encounter - Lorene [...] recent labs completed in chart? Yes None [facility] CenterJqkzlv80-26-2705 Miscellaneous Notes* Telephone Encounter - Lorene Montana [...] in chart? Yes None documented in this [facility]09-17-2024 NoteReferral to Hillary OT pended for dx and doctor's signatureSHenry [facility] Hospital09-17-2024 Telephone encounter Note* Telephone Encounter - Arianna Carty - 11/07/2023 9:07 AM EDT Referral to [place] OT pended for dx and doctor's signature [facility] CenterVafrrs66-79-5934 Miscellaneous Notes* Telephone Encounter - Arianna Carty [...] sure REFERRAL IS FOR LYMPHEDEMA CLINIC IN [facility]. Please call patient and advise where referral is for so she can follow up. * Telephone Encounter - Porsha Cuadra - 11/05/2023 9:37 AM EDT Name of caller: Franky Contact phone number: [phone] Relationship to Patient: patient Provider: Dr Gómez Practice: [facility] Chief Complaint/Reason for Call: Patient Franky Villanueva called in asking if Dr Gómez can write a referral for her to go to a lymphedema clinic and if possible a clinic in or close to the [facility].Please advise. Best time of day caller can be reached: any Patient advised that office/PCP has 24-48 business hours to return their call: N/A documented in this encounterSCorey HospitalRxwpkb38-48-9732 NotePatient's further questions if applicable: Patient called back 11/07/23 to follow up as to whether referral is complete. Patient was advised that it takes 24-48 hours to coordinate the referral and the place of referral will reach out to her once they receive. Patient wants to be sure REFERRAL IS FOR LYMPHEDEMA CLINIC IN [facility]. Please call patient and advise where referral [...] sure REFERRAL IS FOR LYMPHEDEMA CLINIC IN [facility]. Please call patient and advise where referral is for so she can follow up. [facility] CenterDpqecp47-22-2233 Telephone encounter Note* Telephone Encounter - Porsha Cuadra - 11/05/2023 9:37 AM EDT Name of caller: Franky Contact phone number: [phone] Relationship to Patient: patient Provider: Dr Gómez Practice: [facility] Chief Complaint/Reason for Call: Patient Franky Villanueva called in asking if Dr Gómez can write a referral for her to go to a lymphedema clinic and if possible a clinic in or close to the [facility].Please advise. Best time of day caller can be reached: any Patient advised that office/PCP has 24-48 business hours to return their call: N/A [facility] CenterRycrsj67-05-4566 Telephone encounter Note* Telephone Encounter - Aby [...] Lockhart MA November 03, 2023 8:20 AM [facility]09-13-2024 Miscellaneous Notes* Telephone Encounter - Aby Lockhart [...] 03, 2023 8:20 AM documented in this encounterSalem Regional Medical Center08-22-2024 Telephone encounter Note * Telephone Encounter - Marvin Simmons - 10/12/2023 7:05 AM EDT . [address]Gyfeqr95-23-9095 Miscellaneous Notes* Telephone Encounter - Marvin Simmons - 10/12/2023 7:05 AM EDT . documented in this encounterSCorey HospitalUvdlqp61-47-9807 Telephone encounter Note* Telephone Encounter - Felecia Koroma - 10/10/2023 11:23 AM EDT Orders pended for doctor signature [address]Nytdft56-86-3504 Miscellaneous Notes* Telephone Encounter - Felecia Koroma [...] for same complaint.Prescribed Flagyl but did not oyster picker prescription at that time. Denies fever, abdominal [...] (i.e., yellow, green, perera) Protocols used: Vaginal Mlerdbfyh-EUEEE-IA documented in this [place] [address]-20-2024 Telephone encounter Note* Telephone Encounter - Felecia Koroma - 10/10/2023 11:22 AM EDT Orders pended for doctor signature [address]Qoebbu06-08-4451 Miscellaneous Notes* Telephone Encounter - Felecia Koroma - 10/10/2023 11:22 AM EDT Orders pended for doctor signature documented in this [address]20-2024 Telephone encounter Note* Telephone Encounter - Sayda Talavera MA - 10/10/2023 11:10 AM EDT Placed call to patient. Two patient identifers confirmed. Was able to speak to patient. All concerns in message have been addressed. No questions at this time. Call ended Pt would like referral [address]Ilvmny40-21-3258 Telephone encounter Note* Telephone Encounter - Pam Rossi RN - 10/10/2023 9:53 AM EDT S: Patient spoke with [facility] nurse regarding dark vaginal spotting B: Onset of symptoms/concern 6 months A: Has a thin dark perera vaginal discharge with mild odor. Seen in office on 05/29 for same complaint.Prescribed Flagyl but did not oyster picker prescription at that time. Denies fever, abdominal [...] (i.e., yellow, green, perera) Protocols used: Vaginal Nqcyinojp-LFIWR-FC [place] [address]Rhamou09-76-3658 Telephone encounter Note* Telephone Encounter - Feleciamariam Koroma - 09/29/2023 7:22 AM EDT Orders pended for doctor signature [place] [address]Vkyorz76-20-7156 Miscellaneous Notes* Telephone Encounter - Felecia Koroma - 09/29/2023 7:22 AM EDT Orders pended for doctor signature documented in this encounterSJulie [place] [address]Hsctxt83-99-9611 History of Present illness Narrative* Norberto Gómez DO - 09/28/2023 3:00 PM EDT Images from the original note were not included. [facility] [address] [place] [address] [address] [facility] [address] Visit type: Established Patient Reason [...] PO) Take by mouth. Sure Comfort Pen [place] 31G X 8 MM misc triamcinolone (Kenalog) [...] in 90s Coronary artery disease Father acute [place], at age 94 No Known Problems Sister [...] and liver function normal. documented in this encounterSCorey HospitalKaucjm37-75-0052 Telephone encounter Note* Telephone Encounter - Mary Stallings RN - 08/30/2023 6:52 AM EDT S: Patient spoke with [facility] nurse regarding upcoming labs. B: 10/12/23. [...] hour duration, mild itching.) Protocols used: Vaginal Agaqajdp-YTOEQ-QF [facility] CenterOuezgu00-61-7417 Miscellaneous Notes* Telephone Encounter - Mary Stallings RN - 08/30/2023 6:52 AM EDT S: Patient spoke with [facility] nurse regarding upcoming labs. B: 10/12/23. [...] hour duration, mild itching.) Protocols used: Vaginal Lkjzotff-UWVQY-XW documented in this [facility]06-25-2024 Telephone encounter Note* Telephone Encounter - Sayda Talavera MA - 08/15/2023 11:48 AM EDT Pt sent message in my chart [facility] CenterYjzmah78-59-2860 Miscellaneous Notes* Telephone Encounter - Sayda Talavera MA - 08/15/2023 11:48 AM EDT Pt sent message in my chart * Telephone Encounter - Blank Martines - 08/15/2023 9:49 AM EDT Name of caller: Franky Contact phone number: [phone] Relationship to Patient: patient Provider: Dr Gómez Practice: [facility] Chief Complaint/Reason for Call: Franky called and [...] return their call: Yes documented in this [facility]06-25-2024 Telephone encounter Note* Telephone Encounter - Blank Martines - 08/15/2023 9:49 AM EDT Name of caller: Franky Contact phone number: [phone] Relationship to Patient: patient Provider: Dr Gómez Practice: [facility] Chief Complaint/Reason for Call: Franky called and [...] business hours to return their call: Yes [facility] CenterVbdfea99-14-3871 Telephone encounter Note* Telephone Encounter - Ani Nuñez Tati - 07/21/2023 2:20 PM EDT Name of caller: Franky Contact phone number: [phone] Relationship to Patient: Patient Provider: Dr. Gómez [...] business hours to return their call: No [facility] CenterPrpuqs69-08-7178 Miscellaneous Notes* Telephone Encounter - Ani Joaquin Duffy - 07/21/2023 2:20 PM EDT Name of caller: Franky Contact phone number: [phone] Relationship to Patient: Patient Provider: Dr. Gómez [...] return their call: No documented in this encounterSCorey HospitalLiccqi51-83-8100 Evaluation + Plan note* Assessment & Plan [...] versus daily alcohol use versus cardiac etiology. [facility] CenterErbyfq83-40-1090 Miscellaneous Notes* Assessment & Plan Note - [...] for ongoing peripheral edema documented in this [facility]05-30-2024 Evaluation + Plan note* Assessment & Plan Note - Allen Rapp PA-C - 07/20/2023 1:04 PM EDTAssociated Problem(s): Primary hypertension Stable well-controlled continue on lisinopril 40 mg daily and increasing Lasix 40 mg daily for ongoing peripheral edema [facility] CenterPtcowl29-01-1330 History of Present illness Narrative* Allen Rapp PA-C - 07/20/2023 11:20 AM EDT Images from the original note were not included. [facility] [address] [facility] [address] Dept: [phone] Dept Chief Complaint: Franky Villanueva is an [...] PO) Take by mouth. Sure Comfort Pen [place] 31G X 8 MM mis triamcinolone (Kenalog) [...] (Family Medicine) Allen Rapp PA-C as Physician Distillery Miller Helper (Physician Distillery Miller Helper) Orders Placed This Encounter Procedures US abdomen [...] occasional use of whiskey. documented in this [facility]05-30-2024 Instructions* Patient Instructions* Allen Rapp PA-C - [...] to get it scheduled. Their number is [phone]. Personalized Preventative Plan for Franky Villanueva - [...] Recommendations: A preventive eye exam by an grocery specialist is recommended every 1-2 years to screen for glaucoma, cataracts, macular degeneration, and other eye disorders. A preventive dental visit is recommended every 6 months. Try to get at least 150 minutes of exercise per week or 10,000 steps per day on a pedometer. You need 1200-1500mg of calcium and 3241-1001 international units of vitamin D per day. [...] bicycle or a motorcycle documented in this [facility]05-22-2024 History of Present illness Narrative* Norberto Gómez, - 07/12/2023 11:00 AM EDT Images from the original note were not included. [facility]ICINE [address] [place] [address] [address] [facility] [address] Visit type: Established Patient Reason [...] and venous Dopplers of her legs. 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 Sure Comfort Pen [place] 31G X 8 MM [facility] [...] in 90s Coronary artery disease Father acute [place], at age 94 Parkinsonism Brother 75 Breast [...] and renal function normal documented in this [facility]05-01-2024 Telephone encounter Note* Telephone Encounter - Lorene [...] Please review and advise. Lorene Blackwell RN [facility]05-01-2024 Miscellaneous Notes* Telephone Encounter - Lorene Blackwell [...] advise. Lorene Blackwell RN documented in this encounterSalem Regional Medical Center04-26-2024 Instructions* Patient Instructions* Michael Rodriguez MD - 06/16/2023 11:50 AM EDT A1C 9.6% Start vitamin D3 2000 units daily, OTC. Take insulin for all carbohydrate intake. Get labs done at [facility] Will call with results. See me again in 6 months. Try furosemide 20 mg daily for several days in a row, instead of hydrochlorothiazide. Suction cup bars for the shower +/- shower chair. documented in this encounterSalem Regional Medical Center04-26-2024 History of Present illness Narrative* Michael Rodriguez MD - 06/16/2023 11:39 AM EDT Follow-up 68 year-old female, patient of Dr. Nroberto Gómez, with type 1 diabetes mellitus since [...] which included preparing to see the patient, hjsu-rm-dhyi patient care, completing clinical documentation, performing a medically appropriate examination, counseling and educating the patient/family/caregiver and ordering medications, tests, or procedures. documented in this encounterSalem Regional Medical Center04-09-2024 Telephone encounter Note * Telephone Encounter - Feleciamariam Koroma - 05/30/2023 4:45 PM EDT Orders pended for doctor signature [facility] CenterFfeicu44-33-9847 Miscellaneous Notes* Telephone Encounter - Felecia Koroma - 05/30/2023 4:45 PM EDT Orders pended for doctor signature documented in this [facility]04-09-2024 History of Present illness Narrative* Norberto Gómez DO - 05/30/2023 4:00 PM EDT Images from the original note were not included. [facility] [address] [place] [address] [address] [facility] [address] Visit type: Established Patient Reason [...] PO) Take by mouth. Sure Comfort Pen [place] 31G X 8 MM misc [DISCONTINUED] FLUoxetine [...] in 90s Coronary artery disease Father acute [place], at age 94 Parkinsonism Brother 75 Breast [...] and no vaginal masses documented in this [facility]04-06-2024 Hospital Discharge instructions Additional Instructions You have [...] softeners as needed such as MiraLAX or Colace.[facility] Work Phone: [phone]) 163-694703-12-2024 Evaluation + Plan note* Assessment & Plan [...] is avoid as much sodium as possible. [facility] CenterXnhgap08-93-3168 Miscellaneous Notes* Assessment & Plan Note - [...] elevated, recheck was normal. documented in this [facility]03-12-2024 Evaluation + Plan note* Assessment & Plan Note - Ramsey Greer MD - 05/02/2023 1:08 PM EDT Associated Problem(s): Primary hypertension Blood pressure was initially elevated, recheck was normal. [facility] CenterCvzsna34-43-3923 History of Present illness Narrative* Misa Godoy [...] MD 05/02/2023 1:11 PM documented in this [facility]03-11-2024 Telephone encounter Note* Telephone Encounter - Kaitlin [...] period? no Protocols used: Leg Swelling and [place]-PZHQH-DN [facility] CenterWwrnoq07-07-1093 Miscellaneous Notes* Telephone Encounter - Kaitlin Lipscomb [...] period? no Protocols used: Leg Swelling and Fwogr-CTQII-UK documented in this encounterSCorey HospitalQeouax39-71-0379 Telephone encounter Note* Telephone Encounter - Anna Cisneros MA - 04/10/2023 10:33 AM EST Noted [facility] CenterAkgkrt52-27-1611 Miscellaneous Notes* Telephone Encounter - Anna Cisneros [...] chronic (unchanged) Protocols used: Leg Swelling and Jdbof-PZKGY-CU documented in this encounterSCorey HospitalAmrfbs61-43-2360 Telephone encounter Note* Telephone Encounter - Trinidad [...] chronic (unchanged) Protocols used: Leg Swelling and Tuajv-MUUJC-WX [facility] CenterIyjezr77-69-5250 Evaluation + Plan note* Assessment & Plan Note - Lizz Whitfield MD - 11/16/2022 11:08 AM EDTAssociated Problem(s): Vitamin D deficiency - gave patient an order to have her Vitamin D level checked in a month to determine ongoing dosing when she has completed 8 weeks of the high dose therapy [facility] CenterQqmqcg09-19-8939 Miscellaneous Notes* Assessment & Plan Note - [...] for her memory loss documented in this [facility]09-27-2023 Evaluation + Plan note* Assessment & Plan Note - Lizz Whitfield MD - 11/16/2022 11:07 AM EDT Associated Problem(s): Caregiver stress - provided info on VA services for if he ever needs it to alleviate some of patient's worryabout the future [facility] CenterGtyzpw10-48-1901 Evaluation + Plan note* Assessment & Plan Note - Lizz Whitfield MD - 11/16/2022 11:06 AM EDTAssociated Problem(s): Anxiety - highly recommended seeing both a psychiatrist and a psychologist to manage anxiety - patient agreeable - we gave her a list of providers in her area that offer both services - reviewed that anxiety is likely the reason for her memory loss [facility] CenterIdyhhj03-23-9168 History of Present illness Narrative* Lizz Whitfield MD - 11/16/2022 10:45 AM EDT Images from the original note were not included. [facility] [address] [facility] [address] Dept: [phone] Dept Loc: [phone] Visit type: [facility] Family Summary Conference Reason for Visit: Memory [...] each 0 ergocalciferol (Vitamin D-2) 1.25 MG (93942 UT) capsule Take 1 capsule (1.25 mg) [...] doses. 90 tablet 1 Sure Comfort Pen [place] 31G X 8 MM misc No current facility-administered medications for this visit. Past Medical History: Diagnosis Date Breast cancer screening by mammogram 06/2022 Essential hypertension 2009 H/O colonoscopy 09/2021 Dr. Олег boone ds, due 2031 History of herpes genitalis History of right breast cancer 2004 s/p lumpectomy Type [facility] Social History Tobacco Use Smoking status: Never Smokeless tobacco: Never Substance Use Topics Alcohol use: Yes Past Surgical History: Procedure Laterality Date BREAST LUMPECTOMY Right 2004 [place] Breast COLONOSCOPY 09/2021 Dr. Олег boone ds- due 2031 COLONOSCOPY 2006 ESOPHAGOGASTRODUODENOSCOPY 09/2021 Esophageal candidiasis Family History Problem Relation Name Age of Onset Other Mother in 90s Coronary artery disease Father acute [place], at age 94 Parkinsonism Brother 75 Breast [...] for: FOLATE Lab Results Component Value Date [id number] 10/12/2022 No results found for: RPR [...] Disorder Sleep Getting a Good Night's Sleep ([facility]) Sleep Hygiene Driving Driving And Older Adults - [facility] VA Aide and Attendance information Lifeline (for spouse) documented in this [facility]09-27-2023 Instructions* Patient Instructions* Lizz Whitfield MD - [...] out the next dose. documented in this [facility]09-19-2023 History of Present illness Narrative* Erin Greer [...] hypertension, hyperlipidemia, retinopathy and microalbuminuria, osteopenia RECOMMENDATIONS: (E10.2543) Type 1 diabetes mellitus with mild nonproliferative [...] Level: 4 - Moderate Erin Greer, MSN, CARE PARTNER, FOOD AND BEVERAGE ATTENDANT-C, CDE Endocrinology [facility] Medical Office Building/[address], [address] [place] [address] Fax: documented in this encounterSalem Regional Medical Center08-24-2023 Telephone encounter Note * Telephone Encounter - Lizz Whitfield MD - 10/13/2022 9:42 AM EDT See labs. Vitamin d level 10 [facility] CenterDaglfk84-77-4452 Miscellaneous Notes* Telephone Encounter - Lizz Whitfield MD - 10/13/2022 9:42 AM EDT See labs. Vitamin d level 10 documented in this [facility]08-23-2023 History of Present illness Narrative* Lizz Whitfield MD - 10/12/2022 9:45 AM EDT Images from the original note were not included. [facility] [address] [facility] [address] Dept: [phone] Dept Loc: [phone] Visit type: [facility] Initial Assessment Visit Date: 10/12/2022 Reason for [...] (Vit D 25) 4. Caregiver stress - [place] will provide info about the VA if it's ever needed - consider lifeline for spouse since she worries about him falling 5. Sleep disorder - suspect mood is impacting her sleep - again- will highly recommend psychologist/psychiatrist Follow up for Family Summary Conference. Subjective HPI: Franky Villanueva is a 67 y.o. female who presents to the [facility] for a comprehensive geriatric assessment. The patient [...] long time. Went to a healthcenter in [place] to see Dr. Kline at [facility]- psychologist. She had her come with [...] burning things. 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 Washes her hands a lot. Washes them [...] times daily at meals. Sure Comfort Pen [place] 31G X 8 MM misc atorvastatin (Lipitor) [...] lumpectomy Type 1 diabetes mellitus (HCC) [facility] Social History Tobacco Use Smoking status: Never Smokeless tobacco: Never Substance Use Topics Alcohol use: Yes Past Surgical History: Procedure Laterality Date BREAST LUMPECTOMY Right 2004 [place] Breast COLONOSCOPY 09/2021 Dr. Олег boone ds- due 2031 COLONOSCOPY 2007 ESOPHAGOGASTRODUODENOSCOPY 09/2021 Esophageal candidiasis Family History Problem Relation Name Age of Onset Other Mother in 90s Coronary artery disease Father acute [place], at age 94 Parkinsonism Brother 75 Breast [...] edema. 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 Activities: watches tv, talks on phone with friend daily, gets together with other friends Exercise: none Finances: not reviewed Healthcare Power of Oracle Database Analyst: Yes: spouse Financial Power of Oracle Database Analyst: Yes: spouse Living Will: Yes Guardian: No [...] Diet Healthy Nutrition for Older Adults - [facility] Injury Prevention/Home Safety [facility] Home Safety Checklist Medications Medication Safety/Dispensers Behavioral Health Support Generalized Anxiety Disorder Sleep Getting a Good Night's Sleep ([facility]) Sleep Hygiene Driving Driving And Older Adults - [facility] Aide and Attendance information Lifeline (for spouse) documented in this encounterSCorey HospitalIdawxh19-32-1590 Telephone encounter Note* Telephone Encounter - Iliana Morgan - 09/20/2022 3:54 PM EDT Scheduled 10/12. [facility] CenterErfhqb34-65-0596 Miscellaneous Notes* Telephone Encounter - Iliana Morgan - 09/20/2022 3:54 PM EDT Scheduled 10/12. * Telephone Encounter - Mary Capps - 09/15/2022 9:33 AM EDT Name of caller: Franky Contact phone number: [phone] Relationship to Patient: patient Provider: Dr Whitfield Practice: [facility] Chief Complaint/Reason for Call: pt is asking [...] return their call: Yes documented in this encounterSCorey HospitalZvrtcc38-50-1570 Telephone encounter Note* Telephone Encounter - Mary Capps - 09/15/2022 9:33 AM EDT Name of caller: Franky Contact phone number: [phone] Relationship to Patient: patient Provider: Dr Whitfield Practice: [facility] Chief Complaint/Reason for Call: pt is asking for a new patient appointment. Pt has had Type 1 Diabetes since college (1974 or so) and is wondering if that has any impact on her mental status. Please advise, thank you. Best time of day caller can be reached: AM Patient advised that office/PCP has 24-48 business hours to return their call: Yes [facility] CenterBmgkeo00-96-3741 History of Present illness Narrative* Norberto Gómez DO - 07/04/2022 1:30 PM EDT Images from the original note were not included. [facility] [address] [facility] [address] Dept: [phone] Dept Chief Complaint: Franky Villanueva is an [...] times daily at meals. Sure Comfort Pen [place] 31G X 8 MM misc atorvastatin (Lipitor) [...] breast exam next visit. documented in this [facility]05-02-2023 Miscellaneous Notes* Letter - Mammography Coordinator - 06/21/2022 12:25 PM EDT [facility] [address] [place] [address] June 21, 2022 PID: [id number] Franky Sánchez [address] [place] [address] Dear Ms. Villanueva, We are pleased to [...] report will be kept on file at [facility] as part of your permanent medical record and are available for your continuing care. Thank you for allowing us to help in meeting your health care needs. Sincerely, Dr. Felipe Interpreting [facility] (Normal over 40) documented in this encounterSalem Regional Medical Center03-13-2023 Telephone encounter Note * Telephone Encounter - SONA Mcdonald NP - 05/02/2022 11:56 AM EDT Rx sent The patient's medical record is available to the vt and a thorough review of the medical chart yielded: -The establishment of the patient s identity and location and informed consent; -A medical evaluation has been completed and conducted within 24 months by the [facility] healthcare provider for whom I am covering; -The diagnosis and treatment plan have been confirmed and refilling this medication is necessary and appropriate in my professional judgment; and -An appropriate medical evaluation was completed [facility] CenterOizjpx38-76-3256 Miscellaneous Notes* Telephone Encounter - SONA Mcdonald NP - 05/02/2022 11:56 AM EDT Rx sent The patient's medical record is available to the vt and a thorough review of the medical chart yielded: -The establishment of the patient s identity and location and informed consent; -A medical evaluation has been completed and conducted within 24 months by the [facility] healthcare provider for whom I am covering; [...] Name of caller: Franky Contact phone number: [phone] Relationship to Patient: patient Provider: Dr. Gómez Practice: [facility] [place] Chief Complaint/Reason for Call: Patient calling in [...] return their call: Yes documented in this encounterSCorey HospitalMmwgiy71-43-2889 Telephone encounter Note* Telephone Encounter - Stefanie Valera RN - 05/02/2022 11:30 AM EDT Rx loaded Last ov 03/29/2022 No next ov at this time [facility] CenterGzxday32-87-1049 Telephone encounter Note* Telephone Encounter - Nida Sy - 05/02/2022 11:10 AM EDT Name of caller: Franky Contact phone number: [phone] Relationship to Patient: patient Provider: Dr. Gómez Practice: [facility] Chief Complaint/Reason for Call: Patient calling in [...] business hours to return their call: Yes [facility] Wzfvyh57-81-6451 Telephone encounter Note* Telephone Encounter - Arianna Carty - 04/14/2022 9:08 AM EST No auth needed. [facility]axed orders to [facility]-Scheduling for pt to be sched - [facility] will sched/advise pt [facility] CenterBrzpec12-97-4785 Miscellaneous Notes* Telephone Encounter - Arianna Carty - 04/14/2022 9:08 AM EST No auth needed. Faxed orders to [facility]-Scheduling for pt to be sched - [...] Name of caller: franky Contact phone number: [phone] Relationship to Patient: patient Provider: supriya Practice: [facility] Chief Complaint/Reason for Call: pt called in to ask if it would be possible to have the zolfbmphvw32hs called in as capsule form due to [...] return their call: No documented in this encounterSCorey HospitalRypjvv93-34-3584 Telephone encounter Note* Telephone Encounter - Arianna Carty - 04/14/2022 9:07 AM EST No auth needed. Faxed orders to [facility]-Scheduling for pt to be sched - [facility] will sched/advise pt [facility] CenterHjzxzw93-63-5221 Miscellaneous Notes* Telephone Encounter - Arianna Carty [...] have placed the order. documented in this encounterSCorey HospitalRnbjar50-88-5629 Telephone encounter Note* Telephone Encounter - Gaurav [...] her that the order has been placed. [facility] CenterFcedzf50-96-5670 Miscellaneous Notes* Telephone Encounter - Gaurav Nunez [...] EST Please assist * Telephone Encounter - Setfan Villeda - 04/13/2022 11:21 AM EST Name of caller: franky Contact phone number: [phone] Relationship to Patient: patient Provider: supriya Practice: [facility] Chief Complaint/Reason for Call: pt called in to ask if it would be possible to have the iqivxyurja16cg called in as capsule form due to [...] return their call: No documented in this [facility]02-22-2023 Telephone encounter Note* Telephone Encounter - Sayda Talavera MA - 04/13/2022 12:44 PM EST Please assist [facility] Aoeuej37-05-3458 Telephone encounter Note* Telephone Encounter - Steafn Villeda - 04/13/2022 11:21 AM EST Name of caller: franky Contact phone number: [phone] Relationship to Patient: patient Provider: supriya Practice: [facility] Chief Complaint/Reason for Call: pt called in to ask if it would be possible to have the jmtxxcbmug20ue called in as capsule form due to [...] business hours to return their call: No [facility] Kogfld11-51-8462 Telephone encounter Note* Telephone Encounter - Arianna Carty - 04/01/2022 8:17 AM EST No auth needed. Faxed orders to [facility]-Scheduling for pt to be sched - [facility] will sched/advise pt [facility] CenterEhsuab81-84-9768 Miscellaneous Notes* Telephone Encounter - Arianna Carty - 04/01/2022 8:17 AM EST No auth needed. Faxed orders to [facility]-Scheduling for pt to be sched - [facility] will sched/advise pt * Telephone Encounter - Gaurav Nunez DO - 03/31/2022 9:52 PM EST This patient had a well woman examination done last May. Looks like she did not have a mammogram done. I have placed the order. documented in this [facility]02-09-2023 Telephone encounter Note* Telephone Encounter - Gaurav Nunez DO - 03/31/2022 9:52 PM EST This patient had a well woman examination done last May. Looks like she did not have a mammogram done. I have placed the order. [facility] CenterMiohrz65-67-4105 History of Present illness Narrative* Gaurav Nunez DO - 03/29/2022 2:50 PM EST Subjective: Patient ID: Franky Villanueva is a 66 y.o. female. 66 old female with a history of anxiety, depression, diabetes and hypertension presents to the office for checkup. Patient sees an fish frog or oyster farmer who is prescribing majority of her medication. [...] this problem. Patient continues to see an fish frog or oyster farmer on a regular basis. This patient had [...] lisinopril 40 MG tablet Sure Comfort Pen [place] 31G X 8 MM misc [DISCONTINUED] FLUoxetine [...] patient's diabetes is being managed by an fish frog or oyster farmer Patient will be due for a well woman examination this spring documented in this encounterSCorey HospitalQuvhob45-62-1527 Miscellaneous Notes* Telephone Encounter - Natacha Westfall Ma - 02/24/2022 11:46 AM EST [employer] message with alert if not read. CLOSED * Telephone Encounter - Michael Rodriguez MD - 02/24/2022 11:19 AM EST Call and tell that urine microalbumin/creatinine ratio was elevated, but stable. No new changes. Cholesterol levels were fine. Serum sodium level was low, however, needs to be repeated. Get done early AM (before 8 am), no need to fast. Orders in [employer]. Will call with results. documented in this encounterSalem Regional Medical Center01-03-2023 History of Present illness Narrative* Jesus Burgos [...] 22, 2022 10:58 AM documented in this encounterSalem Regional Medical Center12-02-2022 Instructions* Patient Instructions* Michael Rodriguez MD - 01/21/2022 10:40 AM EST A1C 9.6% Change insulin:carbohyrate ratio to 1:7 Get labs done at [facility] fasting. Will call with results. Schedule bone [...] your usual activities immediately. documented in this encounterSalem Regional Medical Center12-02-2022 History of Present illness Narrative* Michael Rodriguez [...] which included preparing to see the patient, erxb-gf-ibqv patient care, completing clinical documentation, performing a medically appropriate examination, counseling and educating the patient/family/caregiver and ordering medications, tests, or procedures. documented in this encounterSalem Regional Medical Center07-05-2022 Miscellaneous Notes* Telephone Encounter - Tyesha Harvey [...] advise. Tyesha Harvey LPN documented in this encounterSalem Regional Medical Center04-27-2022 Miscellaneous Notes* Telephone Encounter - Erin Greer APRN.CNP - 06/16/2021 3:01 PM EDT Message doesn't specify which local pharmacy. Was sent to [facility] in [place]. Thank you * Telephone Encounter - Lorene Blackwell RN - 06/16/2021 9:24 AM EDT Apparently the Rx sent on 05/25/2021 was cancelled out of the pharmacies system for some reason. Please re-send. * Telephone Encounter - Rebecca Alvarado - 06/14/2021 9:02 AM EDT Pharmacy verified in [facility] Patient has been identified by name and [...] Please advise. Rebecca Alvarado [facility] History of Present illness Narrative* Erin Greer APRN.FIRE BOSS - 05/25/2021 11:00 AM EDT Reason for [...] Level: 4 - Moderate Erin Greer, MSN, CARE PARTNER, FOOD AND BEVERAGE ATTENDANT-C, CDE Endocrinology [facility] Medical Office [facility]/[address] [place] [address] Fax: [facility] History of Past illness Narrative* Problem Noted Date Resolved Date Background diabetic retinopathy 07/28/2014 07/09/2018 Insulin long-term use 11/14/2011 06/13/2012 documented as of this encounter (statuses as of 05/25/2021) [facility] of [facility] illness Narrative* Problem Noted Date Resolved Date Background diabetic retinopathy 07/28/2014 07/09/2018 Insulin long-term use 11/14/2011 06/13/2012 documented as of this encounter (statuses as of 06/16/2021) [facility] of [facility] illness Narrative* Problem Noted Date Resolved Date Background diabetic retinopathy 07/28/2014 07/09/2018 Insulin long-term use 11/14/2011 06/13/2012 documented as of this encounter (statuses as of 08/24/2021) [place] [address]-08-2015 History of Past illness Narrative* Problem Noted Date Resolved Date Background diabetic retinopathy 07/28/2014 07/09/2018 Insulin long-term use 11/14/2011 06/13/2012 documented as of this encounter (statuses as of 01/23/2022) [address]08-2015 History of Past illness Narrative* Problem Noted Date Resolved Date Background diabetic retinopathy 07/28/2014 07/09/2018 Insulin long-term use 11/14/2011 06/13/2012 documented as of this encounter (statuses as of 02/25/2022) [address]08-2015 History of Past illness Narrative* Problem Noted Date Resolved Date Background diabetic retinopathy 07/28/2014 07/09/2018 Insulin long-term use 11/14/2011 06/13/2012 documented as of this encounter (statuses as of 06/21/2022) [address]08-2015 History of Past illness Narrative* Problem Noted Date Resolved Date Background diabetic retinopathy 07/28/2014 07/09/2018 Insulin long-term use 11/14/2011 06/13/2012 documented as of this encounter (statuses as of 06/23/2022) [address]08-2015 History of Past illness Narrative* Problem Noted Date Diagnosed Date Resolved Date Background diabetic retinopathy 07/28/2014 07/09/2018 Insulin long-term use 11/14/20112012 documented as of this encounter (statuses as of 11/08/2022) [address]08-2015 History of Past illness Narrative* Problem Noted Date Diagnosed Date Resolved Date Background diabetic retinopathy 07/28/2014 07/09/2018 Insulin long-term use 11/14/20112012 documented as of this encounter (statuses as of 12/25/2022) [facility] Diagnosis Anesthesia of skin Disturbance of [...] Unspecified essential hypertension [facility] Diagnosis Pure hypercholesterolemia [facility]* Diagnosis Depression, unspecified depression type [facility] Diagnosis Onset Date Resolution Status Chest pain acute Colonoscopy planned acute [facility] Work Phone: Evaluation note* Diagnosis 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)- Primary Pure hypercholesterolemia Osteopenia of multiple sites Primary hypertension Unspecified essential hypertension Microalbuminuria due to type 1 diabetes mellitus (HCC) Disorder of bone and cartilage Disorder of bone and cartilage, unspecified [facility]* Diagnosis Hyponatremia Hyposmolality and/or hyponatremia [facility]* Diagnosis Encounter for annual wellness visit [...] health [facility] Memory loss- Primary Anxiety Anxiety state, unspecified Vitamin D deficiency Caregiver stress Sleep disorder Unspecified sleep disturbance [facility] Diagnosis Vitamin D deficiency- Primary [facility] Diagnosis 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)- Primary 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) Type I (juvenile type) diabetes mellitus without mention of complication, not stated as uncontrolled Osteopenia of multiple sites Pure hypercholesterolemia Primary hypertension Unspecified essential hypertension [facility]* Diagnosis Anxiety- Primary Anxiety state, unspecified Vitamin D deficiency Caregiver stress [facility] Diagnosis Osteopenia of multiple sites Disorder of bone and cartilage Disorder of bone and cartilage, unspecified [facility]* Diagnosis Dependent edema- Primary Edema Primary hypertension Unspecified essential hypertension [facility] noteNo assessment information availableWKettering [facility] Work Phone: Evaluation note* Diagnosis Leg swelling Swelling of limb [facility] Diagnosis Gardnerella associated vaginal discharge- Primary [...] laterality, subsequent encounter documented in this encounter [facility] note* Diagnosis Leg swelling Swelling of limb [facility]* Diagnosis Dependent edema Edema Decreased breath sounds at right lung base documented in this encounter [facility] note* Diagnosis 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)- Primary Pure hypercholesterolemia Osteopenia of multiple sites Primary hypertension Unspecified essential hypertension Vitamin D deficiency Unspecified vitamin D deficiency Venous insufficiency (chronic) (peripheral) Unspecified venous (peripheral) insufficiency documented in this encounter [facility] note* Diagnosis 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) Type I (juvenile type) diabetes mellitus without mention of complication, not stated as uncontrolled documented in this encounter [facility] note* Diagnosis Dependent edema- Primary Edema Primary hypertension Unspecified essential hypertension 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) Uncontrolled type 1 diabetes mellitus with hyperglycemia (HCC) Dyspnea, unspecified Hypercholesterolemia Pure hypercholesterolemia History of right breast cancer documented in this encounter [facility] note* Diagnosis Routine general medical examination at health care facility- Primary Routine general medical examination at a health care facility Peripheral edema Edema Alcohol use Other problems related to lifestyle LLQ abdominal pain Abdominal pain, left lower quadrant Primary hypertension Unspecified essential hypertension documented in this encounter [facility] note* Diagnosis Peripheral edema Edema documented in this encounter [facility]* Diagnosis Alcohol use Other problems related to lifestyle LLQ abdominal pain Abdominal pain, left lower quadrant documented in this encounter [facility]* Diagnosis Peripheral edema Edema documented in this encounter [facility]* Diagnosis Lymphedema- Primary Other noninfectious lymphedema Primary hypertension Unspecified essential hypertension 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) Hypercholesterolemia Pure hypercholesterolemia Anxiety and depression Uncontrolled type 1 diabetes mellitus with hyperglycemia (HCC) documented in this encounter [facility] note* Diagnosis Leg weakness, bilateral- Primary Muscle weakness (generalized) documented in this encounter [facility] note* Diagnosis Gardnerella associated vaginal discharge- Primary Infection due to other specified bacteria in conditions classified elsewhere and of unspecified site documented in this encounter [facility] note* Diagnosis Pure hypercholesterolemia documented in this encounter [facility] note* Diagnosis Peripheral edema- Primary Edema documented in this encounter [facility] note* Diagnosis Peripheral edema Edema documented in this encounter [facility] note* Diagnosis Lymphedema Other noninfectious lymphedema documented in this encounter [facility] note* Diagnosis 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) Type I (juvenile type) diabetes mellitus without mention of complication, not stated as uncontrolled Primary hypertension Unspecified essential hypertension documented in this encounter [facility] note* Diagnosis 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) Type I (juvenile type) diabetes mellitus without mention of complication, not stated as uncontrolled documented in this encounter [facility] note* Diagnosis JENN (generalized anxiety disorder)- Primary Generalized anxiety disorder Obsessive-compulsive behavior Type 1 diabetes mellitus without complication ([facility]/HCC) (HCC) Type I (juvenile type) diabetes mellitus without mention of complication, not stated as uncontrolled documented in this encounter [facility] note* Diagnosis Screening mammogram for high-risk patient- Primary Other screening mammogram documented in this encounter [facility] note* Diagnosis Screening mammogram for high-risk patient- Primary Other screening mammogram documented in this encounter [facility] note* Diagnosis Type 2 diabetes mellitus without complication, without long-term current use of insulin ([facility]) ([facility]) documented in this encounter [facility] note* Diagnosis Anxiety- Primary Anxiety state, unspecified [...] screening by mammogram documented in this encounter [facility] note* Diagnosis Anxiety- Primary Anxiety state, unspecified Vitamin D deficiency Caregiver stress Dependent edema- Primary Edema Primary hypertension Unspecified essential hypertension Routine general medical examination at [facility] care facility- Primary Routine general medical examination at a [facility] care facility Peripheral edema Edema Alcohol use Other problems related to lifestyle LLQ abdominal pain Abdominal pain, left lower quadrant Primary hypertension Unspecified essential hypertension Other screening mammogram [facility] Diagnosis Anxiety- Primary Anxiety state, unspecified Vitamin D deficiency Caregiver stress Dependent edema- Primary Edema Primary hypertension Unspecified essential hypertension Routine general medical examination at [facility] care facility- Primary Routine general medical examination at a [facility] facility Peripheral edema Edema Alcohol use Other problems related to lifestyle LLQ abdominal pain Abdominal pain, left lower quadrant Primary hypertension Unspecified essential hypertension Primary hypertension Unspecified essential hypertension [facility]* Diagnosis Anxiety- Primary Anxiety state, unspecified Vitamin D deficiency Caregiver stress Dependent edema- Primary Edema Primary hypertension Unspecified essential hypertension Routine general medical examination at [facility]- Primary Routine general medical examination at a [facility] Peripheral edema Edema Alcohol use Other problems related to lifestyle LLQ abdominal pain Abdominal pain, left lower quadrant Primary hypertension Unspecified essential hypertension Other screening mammogram [facility]* Diagnosis Anxiety- Primary Anxiety state, unspecified Vitamin D deficiency Caregiver stress Dependent edema- Primary Edema Primary hypertension Unspecified essential hypertension Routine general medical examination at [facility]- Primary Routine general medical examination at a [facility] facility Peripheral edema Edema Alcohol use Other problems related to lifestyle LLQ abdominal pain Abdominal pain, left lower quadrant Primary hypertension Unspecified essential hypertension Primary hypertension Unspecified essential hypertension [facility]* Diagnosis Anxiety- Primary Anxiety state, unspecified Vitamin D deficiency Caregiver stress Dependent edema- Primary Edema Primary hypertension Unspecified essential hypertension Routine general medical examination at [facility] care facility- Primary Routine general medical examination at a [facility] facility Peripheral edema Edema Alcohol use [...] essential hypertension Routine general medical examination at [facility] care facility- Primary Routine general medical examination at a [facility] care facility Peripheral edema Edema Alcohol use [...] not elsewhere classified documented in this encounter [facility]* Diagnosis Anxiety- Primary Anxiety state, unspecified Vitamin D deficiency Caregiver stress Dependent edema- Primary Edema Primary hypertension Unspecified essential hypertension Routine general medical examination at health care facility- Primary Routine general medical examination at a [facility] facility Peripheral edema Edema Alcohol use Other problems related to lifestyle LLQ abdominal pain Abdominal pain, left lower quadrant Primary hypertension Unspecified essential hypertension Hyponatremia- Primary Hyposmolality and/or hyponatremia [facility] Diagnosis 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) Type I (juvenile type) diabetes mellitus without mention of complication, not stated as uncontrolled [facility]* Diagnosis Anxiety- Primary Anxiety state, unspecified Vitamin D deficiency Caregiver stress Dependent edema- Primary Edema Primary hypertension Unspecified essential hypertension Routine general medical examination at health care facility- Primary Routine general medical examination at a [facility] facility Peripheral edema Edema Alcohol use [...] not elsewhere classified [facility] Diagnosis Anxiety- Primary Anxiety state, unspecified Vitamin D deficiency Caregiver stress Dependent edema- Primary Edema Primary hypertension Unspecified essential hypertension Routine general medical examination at health care facility- Primary Routine general medical examination at a [facility] facility Peripheral edema Edema Alcohol use Other problems related to lifestyle LLQ abdominal pain Abdominal pain, left lower quadrant Primary hypertension Unspecified essential hypertension Ataxia- Primary Lack of coordination Leg weakness, bilateral Muscle weakness (generalized) Physical deconditioning Muscular wasting and disuse atrophy, not elsewhere classified Diabetic 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) [facility] Diagnosis Anxiety- Primary Anxiety state, unspecified Vitamin D deficiency Caregiver stress Dependent edema- Primary Edema Primary hypertension Unspecified essential hypertension Routine general medical examination at health care facility- Primary Routine general medical examination at a [facility] care facility Peripheral edema Edema Alcohol use Other problems related to lifestyle LLQ abdominal pain Abdominal pain, left lower quadrant Primary hypertension Unspecified essential hypertension Uncontrolled type 1 diabetes mellitus with hyperglycemia (HCC)- Primary documented in this encounter [facility]* Diagnosis 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) Type I (juvenile type) diabetes mellitus without mention of complication, not stated as uncontrolled [facility]* Diagnosis Anxiety- Primary Anxiety state, unspecified Vitamin D deficiency Caregiver stress Dependent edema- Primary Edema Primary hypertension Unspecified essential hypertension Routine general medical examination at health care facility- Primary Routine general medical examination at a [facility] facility Peripheral edema Edema Alcohol use Other problems related to lifestyle LLQ abdominal pain Abdominal pain, left lower quadrant Primary hypertension Unspecified essential hypertension PMB (postmenopausal bleeding)- Primary Postmenopausal bleeding Vaginal discharge Leukorrhea, not specified as infective documented in this encounter [facility] note* Diagnosis Anxiety- Primary Anxiety state, unspecified Vitamin D deficiency Caregiver stress Dependent edema- Primary Edema Primary hypertension Unspecified essential hypertension Routine general medical examination at health care facility- Primary Routine general medical examination at a [facility] facility Peripheral edema Edema Alcohol use Other problems related to lifestyle LLQ abdominal pain Abdominal pain, left lower quadrant Primary hypertension Unspecified essential hypertension Encounter for gynecological examination with abnormal finding- Primary PMB (postmenopausal bleeding) Postmenopausal bleeding Vaginal discharge Leukorrhea, not specified as infective documented in this encounter [facility]* Diagnosis 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)- Primary Premature menopause Osteopenia of multiple sites Microalbuminuria due to type 1 diabetes mellitus (HCC) Primary hypertension Unspecified essential hypertension Pure hypercholesterolemia [facility]* Diagnosis Anxiety- Primary Anxiety state, unspecified Vitamin D deficiency Caregiver stress Dependent edema- Primary Edema Primary hypertension Unspecified essential hypertension Routine general medical examination at health care facility- Primary Routine general medical examination at a [facility] facility Peripheral edema Edema Alcohol use Other problems related to lifestyle LLQ abdominal pain Abdominal pain, left lower quadrant Primary hypertension Unspecified essential hypertension PMB (postmenopausal bleeding)- Primary Postmenopausal bleeding documented in this encounter [facility] note* Diagnosis Anxiety- Primary Anxiety state, unspecified [...] as infective [facility] Consultation (Routine) - Pending Review Specialty Diagnoses / Procedures Referred By Contac t Referred To Contact Obstetrics and Gynecology Diagnoses Gardnerella associated vaginal discharge Procedures HI OFFICE/OUTPATIENT NEW HIGH MDM 60 MINUTES Norberto Gómez, DO [address] [place] [address] [facility] Br Inventory Specialist Manager [address] [place] [address] Referral ID Status Reason Start Date Expiration Date Visits Requested Visits Authorized [id number] Pending Review Specialty Services Required 10/10/2023 10/09/2024 1 1 [facility] Consultation (Routine) - Pending Review Specialty Diagnoses / Procedures Referred By Sonalac t Referred To Contact Vascular Surgery Diagnoses Lymphedema Procedures HI OFFICE/OUTPATIENT [facility] 60 MINUTES Norberto Gómez, DO [address] [place] [address] [address] Referral ID Status Reason Start Date Expiration Date Visits Requested Visits Authorized [id number] Pending Review Specialty Services Required 11/16/2023 11/15/2024 1 1 [facility] for referral (narrative)No reason for referral information availableTillman Medical Services Work Phone: Summary Purpose Family History No Family History Records FoundNo Family History Records FoundNo Family History Records FoundNo Family History Records FoundNo Family History Records FoundNo Family History Records Found Advance Directives No Advanced Directives Records FoundDocuments on File Type Date Recorded Patient Director Hedis Expl anation ACP-Advance Directive ACP-Power of Oracle Database Analyst Documents on File Type Date Recorded Patient Director Hedis Expl anation Advance Directive(s) 04/18/2016 8:53 AM Advance Directive(s) 2016 2:28 PM Advance Directive Response Recorded Date/ Time Name of Medical Power of Oracle Database Analyst SPOUSE October 14, 2021 11:27am Living Will Yes October 14 11:27am Power of Oracle Database Analyst Yes October 14, 022 11:27am Advance Directive Response Recorded Date/ Time Living Will No May 27, 2023 1:04pm Power of Oracle Database Analyst No May 26 1:04pm Chief Complaint and [...] NEW HIGH MDM 60-74 MINUTES Erin Greer APRN.FIRE BOSS [address] [address] Referral ID Status Reason Start Date Expiration Date Visits Requested Visits Authorized [id number] Authorized PCP Requested Referral 11/08/2022 11/08/2023 1 1 Specialty Diagnoses / Procedures Referred By Angelina treadwell Referred To Contact Diagnoses 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) 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) Erin Greer APRN.FIRE BOSS [address] [address] Referral ID Status Reason Start Date Expiration Date Visits Re quested Visits Authorized [id number] Closed 1 1 Specialty Diagnoses / Procedures Referred By Angelina treadwell Referred To Contact Cardiology Diagnoses Leg swelling Procedures Vascular US lower extremity venous duplex bilateral Norberto Gómez F, DO [address] [place] [address] Referral ID Status Reason Start Date Expiration Date V isits Requested Visits Authorized [id number] Pending Review 05/30/2023 05/29/2024 1 1 Referral ID Status Reason Start Date Expiration Date Visits Re quested Visits Authorized [id number] Closed 05/30/2023 05/29/2024 1 1 Specialty Diagnoses / Procedures Referred By Angelina treadwell Referred To Contact Cardiology Diagnoses Peripheral edema Procedures Transthoracic echocardiogram (TTE) complete with contrast, bubble, strain, and 3D PRN HI ECHO TTHRC R-T 2D W/WOM-MODE COMPL SPEC&COLR D HI TTE W OR WO FOL WCON,DOPPLER Allen Rapp PA-C [address] [place] [address] Referral ID Status Reason Start Date Expiration Date V isits Requested Visits Authorized [id number] Pending Review 07/20/2023 07/19/2024 1 1 Referral ID Status Reason Start Date Expiration Date Visits Re quested Visits Authorized [id number] Closed 07/20/2023 07/19/2024 1 1 Specialty Diagnoses / Procedures Referred By Contac t Referred To Contact Physical Therapy Diagnoses Leg weakness, bilateral Procedures HI OFFICE/OUTPATIENT NEW HIGH MDM 60 MINUTES Norberto Gómez F, DO [address] [place] [address] Referral ID Status Reason Start Date Expiration Date Visits Requested Visits Authorized [id number] Pending Review Eval and Treat 09/29/2023 03/27/2024 99 99 Specialty Diagnoses / Procedures Referred By Contac t Referred To Contact Occupational Therapy Diagnoses Peripheral edema Procedures HI OFFICE/OUTPATIENT NEW HIGH [facility] 60 MINUTES Norberto Gómez, DO [address] [place] [address] [address] Referral ID Status Reason Start Date Expiration Date Visits Requested Visits Authorized [id number] Pending Review Eval and Treat 11/07/2023 11/06/2024 99 99 Referral ID Status Reason Start Date Expiration Date Visits Requested Visits Authorized [id number] Pending Review Eval and Treat 11/13/2023 11/12/2024 99 99 Scheduling Instructions LYMPHEDEMA SPECIALIST Additional Source Comments INFORMATION SOURCE (unrecogn ized section and content) DATE CREATED AUTHOR 09/18/2018 [facility] DATE CREATED AUTHOR AUTHOR'S ORGANIZ ATION 09/23/2019 [facility] DATE CREATED AUTHOR AUTHOR'S ORGANIZ ATION 06/23/2022 [facility] DATE CREATED AUTHOR AUTHOR'S ORGANIZ ATION 06/27/2024 [facility] DATE CREATED AUTHOR AUTHOR'S ORGANIZ ATION 08/17/2024 [facility] DATE CREATED AUTHOR AUTHOR'S ORGANIZ ATION 09/28/2024 [facility] Reason for Visit (unrecogniz ed section and content) Status Reason Specialty Diagnoses / Procedures Referred By Contact Referred To Contact Pending Review Neurology Diagnoses Numbness in both legs Procedures Nerve Conduction Test with EMG Allen Hardin MD [address] [place] [address] Reason Comments Insulin Dependent Diabetes Mellitus Reason [...] on her mental status. Procedures geriatric assessment [facility] [address] [facility] [address] [address] [address] Referral ID Status Reason Start Date Expiration Date Visits Re quested Visits Authorized [id number] Closed 09/20/2022 03/19/2023 1 1 Reason Comments [...] F, DO [address] [place] [address] Referral ID Status Reason Start Date Expiration Date Visits Re quested Visits Authorized [id number] Closed 05/30/2023 05/29/2024 1 1 Reason Comments Follow Up Established Patient Reason Onset Date Comments Refill Request 06/21/2023 Reason Comments discuss swelling In both legs Reason Comments Medicare Annual Wellness Visit Subsequen t Reason Onset Date Comments Forms/questionnaires 07/21/2023 Reason Onset Date Comments Medication Problem 08/15/2023 Reason Onset Date Comments Advice Only 08/30/2023 Vaginal Discharge 08/30/2023 Specialty Diagnoses / Procedures Referred By Angelina rteadwell Referred To Contact Cardiology Diagnoses Peripheral edema Procedures Transthoracic echocardiogram (TTE) complete with contrast, bubble, strain, and 3D PRN HI ECHO TTHRC R-T 2D W/WOM-MODE COMPL SPEC&COLR D HI TTE W OR WO FOL WCON,DOPPLER Allen Rapp PA-C [address] [facility] [address] [place] [address] Referral ID Status Reason Start Date Expiration Date Visits Re quested Visits Authorized [id number] Closed 07/20/2023 07/19/2024 1 1 Reason Comments Follow-up Med check Reason Onset Date Comments Orders 09/29/2023 Physical therapy Reason Onset Date Comments Orders 10/10/2023 SEWAGE SCREEN OPERATOR referral Reason Onset Date Comments Error (VOID this visit) 10/12/2023 Reason Onset Date Comments Vaginal Discharge 10/10/2023 Reason Onset Date Comments Other 11/05/2023 Follow-up to [facility] referral Reason Comments Med Refill Reason [...] Date Comments Other 05/08/2024 [facility] Reason Onset Date Comments Error (VOID [...] or prosecute any alcohol or drug abuse patient.[facility] the event this information is protected by the Federal Confidentiality of Alcohol and Drug Abuse Patient Records regulations: The Federal rules restrict any use of the information to criminally investigate or prosecute any alcohol or drug abuse patient.[facility] Center[facility] the event this information is protected by the Federal Confidentiality of Alcohol and Drug Abuse Patient Records regulations: The Federal rules restrict any use of the information to criminally investigate or prosecute any alcohol or drug abuse patient.[facility] Center[facility] the event this information is protected by the Federal Confidentiality of Alcohol and Drug Abuse Patient Records regulations: The Federal rules restrict any use of the information to criminally investigate or prosecute any alcohol or drug abuse patient.[facility] Center[facility] the event this information is protected by the Federal Confidentiality of Alcohol and Drug Abuse Patient Records regulations: The Federal rules restrict any use of the information to criminally investigate or prosecute any alcohol or drug abuse patient.[facility] Center[facility] the event this information is protected by the Federal Confidentiality of Alcohol and Drug Abuse Patient Records regulations: The Federal rules restrict any use of the information to criminally investigate or prosecute any alcohol or drug abuse patient.[facility] Center[facility] the event this information is protected by the Federal Confidentiality of Alcohol and Drug Abuse Patient Records regulations: The Federal rules restrict any use of the information to criminally investigate or prosecute any alcohol or drug abuse patient.[facility] Center[facility] the event this information is protected by the Federal Confidentiality of Alcohol and Drug Abuse Patient Records regulations: The Federal rules restrict any use of the information to criminally investigate or prosecute any alcohol or drug abuse patient.[facility] Center[facility] the event this information is protected by the Federal Confidentiality of Alcohol and Drug Abuse Patient Records regulations: The Federal rules restrict any use of the information to criminally investigate or prosecute any alcohol or drug abuse patient.[facility] CenterIn the event this information is protected by the Federal Confidentiality of Alcohol and Drug Abuse Patient Records regulations: The Federal rules restrict any use of the information to criminally investigate or prosecute any alcohol or drug abuse patient.[facility] Center[facility] the event this information is protected by the Federal Confidentiality of Alcohol and Drug Abuse Patient Records regulations: The Federal rules restrict any use of the information to criminally investigate or prosecute any alcohol or drug abuse patient.[facility] Center[facility] the event this information is protected by the Federal Confidentiality of Alcohol and Drug Abuse Patient Records regulations: The Federal rules restrict any use of the information to criminally investigate or prosecute any alcohol or drug abuse patient.[facility] Center[facility] the event this information is protected by the Federal Confidentiality of Alcohol and Drug Abuse Patient Records regulations: The Federal rules restrict any use of the information to criminally investigate or prosecute any alcohol or drug abuse patient.[facility] CenterIn the event this information is protected by the Federal Confidentiality of Alcohol and Drug Abuse Patient Records regulations: The Federal rules restrict any use of the information to criminally investigate or prosecute any alcohol or drug abuse patient.[facility] CenterIn the event this information is protected by the Federal Confidentiality of Alcohol and Drug Abuse Patient Records regulations: The Federal rules restrict any use of the information to criminally investigate or prosecute any alcohol or drug abuse patient.[facility] CenterIn the event this information is protected by the Federal Confidentiality of Alcohol and Drug Abuse Patient Records regulations: The Federal rules restrict any use of the information to criminally investigate or prosecute any alcohol or drug abuse patient.[facility] CenterIn the event this information is protected by the Federal Confidentiality of Alcohol and Drug Abuse Patient Records regulations: The Federal rules restrict any use of the information to criminally investigate or prosecute any alcohol or drug abuse patient.[facility] CenterIn the event this information is protected by the Federal Confidentiality of Alcohol and Drug Abuse Patient Records regulations: The Federal rules restrict any use of the information to criminally investigate or prosecute any alcohol or drug abuse patient.[facility] CenterIn the event this information is protected by the Federal Confidentiality of Alcohol and Drug Abuse Patient Records regulations: The Federal rules restrict any use of the information to criminally investigate or prosecute any alcohol or drug abuse patient.[facility] Care Teams (unrecognized sec tion and content) Manager Poker Relationship Specialty Start Date End Date Gaurav Nunez DO [address] [place] [address] PCP - General Family Practice 11/09/15 Manager Poker Relationship Specialty Start Date End Date Gaurav Nunez DO [address] [place] [address] PCP - General Family Practice 11/09/15 Manager Poker Relationship Specialty Start Date End Date Gaurav Nunez DO [address] [place] [address] PCP - General Family Practice 11/09/15 Manager Poker Relationship Specialty Start Date End Date Gaurav Nunez DO [address] [facility] [place] [place] [place] [address] PCP - General Family Medicine 11/09/15 Manager Poker Relationship Specialty Start Date End Date Gaurav Nunez DO [address] [place] [address] PCP - General Family Medicine 11/09/15 Manager Poker Relationship Specialty Start Date End Date Gaurav Nunez, DO [address] [place], [place] [phone] PCP - General Family Medicine 11/09/15 Manager Poker Relationship Specialty Start Date End Date Norberto Gómez, DO [address] [place] [address] PCP - General Family Medicine 07/04/22 Manager Poker Relationship Specialty Start Date End Date Norberto Gómez, DO [address] [place] [address] PCP - General Family Medicine 07/04/22 Manager Poker Relationship Specialty Start Date End Date Norberto Gómez, DO [address] [place] [address] PCP - General Family Medicine 07/04/22 Manager Poker Relationship Specialty Start Date End Date Norberto Gómez, DO [address] [place] [address] PCP - General Family Medicine 07/04/22 Manager Poker Relationship Specialty Start Date End Date Norberto Gómez, DO [address] [place] [address] PCP - General Family Medicine 07/04/22 Manager Poker Relationship Specialty Start Date End Date Gaurav Nunez, DO [address] [place], [place] [id number] PCP - General Family Medicine 11/09/15 Manager Poker Relationship Specialty Start Date End Date Norberto Gómez, DO [address] [place], [place] [phone] PCP - General Family Medicine 07/04/22 Manager Poker Relationship Specialty Start Date End Date Gaurav Nunez DO [address] [place] [address] PCP - General Family Medicine 11/09/15 Manager Poker Relationship Specialty Start Date End Date Norberto Gómez DO [address] [place] [address] PCP - General Family Medicine 07/04/22 Manager Poker Relationship Specialty Start Date End Date Norberto Gómez DO [address] [place] [address] PCP - General Family Medicine 07/04/22 Manager Poker Relationship Specialty Start Date End Date Norberto Gómez DO [address] [place] [address] PCP - General Family Medicine 07/04/22 Team Status: Active Member Role Status Dates Dr. Gaurav Nunez , Family Provider Active Dr. Norberto Gómez DO Primary Care Provider Active Team Status: Inactive Member Role Status Dates Dr. Rajwinder Naik , Emergency Provider Active Dr. Norberto Gómez DO Primary Care Provider Active Manager Poker Relationship Specialty Start Date End Date Norberto Gómez, [address] [place] [address] PCP - General Family Medicine 07/04/22 Manager Poker Relationship Specialty Start Date End Date Norberto Gómez DO [address] [place] [address] PCP - General Family Medicine 07/04/22 Manager Poker Relationship Specialty Start Date End Date Norberto Gómez DO [address] [place] [address] PCP - General Family Medicine 07/04/22 Manager Poker Relationship Specialty Start Date End Date Norberto Gómez DO [address] [place] [address] PCP - General Family Medicine 07/04/22 Manager Poker Relationship Specialty Start Date End Date DariaNorberto iqbal DO [address] [place] [address] PCP - General Family Medicine 07/04/22 Manager Poker Relationship Specialty Start Date End Date Norberto Gómez [address] [place] [address] PCP - General Family Medicine 07/04/22 Manager Poker Relationship Specialty Start Date End Date Norberot Gómez DO [address] [place] [address] PCP - General Family Medicine 06/16/23 Manager Poker Relationship Specialty Start Date End Date Norberto Gómez [address] [place], [place] [phone] PCP - General Family Medicine 06/16/23 Manager Poker Relationship Specialty Start Date End Date DariaNorberto iqbal [address] [place] [address] PCP - General Family Medicine 07/04/22 Allen Rapp PA-C [address] [place] [address] Physician Distillery Miller Helper Physician Distillery Miller Helper 07/20/23 Manager Poker Relationship Specialty Start Date End Date Norberto Gómez, DO [address] [place] [address] PCP - General Family Medicine 07/04/22 Allen Rapp PA-C [address] [place] [address] Physician Distillery Miller Helper Physician Distillery Miller Helper 07/20/23 Manager Poker Relationship Specialty Start Date End Date Norberto Gómez, DO [address] [place] [address] PCP - General Family Medicine 07/04/22 Allen Rapp PA-C [address] [place] [address] Physician Distillery Miller Helper Physician Distillery Miller Helper 07/20/23 Manager Poker Relationship Specialty Start Date End Date Norberto Gómez, DO [address] [place] [address] PCP - General Family Medicine 07/04/22 Allen Rapp PA-C [address] [place] [address] Physician Distillery Miller Helper Physician Distillery Miller Helper 07/20/23 Manager Poker Relationship Specialty Start Date End Date Norberto Gómez, DO [address] [place] [address] PCP - General Family Medicine 07/04/22 Allen Rapp PA-C [address] [place] [address] Physician Distillery Miller Helper Physician Distillery Miller Helper 07/20/23 Manager Poker Relationship Specialty Start Date End Date Norberto Gómez DO [address] [place] [address] PCP - General Family Medicine 07/04/22 Allen Rapp PA-C [address] [place] [address] Physician Distillery Miller Helper Physician Distillery Miller Helper 07/20/23 Manager Poker Relationship Specialty Start Date End Date Norberto Gómez DO [address] [place] [address] PCP - General Family Medicine 07/04/22 Allen Rapp PA-C [address] [place] [address] Physician Distillery Miller Helper Physician Distillery Miller Helper 07/20/23 Manager Poker Relationship Specialty Start Date End Date Norberto Gómez DO [address] [place] [address] PCP - General Family Medicine 07/04/22 Allen Rapp PA-C [address] [place] [address] Physician Distillery Miller Helper Physician Distillery Miller Helper 07/20/23 Manager Poker Relationship Specialty Start Date End Date Norberto Gómez DO [address] [place] [address] PCP - General Family Medicine 07/04/22 Allen Rapp PA-C [address] [place] [address] Physician Distillery Miller Helper Physician Distillery Miller Helper 07/20/23 Manager Poker Relationship Specialty Start Date End Date Norberto Gómez DO [address] [place] [address] PCP - General Family Medicine 07/04/22 Allen Rapp PA-C [address] [place] [address] Physician Distillery Miller Helper Physician Distillery Miller Helper 07/20/23 Manager Poker Relationship Specialty Start Date End Date Norberto Gómez DO [address] [place] [id number] PCP - General Family Medicine 06/16/23 Manager Poker Relationship Specialty Start Date End Date Norberto Gómez DO [address] [place] [address] PCP - General Family Medicine 07/04/22 Allen Rapp PA-C [address] [place] [address] Physician Distillery Miller Helper Physician Distillery Miller Helper 07/20/23 Manager Poker Relationship Specialty Start Date End Date Norberto Gómez DO [address] [place] [address] PCP - General Family Medicine 07/04/22 Allen Rapp PA-C [address] [place] [address] Physician Distillery Miller Helper Physician Distillery Miller Helper 07/20/23 Manager Poker Relationship Specialty Start Date End Date DariaNorberto iqbal DO [address] [place] [address] PCP - General Family Medicine 07/04/22 Allen Rapp PA-C [address] [place] [address] Physician Distillery Miller Helper Physician Distillery Miller Helper 07/20/23 Manager Poker Relationship Specialty Start Date End Date Norberto Gómez, [address] [place] [address] PCP - General Family Medicine 06/16/23 Manager Poker Relationship Specialty Start Date End Date Norberto Gómez, DO [address] [place], [place] [id number] PCP - General Family Medicine 06/16/23 Manager Poker Relationship Specialty Start Date End Date Gaurav Nunez, DO [address] [place] [address] PCP - General 01/27/15 Manager Poker Relationship Specialty Start Date End Date Gaurav Nunez DO [address] [place] [address] PCP - General 01/27/15 Manager Poker Relationship Specialty Start Date End Date Gaurav Nunez, [address] [place], [place] [phone] PCP - General 01/27/15 Manager Poker Relationship Specialty Start Date End Date Gaurav Nunez, DO [address] [place] [address] PCP - General 01/27/15 Manager Poker Relationship Specialty Start Date End Date Norberto Gómez DO [address] [place] [address] PCP - General Family Medicine 07/04/22 Allen Rapp PA-C [address] [place] [address] Physician Distillery Miller Helper Physician Distillery Miller Helper 07/20/23 Manager Poker Relationship Specialty Start Date End Date Norberto Gómez DO [address] [place] [address] PCP - General Family Medicine 07/04/22 Allen Rapp PA-C [address] [place] [address] Physician Distillery Miller Helper Physician Distillery Miller Helper 07/20/23 Manager Poker Relationship Specialty Start Date End Date Norberto Gómez, DO [address] [place] [address] PCP - General Family Medicine 07/04/22 Allen Rapp PA-C [address] [place] [address] Physician Distillery Miller Helper Physician Distillery Miller Helper 07/20/23 Manager Poker Relationship Specialty Start Date End Date Norberto Gómez, [address] [place] [address] PCP - General Family Medicine 07/04/22 Allen Rapp PA-C [address] [place] [address] Physician Distillery Miller Helper Physician Distillery Miller Helper 07/20/23 Manager Poker Relationship Specialty Start Date End Date Norberto Gómez DO [address] [place] [address] PCP - General Family Medicine 07/04/22 Allen Rapp PA-C [address] [place] [address] Physician Distillery Miller Helper Physician Distillery Miller Helper 07/20/23 Manager Poker Relationship Specialty Start Date End Date Norberto Gómez DO [address] [place] [address] PCP - General Family Medicine 07/04/22 Allen Rapp PA-C [address] [place] [address] Physician Distillery Miller Helper Physician Distillery Miller Helper 07/20/23 Manager Poker Relationship Specialty Start Date End Date Norberto Gómez DO [address] [place] [address] PCP - General Family Medicine 07/04/22 Allen Rapp PA-C [address] [place] [address] Physician Distillery Miller Helper Physician Distillery Miller Helper 07/20/23 Manager Poker Relationship Specialty Start Date End Date Norberto Gómez DO [address] [place] [id number] PCP - General Family Medicine 06/16/23 Manager Poker Relationship Specialty Start Date End Date Norberto Gómez DO [address] [place] [address] PCP - General Family Medicine 07/04/22 Allen Rapp PA-C [address] [place] [address] Physician Distillery Miller Helper Physician Distillery Miller Helper 07/20/23 Manager Poker Relationship Specialty Start Date End Date Norberto Gómez DO [address] [place] [address] PCP - General Family Medicine 07/04/22 Allen Rapp PA-C [address] [place] [address] Physician Distillery Miller Helper Physician Distillery Miller Helper 07/20/23 Manager Poker Relationship Specialty Start Date End Date Norberto Gómez DO [address] [place] [id number] PCP - General Family Medicine 06/16/23 Manager Poker Relationship Specialty Start Date End Date Norberto Gómez DO [address] [place] [address] PCP - General Family Medicine 07/04/22 Allen Rapp PA-C [address] [place] [address] Physician Distillery Miller Helper Physician Distillery Miller Helper 07/20/23 Manager Poker Relationship Specialty Start Date End Date Norberto Gómez DO [address] [place] [address] PCP - General Family Medicine 07/04/22 Allen Rapp PA-C [address] [place] [address] Physician Distillery Miller Helper Physician Distillery Miller Helper 07/20/23 Manager Poker Relationship Specialty Start Date End Date Norberto Gómez DO [address] [place] [address] PCP - General Family Medicine 07/04/22 Allen Rapp PA-C [address] [place] [address] Physician Distillery Miller Helper Physician Distillery Miller Helper 07/20/23 Manager Poker Relationship Specialty Start Date End Date DariaNorberto iqbal DO [address] [place] [address] PCP - General Family Medicine 07/04/22 Allen Rapp PA-C [address] [place] [address] Physician Distillery Miller Helper Physician Distillery Miller Helper 07/20/23 Manager Poker Relationship Specialty Start Date End Date DaliaNorberto [address] [place], [place] [phone] PCP - General Family Medicine 06/16/23 Manager Poker Relationship Specialty Start Date End Date Dalia Norberto Botello [address] [place], [place] [phone] PCP - General Family Medicine 06/16/23 Team [...] BE BASED ON THE PRIMARY CLINICAL RECORDS. [employer] [facility]. provides no warranty or guarantee of the accuracy or completeness of information in this document.
[2024-09-28 13:13] VITALS: BMI 21.6
[2024-09-28 13:45] VITALS: BP 140/53; PULSE 80; RESP 18; TEMP 36.5; O2SAT 100
[2024-09-28] MEDS: Insulin Glargine-YFGN 100 UNIT/ML Pen 13 UNIT SC (19:33)
[2024-09-28 21:51] VITALS: BP 121/46; PULSE 65; RESP 18; TEMP 36.7; O2SAT 100
[2024-09-29 05:10] VITALS: BP 127/49; PULSE 63; RESP 18; TEMP 36.4; O2SAT 100
[2024-09-29 06:30] LABS: Hematocrit 32.8 % (37-47); Hemoglobin 11.1 g/dL (12.0-15.0); Immature Granulocytes Count 0.020 X10^3/uL (0.0-0.0); Mean Corp Hgb Conc 33.8 g/dL (32-36); Mean Corpuscular Volume 90.6 fL (81-99); Mean Platelet Vol. 9.7 fl (6.2-12.0); NRBC Flagged by Analyzer 0 % (0-5); Platelet Count 355 K/mm3 (150-450); RBC Distribution Width CV 12.2 % (11.6-14.6); RBC Distribution Width SD 40.3 fl (35.1-43.9); Red Blood Count 3.62 M/mm3 (4.2-5.4); White Blood Count 5.0 K/mm3 (4.4-11.0)
[2024-09-29 06:58] LABS: Anion Gap 11 (5-15); BUN 26 mg/dL (4-19); BUN/Creat Ratio 37.9 RATIO (10-20); Calcium,Total 9.3 mg/dL (7.6-11.0); Carbon Dioxide 25.6 mmol/L (21.0-32.0); Chloride 99 mmol/L (98-108); Estimated Creatinine Clearance 56.50 ml/min (50-250); Glucose 91 mg/dL (70-99); Magnesium 2.3 mg/dL (1.5-2.2); Potassium 3.7 mmol/L (3.3-5.1)
--- NOTE | 2024-09-29 07:52 | PCM.PN.HOSP ---
Reason for Visit Chief Complaint: Altered mental status Subjective Subjective Patient is a 69-year-old lady who was admitted with breathlessness the day prior. Diagnosis of acute cystitis was made admitted to a monitored bed. Patient seen this a.m. much, and cooperative. Patient is on ceftriaxone urine cultures pending Objective Data Objective Data Vital Signs: Vital Signs Temp Pulse Resp BP Pulse Ox O2 Del Method 97.6 F L 63 18 127/49 H 100 Room Air 09/29/24 05:10 09/29/24 05:10 09/29/24 05:10 09/29/24 05:10 09/29/24 05:10 09/29/24 05:10 Oxygen Delivery Method Room Air Weight: 58.8 kg Body Mass Index (BMI) 21.6 Intake & Output: Intake and Output for Last 24 Hours 09/27/24 09/28/24 09/29/24 23:59 23:59 23:59 Intake Total 450 / 450 800 / 800 Balance 450 / 450 800 / 800 Lab / Micro Data 09/29/24 05:46 09/29/24 05:46 Labs: Laboratory Results - last 24 hr 09/28/24 09:26: WBC 6.7, RBC 3.84 L, Hgb 11.9 L, Hct 33.7 L, MCV 87.8, MCH 31.0, MCHC 35.3, RDW Std Deviation 37.6, RDW Coeff of Imelda 11.7, Plt Count 404, MPV 9.4, Immature Gran % (Auto) 0.400, Neut % (Auto) 67.4, Lymph % (Auto) 20.4, [place] % (Auto) 10.3 H, Eos % (Auto) 0.9, Baso % (Auto) 0.6, Absolute Neuts (auto) 4.5, Absolute Lymphs (auto) 1.36, Nucleated RBC % 0, Sodium 135, Potassium 3.3, Chloride 97 L, Carbon Dioxide 23.2, Anion Gap 15, BUN 24 H, Creatinine 0.73, Estim Creat Clear Calc 56.50, Est GFR (MDRD) Non-Af 88, BUN/Creatinine Ratio 32.0 H, Glucose 119 H, Calcium 10.1, Total Bilirubin 0.50, AST 23, ALT 15, Alkaline Phosphatase 90, Total Protein 7.2, Albumin 4.2, Globulin 3.0, Albumin/Globulin Ratio 1.4, Ethyl Alcohol < 10.1 09/28/24 09:55: Urine Color Yellow, Urine Clarity Clear, Urine pH 8.0, Ur Specific [place] 1.010, Urine Protein 30 H, Urine Glucose (UA) Normal, Urine Ketones 5 H, Urine Occult Blood Negative, Urine Nitrite Negative, Urine Bilirubin Negative, Urine Urobilinogen Normal, Ur Leukocyte Esterase 500 H, Urine RBC 0 SEEN, Urine WBC 5-10 SEEN, Ur Squamous Epith Cells 0-5 SEEN, Urine Bacteria 0 SEEN, Urine Mucus 0 SEEN 09/28/24 14:04: POC Glucose 129 H 09/28/24 16:28: POC Glucose 343 H 09/28/24 19:25: POC Glucose 352 H 09/28/24 22:32: POC Glucose 82 09/29/24 05:46: WBC 5.0, RBC 3.62 L, Hgb 11.1 L, Hct 32.8 L, MCV 90.6, MCH 30.7, MCHC 33.8, RDW Std Deviation 40.3, RDW Coeff of Imelda 12.2, Plt Count 355, MPV 9.7, Immature Gran % (Auto) 0.400, Neut % (Auto) 53.7, Lymph % (Auto) 30.6, [place] % (Auto) 11.9 H, Eos % (Auto) 2.6, Baso % (Auto) 0.8, Absolute Neuts (auto) 2.7, Absolute Lymphs (auto) 1.54, Nucleated RBC % 0, Sodium 136, Potassium 3.7, Chloride 99, Carbon Dioxide 25.6, Anion Gap 11, BUN 26 H, Creatinine 0.70, Estim Creat Clear Calc 56.50, Est GFR (MDRD) Non-Af 93, BUN/Creatinine Ratio 37.9 H, Glucose 91, Calcium 9.3, Phosphorus 4.5, Magnesium 2.3 H Radiography Diagnostic Testing: Radiology Impression Brain CT 09/28/24 09:36 IMPRESSION: No acute intracranial abnormalities. Chronic findings as detailed. Reading Location: [facility] Chest X-Ray 09/28/24 10:05 IMPRESSION: No acute cardiopulmonary abnormalities. Reading Location: [facility] Rhythm Strip Rhythm Strip: Sinus Rhythm Rate: 67 Ectopy: None Physical Exam Narrative GENERAL: Patient appears restless HEENT: Atraumatic; normocephalic EYES; Anicteric, Normal Conjunctiva NECK; supple, normal thyroid, RESPIRATORY: Diminished to auscultation CARDIOVASCULAR: Regular S1 S2, GI: soft, normoactive bowel sounds, : No Renal angle tenderness; EXTREMITIES: No edema, no clubbing, MUSCULOSKELETAL: no muscle wasting NEURO: Awake; no lateralizing signs. SKIN: No Rash PSYCH; Flat affect Assessment & Plan Assessment/Plan (1) Acute UTI: (2) Adult failure to thrive: PLAN: Plan Patient is a 69-year-old lady presented with altered mental status 1. Acute metabolic encephalopathy ? Suspected to be secondary to acute cystitis admitted to regular nursing floor for treatment of underlying etiology ? 09/29/2024; patient appears to be back to baseline awaiting urine cultures 2. Acute cystitis ? Patient started on ceftriaxone cultures including blood and urine sent 3. Diabetes mellitus type 1 ? Patient is on long-acting insulin in addition to scheduled short acting insulin?continue home regimen placed on Accu-Cheks AC and at bedtime with sliding scale coverage ? 09/29/2024; patient blood culture controlled not obtained. Did increase her long-acting insulin dose from 13 unit nightly to 15 units twice daily 4. Physical deconditioning ? Requested for PT OT eval and social service director to assist with discharge planning 5. Dyslipidemia ?Patient is on statin therapy, continued at home dose 6. Hypertension ? Blood pressure controlled, home medications continued with dose adjustment as needed 7. DVT prophylaxis ? On enoxaparin 8. Anemia ? Secondary to chronic disorder monitoring H&H and transfuse if patient becomes symptomatic or hemoglobin falls below 7 CODE STATUS; full Charges/Coding Visit Charges Inpatient E&M: 88506 Subs Hosp L2
[2024-09-29 07:53] VITALS: BP 117/48; PULSE 69; RESP 18; TEMP 36.5; O2SAT 100
[2024-09-29] MEDS: 0.9% Normal Saline (250mL Bag) 250 ML 15 ML IV (09:57)
[2024-09-29] MEDS: 0.9% Saline Lock 10 ML Syringe IV (09:58)
[2024-09-29 14:00] VITALS: BP 106/56; PULSE 72; RESP 18; TEMP 36.6; O2SAT 100
[2024-09-29 20:40] VITALS: BP 121/60; PULSE 80; RESP 18; TEMP 36.6; O2SAT 98
[2024-09-29] MEDS: Insulin Glargine-YFGN 100 UNIT/ML Pen 13 UNIT SC (20:46)
[2024-09-30 03:08] VITALS: BP 122/58; PULSE 65; RESP 18; TEMP 36.4; O2SAT 100
[2024-09-30 06:48] LABS: Hematocrit 31.0 % (37-47); Hemoglobin 10.7 g/dL (12.0-15.0); Immature Granulocytes Count 0.030 X10^3/uL (0.0-0.0); Mean Corp Hgb Conc 34.5 g/dL (32-36); Mean Corpuscular Volume 89.3 fL (81-99); Mean Platelet Vol. 9.6 fl (6.2-12.0); NRBC Flagged by Analyzer 0 % (0-5); Platelet Count 326 K/mm3 (150-450); RBC Distribution Width CV 12.1 % (11.6-14.6); RBC Distribution Width SD 39.2 fl (35.1-43.9); Red Blood Count 3.47 M/mm3 (4.2-5.4); White Blood Count 6.5 K/mm3 (4.4-11.0)
[2024-09-30 07:12] LABS: Anion Gap 10 (5-15); BUN 20 mg/dL (4-19); BUN/Creat Ratio 31.4 RATIO (10-20); Calcium,Total 8.9 mg/dL (7.6-11.0); Carbon Dioxide 25.0 mmol/L (21.0-32.0); Chloride 100 mmol/L (98-108); Estimated Creatinine Clearance 56.50 ml/min (50-250); Glucose 194 mg/dL (70-99); Potassium 4.0 mmol/L (3.3-5.1)
[2024-09-30 08:25] VITALS: BP 93/49; PULSE 73; RESP 17; TEMP 36.5; O2SAT 97
[2024-09-30] MEDS: Cholecalciferol (VIT D3) 25 MCG TABLET (1,000 UNITS) PO (08:29)
--- NOTE | 2024-09-30 10:43 | PN.HOSP_ITS ---
Subjective Subjective Doing well today, her altered mental status appears to have resolved however she did have some agitation last night. Urine cultures and blood culture still pending Objective Data Objective Data Vital Signs: Vital Signs Temp Pulse Resp BP Pulse Ox O2 Del Method 97.7 F L 73 17 93/49 L 97 Room Air 09/30/24 08:25 09/30/24 08:25 09/30/24 08:25 09/30/24 08:25 09/30/24 08:25 09/30/24 08:42 Oxygen Delivery Method Room Air Weight: 129 lb 10.109 oz Body Mass Index (BMI) 21.6 Intake & Output: Intake and Output for Last 24 Hours 09/29/24 09/30/24 10/01/24 03:59 03:59 03:59 Intake Total 950 / 950 1891.25 / 1891.25 450 / 450 Balance 950 / 950 1891.25 / 1891.25 450 / 450 Lab / Micro Data 09/30/24 06:22 09/30/24 06:22 Labs: Laboratory Results - last 24 hr 09/29/24 11:45: POC Glucose 242 H 09/29/24 17:01: POC Glucose 99 09/29/24 20:33: POC Glucose 117 H 09/30/24 03:19: POC Glucose 161 H 09/30/24 06:22: WBC 6.5, RBC 3.47 L, Hgb 10.7 L, Hct 31.0 L, MCV 89.3, MCH 30.8, MCHC 34.5, RDW Std Deviation 39.2, RDW Coeff of Imelda 12.1, Plt Count 326, MPV 9.6, Immature Gran % (Auto) 0.500, Neut % (Auto) 64.7, Lymph % (Auto) 23.3, [place] % (Auto) 8.6, Eos % (Auto) 2.1, Baso % (Auto) 0.8, Absolute Neuts (auto) 4.2, Absolute Lymphs (auto) 1.52, Nucleated RBC % 0, Sodium 135, Potassium 4.0, Chloride 100, Carbon Dioxide 25.0, Anion Gap 10, BUN 20 H, Creatinine 0.63 L, Estim Creat Clear Calc 56.50, Est GFR (MDRD) Non-Af 95, BUN/Creatinine Ratio 31.4 H, Glucose 194 H, Calcium 8.9 09/30/24 08:25: POC Glucose 252 H Micro: Microbiology 09/28/24 09:55 Urine, Clean Catch Urine Culture - Final GNR lactose agent licensing clerk Mixed Gram Positive Organisms Rhythm Strip Rhythm Strip: Sinus Rhythm Rate: 67 Ectopy: None Physical Exam Narrative General: Alert, Oriented x3, Cooperative, No apparent distress HEENT: Atraumatic, PERRLA, EOMI, Normocephalic Oral: Moist Mucosa Neck: Supple, No JVD Lungs: Diminished, Normal air movement, No rhonchi, No wheeze, No rales Cardiovascular: Regular rate, Regular Rhythm, Normal S1, Normal S2, No murmurs Abdomen: Soft, Non Tender, Non-Distended, No Hepato-splenomegaly Extremities: No edema, Capillary Refill Less than 3 Seconds Skin: No rashes, No breakdown Musculoskeletal: No Tenderness to Palpation of Joints or Extremities Neurological: No focal neurological deficits, Motor Exam 5/5 strength throughout, Sensory exam intact to light touch and pain Psych/Mental Status: Normal Affect, Appropriate Assessment & Plan Assessment/Plan (1) Acute UTI: (2) Adult failure to thrive: PLAN: Plan 1. Acute metabolic encephalopathy secondary to UTI ? Urine cultures are pending, there is a gram-negative edinson but this is less than the thousand CFU's of the rest is of mixed gram-positive gram-negative indicating contamination ? Continue with Rocephin ? Blood cultures are pending ? Altered mental status appears to be resolved 2. DM2 ? Continue with insulin ? Will monitor make adjustments as necessary ? Accu-Cheks ACHS 3. Essential HTN/HLD ? Blood pressure stable ? Continue with her home cholesterol medications ? Will monitor make adjustments as necessary ? Continue with her home blood pressure medications DVT: Lovenox Charges/Coding Visit Charges Inpatient E&M: 83061 Subs Hosp L2
--- NOTE | 2024-09-30 14:37 | CASEMGMT ---
Social Work- SW met with pt to offer support and discuss concerns regarding d/c home. Pt was oriented x 3 and able to provide an accurate timeline of admission. Pt discussed her confusion at admission, reporting that she felt she was having a panic attack and stating that she could not verbalize the words and thoughts that she had. Pt reports that her neighbor who assists with transportation called the squad for her. Pt reports that she lives alone, as 2 years prior. Pt has a step-son that she sees once per month when he comes to do honey do items and have lunch together. Pt reports siblings in [place] and [place]. Pt reports that she played [employer] in the [employer] for over 20 years and used to have a much larger support system locally. Pt shared that she was for 39 years, but does not feel lonely although she is alone. Pt did report that she would like to stay here because of the wonderful care she gets and the good food. Pt avoidant of discussing AL, but spoke about in-home care. SW provided resources on private duty home care, as well as care patrol and direction home. [facility] remains available to follow. [place]
[2024-09-30 14:54] VITALS: BP 114/50; PULSE 74; RESP 17; TEMP 36.7; O2SAT 98
--- NOTE | 2024-09-30 16:15 | CHAPLAIN ---
Type of Pastoral Visit _x__ Initial Visit ___ Follow-up Visit ___ On-call Visit ___ General Patient Visit ___ Spiritual Assessment ___ Family Conference ___ Bereavement ___ Rapid Response ___ Code Blue ___ Other (describe below) Pastoral Care Referral From _x__ Patient ___ Family ___ Nurse ___ Physician _x__ Cosmetology Professor ___ Residential Sales Manager ___ Other (describe below) Sacrament/Intervention _x__ Active listening ___ Anointing ___ Congregation _x__ Bereavement ___ Communion _x__ Vania exploration ___ _x__ Life review _x__ Prayer ___ Reconciliation ___ Sacrament of Sick _x__ Supportive presence ___ Wedding _x__ Other (describe below) Pastoral Comments patient had requested a visit from the farm management agent; SW also alerted this farm management agent to request by patient for a visit due to her asking of specific questions; patient is sitting in her chair alert and oriented; pt asks several questions of the farm management agent about his tenure and work at the hospital; pt discloses that her was a patient here in 2021 and in 2022, the last being his time of ; pt remembers the care given to him and her and to the seeking of solitude; pt states that she would like to see improvements to the hospital chapel and asks this farm management agent how to address her concerns; information shared and agreements of how to pursue; also discussed were the ability of patient to handle her current situations and to find comfort in her loss; pt is offered support concerning her presenting illness; pt reports feeling much better and in better cognition than the day she arrived to ED; pt has a vania heritage but is not actively involved in a vania community; pt says that maybe I can find purpose now by focusing on how to help support the chapel at this hospital; prayer and presence welcomed and given
[2024-09-30 21:02] VITALS: BP 123/45; PULSE 66; RESP 18; TEMP 36.8; O2SAT 99
[2024-09-30] MEDS: Insulin Glargine-YFGN 100 UNIT/ML Pen 13 UNIT SC (21:12)
[2024-10-01 06:03] LABS: Hematocrit 29.2 % (37-47); Hemoglobin 9.9 g/dL (12.0-15.0); Immature Granulocytes Count 0.010 X10^3/uL (0.0-0.0); Mean Corp Hgb Conc 33.9 g/dL (32-36); Mean Corpuscular Volume 90.4 fL (81-99); Mean Platelet Vol. 9.9 fl (6.2-12.0); NRBC Flagged by Analyzer 0 % (0-5); Platelet Count 315 K/mm3 (150-450); RBC Distribution Width CV 12.1 % (11.6-14.6); RBC Distribution Width SD 40.2 fl (35.1-43.9); Red Blood Count 3.23 M/mm3 (4.2-5.4); White Blood Count 5.5 K/mm3 (4.4-11.0)
[2024-10-01 06:15] VITALS: BP 146/62; PULSE 64; RESP 18; TEMP 36.5; O2SAT 100
[2024-10-01 06:28] LABS: Anion Gap 10 (5-15); BUN 24 mg/dL (4-19); BUN/Creat Ratio 36.1 RATIO (10-20); Calcium,Total 8.8 mg/dL (7.6-11.0); Carbon Dioxide 21.8 mmol/L (21.0-32.0); Chloride 98 mmol/L (98-108); Estimated Creatinine Clearance 56.50 ml/min (50-250); Glucose 303 mg/dL (70-99); Potassium 4.5 mmol/L (3.3-5.1)
[2024-10-01] MEDS: Cholecalciferol (VIT D3) 25 MCG TABLET (1,000 UNITS) PO (08:09)
[2024-10-01] MEDS: 0.9% Saline Lock 10 ML Syringe IV (09:09)
--- NOTE | 2024-10-01 09:20 | DCINST_ITS ---
Discharge Instructions DC O2, CPAP, BIPAP needs Home O2 Discharge instructions: No Dressing / Incision Discharge Activity: Return to Normal Activity Dressing / Incision Call your doctor if you observe: Fever of 101 or Higher, Shortness of breath, Dizziness, Fainting spells, Swelling in the ankles, Chest pain and Increased palpitations (irregular heartbeat) Follow Up Care Test Results: Test results from this visit will be discussed in further detail at your follow- up appointment, if applicable. Discharge Plan Admission Admit Date/Time: 09/28/24 11:23 Attending Provider: Amadeo Kiran Primary Care Provider: Norberto Pabon Consulting Providers: Darian Nguyễn Discharge Orders/Prescriptions Prescriptions: New cefdinir 300 mg capsule 300 mg PO BID Qty: 6 0RF Continued insulin lispro [Humalog KwikPen Insulin] 100 unit/mL insulin pen 8 unit subcut TID insulin glargine [Lantus Solostar U-100 Insulin] 100 unit/mL (3 mL) insulin pen 13 unit subcut QPM multivitamin Tablet 1 tab PO QAM cholecalciferol (vitamin D3) 25 mcg (1,000 unit) capsule 25 mcg PO QDAY (DME) FreeStyle Yamil 3 Plus Sensor Device See Rx Instructions .Route Qty: 2 5RF Rx Instructions: 1 sensor q 15 days atorvastatin 10 mg tablet 10 mg PO DAILY Qty: 90 1RF lisinopril 40 mg tablet 40 mg PO DAILY Qty: 90 1RF Referrals / Follow Up: Nobrerto Pabon DO [Primary Care Provider] - Within 1 Week Disposition Disposition (needs filled in before D/C Order can be placed): Home, Self Care
--- NOTE | 2024-10-01 10:20 | NURSING ---
This RN went to pt room to give IV rocephin. When flushing IV, IV was leaking. IV was removed. Discharge orders were entered, so this RN asked Dr Kiran if he would like another IV inserted, or DC with PO antibiotics. Dr Kiran said pt was OK for discharge with PO abx and re-inserting IV was not necessary. Pt made aware and agreeable.
[2024-10-01 10:59] VITALS: BP 112/43; PULSE 77; RESP 18; O2SAT 97
--- NOTE | 2024-10-01 11:07 | PCM.DC.SUM ---
Providers Date of Admission: 09/28/24 Primary Care Physician: Dr. Norberto Pabon DO Reason For Visit: ACUTE METABOLIC ENCEPHALOPATHY Diagnosis Discharge Diagnosis (1) Acute UTI: Status: Acute Code(s): N39.0 - Urinary tract infection, site not specified (2) Adult failure to thrive: Status: Acute Code(s): R62.7 - Adult failure to thrive Medications at Discharge Home Medications insulin lispro 100 unit/mL subcutaneous pen (Humalog KwikPen (U-100) Insulin) 8 unit subcut TID SLIDING SCALE 06/09/21 blood-glucose sensor (FreeStyle Yamil 3 Plus Sensor device) #2 ea 06/20/24 cholecalciferol (vitamin D3) 25 mcg (1,000 unit) capsule 25 mcg PO QDAY supplementation 06/20/24 insulin glargine 100 unit/mL (3 mL) subcutaneous pen (Lantus Solostar U-100 Insulin) 13 unit subcut QPM DM Type 1 06/20/24 multivitamin 1 tab PO QAM supplementation 06/20/24 atorvastatin 10 mg tablet 10 mg PO DAILY high cholesterol #90 tabs 07/03/24 lisinopril 40 mg tablet 40 mg PO DAILY HTN #90 tabs 07/03/24 cefdinir 300 mg capsule 300 mg PO BID #6 caps 10/01/24 Hospital Course Operations None Procedures None Summary of Care Provided Minutes Spent on Discharge: 31 Hospital Course: Per HPI: FRANKY VILLANUEVA, is a 69 F who with past medical history is again for hypertension, dyslipidemia diabetes mellitus type 1 who was brought to the emergency department by the EMS squad. Patient's neighbor apparently called with complaint of patient acting differently and confused. Patient was brought to the emergency room subsequently workup including head CT came back unremarkable patient was already found to have slightly elevated WBC count in the urine as well as positive leukocyte esterase. Started on ceftriaxone admitted to regular nursing floor for further management Hospital Course: 1. Acute metabolic encephalopathy secondary to UTI?69-year-old female presented to the hospital with altered mental status and Monday. She was found to have a UA consistent with a UTI, urine cultures were negative, they grew gram-negative rods less than the thousand CFU's and mixed lou. However she has significant anxiety so she will be continued on antibiotics for 3 more days on discharge with cefdinir 300 mg p.o. twice daily. She did receive Rocephin while here and her encephalopathy did resolve. Blood cultures were unremarkable. I discussed with her the plan for discharge today she expressed understanding of the risks and benefits of going home and would like to go home today. 2. Type 1 diabetes, essential hypertension, hyperlipidemia are all chronic medical conditions which complicate her care. Her home medications were continued where appropriate Physical Exam Narrative General: Alert, Oriented x3, Cooperative, No apparent distress HEENT: Atraumatic, PERRLA, EOMI, Normocephalic Oral: Moist Mucosa Neck: Supple, No JVD Lungs: Diminished, Normal air movement, No rhonchi, No wheeze, No rales Cardiovascular: Regular rate, Regular Rhythm, Normal S1, Normal S2, No murmurs Abdomen: Soft, Non Tender, Non-Distended, No Hepato-splenomegaly Extremities: No edema, Capillary Refill Less than 3 Seconds Skin: No rashes, No breakdown Musculoskeletal: No Tenderness to Palpation of Joints or Extremities Neurological: No focal neurological deficits, Motor Exam 5/5 strength throughout, Sensory exam intact to light touch and pain Psych/Mental Status: Normal Affect, Appropriate Weight / BMI Weight Weight: 129 lb 10.109 oz Body Mass Index (BMI) 21.6 ABG / Lab / Microbiology Data 10/01/24 05:14 10/01/24 05:14 Laboratory: Laboratory Results - last 24 hr 09/30/24 11:51: POC Glucose 133 H 09/30/24 16:16: POC Glucose 91 09/30/24 21:09: POC Glucose 169 H 10/01/24 01:49: POC Glucose 132 H 10/01/24 05:14: WBC 5.5, RBC 3.23 L, Hgb 9.9 L, Hct 29.2 L, MCV 90.4, MCH 30.7, MCHC 33.9, RDW Std Deviation 40.2, RDW Coeff of Imelda 12.1, Plt Count 315, MPV 9.9, Immature Gran % (Auto) 0.200, Neut % (Auto) 62.0, Lymph % (Auto) 24.7, [place] % (Auto) 9.7, Eos % (Auto) 2.7, Baso % (Auto) 0.7, Absolute Neuts (auto) 3.4, Absolute Lymphs (auto) 1.35, Nucleated RBC % 0, Sodium 130 L, Potassium 4.5, Chloride 98, Carbon Dioxide 21.8, Anion Gap 10, BUN 24 H, Creatinine 0.67 L, Estim Creat Clear Calc 56.50, Est GFR (MDRD) Non-Af 94, BUN/Creatinine Ratio 36.1 H, Glucose 303 H, Calcium 8.8 10/01/24 08:07: POC Glucose 276 H Microbiology: Microbiology 09/28/24 14:30 Blood Culture (Wb) - Anticubital Right Blood Culture - Preliminary No growth in 48 hours. 09/28/24 09:55 Urine, Clean Catch Urine Culture - Final GNR lactose pipe coremaker Mixed Gram Positive Organisms D/C Instructions Call your doctor if you observe: Fever of 101 or Higher, Shortness of breath, Dizziness, Fainting spells, Swelling in the ankles, Chest pain and Increased palpitations (irregular heartbeat) DC O2, CPAP, BIPAP Needs Home O2 Discharge instructions: No Meaningful Use Info Meaningful Use Meaningful Use Diagnoses (Choose all that apply): None applicable Discharge Plan Admission Admit Date/Time: 09/28/24 11:23 Attending Provider: Amadeo Kiran Primary Care Provider: Norberto Pabon Consulting Providers: Darian Nguyễn Discharge Orders/Prescriptions Prescriptions: New cefdinir 300 mg capsule 300 mg PO BID Qty: 6 0RF Continued insulin lispro [Humalog KwikPen Insulin] 100 unit/mL insulin pen 8 unit subcut TID insulin glargine [Lantus Solostar U-100 Insulin] 100 unit/mL (3 mL) insulin pen 13 unit subcut QPM multivitamin Tablet 1 tab PO QAM cholecalciferol (vitamin D3) 25 mcg (1,000 unit) capsule 25 mcg PO QDAY (DME) FreeStyle Yamil 3 Plus Sensor Device See Rx Instructions .Route Qty: 2 5RF Rx Instructions: 1 sensor q 15 days atorvastatin 10 mg tablet 10 mg PO DAILY Qty: 90 1RF lisinopril 40 mg tablet 40 mg PO DAILY Qty: 90 1RF Referrals / Follow Up: Norberto Pabon DO [Primary Care Provider] - Within 1 Week (Dr. Pabon's office stated that the Doctor is going on medical leave and that the patient needs to find a new doctor.) Disposition Disposition (needs filled in before D/C Order can be placed): Home, Self Care Charges/Coding Visit Charges Inpatient E&M: 09445 Disch Hosp >30min
--- NOTE | 2024-10-01 11:16 | PHA.DC_ITS ---
Pharmacy [facility] Counseling Pharmacy Service has performed discharge medication reconciliation and counseling for this patient. 1. CEFDINIR 300MG PO BID X 3 DAYS The patient's discharge medication list was reviewed for discrepancies and discrepancies were resolved. The patient was counseled on the following discharge medications and changes in medications for homegoing were reviewed. The Reason for Use, instructions for use, and potential side effects were reviewed for all new medications. The patient's questions regarding all of their medications were answered. The patient was able to verbally demonstrate an understanding of their discharge medications. Medications at Discharge Home Medications insulin lispro 100 unit/mL subcutaneous pen (Humalog KwikPen (U-100) Insulin) 8 unit subcut TID SLIDING SCALE 06/09/21 blood-glucose sensor (GuestDrivenStyle Yamil 3 Plus Sensor device) #2 ea 06/20/24 cholecalciferol (vitamin D3) 25 mcg (1,000 unit) capsule 25 mcg PO QDAY supplementation 06/20/24 insulin glargine 100 unit/mL (3 mL) subcutaneous pen (Lantus Solostar U-100 Insulin) 13 unit subcut QPM DM Type 1 06/20/24 multivitamin 1 tab PO QAM supplementation 06/20/24 atorvastatin 10 mg tablet 10 mg PO DAILY high cholesterol #90 tabs 07/03/24 lisinopril 40 mg tablet 40 mg PO DAILY HTN #90 tabs 07/03/24 cefdinir 300 mg capsule 300 mg PO BID #6 caps 10/01/24
--- NOTE | 2024-10-01 11:42 | CASEMGMT ---
Addendum entered by Rosetta Mosley 10/01/24 13:30: [facility] spoke with Rola, pt neighbor and friend, who reports that pt has significant OCD and anxiety. Rola reports that pt asked the paramedics to remove their shoes when they arrived to transport her as an illustration of her OCD. Rola reports that pt has been resistant to assisted living in the past, but reports that there have been ongoing discussions. SW discussed information provided to pt. Rola reports that she believes pt would benefit from socialization of AL. Rola is agreeable to assisting pt with arrangement of private duty and assisting with connection to [facility] if pt decides on AL. Rola is also agreeable to check-in to verify mental health follow-up. PAPA discussed hospital transportation for appointments and contacts for pt needs. [facility] remains available to follow. [place] Addendum entered by Rosetta Mosley 10/01/24 12:06: [facility]A provided behavioral services rack card fro anxiety, as pt reported that it would be helpful to have someone like PAPA to talk to. [place] Original Note: Social Work- Sw met with pt to discuss discharge. Pt reports that she plans to hire privately from list SW provided, but now realizes that she may need AL if she has any additional episodes similar to what brought pt into hospital. [facility] provided AL list and made a note on [facility] paper to call if she decided on AL placement. SW made notations on [facility] information to indicate that they provide home services. Pt reports some anxiety about returning home due to episode and recognizes that she needs to be able to complete self-care tasks in order to remain at home. Pt reports that neighbor will assist pt with transport home and settling into home. Pt reports she does want to try to remain at home prior to exploring other options. [facility] remains available to follow. [place]
--- NOTE | 2024-10-01 14:53 | CHAPLAIN ---
Type of Pastoral Visit ___ Initial Visit _x__ Follow-up Visit ___ On-call Visit ___ General Patient Visit ___ Spiritual Assessment ___ Family Conference ___ Bereavement ___ Rapid Response ___ Code Blue ___ Other (describe below) Pastoral Care Referral From _x__ Patient ___ Family ___ Nurse ___ Physician ___ Steam Clothes Press Operator ___ Rattan Worker ___ Other (describe below) Sacrament/Intervention _x__ Active listening ___ Anointing ___ Quaker ___ Bereavement ___ Communion ___ Vania exploration ___ ___ Life review ___ Prayer ___ Reconciliation ___ Sacrament of Sick _x__ Supportive presence ___ Wedding ___ Other (describe below) Pastoral Comments patient reports that she is to be discharged and is encouraged by that fact; pt restates the work of [facility] that has given information and insights into future care sources; pt again speaks of her late and is given assurance from this millinery department manager that her information and interest in supporting a chapel at the hospital has been passed along; pt is pleased that this was handled for her;
== END 2024-10-01 17:04 | disposition home or self-care (01) | DRG 689 ==
LOC: ED 12:02 → MS3 12:32
PROVIDERS: Admitting Provider Internal Medicine; Emergency Provider Emergency Medicine; PCP Family Medicine; Visit Provider Family Medicine
DX: N30.00 Acute cystitis without hematuria (principal); G93.41 Metabolic encephalopathy; E10.40 Type 1 diabetes mellitus with diabetic neuropathy, unspecified; I10 Essential (primary) hypertension; Z79.4 Long term (current) use of insulin; E78.5 Hyperlipidemia, unspecified; R62.7 Adult failure to thrive; R53.1 Weakness; Z79.899 Other long term (current) drug therapy; Z68.21 Body mass index [BMI] 21.0-21.9, adult
CPT/HCPCS: 36415; 70450; 71046; 80048; 80053; 81001; 82077; 82962; 83735; 84100; 85025; 87040; 87086; 87088; 93005; 99285; A4216

== ENCOUNTER → 2024-12-31 | Outpatient (CLI) | payer MEDICARE, OTHER, SELFPAY ==
[2024-12-31 12:26] LABS: Hematocrit 33.5 % (37-47); Hemoglobin 11.6 g/dL (12.0-15.0); Mean Corp Hgb Conc 34.6 g/dL (32-36); Mean Corpuscular Volume 90.8 fL (81-99); Mean Platelet Vol. 10.1 fl (6.2-12.0); Platelet Count 423 K/mm3 (150-450); RBC Distribution Width CV 12.2 % (11.6-14.6); RBC Distribution Width SD 40.6 fl (35.1-43.9); Red Blood Count 3.69 M/mm3 (4.2-5.4); White Blood Count 10.2 K/mm3 (4.4-11.0)
[2024-12-31 13:15] LABS: AST(SGOT) 22 U/L (<=31); Alanine Aminotransfer ALT/SGPT 22 U/L (<=34); Albumin, Serum 4.3 g/dL (3.4-4.8); Alkaline Phosphatase 112 U/L (35-104); Anion Gap 12 (5-15); BUN 21 mg/dL (4-19); BUN/Creat Ratio 29.1 RATIO (10-20); Calcium,Total 9.9 mg/dL (7.6-11.0); Carbon Dioxide 28.2 mmol/L (21.0-32.0); Chloride 90 mmol/L (98-108); Cholesterol 202 mg/dL (<=200); Globulin 3.0 g/dL (2.2-4.2); Glucose 368 mg/dL (70-99); Low Density Lipoprotein Calc. 77 mg/dL; Potassium 4.0 mmol/L (3.3-5.1); Triglycerides 72 mg/dL; Very Low Density Lipoprotein 14 mg/dL (5-40); Vitamin D,25 Hydroxy 40.1 ng/mL (30-100); cholesterol:hdl ratio screen 1.80
== END | disposition home or self-care (01) ==
LOC: MTLAB 09:18
PROVIDERS: PCP Family Medicine; Referring Provider Family Medicine; Visit Provider Family Medicine
DX: I10 Essential (primary) hypertension (principal); E11.40 Type 2 diabetes mellitus with diabetic neuropathy, unspecified; E78.5 Hyperlipidemia, unspecified; Z78.0 Asymptomatic menopausal state
CPT/HCPCS: 36415; 80053; 80061; 82306; 83036; 84443; 85027